=== PATIENT | male | born 1955 | race Caucasian/White ===

== ENCOUNTER 2016-04-17 08:34 | Emergency (ER) | payer MEDICARE, OTHER ==
[~2016-04-17] VITALS: Ht 175.3 cm; Wt 120.0 kg
[~2016-04-17 08:34] MED LIST: AMIT50TA3 PO; APR50 PO; ATOR40TA68 PO; CARV12.579 PO; CLON-379 PO; CLOP75TA28 PO; CYCL-319 PO; DEXL60CA2 PO; DULO60CA6 PO; FENO145T19 PO; GABA-528 PO; HYDR-2059 PO; ICOS1CAP PO; INSU200I4 SC; METO50TA16 PO; MIDO5TAB19 PO; ONDA4TAB8 PO; TAMS0.4C2 PO; ZOLP10TA PO
[2016-04-17 08:36] VITALS: Ht 175.3 cm; Wt 120.0 kg
[2016-04-17] MEDS ORDERED: ALBUTEROL 0.5% (NEB) 2.5 MG/0.5 ML AMP INH STA ×2 (08:39→11:17)
[2016-04-17] MEDS ORDERED: LIDOCAINE 1% (MDV) 20 ML INJ SC ONE (09:30)
--- NOTE | 2016-04-17 09:30 | RADRPT ---
PROCEDURE: Chest x-ray CLINICAL INDICATION: SOB. TECHNIQUE: One-view frontal. COMPARISON: 12/08/2015 FINDINGS: The patient has taken a limited inspiration. The cardiac silhouette is mildly enlarged. Dual lead AICD device is again noted overlie the right shoulder. No infiltrates are noted. No hilar abnormalities are noted. No pneumothorax is visualized. Mild aortic calcification/atherosclerosis is noted. IMPRESSION: 1. No active cardiopulmonary changes. RPTAT: HH .Karl Davis MD, Date Time Electronically viewed and signed by .Karl Davis MD, on 04/17/2016 09:29 .G/
[2016-04-17 09:35] LABS: BASOPHILS % 0.3 % (0.0-2.0); EOSINOPHILS # 0.4 10^3/ul (0.0-0.5); HEMATOCRIT 32.7 % (42.0-52.0); HEMOGLOBIN 10.9 g/dl (14.0-18.0); LYMPHOCYTES # 1.5 10^3/ul (0.8-2.9); LYMPHOCYTES % 12.1 % (15.0-51.0); MEAN CORPUSCULAR HEMOGLOBIN 32.2 pg (29.0-33.0); MEAN CORPUSCULAR HGB CONC 33.3 g/dl (32.0-37.0); MEAN CORPUSCULAR VOLUME 96.6 fl (82.0-101.0); MEAN PLATELET VOLUME 7.8 fl (7.4-10.4); MONOCYTE # 0.9 10^3/ul (0.3-0.9); NEUTROPHIL # 9.7 10^3/ul (1.6-7.5); NEUTROPHILS % 77.6 % (39.0-77.0); PLATELET COUNT 260 10^3/UL (140-440); RED BLOOD COUNT 3.38 10^6/ul (4.70-6.10); RED CELL DISTRIBUTION WIDTH 17.5 % (11.5-14.5); UNCORRECTED WBC 12.5 10^3/ul (4.8-10.8); WHITE BLOOD COUNT 12.5 10^3/ul (4.8-10.8)
[2016-04-17 09:37] LABS: CONDITION 1; LH ANALYZER COMMENTS 1
[2016-04-17 09:41] LABS: ALBUMIN 4.4 g/dl (3.3-4.9)
[2016-04-17 09:42] LABS: POTASSIUM 4.1 mmol/L (3.5-5.1)
[2016-04-17 09:44] LABS: BILIRUBIN,INDIRECT 0.2 mg/dl (0-1.1); BILIRUBIN,TOTAL 0.2 mg/dl (0.2-1.3); CREATININE 1.54 mg/dl (0.61-1.24)
[2016-04-17 09:45] LABS: ALBUMIN/GLOBULIN RATIO 1.22; CALCIUM 8.9 mg/dl (8.4-10.2)
[2016-04-17 09:46] LABS: INR 0.99; PROTIME 13.1 Sec (12.2-14.2)
[2016-04-17 09:47] LABS: PARTIAL THROMBOPLASTIN TIME 34.8 Sec (25.0-35.0)
[2016-04-17 09:57] LABS: TROPONIN-I 0.035 ng/ml (0.00-0.12)
--- NOTE | 2016-04-17 10:17 | RADRPT ---
PROCEDURE: US Abdominal Aorta. CLINICAL INDICATION: AAA screening. TECHNIQUE: Transabdominal ultrasound of the aorta was performed with sagittal and transverse imagi ng as well as color and Doppler interrogation. COMPARISON: None available FINDINGS: Proximal aorta: 1.8 cm in diameter. Mid aorta: 1.6 cm in diameter. IMPRESSION: Examination is limited due to overlying bowel gas. The distal segment of the abdominal aorta is not well visualized. No evidence of aortic aneurysm in the visualized segments of the abdominal aorta. RPTAT: EE .Faizan Cleary MD, MD Date Time Electronically viewed and signed by .Faizan Cleary MD, MD on 04/17/2016 10:20 .C/
--- NOTE | 2016-04-17 12:57 | ERD ---
ER Documentation Chief Complaint Date/Time DATE: 04/17/16 TIME: 08:35 Chief Complaint PT IN ED FOR EVAL OF SOB. HPI On arrival history is extremely limited due language barrier but was subsequently obtained through the patient's son and then later his . 60-year-old male with extensive medical history including hypertension, dyslipidemia, diabetes mellitus type 2, COPD, oxygen dependent, end-stage renal disease on dialysis, morbid obesity, recurrent syncopal episode status post AICD placement, coronary artery disease, severe peripheral vascular disease and congestive heart failure brought to the ED in a wheelchair after dialysis today complaining of increasing shortness of breath. For the last 2 days has had nonspecific URI with nasal congestion, nonproductive cough and mild increasing shortness of breath and wheezing. Did not feel better after dialysis today. Denies chest pain or palpitation. No abdominal pain, nausea vomiting. Denies leg pain or swelling. No headache, neck pain, focal weakness or numbness. No fevers or chills. ROS All systems reviewed and are negative except as per history of present illness. Medications Home Meds Active Scripts Ondansetron Hcl* (Zofran*) 4 Mg Tablet, 4 MG PO Q8H Y for NAUSEA AND/OR VOMITING , #10 TAB Prov:MELVIN MONTGOMERYJACQUE DO 12/02/15 Reported Medications Icosapent Ethyl (VASCEPA) 1 Gm Capsule, 1 GM PO BID, CAP 12/02/15 Amitriptyline Hcl* (Amitriptyline Hcl*) 50 Mg Tablet, 50 MG PO QHS, #30 TAB 12/02/15 Dexlansoprazole (Dexilant) 60 Mg Cap., 60 MG PO DAILY, #30 CAP 09/27/15 Cyclobenzaprine Hcl* (Cyclobenzaprine Hcl*) 10 Mg Tablet, 10 MG PO TID, #90 TAB 09/27/15 Carvedilol* (Carvedilol*) 12.5 Mg Tablet, 12.5 MG PO BID, #60 TAB 09/27/15 Hydrocodone Bit-Acetaminophen* (Hydrocodone-APAP*) 10-325 Tablet, 1 TAB PO BID Y for PAIN, TAB 09/27/15 Insulin Degludec (Tresiba Flextouch U-200) 200 Unit/1 Ml Insuln.pen, 40 UNITS SC QHS, #15 07/28/15 Fenofibrate Nanocrystallized* (Fenofibrate*) 145 Mg Tablet, 145 MG PO DAILY, #30 07/28/15 Gabapentin* (Gabapentin*) 800 Mg Tablet, 800 MG PO TID, #90 07/28/15 Clopidogrel Bisulfate (Clopidogrel) 75 Mg Tablet, 75 MG PO DAILY, #30 07/28/15 Duloxetine Hcl* (Cymbalta*) 60 Mg Capsule.dr, 60 MG PO DAILY, CAP 07/28/15 Midodrine* (Midodrine*) 5 Mg Tablet, 5 MG PO TID, #90 07/28/15 Hydralazine Hcl* (Hydralazine Hcl*) 50 Mg Tab, 50 MG PO Q8, #90 TAB 07/28/15 Clonidine Hcl* (Clonidine Hcl*) 0.1 Mg Tab, 0.1 MG PO BID Y for ELEVATED BLOOD PRESSURE, TAB 07/28/15 Atorvastatin* (Atorvastatin*) 40 Mg Tablet, 40 MG PO QHS, #30 TAB 07/28/15 Tamsulosin Hcl* (Tamsulosin Hcl*) 0.4 Mg Cap.er.24h, 0.4 MG PO HS, CAP 07/28/15 Metoprolol Succinate* (Toprol XL*) 50 Mg Tab.er.24h, 50 MG PO DAILY, #30 TAB 07/28/15 Zolpidem Tartrate* (Ambien*) 10 Mg Tablet, 10 MG PO QHS Y for INSOMNIA, TAB 07/28/15 Discontinued Reported Medications Icosapent Ethyl (VASCEPA) 1 Gm Capsule, 1 GM PO BID, CAP 09/27/15 Allergies Allergies: Coded Allergies: No Known Allergies (Verified Allergy, Mild, 12/03/15) PMhx/Soc Reviewed in chart. As per HPI. History of Surgery: Yes (HTN, [place], COPD, GERD, DM, CKD W/ DIALYSIS, DIABETIC FOOT, RT TOE AMP.) Anesthesia Reaction: No Hx Neurological Disorder: No Hx Respiratory Disorders: Yes (COPD) Hx Cardiac Disorders: Yes (HTN, heart attack, ) Hx Psychiatric Problems: Yes (depression) Hx Miscellaneous Medical Probl: Yes (HTN, [place], COPD, GERD, DM, CKD W/ DIALYSIS, DIABETIC FOOT, RT TOE AMP.) Hx Alcohol Use: No Hx Substance Use: No Hx Tobacco Use: Yes Smoking Status: Never smoker FmHx COPD, diabetes and hypertension Physical Exam Vitals Vital Signs Date Time Temp Pulse Resp B/P Pulse Ox O2 Delivery O2 Flow Rate FiO2 04/17/16 12:10 98.1 92 14 116/44 99 Room Air 2.0 04/17/16 11:27 91 19 99 Nasal Cannula 2.0 04/17/16 10:18 98.1 92 16 157/57 100 Room Air 3.0 04/17/16 08:53 93 20 99 Nasal Cannula 3.0 04/17/16 08:49 Nasal Cannula 2.0 04/17/16 08:49 Nasal Cannula 2 04/17/16 08:36 97.9 98 18 136/120 99 Physical Exam Const: Alert, mild to moderate respiratory distress. Head: Atraumatic Eyes: Normal Conjunctiva ENT: Normal External Ears, Nose and Mouth. Neck: Full range of motion. No JVD Resp: Breath sounds diminished bilaterally with moderate expiratory wheezing and prolonged expiratory phase. No rales or rhonchi Cardio: Regular rate and rhythm, no murmurs Abd: Soft, distended, non tender, non distended. Normal bowel sounds. Negative fluid wave. No rebound or guarding Skin: No petechiae or rashes Back: No midline or flank tenderness Ext: No cyanosis. 1+ edema Neur: Awake and alert. Cranial nerves II through XII are grossly intact. No focal deficit observed. Psych: Appears anxious but not depressed. Result Diagram: 04/17/1692404/17/16924 Results 24 hrs Laboratory Tests Test 04/17/16 09:25 Activated Partial Thromboplast Time 34.8Sec Alanine Aminotransferase (ALT/SGPT) 33IU/L Albumin 4.4g/dl Albumin/Globulin Ratio 1.22 Alkaline Phosphatase 84IU/L Anion Gap 14 Aspartate Amino Transf (AST/SGOT) 45IU/L Basophils # 0.010^3/ul Basophils % 0.3% Blood Morphology Comment Blood Urea Nitrogen 14mg/dl Calcium Level 8.9mg/dl Carbon Dioxide Level 38mmol/L Chloride Level 92mmol/L Creatinine 1.54mg/dl Direct Bilirubin 0.00mg/dl Eosinophils # 0.410^3/ul Eosinophils % 3.0% Globulin 3.60g/dl Glucose Level 182mg/dl Hematocrit 32.7% Hemoglobin 10.9g/dl INR International Normalized Ratio 0.99 Indirect Bilirubin 0.2mg/dl Lymphocytes # 1.510^3/ul Lymphocytes % 12.1% Mean Corpuscular Hemoglobin 32.2pg Mean Corpuscular Hemoglobin Concent 33.3g/dl Mean Corpuscular Volume 96.6fl Mean Platelet Volume 7.8fl Monocytes # 0.910^3/ul Monocytes % 7.0% Neutrophils # 9.710^3/ul Neutrophils % 77.6% Nucleated Red Blood Cells # 0.010^3/ul Nucleated Red Blood Cells % 0.0/100WBC Platelet Count 78154^3/UL Potassium Level 4.1mmol/L Prothrombin Time 13.1Sec Prothrombin Time Ratio 1.0 Red Blood Count 3.3810^6/ul Red Cell Distribution Width 17.5% Sodium Level 140mmol/L Total Bilirubin 0.2mg/dl Total Protein 8.0g/dl Troponin I 0.035ng/ml White Blood Count 12.510^3/ul Current Medications Medications (Trade) Dose Ordered Sig/Rehana Route PRN Reason Start Time Stop Time Status Last Admin Dose Admin Albuterol (Proventil 0.5% (Neb)) 15 mg ONCE STAT INH 04/17/16 08:39 04/17/16 08:41 DC 04/17/16 08:53 Lidocaine (Xylocaine 1% (Mdv) 20 ml) 20 ml ONCE ONCE SC 04/17/16 09:30 04/17/16 09:31 DC Albuterol (Proventil 0.5% (Neb)) 15 mg ONCE STAT INH 04/17/16 11:17 04/17/16 11:18 DC 04/17/16 11:24 RHYTHM STRIP INTERPRETATION: Time: 08:55. Sinus rhythm. Ventricular rate 95. No ectopy. Indication: Shortness of breath. EKG: TIME: 08: 34. Sinus rhythm. Ventricular rate 98. Normal MD QRS. Nonspecific ST-T wave changes. No acute ST segment elevation or depression. No ectopy. EP Interpretation: Abnormal EKG. IMAGING: PROCEDURE: Chest x-ray CLINICAL INDICATION: SOB. TECHNIQUE: One-view frontal. COMPARISON: 12/08/2015 FINDINGS: The patient has taken a limited inspiration. The cardiac silhouette is mildly enlarged. Dual lead AICD device is again noted overlie the right shoulder. No infiltrates are noted. No hilar abnormalities are noted. No pneumothorax is visualized. Mild aortic calcification/atherosclerosis is noted. IMPRESSION: 1. No active cardiopulmonary changes. RPTAT: HH .Karl Davis MD, MD Date Time Electronically viewed and signed by .Karl Davis MD, MD on 04/17/2016 09: 29 .G/ Procedures/MDM DOCUMENTS REVIEWED: ED nurse, prior ED, prior records ED COURSE: Nebulized albuterol 15 mg/Atrovent 1 mg X 2 REEXAMINATION/REEVALUATION: Time: 11: 00. Improved but still with mild expiratory wheezing. MEDICAL DECISION MAKIN-year-old male with extensive medical history including hypertension, dyslipidemia, diabetes mellitus type 2, COPD, oxygen dependent, end-stage renal disease on dialysis, morbid obesity, recurrent syncopal episode status post AICD placement, coronary artery disease, severe peripheral vascular disease and congestive heart failure brought to the ED in a wheelchair after dialysis today complaining of increasing shortness of breath. Presentation consistent with COPD exacerbation possibly exacerbated by bronchitis. Symptoms resolved completely with nebulized beta agonists. Because of the patient's fragile diabetes and risk of hyperglycemia steroids were not given. No radiographic evidence of pneumonia or volume overload. No chest pain, ischemic EKG changes or elevated troponin. Observed in the ED for over 4 hours, multiple examinations were performed. At 12: 57 is doing well. Lungs are clear. No shortness of breath. Feels well and wants to go home. Counseled patient and regarding diagnostic workup, diagnosis and need for followup. Understands to return to ED immediately if symptoms recur, worsen or any other concerns. Departure Diagnosis: Primary Impression: Acute exacerbation of chronic obstructive pulmonary disease (COPD) Additional Impressions: Acute dyspnea End stage renal disease on dialysis Hypertension Hypertension type: essential hypertension Qualified Code: I10 - Essential hypertension AICD (automatic cardioverter/defibrillator) present Condition: Stable (Improved) Patient Instructions: Copd Flare JESE RIVERO MD Apr 17, 2016 12:44
[2016-04-17] MEDS ORDERED: ALBU8.5H3 INH (12:58)
[2016-04-17 13:10] VITALS: BP 118/55; PULSE 90; RESP 14; TEMP 98.3
== END 2016-04-17 13:12 | disposition home or self-care (01) ==
LOC: E/R 08:34
DX: J44.1 Chronic obstructive pulmonary disease with (acute) exacerbation (principal); I12.0 Hypertensive chronic kidney disease with stage 5 chronic kidney disease or end stage renal disease; N18.6 End stage renal disease; R06.00 Dyspnea, unspecified; E11.9 Type 2 diabetes mellitus without complications; I25.10 Atherosclerotic heart disease of native coronary artery without angina pectoris; I50.9 Heart failure, unspecified; E66.01 Morbid (severe) obesity due to excess calories; Z99.2 Dependence on renal dialysis; Z95.810 Presence of automatic (implantable) cardiac defibrillator; Z79.4 Long term (current) use of insulin; Z68.39 Body mass index [BMI] 39.0-39.9, adult; Z87.891 Personal history of nicotine dependence
CPT/HCPCS: 36415; 71010; 76775; 80053; 84484; 85025; 85610; 85730; 87400; 93005; 94644; 94645

== ENCOUNTER 2016-07-05 20:39 | Inpatient (IN) | payer MEDICARE, OTHER ==
[~2016-07-05] VITALS: Ht 157.5 cm; Wt 90.9 kg
[~2016-07-05 20:39] MED LIST changes: +ALBU8.5H3 INH; -APR50 PO; +HYDR-3672 PO
[2016-07-05] MEDS ORDERED: ASPIRIN 325 MG TAB PO STA (20:44)
[2016-07-05] MEDS ORDERED: ALBUTEROL 0.083% (NEB) 2.5 MG/3 ML AMP HHN STA (20:57)
[2016-07-05] MEDS ORDERED: LORAZEPAM 2 MG INJ IV ONE (21:00)
[2016-07-05] MEDS ORDERED: IPRATROPIUM (NEB) 0.5 MG/2.5 ML AMP HHN ONE (21:00)
[2016-07-05 21:01] LABS: ADD SCAN DIFF NO
[2016-07-05 21:12] LABS: BASOPHIL # 0.1 10^3/ul (0.0-0.1); BASOPHILS % 0.8 % (0.0-2.0); EOSINOPHILS # 0.5 10^3/ul (0.0-0.5); EOSINOPHILS % 4.3 % (0.0-7.0); HEMOGLOBIN 13.8 g/dl (14.0-18.0); LYMPHOCYTES # 3.8 10^3/ul (0.8-2.9); LYMPHOCYTES % 29.9 % (15.0-51.0); MEAN CORPUSCULAR HEMOGLOBIN 29.1 pg (29.0-33.0); MEAN CORPUSCULAR VOLUME 96.8 fl (82.0-101.0); MEAN PLATELET VOLUME 11.2 fl (7.4-10.4); MONOCYTE # 0.5 10^3/ul (0.3-0.9); NEUTROPHIL # 7.6 10^3/ul (1.6-7.5); NEUTROPHILS % 60.5 % (39.0-77.0); PLATELET COUNT 225 10^3/UL (140-415); RED BLOOD COUNT 4.75 10^6/ul (4.70-6.10); RED CELL DISTRIBUTION WIDTH 13.5 % (11.5-14.5); WHITE BLOOD COUNT 12.6 10^3/ul (4.8-10.8)
[2016-07-05 21:15] LABS: POTASSIUM 4.9 mmol/L (3.5-5.1)
[2016-07-05 21:16] LABS: INR 0.97; PROTIME 12.9 Sec (12.2-14.2)
[2016-07-05 21:16] LABS: AADO2 Arterial 91.7 mmHg (7.0-24.0); Allen Test ACCEPTAB; Arterial Base Excess -1.9 mmol/L (-3.0-3); Arterial COHb 0.3 % (0.0-3.0); Arterial Fraction of Oxyhgb 98.8 % (93.0-99.0); Arterial HCO3 26.5 mmol/L (22.0-26.0); Arterial MetHb 0.5 % (0.0-1.5); Arterial Total Hemglobin 13.1 g/dl (12.0-18.0); Blood Gas IEPAP 18/6; MODE MASK - BIPAP
[2016-07-05 21:17] LABS: PARTIAL THROMBOPLASTIN TIME 37.3 Sec (25.0-35.0)
[2016-07-05 21:19] LABS: CALCIUM 9.6 mg/dl (8.4-10.2)
[2016-07-05 21:44] LABS: TROPONIN-I 0.141 ng/ml (0.00-0.12)
--- NOTE | 2016-07-05 21:57 | RADRPT ---
PROCEDURE: XR Chest. CLINICAL INDICATION: Shortness of breath. TECHNIQUE: Portable AP upright view of the chest was obtained. COMPARISON: 04/17/2016 FINDINGS: The cardiomediastinal silhouette is enlarged, unchanged with a dual chamber right subclavian approac h cardiac pacemaker again noted. Interval development of interstitial edema. Small bilateral pleur al effusions with fluid in the minor fissure now identified. No evidence of pneumothorax. The osse ous structures are intact with no evidence for acute abnormality. Calcification is visible within th e aorta RPTAT:HJJR IMPRESSION: Interval development of interstitial edema and small pleural effusions including fluid in the minor fissure for this patient with stable cardiac silhouette enlargement and cardiac pacemaker, findings compatible with congestive heart failure pattern and not present on 04/17/2016. Physician Gilberto Date Time Electronically viewed and signed by Physician Gilberto on 07/05/2016 21:57 /
[2016-07-05] MEDS ORDERED: ONDANSETRON 4 MG INJ IV PRN (22:30)
[2016-07-05] MEDS ORDERED: ACETAMINOPHEN 325 MG TAB PO PRN (22:30)
[2016-07-05] MEDS ORDERED: ESOM40CA PO ×2 (22:38→23:45)
[2016-07-05] MEDS ORDERED: FER325 PO ×2 (22:38→23:45)
[2016-07-05] MEDS ORDERED: DOCU-159 PO ×2 (22:38→23:45)
[2016-07-05] MEDS ORDERED: FURO40TA4 PO ×2 (22:39→23:45)
[2016-07-05] MEDS ORDERED: GABA300C16 PO ×2 (22:40→23:45)
[2016-07-05] MEDS ORDERED: HYDR-906 PO (22:40)
[2016-07-05] MEDS ORDERED: APIX2.5T PO ×2 (22:41→23:45)
[2016-07-05] MEDS ORDERED: ASPI81TA3 PO ×2 (22:42→23:45)
[2016-07-05] MEDS ORDERED: METO-429 PO ×2 (22:43→23:45)
[2016-07-05] MEDS ORDERED: SEVE800T7 PO ×2 (22:44→23:45)
[2016-07-05] MEDS ORDERED: SITA100T8 PO ×2 (22:44→23:45)
[2016-07-05] MEDS ORDERED: NOVO3I SC ×2 (22:46→23:45)
[2016-07-05] MEDS ORDERED: INSU100I31 SQ ×2 (22:47→23:45)
[2016-07-05] MEDS ORDERED: LANT3I SC ×3 (22:49→23:45)
[2016-07-05] MEDS ORDERED: INSULIN LISPRO 100 UNIT/ML VIAL SC STA (23:22)
--- NOTE | 2016-07-05 23:31 | ERA ---
ER Documentation Chief Complaint Date/Time DATE: 07/05/16 TIME: 23:19 Chief Complaint BIBA RA 62,c/o SOB, wheezing,88% on room air,c/o back neck pain HPI This 61-year-old male brought on by paramedics in respiratory extremist on CPAP for shortness of breath that began earlier this evening. Satting 88% on room air on the paramedics arrival. He did have back and neck pain. Patient is unable to speak currently. I reviewed his EMR and he has been diagnosed with both COPD and CHF. He denies chest pain. Reportedly he missed 2 dialysis appointments. ROS Unobtainable because of clinical condition Medications Home Meds Reported Medications Insulin Glargine* (Lantus*) 100 Unit/Ml Soln, 40 UNIT SC QHS, #1 VIAL 07/05/16 Insulin Glargine* (Lantus*) 100 Unit/Ml Soln, 20 UNIT SC QAM, #1 VIAL 07/05/16 Insulin Degludec (Tresiba Flextouch U-100) 100 Unit/1 Ml Insuln.pen, 40 UNIT SQ QHS 07/05/16 Insulin Aspart* (Novolog Insulin Pen*) 100 Unit/Ml Soln, 10 UNIT SC WITH MEALS, EA 07/05/16 Sitagliptin* (Januvia*) 100 Mg Tablet, 100 MG PO DAILY, #30 TAB 07/05/16 Sevelamer Carbonate* (Renvela*) 800 Mg Tablet, 0.8 GM PO WITH MEALS, TAB 07/05/16 Metoprolol Tartrate* (Lopressor*) 50 Mg Tab, 50 MG PO DAILY, #60 TAB 07/05/16 Aspirin* (Aspirin* Chew) 81 Mg Tab.chew, 81 MG PO DAILY, TAB.CHEW 07/05/16 Apixaban* (Eliquis*) 2.5 Mg Tablet, 2.5 MG PO QAM, TAB 07/05/16 Hydrocodone/Acetaminophen ([place] 5-325 Tablet) 1 Each Tablet, 1 EACH PO Q6H, TAB 07/05/16 Gabapentin* (Gabapentin*) 300 Mg Capsule, 300 MG PO TID, #90 CAP 07/05/16 Furosemide* (Furosemide*) 40 Mg Tablet, 40 MG PO DAILY, TAB 07/05/16 Ferrous Sulfate* (Ferrous Sulfate*) 325 Mg Tabec, 325 MG PO TID, TAB 07/05/16 Esomeprazole Mag Trihydrate (Nexium) 40 Mg Capsule.dr, 40 MG PO DAILY, #30 CAP 07/05/16 Docusate Sodium* (Docusate Sodium*) 100 Mg Capsule, 100 MG PO TWICE A WEEK, #60 CAP 07/05/16 Dexlansoprazole (Dexilant) 60 Mg Cap..mp, 60 MG PO DAILY, #30 CAP 09/27/15 Cyclobenzaprine Hcl* (Cyclobenzaprine Hcl*) 10 Mg Tablet, 10 MG PO Q6H, #90 TAB 09/27/15 Carvedilol* (Carvedilol*) 12.5 Mg Tablet, 12.5 MG PO QAM, #60 TAB 09/27/15 Fenofibrate Nanocrystallized* (Fenofibrate*) 145 Mg Tablet, 145 MG PO DAILY, #30 07/28/15 Gabapentin* (Gabapentin*) 800 Mg Tablet, 800 MG PO TID, #90 07/28/15 Clopidogrel Bisulfate (Clopidogrel) 75 Mg Tablet, 75 MG PO DAILY, #30 07/28/15 Duloxetine Hcl* (Cymbalta*) 60 Mg Capsule.dr, 60 MG PO DAILY, CAP 07/28/15 Atorvastatin* (Atorvastatin*) 40 Mg Tablet, 40 MG PO QHS, #30 TAB 07/28/15 Tamsulosin Hcl* (Tamsulosin Hcl*) 0.4 Mg Cap.er.24h, 0.4 MG PO HS, CAP 07/28/15 Zolpidem Tartrate* (Ambien*) 10 Mg Tablet, 10 MG PO QHS Y for INSOMNIA, TAB 07/28/15 Discontinued Reported Medications Icosapent Ethyl (VASCEPA) 1 Gm Capsule, 1 GM PO BID, CAP 12/02/15 Amitriptyline Hcl* (Amitriptyline Hcl*) 50 Mg Tablet, 50 MG PO QHS, #30 TAB 12/02/15 Hydrocodone Bit-Acetaminophen* (Hydrocodone-APAP*) 10-325 Tablet, 1 TAB PO BID Y for PAIN, TAB 09/27/15 Insulin Degludec (Tresiba Flextouch U-200) 200 Unit/1 Ml Insuln.pen, 40 UNITS SC QHS, #15 07/28/15 Midodrine* (Midodrine*) 5 Mg Tablet, 5 MG PO TID, #90 07/28/15 Hydralazine Hcl* (Hydralazine Hcl*) 50 Mg Tab, 50 MG PO Q8, #90 TAB 07/28/15 Clonidine Hcl* (Clonidine Hcl*) 0.1 Mg Tab, 0.1 MG PO BID Y for ELEVATED BLOOD PRESSURE, TAB 07/28/15 Metoprolol Succinate* (Toprol XL*) 50 Mg Tab.er.24h, 50 MG PO DAILY, #30 TAB 07/28/15 Discontinued Scripts Albuterol Sulfate* (Proair HFA*) 8.5 Gm Hfa.aer.ad, 2 PUFF INH Q4H Y for WHEEZING AND SOB, #1 INHALER Prov:JESE RIVERO MD 04/17/16 Ondansetron Hcl* (Zofran*) 4 Mg Tablet, 4 MG PO Q8H Y for NAUSEA AND/OR VOMITING , #10 TAB Prov:MARCEL MONTGOMERY DO 12/02/15 Allergies Allergies: Coded Allergies: No Known Allergies (Verified Allergy, Mild, 07/05/16) PMhx/Soc History of Surgery: Yes (HTN, [place], COPD, GERD, DM, CKD W/ DIALYSIS, DIABETIC FOOT, RT TOE AMP.) Anesthesia Reaction: No Hx Neurological Disorder: No Hx Respiratory Disorders: Yes (COPD) Hx Cardiac Disorders: Yes (HTN, heart attack, ) Hx Psychiatric Problems: Yes (depression) Hx Miscellaneous Medical Probl: Yes (HTN, [place], COPD, GERD, DM, CKD W/ DIALYSIS, DIABETIC FOOT, RT TOE AMP.) Hx Alcohol Use: No Hx Substance Use: No Hx Tobacco Use: Yes Smoking Status: Current every day smoker Physical Exam Vitals Vital Signs Date Time Temp Pulse Resp B/P Pulse Ox O2 Delivery O2 Flow Rate FiO2 07/05/16 22:55 86 100 40 07/05/16 22:35 94 18 129/53 100 BIPAP 07/05/16 21:25 93 100 40 07/05/16 20:50 110 100 100 07/05/16 20:42 97.6 108 22 207/110 100 Physical Exam Const: [] Severe respiratory distress on BiPAP. Head: Atraumatic Eyes: Normal Conjunctiva ENT: Normal External Ears, Nose and Mouth. Neck: Full range of motion..~ No meningismus. Resp: Decreased basilar breath sounds, bilateral Rales, tachypnea Cardio: Regular mild tachycardia no murmurs Abd: Soft, non tender, non distended. Normal bowel sounds Skin: No petechiae or rashes Back: No midline or flank tenderness Ext: No cyanosis, mild bilateral pedal edema Neur: Awake and alert and oriented 3, no focal deficits, further neuro exam not possible currently Psych: Very anxious Result Diagram: 07/05/16205407/05/162054 Results 24 hrs Laboratory Tests Test 07/05/16 20:44 07/05/16 20:55 Blood Gas Specimen Source Blood arterial Arterial Blood Date Drawn 07/05/2016 9:03:17 PM Arterial Blood pH (Temp corrected) 7.249 Arterial Blood pCO2 (Temp correct) 61.9mmhg Arterial Blood pO2 (Temp corrected) 559.4mmHG Arterial Blood HCO3 26.5mmol/L Arterial Blood Base Excess -1.9mmol/L Arterial Blood Oxygen Saturation 99.6mmHG Vin Test ACCEPTAB Arterial Blood Gas Puncture Site Left Radial Arterial Blood Carboxyhemoglobin 0.3% Arterial Blood Methemoglobin 0.5% Blood Gas A-a O2 Differential 91.7mmHg Oxyhemoglobin Percent 98.8% Total Hemoglobin 13.1g/dl Blood Gas Temperature 37.0C Blood Gas Respiration Rate 14.0 Blood Gas Actual Respiration Rate 32 Blood Gas Modality MASK - BIPAP FiO2 100.0% Blood Gas Inspiratory Time 0.6 Blood Gas IPAP/EPAP Ratio 18/6 Blood Gas Critical Value Read Back Dacia BARRY MD Blood Gas Notified Whom AA Blood Gas Notified Time 07/05/2016 9:16:16 PM White Blood Count 12.610^3/ul Red Blood Count 4.7510^6/ul Hemoglobin 13.8g/dl Hematocrit 46.0% Mean Corpuscular Volume 96.8fl Mean Corpuscular Hemoglobin 29.1pg Mean Corpuscular Hemoglobin Concent 30.0g/dl Red Cell Distribution Width 13.5% Platelet Count 48515^3/UL Mean Platelet Volume 11.2fl Neutrophils % 60.5% Lymphocytes % 29.9% Monocytes % 4.0% Eosinophils % 4.3% Basophils % 0.8% Nucleated Red Blood Cells % 0.0/100WBC Neutrophils # 7.610^3/ul Lymphocytes # 3.810^3/ul Monocytes # 0.510^3/ul Eosinophils # 0.510^3/ul Basophils # 0.110^3/ul Nucleated Red Blood Cells # 0.010^3/ul Prothrombin Time 12.9Sec Prothrombin Time Ratio 1.0 INR International Normalized Ratio 0.97 Activated Partial Thromboplast Time 37.3Sec Sodium Level 145mmol/L Potassium Level 4.9mmol/L Chloride Level 102mmol/L Carbon Dioxide Level 27mmol/L Anion Gap 21 Blood Urea Nitrogen 40mg/dl Creatinine 2.00mg/dl Glucose Level 288mg/dl Calcium Level 9.6mg/dl Troponin I 0.141ng/ml B-Type Natriuretic Peptide 3190PG/ML Current Medications Medications (Trade) Dose Ordered Sig/Rehana Route PRN Reason Start Time Stop Time Status Last Admin Dose Admin Aspirin (Aspirin) 325 mg ONCE STAT PO 07/05/16 20:44 07/05/16 20:46 DC 07/05/16 22:34 Lorazepam (Ativan) 1 mg ONCE ONCE IV 07/05/16 21:00 07/05/16 21:01 DC 07/05/16 20:50 Ipratropium [place] (Atrovent 0.02% (Neb)) 1 mg ONCE ONCE HHN 07/05/16 21:00 07/05/16 21:01 DC 07/05/16 21:30 Albuterol (Proventil 0.083% (Neb)) 10 mg ONCE STAT HHN 07/05/16 20:57 07/05/16 20:59 DC 07/05/16 21:30 Ondansetron HCl (Zofran Inj) 4 mg ER BRIDGE PRN IV NAUSEA AND/OR VOMITING 07/05/16 22:30 07/06/16 22:29 Acetaminophen (Tylenol Tab) 650 mg ER BRIDGE PRN PO MILD PAIN/FEVER 07/05/16 22:30 07/06/16 22:29 Procedures/MDM Respiratory failure due to combined fluid overload for missing dialysis as well as a PDA exacerbation. Patient was returning CO2. Blood gas obtained 20 minutes after BiPAP showed significant CO2 retention with partially compensated respiratory acidosis. Is medially placed on BiPAP. Is given a breathing treatment of albuterol and Atrovent. Mild troponin elevation likely secondary to renal failure and missing dialysis. Did have mild lateral ST depressions suspicious for ischemia. Patient was treated with 325 g aspirin. Is also treated with lispro insulin for hyperglycemia. Is given 1 mg of Ativan for extreme anxiety on arrival. He did well on BiPAP his breathing is much improved. Previous been stabilized is now appropriate for telemetry. I spoke with Dr. Cruz who will be admitting. EKG interpretation: Sinus tachycardia rate of 116, normal axis, normal intervals , mild ST depressions in lateral leads suspicious for ischemia. air sampling and monitoring interpretation: Sinus tachycardia followed by normal sinus rhythm. No other arrhythmias Chest x-ray interpretation: New bilateral pleural effusions, no pneumothorax, no widened mediastinum, no infiltrate, no fractures Cardio care time 44 minutes: This include treatment of hypoxic respiratory failure, use of noninvasive positive pressure ventilation, chart review with interpretation of arterial blood gases, ventilator setting management, discussion with patient, , admitting doctor, consideration of invasive intubation, this does not include any billable procedures but does include multiple visits patient's bedside to reassess his cardio pulmonary status. Departure Diagnosis: Primary Impression: Acute respiratory failure with hypoxia Additional Impressions: Fluid overload COPD exacerbation Hyperglycemia due to type 2 diabetes mellitus Acute electrocardiogram changes Condition: Serious ASHAMATYRICCO CRYSTAL Jul 05, 2016 23:30
[2016-07-05] MEDS ORDERED: ZOLP10TA PO (23:45)
[2016-07-05] MEDS ORDERED: FENO145T19 PO (23:45)
[2016-07-05] MEDS ORDERED: DULO60CA6 PO (23:45)
[2016-07-05] MEDS ORDERED: CYCL-319 PO (23:45)
[2016-07-05] MEDS ORDERED: ATOR40TA68 PO (23:45)
[2016-07-05] MEDS ORDERED: CLOP75TA28 PO (23:45)
[2016-07-06] VITALS (15 sets, daily range): BP systolic 112–172; BP diastolic 58–83; PULSE 70–86; RESP 19–20; Ht 157.5 cm; Wt 90.9 kg
[2016-07-06] MEDS ORDERED: ONDANSETRON 4 MG INJ IV PRN
--- NOTE | 2016-07-06 00:09 | HP ---
Date/Time of Note Date/Time of Note DATE: 07/06/16 TIME: 00:03 Assessment/Plan VTE Prophylaxis VTE Prophylaxis Intervention: ambulation, anti-embolic stocking, LMWH VTE Contraindication Reason: peripheral vascular disease Lines/Catheters (ICD-10 Req.) IV Catheter Type (from Nrs): [place] [employer] line still needed: No Ervin in Place (from Nrsg): No Cont'd ervin catheter reason: urinary retention Diagnosis/Etiology Acute Renal Failure due to: Other (specify) (CKD stage 5 with preserved mild function.) Assessment/Plan Assessment/Plan 1.CHF exacerbation,syst.and diastolic 2.DM type 2-out of control 3.COPD exacerbation with Hx of severe respiratory failue and wheezing ; s/ p multiple intubations and BIPAP use. 4.CKD stage 5 5.Anemia of chronic disease-s/p multiple units of prbc Tx. 6.Sepsis- hx of cellulitis of right foot with s/p of distal amputation. S/P multiple vascular and debridement surgeries off feet Swelling of the foot with d/c and pain. 7.Osteomyelitis of the metatarsal(Hx )on the right. 8.Pain syndrome 9.Severe diabetic ophthalmo-neuro and nephropathy 10. Severe PAD 11.S/P ICD implantation 12.S/P recurrent syncopal episodes, clinical deaths, resuscitations, intubation, mechanical ventilation and successful extubation 13. Hx of possible seizure d/o 14.MD and memory impairment, anxiety,noncomplience. 15.Inability to control eating impulses 16.S/P multiple vascular procedures. 17.Increased appetite 18.Severe CAD 19.Memory impairment 20.C02 retention with current Pc02 more than 50s. BIPAP for now. 21.Multiorgan failure. 22.More irrational thinking and abnormal behavior. 23.Recurrent syncopal vs vent.fib. vs cardiac arrest vs seizure episodes, possible al of them with multiple intubations and Mechanical ventilation prior to ICD implantation. 24.Multiple hospitalizations 25.Hx of MRSA infections of the food and positive culture from blood.Hx of Vancomycin use at home and in hospital settings. the patient has very supportive family. Time Spent 1 hour 20 minutes. HPI/ROS Admit Date/Time Admit Date/Time Hx of Present Illness Admitted in severe SOB.Wheezing with pulmonary edema and hypercapnia.Improved after bipap and lasix along with bronchodilatory therapy in er while being in pain and sleepless condition. Most of the information taken from the . Missed 2-3 HD.Try to compensate with increase of the dose of a lasix. Took excessive amount of pepsy and cola with water. Noncompliant to medication while being in a trip to [place] for about 5 days. regrets that they took him to trip. While having a high blood sugar he was unable to control eating and drinking sweats. ROS Subjective hx not possible: pt critical Constitutional: chills, diaphoresis, disoriented, fatigue, nausea, weight change, No febrile, No improved, No no complaints, No other, No poor po Eyes: discharge, visual change, No no complaints, No other, No pain, No redness ENT: No bleeding, No congestion, No discharge, No dysphagia, No no complaints, No other, No pain, No sore throat Respiratory: cough, pleuritic pain, shortness of breath, wheezing Cardiovascular: chest pain, edema, lightheadedness, orthopenea, paroxysmal nocturnal dyspnea, No no complaints, No other, No palpitations Gastrointestinal: constipation, flatus, nausea, pain, passing stool, No blood, No decreased appetite, No diarrhea, No no complaints, No other, No vomiting Genitourinary: dysuria, flank pain, No bleeding, No discharge, No hematuria, No no complaints, No other Musculoskeletal: back pain, bone/joint pain, neck pain Skin: pruritis, skin lesions, No bruising, No erythema, No laceration, No no complaints, No other, No rash Neurologic: confusion, dizziness, headache, No focal-weakness, No no complaints, No other, No seizure, No syncope Endocrine: polydypsia, temp intolerance, weight change Lymphatic: No adenopathy, No lymphadema, No no complaints, No other, No tender nodes Psychological: anxiety, confusion, depression, other (On and confused.Unable to folow th track of thought every time.Impaire more short then skilled nursing memory.) Immunologic: pruritis PMH/Family/Social Past Medical History Medical History: angina, colitis, congestive heart failure, coronary artery disease, diabetes, diverticulitis, GERD, GI bleed, high cholesterol, hypertension, pancreatitis, peptic ulcer disease, renal disease, urinary tract infection Past Surgical History Past Surgical Hx: angioplasty, coronary bypass surgery, endoscopy Family History Significant Family History: asthma, heart disease, COPD, diabetes, hypertension , lung disease, renal disease, vascular disease Social History Alcohol Use: none Smoking Status: Current every day smoker Drug Use: none Exam/Review of Systems Vital Signs Vitals Vital Signs Date Time Temp Pulse Resp B/P Pulse Ox O2 Delivery O2 Flow Rate FiO2 07/05/16 22:55 86 100 40 07/05/16 22:35 18 129/53 BIPAP 07/05/16 20:42 97.6 Exam Constitutional: alert, frail, oriented (disorinted in time and place.), other (obese.), well developed Psych: anxiety, confusion, depression, No nl mood/affect, No no complaints, No other, No suicidal Head: atraumatic Eyes: EOMI, PERRL (unequal pupils with pale conjunctivas with prominent periorbital edema.), nl lids, No fundi, disc, No icteric, No nl conjunctiva, No nl sclera, No other ENMT: nl lips & teeth (no teet.Dentures.), No intubated, No mucosa pink and moist, No nl external ears & nose, No nl nasal mucosa & septum, No other, No tympanic membranes Neck: bruits, jvd, supple, thyromegaly, No masses, No non-tender, No nuchal rigidity, No other Respiratory: congested cough, crackles/rales, diminished breath sounds, respirations, wheezing Cardiovascular: bruits, edema, jugular venous distention (JVD), other (right sibclavian icd palpable without fluid acumulation or erythema in that region.), rub, systolic murmur Gastrointestinal: ascites, bowel sounds, distended, hepatomegaly, soft, surgical scars, No firm, No mass, No nl liver, spleen, No non-tender, No other, No rebound or guarding, No splenomegaly, No tender Genitourinary - Male: CVA tenderness, nl penis, nl scrotum, No discharge, No other Musculoskeletal: joint tenderness, muscle tone, muscle weakness, other (tremor of hands with inability grasp items. Unable to sense. SEvere decrease of sensation periperially to pain, touch and vibration.), range of motion, swelling Extremities: calf tenderness, cyanosis, edema, other (s/p right distal food amputation. S/p multiple left more than righ aorto-popliteal endovascular procedures and surgeries with scars of the left medial femoral and righ leg. unable to palpate pulses of the legs. Positive for carotid bruit bilaterally.), pitting pedal edema Neurological: [employer]ATOR II-XII intact (decreased hearing.) Skin: diaphoresis, ecchymosis, puncture, rash or lesions Lymph: No enlarged, No nl lymph nodes, No nontender, No other Labs Result Diagram: 07/05/16205407/05/162054 LAURA AHN MD Jul 06, 2016 00:09
[2016-07-06] MEDS: ALBUTEROL 0.083% (NEB) 2.5 MG/3 ML AMP HHN SCH ×4 (02:50→20:00)
[2016-07-06 03:22] LABS: CK-MB 3.34 ng/ml (0.0-2.4)
[2016-07-06 03:24] LABS: TROPONIN-I 0.124 ng/ml (0.00-0.12)
[2016-07-06] MEDS: IPRATROPIUM (NEB) 0.5 MG/2.5 ML AMP HHN SCH ×3 (07:40→20:00)
[2016-07-06 07:53] LABS: IRON 30 ug/dl (35-150)
[2016-07-06 08:02] LABS: TOTAL IRON BINDING CAPACITY 280 ug/dl (241-421)
[2016-07-06 12:12] LABS: TROPONIN-I 0.116 ng/ml (0.00-0.12)
[2016-07-06 12:21] LABS: CK-MB 2.89 ng/ml (0.0-2.4)
--- NOTE | 2016-07-06 12:47 | CONS ---
Date/Time of Note Date/Time of Note DATE: 07/06/16 TIME: 12:41 Assessment/Plan Assessment/Plan Problems: (1) BPH (benign prostatic hypertrophy) with urinary retention Status: Chronic (2) Sleep apnea with hypersomnolence Status: Chronic (3) Diabetes mellitus type 2 in obese Status: Chronic (4) Hypertension Status: Chronic (5) Fluid overload Status: Acute (6) COPD exacerbation Status: Acute (7) Acute respiratory failure with hypoxia Status: Acute (8) Acute electrocardiogram changes Status: Acute (9) Hyperglycemia due to type 2 diabetes mellitus Status: Acute Additional Assessment/Plan Acute on chronic systolic HF PAD 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 Right severe disease. Dr Hightower insisted me to see him for his severe PAD as well as mild HF pt jose be on diuresis for today IV coreg plavix added. plan to switch to PO and f/u out pt with primary card. Consultation Date/Type/Reason Admit Date/Time Date of Consultation: Jul 06, 2016 Type of Consultation: Endovascular and Card Referring Provider: LAURA AHN MD Hx of Present Illness Patient is 61 year old male with pMH of severe PAD and wound ICMP, HTn, VT cardiac arrest came in with SOB and acute on chronic systolic HF with elevated trp and BNP Subjective hx not possible: pt non-verbal Constitutional: no complaints Past Medical History Medical History: angina Past Surgical History Past Surgical Hx: angioplasty, endoscopy Social History Smoking Status: Former smoker Exam/Review of Systems Vital Signs Vitals Vital Signs Date Time Temp Pulse Resp B/P Pulse Ox O2 Delivery O2 Flow Rate FiO2 07/06/16 11:57 97.7 87 20 172/77 100 07/06/16 09:49 Nasal Cannula 2.0 07/06/16 07:32 40 Intake and Output 07/05/16 07/05/16 07/06/16 15:00 23:00 07:00 Intake Total 250 ml Output Total 550 ml Balance -300 ml Exam Constitutional: alert, oriented Psych: no complaints Head: normocephalic Eyes: nl conjunctiva ENMT: nl external ears & nose Neck: supple Respiratory: clear to auscultation Results Result Diagram: 07/05/16205407/05/162054 Results 24 hrs Laboratory Tests Test 07/05/16 20:44 4/17/17 20:55 07/06/16 01:00 07/06/16 02:45 Blood Gas Specimen Source Blood arterial Arterial Blood Date Drawn 07/05/2016 9:03:17 PM Arterial Blood pH (Temp corrected) 7.249 *L Arterial Blood pCO2 (Temp correct) 61.9 H Arterial Blood pO2 (Temp corrected) 559.4 H Arterial Blood HCO3 26.5 H Arterial Blood Base Excess -1.9 Arterial Blood Oxygen Saturation 99.6 H Vin Test ACCEPTAB Arterial Blood Gas Puncture Site Left Radial Arterial Blood Carboxyhemoglobin 0.3 Arterial Blood Methemoglobin 0.5 Blood Gas A-a O2 Differential 91.7 H Oxyhemoglobin Percent 98.8 Total Hemoglobin 13.1 Blood Gas Temperature 37.0 Blood Gas Respiration Rate 14.0 Blood Gas Actual Respiration Rate 32 Blood Gas Modality MASK - BIPAP FiO2 100.0 Blood Gas Inspiratory Time 0.6 Blood Gas IPAP/EPAP Ratio 18 Blood Gas Critical Value Read Back Dacia BARRY MD Blood Gas Notified Whom AA Blood Gas Notified Time 07/05/2016 9:16:16 PM White Blood Count 12.6 H Red Blood Count 4.75 # Hemoglobin 13.8 #L Hematocrit 46.0 # Mean Corpuscular Volume 96.8 Mean Corpuscular Hemoglobin 29.1 Mean Corpuscular Hemoglobin Concent 30.0 L Red Cell Distribution Width 13.5 # Platelet Count 225 Mean Platelet Volume 11.2 #H Neutrophils % 60.5 Lymphocytes % 29.9 Monocytes % 4.0 Eosinophils % 4.3 Basophils % 0.8 Nucleated Red Blood Cells % 0.0 Neutrophils # 7.6 H Lymphocytes # 3.8 H Monocytes # 0.5 Eosinophils # 0.5 Basophils # 0.1 Nucleated Red Blood Cells # 0.0 Prothrombin Time 12.9 Prothrombin Time Ratio 1.0 INR International Normalized Ratio 0.97 Activated Partial Thromboplast Time 37.3 H Sodium Level 145 H Potassium Level 4.9 Chloride Level 102 Carbon Dioxide Level 27 Anion Gap 21 H Blood Urea Nitrogen 40 H Creatinine 2.00 H Glucose Level 288 H Calcium Level 9.6 Troponin I 0.141 *H 0.124 *H B-Type Natriuretic Peptide 3190 H Bedside Glucose 238 H Creatine Kinase 82 Creatine Kinase Index 4.1 Creatinine Kinase MB (Mass) 3.34 H Test 07/06/16 05:22 07/06/16 10:18 07/06/16 11:20 Iron Level 30 L Total Iron Binding Capacity 280 Percent Iron Saturation 11 L Troponin I 0.116 0.116 Thyroid Stimulating Hormone (TSH) 1.540 Bedside Glucose 198 Creatine Kinase 88 Creatine Kinase Index 3.3 Creatinine Kinase MB (Mass) 2.89 H Medications Medications Current Medications Ondansetron HCl (Zofran Inj) 4 mg Q6 PRN IV NAUSEA AND/OR VOMITING; Start 07/06 at 00:00 JENIFER ULRICH MD Jul 06, 2016 12:47
[2016-07-06] MEDS ORDERED: HYDROCODONE/APAP (7.5/325) TAB PO PRN (13:30)
[2016-07-06] MEDS: CLOPIDOGREL 75 MG TAB PO SCH (13:41)
[2016-07-06] MEDS: FUROSEMIDE 40 MG INJ IV SCH (13:42)
[2016-07-06] MEDS ORDERED: ZOLPIDEM 5 MG TAB PO PRN (14:00)
[2016-07-06] MEDS ORDERED: GLUCOSE GEL 15 GRAM TUBE BUCCAL PRN (14:00)
[2016-07-06] MEDS ORDERED: HYDROCODONE/APAP (5/325) TAB PO SCH (14:00)
[2016-07-06] MEDS ORDERED: GLUCOSE GEL 15 GRAM TUBE PO PRN ×2 (14:00)
[2016-07-06] MEDS ORDERED: GLUCAGON 1 MG INJ IM PRN (14:00)
[2016-07-06] MEDS ORDERED: DEXTROSE 50% 50 ML SYRINGE IV PRN ×2 (14:00)
[2016-07-06] MEDS: HYDROCODONE/APAP (7.5/325) TAB PO PRN ×2 (14:59→22:44)
--- NOTE | 2016-07-06 15:20 | CONS ---
DATE OF ADMISSION: 07/05/2016 DATE OF CONSULTATION: RENAL CONSULTATION HISTORY OF PRESENT ILLNESS: This 61-year-old man is here now after developing shortness of breath a t home and being brought by paramedics to the emergency room. He apparently has been on hemodialysi s. He says for 2 years, he dialyzes normally Tuesday, , and Tuesday. I last saw this wayne ent was here in this hospital in November 2015. He was not on dialysis at that time and has since started dialysis. The patient was dialyzed here the last time, being seen by Dr. Martin. The patie nt says that he is normally dialyzed Tuesday, , and Tuesday. Apparently he has missed marybel ral dialysis treatments. He is due for dialysis today. He at this time seems fairly comfortable, a lthough he has is he a little short of breath. He speaks mostly Palauan. He has dialysis ordered for today. PAST MEDICAL HISTORY: Chronic congestive heart failure, type 2 diabetes mellitus, chronic kidney di sease stage V, now on hemodialysis, COPD, anemia of chronic disease, history of cellulitis of right foot status post distal amputations, osteomyelitis of the metatarsals, chronic pain syndrome, severe diabetic ophtho, neuro, and nephropathy, peripheral artery disease, ICD implantation, recurrent syn copal episodes, possible seizure, memory impairment, severe CAD, history of MRSA infections of the r ight foot. CURRENT MEDICATIONS: Include the followin. Cyclobenzaprine 10 mg q.6 hours. 2. Tamsulosin 0.4 mg a day. 3. Apixaban 2.5 mg every morning. 4. Aspirin 81 mg a day. 5. Atorvastatin 40 mg a day. 6. Carvedilol 12.5 mg in the morning. 7. Plavix 75 mg a day. 8. Docusate sodium 100 mg twice a week. 9. Cymbalta 60 mg a day. 10. Fenofibrate 145 mg a day. 11. Ferrous sulfate. 12. Furosemide 40 mg a day. 13. Gabapentin 300 mg 3 times a day. 14. Hydrocodone 5/325 p.r.n. pain. 15. NovoLog insulin sliding scale. 16. Lantus insulin 40 units. 17. Metoprolol 50 mg twice a day. 18. Sevelamer with each meal. 19. Tamsulosin 0.4 mg a day. 20. Ambien 10 mg at bedtime. PHYSICAL EXAMINATION: VITAL SIGNS: At this time, temperature 97.7, pulse of 87, respirations 20, blood pressure 172/77, O 2 saturation 100% on room air. HEENT: Head normocephalic. Eyes: Extraocular muscles intact. NOSE AND MOUTH: Normal. NECK: Supple. No neck vein distention. LUNGS: Diminished breath sounds bilaterally. HEART: Regular rhythm. No murmurs, gallops, or rubs. ABDOMEN: Soft, nontender. EXTREMITIES: There was some pretibial edema of both legs. IMPRESSION: This patient has chronic kidney disease. He has been on dialysis for approximately 2 y ears. He usually dialyzes Tuesday, , Tuesday. He has missed several dialyses recently. Rangel montero is due for dialysis today, which is a Tuesday. He does have evidence of congestive heart failure on his chest x-ray. PLAN: 1. I will order routine hemodialysis for him today. 2. Resume some of his routine medications. 3. Check labs in the morning. 4. I will follow the patient along with you medically. Dictated By: TABITHA COVINGTON MD, ND/CHELO Conf#: [id number] DID#: [id number]
[2016-07-06] MEDS: CYCLOBENZAPRINE 10 MG TAB PO SCH ×2 (16:43→20:00)
[2016-07-06] MEDS: INSULIN ASPART [NOVOLOG] 3 ML PEN SC SCH ×2 (17:29→22:55)
[2016-07-06] MEDS: SEVELAMER CARBONATE 0.8 GM PKT PO SCH (17:30)
--- NOTE | 2016-07-06 18:17 | CONS ---
Date/Time of Note Date/Time of Note DATE: 07/06/16 TIME: 18:17 Consultation Date/Type/Reason Admit Date/Time Jul 05, 2016 at 22:12 Initial Consult Date 07/06/16 [facility] Referring Provider: LAURA AHN MD Exam/Review of Systems Vital Signs Vitals Vital Signs Date Time Temp Pulse Resp B/P Pulse Ox O2 Delivery O2 Flow Rate FiO2 07/06/16 16:00 77 07/06/16 15:58 98.9 20 122/62 96 07/06/16 14:11 2.0 07/06/16 14:11 Nasal Cannula 07/06/16 07:32 40 Intake and Output 07/05/16 07/05/16 07/06/16 15:00 23:00 07:00 Intake Total 250 ml Output Total 550 ml Balance -300 ml Results Result Diagram: 07/05/16205407/05/162054 Results 24 hrs Laboratory Tests Test 07/05/16 20:44 07/05/16 20:55 07/06/16 01:00 07/06/16 02:45 Blood Gas Specimen Source Blood arterial Arterial Blood Date Drawn 07/05/2016 9:03:17 PM Arterial Blood pH (Temp corrected) 7.249 *L Arterial Blood pCO2 (Temp correct) 61.9 H Arterial Blood pO2 (Temp corrected) 559.4 H Arterial Blood HCO3 26.5 H Arterial Blood Base Excess -1.9 Arterial Blood Oxygen Saturation 99.6 H Vin Test ACCEPTAB Arterial Blood Gas Puncture Site Left Radial Arterial Blood Carboxyhemoglobin 0.3 Arterial Blood Methemoglobin 0.5 Blood Gas A-a O2 Differential 91.7 H Oxyhemoglobin Percent 98.8 Total Hemoglobin 13.1 Blood Gas Temperature 37.0 Blood Gas Respiration Rate 14.0 Blood Gas Actual Respiration Rate 32 Blood Gas Modality MASK - BIPAP FiO2 100.0 Blood Gas Inspiratory Time 0.6 Blood Gas IPAP/EPAP Ratio 05/09 Blood Gas Critical Value Read Back Dacia BARRY MD Blood Gas Notified Whom AA Blood Gas Notified Time 07/05/2016 9:16:16 PM White Blood Count 12.6 H Red Blood Count 4.75 # Hemoglobin 13.8 #L Hematocrit 46.0 # Mean Corpuscular Volume 96.8 Mean Corpuscular Hemoglobin 29.1 Mean Corpuscular Hemoglobin Concent 30.0 L Red Cell Distribution Width 13.5 # Platelet Count 225 Mean Platelet Volume 11.2 #H Neutrophils % 60.5 Lymphocytes % 29.9 Monocytes % 4.0 Eosinophils % 4.3 Basophils % 0.8 Nucleated Red Blood Cells % 0.0 Neutrophils # 7.6 H Lymphocytes # 3.8 H Monocytes # 0.5 Eosinophils # 0.5 Basophils # 0.1 Nucleated Red Blood Cells # 0.0 Prothrombin Time 12.9 Prothrombin Time Ratio 1.0 INR International Normalized Ratio 0.97 Activated Partial Thromboplast Time 37.3 H Sodium Level 145 H Potassium Level 4.9 Chloride Level 102 Carbon Dioxide Level 27 Anion Gap 21 H Blood Urea Nitrogen 40 H Creatinine 2.00 H Glucose Level 288 H Calcium Level 9.6 Troponin I 0.141 *H 0.124 *H B-Type Natriuretic Peptide 3190 H Bedside Glucose 238 H Creatine Kinase 82 Creatine Kinase Index 4.1 Creatinine Kinase MB (Mass) 3.34 H Test 07/06/16 05:22 07/06/16 10:18 07/06/16 11:20 07/06/16 17:13 Iron Level 30 L Total Iron Binding Capacity 280 Percent Iron Saturation 11 L Troponin I 0.116 0.116 Thyroid Stimulating Hormone (TSH) 1.540 Bedside Glucose 198 215 Creatine Kinase 88 Creatine Kinase Index 3.3 Creatinine Kinase MB (Mass) 2.89 H Medications Medications Current Medications Ondansetron HCl (Zofran Inj) 4 mg Q6 PRN IV NAUSEA AND/OR VOMITING; Start 07/06 at 00:00 Clopidogrel Bisulfate (plaVIX) 75 mg DAILY PO Last administered on 07/06/16 13 :41; Admin Dose 75 MG; Start 07/06/16 at 13:00 Furosemide (Lasix) 40 mg DAILY IV Last administered on 07/06/16t 13:42; Admin Dose 40 MG; Start 07/06/16 at 13:00 Diagnostic Test (Pha) (Accu-Chek) 1 ea 02 XX ; Start 07/07/16 at 02:00 Diagnostic Test (Pha) (Accu-Chek) 1 ea 02 XX ; Start 07/07/16 at 02:00 Miscellaneous Information 1 ea NOTE XX ; Start 07/06/16 at 14:00 Glucose (Glutose) 15 gm Q15M PRN PO DECREASED GLUCOSE; Start 07/06/16 at 14:00 Glucose (Glutose) 22.5 gm Q15M PRN PO DECREASED GLUCOSE; Start 07/06/16 at 14: 00 Dextrose (D50w Syringe) 25 ml Q15M PRN IV DECREASED GLUCOSE; Start 07/06/16 at 14:00 Dextrose (D50w Syringe) 50 ml Q15M PRN IV DECREASED GLUCOSE; Start 07/06/16 at 14:00 Glucagon (Glucagen) 1 mg Q15M PRN IM DECREASED GLUCOSE; Start 07/06/16 at 14:00 Glucose (Glutose) 15 gm Q15M PRN BUCCAL DECREASED GLUCOSE; Start 07/06/16 at 14 :00 Aspirin (Aspirin) 81 mg DAILY PO ; Start 07/07/16 at 09:00 Atorvastatin Calcium (Lipitor) 40 mg QHS PO ; Start 07/06/16 at 21:00 Cyclobenzaprine HCl (Flexeril) 10 mg Q6H PO Last administered on 07/06/16 16: 43; Admin Dose 10 MG; Start 07/06/16 at 14:00 Docusate Sodium (Colace) 100 mg BID PO ; Start 07/06/16 at 21:00 Duloxetine HCl (Cymbalta) 60 mg DAILY PO ; Start 07/07/16 at 09:00 Fenofibrate (Tricor) 145 mg DAILY PO ; Start 07/07/16 at 09:00 Gabapentin (Neurontin) 300 mg TID PO ; Start 07/06/16 at 21:00 Tamsulosin HCl (Flomax) 0.4 mg HS PO ; Start 07/06/16 at 21:00 Acetaminophen/ Hydrocodone Bitart ([place] (7.5-325)) 1 tab Q6H PRN PO PAIN LEVEL 6-10 Last administered on 07/06/16 14:59; Admin Dose 1 TAB; Start at 15:00 Carvedilol (Coreg) 6.25 mg BID PO ; Start 07/06/16 at 21:00 EMILIANA ALMANZA MD Jul 06, 2016 18:17
--- NOTE | 2016-07-06 20:51 | RADRPT ---
Echocardiogram Report Patient Name: SYLVIA QUINONES Gender: Male Date: 1955 Study Date: 06-Jul-2016 Retail Custodial Associate: Tashi Perez [facility] Location: [id number] Ref. Physician: KYA LYNNE Quality: Technically Difficult Study Procedures: Transthoracic echocardiogram with complete 2D, M-Mode, and doppler examination. Indications: ICMP. 2D/M Mode Doppler Measurement Value Normal Ranges Measurement Value Normal Ranges LVIDd 2D 5.6 3.5 - 5.6 cm AV Peak [place] 1.2 m/sec LVIDs 2D 4.9 2.1 - 4.1 cm AV Peak PG 5.7 mmHg LVPWd 2D 1.2 0.6 - 1.1 cm LVOT Peak [place] 0.6 m/sec IVSd 2D 1.1 0.6 - 1.1 cm LVOT Peak PG 1.5 mmHg AoR Diam 2D 2.6 2.0 - 3.7 cm EDV 2D 151.9 cm3 ESV 2D 115.0 cm3 LA Dimen 2D 4.1 2.3 - 4.0 cm Findings Left Ventricle: Lower limits of normal systolic function. Mild concentric left ventricular hypertrophy. Ejection fraction is visually estimated at 5055 %. Right Ventricle: Normal right ventricular size. Normal right ventricular systolic function. Pacemaker right heart. Left Atrium: There is mild enlargement of left atrium. Right Atrium: The right atrium is normal in size. Mitral Valve: Mitral valve leaflets appear mildly thickened. Mild mitral annular calcification. Mild mitral valve regurgitation. Aortic Valve: Normal appearance of the aortic valve. No significant aortic stenosis or insufficiency. Tricuspid Valve: Normal appearance of the tricuspid valve. Unable to obtain RVSP due to minimal presence of tricuspid regurgitation. Pulmonic Valve: Pulmonic valve not well visualized. Pericardium: Trivial pericardial effusion. Aorta: Normal aortic root. IVC: Dilated IVC with respiratory collapse consistent with elevated right atrial pressure. Conclusions Lower limits of normal systolic function. Mild concentric left ventricular hypertrophy. Ejection fraction is visually estimated at 5055 %. Mitral valve leaflets appear mildly thickened. Mild mitral annular calcification. Mild mitral valve regurgitation. Normal appearance of the aortic valve. No significant aortic stenosis or insufficiency. Normal appearance of the tricuspid valve. Unable to obtain RVSP due to minimal presence of tricuspid regurgitation. Electronically Signed By: Kya Lynne 06-Jul-2016 20:51:11 -0700 Patient Name: SYLVIA QUINONES Study Date: 06-Jul-2016 [id number]
[2016-07-06] MEDS ORDERED: ATORVASTATIN 40 MG TAB PO SCH (21:00)
[2016-07-06] MEDS ORDERED: TAMSULOSIN (SR) 0.4 MG CAP PO SCH (21:00)
[2016-07-06] MEDS: GABAPENTIN 300 MG CAP PO SCH (22:38)
[2016-07-06] MEDS: DOCUSATE SODIUM 100 MG CAP PO SCH (22:39)
[2016-07-07] VITALS (11 sets, daily range): BP systolic 101–124; BP diastolic 44–60; PULSE 65–98; RESP 16–18
[2016-07-07] MEDS: ALBUTEROL 0.083% (NEB) 2.5 MG/3 ML AMP HHN SCH ×3 (01:12→13:53)
[2016-07-07] MEDS ORDERED: ACCU-CHEK XX SCH ×2 (02:00)
[2016-07-07] MEDS: CYCLOBENZAPRINE 10 MG TAB PO SCH ×3 (02:14→14:17)
[2016-07-07 08:03] LABS: ADD SCAN DIFF NO
[2016-07-07 08:04] LABS: BASOPHIL # 0.1 10^3/ul (0.0-0.1); BASOPHILS % 0.9 % (0.0-2.0); EOSINOPHILS # 0.4 10^3/ul (0.0-0.5); EOSINOPHILS % 5.2 % (0.0-7.0); HEMATOCRIT 36.6 % (42.0-52.0); HEMOGLOBIN 11.3 g/dl (14.0-18.0); LYMPHOCYTES # 1.7 10^3/ul (0.8-2.9); LYMPHOCYTES % 22.1 % (15.0-51.0); MEAN CORPUSCULAR HEMOGLOBIN 29.8 pg (29.0-33.0); MEAN CORPUSCULAR HGB CONC 30.9 g/dl (32.0-37.0); MEAN CORPUSCULAR VOLUME 96.6 fl (82.0-101.0); MEAN PLATELET VOLUME 11.4 fl (7.4-10.4); MONOCYTE # 0.5 10^3/ul (0.3-0.9); MONOCYTES % 6.4 % (0.0-11.0); NEUTROPHIL # 5.1 10^3/ul (1.6-7.5); PLATELET COUNT 176 10^3/UL (140-415); RED BLOOD COUNT 3.79 10^6/ul (4.70-6.10); RED CELL DISTRIBUTION WIDTH 13.9 % (11.5-14.5); WHITE BLOOD COUNT 7.9 10^3/ul (4.8-10.8)
[2016-07-07 08:21] LABS: IRON 55 ug/dl (35-150)
[2016-07-07 08:31] LABS: ALBUMIN 3.9 g/dl (3.3-4.9); ALBUMIN/GLOBULIN RATIO 1.39; BILIRUBIN,INDIRECT 0.3 mg/dl (0-1.1); BILIRUBIN,TOTAL 0.3 mg/dl (0.2-1.3); CALCIUM 8.7 mg/dl (8.4-10.2); CREATININE 2.14 mg/dl (0.61-1.24); MAGNESIUM 1.9 mg/dl (1.7-2.5); PHOSPHORUS 4.5 mg/dl (2.5-4.9); POTASSIUM 4.5 mmol/L (3.5-5.1); TOTAL IRON BINDING CAPACITY 274 ug/dl (241-421); TOTAL PROTEIN 6.7 g/dl (6.1-8.1)
[2016-07-07] MEDS: IPRATROPIUM (NEB) 0.5 MG/2.5 ML AMP HHN SCH ×2 (08:40→13:53)
[2016-07-07 08:44] LABS: RETICULOCYTE COUNT % 1.6 % (0.5-1.5)
[2016-07-07 08:54] LABS: THYROID STIMULATING HORMONE 1.94 MIU/L (0.465-4.680)
[2016-07-07] MEDS: SEVELAMER CARBONATE 0.8 GM PKT PO SCH ×3 (08:56→17:23)
[2016-07-07] MEDS: FUROSEMIDE 40 MG INJ IV SCH (08:57)
[2016-07-07] MEDS: DOCUSATE SODIUM 100 MG CAP PO SCH (08:58)
[2016-07-07] MEDS: GABAPENTIN 300 MG CAP PO SCH ×2 (08:59→12:12)
[2016-07-07] MEDS: CLOPIDOGREL 75 MG TAB PO SCH (08:59)
[2016-07-07] MEDS ORDERED: DULOXETINE 30 MG CAP DR PO SCH (09:00)
[2016-07-07] MEDS ORDERED: FENOFIBRATE 145 MG TAB PO SCH (09:00)
[2016-07-07] MEDS ORDERED: CLOPIDOGREL 75 MG TAB PO SCH (09:00)
[2016-07-07] MEDS ORDERED: ASPIRIN 81 MG TAB PO SCH (09:00)
[2016-07-07] MEDS: INSULIN ASPART [NOVOLOG] 3 ML PEN SC SCH ×3 (09:02→17:27)
[2016-07-07] MEDS: HYDROCODONE/APAP (7.5/325) TAB PO PRN (09:11)
[2016-07-07 09:28] LABS: FOLATE 8.1 ng/ml (2.8-20.0)
--- NOTE | 2016-07-07 12:39 | CONS ---
Date/Time of Note Date/Time of Note DATE: 07/07/16 TIME: 12:38 Consultation Date/Type/Reason Admit Date/Time Jul 05, 2016 at 22:12 Initial Consult Date 07/06/16 Type of Consultation: HEMEON Referring Provider: LAURA AHN MD 24 HR Interval Summary Free Text/Dictation ALL NOTED W-UP IN PROGRESS NO BLEEDING NO HEMOLYSIS Exam/Review of Systems Vital Signs Vitals Vital Signs Date Time Temp Pulse Resp B/P Pulse Ox O2 Delivery O2 Flow Rate FiO2 07/07/16 12:00 65 07/07/16 11:55 97.9 16 124/60 97 07/07/16 08:56 Nasal Cannula 2.0 07/07/16 01:15 21 Intake and Output 07/06/16 07/06/16 07/07/16 15:00 23:00 07:00 Intake Total 1100 ml Output Total 3200 ml Balance -2100 ml Exam HEENT: Head normocephalic. Eyes: Extraocular muscles intact. NOSE AND MOUTH: Normal. NECK: Supple. No neck vein distention. LUNGS: Diminished breath sounds bilaterally. HEART: Regular rhythm. No murmurs, gallops, or rubs. ABDOMEN: Soft, nontender. EXTREMITIES: There was some pretibial edema of both legs. Results Result Diagram: 07/07/16 0720 07/07/16 0720 Results 24 hrs Laboratory Tests Test 07/06/16 17:13 07/06/16 22:49 07/07/16 02:19 07/07/16 07:20 Bedside Glucose 215 257 H 224 H White Blood Count 7.9 # Red Blood Count 3.79 #L Hemoglobin 11.3 L Hematocrit 36.6 #L Mean Corpuscular Volume 96.6 Mean Corpuscular Hemoglobin 29.8 Mean Corpuscular Hemoglobin Concent 30.9 L Red Cell Distribution Width 13.9 Platelet Count 176 # Mean Platelet Volume 11.4 H Neutrophils % 65.0 Lymphocytes % 22.1 Monocytes % 6.4 Eosinophils % 5.2 Basophils % 0.9 Nucleated Red Blood Cells % 0.0 Neutrophils # 5.1 Lymphocytes # 1.7 Monocytes # 0.5 Eosinophils # 0.4 Basophils # 0.1 Nucleated Red Blood Cells # 0.0 Erythrocyte Sedimentation Rate 60 H Absolute Reticulocyte Count 0.060 Percent Reticulocyte Count 1.6 H Sodium Level 139 Potassium Level 4.5 Chloride Level 101 Carbon Dioxide Level 29 Anion Gap 14 # Blood Urea Nitrogen 34 H Creatinine 2.14 H Glucose Level 201 Calcium Level 8.7 Phosphorus Level 4.5 Magnesium Level 1.9 Iron Level 55 # Total Iron Binding Capacity 274 Percent Iron Saturation 20 L Ferritin 489.0 H Total Bilirubin 0.3 Direct Bilirubin 0.00 Indirect Bilirubin 0.3 Aspartate Amino Transf (AST/SGOT) 25 Alanine Aminotransferase (ALT/SGPT) 32 Alkaline Phosphatase 118 Lactate Dehydrogenase 466 Total Protein 6.7 Albumin 3.9 Globulin 2.80 Albumin/Globulin Ratio 1.39 Vitamin B12 Level 438 Folate 8.1 Thyroid Stimulating Hormone (TSH) 1.940 Test 07/07/16 08:31 07/07/16 11:21 Bedside Glucose 166 260 H Medications Medications Current Medications Ondansetron HCl (Zofran Inj) 4 mg Q6 PRN IV NAUSEA AND/OR VOMITING; Start 07/06 at 00:00 Clopidogrel Bisulfate (plaVIX) 75 mg DAILY PO Last administered on 07/07/16 08 :59; Admin Dose 75 MG; Start 07/06/16 at 13:00 Furosemide (Lasix) 40 mg DAILY IV Last administered on 07/07/16 08:57; Admin Dose 40 MG; Start 07/06/16 at 13:00 Diagnostic Test (Pha) (Accu-Chek) 1 ea 02 XX ; Start 07/07/16 at 02:00 Diagnostic Test (Pha) (Accu-Chek) 1 ea 02 XX ; Start 07/07/16 at 02:00 Miscellaneous Information 1 ea NOTE XX ; Start 07/06/16 at 14:00 Glucose (Glutose) 15 gm Q15M PRN PO DECREASED GLUCOSE; Start 07/06/16 at 14:00 Glucose (Glutose) 22.5 gm Q15M PRN PO DECREASED GLUCOSE; Start 07/06/16 at 14: 00 Dextrose (D50w Syringe) 25 ml Q15M PRN IV DECREASED GLUCOSE; Start 07/06/16 at 14:00 Dextrose (D50w Syringe) 50 ml Q15M PRN IV DECREASED GLUCOSE; Start 07/06/16 at 14:00 Glucagon (Glucagen) 1 mg Q15M PRN IM DECREASED GLUCOSE; Start 07/06/16 at 14:00 Glucose (Glutose) 15 gm Q15M PRN BUCCAL DECREASED GLUCOSE; Start 07/06/16 at 14 :00 Aspirin (Aspirin) 81 mg DAILY PO Last administered on 07/07/16 08:58; Admin Dose 81 MG; Start 07/07/16 at 09:00 Atorvastatin Calcium (Lipitor) 40 mg QHS PO Last administered on 07/06/16 22: 38; Admin Dose 40 MG; Start 07/06/16 at 21:00 Cyclobenzaprine HCl (Flexeril) 10 mg Q6H PO Last administered on 07/07/16 08: 56; Admin Dose 10 MG; Start 07/06/16 at 14:00 Docusate Sodium (Colace) 100 mg BID PO Last administered on 07/07/16 08:58; Admin Dose 100 MG; Start 07/06/16 at 21:00 Duloxetine HCl (Cymbalta) 60 mg DAILY PO Last administered on 07/07/16 08:59; Admin Dose 60 MG; Start 07/07/16 at 09:00 Fenofibrate (Tricor) 145 mg DAILY PO Last administered on 07/07/16 08:59; Admin Dose 145 MG; Start 07/07/16 at 09:00 Gabapentin (Neurontin) 300 mg TID PO Last administered on 07/07/16 12:12; Admin Dose 300 MG; Start 07/06/16 at 21:00 Tamsulosin HCl (Flomax) 0.4 mg HS PO Last administered on 07/06/16 22:39; Admin Dose 0.4 MG; Start 07/06/16 at 21:00 Acetaminophen/ Hydrocodone Bitart ([place] (7.5-325)) 1 tab Q6H PRN PO PAIN LEVEL 6-10 Last administered on 07/07/16 09:11; Admin Dose 1 TAB; Start at 15:00 Carvedilol (Coreg) 6.25 mg BID PO Last administered on 07/07/16 08:58; Admin Dose 6.25 MG; Start 07/06/16 at 21:00 EMILIANA ALMANZA MD Jul 07, 2016 12:39
--- NOTE | 2016-07-07 14:27 | CONS ---
Date/Time of Note Date/Time of Note DATE: 07/07/16 TIME: 14:22 Assessment/Plan Assessment/Plan Chief Complaint/Hosp Course 1. ESRD he was dialyzed yesterday and is due for dialysis tomorrow . He may go home today [place] told him to go to his out patient dialysis unit tomorrow . 2. CHF 3. DM 4. COPD 5. anemia of chronic disease 6. PAD 7. CAD Problems: Consultation Date/Type/Reason Admit Date/Time Jul 07, 2016 at 11:53 Initial Consult Date 07/06/16 [facility] Referring Provider: LAURA AHN MD 24 HR Interval Summary Free Text/Dictation Patient is feeling better . Constitutional: improved, no complaints Exam/Review of Systems Vital Signs Vitals Vital Signs Date Time Temp Pulse Resp B/P Pulse Ox O2 Delivery O2 Flow Rate FiO2 07/07/16 14:03 2.0 07/07/16 13:53 73 20 83 21 07/07/16 11:55 97.9 124/60 07/07/16 08:56 Nasal Cannula Intake and Output 07/06/16 07/06/16 07/07/16 15:00 23:00 07:00 Intake Total 1100 ml Output Total 3200 ml Balance -2100 ml Exam Constitutional: alert, obese, oriented Respiratory: clear to auscultation, normal air movement Cardiovascular: regular rate and rhythm Gastrointestinal: soft Musculoskeletal: nl extremities to inspection Results Result Diagram: 07/07/16 0720 07/07/16 0720 Results 24 hrs Laboratory Tests Test 07/06/16 17:13 07/06/16 22:49 07/07/16 02:19 07/07/16 07:20 Bedside Glucose 215 257 H 224 H White Blood Count 7.9 # Red Blood Count 3.79 #L Hemoglobin 11.3 L Hematocrit 36.6 #L Mean Corpuscular Volume 96.6 Mean Corpuscular Hemoglobin 29.8 Mean Corpuscular Hemoglobin Concent 30.9 L Red Cell Distribution Width 13.9 Platelet Count 176 # Mean Platelet Volume 11.4 H Neutrophils % 65.0 Lymphocytes % 22.1 Monocytes % 6.4 Eosinophils % 5.2 Basophils % 0.9 Nucleated Red Blood Cells % 0.0 Neutrophils # 5.1 Lymphocytes # 1.7 Monocytes # 0.5 Eosinophils # 0.4 Basophils # 0.1 Nucleated Red Blood Cells # 0.0 Erythrocyte Sedimentation Rate 60 H Absolute Reticulocyte Count 0.060 Percent Reticulocyte Count 1.6 H Sodium Level 139 Potassium Level 4.5 Chloride Level 101 Carbon Dioxide Level 29 Anion Gap 14 # Blood Urea Nitrogen 34 H Creatinine 2.14 H Glucose Level 201 Calcium Level 8.7 Phosphorus Level 4.5 Magnesium Level 1.9 Iron Level 55 # Total Iron Binding Capacity 274 Percent Iron Saturation 20 L Ferritin 489.0 H Total Bilirubin 0.3 Direct Bilirubin 0.00 Indirect Bilirubin 0.3 Aspartate Amino Transf (AST/SGOT) 25 Alanine Aminotransferase (ALT/SGPT) 32 Alkaline Phosphatase 118 Lactate Dehydrogenase 466 Total Protein 6.7 Albumin 3.9 Globulin 2.80 Albumin/Globulin Ratio 1.39 Vitamin B12 Level 438 Folate 8.1 Thyroid Stimulating Hormone (TSH) 1.940 Test 07/07/16 08:31 07/07/16 11:21 Bedside Glucose 166 260 H Medications Medications Current Medications Ondansetron HCl (Zofran Inj) 4 mg Q6 PRN IV NAUSEA AND/OR VOMITING; Start 07/06 at 00:00 Clopidogrel Bisulfate (plaVIX) 75 mg DAILY PO Last administered on 07/07/16 08 :59; Admin Dose 75 MG; Start 07/06/16 at 13:00 Furosemide (Lasix) 40 mg DAILY IV Last administered on 07/07/16 08:57; Admin Dose 40 MG; Start 07/06/16 at 13:00 Diagnostic Test (Pha) (Accu-Chek) 1 ea 02 XX ; Start 07/07/16 at 02:00 Diagnostic Test (Pha) (Accu-Chek) 1 ea 02 XX ; Start 07/07/16 at 02:00 Miscellaneous Information 1 ea NOTE XX ; Start 07/06/16 at 14:00 Glucose (Glutose) 15 gm Q15M PRN PO DECREASED GLUCOSE; Start 07/06/16 at 14:00 Glucose (Glutose) 22.5 gm Q15M PRN PO DECREASED GLUCOSE; Start 07/06/16 at 14: 00 Dextrose (D50w Syringe) 25 ml Q15M PRN IV DECREASED GLUCOSE; Start 07/06/16 at 14:00 Dextrose (D50w Syringe) 50 ml Q15M PRN IV DECREASED GLUCOSE; Start 07/06/16 at 14:00 Glucagon (Glucagen) 1 mg Q15M PRN IM DECREASED GLUCOSE; Start 07/06/16 at 14:00 Glucose (Glutose) 15 gm Q15M PRN BUCCAL DECREASED GLUCOSE; Start 07/06/16 at 14 :00 Aspirin (Aspirin) 81 mg DAILY PO Last administered on 07/07/16 08:58; Admin Dose 81 MG; Start 07/07/16 at 09:00 Atorvastatin Calcium (Lipitor) 40 mg QHS PO Last administered on 07/06/16 22: 38; Admin Dose 40 MG; Start 07/06/16 at 21:00 Cyclobenzaprine HCl (Flexeril) 10 mg Q6H PO Last administered on 07/07/16 08: 56; Admin Dose 10 MG; Start 07/06/16 at 14:00 Docusate Sodium (Colace) 100 mg BID PO Last administered on 07/07/16 08:58; Admin Dose 100 MG; Start 07/06/16 at 21:00 Duloxetine HCl (Cymbalta) 60 mg DAILY PO Last administered on 07/07/16 08:59; Admin Dose 60 MG; Start 07/07/16 at 09:00 Fenofibrate (Tricor) 145 mg DAILY PO Last administered on 07/07/16 08:59; Admin Dose 145 MG; Start 07/07/16 at 09:00 Gabapentin (Neurontin) 300 mg TID PO Last administered on 07/07/16 12:12; Admin Dose 300 MG; Start 07/06/16 at 21:00 Tamsulosin HCl (Flomax) 0.4 mg HS PO Last administered on 07/06/16 22:39; Admin Dose 0.4 MG; Start 07/06/16 at 21:00 Acetaminophen/ Hydrocodone Bitart ([place] (7.5-325)) 1 tab Q6H PRN PO PAIN LEVEL 6-10 Last administered on 07/07/16 09:11; Admin Dose 1 TAB; Start at 15:00 Carvedilol (Coreg) 6.25 mg BID PO Last administered on 07/07/16 08:58; Admin Dose 6.25 MG; Start 07/06/16 at 21:00 TABITHA COVINGTON MD Jul 07, 2016 14:27
--- NOTE | 2016-07-07 20:30 | CONS ---
Date/Time of Note Date/Time of Note DATE: 07/07/16 TIME: 20:29 Consult Date/Type/Reason Admit Date/Time Jul 07, 2016 at 11:53 Initial Consult Date 07/06/16 Type of Consultation: Card and Vasc Int Ordering Provider: LAURA AHN MD Objective Vital Signs Date Time Temp Pulse Resp B/P Pulse Ox O2 Delivery O2 Flow Rate FiO2 07/07/16 16:12 97.9 74 16 124/56 97 07/07/16 14:03 2.0 07/07/16 13:53 21 07/07/16 08:56 Nasal Cannula Intake and Output 07/06/16 07/06/16 07/07/16 15:00 23:00 07:00 Intake Total 1100 ml Output Total 3200 ml Balance -2100 ml Results/Medications Result Diagram: 07/07/16 0720 07/07/1620 Results 24 hrs Laboratory Tests Test 07/06/16 22:49 07/07/16 02:19 07/07/16 07:20 07/07/16 08:31 Bedside Glucose 257 H 224 H 166 White Blood Count 7.9 # Red Blood Count 3.79 #L Hemoglobin 11.3 L Hematocrit 36.6 #L Mean Corpuscular Volume 96.6 Mean Corpuscular Hemoglobin 29.8 Mean Corpuscular Hemoglobin Concent 30.9 L Red Cell Distribution Width 13.9 Platelet Count 176 # Mean Platelet Volume 11.4 H Neutrophils % 65.0 Lymphocytes % 22.1 Monocytes % 6.4 Eosinophils % 5.2 Basophils % 0.9 Nucleated Red Blood Cells % 0.0 Neutrophils # 5.1 Lymphocytes # 1.7 Monocytes # 0.5 Eosinophils # 0.4 Basophils # 0.1 Nucleated Red Blood Cells # 0.0 Erythrocyte Sedimentation Rate 60 H Absolute Reticulocyte Count 0.060 Percent Reticulocyte Count 1.6 H Sodium Level 139 Potassium Level 4.5 Chloride Level 101 Carbon Dioxide Level 29 Anion Gap 14 # Blood Urea Nitrogen 34 H Creatinine 2.14 H Glucose Level 201 Calcium Level 8.7 Phosphorus Level 4.5 Magnesium Level 1.9 Iron Level 55 # Total Iron Binding Capacity 274 Percent Iron Saturation 20 L Ferritin 489.0 H Total Bilirubin 0.3 Direct Bilirubin 0.00 Indirect Bilirubin 0.3 Aspartate Amino Transf (AST/SGOT) 25 Alanine Aminotransferase (ALT/SGPT) 32 Alkaline Phosphatase 118 Lactate Dehydrogenase 466 Total Protein 6.7 Albumin 3.9 Globulin 2.80 Albumin/Globulin Ratio 1.39 Vitamin B12 Level 438 Folate 8.1 Thyroid Stimulating Hormone (TSH) 1.940 Test 07/07/16 11:21 07/07/16 17:22 Bedside Glucose 260 H 191 Medications Current Medications Ondansetron HCl (Zofran Inj) 4 mg Q6 PRN IV NAUSEA AND/OR VOMITING; Start 07/06 at 00:00 Clopidogrel Bisulfate (plaVIX) 75 mg DAILY PO Last administered on 07/07/16 08 :59; Admin Dose 75 MG; Start 07/06/16 at 13:00 Furosemide (Lasix) 40 mg DAILY IV Last administered on 07/07/16 08:57; Admin Dose 40 MG; Start 07/06/16 at 13:00 Diagnostic Test (Pha) (Accu-Chek) 1 ea 02 XX ; Start 07/07/16 at 02:00 Diagnostic Test (Pha) (Accu-Chek) 1 ea 02 XX ; Start 07/07/16 at 02:00 Miscellaneous Information 1 ea NOTE XX ; Start 07/06/16 at 14:00 Glucose (Glutose) 15 gm Q15M PRN PO DECREASED GLUCOSE; Start 07/06/16 at 14:00 Glucose (Glutose) 22.5 gm Q15M PRN PO DECREASED GLUCOSE; Start 07/06/16 at 14: 00 Dextrose (D50w Syringe) 25 ml Q15M PRN IV DECREASED GLUCOSE; Start 07/06/16 at 14:00 Dextrose (D50w Syringe) 50 ml Q15M PRN IV DECREASED GLUCOSE; Start 07/06/16 at 14:00 Glucagon (Glucagen) 1 mg Q15M PRN IM DECREASED GLUCOSE; Start 07/06/16 at 14:00 Glucose (Glutose) 15 gm Q15M PRN BUCCAL DECREASED GLUCOSE; Start 07/06/16 at 14 :00 Aspirin (Aspirin) 81 mg DAILY PO Last administered on 07/07/16 08:58; Admin Dose 81 MG; Start 07/07/16 at 09:00 Atorvastatin Calcium (Lipitor) 40 mg QHS PO Last administered on 07/06/16 22: 38; Admin Dose 40 MG; Start 07/06/16 at 21:00 Cyclobenzaprine HCl (Flexeril) 10 mg Q6H PO Last administered on 07/07/16 14: 17; Admin Dose 10 MG; Start 07/06/16 at 14:00 Docusate Sodium (Colace) 100 mg BID PO Last administered on 07/07/16 08:58; Admin Dose 100 MG; Start 07/06/16 at 21:00 Duloxetine HCl (Cymbalta) 60 mg DAILY PO Last administered on 07/07/16 08:59; Admin Dose 60 MG; Start 07/07/16 at 09:00 Fenofibrate (Tricor) 145 mg DAILY PO Last administered on 07/07/16 08:59; Admin Dose 145 MG; Start 07/07/16 at 09:00 Gabapentin (Neurontin) 300 mg TID PO Last administered on 07/07/16 12:12; Admin Dose 300 MG; Start 07/06/16 at 21:00 Tamsulosin HCl (Flomax) 0.4 mg HS PO Last administered on 07/06/16 22:39; Admin Dose 0.4 MG; Start 07/06/16 at 21:00 Acetaminophen/ Hydrocodone Bitart ([place] (7.5-325)) 1 tab Q6H PRN PO PAIN LEVEL 6-10 Last administered on 07/07/16 09:11; Admin Dose 1 TAB; Start at 15:00 Carvedilol (Coreg) 6.25 mg BID PO Last administered on 07/07/16 08:58; Admin Dose 6.25 MG; Start 07/06/16 at 21:00 Assessment/Plan Chief Complaint/Hosp Course Patient is 61 year old male with pMH of severe PAD and wound ICMP, HTn, VT cardiac arrest came in with SOB and acute on chronic systolic HF with elevated trp and BNP Problems: Additional Assessment/Plan Called in by Dr Barney for severe PAD pt has severe PAD with HAND PACKAGER of Left SFA complete occlusion. may consider revascularization. JENIFER ULRICH MD Jul 07, 2016 20:30
--- NOTE | 2016-07-07 23:05 | DS ---
Date/Time of Note Date/Time of Note DATE: 07/07/16 TIME: 22:38 Discharge Summary Admission/Discharge Info Admit Date/Time Jul 07, 2016 at 11:53 Discharge Date/Time 07-07-2016 Final Diagnosis 1.CHF exacerbation,syst.and diastolic with pulmonary edema due to of fluid overload-improving after HD and lasix.Plan outpatient HD in HD center as per Dr. Busby. 2.DM type 2 3.COPD 4.CKD stage 5,missed 2 dialyses;may be 3;noncompliance with heavy pepsy and cola use particularly last 3 days,s/p travel to [facility] last 5 days in a car.Took more than usual lasix with increased urine output but unable to wait until the next HD.Admitted in respiratory distress with hypercarbia, improving on BIPAP with nebulizing treatment. 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 Swelling of the foot with d/c and pain. 7.Osteomyelitis of the metatarsal(Hx ) and possible new one 8.Pain syndrome 9.Severe diabetic ophthalmo-neuro and nephropathy 10. Severe PAD 11.S/P ICD implantation 12.S/P recurrent syncopal apisodes, clinical deaths, resuscitations, intubation, mechanical ventilation and successful extubation 13. Hx of possible seizure d/o 14.MD and memory impairment, anxiety 15.Inability to control eating impulses 16.S/P multiple vascular procedures. 17.Increased appetite 18.Severe CAD 19.Memory impairment 20.C02 retention with current Pc02 50s. No BIPAP for now. 21.Multiorgan failure. 22.More irrational thinking and abnormal behavior. 23.Recurrent syncopal vs vent.fib. vs cardiac arrest vs seizure episodes, possible al of them with multiple intubations and Mechanical ventilation prior to ICD implantation. 24.Multiple hospitalizations 25.Hx of MRSA infections of the food and positive culture from blood.Hx of Vancomycin use at home and in hospital settings. Patient Condition: Serious Consults Dr.De Iban Pittman Procedures HD. Hospital Course 1. ESRD he was dialyzed yesterday and is due for dialysis tomorrow . He may go home today [place] told him to go to his out patient dialysis unit tomorrow . 2. CHF 3. DM 4. COPD 5. anemia of chronic disease 6. PAD 7. CAD Home Meds Active Scripts Insulin Glargine* (Lantus*) 100 Unit/Ml Soln, 40 UNIT SC QHS, #1 VIAL Prov:LAURA AHN MD 07/05/16 Insulin Degludec (Tresiba Flextouch U-100) 100 Unit/1 Ml Insuln.pen, 40 UNIT SQ QHS for 10 Days, #10 BOTTLE Prov:LAURA AHN MD 07/05/16 Insulin Aspart* (Novolog Insulin Pen*) 100 Unit/Ml Soln, 10 UNIT SC WITH MEALS for 10 Days, EA Prov:LAURA AHN MD 07/05/16 Sitagliptin* (Januvia*) 100 Mg Tablet, 100 MG PO DAILY, #30 TAB Prov:LAURA AHN MD 07/05/16 Sevelamer Carbonate* (Renvela*) 800 Mg Tablet, 0.8 GM PO WITH MEALS for 10 Days , #10 TAB Prov:LAURA AHN MD 07/05/16 Metoprolol Tartrate* (Lopressor*) 50 Mg Tab, 50 MG PO DAILY, #60 TAB Prov:LAURA AHN MD 07/05/16 Aspirin* (Aspirin* Chew) 81 Mg Tab.chew, 81 MG PO DAILY for 10 Days, #10 TAB.CHEW Prov:LAURA AHN MD 07/05/16 Apixaban* (Eliquis*) 2.5 Mg Tablet, 2.5 MG PO QAM for 10 Days, #10 TAB Prov:LAURA AHN MD 07/05/16 Gabapentin* (Gabapentin*) 300 Mg Capsule, 300 MG PO TID, #90 CAP Prov:LAURA AHN MD 07/05/16 Furosemide* (Furosemide*) 40 Mg Tablet, 40 MG PO DAILY for 10 Days, #10 TAB Prov:LAURA AHN MD 07/05/16 Ferrous Sulfate* (Ferrous Sulfate*) 325 Mg Tabec, 325 MG PO TID for 10 Days, # 20 TAB Prov:LAURA AHN MD 07/05/16 Esomeprazole Mag Trihydrate (Nexium) 40 Mg Capsule.dr, 40 MG PO DAILY, #30 CAP Prov:LAURA AHN MD 07/05/16 Docusate Sodium* (Docusate Sodium*) 100 Mg Capsule, 100 MG PO TWICE A WEEK, #60 CAP Prov:LAURA AHN MD 07/05/16 Cyclobenzaprine Hcl* (Cyclobenzaprine Hcl*) 10 Mg Tablet, 10 MG PO Q6H, #90 TAB Prov:LAURA AHN MD 07/05/16 Fenofibrate Nanocrystallized* (Fenofibrate*) 145 Mg Tablet, 145 MG PO DAILY, #30 Prov:LAURA AHN MD 07/05/16 Clopidogrel Bisulfate (Clopidogrel) 75 Mg Tablet, 75 MG PO DAILY, #30 Prov:LAURA AHN MD 07/05/16 Duloxetine Hcl* (Cymbalta*) 60 Mg Capsule., 60 MG PO DAILY for 10 Days, #10 CAP Prov:LAURA AHN MD 07/05/16 Atorvastatin* (Atorvastatin*) 40 Mg Tablet, 40 MG PO QHS, #30 TAB Prov:LAURA AHN MD 07/05/16 Zolpidem Tartrate* (Ambien*) 10 Mg Tablet, 10 MG PO QHS Y for INSOMNIA for 10 Days, #10 TAB Prov:LAURA AHN MD 07/05/16 Reported Medications Hydrocodone/Acetaminophen ([place] 5-325 Tablet) 1 Each Tablet, 1 EACH PO Q6H, TAB 07/05/16 Dexlansoprazole (Dexilant) 60 Mg Cap., 60 MG PO DAILY, #30 CAP 09/27/15 Carvedilol* (Carvedilol*) 12.5 Mg Tablet, 12.5 MG PO QAM, #60 TAB 09/27/15 Tamsulosin Hcl* (Tamsulosin Hcl*) 0.4 Mg Cap.er.24h, 0.4 MG PO HS, CAP 07/28/15 Discontinued Reported Medications Insulin Glargine* (Lantus*) 100 Unit/Ml Soln, 20 UNIT SC QAM, #1 VIAL 07/05/16 Icosapent Ethyl (VASCEPA) 1 Gm Capsule, 1 GM PO BID, CAP 12/02/15 Amitriptyline Hcl* (Amitriptyline Hcl*) 50 Mg Tablet, 50 MG PO QHS, #30 TAB 12/02/15 Hydrocodone Bit-Acetaminophen* (Hydrocodone-APAP*) 10-325 Tablet, 1 TAB PO BID Y for PAIN, TAB 09/27/15 Insulin Degludec (Tresiba Flextouch U-200) 200 Unit/1 Ml Insuln.pen, 40 UNITS SC QHS, #15 07/28/15 Midodrine* (Midodrine*) 5 Mg Tablet, 5 MG PO TID, #90 07/28/15 Hydralazine Hcl* (Hydralazine Hcl*) 50 Mg Tab, 50 MG PO Q8, #90 TAB 07/28/15 Clonidine Hcl* (Clonidine Hcl*) 0.1 Mg Tab, 0.1 MG PO BID Y for ELEVATED BLOOD PRESSURE, TAB 07/28/15 Metoprolol Succinate* (Toprol XL*) 50 Mg Tab.er.24h, 50 MG PO DAILY, #30 TAB 07/28/15 Discontinued Scripts Albuterol Sulfate* (Proair HFA*) 8.5 Gm Hfa.aer.ad, 2 PUFF INH Q4H Y for WHEEZING AND SOB, #1 INHALER Prov:JESE RIVERO MD 04/17/16 Ondansetron Hcl* (Zofran*) 4 Mg Tablet, 4 MG PO Q8H Y for NAUSEA AND/OR VOMITING , #10 TAB Prov:MARCEL MONTGOMERY DO 12/02/15 Follow-up Plan in one day to HD clinic. To in 5 days. Pending Labs Laboratory Tests Test 07/06/16 22:49 07/07/16 02:19 07/07/16 07:20 07/07/16 08:31 Bedside Glucose 257mg/dL (70-220) 224mg/dL (70-220) 166mg/dL (70-220) White Blood Count 7.910^3/ul (4.8-10.8) Red Blood Count 3.7910^6/ul (4.70-6.10) Hemoglobin 11.3g/dl (14.0-18.0) Hematocrit 36.6% (42.0-52.0) Mean Corpuscular Volume 96.6fl (82.0-101.0) Mean Corpuscular Hemoglobin 29.8pg (29.0-33.0) Mean Corpuscular Hemoglobin Concent 30.9g/dl (32.0-37.0) Red Cell Distribution Width 13.9% (11.5-14.5) Platelet Count 51335^3/UL (140-415) Mean Platelet Volume 11.4fl (7.4-10.4) Neutrophils % 65.0% (39.0-77.0) Lymphocytes % 22.1% (15.0-51.0) Monocytes % 6.4% (0.0-11.0) Eosinophils % 5.2% (0.0-7.0) Basophils % 0.9% (0.0-2.0) Nucleated Red Blood Cells % 0.0/100WBC (0.0-0.0) Neutrophils # 5.110^3/ul (1.6-7.5) Lymphocytes # 1.710^3/ul (0.8-2.9) Monocytes # 0.510^3/ul (0.3-0.9) Eosinophils # 0.410^3/ul (0.0-0.5) Basophils # 0.110^3/ul (0.0-0.1) Nucleated Red Blood Cells # 0.010^3/ul (0.0-0.0) Erythrocyte Sedimentation Rate 60mm/Hr (0-20) Absolute Reticulocyte Count 0.060X10^6 (0.020-0.110) Percent Reticulocyte Count 1.6% (0.5-1.5) Sodium Level 139mmol/L (135-144) Potassium Level 4.5mmol/L (3.5-5.1) Chloride Level 101mmol/L (97-110) Carbon Dioxide Level 29mmol/L (21-31) Anion Gap 14 (8-16) Blood Urea Nitrogen 34mg/dl (7-20) Creatinine 2.14mg/dl (0.61-1.24) Glucose Level 201mg/dl (70-220) Calcium Level 8.7mg/dl (8.4-10.2) Phosphorus Level 4.5mg/dl (2.5-4.9) Magnesium Level 1.9mg/dl (1.7-2.5) Iron Level 55ug/dl (35-150) Total Iron Binding Capacity 274ug/dl (241-421) Percent Iron Saturation 20% SAT (22-52) Ferritin 489.0ng/ml (11.1-264.0) Total Bilirubin 0.3mg/dl (0.2-1.3) Direct Bilirubin 0.00mg/dl (0.00-0.20) Indirect Bilirubin 0.3mg/dl (0-1.1) Aspartate Amino Transf (AST/SGOT) 25IU/L (15-46) Alanine Aminotransferase (ALT/SGPT) 32IU/L (13-69) Alkaline Phosphatase 118IU/L (42-121) Lactate Dehydrogenase 466IU/L (313-618) Total Protein 6.7g/dl (6.1-8.1) Albumin 3.9g/dl (3.3-4.9) Globulin 2.80g/dl (1.3-3.2) Albumin/Globulin Ratio 1.39 Vitamin B12 Level 438pg/ml (239-931) Folate 8.1ng/ml (2.8-20.0) Thyroid Stimulating Hormone (TSH) 1.940MIU/L (0.465-4.680) Test 07/07/16 11:21 07/07/16 17:22 Bedside Glucose 260mg/dL (70-220) 191mg/dL (70-220) Copies To: CC: LAURA AHN MD, VAGHARSHAK MD Jul 07, 2016 23:04
== END 2016-07-07 19:50 | disposition home or self-care (01) | DRG 291 ==
LOC: E/R 20:39 → MS4 22:12 → INTOOBSV 22:12 → OBSVTOIN 07-07 11:53
PROVIDERS: ADMIT Family Medicine; ATTEND Family Medicine
PROC: 5A1D00Z (ICD-10-PCS; principal; 2016-07-06)
DX: I50.41 Acute combined systolic (congestive) and diastolic (congestive) heart failure (principal); A41.9 Sepsis, unspecified organism; R65.20 Severe sepsis without septic shock; E11.22 Type 2 diabetes mellitus with diabetic chronic kidney disease; N18.5 Chronic kidney disease, stage 5; M86.9 Osteomyelitis, unspecified; J44.1 Chronic obstructive pulmonary disease with (acute) exacerbation; R55 Syncope and collapse; I48.91 Unspecified atrial fibrillation; I13.2 Hypertensive heart and chronic kidney disease with heart failure and with stage 5 chronic kidney disease, or end stage renal disease; Z99.2 Dependence on renal dialysis; Z91.15 Patient's noncompliance with renal dialysis; D64.9 Anemia, unspecified; I73.9 Peripheral vascular disease, unspecified; N40.0 Benign prostatic hyperplasia without lower urinary tract symptoms; E66.9 Obesity, unspecified; Z68.36 Body mass index [BMI] 36.0-36.9, adult
CPT/HCPCS: 36415; 36600; 71010; 80048; 80053; 82306; 82550; 82553; 82607; 82728; 82746; 82803; 82962; 83540; 83615; 83735; 83880; 84100; 84443; 84484; 85025; 85045; 85610; 85651; 85730; 90935; 93005; 93306; 94640; 94644; 94660; 94664; 96372; 96374; G0378; J1815; J1940; J2060

== ENCOUNTER 2018-03-05 05:11 | Inpatient (IN) | END 2018-03-09 14:50 | disposition home or self-care (01) | DRG 190 ==

== ENCOUNTER 2018-05-28 00:42 | Inpatient (IN) | payer MEDICARE, OTHER ==
[~2018-05-28] VITALS: Ht 165.1 cm; Wt 107.2 kg
[2018-05-28] VITALS (58 sets, daily range): BP systolic 90–138; BP diastolic 39–57; PULSE 64–88; RESP 0–26; Ht 165.1 cm; Wt 107.2 kg
[~2018-05-28 00:42] MED LIST changes: -ALBU8.5H3 INH; -AMIT50TA3 PO; +APIX2.5T PO; +ASPI-817 PO; +ATOR-2 PO; -ATOR40TA68 PO; -CLON-379 PO; +CLOP75TA27 PO; -CLOP75TA28 PO; -CYCL-319 PO; +CYCL10TA7 PO; -DEXL60CA2 PO; +DOCU250C58 PO; +ESOM40CA PO; -FENO145T19 PO; +FENO145T37 PO; +FURO80TA3 PO; -GABA-528 PO; -HYDR-2059 PO; -HYDR-3672 PO; -ICOS1CAP PO; +INSU100I31 SQ; -INSU200I4 SC; +METO-319 PO; -METO50TA16 PO; -MIDO5TAB19 PO; +NOVO3I SC; +OMEP40CA6 PO; -ONDA4TAB8 PO; +PREG50CA PO; +SEVE800T7 PO
[2018-05-28] MEDS ORDERED: MIDAZOLAM (DRIP) 50 mg/50 mL 50 ML IV STA (01:03)
[2018-05-28] MEDS ORDERED: PROPOFOL 100 ML IV ONE (01:11)
[2018-05-28] MEDS ORDERED: IPRATROPIUM (NEB) 0.5 MG/2.5 ML AMP INH STA (01:16)
[2018-05-28] MEDS ORDERED: ALBUTEROL 0.5% (NEB) 2.5 MG/0.5 ML AMP INH STA (01:16)
[2018-05-28] MEDS ORDERED: METHYLPREDNISOLONE 125 MG INJ IV ONE (01:30)
[2018-05-28] MEDS ORDERED: FENTAnyl (DRIP) 1000 mcg/100mL 100 ML IV SCH ×2 (01:30→13:00)
[2018-05-28] MEDS ORDERED: FUROSEMIDE 40 MG INJ IV ONE (01:30)
[2018-05-28] MEDS ORDERED: FENTAnyl (DRIP) 1000 mcg/100mL 100 ML IV ONE (01:30)
[2018-05-28] MEDS ORDERED: ONDANSETRON 4 MG INJ IV PRN (01:30)
[2018-05-28] MEDS: MIDAZOLAM (DRIP) 50 mg/50 mL 50 ML IV SCH ×2 (01:40→10:26)
--- NOTE | 2018-05-28 04:14 | ERD ---
ER Documentation Chief Complaint Chief Complaint SOB, Labored, Distress. HPI 63-year-old man brought in by EMS from home for severe sudden onset shortness of breath. Patient has end-stage kidney disease and is hemodialysis dependent, he could not tell me when his last hemodialysis was, he also has poorly controlled decompensated heart failure and chronic obstructive pulmonary disease. Patient denies chest pain, no vomiting or diarrhea, no headache or blurry vision. HPI was limited as patient was dyspneic and could not speak in full sentences, he was transported here on high flow oxygen short of breath ROS All systems reviewed and are negative except as per history of present illness. Medications Home Meds Reported Medications Furosemide* (Furosemide*) 80 Mg Tablet, 80 MG PO BID, #60 TAB 04/19/18 Pregabalin* (Lyrica*) 50 Mg Capsule, 50 MG PO BID, CAP 03/05/18 Omeprazole* (Omeprazole*) 40 Mg Capsule.dr, 40 MG PO DAILY, #30 CAP 03/05/18 Zolpidem Tartrate* (Ambien*) 10 Mg Tablet, 10 MG PO QHS PRN for INSOMNIA, TAB 03/05/18 Tamsulosin Hcl* (Tamsulosin Hcl*) 0.4 Mg Cap.er.24h, 0.4 MG PO HS, CAP 03/05/18 Sevelamer Carbonate* (Renvela*) 800 Mg Tablet, 1.6 GM PO WITH MEALS, TAB 03/05/18 Metoprolol Succinate* (Toprol XL*) 50 Mg Tab.er.24h, 50 MG PO DAILY, #30 TAB 03/05/18 Insulin Degludec (Tresiba Flextouch U-100) 100 Unit/1 Ml Insuln.pen, 40 UNIT SQ QHS 03/05/18 Insulin Aspart* (Novolog Insulin Pen*) 100 Unit/Ml Soln, 12 UNIT SC WITH MEALS, EA 03/05/18 Fenofibrate Nanocrystallized* (Fenofibrate*) 145 Mg Tablet, 145 MG PO DAILY, TAB 03/05/18 Esomeprazole Mag Trihydrate (Nexium) 40 Mg Capsule.dr, 40 MG PO DAILY, #30 CAP 03/05/18 Duloxetine Hcl* (Cymbalta*) 60 Mg Capsule.dr, 60 MG PO DAILY, CAP 03/05/18 Docusate Sodium* (Colace*) 250 Mg Capsule, 250 MG PO BID, #60 CAP 03/05/18 Cyclobenzaprine Hcl* (Cyclobenzaprine Hcl*) 10 Mg Tablet, 10 MG PO Q6H, #60 TAB 03/05/18 Clopidogrel Bisulfate (Clopidogrel) 75 Mg Tablet, 75 MG PO DAILY, #30 TAB 03/05/18 Carvedilol* (Carvedilol*) 12.5 Mg Tablet, 12.5 MG PO DAILY, #60 TAB 03/05/18 Atorvastatin* (Atorvastatin*) 80 Mg Tablet, 80 MG PO QHS, #30 TAB 03/05/18 Aspirin* (Aspirin* EC) 81 Mg Tablet.dr, 81 MG PO DAILY, TAB 03/05/18 Apixaban* (Eliquis*) 2.5 Mg Tablet, 2.5 MG PO BID, TAB 03/05/18 Allergies Allergies: Coded Allergies: No Known Allergies (Unverified Allergy, Mild, 04/19/18) PMhx/Soc Systolic and diastolic CHF, end-stage kidney disease hemodialysis dependent, COPD, diabetes mellitus, anemia of chronic disease, osteomyelitis of the metatarsals status post 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 foot, ICD implantation, possible seizure disorder, anxiety, memory impairment, vascular procedures including possible vein harvest or grafting to the left lower extremity, history of CAD and OR, obesity History of Surgery: Yes (right foot partial amputation, CABG, cataract sx) Anesthesia Reaction: No Hx Neurological Disorder: No Hx Respiratory Disorders: Yes (copd) Hx Cardiac Disorders: Yes (chf, htn, high cholesterol, cad, chest pain, AICD) Hx Psychiatric Problems: Yes (anxiety, depression,) Hx Miscellaneous Medical Probl: Yes (neuropathy, PAD, CKD, anemia, ) Hx Alcohol Use: No Hx Substance Use: No Hx Tobacco Use: No FmHx Family History: diabetes Physical Exam Vitals Vital Signs Date Temp Pulse Resp B/P (MAP) Pulse Ox O2 O2 Flow FiO2 Time Delivery Rate 05/28/18 110 35 95/57 (70) 80 Room Air 01:10 05/28/18 110 35 95/57 (70) 80 01:05 Physical Exam GENERAL: Well-developed, well-nourished, dyspneic, tachypneic, afebrile, cannot speak in full sentences HEENT: Moist mucous membranes, pink conjunctiva, no cervical spine tenderness or step-off deformities NEURO: Alert and oriented 3, cranial nerves II through XII intact bilaterally, pupils equal round reactive to light, no focal deficits or facial asymmetry CARDIAC: Tachycardic and regular, no murmurs rubs or gallops LUNGS: Poor breath sounds bilaterally, crackles, wheezing ABDOMEN: Diffusely tense, protuberant abdomen, no masses palpated SKIN: Warm and dry to touch, no abrasions, contusions, or hematomas, no lacerations, no ecchymosis, no target lesions, and without ulcers EXTREMITIES: No clubbing cyanosis, 1+ pitting edema in the lower extremities bilaterally, surgical scars to the left lower extremity and groin, calves are bilaterally symmetrical, no Homans sign, no popliteal cord sign. Distal pulses equal and bilateral PSYCH: Agitated, anxious Result Diagram: 05/28/1842905/28/18429 Results 24 hrs Current Medications Medications Dose Sig/Rehana Start Time Status Last (Trade) Ordered Route PRN Stop Time Admin Dose Reason Admin Propofol 100 ml @ 3 ONCE ONCE 05/28/18 05/28/18 mls/hr IV 01:11 01:23 05/29/18 10:30 Midazolam 50 ml @ 3 ONCE STAT 05/28/18 DC HCl mls/hr IV 01:03 05/28/18 01:16 Albuterol 15 mg ONCE STAT 05/28/18 DC 05/28/18 (Proventil INH 01:16 01:30 0.5% (Neb)) 05/28/18 01:18 Ipratropium 1 mg ONCE STAT 05/28/18 DC 05/28/18 [place] INH 01:16 01:30 (Atrovent 05/28/18 01:18 0.02% (Neb)) Procedures/MDM IV line was established patient was placed on quality assurance monitor chassis rhythm strip revealed a narrow complex tachycardia at 140 bpm with upright P and T waves. Patient was afebrile. Raymundo catheter was placed Patient presented with EMS on high flow oxygen but could not breathe properly and was tachypneic, dyspneic, hypoxic. Endotracheal Intubation by me using video laryngoscopy: Pre assessment performed. Pre-oxygenation performed with 100% oxygen RSI: Performed w/o complication or hypoxic events. Medications included etomidate 20 mg IV and succinylcholine 100 mg IV Blade: 4.0 ET Tube: 7.5 cm Depth: 20 cm at the lip Intubation confirmed by colorimetric CO2, equal breath sounds, quiet over the s tomach. Chest X-ray 1V Interpreted by me: There is cardiomegaly and bilateral pulmonary vascular congestion, ET tube is in place about 2 cm above erika, AICD pacemaker in the right chest, there is an artifact in the left upper chest which teacher visually impaired's hand although this does not obscure the cardio pulmonary structures Central Line Placement by me: After the patient was consented and a time out was performed, appropriate hand hygiene was performed, the skin site was fully prepped and maximal sterile barrier technique was employed where the patient was sterilely draped, and the provider wore a mask and sterile gown and gloves. Anesthesia: 1% lidocaine locally Location: Left internal jugular Device: Multiple lumen Technique: Seldinger technique. Secured with suture. Results: Venous return from all ports with easy saline flush. No complications. The entire guide wire retrieved and disposed of. ED Ultrasound: Central line placed by me using concurrent ultrasound guidance done using sterile technique. Real time image archived in the medical record confirms vascular anatomy. The patient was initially kept sedated with propofol drip although I also ordered Versed and fentanyl drip postintubation. EKG abnormal with normal sinus rhythm at 98 bpm, normal axis, right ventricular conduction delay QRS duration 106 ms, diffuse T wave inversions with [address] depressions in precordial leads I also treated the patient with albuterol 15mg via nebulizer and methylpr ednisolone 125 mg IV, as well as Lasix 80 mg IV. Patient also received ceftriaxone 1 g IV CBC revealed a mild leukocytosis, electrolytes reveal kidney injury, lipase elevated, troponin positive at 0.5 Critical Care: Time: 58 minutes, this was time separate from other billable procedures. Treatments/Evaluations: Close monitoring and treatment of unstable vital signs, cardiorespiratory, and neurologic status, while maintaining tight balance of fluid, respiratory, and cardiac interventions. Patient's vital signs have stabilized after intubation and continued IV sedation. He will require hemodialysis and may require further imaging such as CT scan of the abdomen and pelvis although this will be deferred to admitting team. I spoke to Dr. Chong and he recommended admission to panel, patient admitted to Dr. Roth under ICU Departure Diagnosis: Primary Impression: Acute respiratory failure Respiratory failure complication: hypoxia and hypercapnia Qualified Codes: J96.01 - Acute respiratory failure with hypoxia; J96.02 - Acute respiratory failure with hypercapnia Additional Impressions: CHF (congestive heart failure) Heart failure type: combined systolic and diastolic Heart failure chronicity: acute Qualified Codes: I50.41 - Acute combined systolic (congestive) and diastolic (congestive) heart failure COPD (chronic obstructive pulmonary disease) COPD type: COPD with acute exacerbation Qualified Codes: J44.1 - Chronic obstructive pulmonary disease with (acute) exacerbation End stage kidney disease Abnormal EKG Non-STEMI (non-ST elevated myocardial infarction) Elevated lipase Condition: Critical SMILEY BELTRAN MD May 28, 2018 04:00
[2018-05-28] MEDS ORDERED: CEFTRIAXONE 1 GM/50 ML (PMX) 50 ML IVPB ONE (04:30)
[2018-05-28] MEDS: HEPARIN 5,000 UNIT/1 ML VIAL SC SCH ×3 (06:50→23:02)
[2018-05-28] MEDS ORDERED: SUCCINYLCHOLINE CHLORIDE 100 MG/5 ML SYG IV ONE (07:00)
[2018-05-28] MEDS ORDERED: ETOMIDATE 20 MG INJ ONE (07:00)
[2018-05-28] MEDS ORDERED: PROPOFOL 200 MG INJ ONE (07:00)
[2018-05-28] MEDS: FAMOTIDINE 20 MG INJ IV SCH (09:03)
[2018-05-28] MEDS ORDERED: LEVOFLOXACIN 500MG/D5W (PMX) 100 ML IVPB SCH (10:00)
--- NOTE | 2018-05-28 10:38 | CONS ---
DATE OF ADMISSION: 05/28/2018 DATE OF CONSULTATION: TYPE OF CONSULTATION: Pulmonary. REASON FOR CONSULTATION: Ventilator management. Thank you, Dr. Mcdermott, for this consultation. HISTORY OF PRESENT ILLNESS: This is a 63-year-old gentleman with history of COPD, end-stage renal fa ilure, hemodialysis, CHF, came in with increasing shortness of breath, orthopnea, PND, failed noninva sive positive pressure ventilation requiring emergent intubation and mechanical ventilation. Few fur ther details are available at present. PAST MEDICAL HISTORY: As above. MEDICATIONS: Per chart. ALLERGIES: NO KNOWN. SOCIAL HISTORY: Tobacco history unknown. PHYSICAL EXAMINATION GENERAL: Obese gentleman, orally intubated on mechanical ventilation, appears comfortable at rest. VITAL SIGNS: Temperature 98, pulse 73, blood pressure 111/53, O2 saturation 96%. NECK: Supple. JVD is not elevated. CARDIAC: S1, S2, no added sounds or murmurs. CHEST: Diminished air entry bilaterally. ABDOMEN: Soft, nontender. No guarding or rebound. EXTREMITIES: No cyanosis, clubbing. NEUROLOGICAL: Generalized weakness. LABORATORY DATA: White count 14.3, hemoglobin 11, platelets of 211. BUN 90, creatinine 3.81. INR 0 .93. Arterial blood gas initially 7.26, pCO2 78, pH 7.3, pCO2 of 58. DIAGNOSTIC DATA: Chest x-ray was reviewed, shows pulmonary edema. IMPRESSION AND PLAN: Acute hypoxemic respiratory failure likely secondary to volume overload, congest hilary cardiac failure with underlying history of COPD and heart failure with probable obstructive sleep apnea. The patient will require: 1. Mechanical ventilation. 2. Bronchodilators. 3. Diuretics. 4. Antibiotics. 5. DVT and GI prophylaxis. 6. Echocardiogram 7. Renal consult for hemodialysis. Dictated By: BHAVANA GONZALEZ MD SV/NTS Conf#: [id number] DID#: [id number] CC: DANISH MCDERMOTT MD;*EndCC*
[2018-05-28] MEDS: ALBUTEROL HFA 8 GM INHALER INH SCH ×3 (10:42→19:31)
[2018-05-28] MEDS: METHYLPREDNISOLONE 40 MG INJ IV SCH ×3 (10:44→23:07)
--- NOTE | 2018-05-28 11:08 | HP ---
Date/Time of Note Date/Time of Note DATE: 05/28/18 TIME: 11:04 Assessment/Plan VTE Prophylaxis Risk score (from Ns)>0 risk: 7 SCD applied (from Ns): Yes Pharmacological prophylaxis: heparin Lines/Catheters IV Catheter Type (from Nrs): Central Line Central line still needed: Yes Urinary Cath still in place: Yes Reason Cath still needed: skin wounds contaminated by urine Assessment/Plan Hospital Course 1) CHF - IV lasix 2) respiratory failure - on ventilator 3) renal failure - consult nephrology Result Diagram: 05/28/18 0430 05/28/18 0430 Results 24hrs Laboratory Tests Test 05/28/18 03:50 05/28/18 04:10 05/28/18 04:30 Blood Gas Specimen Blood arterial Blood arterial Source Arterial Blood Date 05/28/2018 4:00:17 AM 05/28/2018 4:10:34 AM Drawn Arterial Blood pH 7.267 *L 7.303 L (Temp corrected) Arterial Blood pCO2 68.2 H 58.0 H (Temp correct) Arterial Blood pO2 54.2 *L 285.1 H (Temp corrected) Arterial Blood HCO3 30.4 H 28.1 H Arterial Blood Base 1.8 0.7 Excess Arterial Blood 83.8 L 99.3 H Oxygen Saturation Vin Test ACCEPTAB ACCEPTAB Arterial Blood Gas Right Radial Right Radial Puncture Site Arterial 0.5 0.4 Blood Carboxyhemoglob in Arterial Blood 0.2 0.2 Methemoglobin Blood Gas A-a O2 590.6 H 369.9 H Differential Oxyhemoglobin Percent 83.2 L 98.7 Blood Gas Temperature 37.0 37.0 Blood Gas Respiration 18.0 18.0 Rate Blood Gas Actual 18 18 Respiration Rate Blood Gas Modality VENT - AC VENT - AC FiO2 100.0 100.0 Blood Gas Tidal 500.0 500.0 Volume Blood Gas Low PEEP 5.0 5.0 Setting Blood Gas Critical Fabricio BELTRAN MD Value Read Back Blood Gas Notified SAMUEL BAKER Whom Blood Gas Notified 05/28/2018 4:09:06 AM 05/28/2018 4:22:26 AM Time White Blood Count 14.3 #H Red Blood Count 3.56 #L Hemoglobin 11.0 L Hematocrit 35.8 #L Mean Corpuscular 100.6 Volume Mean Corpuscular 30.9 Hemoglobin Mean Corpuscular 30.7 L Hemoglobin Concent Red Cell Distribution 14.3 Width Platelet Count 211 Mean Platelet Volume 10.5 H Immature Granulocytes 0.800 H % Neutrophils % 83.7 H Lymphocytes % 8.8 L Monocytes % 4.3 Eosinophils % 1.9 Basophils % 0.5 Nucleated Red Blood 0.0 Cells % Immature Granulocytes 0.120 H # Neutrophils # 12.0 H Lymphocytes # 1.3 Monocytes # 0.6 Eosinophils # 0.3 Basophils # 0.1 Nucleated Red Blood 0.0 Cells # Prothrombin Time 12.6 Prothrombin Time 1.0 Ratio INR International 0.93 Normalized Ratio Activated 35.4 H Partial Thromboplast Time Sodium Level 141 Potassium Level 4.3 Chloride Level 97 Carbon Dioxide Level 30 Anion Gap 14 H Blood Urea Nitrogen 90 H Creatinine 3.81 H Est Glomerular 16 L Filtrat Rate mL/min Glucose Level 274 H Hemoglobin A1c 9.5 H Calcium Level 8.4 Total Bilirubin 0.1 L Direct Bilirubin 0.00 Indirect Bilirubin 0.1 Aspartate Amino 42 Transf (AST/SGOT) Alanine 25 Aminotransferase (ALT /SGPT) Alkaline Phosphatase 128 H Troponin I 0.463 *H Total Protein 7.4 Albumin 4.2 Globulin 3.20 Albumin/Globulin 1.31 Ratio Lipase 1385 H HPI/ROS Admit Date/Time Admit Date/Time May 28, 2018 at 01:22 Hx of Present Illness Patient with diabetes, congestive heart failure, renal failure comes in from [facility] for increased generalized swelling. Patient was evaluated in the emergency room and found to have respiratory distress and had to be intubated. PMH/Family/Social Past Medical History Medical History: congestive heart failure, hypertension, renal disease Medications Current Medications Propofol 100 ml @ 3 mls/hr ONCE ONCE IV Last administered on 05/28/18at 01:23; Admin Dose 3 MLS/HR; Start 05/28/18 at 01:11; Stop 05/29/18 at 10:30 Midazolam HCl 50 ml @ 3 mls/hr TITRATE IV Last administered on 05/28/18at 10:26; Admin Dose 10 MLS/HR; Start 05/28/18 at 01:30; Stop 05/28/18 at 17:42 Fentanyl 100 ml @ 2.5 mls/hr TITRATE IV Last administered on 05/28/18at 01:46; Admin Dose 2.5 MLS/HR; Start 05/28/18 at 01:30; Stop 05/29/18 at 17:29 Ondansetron HCl (Zofran Inj) 4 mg Q6H PRN IV NAUSEA AND/OR VOMITING; Start 05/28/18 at 01:30 Morphine Sulfate (morphine) 2 mg Q4H PRN IV PAIN LEVEL 7-10; Start 05/28/18 at 01:30 Famotidine (Pepcid Iv) 20 mg DAILY IV Last administered on 05/28/18at 09:03; Admin Dose 20 MG; Start 05/28/18 at 09:00 Heparin Sodium (Porcine) (Heparin (5000 Units/1ml)) 5,000 unit Q8 SC Last administered on 05/28/18at 06:50; Admin Dose 5,000 UNIT; Start 05/28/18 at 06:00 Methylprednisolone Sodium Succinate (Solu-Medrol) 40 mg Q8 IV Last administered on 05/28/18at 10:44; Admin Dose 40 MG; Start 05/28/18 at 10:00 Levofloxacin/ Dextrose 100 ml @ 100 mls/hr Q48H IVPB Last administered on 05/28/18at 10:44; Admin Dose 100 MLS/HR; Start 05/28/18 at 10:00 Albuterol (Ventolin Hfa) 2 puff Q6H RESP THERAPY INH Last administered on 05/28/18at 10:42; Admin Dose 2 PUFF; Start 05/28/18 at 10:00 Coded Allergies: No Known Allergies (Unverified Allergy, Mild, 04/19/18) Family History Significant Family History: no pertinent family hx Social History Smoking Status: Former smoker Exam/Review of Systems Vital Signs Vitals Vital Signs Date Temp Pulse Resp B/P (MAP) Pulse Ox O2 O2 Flow FiO2 Time Delivery Rate 05/28/18 73 08:00 05/28/18 15 111/53 100 07:00 (72) 05/28/18 98.9 Mechanical 05:34 Ventilator 05/28/18 50 05:15 Intake and Output 05/27/18 05/27/18 05/28/18 1414:59 22:59 06:59 OutputOutput Total 300 ml BalanceBalance -300 ml Exam Constitutional: well developed Head: normocephalic, atraumatic Neck: supple Respiratory: diminished breath sounds Cardiovascular: regular rate and rhythm Gastrointestinal: soft, non-tender Extremities: normal pulses DANISH MCDERMOTT May 28, 2018 11:08
--- NOTE | 2018-05-28 12:06 | CONS ---
Assessment/Plan Assessment/Plan Assessment/Plan Consult dictated 1-CKD likely sseac to DM with now evidence of chf, to have hd today 2-Respir failure sec to chf and ? respir infection 3-Pancreatitis (lipase elevated) 4-Known CAD Consultation Date/Type/Reason Admit Date/Time May 28, 2018 at 01:22 Type of Consult Nephrology Date/Time of Note DATE: 05/28/18 TIME: 12:04 Past Medical History Home Meds Reported Medications Furosemide* (Furosemide*) 80 Mg Tablet, 80 MG PO BID, #60 TAB 04/19/18 Pregabalin* (Lyrica*) 50 Mg Capsule, 50 MG PO BID, CAP 03/05/18 Omeprazole* (Omeprazole*) 40 Mg Capsule.dr, 40 MG PO DAILY, #30 CAP 03/05/18 Zolpidem Tartrate* (Ambien*) 10 Mg Tablet, 10 MG PO QHS PRN for INSOMNIA, TAB 03/05/18 Tamsulosin Hcl* (Tamsulosin Hcl*) 0.4 Mg Cap.er.24h, 0.4 MG PO HS, CAP 03/05/18 Sevelamer Carbonate* (Renvela*) 800 Mg Tablet, 1.6 GM PO WITH MEALS, TAB 03/05/18 Metoprolol Succinate* (Toprol XL*) 50 Mg Tab.er.24h, 50 MG PO DAILY, #30 TAB 03/05/18 Insulin Degludec (Tresiba Flextouch U-100) 100 Unit/1 Ml Insuln.pen, 40 UNIT SQ QHS 03/05/18 Insulin Aspart* (Novolog Insulin Pen*) 100 Unit/Ml Soln, 12 UNIT SC WITH MEALS, EA 03/05/18 Fenofibrate Nanocrystallized* (Fenofibrate*) 145 Mg Tablet, 145 MG PO DAILY, TAB 03/05/18 Esomeprazole Mag Trihydrate (Nexium) 40 Mg Capsule.dr, 40 MG PO DAILY, #30 CAP 03/05/18 Duloxetine Hcl* (Cymbalta*) 60 Mg Capsule.dr, 60 MG PO DAILY, CAP 03/05/18 Docusate Sodium* (Colace*) 250 Mg Capsule, 250 MG PO BID, #60 CAP 03/05/18 Cyclobenzaprine Hcl* (Cyclobenzaprine Hcl*) 10 Mg Tablet, 10 MG PO Q6H, #60 TAB 12/16/18 Clopidogrel Bisulfate (Clopidogrel) 75 Mg Tablet, 75 MG PO DAILY, #30 TAB 03/05/18 Carvedilol* (Carvedilol*) 12.5 Mg Tablet, 12.5 MG PO DAILY, #60 TAB 03/05/18 Atorvastatin* (Atorvastatin*) 80 Mg Tablet, 80 MG PO QHS, #30 TAB 03/05/18 Aspirin* (Aspirin* EC) 81 Mg Tablet.dr, 81 MG PO DAILY, TAB 03/05/18 Apixaban* (Eliquis*) 2.5 Mg Tablet, 2.5 MG PO BID, TAB 03/05/18 Medications Current Medications Propofol 100 ml @ 3 mls/hr ONCE ONCE IV Last administered on 05/28/18at 01:23; Admin Dose 3 MLS/HR; Start 05/28/18 at 01:11; Stop 05/29/18 at 10:30 Midazolam HCl 50 ml @ 3 mls/hr TITRATE IV Last administered on 05/28/18at 10:26; Admin Dose 10 MLS/HR; Start 05/28/18 at 01:30; Stop 05/28/18 at 17:42 Fentanyl 100 ml @ 2.5 mls/hr TITRATE IV Last administered on 05/28/18at 01:46; Admin Dose 2.5 MLS/HR; Start 05/28/18 at 01:30; Stop 05/29/18 at 17:29 Ondansetron HCl (Zofran Inj) 4 mg Q6H PRN IV NAUSEA AND/OR VOMITING; Start 05/28/18 at 01:30 Morphine Sulfate (morphine) 2 mg Q4H PRN IV PAIN LEVEL 7-10; Start 05/28/18 at 01:30 Famotidine (Pepcid Iv) 20 mg DAILY IV Last administered on 05/28/18at 09:03; Admin Dose 20 MG; Start 05/28/18 at 09:00 Heparin Sodium (Porcine) (Heparin (5000 Units/1ml)) 5,000 unit Q8 SC Last administered on 05/28/18at 06:50; Admin Dose 5,000 UNIT; Start 05/28/18 at 06:00 Methylprednisolone Sodium Succinate (Solu-Medrol) 40 mg Q8 IV Last administered on 05/28/18at 10:44; Admin Dose 40 MG; Start 05/28/18 at 10:00 Levofloxacin/ Dextrose 100 ml @ 100 mls/hr Q48H IVPB Last administered on 05/28/18at 10:44; Admin Dose 100 MLS/HR; Start 05/28/18 at 10:00 Albuterol (Ventolin Hfa) 2 puff Q6H RESP THERAPY INH Last administered on 05/28/18at 10:42; Admin Dose 2 PUFF; Start 05/28/18 at 10:00 Allergies: Coded Allergies: No Known Allergies (Unverified Allergy, Mild, 04/19/18) Social History Smoking Status: Former smoker Exam/Review of Systems Vital Signs Vitals Vital Signs Date Temp Pulse Resp B/P (MAP) Pulse Ox O2 O2 Flow FiO2 Time Delivery Rate 05/28/18 76 20 100 40 11:10 05/28/18 112/45 Mechanical 11:00 (67) Ventilator 05/28/18 98.6 08:00 Intake and Output 05/27/18 05/27/18 05/28/18 1515:00 23:00 07:00 OutputOutput Total 375 ml BalanceBalance -375 ml Labs Result Diagram: 05/28/18 0430 05/28/18 0430 Results 24hrs Laboratory Tests Test 05/28/18 03:50 05/28/18 04:10 05/28/18 04:30 Blood Gas Specimen Blood arterial Blood arterial Source Arterial Blood Date 05/28/2018 4:00:17 AM 05/28/2018 4:10:34 AM Drawn Arterial Blood pH 7.267 *L 7.303 L (Temp corrected) Arterial Blood pCO2 68.2 H 58.0 H (Temp correct) Arterial Blood pO2 54.2 *L 285.1 H (Temp corrected) Arterial Blood HCO3 30.4 H 28.1 H Arterial Blood Base 1.8 0.7 Excess Arterial Blood 83.8 L 99.3 H Oxygen Saturation Vin Test ACCEPTAB ACCEPTAB Arterial Blood Gas Right Radial Right Radial Puncture Site Arterial 0.5 0.4 Blood Carboxyhemoglob in Arterial Blood 0.2 0.2 Methemoglobin Blood Gas A-a O2 590.6 H 369.9 H Differential Oxyhemoglobin Percent 83.2 L 98.7 Blood Gas Temperature 37.0 37.0 Blood Gas Respiration 18.0 18.0 Rate Blood Gas Actual 18 18 Respiration Rate Blood Gas Modality VENT - AC VENT - AC FiO2 100.0 100.0 Blood Gas Tidal 500.0 500.0 Volume Blood Gas Low PEEP 5.0 5.0 Setting Blood Gas Critical Fabricio BELTRAN MD Value Read Back Blood Gas Notified SAMUEL BAKER Whom Blood Gas Notified 05/28/2018 4:09:06 AM 05/28/2018 4:22:26 AM Time White Blood Count 14.3 #H Red Blood Count 3.56 #L Hemoglobin 11.0 L Hematocrit 35.8 #L Mean Corpuscular 100.6 Volume Mean Corpuscular 30.9 Hemoglobin Mean Corpuscular 30.7 L Hemoglobin Concent Red Cell Distribution 14.3 Width Platelet Count 211 Mean Platelet Volume 10.5 H Immature Granulocytes 0.800 H % Neutrophils % 83.7 H Lymphocytes % 8.8 L Monocytes % 4.3 Eosinophils % 1.9 Basophils % 0.5 Nucleated Red Blood 0.0 Cells % Immature Granulocytes 0.120 H # Neutrophils # 12.0 H Lymphocytes # 1.3 Monocytes # 0.6 Eosinophils # 0.3 Basophils # 0.1 Nucleated Red Blood 0.0 Cells # Prothrombin Time 12.6 Prothrombin Time 1.0 Ratio INR International 0.93 Normalized Ratio Activated 35.4 H Partial Thromboplast Time Sodium Level 141 Potassium Level 4.3 Chloride Level 97 Carbon Dioxide Level 30 Anion Gap 14 H Blood Urea Nitrogen 90 H Creatinine 3.81 H Est Glomerular 16 L Filtrat Rate mL/min Glucose Level 274 H Hemoglobin A1c 9.5 H Calcium Level 8.4 Total Bilirubin 0.1 L Direct Bilirubin 0.00 Indirect Bilirubin 0.1 Aspartate Amino 42 Transf (AST/SGOT) Alanine 25 Aminotransferase (ALT /SGPT) Alkaline Phosphatase 128 H Troponin I 0.463 *H Total Protein 7.4 Albumin 4.2 Globulin 3.20 Albumin/Globulin 1.31 Ratio Lipase 1385 H Medications Medications Current Medications Propofol 100 ml @ 3 mls/hr ONCE ONCE IV Last administered on 05/28/18at 01:23; Admin Dose 3 MLS/HR; Start 05/28/18 at 01:11; Stop 05/29/18 at 10:30 Midazolam HCl 50 ml @ 3 mls/hr TITRATE IV Last administered on 05/28/18at 10:26; Admin Dose 10 MLS/HR; Start 05/28/18 at 01:30; Stop 05/28/18 at 17:42 Fentanyl 100 ml @ 2.5 mls/hr TITRATE IV Last administered on 05/28/18 01:46; Admin Dose 2.5 MLS/HR; Start 05/28/18 at 01:30; Stop 05/29/18 at 17:29 Ondansetron HCl (Zofran Inj) 4 mg Q6H PRN IV NAUSEA AND/OR VOMITING; Start 05/28/18 at 01:30 Morphine Sulfate (morphine) 2 mg Q4H PRN IV PAIN LEVEL 7-10; Start 05/28/18 at 01:30 Famotidine (Pepcid Iv) 20 mg DAILY IV Last administered on 05/28/18 09:03; Admin Dose 20 MG; Start 05/28/18 at 09:00 Heparin Sodium (Porcine) (Heparin (5000 Units/1ml)) 5,000 unit Q8 SC Last administered on 05/28/18 06:50; Admin Dose 5,000 UNIT; Start 05/28/18 at 06:00 Methylprednisolone Sodium Succinate (Solu-Medrol) 40 mg Q8 IV Last administered on 05/28/18 10:44; Admin Dose 40 MG; Start 05/28/18 at 10:00 Levofloxacin/ Dextrose 100 ml @ 100 mls/hr Q48H IVPB Last administered on 05/28/18 10:44; Admin Dose 100 MLS/HR; Start 05/28/18 at 10:00 Albuterol (Ventolin Hfa) 2 puff Q6H RESP THERAPY INH Last administered on 05/28/18 10:42; Admin Dose 2 PUFF; Start 05/28/18 at 10:00 SALBADOR SHIRLEY MD May 28, 2018 12:06
[2018-05-28] MEDS ORDERED: DEXTROSE 50% 50 ML SYRINGE IV PRN ×2 (13:00)
[2018-05-28] MEDS ORDERED: GLUCOSE GEL 15 GRAM TUBE BUCCAL PRN (13:00)
[2018-05-28] MEDS ORDERED: GLUCAGON 1 MG INJ IM PRN (13:00)
[2018-05-28] MEDS ORDERED: GLUCOSE GEL 15 GRAM TUBE PO PRN ×2 (13:00)
[2018-05-28] MEDS ORDERED: SOD CHLORIDE 0.9% IV SCH (13:30)
[2018-05-28] MEDS ORDERED: MIDAZOLAM IV SCH (13:30)
[2018-05-28] MEDS ORDERED: FENTAnyl 1,000 MCG in SOD CHLORIDE 0.9% 100 ML IV SCH (13:30)
[2018-05-28] MEDS ORDERED: FENTAnyl 1,000 MCG in SOD CHLORIDE 0.9% 80 ML IV SCH (15:30)
[2018-05-28] MEDS: SOD CHLORIDE 0.9% IV SCH (16:50)
[2018-05-28] MEDS: MIDAZOLAM IV SCH (16:50)
[2018-05-28] MEDS: INSULIN ASPART [NOVOLOG] 3 ML PEN SC SCH (17:42)
[2018-05-28] MEDS ORDERED: INSULIN ASPART [NOVOLOG] 3 ML PEN SC ONE (18:00)
[2018-05-28] MEDS ORDERED: INSULIN GLARGINE [LANTus] (100 UNITS/ML) SYG SC SCH (20:00)
[2018-05-28] MEDS: ALBUMIN HUMAN 25% 100 ML IV SCH ×2 (22:03→23:00)
[2018-05-29] VITALS (47 sets, daily range): BP systolic 75–159; BP diastolic 43–95; PULSE 66–109; RESP 13–31
[2018-05-29] MEDS: INSULIN ASPART [NOVOLOG] 3 ML PEN SC SCH ×5 (01:03→21:00)
[2018-05-29] MEDS: ALBUTEROL HFA 8 GM INHALER INH SCH (01:11)
[2018-05-29] MEDS: SOD CHLORIDE 0.9% IV SCH (03:46)
[2018-05-29] MEDS: MIDAZOLAM IV SCH (03:46)
[2018-05-29] MEDS ORDERED: PANTOPRAZOLE 40 MG INJ IV SCH (06:00)
[2018-05-29] MEDS: HEPARIN 5,000 UNIT/1 ML VIAL SC SCH ×3 (06:29→22:00)
[2018-05-29] MEDS ORDERED: ALBUTEROL/IPRATROPIUM (NEB) 3 ML AMP HHN PRN (06:30)
[2018-05-29] MEDS: METHYLPREDNISOLONE 40 MG INJ IV SCH ×3 (06:31→21:59)
[2018-05-29] MEDS: morphine 2 MG INJ IV PRN ×3 (07:20→16:10)
--- NOTE | 2018-05-29 07:53 | CONS ---
DATE OF ADMISSION: 05/28/2018 DATE OF CONSULTATION: 05/28/2018 He is in the ICU in room 117. Thank you very much for allowing me to evaluate this 63-year-old male admitted to the hospital with i ncreasing shortness of breath with known chronic renal failure on outpatient dialysis. HISTORICAL EVENTS: As you well know, the patient was here in early 03/2018 with signs and symptoms o f volume overload/CHF and required urgent dialysis. He has known chronic renal failure likely relate d to diabetes as well as coronary artery disease with ICD implantation, peripheral vascular disease, diabetic retinopathy, anemia and chronic obstructive pulmonary disease, was evaluated in the ER [facility] er today and was noted to be markedly dyspneic, transferred to the ICU after an initial course of BiP AP followed by the need for intubation. He is now sedated and cannot provide me with no additional h istorical events. PRESENT MEDICATIONS: Include: 1. Ceftriaxone. 2. Levofloxacin. 3. Albuterol. 4. Pepcid. 5. Heparin. 6. Methylprednisolone. PHYSICAL EXAMINATION VITAL SIGNS: BP 112/45, pulse was 80, respirations 20, he was afebrile. EYES: Not tested. NECK: I appreciated no JVD. LUNGS: Reduced breath sounds. HEART: Tones were diminished. No third sound. ABDOMEN: Obese, moderately distended. EXTREMITIES: No pitting edema. LABORATORY AND DIAGNOSTIC STUDIES: Hematocrit 35.8, white count 14,300. Electrolytes are unrevealin g. BUN 90, creatinine 3.81. A1c was 9.5. Troponin was elevated. Liver tests were normal. Lipase was 13,085. IMPRESSION: 1. Chronic renal failure with now evidence of volume overload. We will order dialysis today. 2. Known coronary artery disease. 3. Pancreatitis as revealed by elevated lipase. PLAN: Rapid dialysis. We will follow with you. Continue need for mechanical ventilation. Cultures are pending. Antibiotics are in place. Dictated By: SALBADOR COLLIER/NTS Conf#: [id number] DID#: [id number] CC: DANISH MCDERMOTT MD;*EndCC*
[2018-05-29] MEDS: ALBUTEROL/IPRATROPIUM (NEB) 3 ML AMP HHN SCH ×3 (08:28→19:36)
[2018-05-29] MEDS: FAMOTIDINE 20 MG INJ IV SCH (09:10)
--- NOTE | 2018-05-29 09:11 | CONS ---
Assessment/Plan Assessment/Plan Hospital Course (Demo Recall) Assessment recommendations; 1. Patient admitted with hypercapnic respiratory failure which is a combination of some element of fluid overload as well as underlying sleep apnea, status post self extubation early this morning with stable clinical status. 2. Chronic renal failure, on hemodialysis. 3. History of cardiac arrhythmia status post pacemaker placement in the past. 4. Chronic anemia. 5. History of diabetes. 6. Possible underlying COPD patient does have a history of smoking. Continue on supportive care. Hemodialysis per swimming teacher. Consider transfer to medical floor after dialysis. Consultation Date/Type/Reason Admit Date/Time May 28, 2018 at 01:22 Initial Consult Date Type of Consult Pulmonary/critical care Patient's condition is stable. Patient self extubated at 6 AM this morning. Exhibiting stable hemodynamics and pulmonary status. Denies any shortness breath, chest pain, wheezing, any sputum production. General exam; elderly male, awake alert, currently in no distress. Reason for Consultation H EENT exam; supple neck, positive JVD. No lymphadenopathy. Midline trachea. No thyromegaly. Patient is edentulous. No neck masses. Chest exam; diminished but clear breath sounds. S1-S2 audible, no murmurs. Regular rhythm. Pacemaker in right chest wall. Abdomen exam; soft, protuberant. Nontender. Bowel sounds audible. Extremity exam; no peripheral edema clubbing. 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 Date/Time of Note DATE: 05/29/18 TIME: 09:07 Exam/Review of Systems Exam Vitals Vital Signs Date Temp Pulse Resp B/P (MAP) Pulse Ox O2 O2 Flow FiO2 Time Delivery Rate 05/29/18 105 25 95 Nasal 4.0 36 08:31 Cannula 05/29/18 154/71 06:30 (98) 05/29/18 97.8 04:00 Intake and Output 05/28/18 05/28/18 05/29/18 1515:00 23:00 07:00 IntakeIntake Total 435 ml 290 ml 275 ml OutputOutput Total 1025 ml 700 ml 2750 ml BalanceBalance -590 ml -410 ml -2475 ml Results Result Diagram: 05/29/18 0400 05/29/18 0400 Results 24hrs Laboratory Tests Test 05/28/18 12:45 05/28/18 17:37 05/28/18 19:57 05/29/18 01:00 Troponin I 0.336 *H Bedside Glucose 493 *H 432 *H 200 Test 05/29/18 04:00 05/29/18 06:30 05/29/18 07:00 White Blood Count 11.3 #H Red Blood Count 3.46 L Hemoglobin 10.7 L Hematocrit 34.1 L Mean Corpuscular 98.6 Volume Mean Corpuscular 30.9 Hemoglobin Mean Corpuscular 31.4 L Hemoglobin Concen t Red Cell 14.6 H Distribution Width Platelet Count 216 Mean Platelet 11.3 H Volume Immature 0.600 H Granulocytes % Neutrophils % 89.2 H Lymphocytes % 5.7 L Monocytes % 4.1 Eosinophils % 0.1 Basophils % 0.3 Nucleated Red 0.0 Blood Cells % Immature 0.070 H Granulocytes # Neutrophils # 10.1 H Lymphocytes # 0.6 L Monocytes # 0.5 Eosinophils # 0.0 Basophils # 0.0 Nucleated Red 0.0 Blood Cells # Sodium Level 143 Potassium Level 4.9 Chloride Level 100 Carbon Dioxide 31 Level Anion Gap 12 Blood Urea 58 #H Nitrogen Creatinine 2.89 H Est Glomerular 22 L Filtrat Rate mL/min Glucose Level 257 H Calcium Level 9.2 Phosphorus Level 3.2 Total Bilirubin 0.3 Direct Bilirubin 0.00 Indirect 0.3 Bilirubin Aspartate Amino 25 Transf (AST/SGOT) Alanine 19 Aminotransferase (ALT/SGPT) Alkaline 67 Phosphatase Total Protein 7.3 Albumin 4.3 Globulin 3.00 Albumin/Globulin 1.43 Ratio Lipase 205 Bedside Glucose 329 H Blood Gas Blood arterial Specimen Source Arterial Blood 05/29/2018 7:50:4 Date Drawn 2 AM Arterial Blood pH 7.358 (Temp corrected) Arterial Blood 50.6 H pCO2 (Temp correct) Arterial Blood 64.8 L pO2 (Temp corrected) Arterial Blood 27.8 H HCO3 Arterial Blood 1.6 Base Excess Arterial Blood 89.6 L Oxygen Saturation Vin Test ACCEPTAB Arterial Blood LB Gas Puncture Site Arterial 1.0 Blood Carboxyhemo globin Arterial Blood 0 Methemoglobin Blood Gas A-a O2 111.4 H Differential Oxyhemoglobin 88.7 L Percent Blood Gas 37.0 Temperature Blood Gas NASAL CANNULA Modality FiO2 33.0 Blood Gas TM Notified Whom Blood Gas 05/29/2018 8:13:3 Notified Time 2 AM Medications Medication Current Medications Propofol 100 ml @ 3 mls/hr ONCE ONCE IV Last administered on 05/28/18at 01:23; Admin Dose 3 MLS/HR; Start 05/28/18 at 01:11; Stop 05/29/18 at 10:30 Ondansetron HCl (Zofran Inj) 4 mg Q6H PRN IV NAUSEA AND/OR VOMITING; Start 05/28/18 at 01:30 Morphine Sulfate (morphine) 2 mg Q4H PRN IV PAIN LEVEL 7-10 Last administered on 05/29/18at 07:20; Admin Dose 2 MG; Start 05/28/18 at 01:30 Famotidine (Pepcid Iv) 20 mg DAILY IV Last administered on 05/28/18at 09:03; Admin Dose 20 MG; Start 05/28/18 at 09:00 Heparin Sodium (Porcine) (Heparin (5000 Units/1ml)) 5,000 unit Q8 SC Last administered on 05/29/18at 06:29; Admin Dose 5,000 UNIT; Start 05/28/18 at 06:00 Methylprednisolone Sodium Succinate (Solu-Medrol) 40 mg Q8 IV Last administered on 05/29/18at 06:31; Admin Dose 40 MG; Start 05/28/18 at 10:00 Levofloxacin/ Dextrose 100 ml @ 100 mls/hr Q48H IVPB Last administered on 05/28/18at 10:44; Admin Dose 100 MLS/HR; Start 05/28/18 at 10:00 Insulin Aspart (Novolog Insulin Pen) NOVOLOG *MODERATE* ALGORI... Q6 SC Last administered on 05/29/18at 06:36; Admin Dose 10 UNIT; Start 05/28/18 at 18:00 Miscellaneous Information 1 ea NOTE XX ; Start 05/28/18 at 13:00 Glucose (Glutose) 15 gm Q15M PRN PO DECREASED GLUCOSE; Start 05/28/18 at 13:00 Glucose (Glutose) 22.5 gm Q15M PRN PO DECREASED GLUCOSE; Start 05/28/18 at 13:00 Dextrose (D50w Syringe) 25 ml Q15M PRN IV DECREASED GLUCOSE; Start 05/28/18 at 13:00 Dextrose (D50w Syringe) 50 ml Q15M PRN IV DECREASED GLUCOSE; Start 05/28/18 at 13:00 Glucagon (Glucagen) 1 mg Q15M PRN IM DECREASED GLUCOSE; Start 05/28/18 at 13:00 Glucose (Glutose) 15 gm Q15M PRN BUCCAL DECREASED GLUCOSE; Start 05/28/18 at 13:00 Fentanyl 1000 mcg/ Sodium Chloride 100 ml @ 2.5 mls/hr TITRATE IV Last a dministered on 05/28/18at 23:06; Admin Dose 5 MLS/HR; Start 05/28/18 at 15:30 Midazolam HCl 50 mg/Sodium Chloride 50 ml @ 3 mls/hr TITRATE IV Last administered on 05/29/18at 03:46; Admin Dose 5 MLS/HR; Start 05/28/18 at 15:30 Insulin Glargine (Lantus) 5 units DAILY@2000 SC Last administered on 05/28/18at 21:11; Admin Dose 5 UNITS; Start 05/28/18 at 20:00 Albuterol/ Ipratropium (Duoneb) 3 ml Q6H RESP THERAPY HHN Last administered on 05/29/18at 08:28; Admin Dose 3 ML; Start 05/29/18 at 08:00 Albuterol/ Ipratropium (Duoneb) 3 ml Q2H RESP THERAPY PRN HHN SHORTNESS OF BREATH; Start 05/29/18 at 06:30 KIMBERLY OTTO May 29, 2018 09:11
--- NOTE | 2018-05-29 09:47 | CONS ---
Assessment/Plan Assessment/Plan Assessment/Plan (Daily) 1. CKD with next HD tomm 2. CHF improving clinically and by cxr 3. DM Consultation Date/Type/Reason Admit Date/Time May 28, 2018 at 01:22 Initial Consult Date Date/Time of Note DATE: 05/29/18 TIME: 09:45 24 HR Interval Summary Subjective hx not possible: other (Pt self extubated himself earlier this am) Exam/Review of Systems Exam Vitals Vital Signs Date Temp Pulse Resp B/P (MAP) Pulse Ox O2 O2 Flow FiO2 Time Delivery Rate 05/29/18 105 25 95 Nasal 4.0 36 08:31 Cannula 05/29/18 154/71 06:30 (98) 05/29/18 97.8 04:00 Intake and Output 05/28/18 05/28/18 05/29/18 1414:59 22:59 06:59 IntakeIntake Total 430 ml 290 ml 295 ml OutputOutput Total 975 ml 775 ml 2800 ml BalanceBalance -545 ml -485 ml -2505 ml Neck: No jvd Respiratory: diminished breath sounds Cardiovascular: regular rate and rhythm Gastrointestinal: soft; No tender Extremities: edema Results Result Diagram: 05/29/18 0400 05/29/18 0400 Results 24hrs Laboratory Tests Test 05/28/18 12:45 05/28/18 17:37 05/28/18 19:57 05/29/18 01:00 Troponin I 0.336 *H Bedside Glucose 493 *H 432 *H 200 Test 05/29/18 04:00 05/29/18 06:30 05/29/18 07:00 White Blood Count 11.3 #H Red Blood Count 3.46 L Hemoglobin 10.7 L Hematocrit 34.1 L Mean Corpuscular 98.6 Volume Mean Corpuscular 30.9 Hemoglobin Mean Corpuscular 31.4 L Hemoglobin Concen t Red Cell 14.6 H Distribution Width Platelet Count 216 Mean Platelet 11.3 H Volume Immature 0.600 H Granulocytes % Neutrophils % 89.2 H Lymphocytes % 5.7 L Monocytes % 4.1 Eosinophils % 0.1 Basophils % 0.3 Nucleated Red 0.0 Blood Cells % Immature 0.070 H Granulocytes # Neutrophils # 10.1 H Lymphocytes # 0.6 L Monocytes # 0.5 Eosinophils # 0.0 Basophils # 0.0 Nucleated Red 0.0 Blood Cells # Sodium Level 143 Potassium Level 4.9 Chloride Level 100 Carbon Dioxide 31 Level Anion Gap 12 Blood Urea 58 #H Nitrogen Creatinine 2.89 H Est Glomerular 22 L Filtrat Rate mL/min Glucose Level 257 H Calcium Level 9.2 Phosphorus Level 3.2 Total Bilirubin 0.3 Direct Bilirubin 0.00 Indirect 0.3 Bilirubin Aspartate Amino 25 Transf (AST/SGOT) Alanine 19 Aminotransferase (ALT/SGPT) Alkaline 67 Phosphatase Total Protein 7.3 Albumin 4.3 Globulin 3.00 Albumin/Globulin 1.43 Ratio Lipase 205 Bedside Glucose 329 H Blood Gas Blood arterial Specimen Source Arterial Blood 05/29/2018 7:50:4 Date Drawn 2 AM Arterial Blood pH 7.358 (Temp corrected) Arterial Blood 50.6 H pCO2 (Temp correct) Arterial Blood 64.8 L pO2 (Temp corrected) Arterial Blood 27.8 H HCO3 Arterial Blood 1.6 Base Excess Arterial Blood 89.6 L Oxygen Saturation Vin Test ACCEPTAB Arterial Blood LB Gas Puncture Site Arterial 1.0 Blood Carboxyhemo globin Arterial Blood 0 Methemoglobin Blood Gas A-a O2 111.4 H Differential Oxyhemoglobin 88.7 L Percent Blood Gas 37.0 Temperature Blood Gas NASAL CANNULA Modality FiO2 33.0 Blood Gas TM Notified Whom Blood Gas 05/29/2018 8:13:3 Notified Time 2 AM Medications Medication Current Medications Propofol 100 ml @ 3 mls/hr ONCE ONCE IV Last administered on 05/28/18at 01:23; Admin Dose 3 MLS/HR; Start 05/28/18 at 01:11; Stop 05/29/18 at 10:30 Ondansetron HCl (Zofran Inj) 4 mg Q6H PRN IV NAUSEA AND/OR VOMITING; Start 05/28/18 at 01:30 Morphine Sulfate (morphine) 2 mg Q4H PRN IV PAIN LEVEL 7-10 Last administered on 05/29/18at 07:20; Admin Dose 2 MG; Start 05/28/18 at 01:30 Famotidine (Pepcid Iv) 20 mg DAILY IV Last administered on 05/29/18at 09:10; Admin Dose 20 MG; Start 05/28/18 at 09:00 Heparin Sodium (Porcine) (Heparin (5000 Units/1ml)) 5,000 unit Q8 SC Last administered on 05/29/18at 06:29; Admin Dose 5,000 UNIT; Start 05/28/18 at 06:00 Methylprednisolone Sodium Succinate (Solu-Medrol) 40 mg Q8 IV Last administered on 05/29/18at 06:31; Admin Dose 40 MG; Start 05/28/18 at 10:00 Levofloxacin/ Dextrose 100 ml @ 100 mls/hr Q48H IVPB Last administered on 05/28/18at 10:44; Admin Dose 100 MLS/HR; Start 05/28/18 at 10:00 Insulin Aspart (Novolog Insulin Pen) NOVOLOG *MODERATE* ALGORI... Q6 SC Last administered on 05/29/18at 06:36; Admin Dose 10 UNIT; Start 05/28/18 at 18:00 Miscellaneous Information 1 ea NOTE XX ; Start 05/28/18 at 13:00 Glucose (Glutose) 15 gm Q15M PRN PO DECREASED GLUCOSE; Start 05/28/18 at 13:00 Glucose (Glutose) 22.5 gm Q15M PRN PO DECREASED GLUCOSE; Start 05/28/18 at 13:00 Dextrose (D50w Syringe) 25 ml Q15M PRN IV DECREASED GLUCOSE; Start 05/28/18 at 13:00 Dextrose (D50w Syringe) 50 ml Q15M PRN IV DECREASED GLUCOSE; Start 05/28/18 at 13:00 Glucagon (Glucagen) 1 mg Q15M PRN IM DECREASED GLUCOSE; Start 05/28/18 at 13:00 Glucose (Glutose) 15 gm Q15M PRN BUCCAL DECREASED GLUCOSE; Start 05/28/18 at 13:00 Fentanyl 1000 mcg/ Sodium Chloride 100 ml @ 2.5 mls/hr TITRATE IV Last administered on 05/28/18at 23:06; Admin Dose 5 MLS/HR; Start 05/28/18 at 15:30 Midazolam HCl 50 mg/Sodium Chloride 50 ml @ 3 mls/hr TITRATE IV Last administered on 05/29/18at 03:46; Admin Dose 5 MLS/HR; Start 05/28/18 at 15:30 Insulin Glargine (Lantus) 5 units DAILY@2000 SC Last administered on 05/28/18at 21:11; Admin Dose 5 UNITS; Start 05/28/18 at 20:00 Albuterol/ Ipratropium (Duoneb) 3 ml Q6H RESP THERAPY HHN Last administered on 05/29/18at 08:28; Admin Dose 3 ML; Start 05/29/18 at 08:00 Albuterol/ Ipratropium (Duoneb) 3 ml Q2H RESP THERAPY PRN HHN SHORTNESS OF BREATH; Start 05/29/18 at 06:30 SALBADOR SHIRLEY MD May 29, 2018 09:46
[2018-05-29] MEDS ORDERED: INSULIN GLARGINE [LANTus] (100 UNITS/ML) SYG SC SCH ×3 (12:15→20:00)
[2018-05-29] MEDS ORDERED: INSULIN ASPART [NOVOLOG] 3 ML PEN SC SCH (13:00)
--- NOTE | 2018-05-29 13:29 | PN ---
Date/Time of Note Date/Time of Note DATE: 05/29/18 TIME: 13:19 Assessment/Plan VTE Prophylaxis Risk score (from Ns)>0 risk: 8 SCD applied (from Ns): Yes Pharmacological prophylaxis: LMWH Lines/Catheters IV C[facility]ter [facility]from [facility] Central Line Central line still needed: Yes Urinary Cath still in place: Yes Reason Cath still needed: urinary retention Assessment/Plan Hospital Course Patient is self extubated in a.m., continues on supplemental oxygen via nasal cannula, currently undergoing breathing treatment, awake alert. Patient is currently on Solu-Medrol blood sugar is elevated will increase Lantus and pre- meal NovoLog continue to monitor Accu-Chek q. before meals and at bedtime. Assessment/Plan -Acute respiratory failure requiring intubation most likely secondary to fluid overload and CHF exacerbation, patient is self extubated currently on supplemental oxygen via nasal cannula. -Systolic and diastolic congestive heart failure -Coronary artery disease -AICD -Hemodialysis dependent end-stage renal disease. Dr. Gilbert is following in nephrology consultation. -Diabetes mellitus type 2 with hemoglobin A1c of 9.1. Continue Lantus and pre- meal NovoLog. -COPD -Pancreatitis, resolved -Obesity with BMI of 39.3 Critical care time spent is 35 minutes. Further recommendations based on clinical course. Plan of care discussed with Dr. Scanlon. Result Diagram: 05/29/18 0400 05/29/18 0400 Results 24hrs Laboratory Tests Test 05/28/18 17:37 05/28/18 19:57 05/29/18 01:00 05/29/18 04:00 Bedside Glucose 493 *H 432 *H 200 White Blood Count 11.3 #H Red Blood Count 3.46 L Hemoglobin 10.7 L Hematocrit 34.1 L Mean Corpuscular 98.6 Volume Mean Corpuscular 30.9 Hemoglobin Mean Corpuscular 31.4 L Hemoglobin Concen t Red Cell 14.6 H Distribution Width Platelet Count 216 Mean Platelet 11.3 H Volume Immature 0.600 H Granulocytes % Neutrophils % 89.2 H Lymphocytes % 5.7 L Monocytes % 4.1 Eosinophils % 0.1 Basophils % 0.3 Nucleated Red 0.0 Blood Cells % Immature 0.070 H Granulocytes # Neutrophils # 10.1 H Lymphocytes # 0.6 L Monocytes # 0.5 Eosinophils # 0.0 Basophils # 0.0 Nucleated Red 0.0 Blood Cells # Sodium Level 143 Potassium Level 4.9 Chloride Level 100 Carbon Dioxide 31 Level Anion Gap 12 Blood Urea 58 #H Nitrogen Creatinine 2.89 H Est Glomerular 22 L Filtrat Rate mL/min Glucose Level 257 H Calcium Level 9.2 Phosphorus Level 3.2 Total Bilirubin 0.3 Direct Bilirubin 0.00 Indirect 0.3 Bilirubin Aspartate Amino 25 Transf (AST/SGOT) Alanine 19 Aminotransferase (ALT/SGPT) Alkaline 67 Phosphatase Total Protein 7.3 Albumin 4.3 Globulin 3.00 Albumin/Globulin 1.43 Ratio Lipase 205 Test 05/29/18 06:30 05/29/18 07:00 05/29/18 12:34 Bedside Glucose 329 H 391 H Blood Gas Blood arterial Specimen Source Arterial Blood 05/29/2018 7:50:4 Date Drawn 2 AM Arterial Blood pH 7.358 (Temp corrected) Arterial Blood 50.6 H pCO2 (Temp correct) Arterial Blood 64.8 L pO2 (Temp corrected) Arterial Blood 27.8 H HCO3 Arterial Blood 1.6 Base Excess Arterial Blood 89.6 L Oxygen Saturation Vin Test ACCEPTAB Arterial Blood LB Gas Puncture Site Arterial 1.0 Blood Carboxyhemo globin Arterial Blood 0 Methemoglobin Blood Gas A-a O2 111.4 H Differential Oxyhemoglobin 88.7 L Percent Blood Gas 37.0 Temperature Blood Gas NASAL CANNULA Modality FiO2 33.0 Blood Gas TM Notified Whom Blood Gas 05/29/2018 8:13:3 Notified Time 2 AM Exam/Review of Systems Exam Vitals Vital Signs Date Temp Pulse Resp B/P (MAP) Pulse Ox O2 O2 Flow FiO2 Time Delivery Rate 05/29/18 94 21 98 Nasal 3.0 32 13:08 Cannula 05/29/18 146/58 09:30 (87) 05/29/18 98.7 08:00 Intake and Output 05/28/18 05/28/18 05/29/18 1515:00 23:00 07:00 IntakeIntake Total 435 ml 290 ml 275 ml OutputOutput Total 1025 ml 700 ml 2775 ml BalanceBalance -590 ml -410 ml -2500 ml Constitutional: alert, oriented, obese Neck: supple Respiratory: diminished breath sounds Cardiovascular: regular rate and rhythm, other (Right chest AICD) Gastrointestinal: soft, non-tender Musculoskeletal: nl extremities to inspection Extremities: normal pulses, other (Status post partial left foot amputation, left upper extremity AV fistula) Neurological: nl mental status Results Results 24hrs Laboratory Tests Test 05/28/18 17:37 05/28/18 19:57 05/29/18 01:00 05/29/18 04:00 Bedside Glucose 493 *H 432 *H 200 White Blood Count 11.3 #H Red Blood Count 3.46 L Hemoglobin 10.7 L Hematocrit 34.1 L Mean Corpuscular 98.6 Volume Mean Corpuscular 30.9 Hemoglobin Mean Corpuscular 31.4 L Hemoglobin Concen t Red Cell 14.6 H Distribution Width Platelet Count 216 Mean Platelet 11.3 H Volume Immature 0.600 H Granulocytes % Neutrophils % 89.2 H Lymphocytes % 5.7 L Monocytes % 4.1 Eosinophils % 0.1 Basophils % 0.3 Nucleated Red 0.0 Blood Cells % Immature 0.070 H Granulocytes # Neutrophils # 10.1 H Lymphocytes # 0.6 L Monocytes # 0.5 Eosinophils # 0.0 Basophils # 0.0 Nucleated Red 0.0 Blood Cells # Sodium Level 143 Potassium Level 4.9 Chloride Level 100 Carbon Dioxide 31 Level Anion Gap 12 Blood Urea 58 #H Nitrogen Creatinine 2.89 H Est Glomerular 22 L Filtrat Rate mL/min Glucose Level 257 H Calcium Level 9.2 Phosphorus Level 3.2 Total Bilirubin 0.3 Direct Bilirubin 0.00 Indirect 0.3 Bilirubin Aspartate Amino 25 Transf (AST/SGOT) Alanine 19 Aminotransferase (ALT/SGPT) Alkaline 67 Phosphatase Total Protein 7.3 Albumin 4.3 Globulin 3.00 Albumin/Globulin 1.43 Ratio Lipase 205 Test 05/29/18 06:30 05/29/18 07:00 05/29/18 12:34 Bedside Glucose 329 H 391 H Blood Gas Blood arterial Specimen Source Arterial Blood 05/29/2018 7:50:4 Date Drawn 2 AM Arterial Blood pH 7.358 (Temp corrected) Arterial Blood 50.6 H pCO2 (Temp correct) Arterial Blood 64.8 L pO2 (Temp corrected) Arterial Blood 27.8 H HCO3 Arterial Blood 1.6 Base Excess Arterial Blood 89.6 L Oxygen Saturation Vin Test ACCEPTAB Arterial Blood LB Gas Puncture Site Arterial 1.0 Blood Carboxyhemo globin Arterial Blood 0 Methemoglobin Blood Gas A-a O2 111.4 H Differential Oxyhemoglobin 88.7 L Percent Blood Gas 37.0 Temperature Blood Gas NASAL CANNULA Modality FiO2 33.0 Blood Gas TM Notified Whom Blood Gas 05/29/2018 8:13:3 Notified Time 2 AM Medications Medication Current Medications Ondansetron HCl (Zofran Inj) 4 mg Q6H PRN IV NAUSEA AND/OR VOMITING; Start 05/28/18 at 01:30 Morphine Sulfate (morphine) 2 mg Q4H PRN IV PAIN LEVEL 7-10 Last administered on 05/29/18at 12:16; Admin Dose 2 MG; Start 05/28/18 at 01:30 Famotidine (Pepcid Iv) 20 mg DAILY IV Last administered on 05/29/18at 09:10; Admin Dose 20 MG; Start 05/28/18 at 09:00 Heparin Sodium (Porcine) (Heparin (5000 Units/1ml)) 5,000 unit Q8 SC Last administered on 05/29/18at 06:29; Admin Dose 5,000 UNIT; Start 05/28/18 at 06:00 Methylprednisolone Sodium Succinate (Solu-Medrol) 40 mg Q8 IV Last administered on 05/29/18at 06:31; Admin Dose 40 MG; Start 05/28/18 at 10:00 Levofloxacin/ Dextrose 100 ml @ 100 mls/hr Q48H IVPB Last administered on 05/28/18at 10:44; Admin Dose 100 MLS/HR; Start 05/28/18 at 10:00 Miscellaneous Information 1 ea NOTE XX ; Start 05/28/18 at 13:00 Glucose (Glutose) 15 gm Q15M PRN PO DECREASED GLUCOSE; Start 05/28/18 at 13:00 Glucose (Glutose) 22.5 gm Q15M PRN PO DECREASED GLUCOSE; Start 05/28/18 at 13:00 Dextrose (D50w Syringe) 25 ml Q15M PRN IV DECREASED GLUCOSE; Start 05/28/18 at 13:00 Dextrose (D50w Syringe) 50 ml Q15M PRN IV DECREASED GLUCOSE; Start 05/28/18 at 13:00 Glucagon (Glucagen) 1 mg Q15M PRN IM DECREASED GLUCOSE; Start 05/28/18 at 13:00 Glucose (Glutose) 15 gm Q15M PRN BUCCAL DECREASED GLUCOSE; Start 05/28/18 at 13:00 Albuterol/ Ipratropium (Duoneb) 3 ml Q6H RESP THERAPY HHN Last administered on 05/29/18at 13:07; Admin Dose 3 ML; Start 05/29/18 at 08:00 Albuterol/ Ipratropium (Duoneb) 3 ml Q2H RESP THERAPY PRN HHN SHORTNESS OF BREATH; Start 05/29/18 at 06:30 Insulin Aspart (Novolog Insulin Pen) NOVOLOG *MODERATE* ALGORI... Q4 SC Last administered on 05/29/18at 12:37; Admin Dose 12 UNIT; Start 05/29/18 at 13:00 Insulin Glargine (Lantus) 25 units DAILY@0800 SC Last administered on 05/29/18at 12:52; Admin Dose 25 UNITS; Start 05/29/18 at 12:15 AIDEN LYLE May 29, 2018 13:29
[2018-05-29] MEDS: morphine 4 MG/ML VIAL IV PRN (18:02)
[2018-05-29] MEDS: LORAZEPAM 1 MG TAB PO PRN (22:03)
[2018-05-30] VITALS (41 sets, daily range): BP systolic 88–161; BP diastolic 33–86; PULSE 69–97; RESP 13–26
[2018-05-30] MEDS: ALBUTEROL/IPRATROPIUM (NEB) 3 ML AMP HHN SCH ×4 (01:20→20:50)
[2018-05-30] MEDS: LORAZEPAM 1 MG TAB PO PRN ×2 (01:48→15:59)
[2018-05-30] MEDS: ACCU-CHEK XX SCH (02:00)
[2018-05-30] MEDS: METHYLPREDNISOLONE 40 MG INJ IV SCH ×3 (05:20→21:18)
[2018-05-30] MEDS ORDERED: HYDROCODONE/APAP (10/325) TAB PO PRN (05:30)
[2018-05-30] MEDS: HEPARIN 5,000 UNIT/1 ML VIAL SC SCH ×3 (05:35→21:24)
[2018-05-30] MEDS: morphine 4 MG/ML VIAL IV PRN ×2 (06:28→17:14)
[2018-05-30] MEDS: FAMOTIDINE 20 MG INJ IV SCH (08:21)
[2018-05-30] MEDS: INSULIN ASPART [NOVOLOG] 3 ML PEN SC SCH ×7 (08:26→21:00)
--- NOTE | 2018-05-30 08:32 | CONS ---
Assessment/Plan Assessment/Plan Assessment/Plan 1. CKD, to be dialyzed this am. 2. Congestive heart failure resolving 3. DM 4. ? Cont antibiotics Consultation Date/Type/Reason Admit Date/Time May 28, 2018 at 01:22 Type of Consult Nephrology Date/Time of Note DATE: 05/30/18 TIME: 08:29 Respiratory: No cough, No shortness of breath Cardiovascular: No chest pain Gastrointestinal: no complaints Exam/Review of Systems Vital Signs Vitals Vital Signs Date Temp Pulse Resp B/P (MAP) Pulse Ox O2 O2 Flow FiO2 Time Delivery Rate 05/30/18 90 20 142/68 98 Nasal 3.0 08:00 (92) Cannula 05/30/18 97.4 04:00 05/29/18 32 18:21 Intake and Output 05/29/18 05/29/18 05/30/18 1515:00 23:00 07:00 IntakeIntake Total 0 ml 530 ml 240 ml OutputOutput Total 400 ml 660 ml 180 ml BalanceBalance -400 ml -130 ml 60 ml Exam Neck: No jvd Respiratory: diminished breath sounds (and few rhonchi) Cardiovascular: regular rate and rhythm Gastrointestinal: soft Extremities: No edema Labs Result Diagram: 05/30/18 0530 05/30/18 0530 Results 24hrs Laboratory Tests Test 05/29/18 12:34 05/29/18 17:35 05/29/18 18:38 05/29/18 21:57 Bedside Glucose 391 H 306 H 291 H 162 Test 05/30/18 05:27 05/30/18 05:30 Bedside Glucose 179 White Blood Count 9.6 Red Blood Count 3.59 L Hemoglobin 11.1 L Hematocrit 36.0 L Mean Corpuscular 100.3 Volume Mean Corpuscular 30.9 Hemoglobin Mean Corpuscular 30.8 L Hemoglobin Concent Red Cell 14.6 H Distribution Width Platelet Count 245 Mean Platelet Volume 11.0 H Immature 0.400 Granulocytes % Neutrophils % 89.6 H Lymphocytes % 6.5 L Monocytes % 3.2 Eosinophils % 0.1 Basophils % 0.2 Nucleated Red Blood 0.0 Cells % Immature 0.040 H Granulocytes # Neutrophils # 8.6 H Lymphocytes # 0.6 L Monocytes # 0.3 Eosinophils # 0.0 Basophils # 0.0 Nucleated Red Blood 0.0 Cells # Sodium Level 143 Potassium Level 4.9 Chloride Level 100 Carbon Dioxide Level 30 Anion Gap 13 Blood Urea Nitrogen 83 H Creatinine 3.44 H Est Glomerular 18 L Filtrat Rate mL/min Glucose Level 196 Calcium Level 9.1 Medications Medications Current Medications Ondansetron HCl (Zofran Inj) 4 mg Q6H PRN IV NAUSEA AND/OR VOMITING; Start 05/28/18 at 01:30 Famotidine (Pepcid Iv) 20 mg DAILY IV Last administered on 05/30/18at 08:21; Admin Dose 20 MG; Start 05/28/18 at 09:00 Heparin Sodium (Porcine) (Heparin (5000 Units/1ml)) 5,000 unit Q8 SC Last administered on 05/30/18at 05:35; Admin Dose 5,000 UNIT; Start 05/28/18 at 06:00 Methylprednisolone Sodium Succinate (Solu-Medrol) 40 mg Q8 IV Last administered on 05/30/18at 05:20; Admin Dose 40 MG; Start 05/28/18 at 10:00 Levofloxacin/ Dextrose 100 ml @ 100 mls/hr Q48H IVPB Last administered on 05/28/18at 10:44; Admin Dose 100 MLS/HR; Start 05/28/18 at 10:00 Miscellaneous Information 1 ea NOTE XX ; Start 05/28/18 at 13:00 Glucose (Glutose) 15 gm Q15M PRN PO DECREASED GLUCOSE; Start 05/28/18 at 13:00 Glucose (Glutose) 22.5 gm Q15M PRN PO DECREASED GLUCOSE; Start 05/28/18 at 13:00 Dextrose (D50w Syringe) 25 ml Q15M PRN IV DECREASED GLUCOSE; Start 05/28/18 at 13:00 Dextrose (D50w Syringe) 50 ml Q15M PRN IV DECREASED GLUCOSE; Start 05/28/18 at 13:00 Glucagon (Glucagen) 1 mg Q15M PRN IM DECREASED GLUCOSE; Start 05/28/18 at 13:00 Glucose (Glutose) 15 gm Q15M PRN BUCCAL DECREASED GLUCOSE; Start 05/28/18 at 13:00 Albuterol/ Ipratropium (Duoneb) 3 ml Q6H RESP THERAPY HHN Last administered on 05/30/18at 08:00; Admin Dose 3 ML; Start 05/29/18 at 08:00 Albuterol/ Ipratropium (Duoneb) 3 ml Q2H RESP THERAPY PRN HHN SHORTNESS OF BREATH Last administered on 05/29/18 18:47; Admin Dose 3 ML; Start 05/29/18 at 06:30 Diagnostic Test (Pha) (Accu-Chek) 1 ea 02 XX Last administered on 05/30/18 02:00; Admin Dose 1 EA; Start 05/30/18 at 02:00 Insulin Aspart (Novolog Insulin Pen) 11 unit WITH MEALS SC Last administered on 05/30/18 08:26; Admin Dose 11 UNIT; Start 05/29/18 at 17:35 Insulin Aspart (Novolog Insulin Pen) NOVOLOG *MILD* ALGORITHM WITH MEALS BEDTIME SC Last administered on 05/30/18 08:27; Admin Dose 1 UNIT; Start 05/29/18 at 17:35 Insulin Glargine (Lantus) 32 units DAILY@2000 SC ; Start 05/30/18 at 20:00 Morphine Sulfate (morphine) 3 mg Q4H PRN IV PAIN LEVEL 7-10 Last administered on 05/30/18 06:28; Admin Dose 3 MG; Start 05/29/18 at 18:00 Lorazepam (Ativan) 1 mg TID PRN PO PANIC ATTACK Last administered on 05/30/18 01:48; Admin Dose 1 MG; Start 05/29/18 at 19:00 Acetaminophen/ Hydrocodone Bitart ([place] (10/325)) 1 tab Q6H PRN PO MODERATE PAIN LEVEL 4-6 Last administered on 05/30/18 05:19; Admin Dose 1 TAB; Start 05/30/18 at 05:30 SALBADOR SHIRLEY MD May 30, 2018 08:32
--- NOTE | 2018-05-30 09:09 | CONS ---
Consult Date/Type/Reason Admit Date/Time May 28, 2018 at 01:22 Initial Consult Date Type of Consult Pulmonary Date/Time of Note DATE: 05/30/18 TIME: 09:07 Subjective Patient remained stable post extubation awake alert comfortable no respiratory distress having hemodialysis this morning. Objective Vital Signs Date Temp Pulse Resp B/P (MAP) Pulse Ox O2 O2 Flow FiO2 Time Delivery Rate 05/30/18 90 18 139/71 98 Nasal 3.0 08:58 (93) Cannula 05/30/18 97.4 04:00 05/29/18 32 18:21 Intake and Output 05/29/18 05/29/18 05/30/18 1515:00 23:00 07:00 IntakeIntake Total 0 ml 530 ml 240 ml OutputOutput Total 400 ml 660 ml 280 ml BalanceBalance -400 ml -130 ml -40 ml Exam GENERAL: Obese [place] gentleman comfortable at rest no acute distress VITAL SIGNS: per chart NECK: Supple. No JVD or lymphadenopathy. CARDIAC EXAM: S1, S2. No added sounds or murmurs. CHEST: Diminished air entry bilaterally ABDOMEN: Soft, nontender. No guarding or rebound. EXTREMITIES: No cyanosis, clubbing or edema. NEUROLOGIC: Generalized weakness. No focal deficits. Vent Setting Ventilator Support Mode: AC Fraction of Inspired Oxygen pe: 32 Positive End Expiratory Pressu: 5.0 Results/Medications Result Diagram: 05/30/1830 05/30/18 0530 Results 24 hrs Laboratory Tests Test 05/29/18 12:34 05/29/18 17:35 05/29/18 18:38 05/29/18 21:57 Bedside Glucose 391 H 306 H 291 H 162 Test 05/30/18 05:27 05/30/18 05:30 05/30/18 08:23 Bedside Glucose 179 176 White Blood Count 9.6 Red Blood Count 3.59 L Hemoglobin 11.1 L Hematocrit 36.0 L Mean Corpuscular 100.3 Volume Mean Corpuscular 30.9 Hemoglobin Mean Corpuscular 30.8 L Hemoglobin Concent Red Cell 14.6 H Distribution Width Platelet Count 245 Mean Platelet Volume 11.0 H Immature 0.400 Granulocytes % Neutrophils % 89.6 H Lymphocytes % 6.5 L Monocytes % 3.2 Eosinophils % 0.1 Basophils % 0.2 Nucleated Red Blood 0.0 Cells % Immature 0.040 H Granulocytes # Neutrophils # 8.6 H Lymphocytes # 0.6 L Monocytes # 0.3 Eosinophils # 0.0 Basophils # 0.0 Nucleated Red Blood 0.0 Cells # Sodium Level 143 Potassium Level 4.9 Chloride Level 100 Carbon Dioxide Level 30 Anion Gap 13 Blood Urea Nitrogen 83 H Creatinine 3.44 H Est Glomerular 18 L Filtrat Rate mL/min Glucose Level 196 Calcium Level 9.1 Medications Current Medications Ondansetron HCl (Zofran Inj) 4 mg Q6H PRN IV NAUSEA AND/OR VOMITING; Start 05/28/18 at 01:30 Famotidine (Pepcid Iv) 20 mg DAILY IV Last administered on 05/30/18at 08:21; Admin Dose 20 MG; Start 05/28/18 at 09:00 Heparin Sodium (Porcine) (Heparin (5000 Units/1ml)) 5,000 unit Q8 SC Last administered on 05/30/18at 05:35; Admin Dose 5,000 UNIT; Start 05/28/18 at 06:00 Methylprednisolone Sodium Succinate (Solu-Medrol) 40 mg Q8 IV Last administered on 05/30/18at 05:20; Admin Dose 40 MG; Start 05/28/18 at 10:00 Levofloxacin/ Dextrose 100 ml @ 100 mls/hr Q48H IVPB Last administered on 05/28/18at 10:44; Admin Dose 100 MLS/HR; Start 05/28/18 at 10:00 Miscellaneous Information 1 ea NOTE XX ; Start 05/28/18 at 13:00 Glucose (Glutose) 15 gm Q15M PRN PO DECREASED GLUCOSE; Start 05/28/18 at 13:00 Glucose (Glutose) 22.5 gm Q15M PRN PO DECREASED GLUCOSE; Start 05/28/18 at 13:00 Dextrose (D50w Syringe) 25 ml Q15M PRN IV DECREASED GLUCOSE; Start 05/28/18 at 13:00 Dextrose (D50w Syringe) 50 ml Q15M PRN IV DECREASED GLUCOSE; Start 05/28/18 at 13:00 Glucagon (Glucagen) 1 mg Q15M PRN IM DECREASED GLUCOSE; Start 05/28/18 at 13:00 Glucose (Glutose) 15 gm Q15M PRN BUCCAL DECREASED GLUCOSE; Start 05/28/18 at 13:00 Albuterol/ Ipratropium (Duoneb) 3 ml Q6H RESP THERAPY HHN Last administered on 05/30/18 08:00; Admin Dose 3 ML; Start 05/29/18 at 08:00 Albuterol/ Ipratropium (Duoneb) 3 ml Q2H RESP THERAPY PRN HHN SHORTNESS OF BREATH Last administered on 05/29/18 18:47; Admin Dose 3 ML; Start 05/29/18 at 06:30 Diagnostic Test (Pha) (Accu-Chek) 1 ea 02 XX Last administered on 05/30/18 02:00; Admin Dose 1 EA; Start 05/30/18 at 02:00 Insulin Aspart (Novolog Insulin Pen) 11 unit WITH MEALS SC Last administered on 05/30/18 08:26; Admin Dose 11 UNIT; Start 05/29/18 at 17:35 Insulin Aspart (Novolog Insulin Pen) NOVOLOG *MILD* ALGORITHM WITH MEALS BEDTIME SC Last administered on 05/30/18 08:27; Admin Dose 1 UNIT; Start 05/29/18 at 17:35 Insulin Glargine (Lantus) 32 units DAILY@2000 SC ; Start 05/30/18 at 20:00 Morphine Sulfate (morphine) 3 mg Q4H PRN IV PAIN LEVEL 7-10 Last administered on 05/30/18 06:28; Admin Dose 3 MG; Start 05/29/18 at 18:00 Lorazepam (Ativan) 1 mg TID PRN PO PANIC ATTACK Last administered on 05/30/18 01:48; Admin Dose 1 MG; Start 05/29/18 at 19:00 Acetaminophen/ Hydrocodone Bitart ([place] (10/325)) 1 tab Q6H PRN PO MODERATE PAIN LEVEL 4-6 Last administered on 05/30/18 05:19; Admin Dose 1 TAB; Start 05/30/18 at 05:30 Assessment/Plan Hospital Course (Demo Recall) Assessment 1. Status post acute hypoxemic and hypercapnic respiratory failure likely secondary to volume overload. Chest x-ray currently shows no significant infiltrates or effusions 2. Likely underlying obstructive sleep apnea 3. Probable diastolic dysfunction 4. Obstructive sleep apnea Plan 1. Encourage nocturnal noninvasive positive pressure ventilation 2. Encourage out of bed 3. Continue hemodialysis with volume removal 4. Outpatient sleep study and pulmonary function testing Stable for transfer to [facility] from pulmonary standpoint Critical care time 40 minutes. VADGAMA,BHAVANA V. MD, [facility] May 30, 2018 09:09
--- NOTE | 2018-05-30 12:01 | PN ---
Date/Time of Note Date/Time of Note DATE: 05/30/18 TIME: 11:57 Assessment/Plan VTE Prophylaxis Risk score (from Ns)>0 risk: 7 SCD applied (from Ns): Yes Pharmacological prophylaxis: heparin Lines/Catheters IV Catheter Type (from Nrs): Central Line Central line still needed: Yes Urinary Cath still in place: Yes Reason Cath still needed: urinary retention Assessment/Plan Hospital Course Patient continues on nasal cannula without distress, awake alert, undergoing hemodialysis, blood sugar is adequately controlled, stable to transfer to telemetry floor. Assessment/Plan -Acute respiratory failure requiring intubation most likely secondary to fluid overload and CHF exacerbation, patient is self extubated currently on supplemental oxygen via nasal cannula. -Systolic and diastolic congestive heart failure, continue to remove fluids with hemodialysis, cardiology consult. -Coronary artery disease -AICD -Hemodialysis dependent end-stage renal disease. Dr. Martin is following in nephrology consultation. -Diabetes mellitus type 2 with hemoglobin A1c of 9.1. Continue Lantus and pre- meal NovoLog. -COPD -Pancreatitis, resolved -Obesity with BMI of 39.3 Critical care time spent is 30 minutes. Further recommendations based on clinical course. Plan of care discussed with Dr. Scanlon. Result Diagram: 05/30/18 0530 05/30/18 0530 Results 24hrs Laboratory Tests Test 05/29/18 12:34 05/29/18 17:35 05/29/18 18:38 05/29/18 21:57 Bedside Glucose 391 H 306 H 291 H 162 Test 05/30/18 05:27 05/30/18 05:30 05/30/18 08:23 05/30/18 11:11 Bedside Glucose 179 176 116 White Blood Count 9.6 Red Blood Count 3.59 L Hemoglobin 11.1 L Hematocrit 36.0 L Mean Corpuscular 100.3 Volume Mean Corpuscular 30.9 Hemoglobin Mean Corpuscular 30.8 L Hemoglobin Concent Red Cell 14.6 H Distribution Width Platelet Count 245 Mean Platelet Volume 11.0 H Immature 0.400 Granulocytes % Neutrophils % 89.6 H Lymphocytes % 6.5 L Monocytes % 3.2 Eosinophils % 0.1 Basophils % 0.2 Nucleated Red Blood 0.0 Cells % Immature 0.040 H Granulocytes # Neutrophils # 8.6 H Lymphocytes # 0.6 L Monocytes # 0.3 Eosinophils # 0.0 Basophils # 0.0 Nucleated Red Blood 0.0 Cells # Sodium Level 143 Potassium Level 4.9 Chloride Level 100 Carbon Dioxide Level 30 Anion Gap 13 Blood Urea Nitrogen 83 H Creatinine 3.44 H Est Glomerular 18 L Filtrat Rate mL/min Glucose Level 196 Calcium Level 9.1 Exam/Review of Systems Exam Vitals Vital Signs Date Temp Pulse Resp B/P (MAP) Pulse Ox O2 O2 Flow FiO2 Time Delivery Rate 05/30/18 82 11:10 05/30/18 139/68 97 Nasal 2.0 10:00 (91) Cannula 05/30/18 98.6 09:00 05/29/18 32 18:21 Intake and Output 05/29/18 05/29/18 05/30/18 1414:59 22:59 06:59 IntakeIntake Total 0 ml 530 ml 240 ml OutputOutput Total 375 ml 670 ml 220 ml BalanceBalance -375 ml -140 ml 20 ml Exam Constitutional: alert, oriented, obese Respiratory: diminished breath sounds Cardiovascular: regular rate and rhythm, other (Right chest AICD) Gastrointestinal: soft, non-tender Musculoskeletal: nl extremities to inspection Extremities: normal pulses, other (Status post partial left foot amputation, le ft upper extremity AV fistula) Neurological: nl mental status Results Results 24hrs Laboratory Tests Test 05/29/18 12:34 05/29/18 17:35 05/29/18 18:38 05/29/18 21:57 Bedside Glucose 391 H 306 H 291 H 162 Test 05/30/18 05:27 05/30/18 05:30 05/30/18 08:23 05/30/18 11:11 Bedside Glucose 179 176 116 White Blood Count 9.6 Red Blood Count 3.59 L Hemoglobin 11.1 L Hematocrit 36.0 L Mean Corpuscular 100.3 Volume Mean Corpuscular 30.9 Hemoglobin Mean Corpuscular 30.8 L Hemoglobin Concent Red Cell 14.6 H Distribution Width Platelet Count 245 Mean Platelet Volume 11.0 H Immature 0.400 Granulocytes % Neutrophils % 89.6 H Lymphocytes % 6.5 L Monocytes % 3.2 Eosinophils % 0.1 Basophils % 0.2 Nucleated Red Blood 0.0 Cells % Immature 0.040 H Granulocytes # Neutrophils # 8.6 H Lymphocytes # 0.6 L Monocytes # 0.3 Eosinophils # 0.0 Basophils # 0.0 Nucleated Red Blood 0.0 Cells # Sodium Level 143 Potassium Level 4.9 Chloride Level 100 Carbon Dioxide Level 30 Anion Gap 13 Blood Urea Nitrogen 83 H Creatinine 3.44 H Est Glomerular 18 L Filtrat Rate mL/min Glucose Level 196 Calcium Level 9.1 Medications Medication Current Medications Ondansetron HCl (Zofran Inj) 4 mg Q6H PRN IV NAUSEA AND/OR VOMITING; Start 05/28/18 at 01:30 Famotidine (Pepcid Iv) 20 mg DAILY IV Last administered on 05/30/18at 08:21; Admin Dose 20 MG; Start 05/28/18 at 09:00 Heparin Sodium (Porcine) (Heparin (5000 Units/1ml)) 5,000 unit Q8 SC Last adm inistered on 05/30/18at 05:35; Admin Dose 5,000 UNIT; Start 05/28/18 at 06:00 Methylprednisolone Sodium Succinate (Solu-Medrol) 40 mg Q8 IV Last administered on 05/30/18at 05:20; Admin Dose 40 MG; Start 05/28/18 at 10:00 Miscellaneous Information 1 ea NOTE XX ; Start 05/28/18 at 13:00 Glucose (Glutose) 15 gm Q15M PRN PO DECREASED GLUCOSE; Start 05/28/18 at 13:00 Glucose (Glutose) 22.5 gm Q15M PRN PO DECREASED GLUCOSE; Start 05/28/18 at 13:00 Dextrose (D50w Syringe) 25 ml Q15M PRN IV DECREASED GLUCOSE; Start 05/28/18 at 13:00 Dextrose (D50w Syringe) 50 ml Q15M PRN IV DECREASED GLUCOSE; Start 05/28/18 at 13:00 Glucagon (Glucagen) 1 mg Q15M PRN IM DECREASED GLUCOSE; Start 05/28/18 at 13:00 Glucose (Glutose) 15 gm Q15M PRN BUCCAL DECREASED GLUCOSE; Start 05/28/18 at 13:00 Albuterol/ Ipratropium (Duoneb) 3 ml Q6H RESP THERAPY HHN Last administered on 05/30/18at 08:00; Admin Dose 3 ML; Start 05/29/18 at 08:00 Albuterol/ Ipratropium (Duoneb) 3 ml Q2H RESP THERAPY PRN HHN SHORTNESS OF B REATH Last administered on 05/29/18at 18:47; Admin Dose 3 ML; Start 05/29/18 at 06:30 Diagnostic Test (Pha) (Accu-Chek) 1 ea 02 XX Last administered on 05/30/18 02:00; Admin Dose 1 EA; Start 05/30/18 at 02:00 Insulin Aspart (Novolog Insulin Pen) 11 unit WITH MEALS SC Last administered on 05/30/18 11:16; Admin Dose 11 UNIT; Start 05/29/18 at 17:35 Insulin Aspart (Novolog Insulin Pen) NOVOLOG *MILD* ALGORITHM WITH MEALS BEDTIME SC Last administered on 05/30/18 08:27; Admin Dose 1 UNIT; Start 05/29/18 at 17:35 Insulin Glargine (Lantus) 32 units DAILY@2000 SC ; Start 05/30/18 at 20:00 Morphine Sulfate (morphine) 3 mg Q4H PRN IV PAIN LEVEL 7-10 Last administered on 05/30/18 06:28; Admin Dose 3 MG; Start 05/29/18 at 18:00 Lorazepam (Ativan) 1 mg TID PRN PO PANIC ATTACK Last administered on 05/30/18 01:48; Admin Dose 1 MG; Start 05/29/18 at 19:00 Acetaminophen/ Hydrocodone Bitart ([place] (10/325)) 1 tab Q6H PRN PO MODERATE PAIN LEVEL 4-6 Last administered on 05/30/18 05:19; Admin Dose 1 TAB; Start 05/30/18 at 05:30 AIDEN LYLE May 30, 2018 12:01
[2018-05-30] MEDS ORDERED: ZOLPIDEM 5 MG TAB PO PRN (12:30)
--- NOTE | 2018-05-30 16:14 | CONS ---
DATE OF ADMISSION: 05/28/2018 DATE OF CONSULTATION: 05/30/2018 REASON FOR CONSULTATION: Congestive heart failure. REQUESTING PHYSICIAN: Kennedy Mccullough MD HISTORY OF PRESENT ILLNESS: Mr. Quiroz is a 63-year-old male with history of COPD and endstage ed al disease on hemodialysis, CHF, dyslipidemia, diabetes mellitus, cardiomyopathy with a 3+ left ventr icular ejection fraction approximately 20% to 25% prior ICD, COPD, PAD, who presented with shortness of breath. The patient initially required intubation and yesterday self-extubated himself. The wayne ent remains in the ICU with mild shortness of breath. Denies chest pain. PAST MEDICAL HISTORY: As above in HPI. MEDICATIONS CURRENTLY IN HOSPITAL: 1. Aspirin 81 mg daily. 2. Plavix 75 mg daily. 3. Cymbalta 60 mg daily. 4. TriCor 140 mg daily. 5. Protonix 40 mg daily. 6. Lipitor . 7. Colace 100 mg b.i.d. 8. Lyrica. 9. Lantus. 10. Carvedilol 12.5 mg p.o. daily. 11. [place]. 12. Ativan. 13. Insulin. 14. DuoNeb. 15. Pepcid. 16. Heparin 5000 subcu q.8. ALLERGIES: No known drug allergies. SOCIAL HISTORY: No current tobacco, ETOH or illicit drug use. FAMILY HISTORY: No sudden cardiac or early CAD. REVIEW OF SYSTEMS: As above in HPI. CONSTITUTIONAL: No fevers, chills. PULMONARY: Shortness of breath. CARDIOVASCULAR: Congestive heart failure, cardiomyopathy. GASTROINTESTINAL: No vomiting. GENITOURINARY: No hematuria. MUSCULOSKELETAL: Degenerative joint disease. PSYCHIATRIC: The patient has depression. NEUROLOGIC: No documented history of CVA. ENDOCRINE: Diabetes mellitus. PHYSICAL EXAMINATION: VITAL SIGNS: Temperature of 97.6, blood pressure 134/55, pulse 90, respiration 16,, saturating 98% o n room air. GENERAL: The patient is alert, awake, claims mild shortness breath. NECK: JVP approximately 9 cm of water. CHEST: Fair movement throughout, mild decreased breath sounds at bases bilaterally. HEART: Regular rate and rhythm. Normal S1, increased S2, I/ systolic murmur, nondisplaced PMI. ABDOMEN: Positive bowel sounds, soft. EXTREMITIES: No significant pitting edema, 1+ pulses bilateral posterior tibial. LABORATORY DATA: Most recently from today, sodium 143, potassium 4.9, creatinine of 3.44, BUN 83. W jay jay blood count 9.6 and hemoglobin 1.1, platelet count 245. ABG with a pH of 7.35, PaO2 of 64, pCO2 of 50. IMAGING STUDIES: Chest x-ray, most recently from the revealing interstitial edema suggesting ca rdiopulmonary congestion and bibasilar atelectasis. ELECTROCARDIOGRAM: Initially revealed sinus rhythm, no axis, reveals lateral T-wave inversions. IMPRESSION: 1. Congestive heart failure exacerbation, systolic, acute on chronic. 2. Cardiomyopathy with severely depressed left ventricular ejection fraction less than 25 to 30% by echo 03/2018. 3. Hypertension. 4. Respiratory failure, improved, status post self-extubation. 5. Chronic obstructive pulmonary disease. 6. Dyslipidemia. 7. Diabetes mellitus. 8. End-stage renal disease on hemodialysis. RECOMMENDATIONS: 1. At this time, would maintain patient on close monitoring. Telemetry is okay at this time. 2. Would continue to trend the patient's cardiac enzymes, assess for any significant ongoing cardiac damage. 3. Continue the patient's aspirin and Plavix at this time. 4. Continue the patient's baseline beta jessi. Will change to b.i.d. dosing given 1/2 life medica tion efficacy. 5. Will start patient on VLADIMIR inhibitor afterload reduction in the setting of systolic heart failure. 6. Hemodialysis aggressively for volume removal. 7. Continue the patient's TriCor status at this time, adjust it according to a fasting lipid panel. 8. Follow the patient's blood sugars closely. 9. Continue the patient's steroids and bronchodilators. 10. Follow the patient's respiratory status closely. Thank you for allowing me to take part in the care of this patient. I will continue to follow very c losely with you with further recommendations made as the patient progresses through his inpatient hos pital clinical course. Dictated By: ANDREI ANTONY/CHELO Conf#: [id number] DID#: [id number] CC: DANISH MCDERMOTT MD; KENNEDY MCCULLOUGH MD;*EndCC*
[2018-05-30] MEDS: SEVELAMER CARBONATE 0.8 GM PKT PO SCH (17:19)
[2018-05-30] MEDS ORDERED: INSULIN GLARGINE [LANTus] (100 UNITS/ML) SYG SC SCH (20:00)
[2018-05-30] MEDS ORDERED: ATORVASTATIN 80 MG TAB PO SCH (21:00)
[2018-05-30] MEDS ORDERED: PREGABALIN 25 MG CAP PO SCH (21:00)
[2018-05-30] MEDS: DOCUSATE SODIUM 250 MG CAP PO SCH (21:18)
[2018-05-30] MEDS: PREGABALIN 50 MG CAP PO SCH (21:18)
[2018-05-31] VITALS: PULSE 71
[2018-05-31] MEDS: ACCU-CHEK XX SCH (01:12)
[2018-05-31] MEDS: ALBUTEROL/IPRATROPIUM (NEB) 3 ML AMP HHN SCH (02:00)
[2018-05-31 03:35] VITALS: BP 150/69; PULSE 72; RESP 18
[2018-05-31 04:00] VITALS: PULSE 74
[2018-05-31] MEDS ORDERED: PANTOPRAZOLE (EC) 40 MG TAB PO SCH (06:00)
[2018-05-31] MEDS: METHYLPREDNISOLONE 40 MG INJ IV SCH (06:02)
[2018-05-31] MEDS: HEPARIN 5,000 UNIT/1 ML VIAL SC SCH (06:14)
[2018-05-31 07:09] VITALS: BP 156/72; PULSE 78; RESP 16
[2018-05-31] MEDS: INSULIN ASPART [NOVOLOG] 3 ML PEN SC SCH ×2 (07:55)
[2018-05-31 08:33] VITALS: PULSE 79
[2018-05-31] MEDS: DOCUSATE SODIUM 250 MG CAP PO SCH (08:44)
[2018-05-31] MEDS: PREGABALIN 50 MG CAP PO SCH (08:44)
[2018-05-31] MEDS: LORAZEPAM 1 MG TAB PO PRN (08:44)
[2018-05-31] MEDS: FAMOTIDINE 20 MG INJ IV SCH (08:45)
[2018-05-31] MEDS: SEVELAMER CARBONATE 0.8 GM PKT PO SCH (08:46)
[2018-05-31] MEDS ORDERED: CLOPIDOGREL 75 MG TAB PO SCH (09:00)
[2018-05-31] MEDS ORDERED: BENAZEPRIL 10 MG TAB PO SCH (09:00)
[2018-05-31] MEDS ORDERED: FENOFIBRATE 145 MG TAB PO SCH (09:00)
[2018-05-31] MEDS ORDERED: ASPIRIN (EC) 81 MG TAB PO SCH (09:00)
[2018-05-31] MEDS ORDERED: DULOXETINE 30 MG CAP DR PO SCH (09:00)
--- NOTE | 2018-05-31 09:54 | CONS ---
Assessment/Plan Assessment/Plan Assessment/Plan (Daily) 1. CKD, next HD tomm 2. CHF resolved 3. BP control has improved Consultation Date/Type/Reason Admit Date/Time May 28, 2018 at 01:22 Initial Consult Date Date/Time of Note DATE: 05/31/18 TIME: 09:53 Detailed Summary Respiratory: No cough, No shortness of breath Cardiovascular: No chest pain, No orthopenea Gastrointestinal: no complaints Exam/Review of Systems Exam Vitals Vital Signs Date Temp Pulse Resp B/P (MAP) Pulse Ox O2 O2 Flow FiO2 Time Delivery Rate 05/31/18 79 08:33 05/31/18 97.6 16 156/72 95 07:09 (100) 05/31/18 Nasal 03:35 Cannula 05/30/18 2.0 23:30 05/30/18 27 21:28 Intake and Output 05/30/18 05/30/18 05/31/18 1515:00 23:00 07:00 IntakeIntake Total 240 ml 360 ml 850 ml OutputOutput Total 3950 ml 55 ml 300 ml BalanceBalance -3710 ml 305 ml 550 ml Neck: No jvd Respiratory: clear to auscultation Cardiovascular: regular rate and rhythm Gastrointestinal: No soft Extremities: No edema Results Result Diagram: 05/31/18 0559 05/31/18 0559 Results 24hrs Laboratory Tests Test 05/30/18 11:11 05/30/18 17:18 05/30/18 18:44 05/30/18 21:21 Bedside Glucose 116 125 108 Creatine Kinase 162 Creatine Kinase 1.5 Index Creatinine Kinase MB 2.50 H (Mass) Troponin I 1.240 *H Test 05/31/18 00:34 05/31/18 05:59 05/31/18 08:03 Creatine Kinase 140 142 Creatine Kinase 1.7 1.5 Index Creatinine Kinase MB 2.31 2.19 (Mass) Troponin I 1.030 *H 0.896 *H White Blood Count 10.2 Red Blood Count 4.17 L Hemoglobin 12.8 L Hematocrit 41.1 L Mean Corpuscular 98.6 Volume Mean Corpuscular 30.7 Hemoglobin Mean Corpuscular 31.1 L Hemoglobin Concent Red Cell 14.4 Distribution Width Platelet Count 275 Mean Platelet Volume 10.8 H Immature 0.400 Granulocytes % Neutrophils % 85.9 H Lymphocytes % 8.8 L Monocytes % 4.7 Eosinophils % 0.0 Basophils % 0.2 Nucleated Red Blood 0.0 Cells % Immature 0.040 H Granulocytes # Neutrophils # 8.7 H Lymphocytes # 0.9 Monocytes # 0.5 Eosinophils # 0.0 Basophils # 0.0 Nucleated Red Blood 0.0 Cells # Sodium Level 141 Potassium Level 4.9 Chloride Level 97 Carbon Dioxide Level 27 Anion Gap 17 H Blood Urea Nitrogen 69 H Creatinine 3.26 H Est Glomerular 19 L Filtrat Rate mL/min Glucose Level 139 # Calcium Level 9.2 Magnesium Level 2.2 Triglycerides Level 297 H Cholesterol Level 228 H LDL Cholesterol, 114 Calculated HDL Cholesterol 55 Cholesterol/HDL 4.1 Ratio Bedside Glucose 156 Medications Medication Current Medications Ondansetron HCl (Zofran Inj) 4 mg Q6H PRN IV NAUSEA AND/OR VOMITING; Start 05/28/18 at 01:30 Famotidine (Pepcid Iv) 20 mg DAILY IV Last administered on 05/31/18at 08:45; Admin Dose 20 MG; Start 05/28/18 at 09:00 Heparin Sodium (Porcine) (Heparin (5000 Units/1ml)) 5,000 unit Q8 SC Last administered on 05/31/18at 06:14; Admin Dose 5,000 UNIT; Start 05/28/18 at 06:00 Methylprednisolone Sodium Succinate (Solu-Medrol) 40 mg Q8 IV Last administered on 05/31/18at 06:02; Admin Dose 40 MG; Start 05/28/18 at 10:00 Miscellaneous Information 1 ea NOTE XX ; Start 05/28/18 at 13:00 Glucose (Glutose) 15 gm Q15M PRN PO DECREASED GLUCOSE; Start 05/28/18 at 13:00 Glucose (Glutose) 22.5 gm Q15M PRN PO DECREASED GLUCOSE; Start 05/28/18 at 13:00 Dextrose (D50w Syringe) 25 ml Q15M PRN IV DECREASED GLUCOSE; Start 05/28/18 at 13:00 Dextrose (D50w Syringe) 50 ml Q15M PRN IV DECREASED GLUCOSE; Start 05/28/18 at 13:00 Glucagon (Glucagen) 1 mg Q15M PRN IM DECREASED GLUCOSE; Start 05/28/18 at 13:00 Glucose (Glutose) 15 gm Q15M PRN BUCCAL DECREASED GLUCOSE; Start 05/28/18 at 13:00 Albuterol/ Ipratropium (Duoneb) 3 ml Q6H RESP THERAPY HHN Last administered on 05/30/18 20:50; Admin Dose 3 ML; Start 05/29/18 at 08:00 Albuterol/ Ipratropium (Duoneb) 3 ml Q2H RESP THERAPY PRN HHN SHORTNESS OF KIMI TH Last administered on 05/29/18 18:47; Admin Dose 3 ML; Start 05/29/18 at 06:30 Diagnostic Test (Pha) (Accu-Chek) 1 ea 02 XX Last administered on 05/30/18 02:00; Admin Dose 1 EA; Start 05/30/18 at 02:00 Insulin Aspart (Novolog Insulin Pen) 11 unit WITH MEALS SC Last administered on 05/30/18 17:20; Admin Dose 11 UNIT; Start 05/29/18 at 17:35 Insulin Aspart (Novolog Insulin Pen) NOVOLOG *MILD* ALGORITHM WITH MEALS BEDTIME SC Last administered on 05/30/18 08:27; Admin Dose 1 UNIT; Start 05/29/18 at 17:35 Insulin Glargine (Lantus) 32 units DAILY@2000 SC Last administered on 05/30/18 21:23; Admin Dose 32 UNITS; Start 05/30/18 at 20:00 Morphine Sulfate (morphine) 3 mg Q4H PRN IV PAIN LEVEL 7-10 Last administered on 05/30/18 17:14; Admin Dose 3 MG; Start 05/29/18 at 18:00 Lorazepam (Ativan) 1 mg TID PRN PO PANIC ATTACK Last administered on 05/31/18 08:44; Admin Dose 1 MG; Start 05/29/18 at 19:00 Acetaminophen/ Hydrocodone Bitart ([place] (10/325)) 1 tab Q6H PRN PO MODERATE PAIN LEVEL 4-6 Last administered on 05/30/18 05:19; Admin Dose 1 TAB; Start 05/30/18 at 05:30 Aspirin (Halfprin) 81 mg DAILY PO Last administered on 05/31/18 08:44; Admin Dose 81 MG; Start 05/31/18 at 09:00 Atorvastatin Calcium (Lipitor) 80 mg QHS PO Last administered on 05/30/18 21:18; Admin Dose 80 MG; Start 05/30/18 at 21:00 Clopidogrel Bisulfate (plaVIX) 75 mg DAILY PO Last administered on 05/31/18 08:44; Admin Dose 75 MG; Start 05/31/18 at 09:00 Docusate Sodium (Colace) 250 mg BID PO Last administered on 05/31/18 08:44; Admin Dose 250 MG; Start 05/30/18 at 21:00 Duloxetine HCl (Cymbalta) 60 mg DAILY PO Last administered on 05/31/18 08:44; Admin Dose 60 MG; Start 05/31/18 at 09:00 Fenofibrate (Tricor) 145 mg DAILY PO Last administered on 05/31/18 08:43; Admin Dose 145 MG; Start 05/31/18 at 09:00 Sevelamer Carbonate (Renvela) 1.6 gm WITH MEALS PO Last administered on 9at 08:46; Admin Dose 1.6 GM; Start 05/30/18 at 17:35 Zolpidem Tartrate (Ambien) 10 mg QHS PRN PO INSOMNIA Last administered on 05/31/18 02:44; Admin Dose 10 MG; Start 05/30/18 at 12:30 Pantoprazole (Protonix Tab) 40 mg DAILY@06 PO Last administered on 05/31/18 06:02; Admin Dose 40 MG; Start 05/31/18 at 06:00 Pregabalin (Lyrica) 50 mg BID PO Last administered on 05/31/18 08:44; Admin Dose 50 MG; Start 05/30/18 at 21:00 Carvedilol (Coreg) 12.5 mg BID PO Last administered on 05/31/18 08:45; Admin Dose 12.5 MG; Start 05/30/18 at 21:00 Benazepril HCl (Lotensin) 10 mg DAILY PO Last administered on 05/31/18 08:45; Admin Dose 10 MG; Start 05/31/18 at 09:00 SALBADOR SHIRLEY MD May 31, 2018 09:54
--- NOTE | 2018-05-31 16:04 | RADRPT ---
Vent Rate: 77 bpm RR Interval: 0 msec AL Interval: 134 msec QRS Duration: 112 msec QT Interval: 400 msec QTC Interval: 452 msec P-R-T [place]: 62 - 66 - 0 degrees Normal sinus rhythm Left ventricular hypertrophy with repolarization abnormality Abnormal ECG Electronically Signed By: Chencho Hendrix
--- NOTE | 2018-05-31 23:49 | DS ---
Date/Time of Note Date/Time of Note DATE: 05/31/18 TIME: 23:48 Discharge Summary Admission/Discharge Info Admit Date/Time May 28, 2018 at 01:22 Discharge Date/Time May 31, 2018 at 10:55 Hx of Present Illness Patient with diabetes, congestive heart failure, renal failure comes in from SNF for increased generalized swelling. Patient was evaluated in the emergency room and found to have respiratory distress and had to be intubated. Hospital Course Pt left AMA -Acute respiratory failure requiring intubation most likely secondary to fluid overload and CHF exacerbation, patient is self extubated currently on supplemen ricardo oxygen via nasal cannula. -Systolic and diastolic congestive heart failure, continue to remove fluids with hemodialysis, cardiology consult. -Coronary artery disease -AICD -Hemodialysis dependent end-stage renal disease. Dr. Martin is following in n ephrology consultation. -Diabetes mellitus type 2 with hemoglobin A1c of 9.1. Continue Lantus and pre- meal NovoLog. -COPD -Pancreatitis, resolved -Obesity with BMI of 39.3 Plan of care discussed with Dr. Scanlon. Home Meds Reported Medications Furosemide* (Furosemide*) 80 Mg Tablet, 80 MG PO BID, #60 TAB 04/19/18 Pregabalin* (Lyrica*) 50 Mg Capsule, 50 MG PO BID, CAP 03/05/18 Omeprazole* (Omeprazole*) 40 Mg Capsule.dr, 40 MG PO DAILY, #30 CAP 03/05/18 Zolpidem Tartrate* (Ambien*) 10 Mg Tablet, 10 MG PO QHS PRN for INSOMNIA, TAB 03/05/18 Tamsulosin Hcl* (Tamsulosin Hcl*) 0.4 Mg Cap.er.24h, 0.4 MG PO HS, CAP 03/05/18 Sevelamer Carbonate* (Renvela*) 800 Mg Tablet, 1.6 GM PO WITH MEALS, TAB 03/05/18 Metoprolol Succinate* (Toprol XL*) 50 Mg Tab.er.24h, 50 MG PO DAILY, #30 TAB 03/05/18 Insulin Degludec (Tresiba Flextouch U-100) 100 Unit/1 Ml Insuln.pen, 40 UNIT SQ QHS 03/05/18 Insulin Aspart* (Novolog Insulin Pen*) 100 Unit/Ml Soln, 12 UNIT SC WITH MEALS, EA 12/16/18 Fenofibrate Nanocrystallized* (Fenofibrate*) 145 Mg Tablet, 145 MG PO DAILY, TAB 03/05/18 Esomeprazole Mag Trihydrate (Nexium) 40 Mg Capsule.dr, 40 MG PO DAILY, #30 CAP 03/05/18 Duloxetine Hcl* (Cymbalta*) 60 Mg Capsule.dr, 60 MG PO DAILY, CAP 03/05/18 Docusate Sodium* (Colace*) 250 Mg Capsule, 250 MG PO BID, #60 CAP 18 Cyclobenzaprine Hcl* (Cyclobenzaprine Hcl*) 10 Mg Tablet, 10 MG PO Q6H, #60 TAB 03/05/18 Clopidogrel Bisulfate (Clopidogrel) 75 Mg Tablet, 75 MG PO DAILY, #30 TAB 18 Carvedilol* (Carvedilol*) 12.5 Mg Tablet, 12.5 MG PO DAILY, #60 TAB 03/05/18 Atorvastatin* (Atorvastatin*) 80 Mg Tablet, 80 MG PO QHS, #30 TAB 18 Aspirin* (Aspirin* EC) 81 Mg Tablet.dr, 81 MG PO DAILY, TAB 03/05/18 Apixaban* (Eliquis*) 2.5 Mg Tablet, 2.5 MG PO BID, TAB 03/05/18 Primary Care Provider Marciano Chong MD Pending Labs Laboratory Tests Test 05/31/18 00:34 05/31/18 05:59 05/31/18 08:03 Creatine Kinase 140 IU/L (23-200) 142 IU/L (23-200) Creatine Kinase 1.7 1.5 Index Creatinine Kinase 2.31 2.19 MB (Mass) ng/ml (0.0-2.4) ng/ml (0.0-2.4) Troponin I 1.030 0.896 ng/ml (0.000-0.120) ng/ml (0.000-0.120 ) White Blood Count 10.2 10^3/ul (4.8-10.8) Red Blood Count 4.17 10^6/ul (4.70-6.10 ) Hemoglobin 12.8 g/dl (14.0-18.0) Hematocrit 41.1 % (42.0-52.0) Mean Corpuscular 98.6 Volume fl (82.0-101.0) Mean Corpuscular 30.7 Hemoglobin pg (29.0-33.0) Mean Corpuscular 31.1 Hemoglobin Concent g/dl (32.0-37.0) Red Cell 14.4 % (11.5-14.5) Distribution Width Platelet Count 275 10^3/UL (140-415) Mean Platelet 10.8 fl (7.4-10.4) Volume Immature 0.400 Granulocytes % % (0.001-0.429) Neutrophils % 85.9 % (39.0-77.0) Lymphocytes % 8.8 % (15.0-51.0) Monocytes % 4.7 % (0.0-11.0) Eosinophils % 0.0 % (0.0-7.0) Basophils % 0.2 % (0.0-2.0) Nucleated Red Blood 0.0 Cells % /100WBC (0.0-0.0) Immature 0.040 Granulocytes # 10^3/ul (0.0-0.031 ) Neutrophils # 8.7 10^3/ul (1.6-7.5) Lymphocytes # 0.9 10^3/ul (0.8-2.9) Monocytes # 0.5 10^3/ul (0.3-0.9) Eosinophils # 0.0 10^3/ul (0.0-0.5) Basophils # 0.0 10^3/ul (0.0-0.1) Nucleated Red Blood 0.0 Cells # 10^3/ul (0.0-0.0) Sodium Level 141 mmol/L (135-144) Potassium Level 4.9 mmol/L (3.5-5.1) Chloride Level 97 mmol/L (97-110) Carbon Dioxide 27 mmol/L (21-31) Level Anion Gap 17 (5-13) Blood Urea 69 mg/dl (7-20) Nitrogen Creatinine 3.26 mg/dl (0.61-1.24) Est Glomerular 19 mL/min (>60) Filtrat Rate mL/min Glucose Level 139 mg/dl (70-220) Calcium Level 9.2 mg/dl (8.4-10.2) Magnesium Level 2.2 mg/dl (1.7-2.5) Triglycerides 297 mg/dl (0-149) Level Cholesterol Level 228 mg/dl (100-200) LDL Cholesterol, 114 mg/dl Calculated HDL Cholesterol 55 mg/dl (30-78) Cholesterol/HDL 4.1 RATIO Ratio Bedside Glucose 156 mg/dL (70-220) AIDEN LYLE May 31, 2018 23:49
== END 2018-05-31 10:55 | disposition left against medical advice (07) | DRG 208 ==
LOC: E/R 00:42 → ICU 01:22 → TEL 05-30 23:07
PROVIDERS: ADMIT Internal Medicine; ATTEND Internal Medicine
PROC: 0BH18EZ Insertion of Endotracheal Airway into Trachea, Via Natural or Artificial Opening Endoscopic (ICD-10-PCS; principal; 2018-05-28)
PROC: 5A1945Z Respiratory Ventilation, 24-96 Consecutive Hours (ICD-10-PCS; 2018-05-28)
PROC: 02HV33Z Insertion of Infusion Device into Superior Vena Cava, Percutaneous Approach (ICD-10-PCS; 2018-05-28)
PROC: 5A1D70Z Performance of Urinary Filtration, Intermittent, Less than 6 Hours Per Day (ICD-10-PCS; 2018-05-28)
DX: J96.01 Acute respiratory failure with hypoxia (principal); N18.6 End stage renal disease; I50.43 Acute on chronic combined systolic (congestive) and diastolic (congestive) heart failure; K85.90 Acute pancreatitis without necrosis or infection, unspecified; I13.2 Hypertensive heart and chronic kidney disease with heart failure and with stage 5 chronic kidney disease, or end stage renal disease; I42.9 Cardiomyopathy, unspecified; J96.02 Acute respiratory failure with hypercapnia; E11.22 Type 2 diabetes mellitus with diabetic chronic kidney disease; J44.9 Chronic obstructive pulmonary disease, unspecified; D63.1 Anemia in chronic kidney disease; I25.10 Atherosclerotic heart disease of native coronary artery without angina pectoris; E66.9 Obesity, unspecified; G47.33 Obstructive sleep apnea (adult) (pediatric); E78.5 Hyperlipidemia, unspecified; Z99.2 Dependence on renal dialysis; Z68.39 Body mass index [BMI] 39.0-39.9, adult; Z95.810 Presence of automatic (implantable) cardiac defibrillator
CPT/HCPCS: 31500; 36415; 36600; 71045; 80048; 80053; 80061; 82550; 82553; 82803; 82962; 83036; 83690; 83735; 84100; 84484; 85025; 85610; 85730; 87081; 87340; 90935; 92526; 92610; 93005; 94002; 94003; 94640; 94644; 94664; 94770; J0696; J1644; J1815; J1940; J1956; J2250; J2270; J2920; J2930; J3010; P9047

== ENCOUNTER 2018-06-11 18:52 | Inpatient (IN) | payer MEDICARE, OTHER ==
[~2018-06-11] VITALS: Ht 160 cm; Wt 99.1 kg
[2018-06-11] MEDS ORDERED: PIPER-TAZO 3.375 GM IV (PMX) 100 ML IVPB STA (19:59)
[2018-06-11] MEDS ORDERED: VANCOMYCIN 1 GM (PMX) 250 ML IVPB STA (19:59)
[2018-06-11] MEDS ORDERED: ONDANSETRON 4 MG INJ IV PRN (23:00)
[2018-06-11] MEDS ORDERED: ACETAMINOPHEN 325 MG TAB PO PRN (23:00)
[2018-06-11] MEDS ORDERED: morphine 4 MG/ML VIAL IV STA (23:14)
[2018-06-12] VITALS (19 sets, daily range): BP systolic 99–174; BP diastolic 34–74; PULSE 78–92; RESP 18–20; Ht 160 cm; Wt 99.1 kg
--- NOTE | 2018-06-12 00:20 | ERD ---
ER Documentation Chief Complaint Chief Complaint LEFT FOOT POSSIBLE BURN, BLEEDING SCAB NOTED, ABDOMEN DISTENDED HPI 63-year-old male with a history of peripheral arterial disease, coronary artery disease, diabetes and peripheral neuropathy presenting with complaints of left foot wound with redness spreading up his left leg. Per the patient he was frying potatoes a few days ago. He did notice that some of the oil had splattered outside of the [place], however he did not know that he got that while on his feet as he is unable to feel anything in his feet. His family member noticed that he had this ulcer on his foot. Starting today, he started having redness above the area of the ulcer spreading up the anterior portion of his left leg. He denies any fevers or chills. He denies any associated pain. ROS All systems reviewed and are negative except as per history of present illness. Medications Home Meds Reported Medications Furosemide* (Furosemide*) 80 Mg Tablet, 80 MG PO BID, #60 TAB 04/19/18 Pregabalin* (Lyrica*) 50 Mg Capsule, 50 MG PO BID, CAP 03/05/18 Omeprazole* (Omeprazole*) 40 Mg Capsule.dr, 40 MG PO DAILY, #30 CAP 03/05/18 Zolpidem Tartrate* (Ambien*) 10 Mg Tablet, 10 MG PO QHS PRN for INSOMNIA, TAB 03/05/18 Tamsulosin Hcl* (Tamsulosin Hcl*) 0.4 Mg Cap.er.24h, 0.4 MG PO HS, CAP 03/05/18 Sevelamer Carbonate* (Renvela*) 800 Mg Tablet, 1.6 GM PO WITH MEALS, TAB 03/05/18 Metoprolol Succinate* (Toprol XL*) 50 Mg Tab.er.24h, 50 MG PO DAILY, #30 TAB 03/05/18 Insulin Degludec (Tresiba Flextouch U-100) 100 Unit/1 Ml Insuln.pen, 40 UNIT SQ QHS 03/05/18 Insulin Aspart* (Novolog Insulin Pen*) 100 Unit/Ml Soln, 12 UNIT SC WITH MEALS, EA 03/05/18 Fenofibrate Nanocrystallized* (Fenofibrate*) 145 Mg Tablet, 145 MG PO DAILY, TAB 03/05/18 Esomeprazole Mag Trihydrate (Nexium) 40 Mg Capsule.dr, 40 MG PO DAILY, #30 CAP 03/05/18 Duloxetine Hcl* (Cymbalta*) 60 Mg Capsule.dr, 60 MG PO DAILY, CAP 03/05/18 Docusate Sodium* (Colace*) 250 Mg Capsule, 250 MG PO BID, #60 CAP 18 Cyclobenzaprine Hcl* (Cyclobenzaprine Hcl*) 10 Mg Tablet, 10 MG PO Q6H, #60 TAB 03/05/18 Clopidogrel Bisulfate (Clopidogrel) 75 Mg Tablet, 75 MG PO DAILY, #30 TAB 03/05/18 Carvedilol* (Carvedilol*) 12.5 Mg Tablet, 12.5 MG PO DAILY, #60 TAB 03/05/18 Atorvastatin* (Atorvastatin*) 80 Mg Tablet, 80 MG PO QHS, #30 TAB 03/05/18 Aspirin* (Aspirin* EC) 81 Mg Tablet.dr, 81 MG PO DAILY, TAB 03/05/18 Apixaban* (Eliquis*) 2.5 Mg Tablet, 2.5 MG PO BID, TAB 03/05/18 Allergies Allergies: Coded Allergies: No Known Allergies (Unverified Allergy, Mild, 04/19/18) PMhx/Soc History of Surgery: Yes (Lower extremity bypass surgeries bilaterally, right foot partial amputation) Anesthesia Reaction: No Hx Neurological Disorder: No Hx Respiratory Disorders: Yes (asthma) Hx Cardiac Disorders: Yes (CAD, NC, pacemaker, peripheral arterial disease) Hx Psychiatric Problems: No Hx Miscellaneous Medical Probl: Yes (Diabetes with diabetic neuropathy, CKD on hemodialysis) Hx Alcohol Use: No Hx Substance Use: No Hx Tobacco Use: No Smoking Status: Never smoker FmHx Family History: diabetes Physical Exam Vitals Vital Signs Date Temp Pulse Resp B/P (MAP) Pulse Ox O2 O2 Flow FiO2 Time Delivery Rate 06/11/18 82 18 159/74 95 Room Air 22:00 (102) 06/11/18 98.5 77 19 148/50 97 Nasal 2.0 20:07 (82) Cannula 06/11/18 97.0 100 20 145/68 97 19:14 (93) Physical Exam Const: No acute distress, obese Head: Atraumatic Eyes: Normal Conjunctiva ENT: Normal External Ears, Nose and Mouth. Neck: Full range of motion. No meningismus. Resp: Clear to auscultation bilaterally Cardio: Regular rate and rhythm, no murmurs Abd: Soft, non tender, non distended. Normal bowel sounds Skin: Left dorsum of foot with large ulcer with granulation tissue. There is surrounding erythema that extends up to the anterior portion of his leg to his lee. No crepitus or dusky discoloration. 1+ DP and PT pulses. Foot warm to touch. Back: No midline or flank tenderness Ext: No cyanosis, or edema Neur: Awake and alert, no facial asymmetry, normal speech, moving all extremities spontaneously. Diminished sensation in bilateral feet Psych: Normal Mood and Affect Result Diagram: 06/11/18199906/11/181999 Results 24 hrs Laboratory Tests Test 06/11/18 20:00 White Blood Count 11.3 10^3/ul Red Blood Count 3.67 10^6/ul Hemoglobin 11.1 g/dl Hematocrit 36.3 % Mean Corpuscular Volume 98.9 fl Mean Corpuscular Hemoglobin 30.2 pg Mean Corpuscular Hemoglobin Concent 30.6 g/dl Red Cell Distribution Width 14.0 % Platelet Count 300 10^3/UL Mean Platelet Volume 10.7 fl Immature Granulocytes % 1.100 % Neutrophils % 82.5 % Lymphocytes % 9.2 % Monocytes % 4.9 % Eosinophils % 1.8 % Basophils % 0.5 % Nucleated Red Blood Cells % 0.0 /100WBC Immature Granulocytes # 0.130 10^3/ul Neutrophils # 9.3 10^3/ul Lymphocytes # 1.0 10^3/ul Monocytes # 0.6 10^3/ul Eosinophils # 0.2 10^3/ul Basophils # 0.1 10^3/ul Nucleated Red Blood Cells # 0.0 10^3/ul Prothrombin Time 12.0 Sec Prothrombin Time Ratio 0.9 INR International Normalized Ratio 0.88 Activated Partial Thromboplast Time 36.6 Sec Sodium Level 135 mmol/L Potassium Level 4.2 mmol/L Chloride Level 88 mmol/L Carbon Dioxide Level 33 mmol/L Anion Gap 14 Blood Urea Nitrogen 87 mg/dl Creatinine 3.91 mg/dl Est Glomerular Filtrat Rate mL/min 16 mL/min Glucose Level 504 mg/dl Lactic Acid Level 1.7 mmol/L Calcium Level 9.2 mg/dl Total Bilirubin 0.0 mg/dl Direct Bilirubin 0.00 mg/dl Indirect Bilirubin 0.0 mg/dl Aspartate Amino Transf (AST/SGOT) 21 IU/L Alanine Aminotransferase (ALT/SGPT) 21 IU/L Alkaline Phosphatase 117 IU/L Total Protein 7.7 g/dl Albumin 4.3 g/dl Globulin 3.40 g/dl Albumin/Globulin Ratio 1.26 Current Medications Medications Dose Sig/Rehana Start Time Status Last (Trade) Ordered Route PRN Stop Time Admin Dose Reason Admin Vancomycin 250 ml @ ONCE STAT 06/11/18 DC 06/11/18 HCl 125 mls/hr IVPB 19:59 19:59 06/11/18 21:58 Piperacillin 100 ml @ ONCE STAT 06/11/18 DC 06/11/18 Sod/ 200 mls/hr IVPB 19:59 20:23 Tazobactam 06/11/18 20:28 Sod Ondansetron 4 mg BRIDGE ORDER 06/11/18 HCl (Zofran PRN IV 23:00 Inj) NAUSEA/VOMITI 06/12/18 22:59 NG 650 mg ER BRIDGE 06/11/18 Acetaminophen PRN PO 23:00 (Tylenol .MILD PAIN 06/12/18 22:59 Tab) 1-3 OR TEMP Morphine 4 mg ONCE STAT 06/11/18 DC 06/11/18 Sulfate IV 23:14 23:28 (morphine) 06/11/18 23:15 Procedures/MDM EMERGENT LABS AND DIAGNOSTIC STUDIES: Lab Results above were reviewed and interpreted by me. CBC: Mild leukocytosis, mild anemia CMP: Elevated BUN and creatinine, consistent with chronic kidney disease. No evidence of acidosis or severe electrolyte abnormality. Hyperglycemic. Lactate within normal limits without evidence of sepsis or tissue hypoperfusion Initial Nursing notes reviewed. Previous Medical Records requested via the Electronic Health Record. EMERGENCY DEPARTMENT COURSE / MEDICAL DECISION MAKING: Patient is presenting with possible burn to the left dorsum of his foot now complicated by what seems to be cellulitis. He is afebrile with vitals only notable for tachycardia. Sepsis workup was initiated. There is no evidence of severe sepsis or septic shock. Broad-spectrum antibiotics given and cultures are pending. Patient was noted to be hyperglycemic without evidence of acidosis. His primary care doctor, Dr. Cruz, was contacted for admission. However he deferred admission to Dr. Scanlon or Panel. For this reason Dr. Scanlon was called and his colleague, Dr. Roth who was on-call for him, accepted this patient for admission to [facility]. Departure Diagnosis: Primary Impression: Foot ulcer, left Non-pressure ulcer stage: limited to breakdown of skin Qualified Codes: L9 7.521 - Non-pressure chronic ulcer of other part of left foot limited to breakdown of skin Additional Impressions: Left foot burn Encounter type: initial encounter Burn degree: partial thickness (2nd degree) Qualified Codes: T25.222A - Burn of second degree of left foot, initial encounter Cellulitis of left lower extremity Diabetes mellitus due to underlying condition, uncontrolled, with hyperglycemia Chronic kidney disease Chronic kidney disease stage: on chronic dialysis Qualified Codes: N18.6 - End stage renal disease; Z99.2 - Dependence on renal dialysis Condition: IKE Nava MD Jun 12, 2018 00:20
[2018-06-12] MEDS ORDERED: VANCOMYCIN IV PER PHARMACY XX SCH (01:00)
[2018-06-12] MEDS ORDERED: ONDANSETRON 4 MG INJ IV PRN (01:00)
[2018-06-12] MEDS ORDERED: DEXTROSE 50% 50 ML SYRINGE IV PRN ×2 (01:30)
[2018-06-12] MEDS ORDERED: GLUCOSE GEL 15 GRAM TUBE BUCCAL PRN (01:30)
[2018-06-12] MEDS ORDERED: GLUCOSE GEL 15 GRAM TUBE PO PRN ×2 (01:30)
[2018-06-12] MEDS ORDERED: GLUCAGON 1 MG INJ IM PRN (01:30)
[2018-06-12] MEDS: morphine 4 MG/ML VIAL IV PRN ×5 (01:55→19:00)
[2018-06-12] MEDS ORDERED: ACCU-CHEK XX SCH (02:00)
[2018-06-12] MEDS ORDERED: INSULIN ASPART [NOVOLOG] 3 ML PEN SC ONE (02:00)
[2018-06-12] MEDS ORDERED: VANCOMYCIN 1 GM 250 ML IVPB SCH (03:30)
[2018-06-12] MEDS ORDERED: INSULIN ASPART [NOVOLOG] 3 ML PEN SC SCH (08:00)
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
[2018-06-12] MEDS: SILVER SULFADIAZINE 1% 25 GM CR TOP SCH (14:36)
[2018-06-12] MEDS ORDERED: EZET10TA31 PO (16:15)
[2018-06-12] MEDS ORDERED: METO10TA6 PO (16:15)
[2018-06-12] MEDS ORDERED: ECON15CR TP (16:15)
[2018-06-12] MEDS ORDERED: ICOS1CAP PO (16:15)
[2018-06-12] MEDS ORDERED: ATRO INHALATION (16:15)
[2018-06-12] MEDS ORDERED: PROM118S PO (16:15)
[2018-06-12] MEDS ORDERED: BUDE6.9H INHALATION (16:15)
[2018-06-12] MEDS ORDERED: LACT10SO5 PO (16:15)
[2018-06-12] MEDS ORDERED: FLUO120C4 TOP (16:15)
[2018-06-12] MEDS ORDERED: ONDA8TAB83 PO (16:15)
[2018-06-12] MEDS ORDERED: DULO60CA59 PO (16:15)
[2018-06-12] MEDS ORDERED: AMIT50TA3 PO (16:15)
[2018-06-12] MEDS ORDERED: BENA10TA4 PO (16:15)
[2018-06-12] MEDS: SEVELAMER CARBONATE 0.8 GM PKT PO SCH (17:52)
[2018-06-12] MEDS: INSULIN ASPART [NOVOLOG] 3 ML PEN SC SCH ×3 (17:54→21:00)
[2018-06-12] MEDS: DOCUSATE SODIUM 250 MG CAP PO SCH (20:05)
[2018-06-12] MEDS: INSULIN GLARGINE [LANTus] (100 UNITS/ML) SYG SC SCH (20:19)
[2018-06-12] MEDS: LORAZEPAM 2 MG INJ IV PRN (20:51)
[2018-06-13 02:00] VITALS: BP 151/70; PULSE 91; RESP 18
[2018-06-13] MEDS: ACCU-CHEK XX SCH (02:00)
[2018-06-13] MEDS: PANTOPRAZOLE (EC) 40 MG TAB PO SCH (06:07)
[2018-06-13 07:45] VITALS: BP 135/62; PULSE 82; RESP 18
[2018-06-13] MEDS: INSULIN ASPART [NOVOLOG] 3 ML PEN SC SCH ×7 (08:17→20:08)
[2018-06-13] MEDS: DOCUSATE SODIUM 250 MG CAP PO SCH ×2 (08:49→20:08)
[2018-06-13] MEDS: ASPIRIN (EC) 81 MG TAB PO SCH (08:49)
[2018-06-13] MEDS: FENOFIBRATE 145 MG TAB PO SCH (08:51)
[2018-06-13] MEDS: CLOPIDOGREL 75 MG TAB PO SCH (08:52)
--- NOTE | 2018-06-13 08:52 | CONS ---
Assessment/Plan Assessment/Plan Assessment/Plan 1. CKD, with next HD scheduled tomm. 2. Left foot cellultis is improving, burn being addressed 3. DM, sugar control is satisfactory 4. BP is controlled 5. ASHD, asx Consultation Date/Type/Reason Admit Date/Time Jun 11, 2018 at 23:38 Type of Consult Nephrology Date/Time of Note DATE: 06/13/18 TIME: 08:50 Respiratory: No shortness of breath Cardiovascular: no complaints; No chest pain Gastrointestinal: no complaints Genitourinary: no complaints Exam/Review of Systems Vital Signs Vitals Vital Signs Date Temp Pulse Resp B/P (MAP) Pulse Ox O2 O2 Flow FiO2 Time Delivery Rate 06/13/18 98.6 82 18 135/62 96 Nasal 07:45 (86) Cannula 06/12/18 2.0 20:05 Intake and Output 06/12/18 06/12/18 06/13/18 1515:00 23:00 07:00 IntakeIntake Total 760 ml 360 ml OutputOutput Total 1900 ml BalanceBalance 760 ml -1540 ml Exam Neck: No jvd Respiratory: clear to auscultation Cardiovascular: regular rate and rhythm Gastrointestinal: soft Extremities: other (left foot is bandaged, eyrthema tibia area is better); No edema Labs Result Diagram: 06/13/18 0459 06/13/18 0459 Results 24hrs Laboratory Tests Test 06/12/18 12:57 06/12/18 17:51 06/12/18 20:06 06/13/18 04:59 Bedside Glucose 147 158 90 White Blood Count 8.2 Red Blood Count 3.51 L Hemoglobin 10.8 L Hematocrit 35.9 L Mean Corpuscular 102.3 H Volume Mean Corpuscular 30.8 Hemoglobin Mean Corpuscular 30.1 L Hemoglobin Concent Red Cell 14.2 Distribution Width Platelet Count 249 Mean Platelet Volume 10.6 H Immature 0.700 H Granulocytes % Neutrophils % 76.7 Lymphocytes % 12.0 L Monocytes % 6.4 Eosinophils % 3.6 Basophils % 0.6 Nucleated Red Blood 0.0 Cells % Immature 0.060 H Granulocytes # Neutrophils # 6.3 Lymphocytes # 1.0 Monocytes # 0.5 Eosinophils # 0.3 Basophils # 0.1 Nucleated Red Blood 0.0 Cells # Sodium Level 140 Potassium Level 4.6 Chloride Level 95 L Carbon Dioxide Level 33 H Anion Gap 12 Blood Urea Nitrogen 53 #H Creatinine 3.02 H Est Glomerular 21 L Filtrat Rate mL/min Glucose Level 258 H Calcium Level 8.7 Test 06/13/18 08:14 Bedside Glucose 199 Medications Medications Current Medications Vancomycin HCl (Vanco Iv Per Pharmacy) VANCOMYCIN PER PHARMACY PER PROTOCOL XX ; Start 06/12/18 at 01:00 Morphine Sulfate (morphine) 2 mg Q4H PRN IV moderte PAIN LEVEL 5-7; Start at 01:00 Morphine Sulfate (morphine) 4 mg Q4H PRN IV SEVERE PAIN LEVEL 7-10 Last administered on 06/12/18at 19:00; Admin Dose 4 MG; Start 06/12/18 at 01:00 Ondansetron HCl (Zofran Inj) 4 mg Q6H PRN IV NAUSEA AND/OR VOMITING; Start 06/12/18 at 01:00 Miscellaneous Information 1 ea NOTE XX ; Start 06/12/18 at 01:30 Glucose (Glutose) 15 gm Q15M PRN PO DECREASED GLUCOSE; Start 06/12/18 at 01:30 Glucose (Glutose) 22.5 gm Q15M PRN PO DECREASED GLUCOSE; Start 06/12/18 at 01:30 Dextrose (D50w Syringe) 25 ml Q15M PRN IV DECREASED GLUCOSE; Start 06/12/18 at 01:30 Dextrose (D50w Syringe) 50 ml Q15M PRN IV DECREASED GLUCOSE; Start 06/12/18 at 01:30 Glucagon (Glucagen) 1 mg Q15M PRN IM DECREASED GLUCOSE; Start 06/12/18 at 01:30 Glucose (Glutose) 15 gm Q15M PRN BUCCAL DECREASED GLUCOSE; Start 06/12/18 at 01:30 Aspirin (Halfprin) 81 mg DAILY PO ; Start 06/13/18 at 09:00 Carvedilol (Coreg) 12.5 mg DAILY PO ; Start 06/13/18 at 09:00 Clopidogrel Bisulfate (plaVIX) 75 mg DAILY PO ; Start 06/13/18 at 09:00 Docusate Sodium (Colace) 250 mg BID PO Last administered on 06/12/18at 20:05; Admin Dose 250 MG; Start 06/12/18 at 21:00 Fenofibrate (Tricor) 145 mg DAILY PO ; Start 06/13/18 at 09:00 Sevelamer Carbonate (Renvela) 1.6 gm WITH MEALS PO Last administered on 06/12/18 17:52; Admin Dose 1.6 GM; Start 06/12/18 at 18:00 Pantoprazole (Protonix Tab) 40 mg DAILY@0600 PO Last administered on 06/13/18 06:07; Admin Dose 40 MG; Start 06/13/18 at 06:00 Diagnostic Test (Pha) (Accu-Chek) 1 ea 02 XX ; Start 06/13/18 at 02:00 Insulin Glargine (Lantus) 30 units DAILY@2000 SC Last administered on 06/12/18 20:19; Admin Dose 30 UNITS; Start 06/12/18 at 20:00 Insulin Aspart (Novolog Insulin Pen) 10 unit WITH MEALS SC Last administered on 06/13/18 08:20; Admin Dose 10 UNIT; Start 06/12/18 at 18:00 Insulin Aspart (Novolog Insulin Pen) NOVOLOG *MILD* ALGORITHM WITH MEALS BEDTIME SC Last administered on 06/13/18 08:17; Admin Dose 2 UNIT; Start 06/12/18 at 18:00 Silver Sulfadiazine (Thermazene 1% 25 Gm) 1 applic DAILY TOP Last administered on 06/12/18 14:36; Admin Dose 1 APPLIC; Start 06/12/18 at 14:00 Lorazepam (Ativan) 1 mg Q6H PRN IV ANXIETY Last administered on 06/12/18 20:5 1; Admin Dose 1 MG; Start 06/12/18 at 21:00 SALBADOR SHIRLEY MD Jun 13, 2018 08:52
[2018-06-13] MEDS: SEVELAMER CARBONATE 0.8 GM PKT PO SCH ×3 (08:59→17:45)
[2018-06-13] MEDS: morphine 4 MG/ML VIAL IV PRN ×2 (09:47→13:52)
[2018-06-13] MEDS: SILVER SULFADIAZINE 1% 25 GM CR TOP SCH (09:52)
[2018-06-13 13:44] VITALS: BP 148/69; PULSE 75; RESP 17
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
--- NOTE | 2018-06-13 16:11 | CONS ---
Assessment/Plan Assessment/Plan Hospital Course (Demo Recall) No acute changes. Patient is sleeping, looks comfortable, no fevers overnight WBC 8.2 neutrophils 76.7 Blood cultures negative Antimicrobials: Vancomycin Physical examination: Well-developed obese elderly man who is in no distress. Head atraumatic normocephalic. Neck is supple chest rise symmetrical breath sounds diminished bases. Heart: S1-S2. Abdomen distended soft bowel sounds pre sent. Extremities with left lower extremity edema and erythema Assessment: 1. Left lower extremity cellulitis 2. End-stage renal disease, hemodialysis dependent 3. Diabetes 4. Morbid obesity 5. Coronary artery disease, history of AICD 6. Peripheral arterial disease status post bypass surgeries status post right foot partial amputation Plan: Patient remains stable continue present care antibiotics, keep left lower extremity elevated Consultation Date/Type/Reason Admit Date/Time Jun 12, 2018 at 12:13 Initial Consult Date Type of Consult id Date/Time of Note DATE: 06/13/18 TIME: 16:11 Exam/Review of Systems Exam Vitals Vital Signs Date Temp Pulse Resp B/P (MAP) Pulse Ox O2 O2 Flow FiO2 Time Delivery Rate 06/13/18 98.4 75 17 148/69 98 Nasal 13:44 (95) Cannula 06/13/18 2.0 08:00 Intake and Output 06/12/18 06/12/18 06/13/18 1515:00 23:00 07:00 IntakeIntake Total 760 ml 360 ml OutputOutput Total 1900 ml BalanceBalance 760 ml -1540 ml Results Result Diagram: 06/13/18 0459 06/13/18 0459 Results 24hrs Laboratory Tests Test 06/12/18 17:51 06/12/18 20:06 06/13/18 04:59 06/13/18 08:14 Bedside Glucose 158 90 199 White Blood Count 8.2 Red Blood Count 3.51 L Hemoglobin 10.8 L Hematocrit 35.9 L Mean Corpuscular 102.3 H Volume Mean Corpuscular 30.8 Hemoglobin Mean Corpuscular 30.1 L Hemoglobin Concent Red Cell 14.2 Distribution Width Platelet Count 249 Mean Platelet Volume 10.6 H Immature 0.700 H Granulocytes % Neutrophils % 76.7 Lymphocytes % 12.0 L Monocytes % 6.4 Eosinophils % 3.6 Basophils % 0.6 Nucleated Red Blood 0.0 Cells % Immature 0.060 H Granulocytes # Neutrophils # 6.3 Lymphocytes # 1.0 Monocytes # 0.5 Eosinophils # 0.3 Basophils # 0.1 Nucleated Red Blood 0.0 Cells # Sodium Level 140 Potassium Level 4.6 Chloride Level 95 L Carbon Dioxide Level 33 H Anion Gap 12 Blood Urea Nitrogen 53 #H Creatinine 3.02 H Est Glomerular 21 L Filtrat Rate mL/min Glucose Level 258 H Calcium Level 8.7 Test 06/13/18 12:32 Bedside Glucose 236 H Medications Medication Current Medications Vancomycin HCl (Vanco Iv Per Pharmacy) VANCOMYCIN PER PHARMACY PER PROTOCOL XX ; Start 06/12/18 at 01:00 Morphine Sulfate (morphine) 2 mg Q4H PRN IV moderte PAIN LEVEL 5-7; Start 06/12/18 at 01:00 Morphine Sulfate (morphine) 4 mg Q4H PRN IV SEVERE PAIN LEVEL 7-10 Last administered on 06/13/18at 13:52; Admin Dose 4 MG; Start 06/12/18 at 01:00 Ondansetron HCl (Zofran Inj) 4 mg Q6H PRN IV NAUSEA AND/OR VOMITING; Start 06/12/18 at 01:00 Miscellaneous Information 1 ea NOTE XX ; Start 06/12/18 at 01:30 Glucose (Glutose) 15 gm Q15M PRN PO DECREASED GLUCOSE; Start 06/12/18 at 01:30 Glucose (Glutose) 22.5 gm Q15M PRN PO DECREASED GLUCOSE; Start 06/12/18 at 01:30 Dextrose (D50w Syringe) 25 ml Q15M PRN IV DECREASED GLUCOSE; Start 06/12/18 at 01:30 Dextrose (D50w Syringe) 50 ml Q15M PRN IV DECREASED GLUCOSE; Start 06/12/18 at 01:30 Glucagon (Glucagen) 1 mg Q15M PRN IM DECREASED GLUCOSE; Start 06/12/18 at 01:30 Glucose (Glutose) 15 gm Q15M PRN BUCCAL DECREASED GLUCOSE; Start 06/12/18 at 01:30 Aspirin (Halfprin) 81 mg DAILY PO Last administered on 06/13/18at 08:49; Admin Dose 81 MG; Start 06/13/18 at 09:00 Carvedilol (Coreg) 12.5 mg DAILY PO Last administered on 06/13/18at 08:51; Admin Dose 12.5 MG; Start 06/13/18 at 09:00 Clopidogrel Bisulfate (plaVIX) 75 mg DAILY PO Last administered on 06/13/18 08:52; Admin Dose 75 MG; Start 06/13/18 at 09:00 Docusate Sodium (Colace) 250 mg BID PO Last administered on 06/13/18 08:49; Admin Dose 250 MG; Start 06/12/18 at 21:00 Fenofibrate (Tricor) 145 mg DAILY PO Last administered on 06/13/18 08:51; Admin Dose 145 MG; Start 06/13/18 at 09:00 Sevelamer Carbonate (Renvela) 1.6 gm WITH MEALS PO Last administered on 06/13/18 12:54; Admin Dose 1.6 GM; Start 06/12/18 at 18:00 Pantoprazole (Protonix Tab) 40 mg DAILY@0600 PO Last administered on 06/13/18 06:07; Admin Dose 40 MG; Start 06/13/18 at 06:00 Diagnostic Test (Pha) (Accu-Chek) 1 ea 02 XX ; Start 06/13/18 at 02:00 Insulin Glargine (Lantus) 30 units DAILY@2000 SC Last administered on 06/12/18 20:19; Admin Dose 30 UNITS; Start 06/12/18 at 20:00 Insulin Aspart (Novolog Insulin Pen) 10 unit WITH MEALS SC Last administered on 06/13/18 12:39; Admin Dose 10 UNIT; Start 06/12/18 at 18:00 Insulin Aspart (Novolog Insulin Pen) NOVOLOG *MILD* ALGORITHM WITH MEALS BEDTIME SC Last administered on 06/13/18 12:39; Admin Dose 3 UNIT; Start 06/12/18 at 18:00 Silver Sulfadiazine (Thermazene 1% 25 Gm) 1 applic DAILY TOP Last administered on 06/13/18 09:52; Admin Dose 1 APPLIC; Start 06/12/18 at 14:00 Lorazepam (Ativan) 1 mg Q6H PRN IV ANXIETY Last administered on 06/12/18 20:51; Admin Dose 1 MG; Start 06/12/18 at 21:00 Miscellaneous Information (*Rx Drug Level Order Reminder*) 1 ONCE ONCE XX ; Start 06/14/18 at 05:00; Stop 06/14/18 at 05:01 AMMON LOZOYA NP Jun 13, 2018 16:11
[2018-06-13] MEDS: morphine 2 MG INJ IV PRN ×2 (16:56→20:09)
--- NOTE | 2018-06-13 17:01 | CONS ---
Assessment/Plan Assessment/Plan Assessment/Plan (Daily) Left foot diabetic ulcer Cellulitis PAD Hx of right foot TMA DM2 with peripheral neuropathy ESRD on HD CHF Plan Consent was obtained and performed bedside excisional debridement of skin/subQ of left foot diabetic ulceration site using pickup/scissors. Fibrotic tissue, skin slough, and biofilm was removed from the ulcer site. 16cm2 of area was debrided. X-rays and non invasive arterial studies ordered. Recommend daily dressing changes and offloading of heels. Wound Cultures to be obtained. Continue with IV abx per recommendations. Tight glycemic control. Consultation Date/Type/Reason Admit Date/Time Jun 12, 2018 at 12:13 Date/Time of Note DATE: 06/13/18 TIME: 17:01 Hx of Present Illness 63-year-old [place] gentleman with history of hemodialysis dependent renal failure, coronary artery disease, diabetes with peripheral neuropathy and, peripheral arterial disease status post multiple surgeries on lower extremities, congestive heart failure. Patient presented to the emergency room with complaints of left foot ulcer and redness spreading up the anterior portion of left lower extremities noticed by family member. Patient stated that she was frying meat and did notice some oil splattered outside of the l[place] however did not felt any burning sensation. Patient was diagnosed with left lower extremity cellulitis, was started on broad-spectrum antibiotics and admitted for further evaluation and management to medical surgical floor. Patient denies any chest pain, denies shortness of breath denies nausea vomiting diarrhea. ROS negative except for HPI Past Medical History Medical History: congestive heart failure, coronary artery disease, diabetes, renal disease Home Meds Reported Medications Econazole Nitrate (Econazole Nitrate) 15 Gm Cream..g., 15 GM TP 06/12/18 Ezetimibe* (Zetia*) 10 Mg Tablet, 10 MG PO, TAB 06/12/18 Ondansetron Hcl* (Ondansetron Hcl*) 8 Mg Tablet, 8 MG PO, TAB 06/12/18 Fluocinonide* (Fluocinonide* Cream) 0.1% - 120 Gm Cream..g., 1 APPLIC TOP, TUB 06/12/18 Fluocinonide* (Fluocinonide* Cream) 0.1% - 120 Gm Cream..g., 1 APPLIC TOP, TUB 06/12/18 Ipratropium [place]* (Atrovent HFA*) 12.9 Gm Aer.w.adap, 2 PUFF INHALATION for SHORTNESS OF BREATH, #1 INHALER 06/12/18 Metolazone* (Metolazone*) 10 Mg Tablet, 10 MG PO, TAB 06/12/18 Promethazine/Phenyleph/Codeine (Pfzratvnbzdl-MH-Pgsuwbx Syrup) 118 Ml Syrup, 118 ML PO 06/12/18 Amitriptyline Hcl* (Amitriptyline Hcl*) 50 Mg Tablet, 50 MG PO, #30 TAB 06/12/18 Duloxetine Hcl* (Duloxetine Hcl*) 60 Mg Capsule.dr, 60 MG PO, #30 CAP 06/12/18 Icosapent Ethyl (VASCEPA) 1 Gm Capsule, 1 GM PO, CAP 06/12/18 Benazepril Hcl* (Benazepril Hcl*) 10 Mg Tablet, 10 MG PO, #60 TAB 06/12/18 Budesonide-Formoterol Fumarate* (Symbicort*) 80-4.5 Mcg Hfa.aer.ad, 2 PUFF INHALATION, BOTTLE 06/12/18 Lactulose* (Lactulose*) 10 Gm/15 Ml Solution, 10 GM PO, ML 06/12/18 Furosemide* (Furosemide*) 80 Mg Tablet, 80 MG PO BID, #60 TAB 04/19/18 Pregabalin* (Lyrica*) 50 Mg Capsule, 50 MG PO BID, CAP 03/05/18 Omeprazole* (Omeprazole*) 40 Mg Capsule.dr, 40 MG PO DAILY, #30 CAP 03/05/18 Zolpidem Tartrate* (Ambien*) 10 Mg Tablet, 10 MG PO QHS PRN for INSOMNIA, TAB 03/05/18 Tamsulosin Hcl* (Tamsulosin Hcl*) 0.4 Mg Cap.er.24h, 0.4 MG PO HS, CAP 03/05/18 Sevelamer Carbonate* (Renvela*) 800 Mg Tablet, 1.6 GM PO WITH MEALS, TAB 03/05/18 Metoprolol Succinate* (Toprol XL*) 50 Mg Tab.er.24h, 50 MG PO DAILY, #30 TAB 03/05/18 Insulin Degludec (Tresiba Flextouch U-100) 100 Unit/1 Ml Insuln.pen, 40 UNIT SQ QHS 03/05/18 Insulin Aspart* (Novolog Insulin Pen*) 100 Unit/Ml Soln, 12 UNIT SC WITH MEALS, EA 03/05/18 Fenofibrate Nanocrystallized* (Fenofibrate*) 145 Mg Tablet, 145 MG PO DAILY, TAB 03/05/18 Esomeprazole Mag Trihydrate (Nexium) 40 Mg Capsule.dr, 40 MG PO DAILY, #30 CAP 03/05/18 Duloxetine Hcl* (Cymbalta*) 60 Mg Capsule.dr, 60 MG PO DAILY, CAP 03/05/18 Docusate Sodium* (Colace*) 250 Mg Capsule, 250 MG PO BID, #60 CAP 03/05/18 Cyclobenzaprine Hcl* (Cyclobenzaprine Hcl*) 10 Mg Tablet, 10 MG PO Q6H, #60 TAB 03/05/18 Clopidogrel Bisulfate (Clopidogrel) 75 Mg Tablet, 75 MG PO DAILY, #30 TAB 03/05/18 Carvedilol* (Carvedilol*) 12.5 Mg Tablet, 12.5 MG PO DAILY, #60 TAB 03/05/18 Atorvastatin* (Atorvastatin*) 80 Mg Tablet, 80 MG PO QHS, #30 TAB 03/05/18 Aspirin* (Aspirin* EC) 81 Mg Tablet.dr, 81 MG PO DAILY, TAB 03/05/18 Apixaban* (Eliquis*) 2.5 Mg Tablet, 2.5 MG PO BID, TAB 03/05/18 Medications Current Medications Vancomycin HCl (Vanco Iv Per Pharmacy) VANCOMYCIN PER PHARMACY PER PROTOCOL XX ; Start 06/12/18 at 01:00 Morphine Sulfate (morphine) 2 mg Q4H PRN IV moderte PAIN LEVEL 5-7; Start 06/12/18 at 01:00 Morphine Sulfate (morphine) 4 mg Q4H PRN IV SEVERE PAIN LEVEL 7-10 Last administered on 06/13/18at 13:52; Admin Dose 4 MG; Start 06/12/18 at 01:00 Ondansetron HCl (Zofran Inj) 4 mg Q6H PRN IV NAUSEA AND/OR VOMITING; Start 06/12/18 at 01:00 Miscellaneous Information 1 ea NOTE XX ; Start 06/12/18 at 01:30 Glucose (Glutose) 15 gm Q15M PRN PO DECREASED GLUCOSE; Start 06/12/18 at 01:30 Glucose (Glutose) 22.5 gm Q15M PRN PO DECREASED GLUCOSE; Start 06/12/18 at 01:30 Dextrose (D50w Syringe) 25 ml Q15M PRN IV DECREASED GLUCOSE; Start 06/12/18 at 01:30 Dextrose (D50w Syringe) 50 ml Q15M PRN IV DECREASED GLUCOSE; Start 06/12/18 at 01:30 Glucagon (Glucagen) 1 mg Q15M PRN IM DECREASED GLUCOSE; Start 06/12/18 at 01:30 Glucose (Glutose) 15 gm Q15M PRN BUCCAL DECREASED GLUCOSE; Start 06/12/18 at 01:30 Aspirin (Halfprin) 81 mg DAILY PO Last administered on 06/13/18at 08:49; Admin Dose 81 MG; Start 06/13/18 at 09:00 Carvedilol (Coreg) 12.5 mg DAILY PO Last administered on 06/13/18at 08:51; Admin Dose 12.5 MG; Start 06/13/18 at 09:00 Clopidogrel Bisulfate (plaVIX) 75 mg DAILY PO Last administered on 06/13/18at 08:52; Admin Dose 75 MG; Start 06/13/18 at 09:00 Docusate Sodium (Colace) 250 mg BID PO Last administered on 06/13/18at 08:49; Admin Dose 250 MG; Start 06/12/18 at 21:00 Fenofibrate (Tricor) 145 mg DAILY PO Last administered on 06/13/18at 08:51; Admin Dose 145 MG; Start 06/13/18 at 09:00 Sevelamer Carbonate (Renvela) 1.6 gm WITH MEALS PO Last administered on 06/13/18at 12:54; Admin Dose 1.6 GM; Start 06/12/18 at 18:00 Pantoprazole (Protonix Tab) 40 mg DAILY@0600 PO Last administered on 06/13/18at 06:07; Admin Dose 40 MG; Start 06/13/18 at 06:00 Diagnostic Test (Pha) (Accu-Chek) 1 ea 02 XX ; Start 06/13/18 at 02:00 Insulin Glargine (Lantus) 30 units DAILY@2000 SC Last administered on 06/12/18at 20:19; Admin Dose 30 UNITS; Start 06/12/18 at 20:00 Insulin Aspart (Novolog Insulin Pen) 10 unit WITH MEALS SC Last administered on 06/13/18at 12:39; Admin Dose 10 UNIT; Start 06/12/18 at 18:00 Insulin Aspart (Novolog Insulin Pen) NOVOLOG *MILD* ALGORITHM WITH MEALS BEDTIME SC Last administered on 06/13/18at 12:39; Admin Dose 3 UNIT; Start 06/12/18 at 18:00 Silver Sulfadiazine (Thermazene 1% 25 Gm) 1 applic DAILY TOP Last administered on 06/13/18at 09:52; Admin Dose 1 APPLIC; Start 06/12/18 at 14:00 Lorazepam (Ativan) 1 mg Q6H PRN IV ANXIETY Last administered on 06/12/18at 20:51; Admin Dose 1 MG; Start 06/12/18 at 21:00 Miscellaneous Information (*Rx Drug Level Order Reminder*) 1 ONCE ONCE XX ; Start 06/14/18 at 05:00; Stop 06/14/18 at 05:01 Allergies: Coded Allergies: No Known Allergies (Unverified Allergy, Mild, 04/19/18) Past Surgical History Past Surgical Hx: other (Status post must multiple vascular surgeries on bilateral lower extremities, status post right partial amputation status post AICD placement, status post AV fistula creation left upper extremity) Social History Alcohol Use: occasionally Smoking Status: Former smoker Drug Use: none Exam/Review of Systems Exam Vitals Vital Signs Date Temp Pulse Resp B/P (MAP) Pulse Ox O2 O2 Flow FiO2 Time Delivery Rate 06/13/18 98.4 75 17 148/69 98 Nasal 13:44 (95) Cannula 06/13/18 2.0 08:00 Intake and Output 06/12/18 06/12/18 06/13/18 1515:00 23:00 07:00 IntakeIntake Total 760 ml 360 ml OutputOutput Total 1900 ml BalanceBalance 760 ml -1540 ml Exam DP/PT pulses weakly palpable Skin temperature gradient warm to warm from proximal leg to distal feet absent protective sensations Right foot TMA site appreciated Right medial calf with fibrotic eschar formation Left dorsal foot with fibrogranular wound measuring 4 x 4 x 0.2cm, no probing to bone, no purulent drainage. There is erythema to the anterior aspect of the left leg Muscle strength 5/5 in all compartments of the foot. Results Result Diagram: 06/13/18 0459 06/13/18 0459 Results 24hrs Laboratory Tests Test 06/12/18 17:51 06/12/18 20:06 06/13/18 04:59 06/13/18 08:14 Bedside Glucose 158 90 199 White Blood Count 8.2 Red Blood Count 3.51 L Hemoglobin 10.8 L Hematocrit 35.9 L Mean Corpuscular 102.3 H Volume Mean Corpuscular 30.8 Hemoglobin Mean Corpuscular 30.1 L Hemoglobin Concent Red Cell 14.2 Distribution Width Platelet Count 249 Mean Platelet Volume 10.6 H Immature 0.700 H Granulocytes % Neutrophils % 76.7 Lymphocytes % 12.0 L Monocytes % 6.4 Eosinophils % 3.6 Basophils % 0.6 Nucleated Red Blood 0.0 Cells % Immature 0.060 H Granulocytes # Neutrophils # 6.3 Lymphocytes # 1.0 Monocytes # 0.5 Eosinophils # 0.3 Basophils # 0.1 Nucleated Red Blood 0.0 Cells # Sodium Level 140 Potassium Level 4.6 Chloride Level 95 L Carbon Dioxide Level 33 H Anion Gap 12 Blood Urea Nitrogen 53 #H Creatinine 3.02 H Est Glomerular 21 L Filtrat Rate mL/min Glucose Level 258 H Calcium Level 8.7 Test 06/13/18 12:32 Bedside Glucose 236 H Medications Medication Current Medications Vancomycin HCl (Vanco Iv Per Pharmacy) VANCOMYCIN PER PHARMACY PER PROTOCOL XX ; Start 06/12/18 at 01:00 Morphine Sulfate (morphine) 2 mg Q4H PRN IV moderte PAIN LEVEL 5-7; Start 06/12/18 at 01:00 Morphine Sulfate (morphine) 4 mg Q4H PRN IV SEVERE PAIN LEVEL 7-10 Last administered on 06/13/18at 13:52; Admin Dose 4 MG; Start 06/12/18 at 01:00 Ondansetron HCl (Zofran Inj) 4 mg Q6H PRN IV NAUSEA AND/OR VOMITING; Start 06/12/18 at 01:00 Miscellaneous Information 1 ea NOTE XX ; Start 06/12/18 at 01:30 Glucose (Glutose) 15 gm Q15M PRN PO DECREASED GLUCOSE; Start 06/12/18 at 01:30 Glucose (Glutose) 22.5 gm Q15M PRN PO DECREASED GLUCOSE; Start 06/12/18 at 01:30 Dextrose (D50w Syringe) 25 ml Q15M PRN IV DECREASED GLUCOSE; Start 06/12/18 at 01:30 Dextrose (D50w Syringe) 50 ml Q15M PRN IV DECREASED GLUCOSE; Start 06/12/18 at 01:30 Glucagon (Glucagen) 1 mg Q15M PRN IM DECREASED GLUCOSE; Start 06/12/18 at 01:30 Glucose (Glutose) 15 gm Q15M PRN BUCCAL DECREASED GLUCOSE; Start 06/12/18 at 01:30 Aspirin (Halfprin) 81 mg DAILY PO Last administered on 06/13/18at 08:49; Admin Dose 81 MG; Start 06/13/18 at 09:00 Carvedilol (Coreg) 12.5 mg DAILY PO Last administered on 06/13/18at 08:51; Admin Dose 12.5 MG; Start 06/13/18 at 09:00 Clopidogrel Bisulfate (plaVIX) 75 mg DAILY PO Last administered on 06/13/18at 0 8:52; Admin Dose 75 MG; Start 06/13/18 at 09:00 Docusate Sodium (Colace) 250 mg BID PO Last administered on 06/13/18 08:49; Admin Dose 250 MG; Start 06/12/18 at 21:00 Fenofibrate (Tricor) 145 mg DAILY PO Last administered on 06/13/18at 08:51; Admin Dose 145 MG; Start 06/13/18 at 09:00 Sevelamer Carbonate (Renvela) 1.6 gm WITH MEALS PO Last administered on 06/13/18at 12:54; Admin Dose 1.6 GM; Start 06/12/18 at 18:00 Pantoprazole (Protonix Tab) 40 mg DAILY@0600 PO Last administered on 06/13/18at 06:07; Admin Dose 40 MG; Start 06/13/18 at 06:00 Diagnostic Test (Pha) (Accu-Chek) 1 ea 02 XX ; Start 06/13/18 at 02:00 Insulin Glargine (Lantus) 30 units DAILY@2000 SC Last administered on 06/12/18at 20:19; Admin Dose 30 UNITS; Start 06/12/18 at 20:00 Insulin Aspart (Novolog Insulin Pen) 10 unit WITH MEALS SC Last administered on 06/13/18at 12:39; Admin Dose 10 UNIT; Start 06/12/18 at 18:00 Insulin Aspart (Novolog Insulin Pen) NOVOLOG *MILD* ALGORITHM WITH MEALS BEDTIME SC Last administered on 06/13/18at 12:39; Admin Dose 3 UNIT; Start 06/12/18 at 18:00 Silver Sulfadiazine (Thermazene 1% 25 Gm) 1 applic DAILY TOP Last administered on 06/13/18at 09:52; Admin Dose 1 APPLIC; Start 06/12/18 at 14:00 Lorazepam (Ativan) 1 mg Q6H PRN IV ANXIETY Last administered on 06/12/18at 20:51; Admin Dose 1 MG; Start 06/12/18 at 21:00 Miscellaneous Information (*Rx Drug Level Order Reminder*) 1 ONCE ONCE XX ; Start 06/14/18 at 05:00; Stop 06/14/18 at 05:01 NELL ROSENBAUM DPM Jun 13, 2018 17:01
[2018-06-13 19:54] VITALS: BP 121/63; PULSE 76; RESP 18
[2018-06-13] MEDS: INSULIN GLARGINE [LANTus] (100 UNITS/ML) SYG SC SCH (20:12)
[2018-06-13] MEDS ORDERED: DIPHENHYDRAMINE 25 MG CAP PO PRN (21:30)
[2018-06-13] MEDS: LORAZEPAM 2 MG INJ IV PRN (22:29)
[2018-06-14] VITALS (18 sets, daily range): BP systolic 119–164; BP diastolic 50–86; PULSE 76–89; RESP 18–20
[2018-06-14] MEDS: ACCU-CHEK XX SCH (02:00)
[2018-06-14] MEDS: morphine 4 MG/ML VIAL IV PRN ×2 (02:39→10:55)
[2018-06-14] MEDS: HYDROmorphONE 1 MG/ML SYG IV PRN ×3 (04:20→18:28)
[2018-06-14] MEDS: LORAZEPAM 2 MG INJ IV PRN ×2 (04:21→23:29)
[2018-06-14] MEDS: PANTOPRAZOLE (EC) 40 MG TAB PO SCH (06:00)
[2018-06-14] MEDS: INSULIN ASPART [NOVOLOG] 3 ML PEN SC SCH ×7 (08:30→21:31)
[2018-06-14] MEDS: SILVER SULFADIAZINE 1% 25 GM CR TOP SCH (09:00)
[2018-06-14] MEDS: DOCUSATE SODIUM 250 MG CAP PO SCH ×2 (09:15→21:29)
[2018-06-14] MEDS: ASPIRIN (EC) 81 MG TAB PO SCH (09:15)
[2018-06-14] MEDS: SEVELAMER CARBONATE 0.8 GM PKT PO SCH ×3 (09:16→17:31)
[2018-06-14] MEDS: FENOFIBRATE 145 MG TAB PO SCH (09:16)
[2018-06-14] MEDS: CLOPIDOGREL 75 MG TAB PO SCH (09:16)
--- NOTE | 2018-06-14 09:36 | CONS ---
Assessment/Plan Assessment/Plan Assessment/Plan 1. CKD, now having HD, with next RX Tue 2. Cellultis is improving 3. DM, sugars noted 4. CAD, asx Consultation Date/Type/Reason Admit Date/Time Jun 12, 2018 at 12:13 Type of Consult Nephrology Date/Time of Note DATE: 06/14/18 TIME: 09:34 Respiratory: No cough, No shortness of breath Cardiovascular: No chest pain Gastrointestinal: no complaints Exam/Review of Systems Vital Signs Vitals Vital Signs Date Temp Pulse Resp B/P (MAP) Pulse Ox O2 O2 Flow FiO2 Time Delivery Rate 06/14/18 97.8 89 18 146/69 92 Room Air 07:33 (94) 06/13/18 2.0 19:51 Intake and Output 06/13/18 06/13/18 06/14/18 1515:00 23:00 07:00 IntakeIntake Total 480 ml 240 ml BalanceBalance 480 ml 240 ml Exam Neck: No jvd Respiratory: diminished breath sounds Cardiovascular: regular rate and rhythm Gastrointestinal: soft Extremities: other (left foot is bandaged and pretibial area is less erythematous ); No edema Labs Result Diagram: 06/14/18 0523 06/14/18 0523 Results 24hrs Laboratory Tests Test 06/13/18 12:32 06/13/18 17:01 06/13/18 17:43 06/13/18 20:06 Bedside Glucose 236 H 76 109 Erythrocyte 79 H Sedimentation Rate C-Reactive Protein 4.5 H Test 06/14/18 05:23 06/14/18 08:26 White Blood Count 8.3 Red Blood Count 3.67 L Hemoglobin 11.1 L Hematocrit 37.6 L Mean Corpuscular 102.5 H Volume Mean Corpuscular 30.2 Hemoglobin Mean Corpuscular 29.5 L Hemoglobin Concent Red Cell 14.1 Distribution Width Platelet Count 231 Mean Platelet Volume 10.5 H Immature 0.600 H Granulocytes % Neutrophils % 69.3 Lymphocytes % 18.5 Monocytes % 7.3 Eosinophils % 3.7 Basophils % 0.6 Nucleated Red Blood 0.0 Cells % Immature 0.050 H Granulocytes # Neutrophils # 5.8 Lymphocytes # 1.5 Monocytes # 0.6 Eosinophils # 0.3 Basophils # 0.1 Nucleated Red Blood 0.0 Cells # Sodium Level 139 Potassium Level 4.5 Chloride Level 94 L Carbon Dioxide Level 32 H Anion Gap 13 Blood Urea Nitrogen 74 H Creatinine 4.47 #H Est Glomerular 13 L Filtrat Rate mL/min Glucose Level 292 H Calcium Level 8.5 Phosphorus Level 5.7 H Iron Level 46 Total Iron Binding 339 Capacity Percent Iron 14 L Saturation Ferritin 415.0 H Random Vancomycin 8.2 Level Bedside Glucose 268 H Medications Medications Current Medications Vancomycin HCl (Vanco Iv Per Pharmacy) VANCOMYCIN PER PHARMACY PER PROTOCOL XX ; Start 06/12/18 at 01:00 Morphine Sulfate (morphine) 2 mg Q4H PRN IV moderte PAIN LEVEL 5-7 Last administered on 06/13/18at 20:09; Admin Dose 2 MG; Start 06/12/18 at 01:00 Morphine Sulfate (morphine) 4 mg Q4H PRN IV SEVERE PAIN LEVEL 7-10 Last administered on 06/14/18at 02:39; Admin Dose 4 MG; Start 06/12/18 at 01:00 Ondansetron HCl (Zofran Inj) 4 mg Q6H PRN IV NAUSEA AND/OR VOMITING; Start 06/12/18 at 01:00 Miscellaneous Information 1 ea NOTE XX ; Start 06/12/18 at 01:30 Glucose (Glutose) 15 gm Q15M PRN PO DECREASED GLUCOSE; Start 06/12/18 at 01:30 Glucose (Glutose) 22.5 gm Q15M PRN PO DECREASED GLUCOSE; Start 06/12/18 at 01:30 Dextrose (D50w Syringe) 25 ml Q15M PRN IV DECREASED GLUCOSE; Start 06/12/18 at 01:30 Dextrose (D50w Syringe) 50 ml Q15M PRN IV DECREASED GLUCOSE; Start 06/12/18 at 01:30 Glucagon (Glucagen) 1 mg Q15M PRN IM DECREASED GLUCOSE; Start 06/12/18 at 01:30 Glucose (Glutose) 15 gm Q15M PRN BUCCAL DECREASED GLUCOSE; Start 06/12/18 at 01:30 Aspirin (Halfprin) 81 mg DAILY PO Last administered on 06/14/18at 09:15; Admin Dose 81 MG; Start 06/13/18 at 09:00 Carvedilol (Coreg) 12.5 mg DAILY PO Last administered on 06/13/18at 08:51; Admin Dose 12.5 MG; Start 06/13/18 at 09:00 Clopidogrel Bisulfate (plaVIX) 75 mg DAILY PO Last administered on 06/14/18 09:16; Admin Dose 75 MG; Start 06/13/18 at 09:00 Docusate Sodium (Colace) 250 mg BID PO Last administered on 06/14/18 09:15; Admin Dose 250 MG; Start 06/12/18 at 21:00 Fenofibrate (Tricor) 145 mg DAILY PO Last administered on 06/14/18 09:16; Admin Dose 145 MG; Start 06/13/18 at 09:00 Sevelamer Carbonate (Renvela) 1.6 gm WITH MEALS PO Last administered on 06/14/18 09:16; Admin Dose 1.6 GM; Start 06/12/18 at 18:00 Pantoprazole (Protonix Tab) 40 mg DAILY@0600 PO Last administered on 06/13/18 06:07; Admin Dose 40 MG; Start 06/13/18 at 06:00 Diagnostic Test (Pha) (Accu-Chek) 1 ea 02 XX ; Start 06/13/18 at 02:00 Insulin Glargine (Lantus) 30 units DAILY@2000 SC Last administered on 06/13/18 20:12; Admin Dose 30 UNITS; Start 06/12/18 at 20:00 Insulin Aspart (Novolog Insulin Pen) 10 unit WITH MEALS SC Last administered on 06/14/18 08:31; Admin Dose 10 UNIT; Start 06/12/18 at 18:00 Insulin Aspart (Novolog Insulin Pen) NOVOLOG *MILD* ALGORITHM WITH MEALS BEDTIME SC Last administered on 06/14/18 08:30; Admin Dose 4 UNIT; Start 06/12/18 at 18:00 Silver Sulfadiazine (Thermazene 1% 25 Gm) 1 applic DAILY TOP Last administered on 06/13/18 09:52; Admin Dose 1 APPLIC; Start 06/12/18 at 14:00 Sodium Hypochlorite (Dakin'S (Dilute 1/40)) 1 applic DAILY IRR ; Start 06/14/18 at 09:00 Collagenase (Santyl) 1 applic DAILY TOP ; Start 06/14/18 at 09:00 Diphenhydramine HCl (Benadryl) 25 mg Q8H PRN PO ITCHING Last administered on 06/13/18 22:06; Admin Dose 25 MG; Start 06/13/18 at 21:30 Hydromorphone HCl (Dilaudid) 1 mg Q4H PRN IV SEVERE PAIN LEVEL 7-10 Last administered on 06/14/18at 04:20; Admin Dose 1 MG; Start 06/14/18 at 04:30 Lorazepam (Ativan) 1 mg Q4H PRN IV ANXIETY Last administered on 06/14/18at 04:21; Admin Dose 1 MG; Start 06/14/18 at 04:30 SALBADOR SHIRLEY MD Jun 14, 2018 09:36
--- NOTE | 2018-06-14 13:23 | CONS ---
Assessment/Plan Assessment/Plan Hospital Course (Demo Recall) No acute changes. Looks comfortable, no fevers overnight Blood cultures negative, wound cx pending Antimicrobials: Vancomycin Physical examination: Well-developed obese elderly man who is in no distress. Head atraumatic normocephalic. Neck is supple chest rise symmetrical breath sounds diminished bases. Heart: S1-S2. Abdomen distended soft bowel sounds present. Extremities with left lower extremity edema and erythema Assessment: 1. Left lower extremity cellulitis/ulceration s/p debridement at bedside 2. End-stage renal disease, hemodialysis dependent 3. Diabetes 4. Morbid obesity 5. Coronary artery disease, history of AICD 6. Peripheral arterial disease status post bypass surgeries status post right foot partial amputation Plan: Patient remains stable, continue present care, antibiotics, f/u wound cx, podiatry rec-s Consultation Date/Type/Reason Admit Date/Time Jun 12, 2018 at 12:13 Initial Consult Date Type of Consult id Date/Time of Note DATE: 06/14/18 TIME: 13:22 Exam/Review of Systems Exam Vitals Vital Signs Date Temp Pulse Resp B/P (MAP) Pulse Ox O2 O2 Flow FiO2 Time Delivery Rate 06/14/18 76 12:35 06/14/18 20 164/86 95 Room Air 09:30 (112) 06/14/18 2.0 08:00 06/14/18 97.8 07:33 Intake and Output 06/13/18 06/13/18 06/14/18 1515:00 23:00 07:00 IntakeIntake Total 480 ml 240 ml BalanceBalance 480 ml 240 ml Results Result Diagram: 06/14/18 0523 06/14/18 0523 Results 24hrs Laboratory Tests Test 06/13/18 17:01 06/13/18 17:43 06/13/18 20:06 06/14/18 05:23 Erythrocyte 79 H Sedimentation Rate C-Reactive Protein 4.5 H Bedside Glucose 76 109 White Blood Count 8.3 Red Blood Count 3.67 L Hemoglobin 11.1 L Hematocrit 37.6 L Mean Corpuscular 102.5 H Volume Mean Corpuscular 30.2 Hemoglobin Mean Corpuscular 29.5 L Hemoglobin Concent Red Cell 14.1 Distribution Width Platelet Count 231 Mean Platelet Volume 10.5 H Immature 0.600 H Granulocytes % Neutrophils % 69.3 Lymphocytes % 18.5 Monocytes % 7.3 Eosinophils % 3.7 Basophils % 0.6 Nucleated Red Blood 0.0 Cells % Immature 0.050 H Granulocytes # Neutrophils # 5.8 Lymphocytes # 1.5 Monocytes # 0.6 Eosinophils # 0.3 Basophils # 0.1 Nucleated Red Blood 0.0 Cells # Sodium Level 139 Potassium Level 4.5 Chloride Level 94 L Carbon Dioxide Level 32 H Anion Gap 13 Blood Urea Nitrogen 74 H Creatinine 4.47 #H Est Glomerular 13 L Filtrat Rate mL/min Glucose Level 292 H Calcium Level 8.5 Phosphorus Level 5.7 H Iron Level 46 Total Iron Binding 339 Capacity Percent Iron 14 L Saturation Ferritin 415.0 H Random Vancomycin 8.2 Level Test 06/14/18 08:26 06/14/18 12:14 Bedside Glucose 268 H 128 Medications Medication Current Medications Vancomycin HCl (Vanco Iv Per Pharmacy) VANCOMYCIN PER PHARMACY PER PROTOCOL XX ; Start 06/12/18 at 01:00 Morphine Sulfate (morphine) 2 mg Q4H PRN IV moderte PAIN LEVEL 5-7 Last administered on 06/13/18at 20:09; Admin Dose 2 MG; Start 06/12/18 at 01:00 Morphine Sulfate (morphine) 4 mg Q4H PRN IV SEVERE PAIN LEVEL 7-10 Last admin istered on 06/14/18at 10:55; Admin Dose 4 MG; Start 06/12/18 at 01:00 Ondansetron HCl (Zofran Inj) 4 mg Q6H PRN IV NAUSEA AND/OR VOMITING; Start 06/12/18 at 01:00 Miscellaneous Information 1 ea NOTE XX ; Start 06/12/18 at 01:30 Glucose (Glutose) 15 gm Q15M PRN PO DECREASED GLUCOSE; Start 06/12/18 at 01:30 Glucose (Glutose) 22.5 gm Q15M PRN PO DECREASED GLUCOSE; Start 06/12/18 at 01:30 Dextrose (D50w Syringe) 25 ml Q15M PRN IV DECREASED GLUCOSE; Start 06/12/18 at 01:30 Dextrose (D50w Syringe) 50 ml Q15M PRN IV DECREASED GLUCOSE; Start 06/12/18 at 01:30 Glucagon (Glucagen) 1 mg Q15M PRN IM DECREASED GLUCOSE; Start 06/12/18 at 01:30 Glucose (Glutose) 15 gm Q15M PRN BUCCAL DECREASED GLUCOSE; Start 06/12/18 at 01:30 Aspirin (Halfprin) 81 mg DAILY PO Last administered on 06/14/18 09:15; Admin Dose 81 MG; Start 06/13/18 at 09:00 Carvedilol (Coreg) 12.5 mg DAILY PO Last administered on 06/13/18 08:51; Admin Dose 12.5 MG; Start 06/13/18 at 09:00 Clopidogrel Bisulfate (plaVIX) 75 mg DAILY PO Last administered on 06/14/18 09:16; Admin Dose 75 MG; Start 06/13/18 at 09:00 Docusate Sodium (Colace) 250 mg BID PO Last administered on 06/14/18 09:15; Admin Dose 250 MG; Start 06/12/18 at 21:00 Fenofibrate (Tricor) 145 mg DAILY PO Last administered on 06/14/18 09:16; Admin Dose 145 MG; Start 06/13/18 at 09:00 Sevelamer Carbonate (Renvela) 1.6 gm WITH MEALS PO Last administered on 06/14/18 09:16; Admin Dose 1.6 GM; Start 06/12/18 at 18:00 Pantoprazole (Protonix Tab) 40 mg DAILY@0600 PO Last administered on 06/13/18 06:07; Admin Dose 40 MG; Start 06/13/18 at 06:00 Diagnostic Test (Pha) (Accu-Chek) 1 ea 02 XX ; Start 06/13/18 at 02:00 Insulin Glargine (Lantus) 30 units DAILY@2000 SC Last administered on 06/13/18 20:12; Admin Dose 30 UNITS; Start 06/12/18 at 20:00 Insulin Aspart (Novolog Insulin Pen) 10 unit WITH MEALS SC Last administered on 06/14/18 12:29; Admin Dose 10 UNIT; Start 06/12/18 at 18:00 Insulin Aspart (Novolog Insulin Pen) NOVOLOG *MILD* ALGORITHM WITH MEALS BEDTIME SC Last administered on 06/14/18 08:30; Admin Dose 4 UNIT; Start 06/12/18 at 18:00 Silver Sulfadiazine (Thermazene 1% 25 Gm) 1 applic DAILY TOP Last administered on 06/13/18 09:52; Admin Dose 1 APPLIC; Start 06/12/18 at 14:00 Sodium Hypochlorite (Dakin'S (Dilute 140)) 1 applic DAILY IRR ; Start 06/14/18 at 09:00 Collagenase (Santyl) 1 applic DAILY TOP ; Start 06/14/18 at 09:00 Diphenhydramine HCl (Benadryl) 25 mg Q8H PRN PO ITCHING Last administered on 06/13/18at 22:06; Admin Dose 25 MG; Start 06/13/18 at 21:30 Hydromorphone HCl (Dilaudid) 1 mg Q4H PRN IV SEVERE PAIN LEVEL 7-10 Last administered on 06/14/18at 04:20; Admin Dose 1 MG; Start 06/14/18 at 04:30 Lorazepam (Ativan) 1 mg Q4H PRN IV ANXIETY Last administered on 06/14/18at 04:21; Admin Dose 1 MG; Start 06/14/18 at 04:30 Ferric Sodium Gluconate Complex 125 mg/Sodium Chloride 110 ml @ 110 mls/hr DAILY@1300 IVPB ; Start 06/14/18 at 13:00; Stop 06/18/18 at 13:59 AMMON LOZOYA NP Jun 14, 2018 13:23
[2018-06-14] MEDS: SOD FERRIC GLUC COMPLX 125 MG in SOD CHLORIDE 0.9% 100 ML IVPB SCH (13:38)
[2018-06-14] MEDS: SODIUM HYPOCHLORITE (1/40) 1 LITER BTL IRR SCH (13:38)
[2018-06-14] MEDS: COLLAGENASE 5 GM (UD JAR) TOP SCH (13:38)
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
[2018-06-14] MEDS ORDERED: VANCOMYCIN HCL 1.25 GM in SOD CHLORIDE 0.9% 250 ML IVPB SCH (17:00)
[2018-06-14] MEDS: INSULIN GLARGINE [LANTus] (100 UNITS/ML) SYG SC SCH (21:30)
[2018-06-15] MEDS: ACCU-CHEK XX SCH (02:00)
[2018-06-15] MEDS: PANTOPRAZOLE (EC) 40 MG TAB PO SCH (05:30)
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
[2018-06-15 08:05] VITALS: BP 171/71; PULSE 82; RESP 18
[2018-06-15] MEDS: SEVELAMER CARBONATE 0.8 GM PKT PO SCH ×3 (08:07→17:11)
[2018-06-15] MEDS: CLOPIDOGREL 75 MG TAB PO SCH (08:08)
[2018-06-15] MEDS: DOCUSATE SODIUM 250 MG CAP PO SCH ×2 (08:08→21:13)
[2018-06-15] MEDS: COLLAGENASE 5 GM (UD JAR) TOP SCH (08:08)
[2018-06-15] MEDS: FENOFIBRATE 145 MG TAB PO SCH (08:08)
[2018-06-15] MEDS: ASPIRIN (EC) 81 MG TAB PO SCH (08:08)
[2018-06-15] MEDS: SODIUM HYPOCHLORITE (1/40) 1 LITER BTL IRR SCH (08:09)
[2018-06-15] MEDS: INSULIN ASPART [NOVOLOG] 3 ML PEN SC SCH ×7 (08:10→21:49)
[2018-06-15] MEDS: SILVER SULFADIAZINE 1% 25 GM CR TOP SCH (08:12)
--- NOTE | 2018-06-15 11:43 | CONS ---
Assessment/Plan Assessment/Plan Hospital Course (Demo Recall) No acute changes. Looks comfortable, no fevers Blood cultures negative, wound cx + Staph Antimicrobials: Vancomycin Physical examination: Well-developed obese elderly man who is in no distress. Head atraumatic normocephalic. Neck is supple chest rise symmetrical breath sounds diminished bases. Heart: S1-S2. Abdomen distended soft bowel sounds present. Extremities with left lower extremity edema and erythema Assessment: 1. Left lower extremity cellulitis/ulceration s/p debridement at bedside 2. End-stage renal disease, hemodialysis dependent/L AVF 3. Diabetes 4. Morbid obesity 5. Coronary artery disease, history of AICD 6. Peripheral arterial disease status post bypass surgeries status post right foot partial amputation Plan: Patient remains stable, continue present care, antibiotics, wound care per podiatry rec-s Consultation Date/Type/Reason Admit Date/Time Jun 12, 2018 at 12:13 Initial Consult Date Type of Consult id Date/Time of Note DATE: 06/15/18 TIME: 11:42 Exam/Review of Systems Exam Vitals Vital Signs Date Temp Pulse Resp B/P (MAP) Pulse Ox O2 O2 Flow FiO2 Time Delivery Rate 06/15/18 98.7 82 18 171/71 95 08:05 (104) 06/15/18 Nasal 2.0 08:00 Cannula Intake and Output 06/14/18 06/14/18 06/15/18 1515:00 23:00 07:00 IntakeIntake Total 950 ml 610 ml 240 ml OutputOutput Total 2100 ml BalanceBalance -1150 ml 610 ml 240 ml Results Result Diagram: 06/15/18 0536 06/15/18 0536 Results 24hrs Laboratory Tests Test 06/14/18 12:14 06/14/18 17:20 06/14/18 21:27 06/15/18 02:46 Bedside Glucose 128 187 206 295 H Test 06/15/18 05:36 06/15/18 08:06 White Blood Count 8.6 Red Blood Count 3.86 L Hemoglobin 11.6 L Hematocrit 38.5 L Mean Corpuscular 99.7 Volume Mean Corpuscular 30.1 Hemoglobin Mean Corpuscular 30.1 L Hemoglobin Concent Red Cell 14.1 Distribution Width Platelet Count 248 Mean Platelet Volume 10.9 H Immature 0.600 H Granulocytes % Neutrophils % 76.0 Lymphocytes % 13.4 L Monocytes % 6.0 Eosinophils % 3.2 Basophils % 0.8 Nucleated Red Blood 0.0 Cells % Immature 0.050 H Granulocytes # Neutrophils # 6.5 Lymphocytes # 1.2 Monocytes # 0.5 Eosinophils # 0.3 Basophils # 0.1 Nucleated Red Blood 0.0 Cells # Sodium Level 143 Potassium Level 4.8 Chloride Level 101 Carbon Dioxide Level 30 Anion Gap 12 Blood Urea Nitrogen 54 H Creatinine 3.35 #H Est Glomerular 19 L Filtrat Rate mL/min Glucose Level 312 H Calcium Level 9.0 Bedside Glucose 228 H Medications Medication Current Medications Vancomycin HCl (Vanco Iv Per Pharmacy) VANCOMYCIN PER PHARMACY PER PROTOCOL XX ; Start 06/12/18 at 01:00 Morphine Sulfate (morphine) 2 mg Q4H PRN IV moderte PAIN LEVEL 5-7 Last administered on 06/13/18at 20:09; Admin Dose 2 MG; Start 06/12/18 at 01:00 Morphine Sulfate (morphine) 4 mg Q4H PRN IV SEVERE PAIN LEVEL 7-10 Last administered on 06/14/18at 10:55; Admin Dose 4 MG; Start 06/12/18 at 01:00 Ondansetron HCl (Zofran Inj) 4 mg Q6H PRN IV NAUSEA AND/OR VOMITING; Start 06/12/18 at 01:00 Miscellaneous Information 1 ea NOTE XX ; Start 06/12/18 at 01:30 Glucose (Glutose) 15 gm Q15M PRN PO DECREASED GLUCOSE; Start 06/12/18 at 01:30 Glucose (Glutose) 22.5 gm Q15M PRN PO DECREASED GLUCOSE; Start 06/12/18 at 01:30 Dextrose (D50w Syringe) 25 ml Q15M PRN IV DECREASED GLUCOSE; Start 06/12/18 at 01:30 Dextrose (D50w Syringe) 50 ml Q15M PRN IV DECREASED GLUCOSE; Start 06/12/18 at 01:30 Glucagon (Glucagen) 1 mg Q15M PRN IM DECREASED GLUCOSE; Start 06/12/18 at 01:30 Glucose (Glutose) 15 gm Q15M PRN BUCCAL DECREASED GLUCOSE; Start 06/12/18 at 01:30 Aspirin (Halfprin) 81 mg DAILY PO Last administered on 06/15/18at 08:08; Admin Dose 81 MG; Start 06/13/18 at 09:00 Carvedilol (Coreg) 12.5 mg DAILY PO Last administered on 06/15/18 08:08; Admin Dose 12.5 MG; Start 06/13/18 at 09:00 Clopidogrel Bisulfate (plaVIX) 75 mg DAILY PO Last administered on 06/15/18 08:08; Admin Dose 75 MG; Start 06/13/18 at 09:00 Docusate Sodium (Colace) 250 mg BID PO Last administered on 06/15/18 08:08; Admin Dose 250 MG; Start 06/12/18 at 21:00 Fenofibrate (Tricor) 145 mg DAILY PO Last administered on 06/15/18 08:08; Admin Dose 145 MG; Start 06/13/18 at 09:00 Sevelamer Carbonate (Renvela) 1.6 gm WITH MEALS PO Last administered on 06/15/18 08:07; Admin Dose 1.6 GM; Start 06/12/18 at 18:00 Pantoprazole (Protonix Tab) 40 mg DAILY@0600 PO Last administered on 06/15/18 05:30; Admin Dose 40 MG; Start 06/13/18 at 06:00 Diagnostic Test (Pha) (Accu-Chek) 1 ea 02 XX ; Start 06/13/18 at 02:00 Insulin Glargine (Lantus) 30 units DAILY@2000 SC Last administered on 06/14/18 21:30; Admin Dose 30 UNITS; Start 06/12/18 at 20:00 Insulin Aspart (Novolog Insulin Pen) 10 unit WITH MEALS SC Last administered on 06/15/18 08:10; Admin Dose 10 UNIT; Start 06/12/18 at 18:00 Insulin Aspart (Novolog Insulin Pen) NOVOLOG *MILD* ALGORITHM WITH MEALS BEDTIME SC Last administered on 06/15/18 08:11; Admin Dose 3 UNIT; Start 06/12/18 at 18:00 Silver Sulfadiazine (Thermazene 1% 25 Gm) 1 applic DAILY TOP Last administered on 06/15/18 08:12; Admin Dose 1 APPLIC; Start 06/12/18 at 14:00 Sodium Hypochlorite (Dakin'S (Dilute 1/40)) 1 applic DAILY IRR Last administered on 06/15/18 08:09; Admin Dose 1 APPLIC; Start 06/14/18 at 09:00 Collagenase (Santyl) 1 applic DAILY TOP Last administered on 06/15/18 08:08; Admin Dose 1 APPLIC; Start 06/14/18 at 09:00 Diphenhydramine HCl (Benadryl) 25 mg Q8H PRN PO ITCHING Last administered on 06/13/18 22:06; Admin Dose 25 MG; Start 06/13/18 at 21:30 Hydromorphone HCl (Dilaudid) 1 mg Q4H PRN IV SEVERE PAIN LEVEL 7-10 Last administered on 06/14/18 18:28; Admin Dose 1 MG; Start 06/14/18 at 04:30 Lorazepam (Ativan) 1 mg Q4H PRN IV ANXIETY Last administered on 06/14/18 23:29; Admin Dose 1 MG; Start 06/14/18 at 04:30 Ferric Sodium Gluconate Complex 125 mg/Sodium Chloride 110 ml @ 110 mls/hr DAILY@1300 IVPB Last administered on 06/14/18 13:38; Admin Dose 110 MLS/HR; Start 06/14/18 at 13:00; Stop 06/18/18 at 13:59 AMMON LOZOYA NP Jun 15, 2018 11:43
[2018-06-15] MEDS: HYDROmorphONE 1 MG/ML SYG IV PRN ×3 (11:45→21:14)
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
[2018-06-15] MEDS: ALBUTEROL/IPRATROPIUM (NEB) 3 ML AMP HHN SCH ×3 (12:57→23:15)
[2018-06-15] MEDS: GABAPENTIN 100 MG CAP PO SCH ×2 (13:58→21:13)
[2018-06-15] MEDS: ARIPIPRAZOLE 2 MG TAB PO SCH (13:58)
[2018-06-15] MEDS: SOD FERRIC GLUC COMPLX 125 MG in SOD CHLORIDE 0.9% 100 ML IVPB SCH (14:00)
--- NOTE | 2018-06-15 14:34 | CONS ---
DATE OF ADMISSION: 06/12/2018 DATE OF CONSULTATION: 06/15/2018 REFERRING PHYSICIAN: Laura Chong MD REASON FOR CONSULTATION: Left dorsal foot ulcer. HISTORY OF PRESENT ILLNESS: This is a 63-year-old [place] Citizen speaking gentleman. He is diabetic. He has end-stage renal disease. He is on dialysis via left arm AV fistula. He has had long history of peripheral arterial disease. He has an AICD on the right side. He has had a failed it looks like bi lateral fem-pop bypasses. He has had recurrent episodes of syncope and he got cardiac arrest. He crenshaw s seizure disorder. He has some dementia or mental impairment. He is bipolar. He has extensive cor onary artery disease. He has had recurrent foot wounds. He burned his left foot. He spilled boilin g oil on it on the dorsum of the foot. This was about a week ago. Dr. Ratliff is going to see him a nd debrided it recently. Dr. Chong asked me to evaluate him from vascular standpoint. He had so me arterial studies done 2 days ago which are really bad. On the left side, his SFA is completely oc cluded. There is no note of a bypass graft, but he got scars consistent with the bypass graft. He h as very minimal flow in the profunda femoral arteries bilaterally and monophasic tibial flow on the l eft. On the right, the SFA and popliteal are patent with monophasic tibial flow. He has bilateral t ibial disease and severe profunda disease bilaterally. PAST MEDICAL HISTORY: Again significant for diabetes, hypertension, end-stage renal disease on hemod ialysis, coronary artery disease, AICD, CHF and morbid obesity. MEDICATIONS: Currently consist of: 1. Vancomycin. 2. Iron. 3. Dakin's is being applied to the left foot and Santyl as well. 4. Dilaudid. 5. Ativan. 6. Benadryl. 7. Aspirin. 8. Coreg. 9. Plavix. 10. TriCor. 11. Protonix. 12. Colace. 13. Lantus. 14. Renvela. 15. Vancomycin. 16. Zofran. ALLERGIES: HE HAS NO KNOWN DRUG ALLERGIES. PAST SURGICAL HISTORY: Significant for right TMA in the past, AICD placement, multiple vascular surg eries in both legs and a left arm AV fistula. SOCIAL HISTORY: He is a former smoker. He does not drink or use any illicit drugs. REVIEW OF SYSTEMS: Currently, he is complaining of pain and he wants some pain medication. Otherwis e, no chest pain, no shortness of breath, no nausea, vomiting, diarrhea. No fever, no chills, no rec ent weight gain or weight loss. No abdominal or back pain. PHYSICAL EXAMINATION GENERAL: He is an elderly [place] Citizen gentleman. He speaks a little bit of Icelandic. He is in no acute distress. VITAL SIGNS: He has been afebrile. His blood pressure is 171/71, heart rate 82, respiratory rate is 18. He is 95% sat on room air. PERIPHERAL VASCULAR: He has 2+ carotid, radial and brachial pulses bilaterally. He has a left upper arm AV fistula, has a good thrill. CHEST: He has a right chest wall AICD. The site looks fine. LUNGS: Clear. HEART: Regular rate and rhythm. ABDOMEN: Obese, soft, nontender, nondistended. I really cannot feel femoral, popliteal, DP or PT pu lses in either lower extremity. On the right, he has a TMA that is well healed. On the left, he has dorsal foot ulcers, where he was burned. There is some granulation tissue that actually does not lo ok ischemic. It is not very deep, but it has full thickness necrosis of the skin. It looks like it has been debrided and had some Dakin solution on it right now. The foot however has reasonably good perfusion. It is pink and severely ischemic. DIAGNOSTIC DATA: Again, his arterial study was horrible. His SFA is occluded. He has got minimal p rofunda flow, but it does reconstitute the popliteal with biphasic flow and monophasic tibial flow. IMPRESSION: Left dorsal foot ulcer that is traumatic in nature. The first one is fairly superficial . He has chronic severe arterial disease and multiple failed lower extremity revascularizations. It looks like failed fem-pop bypass on the left. His revascularization options are pretty poor, but I think with wound care that this may heal. I will discuss the case with Dr. Cabrera and Dr. Rosenbaum and I would not recommend any intervention. At this time, I am going to order CT angiogram to get a better idea of what we have to work with if it does need revascularization. Dictated By: ANDREI BURKS/CHELO Conf#: [id number] DID#: [id number] CC: LAURA CHONG MD; EDDY MATHIASM; NELL ROSENBAUM DPM; EMILY MCDUFFIE MD; CHUN MCCULLOUGH MD; SALBADOR SHIRLEY MD; DANISH MCDERMOTT MD;*EndCC*
[2018-06-15 16:46] VITALS: BP 105/55; PULSE 76; RESP 18
[2018-06-15] MEDS ORDERED: SOD CHLORIDE 0.9% 100 ML ONE (19:21)
[2018-06-15] MEDS ORDERED: IOHEXOL 300MG/ML 150 ML BTL ONE (19:21)
[2018-06-15] MEDS ORDERED: IODIXANOL LOCM 50 ML BTL ONE (19:26)
[2018-06-15] MEDS ORDERED: IODIXANOL LOCM 100 ML BTL ONE (19:26)
[2018-06-15 20:38] VITALS: BP 152/67; PULSE 91; RESP 18
[2018-06-15] MEDS: INSULIN GLARGINE [LANTus] (100 UNITS/ML) SYG SC SCH (23:23)
[2018-06-16] VITALS (18 sets, daily range): BP systolic 101–152; BP diastolic 50–72; PULSE 56–98; RESP 16–22
[2018-06-16] MEDS: HYDROmorphONE 1 MG/ML SYG IV PRN ×6 (01:18→21:42)
[2018-06-16] MEDS: ACCU-CHEK XX SCH (02:00)
[2018-06-16] MEDS: PANTOPRAZOLE (EC) 40 MG TAB PO SCH (05:50)
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
[2018-06-16] MEDS: INSULIN ASPART [NOVOLOG] 3 ML PEN SC SCH ×7 (07:50→21:00)
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
[2018-06-16] MEDS: CLOPIDOGREL 75 MG TAB PO SCH (08:44)
[2018-06-16] MEDS: SEVELAMER CARBONATE 0.8 GM PKT PO SCH ×3 (08:44→18:01)
[2018-06-16] MEDS: ARIPIPRAZOLE 2 MG TAB PO SCH (08:44)
[2018-06-16] MEDS: DOCUSATE SODIUM 250 MG CAP PO SCH ×2 (08:44→21:00)
[2018-06-16] MEDS: GABAPENTIN 100 MG CAP PO SCH ×3 (08:44→21:00)
[2018-06-16] MEDS: FENOFIBRATE 145 MG TAB PO SCH (08:44)
[2018-06-16] MEDS: ASPIRIN (EC) 81 MG TAB PO SCH (08:44)
[2018-06-16] MEDS: SILVER SULFADIAZINE 1% 25 GM CR TOP SCH (08:45)
[2018-06-16] MEDS: SODIUM HYPOCHLORITE (1/40) 1 LITER BTL IRR SCH (08:46)
[2018-06-16] MEDS: COLLAGENASE 5 GM (UD JAR) TOP SCH (08:47)
[2018-06-16] MEDS: ALBUTEROL/IPRATROPIUM (NEB) 3 ML AMP HHN SCH ×3 (09:03→23:09)
--- NOTE | 2018-06-16 11:58 | CONS ---
Assessment/Plan Assessment/Plan Hospital Course (Demo Recall) No changes, no fevers Blood cultures negative, wound cx + Staph Antimicrobials: Vancomycin Physical examination: Well-developed obese elderly man who is in no distress. Head atraumatic normocephalic. Neck is supple chest rise symmetrical breath sounds diminished bases. Heart: S1-S2. Abdomen distended soft bowel sounds present. Extremities with left lower extremity edema and erythema Assessment: 1. Left lower extremity cellulitis/ulceration s/p debridement at bedside 2. End-stage renal disease, hemodialysis dependent/L AVF 3. Diabetes 4. Morbid obesity 5. Coronary artery disease, history of AICD 6. Peripheral arterial disease status post bypass surgeries status post right foot partial amputation Plan: Patient remains stable, continue present care, IV Vanco to complete 2 weeks, wound care per podiatry rec-s Consultation Date/Type/Reason Admit Date/Time Jun 12, 2018 at 12:13 Initial Consult Date Type of Consult id Date/Time of Note DATE: 06/16/18 TIME: 11:57 Exam/Review of Systems Exam Vitals Vital Signs Date Temp Pulse Resp B/P (MAP) Pulse Ox O2 O2 Flow FiO2 Time Delivery Rate 06/16/18 98 22 115/55 96 Nasal 2.0 11:11 (75) Cannula 06/16/18 21 09:05 06/16/18 98.1 07:54 Intake and Output 06/15/18 06/15/18 06/16/18 1515:00 23:00 07:00 IntakeIntake Total 1200 ml 1310 ml 500 ml BalanceBalance 1200 ml 1310 ml 500 ml Results Result Diagram: 06/15/18 0536 06/16/18 0455 Results 24hrs Laboratory Tests Test 06/15/18 12:12 06/15/18 13:39 06/15/18 17:35 06/15/18 17:58 Bedside Glucose 97 66 L 100 Lactic Acid Level 0.8 Test 06/15/18 18:18 06/15/18 21:12 06/15/18 23:24 06/16/18 01:57 Bedside Glucose 208 367 H 346 H 295 H Test 06/16/18 04:55 06/16/18 07:45 Sodium Level 141 Potassium Level 4.6 Chloride Level 100 Carbon Dioxide Level 29 Anion Gap 12 Blood Urea Nitrogen 59 H Creatinine 3.30 H Est Glomerular 19 L Filtrat Rate mL/min Glucose Level 253 H Hemoglobin A1c 9.9 H Calcium Level 8.8 Magnesium Level 1.9 Triglycerides Level 230 H Cholesterol Level 181 LDL Cholesterol, 103 Calculated HDL Cholesterol 32 Cholesterol/HDL 5.6 Ratio Random Vancomycin 12.5 Level Bedside Glucose 210 Medications Medication Current Medications Vancomycin HCl (Vanco Iv Per Pharmacy) VANCOMYCIN PER PHARMACY PER PROTOCOL XX ; Start 06/12/18 at 01:00 Morphine Sulfate (morphine) 2 mg Q4H PRN IV moderte PAIN LEVEL 5-7 Last administered on 06/13/18at 20:09; Admin Dose 2 MG; Start 06/12/18 at 01:00 Morphine Sulfate (morphine) 4 mg Q4H PRN IV SEVERE PAIN LEVEL 7-10 Last administered on 06/14/18at 10:55; Admin Dose 4 MG; Start 06/12/18 at 01:00 Ondansetron HCl (Zofran Inj) 4 mg Q6H PRN IV NAUSEA AND/OR VOMITING; Start 06/12/18 at 01:00 Miscellaneous Information 1 ea NOTE XX ; Start 06/12/18 at 01:30 Glucose (Glutose) 15 gm Q15M PRN PO DECREASED GLUCOSE; Start 06/12/18 at 01:30 Glucose (Glutose) 22.5 gm Q15M PRN PO DECREASED GLUCOSE; Start 06/12/18 at 01:30 Dextrose (D50w Syringe) 25 ml Q15M PRN IV DECREASED GLUCOSE; Start 06/12/18 at 01:30 Dextrose (D50w Syringe) 50 ml Q15M PRN IV DECREASED GLUCOSE; Start 06/12/18 at 01:30 Glucagon (Glucagen) 1 mg Q15M PRN IM DECREASED GLUCOSE; Start 06/12/18 at 01:30 Glucose (Glutose) 15 gm Q15M PRN BUCCAL DECREASED GLUCOSE; Start 06/12/18 at 01:30 Aspirin (Halfprin) 81 mg DAILY PO Last administered on 06/16/18at 08:44; Admin Dose 81 MG; Start 06/13/18 at 09:00 Carvedilol (Coreg) 12.5 mg DAILY PO Last administered on 06/15/18 08:08; Admin Dose 12.5 MG; Start 06/13/18 at 09:00 Clopidogrel Bisulfate (plaVIX) 75 mg DAILY PO Last administered on 06/16/18at 08:44; Admin Dose 75 MG; Start 06/13/18 at 09:00 Docusate Sodium (Colace) 250 mg BID PO Last administered on 06/16/18 08:44; Admin Dose 250 MG; Start 06/12/18 at 21:00 Fenofibrate (Tricor) 145 mg DAILY PO Last administered on 06/16/18 08:44; Admin Dose 145 MG; Start 06/13/18 at 09:00 Sevelamer Carbonate (Renvela) 1.6 gm WITH MEALS PO Last administered on 06/16/18 08:44; Admin Dose 1.6 GM; Start 06/12/18 at 18:00 Pantoprazole (Protonix Tab) 40 mg DAILY@0600 PO Last administered on 06/16/18 05:50; Admin Dose 40 MG; Start 06/13/18 at 06:00 Diagnostic Test (Pha) (Accu-Chek) 1 ea 02 XX ; Start 06/13/18 at 02:00 Insulin Aspart (Novolog Insulin Pen) NOVOLOG *MILD* ALGORITHM WITH MEALS BEDTIME SC Last administered on 06/16/18 07:50; Admin Dose 2 UNIT; Start 06/12/18 at 18:00 Silver Sulfadiazine (Thermazene 1% 25 Gm) 1 applic DAILY TOP Last administered on 06/16/18 08:45; Admin Dose 1 APPLIC; Start 06/12/18 at 14:00 Sodium Hypochlorite (Dakin'S (Dilute 40)) 1 applic DAILY IRR Last administered on 06/16/18 08:46; Admin Dose 1 APPLIC; Start 06/14/18 at 09:00 Collagenase (Santyl) 1 applic DAILY TOP Last administered on 06/16/18 08:47; Admin Dose 1 APPLIC; Start 06/14/18 at 09:00 Diphenhydramine HCl (Benadryl) 25 mg Q8H PRN PO ITCHING Last administered on 06/13/18 22:06; Admin Dose 25 MG; Start 06/13/18 at 21:30 Hydromorphone HCl (Dilaudid) 1 mg Q4H PRN IV SEVERE PAIN LEVEL 7-10 Last administered on 06/16/18 09:37; Admin Dose 1 MG; Start 06/14/18 at 04:30 Lorazepam (Ativan) 1 mg Q4H PRN IV ANXIETY Last administered on 06/14/18 23:29; Admin Dose 1 MG; Start 06/14/18 at 04:30 Ferric Sodium Gluconate Complex 125 mg/Sodium Chloride 110 ml @ 110 mls/hr DAILY@1300 IVPB Last administered on 06/15/18 14:00; Admin Dose 110 MLS/HR; Start 06/14/18 at 13:00; Stop 06/18/18 at 13:59 Albuterol/ Ipratropium (Duoneb) 3 ml Q8H RESP THERAPY HHN Last administered on 06/16/18 09:03; Admin Dose 3 ML; Start 06/15/18 at 14:00 Gabapentin (Neurontin) 200 mg TID PO Last administered on 06/16/18 08:44; Admin Dose 200 MG; Start 06/15/18 at 13:00 Aripiprazole (Abilify) 2 mg DAILY PO Last administered on 06/16/18 08:44; Admin Dose 2 MG; Start 06/15/18 at 14:00 Insulin Aspart (Novolog Insulin Pen) 8 unit WITH MEALS SC Last administered on 06/16/18 07:51; Admin Dose 8 UNIT; Start 06/16/18 at 08:00 Insulin Glargine (Lantus) 25 units DAILY@2000 SC Last administered on 06/15/18 23:23; Admin Dose 25 UNITS; Start 06/15/18 at 20:00 AMMON LOZOYA NP Jun 16, 2018 11:58
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
[2018-06-16] MEDS: SOD FERRIC GLUC COMPLX 125 MG in SOD CHLORIDE 0.9% 100 ML IVPB SCH (13:04)
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
[2018-06-16] MEDS ORDERED: VANCOMYCIN HCL 1.25 GM in SOD CHLORIDE 0.9% 250 ML IVPB ONE (15:00)
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
[2018-06-16] MEDS: FUROSEMIDE 40 MG TAB PO SCH (18:04)
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
[2018-06-16] MEDS: ATORVASTATIN 80 MG TAB PO SCH (21:00)
[2018-06-16] MEDS: INSULIN GLARGINE [LANTus] (100 UNITS/ML) SYG SC SCH (21:04)
[2018-06-17] MEDS: HYDROmorphONE 1 MG/ML SYG IV PRN ×5 (01:33→23:25)
[2018-06-17 02:00] VITALS: BP 114/53; PULSE 81; RESP 18
[2018-06-17] MEDS: ACCU-CHEK XX SCH (02:00)
[2018-06-17] MEDS: PANTOPRAZOLE (EC) 40 MG TAB PO SCH (05:47)
--- NOTE | 2018-06-17 06:06 | HKNOTE ---
DATE OF SERVICE: HISTORY OF PRESENT ILLNESS: The patient is 63 years old status post history of syncopal attack, seiz ure, diabetes, peripheral neuropathy, infection, status post fall. CURRENT MEDICATIONS: Include: 1. Insulin 8 units subcutaneous once a day. 2. Albuterol inhaler. 3. Abilify 2 mg once a day. 4. Neurontin 200 mg 3 times a day. 5. Dilaudid 1 mg every 4 hours as needed. 6. Ativan 1 mg every 4 hours as needed. 7. Benadryl 25 mg once a day. 8. Aspirin 81 mg once a day. 9. Coreg 12.5 mg once a day. 10. Plavix 75 mg once a day. 11. TriCor 145 mg once a day. 12. Protonix 40 mg once a day. 13. Colace 250 mg twice a day. 14. Vancomycin 1 gram once a day, held by ID. 15. Morphine 2 mg every 4 hours as needed. 16. Zofran 4 mg every 4 hours. PAST MEDICAL HISTORY: Include chronic obstructive pulmonary disease, obesity, MRSA, recurrent syncop al attack, memory involvement, coronary artery disease, diabetes type 2, diabetic neuropathy, periphe ral artery disease, congestive heart failure, osteomyelitis, anemia and cellulitis. SOCIAL HISTORY: The patient is a former smoker, occasionally drinks, does not use any street drugs. PHYSICAL EXAMINATION: GENERAL: Today, the patient is alert, awake, oriented, following simple commands. CRANIAL NERVES: Cranial nerve II: Pupils equal both sides, reactive to light. Cranial nerves III, IV and : Extraocular muscles are intact without nystagmus. Cranial nerve V: Equal sensation to f ashish. Cranial nerve VII: Symmetrical face. Cranial nerve VIII: Decreased hearing bilaterally. Inspector Receiving nial nerve X: Elevates palate. Cranial nerve XI: Elevates shoulder 5/5. Cranial nerve XII: With straight tongue. MOTOR: Moving both upper and lower extremities against gravity without difficulty. Sensation decrea sed for glove and sock area for light touch and temperature. COORDINATION: [id number] test intact. CARDIOVASCULAR: Regular rate and rhythm. LUNGS: Equal breath sounds. ABDOMEN: Soft, relaxed. ASSESSMENT AND PLAN: 1. The patient is 63 years old status post multiple syncopal attacks. 2. Possibility of underlying seizure activity. Follow up the patient with electroencephalogram as w ell as MRI of his brain for more evaluation and treatment. 3. Keep the patient under fall precaution for now. 4. Peripheral neuropathy, probably secondary to diabetes. Follow up the patient with nerve conducti on study and electromyogram. 5. Status post foot ulcer and infection with the patient on wound care and antibiotic. 6. Underlying dyslipidemia in which the patient is on TriCor 145 mg once a day. 7. Stroke prophylaxis in the form of aspirin as well as Plavix once a day. Again, thank you for asking me to see the patient with you. Dictated By: CELESTINA BORGES MD NA/NTS Conf#: [id number] DID#: [id number] CC: DANISH MCDERMOTT MD;*EndCC*
[2018-06-17] MEDS: FUROSEMIDE 40 MG TAB PO SCH ×2 (06:44→18:00)
[2018-06-17 08:00] VITALS: BP 109/57; PULSE 81; RESP 20
[2018-06-17] MEDS: ALBUTEROL/IPRATROPIUM (NEB) 3 ML AMP HHN SCH ×2 (08:00→15:59)
[2018-06-17] MEDS: CLOPIDOGREL 75 MG TAB PO SCH (08:22)
[2018-06-17] MEDS: ARIPIPRAZOLE 2 MG TAB PO SCH (08:22)
[2018-06-17] MEDS: FENOFIBRATE 145 MG TAB PO SCH (08:23)
[2018-06-17] MEDS: ASPIRIN (EC) 81 MG TAB PO SCH (08:23)
[2018-06-17] MEDS: DOCUSATE SODIUM 250 MG CAP PO SCH ×2 (08:23→21:01)
[2018-06-17] MEDS: GABAPENTIN 100 MG CAP PO SCH ×3 (08:23→21:01)
[2018-06-17] MEDS: SILVER SULFADIAZINE 1% 25 GM CR TOP SCH (08:24)
[2018-06-17] MEDS: SEVELAMER CARBONATE 0.8 GM PKT PO SCH ×3 (08:24→18:00)
[2018-06-17] MEDS: SODIUM HYPOCHLORITE (1/40) 1 LITER BTL IRR SCH (08:24)
[2018-06-17] MEDS: COLLAGENASE 5 GM (UD JAR) TOP SCH (08:24)
[2018-06-17] MEDS: INSULIN ASPART [NOVOLOG] 3 ML PEN SC SCH ×7 (08:26→21:04)
--- NOTE | 2018-06-17 08:45 | PDOCDIS ---
Discharge Instructions DIAGNOSIS Discharge Diagnosis 1.Left foot ulcer after second-degree burn for approximately 7-8 days duration at home by accidentally spilling that boiling oil to the left foot according to ., Dr. Cabrera is following the patient and the debridement already was done Swelling of the left foot with debridement of the post bone wound of the left foot currently dressed,with d/c and pain. Slow but there is improvement of the wound healing. Latest vancomycin trough 12 point. 2.DM type 2-out of control-unable to provide information how much insulin he got yesterday. Better controlled after his more tight measurement and insulin use 3.-Cellulitis of left lower extremity. Continue broad-spectrum antibiotics. Dr. Schilling,infection disease consultation is following . 4.CKD stage 5-discussed with Dr. Martin,about hemodialysis. 5.Anemia of chronic disease-s/p multiple units of prbc Tx. 6.CHF exacerbation,syst.and diastolic. 7.Osteomyelitis of the metatarsal(Hx )on the right food.Sepsis- hx of cellulitis of right foot with s/p of distal amputation. S/P multiple vascular and debridement surgeries of feet. 8.Pain syndrome 9.Severe diabetic ophthalmo-neuro and nephropathy 10. Severe PAD-status post multiple vascular procedures including shunting. 11.S/P ICD implantation-will be rechecked cardiology consult requested. 12.S/P recurrent syncopal episodes, clinical deaths, resuscitations, intubation, mechanical ventilation and successful extubation 13. Hx of possible seizure d/o 14.MD and memory impairment, anxiety,noncompliance. 15.Inability to control eating impulses. Increased appetite-with no intention and capacity to control. 16.Severe peripheral vascular disease.S/P multiple vascular procedures. 17. Possible bipolar disorder. Very poor emotional control. 18.Severe CAD; status post multiple PTCAs.s/p AICD 19.Memory impairment 20.C02 retention in the past. Will recheck ABG. BIPAP refused in the emergency room. 21.Multiorgan failure episodes in the past recovered well. 22.More irrational thinking and abnormal behavior-in the past now recovered well. Was in [place] for months recently relocated to [place] back 23.Recurrent syncopal vs vent.fib. vs cardiac arrest vs seizure episodes,possible all of them with multiple intubations and Mechanical ventilation prior to ICD implantation. 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 Was stopped. 26.COPD exacerbation with Hx of severe respiratory failure and wheezing ; s/p multiple intubations and BIPAP use. Add bronchodilator therapy. Currently on home oxygen and using her nebulizers at home. 27. Morbid obesity with snoring with apnea on BiPAP at home. 28. Deconditioning 29. Severe constipation Incomplete information. CONDITION [id number] Patient Condition: [id number] Guarded HOME CARE INSTRUCTIONS: [id number] Diet Instructions: [id number] ADA with low-fat low-cholesterol reduced sodium. ACTIVITY: [id number] Activity Restrictions: [id number] Slowly Increase Activity [id number] Bathing Restrictions: [id number] Sponge Bath FOLLOW UP/APPOINTMENTS Follow-up Plan Podiatry follow-up daily please arrange prior to discharge. Nephrology for hemodialysis please arrange prior to discharge. Last hemodialysis was yesterday most probably Tuesday is expected. PT OT at home. The patient revealed that he has a home health care service and he is planning to call them to come to follow. manager valuation to clarify with the family and arrange home health care service for diabetic hypertensive pain and wound care as a primary issues for the patient. SCHOOL/WORK RELEASE May return to School/Work with: NoLAURA HUBER MD Jun 17, 2018 08:45
--- NOTE | 2018-06-17 08:50 | DS ---
Date/Time of Note Date/Time of Note DATE: 06/17/18 TIME: 08:47 Discharge Summary Admission/Discharge Info Admit Date/Time Jun 12, 2018 at 12:13 Discharge Date/Time June 17, 2018 11 AM. Discharge Diagnosis 1.Left foot ulcer after second-degree burn for approximately 7-8 days duration at home by accidentally spilling that boiling oil to the left foot according to ., Dr. Cabrera is following the patient and the debridement already was done Swelling of the left foot with debridement of the post bone wound of the left foot currently dressed,with d/c and pain. Slow but there is improvement of the wound healing. Latest vancomycin trough 12 point. 2.DM type 2-out of control-unable to provide information how much insulin he got yesterday. Better controlled after his more tight measurement and insulin use 3.-Cellulitis of left lower extremity. Continue broad-spectrum antibiotics. Dr. Schilling,infection disease consultation is following . 4.CKD stage 5-discussed with Dr. Martin,about hemodialysis. 5.Anemia of chronic disease-s/p multiple units of prbc Tx. 6.CHF exacerbation,syst.and diastolic. 7.Osteomyelitis of the metatarsal(Hx )on the right food.Sepsis- hx of cellulitis of right foot with s/p of distal amputation. S/P multiple vascular and debridement surgeries of feet. 8.Pain syndrome 9.Severe diabetic ophthalmo-neuro and nephropathy 10. Severe PAD-status post multiple vascular procedures including shunting. 11.S/P ICD implantation-will be rechecked cardiology consult requested. 12.S/P recurrent syncopal episodes, clinical deaths, resuscitations, intubation, mechanical ventilation and successful extubation 13. Hx of possible seizure d/o 14.MD and memory impairment, anxiety,noncompliance. 15.Inability to control eating impulses. Increased appetite-with no intention and capacity to control. 16.Severe peripheral vascular disease.S/P multiple vascular procedures. 17. Possible bipolar disorder. Very poor emotional control. 18.Severe CAD; status post multiple PTCAs.s/p AICD 19.Memory impairment 20.C02 retention in the past. Will recheck ABG. BIPAP refused in the emergency room. 21.Multiorgan failure episodes in the past recovered well. 22.More irrational thinking and abnormal behavior-in the past now recovered well. Was in [place] for months recently relocated to [place] back 23.Recurrent syncopal vs vent.fib. vs cardiac arrest vs seizure ep isodes,possible all of them with multiple intubations and Mechanical ventilation prior to ICD implantation. 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 Was stopped. 26.COPD exacerbation with Hx of severe respiratory failure and wheezing ; s/p multiple intubations and BIPAP use. Add bronchodilator therapy. Currently on home oxygen and using her nebulizers at home. 27. Morbid obesity with snoring with apnea on BiPAP at home. 28. Deconditioning 29. Severe constipation Incomplete information. Patient Condition: Guarded Hx of Present Illness As per the patient to see him. Thank you for previous team to following and will continue to work together. Had a conversation with for patient Velma. According to her about 5-6 days ago may be 7 days ago accidentally his spelled boiling oil to his left leg. According to he did not feel it and how many days past exact she does not recall actually she did not know that but accident ally she discovered born with redness of the left leg and the patient was unaware what is happening with his left lower extremity. Patient was brought to the emergency room of [facility] subsequently admitted started treat for cellulitis and a debridement was done for necrotic tissue postburn. I had a conversation with the patient. She was brought happy to see me and also confused complaining of a poor memory and directly stating that he is fighting with everybody and he does not he does not know why. During communication and become evident that patient want to see me to follow him in the hospital however later stated he started to make jokes talking about his health condition without having a focus. Asking that pain medications he thinks is given less than he needs them. With a lengthy discussion with the inspector canned food reconditioning in the room. Hospital Course After debridement the wound of the left leg is healing slowly but there is a progress. Patient is to be followed by podiatry DrSherry and wound care nurse at home. He needs hospital bed and nebulizer at home. Patient with a condition that the previous time in the hospital bed was delivered it was very uncomfortable and returned it. It is advisable for the case management to show the pictures and discussed with the patient before delivering what kind of bed is going to go home. 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 Parks as a pocket closer. Continue hemodialysis as it was before. Vancomycin weekly during dialysis I plan to continue for another 4 weeks. Weekly. Home Meds Reported Medications Econazole Nitrate (Econazole Nitrate) 15 Gm Cream..g., 15 GM TP 06/12/18 Ezetimibe* (Zetia*) 10 Mg Tablet, 10 MG PO, TAB 06/12/18 Ondansetron Hcl* (Ondansetron Hcl*) 8 Mg Tablet, 8 MG PO, TAB 06/12/18 Fluocinonide* (Fluocinonide* Cream) 0.1% - 120 Gm Cream..g., 1 APPLIC TOP, TUB 06/12/18 Fluocinonide* (Fluocinonide* Cream) 0.1% - 120 Gm Cream..g., 1 APPLIC TOP, TUB 06/12/18 Ipratropium Eunice* (Atrovent HFA*) 12.9 Gm Aer.w.adap, 2 PUFF INHALATION for SHORTNESS OF BREATH, #1 INHALER 06/12/18 Metolazone* (Metolazone*) 10 Mg Tablet, 10 MG PO, TAB 06/12/18 Promethazine/Phenyleph/Codeine (Vbxmworgshqv-UW-Ykxivvt Syrup) 118 Ml Syrup, 118 ML PO 06/12/18 Amitriptyline Hcl* (Amitriptyline Hcl*) 50 Mg Tablet, 50 MG PO, #30 TAB 06/12/18 Duloxetine Hcl* (Duloxetine Hcl*) 60 Mg Capsule.dr, 60 MG PO, #30 CAP 06/12/18 Icosapent Ethyl (VASCEPA) 1 Gm Capsule, 1 GM PO, CAP 06/12/18 Benazepril Hcl* (Benazepril Hcl*) 10 Mg Tablet, 10 MG PO, #60 TAB 06/12/18 Budesonide-Formoterol Fumarate* (Symbicort*) 80-4.5 Mcg Hfa.aer.ad, 2 PUFF INHALATION, BOTTLE 06/12/18 Lactulose* (Lactulose*) 10 Gm/15 Ml Solution, 10 GM PO, ML 06/12/18 Furosemide* (Furosemide*) 80 Mg Tablet, 80 MG PO BID, #60 TAB 1/30/19 Pregabalin* (Lyrica*) 50 Mg Capsule, 50 MG PO BID, CAP 03/05/18 Omeprazole* (Omeprazole*) 40 Mg Capsule.dr, 40 MG PO DAILY, #30 CAP 03/05/18 Zolpidem Tartrate* (Ambien*) 10 Mg Tablet, 10 MG PO QHS PRN for INSOMNIA, TAB 03/05/18 Tamsulosin Hcl* (Tamsulosin Hcl*) 0.4 Mg Cap.er.24h, 0.4 MG PO HS, CAP 03/05/18 Sevelamer Carbonate* (Renvela*) 800 Mg Tablet, 1.6 GM PO WITH MEALS, TAB 03/05/18 Metoprolol Succinate* (Toprol XL*) 50 Mg Tab.er.24h, 50 MG PO DAILY, #30 TAB 03/05/18 Insulin Degludec (Tresiba Flextouch U-100) 100 Unit/1 Ml Insuln.pen, 40 UNIT SQ QHS 03/05/18 Insulin Aspart* (Novolog Insulin Pen*) 100 Unit/Ml Soln, 12 UNIT SC WITH MEALS, EA 03/05/18 Fenofibrate Nanocrystallized* (Fenofibrate*) 145 Mg Tablet, 145 MG PO DAILY, TAB 03/05/18 Esomeprazole Mag Trihydrate (Nexium) 40 Mg Capsule.dr, 40 MG PO DAILY, #30 CAP 03/05/18 Duloxetine Hcl* (Cymbalta*) 60 Mg Capsule.dr, 60 MG PO DAILY, CAP 03/05/18 Docusate Sodium* (Colace*) 250 Mg Capsule, 250 MG PO BID, #60 CAP 03/05/18 Cyclobenzaprine Hcl* (Cyclobenzaprine Hcl*) 10 Mg Tablet, 10 MG PO Q6H, #60 TAB 03/05/18 Clopidogrel Bisulfate (Clopidogrel) 75 Mg Tablet, 75 MG PO DAILY, #30 TAB 03/05/18 Carvedilol* (Carvedilol*) 12.5 Mg Tablet, 12.5 MG PO DAILY, #60 TAB 03/05/18 Atorvastatin* (Atorvastatin*) 80 Mg Tablet, 80 MG PO QHS, #30 TAB 03/05/18 Aspirin* (Aspirin* EC) 81 Mg Tablet.dr, 81 MG PO DAILY, TAB 03/05/18 Apixaban* (Eliquis*) 2.5 Mg Tablet, 2.5 MG PO BID, TAB 03/05/18 Follow-up Plan Podiatry follow-up daily please arrange prior to discharge. Nephrology for hemodialysis please arrange prior to discharge. Last hemodialysis was yesterday most probably Tuesday is expected. PT OT at home. The patient revealed that he has a home health care service and he is planning to call them to come to follow. parks and recreation manager to clarify with the family and arrange home health care service for diabetic hypertensive pain and wound care as a primary issues for the patient. Primary Care Provider Marciano Chong MD Time spent on discharge: > 30 minutes Pending Labs Laboratory Tests Test 06/16/18 12:31 06/16/18 17:35 06/16/18 20:58 06/17/18 05:30 Bedside 76 119 131 Glucose mg/dL (70-220) mg/dL (70-220) mg/dL (70-220) White Blood 8.5 Count 10^3/ul (4.8-1 0.8) Red Blood 3.46 Count 10^6/ul (4.70- 6.10) Hemoglobin 10.5 g/dl (14.0-18. 0) Hematocrit 34.6 % (42.0-52.0) Mean 100.0 Corpuscular fl (82.0-101.0 Volume ) Mean 30.3 Corpuscular pg (29.0-33.0) Hemoglobin Mean 30.3 Corpuscular g/dl (32.0-37. Hemoglobin Conc 0) ent Red Cell 14.0 Distribution % (11.5-14.5) Width Platelet Count 247 10^3/UL (140-4 15) Mean Platelet 10.7 Volume fl (7.4-10.4) Immature 0.500 Granulocytes % % (0.001-0.429 ) Neutrophils % 71.3 % (39.0-77.0) Lymphocytes % 16.6 % (15.0-51.0) Monocytes % 7.3 % (0.0-11.0) Eosinophils % 3.5 % (0.0-7.0) Basophils % 0.8 % (0.0-2.0) Nucleated Red 0.0 Blood Cells % /100WBC (0.0-0 .0) Immature 0.040 Granulocytes # 10^3/ul (0.0-0 .031) Neutrophils # 6.1 10^3/ul (1.6-7 .5) Lymphocytes # 1.4 10^3/ul (0.8-2 .9) Monocytes # 0.6 10^3/ul (0.3-0 .9) Eosinophils # 0.3 10^3/ul (0.0-0 .5) Basophils # 0.1 10^3/ul (0.0-0 .1) Nucleated Red 0.0 Blood Cells # 10^3/ul (0.0-0 .0) Sodium Level 138 mmol/L (135-14 4) Potassium 5.0 Level mmol/L (3.5-5. 1) Chloride Level 100 mmol/L (97-110 ) Carbon Dioxide 29 Level mmol/L (21-31) Anion Gap 9 (5-13) Blood Urea 50 Nitrogen mg/dl (7-20) Creatinine 3.54 mg/dl (0.61-1. 24) Est Glomerular 18 Filtrat mL/min (>60) Rate mL/min Glucose Level 291 mg/dl (70-220) Calcium Level 8.6 mg/dl (8.4-10. 2) Test 06/17/18 07:48 Bedside 298 Glucose mg/dL (70-220) MARCIANO CHONG MD Jun 17, 2018 08:50
[2018-06-17] MEDS ORDERED: BENAZEPRIL 10 MG TAB PO SCH (09:00)
[2018-06-17] MEDS: SOD FERRIC GLUC COMPLX 125 MG in SOD CHLORIDE 0.9% 100 ML IVPB SCH (12:40)
--- NOTE | 2018-06-17 13:16 | CONS ---
Assessment/Plan Assessment/Plan Hospital Course (Demo Recall) ID PROGRESS NOTE == DUPLICATE NOTE == OPENED IN ERROR NOT ABLE TO DELETE Please see alternative ID Progress Note of same date Consultation Date/Type/Reason Admit Date/Time Jun 12, 2018 at 12:13 Initial Consult Date 06/16/18 Requesting Provider: LAURA AHN MD Date/Time of Note DATE: 06/17/18 TIME: 13:16 Exam/Review of Systems Exam Vitals Vital Signs Date Temp Pulse Resp B/P (MAP) Pulse Ox O2 O2 Flow FiO2 Time Delivery Rate 06/17/18 Nasal 2.0 08:01 Cannula 06/17/18 98.1 81 20 109/57 97 08:00 (74) 06/16/18 21 09:05 Intake and Output 06/16/18 06/16/18 06/17/18 1515:00 23:00 07:00 IntakeIntake Total 480 ml 330 ml OutputOutput Total 2600 ml BalanceBalance -2600 ml 480 ml 330 ml Results Result Diagram: 06/17/18 0530 06/17/18 0530 Results 24hrs Laboratory Tests Test 06/16/18 17:35 06/16/18 20:58 06/17/18 05:30 06/17/18 07:48 Bedside Glucose 119 131 298 H White Blood Count 8.5 Red Blood Count 3.46 L Hemoglobin 10.5 L Hematocrit 34.6 L Mean Corpuscular 100.0 Volume Mean Corpuscular 30.3 Hemoglobin Mean Corpuscular 30.3 L Hemoglobin Concent Red Cell 14.0 Distribution Width Platelet Count 247 Mean Platelet Volume 10.7 H Immature 0.500 H Granulocytes % Neutrophils % 71.3 Lymphocytes % 16.6 Monocytes % 7.3 Eosinophils % 3.5 Basophils % 0.8 Nucleated Red Blood 0.0 Cells % Immature 0.040 H Granulocytes # Neutrophils # 6.1 Lymphocytes # 1.4 Monocytes # 0.6 Eosinophils # 0.3 Basophils # 0.1 Nucleated Red Blood 0.0 Cells # Sodium Level 138 Potassium Level 5.0 Chloride Level 100 Carbon Dioxide Level 29 Anion Gap 9 Blood Urea Nitrogen 50 H Creatinine 3.54 H Est Glomerular 18 L Filtrat Rate mL/min Glucose Level 291 H Calcium Level 8.6 Test 06/17/18 12:36 Bedside Glucose 281 H Medications Medication Current Medications Vancomycin HCl (Vanco Iv Per Pharmacy) VANCOMYCIN PER PHARMACY PER PROTOCOL XX ; Start 06/12/18 at 01:00 Morphine Sulfate (morphine) 2 mg Q4H PRN IV moderte PAIN LEVEL 5-7 Last administered on 06/13/18at 20:09; Admin Dose 2 MG; Start 06/12/18 at 01:00 Morphine Sulfate (morphine) 4 mg Q4H PRN IV SEVERE PAIN LEVEL 7-10 Last administered on 06/14/18at 10:55; Admin Dose 4 MG; Start 06/12/18 at 01:00 Ondansetron HCl (Zofran Inj) 4 mg Q6H PRN IV NAUSEA AND/OR VOMITING Last administered on 06/16/18at 21:42; Admin Dose 4 MG; Start 06/12/18 at 01:00 Miscellaneous Information 1 ea NOTE XX ; Start 06/12/18 at 01:30 Glucose (Glutose) 15 gm Q15M PRN PO DECREASED GLUCOSE; Start 06/12/18 at 01:30 Glucose (Glutose) 22.5 gm Q15M PRN PO DECREASED GLUCOSE; Start 06/12/18 at 01:30 Dextrose (D50w Syringe) 25 ml Q15M PRN IV DECREASED GLUCOSE; Start 06/12/18 at 01:30 Dextrose (D50w Syringe) 50 ml Q15M PRN IV DECREASED GLUCOSE; Start 06/12/18 at 01:30 Glucagon (Glucagen) 1 mg Q15M PRN IM DECREASED GLUCOSE; Start 06/12/18 at 01:30 Glucose (Glutose) 15 gm Q15M PRN BUCCAL DECREASED GLUCOSE; Start 06/12/18 at 01:30 Aspirin (Halfprin) 81 mg DAILY PO Last administered on 06/17/18 08:23; Admin Dose 81 MG; Start 06/13/18 at 09:00 Carvedilol (Coreg) 12.5 mg DAILY PO Last administered on 06/17/18 08:23; Admin Dose 12.5 MG; Start 06/13/18 at 09:00 Clopidogrel Bisulfate (plaVIX) 75 mg DAILY PO Last administered on 06/17/18 08:22; Admin Dose 75 MG; Start 06/13/18 at 09:00 Docusate Sodium (Colace) 250 mg BID PO Last administered on 06/17/18 08:23; Admin Dose 250 MG; Start 06/12/18 at 21:00 Fenofibrate (Tricor) 145 mg DAILY PO Last administered on 06/17/18 08:23; Admin Dose 145 MG; Start 06/13/18 at 09:00 Sevelamer Carbonate (Renvela) 1.6 gm WITH MEALS PO Last administered on 06/17/18 08:24; Admin Dose 1.6 GM; Start 06/12/18 at 18:00 Pantoprazole (Protonix Tab) 40 mg DAILY@0600 PO Last administered on 06/17/18 05:47; Admin Dose 40 MG; Start 06/13/18 at 06:00 Diagnostic Test (Pha) (Accu-Chek) 1 ea 02 XX ; Start 06/13/18 at 02:00 Insulin Aspart (Novolog Insulin Pen) NOVOLOG *MILD* ALGORITHM WITH MEALS BEDTIME SC Last administered on 06/17/18 12:45; Admin Dose 4 UNIT; Start 06/12/18 at 18:00 Silver Sulfadiazine (Thermazene 1% 25 Gm) 1 applic DAILY TOP Last administered on 06/17/18 08:24; Admin Dose 1 APPLIC; Start 06/12/18 at 14:00 Sodium Hypochlorite (Dakin'S (Dilute 40)) 1 applic DAILY IRR Last administered on 06/17/18 08:24; Admin Dose 1 APPLIC; Start 06/14/18 at 09:00 Collagenase (Santyl) 1 applic DAILY TOP Last administered on 06/17/18 08:24; Admin Dose 1 APPLIC; Start 06/14/18 at 09:00 Diphenhydramine HCl (Benadryl) 25 mg Q8H PRN PO ITCHING Last administered on 06/13/18 22:06; Admin Dose 25 MG; Start 06/13/18 at 21:30 Hydromorphone HCl (Dilaudid) 1 mg Q4H PRN IV SEVERE PAIN LEVEL 7-10 Last administered on 06/17/18 09:32; Admin Dose 1 MG; Start 06/14/18 at 04:30 Lorazepam (Ativan) 1 mg Q4H PRN IV ANXIETY Last administered on 06/14/18 23:29; Admin Dose 1 MG; Start 06/14/18 at 04:30 Ferric Sodium Gluconate Complex 125 mg/Sodium Chloride 110 ml @ 110 mls/hr DAILY@1300 IVPB Last administered on 06/17/18 12:40; Admin Dose 110 MLS/HR; Start 06/14/18 at 13:00; Stop 06/18/18 at 13:59 Albuterol/ Ipratropium (Duoneb) 3 ml Q8H RESP THERAPY HHN Last administered on 06/16/18 23:09; Admin Dose 3 ML; Start 06/15/18 at 14:00 Gabapentin (Neurontin) 200 mg TID PO Last administered on 06/17/18 13:03; A dmin Dose 200 MG; Start 06/15/18 at 13:00 Aripiprazole (Abilify) 2 mg DAILY PO Last administered on 06/17/18 08:22; Admin Dose 2 MG; Start 06/15/18 at 14:00 Insulin Aspart (Novolog Insulin Pen) 8 unit WITH MEALS SC Last administered on 06/17/18 12:46; Admin Dose 8 UNIT; Start 06/16/18 at 08:00 Insulin Glargine (Lantus) 25 units DAILY@2000 SC Last administered on 06/16/18 21:04; Admin Dose 25 UNITS; Start 06/15/18 at 20:00 Benazepril HCl (Lotensin) 10 mg DAILY PO Last administered on 06/17/18 08:24; Admin Dose 10 MG; Start 06/17/18 at 09:00 Furosemide (Lasix) 80 mg BID DIURETICS PO Last administered on 06/17/18 06:44; Admin Dose 80 MG; Start 06/16/18 at 18:00 Atorvastatin Calcium (Lipitor) 80 mg HS PO Last administered on 06/16/18 21:00; Admin Dose 80 MG; Start 06/16/18 at 21:00 ALYSA HEIN NP Jun 17, 2018 13:16
[2018-06-17 13:48] VITALS: BP 94/51; PULSE 76; RESP 20
[2018-06-17] MEDS: morphine 2 MG INJ IV PRN (14:39)
--- NOTE | 2018-06-17 15:43 | CONS ---
Assessment/Plan Assessment/Plan Hospital Course (Demo Recall) ID PROGRESS NOTE CURRENT ABX: DAY # => Vanco IV 24H INTERVAL SUMMARY * Much improved, feeling better, no fevers, VSS, NAD * DC planning in process DIAGNOSTIC IMAGING * 06/17/18 CXR: MICRO/OTHER * Blood cultures negative, wound cx + Staph PHYSICAL EXAMINATION: GENERAL: VSS, NAD, obese HEENT: AT, NC, anicteric, NECK: Supple, CHEST: Equal chest rise bilaterally, without dyspnea on observation HEART: Pulse RRR ABDOMEN: Soft / NT : Deferred EXTREMITIES: Warm, edema/erythema == see photos = left DSG c/d/i SKIN: No rash, no diaphoresis ID ASSESSMENT 63 yo M admit with: 1. Left lower extremity cellulitis/ulceration s/p debridement at bedside 2. End-stage renal disease, hemodialysis dependent/L AVF 3. Diabetes 4. Morbid obesity 5. Coronary artery disease, history of AICD * Hx of Mixed systolic/diastolic HF -> EF ~45% 5. Poorly controlled diabetes. 6. Hypertension. 7. End-stage renal disease, hemodialysis dependent. 8. Peripheral arterial disease status post bypass surgeries status post right foot partial amputation 9. Hx of IAN / obesity hypoventilation (-)MRSA Nares ABX ALLERGIES: None to ABX INVASIVES: PIV CURRENT ABX: DAY # => Vanco IV ID RECOMMENDATIONS/PLAN: 1. Continue Vanco to complete 14 days 2. DC planning -- may DC when cleared by primary on ABX Consultation Date/Type/Reason Admit Date/Time Jun 12, 2018 at 12:13 Initial Consult Date 06/16/18 Requesting Provider: LAURA AHN MD Date/Time of Note DATE: 06/17/18 TIME: 15:37 Exam/Review of Systems Exam Vitals Vital Signs Date Temp Pulse Resp B/P (MAP) Pulse Ox O2 O2 Flow FiO2 Time Delivery Rate 06/17/18 97.7 76 20 94/51 (65) 99 13:48 06/17/18 Nasal 2.0 08:01 Cannula 06/16/18 21 09:05 Intake and Output 06/16/18 06/16/18 06/17/18 1515:00 23:00 07:00 IntakeIntake Total 480 ml 330 ml OutputOutput Total 2600 ml BalanceBalance -2600 ml 480 ml 330 ml Results Result Diagram: 06/17/18 0530 06/17/18 0530 Results 24hrs Laboratory Tests Test 06/16/18 17:35 06/16/18 20:58 06/17/18 05:30 06/17/18 07:48 Bedside Glucose 119 131 298 H White Blood Count 8.5 Red Blood Count 3.46 L Hemoglobin 10.5 L Hematocrit 34.6 L Mean Corpuscular 100.0 Volume Mean Corpuscular 30.3 Hemoglobin Mean Corpuscular 30.3 L Hemoglobin Concent Red Cell 14.0 Distribution Width Platelet Count 247 Mean Platelet Volume 10.7 H Immature 0.500 H Granulocytes % Neutrophils % 71.3 Lymphocytes % 16.6 Monocytes % 7.3 Eosinophils % 3.5 Basophils % 0.8 Nucleated Red Blood 0.0 Cells % Immature 0.040 H Granulocytes # Neutrophils # 6.1 Lymphocytes # 1.4 Monocytes # 0.6 Eosinophils # 0.3 Basophils # 0.1 Nucleated Red Blood 0.0 Cells # Sodium Level 138 Potassium Level 5.0 Chloride Level 100 Carbon Dioxide Level 29 Anion Gap 9 Blood Urea Nitrogen 50 H Creatinine 3.54 H Est Glomerular 18 L Filtrat Rate mL/min Glucose Level 291 H Calcium Level 8.6 Test 06/17/18 12:36 Bedside Glucose 281 H Medications Medication Current Medications Vancomycin HCl (Vanco Iv Per Pharmacy) VANCOMYCIN PER PHARMACY PER PROTOCOL XX ; Start 06/12/18 at 01:00 Morphine Sulfate (morphine) 2 mg Q4H PRN IV moderte PAIN LEVEL 5-7 Last administered on 06/17/18at 14:39; Admin Dose 2 MG; Start 06/12/18 at 01:00 Morphine Sulfate (morphine) 4 mg Q4H PRN IV SEVERE PAIN LEVEL 7-10 Last administered on 06/14/18at 10:55; Admin Dose 4 MG; Start 06/12/18 at 01:00 Ondansetron HCl (Zofran Inj) 4 mg Q6H PRN IV NAUSEA AND/OR VOMITING Last administered on 06/16/18at 21:42; Admin Dose 4 MG; Start 06/12/18 at 01:00 Miscellaneous Information 1 ea NOTE XX ; Start 06/12/18 at 01:30 Glucose (Glutose) 15 gm Q15M PRN PO DECREASED GLUCOSE; Start 06/12/18 at 01:30 Glucose (Glutose) 22.5 gm Q15M PRN PO DECREASED GLUCOSE; Start 06/12/18 at 01:30 Dextrose (D50w Syringe) 25 ml Q15M PRN IV DECREASED GLUCOSE; Start 06/12/18 at 01:30 Dextrose (D50w Syringe) 50 ml Q15M PRN IV DECREASED GLUCOSE; Start 06/12/18 at 01:30 Glucagon (Glucagen) 1 mg Q15M PRN IM DECREASED GLUCOSE; Start 06/12/18 at 01:30 Glucose (Glutose) 15 gm Q15M PRN BUCCAL DECREASED GLUCOSE; Start 06/12/18 at 01:30 Aspirin (Halfprin) 81 mg DAILY PO Last administered on 06/17/18 08:23; Admin Dose 81 MG; Start 06/13/18 at 09:00 Carvedilol (Coreg) 12.5 mg DAILY PO Last administered on 06/17/18 08:23; Admin Dose 12.5 MG; Start 06/13/18 at 09:00 Clopidogrel Bisulfate (plaVIX) 75 mg DAILY PO Last administered on 06/17/18 08:22; Admin Dose 75 MG; Start 06/13/18 at 09:00 Docusate Sodium (Colace) 250 mg BID PO Last administered on 06/17/18 08:23; Admin Dose 250 MG; Start 06/12/18 at 21:00 Fenofibrate (Tricor) 145 mg DAILY PO Last administered on 06/17/18 08:23; Admin Dose 145 MG; Start 06/13/18 at 09:00 Sevelamer Carbonate (Renvela) 1.6 gm WITH MEALS PO Last administered on 06/17/18 08:24; Admin Dose 1.6 GM; Start 06/12/18 at 18:00 Pantoprazole (Protonix Tab) 40 mg DAILY@0600 PO Last administered on 06/17/18 05:47; Admin Dose 40 MG; Start 06/13/18 at 06:00 Diagnostic Test (Pha) (Accu-Chek) 1 ea 02 XX ; Start 06/13/18 at 02:00 Insulin Aspart (Novolog Insulin Pen) NOVOLOG *MILD* ALGORITHM WITH MEALS BED TIME SC Last administered on 06/17/18 12:45; Admin Dose 4 UNIT; Start 06/12/18 at 18:00 Silver Sulfadiazine (Thermazene 1% 25 Gm) 1 applic DAILY TOP Last administered on 06/17/18 08:24; Admin Dose 1 APPLIC; Start 06/12/18 at 14:00 Sodium Hypochlorite (Dakin'S (Dilute )) 1 applic DAILY IRR Last administered on 06/17/18 08:24; Admin Dose 1 APPLIC; Start 06/14/18 at 09:00 Collagenase (Santyl) 1 applic DAILY TOP Last administered on 06/17/18 08:24; Admin Dose 1 APPLIC; Start 06/14/18 at 09:00 Diphenhydramine HCl (Benadryl) 25 mg Q8H PRN PO ITCHING Last administered on 06/13/18 22:06; Admin Dose 25 MG; Start 06/13/18 at 21:30 Hydromorphone HCl (Dilaudid) 1 mg Q4H PRN IV SEVERE PAIN LEVEL 7-10 Last administered on 06/17/18 09:32; Admin Dose 1 MG; Start 06/14/18 at 04:30 Lorazepam (Ativan) 1 mg Q4H PRN IV ANXIETY Last administered on 06/14/18 23:29; Admin Dose 1 MG; Start 06/14/18 at 04:30 Ferric Sodium Gluconate Complex 125 mg/Sodium Chloride 110 ml @ 110 mls/hr DAILY@1300 IVPB Last administered on 06/17/18 12:40; Admin Dose 110 MLS/HR; Start 06/14/18 at 13:00; Stop 06/18/18 at 13:59 Albuterol/ Ipratropium (Duoneb) 3 ml Q8H RESP THERAPY HHN Last administered on 06/16/18 23:09; Admin Dose 3 ML; Start 06/15/18 at 14:00 Gabapentin (Neurontin) 200 mg TID PO Last administered on 06/17/18 13:03; Admin Dose 200 MG; Start 06/15/18 at 13:00 Aripiprazole (Abilify) 2 mg DAILY PO Last administered on 06/17/18 08:22; Admin Dose 2 MG; Start 06/15/18 at 14:00 Insulin Aspart (Novolog Insulin Pen) 8 unit WITH MEALS SC Last administered on 06/17/18 12:46; Admin Dose 8 UNIT; Start 06/16/18 at 08:00 Insulin Glargine (Lantus) 25 units DAILY@2000 SC Last administered on 06/16/18at 21:04; Admin Dose 25 UNITS; Start 06/15/18 at 20:00 Benazepril HCl (Lotensin) 10 mg DAILY PO Last administered on 06/17/18at 08:24; Admin Dose 10 MG; Start 06/17/18 at 09:00 Furosemide (Lasix) 80 mg BID DIURETICS PO Last administered on 06/17/18at 06:44; Admin Dose 80 MG; Start 06/16/18 at 18:00 Atorvastatin Calcium (Lipitor) 80 mg HS PO Last administered on 06/16/18at 21:00; Admin Dose 80 MG; Start 06/16/18 at 21:00 ALYSA HEIN NP Jun 17, 2018 15:43
[2018-06-17 20:17] VITALS: BP 92/51; PULSE 75; RESP 20
[2018-06-17] MEDS: ATORVASTATIN 80 MG TAB PO SCH (21:00)
[2018-06-17] MEDS: INSULIN GLARGINE [LANTus] (100 UNITS/ML) SYG SC SCH (21:01)
[2018-06-18] MEDS: ALBUTEROL/IPRATROPIUM (NEB) 3 ML AMP HHN SCH ×3 (01:06→15:08)
[2018-06-18 01:46] VITALS: BP 77/51; PULSE 80; RESP 20
[2018-06-18] MEDS: ACCU-CHEK XX SCH (02:00)
[2018-06-18] MEDS ORDERED: SOD CHLORIDE 0.9% 500 ML IV ONE (02:00)
[2018-06-18 03:04] VITALS: BP 97/52; PULSE 80; RESP 20
[2018-06-18] MEDS: HYDROmorphONE 1 MG/ML SYG IV PRN ×5 (03:30→20:34)
[2018-06-18] MEDS: FUROSEMIDE 40 MG TAB PO SCH ×2 (06:43→17:46)
[2018-06-18] MEDS: PANTOPRAZOLE (EC) 40 MG TAB PO SCH (06:43)
[2018-06-18 06:52] VITALS: BP 103/57; PULSE 78; RESP 18
--- NOTE | 2018-06-18 07:30 | HKNOTE ---
DATE OF SERVICE: HISTORY OF PRESENT ILLNESS: The patient is 63 years old who has a past medical history of diabetes, peripheral neuropathy, seizure-like activity. [facility] MEDICATIONS: 1. Include Lotensin 10 mg once a day. 2. Lipitor 80 mg once a day. 3. Lasix 80 mg twice a day. 4. Insulin NovoLog 8 units with meals subcutaneously. 5. Lantus 25 mg subcutaneously once a day. 6. Albuterol inhaler. 7. Abilify 2 mg. 8. Dilaudid 1 mg every 4 hours as needed. 9. Ativan 1 mg every 4 hours as needed. 10. Aspirin 81 mg once a day. 11. Plavix 75 mg once a day. 12. Coreg 12.5 mg once a day. 13. TriCor 145 mg once a day. 14. Protonix 40 mg once a day. 15. Morphine sulfate 2 mg every 4 hours as needed. PAST MEDICAL HISTORY: Includes chronic obstructive pulmonary disease, obesity, recurrent syncopal at tack, memory disorder, coronary artery disease, diabetes type 2, diabetic neuropathy, peripheral vasc ular disease, congestive heart failure, osteomyelitis, anemia, cellulitis. PHYSICAL EXAMINATION: GENERAL: Today, the patient is alert, awake, oriented. CRANIAL NERVES: Cranial nerve II: Pupils equal on both sides, reactive to light. Cranial nerves II I, IV and : Extraocular muscles are intact without nystagmus. Cranial nerve V: Equal sensation t o face. Cranial nerve VII: Symmetrical face. Cranial nerve VIII: Decreased hearing bilaterally. Cranial nerve IX and X: Elevates palate. Cranial nerve XI: Elevates shoulder 5/5. Cranial nerve X II: With straight tongue. MOTOR: Moving both upper and lower extremities against gravity without difficulty. SENSATION: Decreased for glove and sock for light touch and temperature. COORDINATION: Ebhuoy-[id number] test intact. HEART: Regular rate and rhythm. LUNGS: Equal breath sounds. ABDOMEN: Soft, relaxed. ASSESSMENT AND PLAN: 1. The patient is 63 years old status post multiple syncopal attack. 2. The patient could not have MRI. Will discharge the patient and follow up on the clinic as an out patient. 3. Peripheral neuropathy, probably secondary to diabetes. We will follow up the patient with nerve conduction study and electromyogram. 4. Status post diabetic ulcers with infection, status post antibiotic. 5. Stroke prophylaxis in the form of aspirin as well as Plavix. 6. Underlying dyslipidemia in which the patient is on TriCor 145 mg once a day. Again, thank you, Dr. Ahn, for asking me to see the patient with you. Dictated By: CELESTINA BORGES MD NA/NTS Conf#: [id number] DID#: [id number] CC: DANISH MCDERMOTT MD; LAURA AHN MD;*EndCC*
[2018-06-18 07:46] VITALS: BP 95/53; PULSE 77; RESP 20
[2018-06-18] MEDS: DOCUSATE SODIUM 250 MG CAP PO SCH ×2 (08:08→20:37)
[2018-06-18] MEDS: ASPIRIN (EC) 81 MG TAB PO SCH (08:08)
[2018-06-18] MEDS: CLOPIDOGREL 75 MG TAB PO SCH (08:08)
[2018-06-18] MEDS: GABAPENTIN 100 MG CAP PO SCH ×3 (08:09→20:37)
[2018-06-18] MEDS: SEVELAMER CARBONATE 0.8 GM PKT PO SCH ×3 (08:09→17:45)
[2018-06-18] MEDS: SILVER SULFADIAZINE 1% 25 GM CR TOP SCH (08:11)
[2018-06-18] MEDS: SODIUM HYPOCHLORITE (1/40) 1 LITER BTL IRR SCH (08:12)
[2018-06-18] MEDS: COLLAGENASE 5 GM (UD JAR) TOP SCH (08:12)
[2018-06-18] MEDS: INSULIN ASPART [NOVOLOG] 3 ML PEN SC SCH ×7 (08:14→20:46)
[2018-06-18] MEDS: ARIPIPRAZOLE 2 MG TAB PO SCH (08:22)
[2018-06-18] MEDS: FENOFIBRATE 145 MG TAB PO SCH (08:22)
--- NOTE | 2018-06-18 11:44 | PN ---
Date/Time of Note Date/Time of Note DATE: 06/18/18 TIME: 11:35 Assessment/Plan VTE Prophylaxis Risk score (from Nsg)>0 risk: 7 SCD applied (from Ns): No SCD contraindicated: patient refusal Pharmacological prophylaxis: LMWH Lines/Catheters IV Catheter Type (from Nrs): Mid Line Central line still needed: No Urinary Cath still in place: No Reason Cath still needed: urinary retention Assessment/Plan Hospital Course After debridement the wound of the left leg is healing slowly but there is a progress. Patient is to be followed by podiatry DrSherry and wound care nurse at home. He needs hospital bed and nebulizer at home. Patient with a condition that the previous time in the hospital bed was delivered it was very uncomfortable and returned it. It is advisable for the case management to show the pictures and discussed with the patient before delivering what kind of bed is going to go home. 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 Continue hemodialysis as it was before. Vancomycin weekly during dialysis I plan to continue for another 4 weeks. Weekly. Assessment/Plan 1.Left foot ulcer after second-degree burn for approximately 7-8 days duration at home by accidentally spilling that boiling oil to the left foot according to ., Dr. Cabrera is following the patient and the debridement already was done Swelling of the left foot with debridement of the post bone wound of the left foot currently dressed,with d/c and pain. 2.DM type 2-out of control-unable to provide information how much insulin he got yesterday. Better controlled after his more tight measurement and insulin use 3.-Cellulitis of left lower extremity. Continue broad-spectrum antibiotics. Dr. Schilling,infection disease consultation is following . 4.CKD stage 5-discussed with Dr. Martin,about hemodialysis. 5.Anemia of chronic disease-s/p multiple units of prbc Tx. 6.CHF exacerbation,syst.and diastolic. 7.Osteomyelitis of the metatarsal(Hx )on the right food.Sepsis- hx of cellu litis of right foot with s/p of distal amputation. S/P multiple vascular and debridement surgeries of feet. 8.Pain syndrome 9.Severe diabetic ophthalmo-neuro and nephropathy 10. Severe PAD-status post multiple vascular procedures including shunting. 11.S/P ICD implantation-will be rechecked cardiology consult requested. 12.S/P recurrent syncopal episodes, clinical deaths, resuscitations, intubation, mechanical ventilation and successful extubation 13. Hx of possible seizure d/o 14.MD and memory impairment, anxiety,noncompliance. 15.Inability to control eating impulses. Increased appetite-with no intention and capacity to control. 16.Severe peripheral vascular disease.S/P multiple vascular procedures. 17. Possible bipolar disorder. Very poor emotional control. 18.Severe CAD; status post multiple PTCAs.s/p AICD 19.Memory impairment 20.C02 retention in the past. Will recheck ABG. BIPAP refused in the emergency room. 21.Multiorgan failure episodes in the past recovered well. 22.More irrational thinking and abnormal behavior-in the past now recovered well. Was in [place] for months recently relocated to [place] back 23.Recurrent syncopal vs vent.fib. vs cardiac arrest vs seizure episodes,possible all of them with multiple intubations and Mechanical ventilation prior to ICD implantation. 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 Was stopped. 26.COPD exacerbation with Hx of severe respiratory failure and wheezing ; s/p multiple intubations and BIPAP use. Add bronchodilator therapy. Currently on home oxygen and using her nebulizers at home. 27. Morbid obesity with snoring with apnea on BiPAP at home. 28. Deconditioning 29. Severe constipation Incomplete information. The patient discharge was postponed due to of inability to arrange outpatient hemodialysis and transferred to bed to patient's home. I hope will complete that tomorrow. Result Diagram: 06/18/18 0546 06/18/18 0546 Results 24hrs Laboratory Tests Test 06/17/18 12:36 06/17/18 17:31 06/17/18 21:00 06/18/18 05:46 Bedside Glucose 281 H 185 268 H White Blood Count 8.6 Red Blood Count 3.51 L Hemoglobin 10.6 L Hematocrit 35.0 L Mean Corpuscular 99.7 Volume Mean Corpuscular 30.2 Hemoglobin Mean Corpuscular 30.3 L Hemoglobin Concent Red Cell 14.0 Distribution Width Platelet Count 256 Mean Platelet Volume 10.8 H Immature 0.300 Granulocytes % Neutrophils % 70.0 Lymphocytes % 17.0 Monocytes % 7.1 Eosinophils % 4.4 Basophils % 1.2 Nucleated Red Blood 0.0 Cells % Immature 0.030 Granulocytes # Neutrophils # 6.0 Lymphocytes # 1.5 Monocytes # 0.6 Eosinophils # 0.4 Basophils # 0.1 Nucleated Red Blood 0.0 Cells # Sodium Level 136 Potassium Level 5.2 H Chloride Level 96 L Carbon Dioxide Level 26 Anion Gap 14 H Blood Urea Nitrogen 75 H Creatinine 5.73 #H Est Glomerular 10 L Filtrat Rate mL/min Glucose Level 220 Lactic Acid Level 1.0 Calcium Level 8.4 Test 06/18/18 08:08 Bedside Glucose 208 Subjective 24 Hr Interval Summary Free Text/Dictation The patient had a low blood pressure at night. Fluid bolus was given. Systolic blood pressure now is appropriate. The patient is angry that hospital visit was not delivered home. Discussed. (The latter to the caser up if possible to make that hospital like bed will be transferred to home otherwise he is unable to sleep comfortably in so-called Medicare covered hospital bed. Constitutional: requiring IVF, requiring O2; No no complaints, No improved, No chills, No diaphoresis, No disoriented, No febrile, No poor po, No other Eyes: visual change; No no complaints, No pain, No discharge, No redness, No other ENT: congestion; No no complaints, No bleeding, No pain, No discharge, No dysphagia, No sore throat, No other Respiratory: cough, pleuritic pain, shortness of breath; No no complaints, No pain, No sputum, No wheezing, No other Cardiovascular: chest pain, orthopenea, palpitations, paroxysmal nocturnal dyspnea; No no complaints, No edema, No lightheadedness, No other Gastrointestinal: constipation, flatus, nausea, passing stool; No no complaints, No pain, No blood, No decreased appetite, No diarrhea, No vomiting, No other Genitourinary: dysuria, flank pain; No no complaints, No bleeding, No discharge, No hematuria, No other Musculoskeletal: back pain, bone/joint pain, neck pain; No no complaints, No restricted range of motion, No swelling, No other Skin: rash; No no complaints, No bruising, No erythema, No laceration, No pruritis, No skin lesions, No other Neurologic: confusion, dizziness, headache; No no complaints, No focal-weakness, No syncope, No seizure, No other Endocrine: dry skin; No no complaints, No polyuria, No polydypsia, No temp intolerance, No other Lymphatic: No no complaints, No adenopathy, No tender nodes, No lymphadema, No other Psychological: anxiety; No no complaints, No nl mood/affect, No confusion, No depression, No suicidal, No other Exam/Review of Systems Exam Vitals Vital Signs Date Temp Pulse Resp B/P (MAP) Pulse Ox O2 O2 Flow FiO2 Time Delivery Rate 06/18/18 2.0 09:03 06/18/18 60 18 92 Nasal 09:03 Cannula 06/18/18 98.0 95/53 (67) 07:46 06/16/18 21 09:05 Intake and Output 06/17/18 06/17/18 06/18/18 1515:00 23:00 07:00 IntakeIntake Total 1440 ml 710 ml 300 ml BalanceBalance 1440 ml 710 ml 300 ml Constitutional: alert, oriented (Not following days.), well developed, distress, frail, obese; No non-verbal, No other Psych: anxiety, depression; No no complaints, No nl mood/affect, No confusion, No suicidal, No other Head: normocephalic, atraumatic; No lacerations, No hematomas, No other Eyes: EOMI, nl lids, PERRL, other (Pale conjunctiva.); No nl conjunctiva, No nl sclera, No icteric, No fundi, disc ENMT: No nl external ears & nose, No nl lips & teeth, No nl nasal mucosa & septum, No mucosa pink and moist, No intubated, No tympanic membranes, No other Neck: jvd, bruits, masses, nuchal rigidity; No supple, No non-tender, No thyromegaly, No other Respiratory: congested cough, crackles/rales, diminished breath sounds, wheezing; No clear to auscultation, No normal air movement, No intercostal retraction, No labored breathing, No respirations, No tactile fremitus, No other Cardiovascular: edema, jugular venous distention (JVD), murmurs/extra sounds, systolic murmur, other (ICD no changes.); No regular rate and rhythm, No nl pulses, No bruits, No diastolic murmur, No gallop, No irregular rhythm, No rub, No S3, No S4 Gastrointestinal: soft, bowel sounds, rebound or guarding; No nl liver, spleen, No non-tender, No ascites, No distended, No firm, No hepatomegaly, No mass, No splenomegaly, No surgical scars, No tender, No other Genitourinary - Male: nl penis, nl scrotum; No CVA tenderness, No discharge, No other Musculoskeletal: joint tenderness, muscle tone, muscle weakness; No nl extremities to inspection, No nl gait and stance, No range of motion, No spine non-tender, No swelling, No other Extremities: edema Neurological: CRISIS THERAPIST II-XII intact, DTR's symmetric, lethargic, numbness; No nl mental status, No nl speech, No nl strength, No confused, No focal weakness, No reflexes, No unresponsive, No other Results Results 24hrs Laboratory Tests Test 06/17/18 12:36 06/17/18 17:31 06/17/18 21:00 06/18/18 05:46 Bedside Glucose 281 H 185 268 H White Blood Count 8.6 Red Blood Count 3.51 L Hemoglobin 10.6 L Hematocrit 35.0 L Mean Corpuscular 99.7 Volume Mean Corpuscular 30.2 Hemoglobin Mean Corpuscular 30.3 L Hemoglobin Concent Red Cell 14.0 Distribution Width Platelet Count 256 Mean Platelet Volume 10.8 H Immature 0.300 Granulocytes % Neutrophils % 70.0 Lymphocytes % 17.0 Monocytes % 7.1 Eosinophils % 4.4 Basophils % 1.2 Nucleated Red Blood 0.0 Cells % Immature 0.030 Granulocytes # Neutrophils # 6.0 Lymphocytes # 1.5 Monocytes # 0.6 Eosinophils # 0.4 Basophils # 0.1 Nucleated Red Blood 0.0 Cells # Sodium Level 136 Potassium Level 5.2 H Chloride Level 96 L Carbon Dioxide Level 26 Anion Gap 14 H Blood Urea Nitrogen 75 H Creatinine 5.73 #H Est Glomerular 10 L Filtrat Rate mL/min Glucose Level 220 Lactic Acid Level 1.0 Calcium Level 8.4 Test 06/18/18 08:08 Bedside Glucose 208 Medications Medication Current Medications Vancomycin HCl (Vanco Iv Per Pharmacy) VANCOMYCIN PER PHARMACY PER PROTOCOL XX ; Start 06/12/18 at 01:00 Morphine Sulfate (morphine) 2 mg Q4H PRN IV moderte PAIN LEVEL 5-7 Last administered on 06/17/18 14:39; Admin Dose 2 MG; Start 06/12/18 at 01:00 Morphine Sulfate (morphine) 4 mg Q4H PRN IV SEVERE PAIN LEVEL 7-10 Last administered on 06/14/18 10:55; Admin Dose 4 MG; Start 06/12/18 at 01:00 Ondansetron HCl (Zofran Inj) 4 mg Q6H PRN IV NAUSEA AND/OR VOMITING Last administered on 06/16/18 21:42; Admin Dose 4 MG; Start 06/12/18 at 01:00 Miscellaneous Information 1 ea NOTE XX ; Start 06/12/18 at 01:30 Glucose (Glutose) 15 gm Q15M PRN PO DECREASED GLUCOSE; Start 06/12/18 at 01:30 Glucose (Glutose) 22.5 gm Q15M PRN PO DECREASED GLUCOSE; Start 06/12/18 at 01:30 Dextrose (D50w Syringe) 25 ml Q15M PRN IV DECREASED GLUCOSE; Start 06/12/18 at 01:30 Dextrose (D50w Syringe) 50 ml Q15M PRN IV DECREASED GLUCOSE; Start 06/12/18 at 01:30 Glucagon (Glucagen) 1 mg Q15M PRN IM DECREASED GLUCOSE; Start 06/12/18 at 01:30 Glucose (Glutose) 15 gm Q15M PRN BUCCAL DECREASED GLUCOSE; Start 06/12/18 at 01:30 Aspirin (Halfprin) 81 mg DAILY PO Last administered on 06/18/18 08:08; Admin Dose 81 MG; Start 06/13/18 at 09:00 Carvedilol (Coreg) 12.5 mg DAILY PO Last administered on 06/17/18 08:23; Admin Dose 12.5 MG; Start 06/13/18 at 09:00; Status Hold Clopidogrel Bisulfate (plaVIX) 75 mg DAILY PO Last administered on 06/18/18 08:08; Admin Dose 75 MG; Start 06/13/18 at 09:00 Docusate Sodium (Colace) 250 mg BID PO Last administered on 06/18/18 08:08; Admin Dose 250 MG; Start 06/12/18 at 21:00 Fenofibrate (Tricor) 145 mg DAILY PO Last administered on 06/18/18 08:22; Admin Dose 145 MG; Start 06/13/18 at 09:00 Sevelamer Carbonate (Renvela) 1.6 gm WITH MEALS PO Last administered on 06/18/18 08:09; Admin Dose 1.6 GM; Start 06/12/18 at 18:00 Pantoprazole (Protonix Tab) 40 mg DAILY@0600 PO Last administered on 06/18/18 06:43; Admin Dose 40 MG; Start 06/13/18 at 06:00 Diagnostic Test (Pha) (Accu-Chek) 1 ea 02 XX ; Start 06/13/18 at 02:00 Insulin Aspart (Novolog Insulin Pen) NOVOLOG *MILD* ALGORITHM WITH MEALS BEDTIME SC Last administered on 06/18/18 08:14; Admin Dose 2 UNIT; Start 06/12/18 at 18:00 Silver Sulfadiazine (Thermazene 1% 25 Gm) 1 applic DAILY TOP Last administered on 06/18/18 08:11; Admin Dose 1 APPLIC; Start 06/12/18 at 14:00 Sodium Hypochlorite (Dakin'S (Dilute )) 1 applic DAILY IRR Last administered on 06/18/18 08:12; Admin Dose 1 APPLIC; Start 06/14/18 at 09:00 Collagenase (Santyl) 1 applic DAILY TOP Last administered on 06/18/18 08:12; Admin Dose 1 APPLIC; Start 06/14/18 at 09:00 Diphenhydramine HCl (Benadryl) 25 mg Q8H PRN PO ITCHING Last administered on 06/13/18 22:06; Admin Dose 25 MG; Start 06/13/18 at 21:30 Hydromorphone HCl (Dilaudid) 1 mg Q4H PRN IV SEVERE PAIN LEVEL 7-10 Last administered on 06/18/18 08:00; Admin Dose 1 MG; Start 06/14/18 at 04:30 Lorazepam (Ativan) 1 mg Q4H PRN IV ANXIETY Last administered on 06/14/18 23:29; Admin Dose 1 MG; Start 06/14/18 at 04:30 Ferric Sodium Gluconate Complex 125 mg/Sodium Chloride 110 ml @ 110 mls/hr DAILY@1300 IVPB Last administered on 06/17/18 12:40; Admin Dose 110 MLS/HR; Start 06/14/18 at 13:00; Stop 06/18/18 at 13:59 Albuterol/ Ipratropium (Duoneb) 3 ml Q8H RESP THERAPY HHN Last administered on 06/18/18 09:01; Admin Dose 3 ML; Start 06/15/18 at 14:00 Gabapentin (Neurontin) 200 mg TID PO Last administered on 06/18/18 08:09; Admin Dose 200 MG; Start 06/15/18 at 13:00 Aripiprazole (Abilify) 2 mg DAILY PO Last administered on 06/18/18 08:22; Admin Dose 2 MG; Start 06/15/18 at 14:00 Insulin Aspart (Novolog Insulin Pen) 8 unit WITH MEALS SC Last administered on 06/18/18 08:15; Admin Dose 8 UNIT; Start 06/16/18 at 08:00 Insulin Glargine (Lantus) 25 units DAILY@2000 SC Last administered on 06/17/18 21:01; Admin Dose 25 UNITS; Start 06/15/18 at 20:00 Benazepril HCl (Lotensin) 10 mg DAILY PO Last administered on 06/17/18 08:24; Admin Dose 10 MG; Start 06/17/18 at 09:00; Status Hold Furosemide (Lasix) 80 mg BID DIURETICS PO Last administered on 06/18/18 06:43; Admin Dose 80 MG; Start 06/16/18 at 18:00 Atorvastatin Calcium (Lipitor) 80 mg HS PO Last administered on 06/17/18 21:00; Admin Dose 80 MG; Start 06/16/18 at 21:00 Miscellaneous Information (*Rx Drug Level Order Reminder*) MARAHO NIRAJ W/ AM LABS... 0500 ONCE XX ; Start 06/19/18 at 05:00; Stop 06/19/18 at 05:01 LAURA AHN MD Jun 18, 2018 11:44
--- NOTE | 2018-06-18 13:00 | PN ---
Date/Time of Note Date/Time of Note DATE: 06/18/18 TIME: 12:59 Assessment/Plan VTE Prophylaxis Risk score (from Ns)>0 risk: 3 SCD applied (from Nsg): No Lines/Catheters IV Catheter Type (from Nrs): Mid Line Central line still needed: Yes Urinary Cath still in place: No Assessment/Plan Assessment/Plan -Left diabetic foot ulcer, status post excisional debridement by Dr. Marshall, podiatry consultation. -Left foot 2nd degree burn -Cellulitis of left lower extremity. Continue broad-spectrum antibiotics. Dr. Schilling is following in infection disease consultation. -Peripheral vascular disease -Systolic and diastolic congestive heart failure -Coronary artery disease -AICD -Hemodialysis dependent end-stage renal disease. Dr. Martin is following in nephrology consultation. -Diabetes mellitus type 2 with neuropathy. Continue Lantus and pre-meal NovoLog. -Obesity Further recommendations based on clinical course. Plan of care discussed with Dr. Scanlon. Result Diagram: 06/18/18 0546 06/18/18 0546 Results 24hrs Laboratory Tests Test 06/17/18 17:31 06/17/18 21:00 06/18/18 05:46 06/18/18 08:08 Bedside Glucose 185 268 H 208 White Blood Count 8.6 Red Blood Count 3.51 L Hemoglobin 10.6 L Hematocrit 35.0 L Mean Corpuscular 99.7 Volume Mean Corpuscular 30.2 Hemoglobin Mean Corpuscular 30.3 L Hemoglobin Concent Red Cell 14.0 Distribution Width Platelet Count 256 Mean Platelet Volume 10.8 H Immature 0.300 Granulocytes % Neutrophils % 70.0 Lymphocytes % 17.0 Monocytes % 7.1 Eosinophils % 4.4 Basophils % 1.2 Nucleated Red Blood 0.0 Cells % Immature 0.030 Granulocytes # Neutrophils # 6.0 Lymphocytes # 1.5 Monocytes # 0.6 Eosinophils # 0.4 Basophils # 0.1 Nucleated Red Blood 0.0 Cells # Sodium Level 136 Potassium Level 5.2 H Chloride Level 96 L Carbon Dioxide Level 26 Anion Gap 14 H Blood Urea Nitrogen 75 H Creatinine 5.73 #H Est Glomerular 10 L Filtrat Rate mL/min Glucose Level 220 Lactic Acid Level 1.0 Calcium Level 8.4 Test 06/18/18 12:46 Bedside Glucose 252 H Subjective 24 Hr Interval Summary Free Text/Dictation 06/07/2018 entry Exam/Review of Systems Exam Vitals Vital Signs Date Temp Pulse Resp B/P (MAP) Pulse Ox O2 O2 Flow FiO2 Time Delivery Rate 06/18/18 2.0 09:03 06/18/18 60 18 92 Nasal 09:03 Cannula 06/18/18 98.0 95/53 (67) 07:46 06/16/18 21 09:05 Intake and Output 06/17/18 06/17/18 06/18/18 1515:00 23:00 07:00 IntakeIntake Total 1440 ml 710 ml 300 ml BalanceBalance 1440 ml 710 ml 300 ml Results Results 24hrs Laboratory Tests Test 06/17/18 17:31 06/17/18 21:00 06/18/18 05:46 06/18/18 08:08 Bedside Glucose 185 268 H 208 White Blood Count 8.6 Red Blood Count 3.51 L Hemoglobin 10.6 L Hematocrit 35.0 L Mean Corpuscular 99.7 Volume Mean Corpuscular 30.2 Hemoglobin Mean Corpuscular 30.3 L Hemoglobin Concent Red Cell 14.0 Distribution Width Platelet Count 256 Mean Platelet Volume 10.8 H Immature 0.300 Granulocytes % Neutrophils % 70.0 Lymphocytes % 17.0 Monocytes % 7.1 Eosinophils % 4.4 Basophils % 1.2 Nucleated Red Blood 0.0 Cells % Immature 0.030 Granulocytes # Neutrophils # 6.0 Lymphocytes # 1.5 Monocytes # 0.6 Eosinophils # 0.4 Basophils # 0.1 Nucleated Red Blood 0.0 Cells # Sodium Level 136 Potassium Level 5.2 H Chloride Level 96 L Carbon Dioxide Level 26 Anion Gap 14 H Blood Urea Nitrogen 75 H Creatinine 5.73 #H Est Glomerular 10 L Filtrat Rate mL/min Glucose Level 220 Lactic Acid Level 1.0 Calcium Level 8.4 Test 06/18/18 12:46 Bedside Glucose 252 H Medications Medication Current Medications Vancomycin HCl (Vanco Iv Per Pharmacy) VANCOMYCIN PER PHARMACY PER PROTOCOL XX ; Start 06/12/18 at 01:00 Morphine Sulfate (morphine) 2 mg Q4H PRN IV moderte PAIN LEVEL 5-7 Last adm inistered on 06/17/18at 14:39; Admin Dose 2 MG; Start 06/12/18 at 01:00 Morphine Sulfate (morphine) 4 mg Q4H PRN IV SEVERE PAIN LEVEL 7-10 Last administered on 06/14/18 10:55; Admin Dose 4 MG; Start 06/12/18 at 01:00 Ondansetron HCl (Zofran Inj) 4 mg Q6H PRN IV NAUSEA AND/OR VOMITING Last administered on 06/16/18 21:42; Admin Dose 4 MG; Start 06/12/18 at 01:00 Miscellaneous Information 1 ea NOTE XX ; Start 06/12/18 at 01:30 Glucose (Glutose) 15 gm Q15M PRN PO DECREASED GLUCOSE; Start 06/12/18 at 01:30 Glucose (Glutose) 22.5 gm Q15M PRN PO DECREASED GLUCOSE; Start 06/12/18 at 01:30 Dextrose (D50w Syringe) 25 ml Q15M PRN IV DECREASED GLUCOSE; Start 06/12/18 at 01:30 Dextrose (D50w Syringe) 50 ml Q15M PRN IV DECREASED GLUCOSE; Start 06/12/18 at 01:30 Glucagon (Glucagen) 1 mg Q15M PRN IM DECREASED GLUCOSE; Start 06/12/18 at 01:30 Glucose (Glutose) 15 gm Q15M PRN BUCCAL DECREASED GLUCOSE; Start 06/12/18 at 01:30 Aspirin (Halfprin) 81 mg DAILY PO Last administered on 06/18/18 08:08; Admin Dose 81 MG; Start 06/13/18 at 09:00 Carvedilol (Coreg) 12.5 mg DAILY PO Last administered on 06/17/18 08:23; Admin Dose 12.5 MG; Start 06/13/18 at 09:00; Status Hold Clopidogrel Bisulfate (plaVIX) 75 mg DAILY PO Last administered on 06/18/18 08:08; Admin Dose 75 MG; Start 06/13/18 at 09:00 Docusate Sodium (Colace) 250 mg BID PO Last administered on 06/18/18 08:08; Admin Dose 250 MG; Start 06/12/18 at 21:00 Fenofibrate (Tricor) 145 mg DAILY PO Last administered on 06/18/18 08:22; Admin Dose 145 MG; Start 06/13/18 at 09:00 Sevelamer Carbonate (Renvela) 1.6 gm WITH MEALS PO Last administered on 06/18/18 12:40; Admin Dose 1.6 GM; Start 06/12/18 at 18:00 Pantoprazole (Protonix Tab) 40 mg DAILY@0600 PO Last administered on 06/18/18 06:43; Admin Dose 40 MG; Start 06/13/18 at 06:00 Diagnostic Test (Pha) (Accu-Chek) 1 ea 02 XX ; Start 06/13/18 at 02:00 Insulin Aspart (Novolog Insulin Pen) NOVOLOG *MILD* ALGORITHM WITH MEALS BEDTIME SC Last administered on 06/18/18 12:48; Admin Dose 3 UNIT; Start 06/12/18 at 18:00 Silver Sulfadiazine (Thermazene 1% 25 Gm) 1 applic DAILY TOP Last administered on 06/18/18 08:11; Admin Dose 1 APPLIC; Start 06/12/18 at 14:00 Sodium Hypochlorite (Dakin'S (Dilute )) 1 applic DAILY IRR Last administered on 06/18/18 08:12; Admin Dose 1 APPLIC; Start 06/14/18 at 09:00 Collagenase (Santyl) 1 applic DAILY TOP Last administered on 06/18/18 08:12; Admin Dose 1 APPLIC; Start 06/14/18 at 09:00 Diphenhydramine HCl (Benadryl) 25 mg Q8H PRN PO ITCHING Last administered on 06/13/18 22:06; Admin Dose 25 MG; Start 06/13/18 at 21:30 Hydromorphone HCl (Dilaudid) 1 mg Q4H PRN IV SEVERE PAIN LEVEL 7-10 Last administered on 06/18/18 12:40; Admin Dose 1 MG; Start 06/14/18 at 04:30 Lorazepam (Ativan) 1 mg Q4H PRN IV ANXIETY Last administered on 06/14/18 23:29; Admin Dose 1 MG; Start 06/14/18 at 04:30 Ferric Sodium Gluconate Complex 125 mg/Sodium Chloride 110 ml @ 110 mls/hr DAILY@1300 IVPB Last administered on 06/17/18 12:40; Admin Dose 110 MLS/HR; Start 06/14/18 at 13:00; Stop 06/18/18 at 13:59 Albuterol/ Ipratropium (Duoneb) 3 ml Q8H RESP THERAPY HHN Last administered on 06/18/18 09:01; Admin Dose 3 ML; Start 06/15/18 at 14:00 Gabapentin (Neurontin) 200 mg TID PO Last administered on 06/18/18 08:09; Admin Dose 200 MG; Start 06/15/18 at 13:00 Aripiprazole (Abilify) 2 mg DAILY PO Last administered on 06/18/18 08:22; Admin Dose 2 MG; Start 06/15/18 at 14:00 Insulin Aspart (Novolog Insulin Pen) 8 unit WITH MEALS SC Last administered on 06/18/18 12:48; Admin Dose 8 UNIT; Start 06/16/18 at 08:00 Insulin Glargine (Lantus) 25 units DAILY@2000 SC Last administered on 06/17/18 21:01; Admin Dose 25 UNITS; Start 06/15/18 at 20:00 Benazepril HCl (Lotensin) 10 mg DAILY PO Last administered on 06/17/18 08:24; Admin Dose 10 MG; Start 06/17/18 at 09:00; Status Hold Furosemide (Lasix) 80 mg BID DIURETICS PO Last administered on 06/18/18 06:43; Admin Dose 80 MG; Start 06/16/18 at 18:00 Atorvastatin Calcium (Lipitor) 80 mg HS PO Last administered on 06/17/18 21:00; Admin Dose 80 MG; Start 06/16/18 at 21:00 Miscellaneous Information (*Rx Drug Level Order Reminder*) MARAHO NIRAJ W/ AM LABS... 0500 ONCE XX ; Start 06/19/18 at 05:00; Stop 06/19/18 at 05:01 BESSIE GALLARDO Jun 18, 2018 13:00
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
[2018-06-18] MEDS: SOD FERRIC GLUC COMPLX 125 MG in SOD CHLORIDE 0.9% 100 ML IVPB SCH (13:15)
[2018-06-18 14:30] VITALS: BP 93/56; PULSE 84; RESP 20
--- NOTE | 2018-06-18 16:17 | CONS ---
Assessment/Plan Assessment/Plan Hospital Course (Demo Recall) ID PROGRESS NOTE CURRENT ABX: DAY # => Vanco IV 06/18/18 0546 06/18/18 0546 24H INTERVAL SUMMARY * Awake, resting, pain issues ongoing -- with PRN pain meds onboard * Obese 63 yo M -- Overall improved, feeling better, no fevers, VSS, NAD * DC planning in process DIAGNOSTIC IMAGING * 06/17/18 CXR: MICRO/OTHER * Blood cultures negative, wound cx + Staph PHYSICAL EXAMINATION: GENERAL: VSS, NAD, obese HEENT: AT, NC, anicteric, NECK: Supple, CHEST: Equal chest rise bilaterally, without dyspnea on observation HEART: Pulse RRR ABDOMEN: Soft / NT : Deferred EXTREMITIES: Warm, edema/erythema == see photos = left DSG c/d/i SKIN: No rash, no diaphoresis ID ASSESSMENT 63 yo M admit with: 1. Left lower extremity cellulitis/ulceration s/p debridement at bedside 2. End-stage renal disease, hemodialysis dependent/L AVF 3. Diabetes 4. Morbid obesity 5. Coronary artery disease, history of AICD * Hx of Mixed systolic/diastolic HF -> EF ~45% 5. Poorly controlled diabetes. 6. Hypertension. 7. End-stage renal disease, hemodialysis dependent. 8. Peripheral arterial disease status post bypass surgeries status post right foot partial amputation 9. Hx of IAN / obesity hypoventilation (-)MRSA Nares ABX ALLERGIES: None to ABX INVASIVES: PIV CURRENT ABX: DAY # => Vanco IV ID RECOMMENDATIONS/PLAN: 1. Continue Vanco to complete 14 days 2. DC planning -- may DC when cleared by primary on ABX Consultation Date/Type/Reason Admit Date/Time Jun 12, 2018 at 12:13 Initial Consult Date 06/16/18 Requesting Provider: LAURA AHN MD Date/Time of Note DATE: 06/18/18 TIME: 16:15 Exam/Review of Systems Exam Vitals Vital Signs Date Temp Pulse Resp B/P (MAP) Pulse Ox O2 O2 Flow FiO2 Time Delivery Rate 06/18/18 61 17 93 Nasal 2.0 15:09 Cannula 06/18/18 97.5 93/56 (68) 14:30 06/16/18 21 09:05 Intake and Output 06/17/18 06/17/1819 1515:00 23:00 07:00 IntakeIntake Total 1440 ml 710 ml 300 ml BalanceBalance 1440 ml 710 ml 300 ml Results Result Diagram: 06/18/18 0546 06/18/18 0546 Results 24hrs Laboratory Tests Test 06/17/18 17:31 06/17/18 21:00 06/18/18 05:46 06/18/18 08:08 Bedside Glucose 185 268 H 208 White Blood Count 8.6 Red Blood Count 3.51 L Hemoglobin 10.6 L Hematocrit 35.0 L Mean Corpuscular 99.7 Volume Mean Corpuscular 30.2 Hemoglobin Mean Corpuscular 30.3 L Hemoglobin Concent Red Cell 14.0 Distribution Width Platelet Count 256 Mean Platelet Volume 10.8 H Immature 0.300 Granulocytes % Neutrophils % 70.0 Lymphocytes % 17.0 Monocytes % 7.1 Eosinophils % 4.4 Basophils % 1.2 Nucleated Red Blood 0.0 Cells % Immature 0.030 Granulocytes # Neutrophils # 6.0 Lymphocytes # 1.5 Monocytes # 0.6 Eosinophils # 0.4 Basophils # 0.1 Nucleated Red Blood 0.0 Cells # Sodium Level 136 Potassium Level 5.2 H Chloride Level 96 L Carbon Dioxide Level 26 Anion Gap 14 H Blood Urea Nitrogen 75 H Creatinine 5.73 #H Est Glomerular 10 L Filtrat Rate mL/min Glucose Level 220 Lactic Acid Level 1.0 Calcium Level 8.4 Test 06/18/18 12:46 Bedside Glucose 252 H Medications Medication Current Medications Vancomycin HCl (Vanco Iv Per Pharmacy) VANCOMYCIN PER PHARMACY PER PROTOCOL XX ; Start 06/12/18 at 01:00 Morphine Sulfate (morphine) 2 mg Q4H PRN IV moderte PAIN LEVEL 5-7 Last administered on 06/17/18at 14:39; Admin Dose 2 MG; Start 06/12/18 at 01:00 Ondansetron HCl (Zofran Inj) 4 mg Q6H PRN IV NAUSEA AND/OR VOMITING Last administered on 06/16/18at 21:42; Admin Dose 4 MG; Start 06/12/18 at 01:00 Miscellaneous Information 1 ea NOTE XX ; Start 06/12/18 at 01:30 Glucose (Glutose) 15 gm Q15M PRN PO DECREASED GLUCOSE; Start 06/12/18 at 01:30 Glucose (Glutose) 22.5 gm Q15M PRN PO DECREASED GLUCOSE; Start 06/12/18 at 01:30 Dextrose (D50w Syringe) 25 ml Q15M PRN IV DECREASED GLUCOSE; Start 06/12/18 at 01:30 Dextrose (D50w Syringe) 50 ml Q15M PRN IV DECREASED GLUCOSE; Start 06/12/18 at 01:30 Glucagon (Glucagen) 1 mg Q15M PRN IM DECREASED GLUCOSE; Start 06/12/18 at 01:30 Glucose (Glutose) 15 gm Q15M PRN BUCCAL DECREASED GLUCOSE; Start 06/12/18 at 01:30 Aspirin (Halfprin) 81 mg DAILY PO Last administered on 06/18/18 08:08; Admin Dose 81 MG; Start 06/13/18 at 09:00 Carvedilol (Coreg) 12.5 mg DAILY PO Last administered on 06/17/18 08:23; Admin Dose 12.5 MG; Start 06/13/18 at 09:00; Status Hold Clopidogrel Bisulfate (plaVIX) 75 mg DAILY PO Last administered on 06/18/18 08:08; Admin Dose 75 MG; Start 06/13/18 at 09:00 Docusate Sodium (Colace) 250 mg BID PO Last administered on 06/18/18 08:08; Admin Dose 250 MG; Start 06/12/18 at 21:00 Fenofibrate (Tricor) 145 mg DAILY PO Last administered on 06/18/18 08:22; Admin Dose 145 MG; Start 06/13/18 at 09:00 Sevelamer Carbonate (Renvela) 1.6 gm WITH MEALS PO Last administered on 06/18/18 12:40; Admin Dose 1.6 GM; Start 06/12/18 at 18:00 Pantoprazole (Protonix Tab) 40 mg DAILY@0600 PO Last administered on 06/18/18 06:43; Admin Dose 40 MG; Start 06/13/18 at 06:00 Diagnostic Test (Pha) (Accu-Chek) 1 ea 02 XX ; Start 06/13/18 at 02:00 Insulin Aspart (Novolog Insulin Pen) NOVOLOG *MILD* ALGORITHM WITH MEALS BEDTIME SC Last administered on 06/18/18at 12:48; Admin Dose 3 UNIT; Start 06/12/18 at 18:00 Silver Sulfadiazine (Thermazene 1% 25 Gm) 1 applic DAILY TOP Last administered on 06/18/18 08:11; Admin Dose 1 APPLIC; Start 06/12/18 at 14:00 Sodium Hypochlorite (Dakin'S (Dilute )) 1 applic DAILY IRR Last administered on 06/18/18 08:12; Admin Dose 1 APPLIC; Start 06/14/18 at 09:00 Collagenase (Santyl) 1 applic DAILY TOP Last administered on 06/18/18 08:12; Admin Dose 1 APPLIC; Start 06/14/18 at 09:00 Diphenhydramine HCl (Benadryl) 25 mg Q8H PRN PO ITCHING Last administered on 06/13/18 22:06; Admin Dose 25 MG; Start 06/13/18 at 21:30 Hydromorphone HCl (Dilaudid) 1 mg Q4H PRN IV SEVERE PAIN LEVEL 7-10 Last administered on 06/18/18 12:40; Admin Dose 1 MG; Start 06/14/18 at 04:30 Lorazepam (Ativan) 1 mg Q4H PRN IV ANXIETY Last administered on 06/14/18 23:29; Admin Dose 1 MG; Start 06/14/18 at 04:30 Albuterol/ Ipratropium (Duoneb) 3 ml Q8H RESP THERAPY HHN Last administered on 06/18/18 15:08; Admin Dose 3 ML; Start 06/15/18 at 14:00 Gabapentin (Neurontin) 200 mg TID PO Last administered on 06/18/18 13:15; Ad min Dose 200 MG; Start 06/15/18 at 13:00 Aripiprazole (Abilify) 2 mg DAILY PO Last administered on 06/18/18 08:22; Admin Dose 2 MG; Start 06/15/18 at 14:00 Insulin Aspart (Novolog Insulin Pen) 8 unit WITH MEALS SC Last administered on 06/18/18 12:48; Admin Dose 8 UNIT; Start 06/16/18 at 08:00 Insulin Glargine (Lantus) 25 units DAILY@2000 SC Last administered on 06/17/18 21:01; Admin Dose 25 UNITS; Start 06/15/18 at 20:00 Benazepril HCl (Lotensin) 10 mg DAILY PO Last administered on 06/17/18at 08:24; Admin Dose 10 MG; Start 06/17/18 at 09:00; Status Hold Furosemide (Lasix) 80 mg BID DIURETICS PO Last administered on 06/18/18at 06:43; Admin Dose 80 MG; Start 06/16/18 at 18:00 Atorvastatin Calcium (Lipitor) 80 mg HS PO Last administered on 06/17/18at 21:00; Admin Dose 80 MG; Start 06/16/18 at 21:00 Miscellaneous Information (*Rx Drug Level Order Reminder*) POLI HEALY W/ AM LABS... 0500 ONCE XX ; Start 06/19/18 at 05:00; Stop 06/19/18 at 05:01 ALYSA HEIN NP Jun 18, 2018 16:17
--- NOTE | 2018-06-18 19:04 | CONS ---
Assessment/Plan Assessment/Plan Hospital Course (Demo Recall) 1. End-stage renal disease on maintenance hemodialysis Tuesday and Tuesday. He is due for a dialysis treatment tomorrow which I will order. 2. Left foot cellulitis/ulceration 3. Type 2 diabetes mellitus 4. Hypertension 5. History of congestive heart failure. 6. Coronary artery disease 7. Peripheral artery disease Consultation Date/Type/Reason Admit Date/Time Jun 12, 2018 at 12:13 Initial Consult Date 06/16/18 Type of Consult Nephrology Requesting Provider: LAURA AHN MD Date/Time of Note DATE: 06/18/18 TIME: 18:55 24 HR Interval Summary Free Text/Dictation This patient is being seen in nephrologic follow-up. He is awake and alert. He has no new complaints. Constitutional: no complaints, improved Exam/Review of Systems Exam Vitals Vital Signs Date Temp Pulse Resp B/P (MAP) Pulse Ox O2 O2 Flow FiO2 Time Delivery Rate 06/18/18 61 17 93 Nasal 2.0 15:09 Cannula 06/18/18 97.5 93/56 (68) 14:30 06/16/18 21 09:05 Intake and Output 06/17/18 06/17/18 06/18/18 1515:00 23:00 07:00 IntakeIntake Total 1440 ml 710 ml 300 ml BalanceBalance 1440 ml 710 ml 300 ml Constitutional: alert, oriented, frail, obese Respiratory: clear to auscultation, normal air movement Cardiovascular: regular rate and rhythm, edema Gastrointestinal: soft, non-tender, distended Extremities: edema Results Result Diagram: 06/18/18 0546 06/18/18 0546 Results 24hrs Laboratory Tests Test 06/17/18 21:00 06/18/18 05:46 06/18/18 08:08 06/18/18 12:46 Bedside Glucose 268 H 208 252 H White Blood Count 8.6 Red Blood Count 3.51 L Hemoglobin 10.6 L Hematocrit 35.0 L Mean Corpuscular 99.7 Volume Mean Corpuscular 30.2 Hemoglobin Mean Corpuscular 30.3 L Hemoglobin Concent Red Cell 14.0 Distribution Width Platelet Count 256 Mean Platelet Volume 10.8 H Immature 0.300 Granulocytes % Neutrophils % 70.0 Lymphocytes % 17.0 Monocytes % 7.1 Eosinophils % 4.4 Basophils % 1.2 Nucleated Red Blood 0.0 Cells % Immature 0.030 Granulocytes # Neutrophils # 6.0 Lymphocytes # 1.5 Monocytes # 0.6 Eosinophils # 0.4 Basophils # 0.1 Nucleated Red Blood 0.0 Cells # Sodium Level 136 Potassium Level 5.2 H Chloride Level 96 L Carbon Dioxide Level 26 Anion Gap 14 H Blood Urea Nitrogen 75 H Creatinine 5.73 #H Est Glomerular 10 L Filtrat Rate mL/min Glucose Level 220 Lactic Acid Level 1.0 Calcium Level 8.4 Test 06/18/18 17:43 Bedside Glucose 297 H Medications Medication Current Medications Vancomycin HCl (Vanco Iv Per Pharmacy) VANCOMYCIN PER PHARMACY PER PROTOCOL XX ; Start 06/12/18 at 01:00 Morphine Sulfate (morphine) 2 mg Q4H PRN IV moderte PAIN LEVEL 5-7 Last administered on 06/17/18at 14:39; Admin Dose 2 MG; Start 06/12/18 at 01:00 Ondansetron HCl (Zofran Inj) 4 mg Q6H PRN IV NAUSEA AND/OR VOMITING Last administered on 06/16/18at 21:42; Admin Dose 4 MG; Start 06/12/18 at 01:00 Miscellaneous Information 1 ea NOTE XX ; Start 06/12/18 at 01:30 Glucose (Glutose) 15 gm Q15M PRN PO DECREASED GLUCOSE; Start 06/12/18 at 01:30 Glucose (Glutose) 22.5 gm Q15M PRN PO DECREASED GLUCOSE; Start 06/12/18 at 01:30 Dextrose (D50w Syringe) 25 ml Q15M PRN IV DECREASED GLUCOSE; Start 06/12/18 at 01:30 Dextrose (D50w Syringe) 50 ml Q15M PRN IV DECREASED GLUCOSE; Start 06/12/18 at 01:30 Glucagon (Glucagen) 1 mg Q15M PRN IM DECREASED GLUCOSE; Start 06/12/18 at 01:30 Glucose (Glutose) 15 gm Q15M PRN BUCCAL DECREASED GLUCOSE; Start 06/12/18 at 01:30 Aspirin (Halfprin) 81 mg DAILY PO Last administered on 06/18/18at 08:08; Admin Dose 81 MG; Start 06/13/18 at 09:00 Carvedilol (Coreg) 12.5 mg DAILY PO Last administered on 06/17/18at 08:23; Admin Dose 12.5 MG; Start 06/13/18 at 09:00; Status Hold Clopidogrel Bisulfate (plaVIX) 75 mg DAILY PO Last administered on 06/18/18 08:08; Admin Dose 75 MG; Start 06/13/18 at 09:00 Docusate Sodium (Colace) 250 mg BID PO Last administered on 06/18/18 08:08; Admin Dose 250 MG; Start 06/12/18 at 21:00 Fenofibrate (Tricor) 145 mg DAILY PO Last administered on 06/18/18 08:22; Admin Dose 145 MG; Start 06/13/18 at 09:00 Sevelamer Carbonate (Renvela) 1.6 gm WITH MEALS PO Last administered on 06/18/18 17:45; Admin Dose 1.6 GM; Start 06/12/18 at 18:00 Pantoprazole (Protonix Tab) 40 mg DAILY@0600 PO Last administered on 06/18/18 06:43; Admin Dose 40 MG; Start 06/13/18 at 06:00 Diagnostic Test (Pha) (Accu-Chek) 1 ea 02 XX ; Start 06/13/18 at 02:00 Insulin Aspart (Novolog Insulin Pen) NOVOLOG *MILD* ALGORITHM WITH MEALS BEDTIME SC Last administered on 06/18/18 17:50; Admin Dose 4 UNIT; Start 06/12/18 at 18:00 Silver Sulfadiazine (Thermazene 1% 25 Gm) 1 applic DAILY TOP Last administered on 06/18/18 08:11; Admin Dose 1 APPLIC; Start 06/12/18 at 14:00 Sodium Hypochlorite (Dakin'S (Dilute 1/40)) 1 applic DAILY IRR Last administered on 06/18/18 08:12; Admin Dose 1 APPLIC; Start 06/14/18 at 09:00 Collagenase (Santyl) 1 applic DAILY TOP Last administered on 06/18/18 08:12; Admin Dose 1 APPLIC; Start 06/14/18 at 09:00 Diphenhydramine HCl (Benadryl) 25 mg Q8H PRN PO ITCHING Last administered on 06/13/18 22:06; Admin Dose 25 MG; Start 06/13/18 at 21:30 Hydromorphone HCl (Dilaudid) 1 mg Q4H PRN IV SEVERE PAIN LEVEL 7-10 Last administered on 06/18/18 16:42; Admin Dose 1 MG; Start 06/14/18 at 04:30 Lorazepam (Ativan) 1 mg Q4H PRN IV ANXIETY Last administered on 06/14/18 23:29; Admin Dose 1 MG; Start 06/14/18 at 04:30 Albuterol/ Ipratropium (Duoneb) 3 ml Q8H RESP THERAPY HHN Last administered on 06/18/18 15:08; Admin Dose 3 ML; Start 06/15/18 at 14:00 Gabapentin (Neurontin) 200 mg TID PO Last administered on 06/18/18 13:15; Admin Dose 200 MG; Start 06/15/18 at 13:00 Aripiprazole (Abilify) 2 mg DAILY PO Last administered on 06/18/18 08:22; Admi n Dose 2 MG; Start 06/15/18 at 14:00 Insulin Aspart (Novolog Insulin Pen) 8 unit WITH MEALS SC Last administered on 06/18/18 17:49; Admin Dose 8 UNIT; Start 06/16/18 at 08:00 Insulin Glargine (Lantus) 25 units DAILY@2000 SC Last administered on 06/17/18 21:01; Admin Dose 25 UNITS; Start 06/15/18 at 20:00 Benazepril HCl (Lotensin) 10 mg DAILY PO Last administered on 06/17/18 08:24; Admin Dose 10 MG; Start 06/17/18 at 09:00; Status Hold Furosemide (Lasix) 80 mg BID DIURETICS PO Last administered on 06/18/18 17:46; Admin Dose 80 MG; Start 06/16/18 at 18:00 Atorvastatin Calcium (Lipitor) 80 mg HS PO Last administered on 06/17/18 21:00; Admin Dose 80 MG; Start 06/16/18 at 21:00 Miscellaneous Information (*Rx Drug Level Order Reminder*) VANCO RANDOM W/ AM LABS... 0500 ONCE XX ; Start 06/19/18 at 05:00; Stop 06/19/18 at 05:01 TABITHA COVINGTON MD Jun 18, 2018 19:04
--- NOTE | 2018-06-18 19:07 | CONS ---
Assessment/Plan Assessment/Plan Hospital Course (Demo Recall) 1. End-stage renal disease on maintenance hemodialysis. He is usually dialyzed Tuesday and is due for dialysis in 2 days. Discharge planning is in progress. If patient is discharged he can resume outpatient dialysis starting in 2 days. He is normally dialyzed at the [facility] dialysis unit in the [place]. 2. Cellulitis/ulceration of left foot. 3. Type 2 diabetes mellitus 4 history of congestive heart failure 5 peripheral artery disease Consultation Date/Type/Reason Admit Date/Time Jun 12, 2018 at 12:13 Initial Consult Date 06/16/18 Requesting Provider: LAURA AHN MD Date/Time of Note DATE: 06/17/18 TIME: 16:25 24 HR Interval Summary Free Text/Dictation This patient is being seen in nephrologic follow-up. He is awake and alert. He has no new complaints. Constitutional: no complaints, improved Exam/Review of Systems Exam Vitals Vital Signs Date Temp Pulse Resp B/P (MAP) Pulse Ox O2 O2 Flow FiO2 Time Delivery Rate 06/17/18 2.0 16:00 06/17/18 75 20 99 Nasal 16:00 Cannula 06/17/18 97.7 94/51 (65) 13:48 06/16/18 21 09:05 Intake and Output 06/16/18 06/16/18 06/17/18 1515:00 23:00 07:00 IntakeIntake Total 480 ml 330 ml OutputOutput Total 2600 ml BalanceBalance -2600 ml 480 ml 330 ml Exam The left foot has a bandage over an area that has a cellulitis and ulceration. The right foot has multiple toes amputated. Constitutional: alert, oriented, frail, obese Respiratory: clear to auscultation, normal air movement Cardiovascular: regular rate and rhythm Gastrointestinal: soft, non-tender, distended Results Result Diagram: 06/17/18 0530 06/17/18 0530 Results 24hrs Laboratory Tests Test 06/16/18 17:35 06/16/18 20:58 06/17/18 05:30 06/17/18 07:48 Bedside Glucose 119 131 298 H White Blood Count 8.5 Red Blood Count 3.46 L Hemoglobin 10.5 L Hematocrit 34.6 L Mean Corpuscular 100.0 Volume Mean Corpuscular 30.3 Hemoglobin Mean Corpuscular 30.3 L Hemoglobin Concent Red Cell 14.0 Distribution Width Platelet Count 247 Mean Platelet Volume 10.7 H Immature 0.500 H Granulocytes % Neutrophils % 71.3 Lymphocytes % 16.6 Monocytes % 7.3 Eosinophils % 3.5 Basophils % 0.8 Nucleated Red Blood 0.0 Cells % Immature 0.040 H Granulocytes # Neutrophils # 6.1 Lymphocytes # 1.4 Monocytes # 0.6 Eosinophils # 0.3 Basophils # 0.1 Nucleated Red Blood 0.0 Cells # Sodium Level 138 Potassium Level 5.0 Chloride Level 100 Carbon Dioxide Level 29 Anion Gap 9 Blood Urea Nitrogen 50 H Creatinine 3.54 H Est Glomerular 18 L Filtrat Rate mL/min Glucose Level 291 H Calcium Level 8.6 Test 06/17/18 12:36 Bedside Glucose 281 H Medications Medication Current Medications Vancomycin HCl (Vanco Iv Per Pharmacy) VANCOMYCIN PER PHARMACY PER PROTOCOL XX ; Start 06/12/18 at 01:00 Morphine Sulfate (morphine) 2 mg Q4H PRN IV moderte PAIN LEVEL 5-7 Last administered on 06/17/18at 14:39; Admin Dose 2 MG; Start 06/12/18 at 01:00 Morphine Sulfate (morphine) 4 mg Q4H PRN IV SEVERE PAIN LEVEL 7-10 Last adminis tered on 06/14/18at 10:55; Admin Dose 4 MG; Start 06/12/18 at 01:00 Ondansetron HCl (Zofran Inj) 4 mg Q6H PRN IV NAUSEA AND/OR VOMITING Last administered on 06/16/18at 21:42; Admin Dose 4 MG; Start 06/12/18 at 01:00 Miscellaneous Information 1 ea NOTE XX ; Start 06/12/18 at 01:30 Glucose (Glutose) 15 gm Q15M PRN PO DECREASED GLUCOSE; Start 06/12/18 at 01:30 Glucose (Glutose) 22.5 gm Q15M PRN PO DECREASED GLUCOSE; Start 06/12/18 at 01:30 Dextrose (D50w Syringe) 25 ml Q15M PRN IV DECREASED GLUCOSE; Start 06/12/18 at 01:30 Dextrose (D50w Syringe) 50 ml Q15M PRN IV DECREASED GLUCOSE; Start 06/12/18 at 01:30 Glucagon (Glucagen) 1 mg Q15M PRN IM DECREASED GLUCOSE; Start 06/12/18 at 01:30 Glucose (Glutose) 15 gm Q15M PRN BUCCAL DECREASED GLUCOSE; Start 06/12/18 at 01:30 Aspirin (Halfprin) 81 mg DAILY PO Last administered on 06/17/18 08:23; Admin Dose 81 MG; Start 06/13/18 at 09:00 Carvedilol (Coreg) 12.5 mg DAILY PO Last administered on 06/17/18 08:23; Admin Dose 12.5 MG; Start 06/13/18 at 09:00 Clopidogrel Bisulfate (plaVIX) 75 mg DAILY PO Last administered on 06/17/18 08:22; Admin Dose 75 MG; Start 06/13/18 at 09:00 Docusate Sodium (Colace) 250 mg BID PO Last administered on 06/17/18 08:23; Admin Dose 250 MG; Start 06/12/18 at 21:00 Fenofibrate (Tricor) 145 mg DAILY PO Last administered on 06/17/18 08:23; Admin Dose 145 MG; Start 06/13/18 at 09:00 Sevelamer Carbonate (Renvela) 1.6 gm WITH MEALS PO Last administered on 06/17/18 08:24; Admin Dose 1.6 GM; Start 06/12/18 at 18:00 Pantoprazole (Protonix Tab) 40 mg DAILY@0600 PO Last administered on 06/17/18 05:47; Admin Dose 40 MG; Start 06/13/18 at 06:00 Diagnostic Test (Pha) (Accu-Chek) 1 ea 02 XX ; Start 06/13/18 at 02:00 Insulin Aspart (Novolog Insulin Pen) NOVOLOG *MILD* ALGORITHM WITH MEALS BEDTIME SC Last administered on 06/17/18 12:45; Admin Dose 4 UNIT; Start 06/12/18 at 18:00 Silver Sulfadiazine (Thermazene 1% 25 Gm) 1 applic DAILY TOP Last administered on 06/17/18 08:24; Admin Dose 1 APPLIC; Start 06/12/18 at 14:00 Sodium Hypochlorite (Dakin'S (Dilute 1/40)) 1 applic DAILY IRR Last admin istered on 06/17/18 08:24; Admin Dose 1 APPLIC; Start 06/14/18 at 09:00 Collagenase (Santyl) 1 applic DAILY TOP Last administered on 06/17/18 08:24; Admin Dose 1 APPLIC; Start 06/14/18 at 09:00 Diphenhydramine HCl (Benadryl) 25 mg Q8H PRN PO ITCHING Last administered on 06/13/18 22:06; Admin Dose 25 MG; Start 06/13/18 at 21:30 Hydromorphone HCl (Dilaudid) 1 mg Q4H PRN IV SEVERE PAIN LEVEL 7-10 Last administered on 06/17/18 09:32; Admin Dose 1 MG; Start 06/14/18 at 04:30 Lorazepam (Ativan) 1 mg Q4H PRN IV ANXIETY Last administered on 06/14/18 23:29; Admin Dose 1 MG; Start 06/14/18 at 04:30 Ferric Sodium Gluconate Complex 125 mg/Sodium Chloride 110 ml @ 110 mls/hr DAILY@1300 IVPB Last administered on 06/17/18 12:40; Admin Dose 110 MLS/HR; Start 06/14/18 at 13:00; Stop 06/18/18 at 13:59 Albuterol/ Ipratropium (Duoneb) 3 ml Q8H RESP THERAPY HHN Last administered on 06/17/18 15:59; Admin Dose 3 ML; Start 06/15/18 at 14:00 Gabapentin (Neurontin) 200 mg TID PO Last administered on 06/17/18 13:03; Admin Dose 200 MG; Start 06/15/18 at 13:00 Aripiprazole (Abilify) 2 mg DAILY PO Last administered on 06/17/18 08:22; Admin Dose 2 MG; Start 06/15/18 at 14:00 Insulin Aspart (Novolog Insulin Pen) 8 unit WITH MEALS SC Last administered on 06/17/18 12:46; Admin Dose 8 UNIT; Start 06/16/18 at 08:00 Insulin Glargine (Lantus) 25 units DAILY@2000 SC Last administered on 06/16/18 21:04; Admin Dose 25 UNITS; Start 06/15/18 at 20:00 Benazepril HCl (Lotensin) 10 mg DAILY PO Last administered on 06/17/18 08:24; Admin Dose 10 MG; Start 06/17/18 at 09:00 Furosemide (Lasix) 80 mg BID DIURETICS PO Last administered on 06/17/18at 06:44; Admin Dose 80 MG; Start 06/16/18 at 18:00 Atorvastatin Calcium (Lipitor) 80 mg HS PO Last administered on 06/16/18at 21:00; Admin Dose 80 MG; Start 06/16/18 at 21:00 TABITHA COVINGTON MD Jun 17, 2018 20:31
[2018-06-18 19:17] VITALS: BP 104/54; PULSE 89; RESP 18
[2018-06-18] MEDS: ATORVASTATIN 80 MG TAB PO SCH (20:37)
[2018-06-18] MEDS: INSULIN GLARGINE [LANTus] (100 UNITS/ML) SYG SC SCH (20:45)
[2018-06-19] VITALS (20 sets, daily range): BP systolic 91–122; BP diastolic 42–74; PULSE 73–86; RESP 18–22
[2018-06-19] MEDS: ALBUTEROL/IPRATROPIUM (NEB) 3 ML AMP HHN SCH ×3 (00:27→15:49)
[2018-06-19] MEDS: HYDROmorphONE 1 MG/ML SYG IV PRN ×5 (00:41→18:22)
[2018-06-19] MEDS: ACCU-CHEK XX SCH (02:00)
[2018-06-19] MEDS: PANTOPRAZOLE (EC) 40 MG TAB PO SCH (05:19)
[2018-06-19] MEDS: FUROSEMIDE 40 MG TAB PO SCH ×2 (06:41→18:10)
[2018-06-19] MEDS: FENOFIBRATE 145 MG TAB PO SCH (08:23)
[2018-06-19] MEDS: GABAPENTIN 100 MG CAP PO SCH ×3 (08:23→20:16)
[2018-06-19] MEDS: CLOPIDOGREL 75 MG TAB PO SCH (08:23)
[2018-06-19] MEDS: ASPIRIN (EC) 81 MG TAB PO SCH (08:23)
[2018-06-19] MEDS: ARIPIPRAZOLE 2 MG TAB PO SCH (08:23)
[2018-06-19] MEDS: DOCUSATE SODIUM 250 MG CAP PO SCH ×2 (08:23→20:16)
[2018-06-19] MEDS: SEVELAMER CARBONATE 0.8 GM PKT PO SCH ×3 (08:24→18:10)
[2018-06-19] MEDS: SODIUM HYPOCHLORITE (1/40) 1 LITER BTL IRR SCH (08:24)
[2018-06-19] MEDS: COLLAGENASE 5 GM (UD JAR) TOP SCH (08:25)
[2018-06-19] MEDS: SILVER SULFADIAZINE 1% 25 GM CR TOP SCH ×2 (08:25→08:47)
[2018-06-19] MEDS: INSULIN ASPART [NOVOLOG] 3 ML PEN SC SCH ×7 (08:30→20:16)
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
--- NOTE | 2018-06-19 13:51 | CONS ---
Assessment/Plan Assessment/Plan Assessment/Plan (Daily) Left foot diabetic ulcer Right medial calf diabetic ulcer Cellulitis PAD Hx of right foot TMA DM2 with peripheral neuropathy ESRD on HD CHF Plan Continue with local wound care and daily dressing changes with esthelayl. Reviewed X-rays and non invasive arterial studies. Appreciate vascular surgery input. No plan for OR surgical procedures. Recommend offloading of heels. Wound Cultures showing staph coag (-) and corynebacterium. Continue with IV abx per recommendations. Tight glycemic control. Patient will need home health nurse for daily dressing changes. Recommend to follow up in outpatient wound clinic [facility]. Consultation Date/Type/Reason Admit Date/Time Jun 12, 2018 at 12:13 Initial Consult Date 06/16/18 Requesting Provider: LAURA AHN MD Date/Time of Note DATE: 06/19/18 TIME: 13:51 24 HR Interval Summary Free Text/Dictation No acute events overnight, patient in dialysis session and tolerating. Exam/Review of Systems Exam Vitals Vital Signs Date Temp Pulse Resp B/P (MAP) Pulse Ox O2 O2 Flow FiO2 Time Delivery Rate 06/19/18 75 13:05 06/19/18 18 102/50 97 Nasal 2.0 10:50 (67) Cannula 06/19/18 98.7 07:57 06/16/18 21 09:05 Intake and Output 06/18/18 06/18/18 06/19/18 1515:00 23:00 07:00 IntakeIntake Total 710 ml 480 ml BalanceBalance 710 ml 480 ml Exam DP/PT pulses weakly palpable Skin temperature gradient warm to warm from proximal leg to distal feet absent protective sensations Right foot TMA site appreciated Right medial calf with fibrogranular wound base measuring 0.6 x 2.0 x 0.2cm, no probing to bone, no purulence, no proximal streaking. Left dorsal foot with fibrogranular wound measuring 4 x 4 x 0.2cm, no probing to bone, no purulent drainage. Erythema to the anterior leg resolving Muscle strength 5/5 in all compartments of the foot. Non invasive arterial studies Right lower extremity: 1. Occluded right common femoral artery. 2. Minimal flow in the right deep femoral artery. 3. Monophasic waveforms in the right proximal and mid superficial femoral artery, and in the right posterior tibial and dorsalis pedis arteries. This is suggestive of inflow disease due to upstream stenoses. Left lower extremity: 1. Minimal flow in the left deep femoral artery. 2. Occluded left superficial femoral artery. 3. Monophasic waveforms in the left posterior tibial artery, suggestive of inflow disease due to upstream stenosis. 4. The left dorsalis pedis artery was obscured by a surgical bandage. Foot x-ray IMPRESSION: No evidence of osteomyelitis or soft tissue gas. Mild soft tissue swelling along the forefoot. Results Result Diagram: 06/18/1846 06/18/1846 Results 24hrs Laboratory Tests Test 06/18/18 17:43 06/18/18 20:39 06/19/18 05:13 06/19/18 08:20 Bedside Glucose 297 H 276 H 344 H Random Vancomycin 14.1 Level Test 06/19/18 12:58 Bedside Glucose 136 Medications Medication Current Medications Vancomycin HCl (Vanco Iv Per Pharmacy) VANCOMYCIN PER PHARMACY PER PROTOCOL XX ; Start 06/12/18 at 01:00 Morphine Sulfate (morphine) 2 mg Q4H PRN IV moderte PAIN LEVEL 5-7 Last administered on 06/17/18at 14:39; Admin Dose 2 MG; Start 06/12/18 at 01:00 Ondansetron HCl (Zofran Inj) 4 mg Q6H PRN IV NAUSEA AND/OR VOMITING Last administered on 06/16/18at 21:42; Admin Dose 4 MG; Start 06/12/18 at 01:00 Miscellaneous Information 1 ea NOTE XX ; Start 06/12/18 at 01:30 Glucose (Glutose) 15 gm Q15M PRN PO DECREASED GLUCOSE; Start 06/12/18 at 01:30 Glucose (Glutose) 22.5 gm Q15M PRN PO DECREASED GLUCOSE; Start 06/12/18 at 01:30 Dextrose (D50w Syringe) 25 ml Q15M PRN IV DECREASED GLUCOSE; Start 06/12/18 at 01:30 Dextrose (D50w Syringe) 50 ml Q15M PRN IV DECREASED GLUCOSE; Start 06/12/18 at 01:30 Glucagon (Glucagen) 1 mg Q15M PRN IM DECREASED GLUCOSE; Start 06/12/18 at 01:30 Glucose (Glutose) 15 gm Q15M PRN BUCCAL DECREASED GLUCOSE; Start 06/12/18 at 01:30 Aspirin (Halfprin) 81 mg DAILY PO Last administered on 06/19/18 08:23; Admin Dose 81 MG; Start 06/13/18 at 09:00 Carvedilol (Coreg) 12.5 mg DAILY PO Last administered on 06/17/18 08:23; Admin Dose 12.5 MG; Start 06/13/18 at 09:00; Status Hold Clopidogrel Bisulfate (plaVIX) 75 mg DAILY PO Last administered on 06/19/18 08:23; Admin Dose 75 MG; Start 06/13/18 at 09:00 Docusate Sodium (Colace) 250 mg BID PO Last administered on 06/19/18 08:23; Admin Dose 250 MG; Start 06/12/18 at 21:00 Fenofibrate (Tricor) 145 mg DAILY PO Last administered on 06/19/18 08:23; Admin Dose 145 MG; Start 06/13/18 at 09:00 Sevelamer Carbonate (Renvela) 1.6 gm WITH MEALS PO Last administered on 06/19/18 13:28; Admin Dose 1.6 GM; Start 06/12/18 at 18:00 Pantoprazole (Protonix Tab) 40 mg DAILY@0600 PO Last administered on 06/19/18 05:19; Admin Dose 40 MG; Start 06/13/18 at 06:00 Diagnostic Test (Pha) (Accu-Chek) 1 ea 02 XX ; Start 06/13/18 at 02:00 Insulin Aspart (Novolog Insulin Pen) NOVOLOG *MILD* ALGORITHM WITH MEALS BEDTIME SC Last administered on 06/19/18 08:30; Admin Dose 5 UNIT; Start 06/12/18 at 18:00 Silver Sulfadiazine (Thermazene 1% 25 Gm) 1 applic DAILY TOP Last administered on 06/18/18 08:11; Admin Dose 1 APPLIC; Start 06/12/18 at 14:00 Sodium Hypochlorite (Dakin'S (Dilute 40)) 1 applic DAILY IRR Last administered on 06/19/18 08:24; Admin Dose 1 APPLIC; Start 06/14/18 at 09:00 Collagenase (Santyl) 1 applic DAILY TOP Last administered on 06/19/18 08:25; Admin Dose 1 APPLIC; Start 06/14/18 at 09:00 Diphenhydramine HCl (Benadryl) 25 mg Q8H PRN PO ITCHING Last administered on 06/13/18 22:06; Admin Dose 25 MG; Start 06/13/18 at 21:30 Hydromorphone HCl (Dilaudid) 1 mg Q4H PRN IV SEVERE PAIN LEVEL 7-10 Last administered on 06/19/18 09:22; Admin Dose 1 MG; Start 06/14/18 at 04:30 Lorazepam (Ativan) 1 mg Q4H PRN IV ANXIETY Last administered on 06/14/18 23:29; Admin Dose 1 MG; Start 06/14/18 at 04:30 Albuterol/ Ipratropium (Duoneb) 3 ml Q8H RESP THERAPY HHN Last administered on 06/19/18 08:05; Admin Dose 3 ML; Start 06/15/18 at 14:00 Gabapentin (Neurontin) 200 mg TID PO Last administered on 06/19/18 13:33; Admin Dose 200 MG; Start 06/15/18 at 13:00 Aripiprazole (Abilify) 2 mg DAILY PO Last administered on 06/19/18 08:23; Admin Dose 2 MG; Start 06/15/18 at 14:00 Insulin Aspart (Novolog Insulin Pen) 8 unit WITH MEALS SC Last administered on 06/19/18 13:30; Admin Dose 8 UNIT; Start 06/16/18 at 08:00 Insulin Glargine (Lantus) 25 units DAILY@2000 SC Last administered on 06/18/18 20:45; Admin Dose 25 UNITS; Start 06/15/18 at 20:00 Benazepril HCl (Lotensin) 10 mg DAILY PO Last administered on 06/17/18 08:24; Admin Dose 10 MG; Start 06/17/18 at 09:00; Status Hold Furosemide (Lasix) 80 mg BID DIURETICS PO Last administered on 06/19/18 06:41; Admin Dose 80 MG; Start 06/16/18 at 18:00 Atorvastatin Calcium (Lipitor) 80 mg HS PO Last administered on 06/18/18 20:37; Admin Dose 80 MG; Start 06/16/18 at 21:00 Vancomycin HCl 250 ml @ 125 mls/hr Q96H IVPB ; Start 06/19/18 at 18:00 NELL ROSENBAUM DPDestiny Jun 19, 2018 13:51
--- NOTE | 2018-06-19 13:52 | CONS ---
Assessment/Plan Assessment/Plan Hospital Course (Demo Recall) In hemodialysis, looks comfortable, no fevers Blood cultures negative, wound cx + Staph Antimicrobials: Vancomycin Physical examination: Well-developed obese elderly man who is in no distress. Head atraumatic normocephalic. Neck is supple chest rise symmetrical breath sounds diminished bases. Heart: S1-S2. Abdomen soft bowel sounds present. Extremities without cyanosis Assessment: 1. Left lower extremity cellulitis/ulceration s/p debridement at bedside 2. End-stage renal disease, hemodialysis dependent/L AVF 3. Diabetes 4. Morbid obesity 5. Coronary artery disease, history of AICD 6. Peripheral arterial disease status post bypass surgeries status post right foot partial amputation Plan: Patient remains stable, pending discharge on IV Vanco to complete 2 weeks, wound care per podiatry rec-s Consultation Date/Type/Reason Admit Date/Time Jun 12, 2018 at 12:13 Initial Consult Date Type of Consult id Requesting Provider: LAURA AHN MD Date/Time of Note DATE: 06/19/18 TIME: 13:51 Exam/Review of Systems Exam Vitals Vital Signs Date Temp Pulse Resp B/P (MAP) Pulse Ox O2 O2 Flow FiO2 Time Delivery Rate 06/19/18 75 13:05 06/19/18 18 102/50 97 Nasal 2.0 10:50 (67) Cannula 06/19/18 98.7 07:57 06/16/18 21 09:05 Intake and Output 06/18/18 06/18/18 06/19/18 1414:59 22:59 06:59 IntakeIntake Total 710 ml 480 ml BalanceBalance 710 ml 480 ml Results Result Diagram: 06/18/18 0546 06/18/18 0546 Results 24hrs Laboratory Tests Test 06/18/18 17:43 06/18/18 20:39 06/19/18 05:13 06/19/18 08:20 Bedside Glucose 297 H 276 H 344 H Random Vancomycin 14.1 Level Test 06/19/18 12:58 Bedside Glucose 136 Medications Medication Current Medications Vancomycin HCl (Vanco Iv Per Pharmacy) VANCOMYCIN PER PHARMACY PER PROTOCOL XX ; Start 06/12/18 at 01:00 Morphine Sulfate (morphine) 2 mg Q4H PRN IV moderte PAIN LEVEL 5-7 Last administered on 06/17/18at 14:39; Admin Dose 2 MG; Start 06/12/18 at 01:00 Ondansetron HCl (Zofran Inj) 4 mg Q6H PRN IV NAUSEA AND/OR VOMITING Last administered on 06/16/18at 21:42; Admin Dose 4 MG; Start 06/12/18 at 01:00 Miscellaneous Information 1 ea NOTE XX ; Start 06/12/18 at 01:30 Glucose (Glutose) 15 gm Q15M PRN PO DECREASED GLUCOSE; Start 06/12/18 at 01:30 Glucose (Glutose) 22.5 gm Q15M PRN PO DECREASED GLUCOSE; Start 06/12/18 at 01:30 Dextrose (D50w Syringe) 25 ml Q15M PRN IV DECREASED GLUCOSE; Start 06/12/18 at 01:30 Dextrose (D50w Syringe) 50 ml Q15M PRN IV DECREASED GLUCOSE; Start 06/12/18 at 01:30 Glucagon (Glucagen) 1 mg Q15M PRN IM DECREASED GLUCOSE; Start 06/12/18 at 01:30 Glucose (Glutose) 15 gm Q15M PRN BUCCAL DECREASED GLUCOSE; Start 06/12/18 at 01:30 Aspirin (Halfprin) 81 mg DAILY PO Last administered on 06/19/18 08:23; Admin Dose 81 MG; Start 06/13/18 at 09:00 Carvedilol (Coreg) 12.5 mg DAILY PO Last administered on 06/17/18 08:23; Admin Dose 12.5 MG; Start 06/13/18 at 09:00; Status Hold Clopidogrel Bisulfate (plaVIX) 75 mg DAILY PO Last administered on 06/19/18 08:23; Admin Dose 75 MG; Start 06/13/18 at 09:00 Docusate Sodium (Colace) 250 mg BID PO Last administered on 06/19/18 08:23; Admin Dose 250 MG; Start 06/12/18 at 21:00 Fenofibrate (Tricor) 145 mg DAILY PO Last administered on 06/19/18 08:23; Admin Dose 145 MG; Start 06/13/18 at 09:00 Sevelamer Carbonate (Renvela) 1.6 gm WITH MEALS PO Last administered on 06/19/18 13:28; Admin Dose 1.6 GM; Start 06/12/18 at 18:00 Pantoprazole (Protonix Tab) 40 mg DAILY@0600 PO Last administered on 06/19/18 05:19; Admin Dose 40 MG; Start 06/13/18 at 06:00 Diagnostic Test (Pha) (Accu-Chek) 1 ea 02 XX ; Start 06/13/18 at 02:00 Insulin Aspart (Novolog Insulin Pen) NOVOLOG *MILD* ALGORITHM WITH MEALS BEDTIME SC Last administered on 06/19/18 08:30; Admin Dose 5 UNIT; Start 06/12/18 at 18:00 Silver Sulfadiazine (Thermazene 1% 25 Gm) 1 applic DAILY TOP Last administered on 06/18/18 08:11; Admin Dose 1 APPLIC; Start 06/12/18 at 14:00 Sodium Hypochlorite (Dakin'S (Dilute )) 1 applic DAILY IRR Last administered on 06/19/18 08:24; Admin Dose 1 APPLIC; Start 06/14/18 at 09:00 Collagenase (Santyl) 1 applic DAILY TOP Last administered on 06/19/18 08:25; Admin Dose 1 APPLIC; Start 06/14/18 at 09:00 Diphenhydramine HCl (Benadryl) 25 mg Q8H PRN PO ITCHING Last administered on 06/13/18 22:06; Admin Dose 25 MG; Start 06/13/18 at 21:30 Hydromorphone HCl (Dilaudid) 1 mg Q4H PRN IV SEVERE PAIN LEVEL 7-10 Last administered on 06/19/18 09:22; Admin Dose 1 MG; Start 06/14/18 at 04:30 Lorazepam (Ativan) 1 mg Q4H PRN IV ANXIETY Last administered on 06/14/18 23:29; Admin Dose 1 MG; Start 06/14/18 at 04:30 Albuterol/ Ipratropium (Duoneb) 3 ml Q8H RESP THERAPY HHN Last administered on 06/19/18 08:05; Admin Dose 3 ML; Start 06/15/18 at 14:00 Gabapentin (Neurontin) 200 mg TID PO Last administered on 06/19/18 13:33; Admin Dose 200 MG; Start 06/15/18 at 13:00 Aripiprazole (Abilify) 2 mg DAILY PO Last administered on 06/19/18 08:23; Admin Dose 2 MG; Start 06/15/18 at 14:00 Insulin Aspart (Novolog Insulin Pen) 8 unit WITH MEALS SC Last administered on 06/19/18at 13:30; Admin Dose 8 UNIT; Start 06/16/18 at 08:00 Insulin Glargine (Lantus) 25 units DAILY@2000 SC Last administered on 06/18/18at 20:45; Admin Dose 25 UNITS; Start 06/15/18 at 20:00 Benazepril HCl (Lotensin) 10 mg DAILY PO Last administered on 06/17/18at 08:24; Admin Dose 10 MG; Start 06/17/18 at 09:00; Status Hold Furosemide (Lasix) 80 mg BID DIURETICS PO Last administered on 06/19/18at 06:41; Admin Dose 80 MG; Start 06/16/18 at 18:00 Atorvastatin Calcium (Lipitor) 80 mg HS PO Last administered on 06/18/18at 20:37; Admin Dose 80 MG; Start 06/16/18 at 21:00 Vancomycin HCl 250 ml @ 125 mls/hr Q96H IVPB ; Start 06/19/18 at 18:00 AMMON LOZOYA NP Jun 19, 2018 13:52
[2018-06-19] MEDS ORDERED: VANCOMYCIN 1 GM 250 ML IVPB SCH (18:00)
[2018-06-19] MEDS: INSULIN GLARGINE [LANTus] (100 UNITS/ML) SYG SC SCH (20:15)
[2018-06-19] MEDS: ATORVASTATIN 80 MG TAB PO SCH (20:16)
--- NOTE | 2018-06-20 01:58 | PN ---
DATE: 06/16/2018 SUBJECTIVE COMPLAINT: The patient being monitored for left foot diabetic foot ulceration, cellulitis , has history of transmetatarsal amputation on the right foot. The patient denies any fever, nausea, vomiting. He has had wound cultures with coag negative Staphylococcus and Corynebacterium species. PHYSICAL EXAMINATION: VITAL SIGNS: Temperature is 97.7, pulse is 90, respiratory rate is 18, blood pressure is 127/60, pul se ox is 98. GENERAL: The patient is alert, oriented, in no acute distress. RESPIRATORY: Regular respiration. EXTREMITIES: Right foot transmetatarsal amputation. Left foot ulceration, dorsal aspect without cyril lulitis. No malodor. A 1+ pitting edema, bilateral lower extremity. Absent protective sensation. The patient has left arm AV fistula. LYMPHATICS: No tender popliteal lymph nodes. No lymphangitis. LABORATORY DATA: WBC 8.6, hemoglobin 11.6, hematocrit 38.5, platelets 248. DIAGNOSTIC DATA: Abdominal angiogram reveals 2 left lower extremity femoral popliteal grafts which a re occluded, severe focal stenosis of right common femoral artery, right lower extremity femoral popl iteal graft patent, single runoff in the right calf, extensive atherosclerotic calcification plaque. ASSESSMENT: 1. Left foot diabetic foot ulceration. 2. Cellulitis, resolving. 3. Peripheral arterial disease. 4. History of right foot transmetatarsal amputation. 5. Diabetes with peripheral neuropathy. 6. End-stage renal disease on hemodialysis via left arm arteriovenous fistula. 7. Congestive heart failure. PLAN: I reviewed culture results. Nursing recommendations were given. Continue daily cleansing and topical antiseptic precautions. He would benefit from outpatient followup. Currently, the patient is not planning to have any vascular surgery. Skin care and wound care were performed. The patient' s education was provided. I recommend tight glycemic control. Dictated By: EDDY SARMIENTO DPM RB/NTS Conf#: [id number] DID#: [id number] CC: CELESTINA BORGES MD; DANISH MCDERMOTT MD;*EndCC*
== END 2018-06-19 20:50 | disposition home health service (06) | DRG 622 ==
LOC: E/R 18:52 → 2NE 23:38 → OBSVTOIN 06-12 12:13 → 2NE 06-13 15:50
PROVIDERS: ADMIT Internal Medicine; ATTEND Internal Medicine
PROC: 5A1D70Z Performance of Urinary Filtration, Intermittent, Less than 6 Hours Per Day (ICD-10-PCS; 2018-06-12)
PROC: 0JBR0ZZ Excision of Left Foot Subcutaneous Tissue and Fascia, Open Approach (ICD-10-PCS; principal; 2018-06-13)
DX: E11.621 Type 2 diabetes mellitus with foot ulcer (principal); I50.43 Acute on chronic combined systolic (congestive) and diastolic (congestive) heart failure; L03.116 Cellulitis of left lower limb; I13.2 Hypertensive heart and chronic kidney disease with heart failure and with stage 5 chronic kidney disease, or end stage renal disease; N18.6 End stage renal disease; E11.65 Type 2 diabetes mellitus with hyperglycemia; T25.222A Burn of second degree of left foot, initial encounter; Z99.2 Dependence on renal dialysis; E11.22 Type 2 diabetes mellitus with diabetic chronic kidney disease; E11.42 Type 2 diabetes mellitus with diabetic polyneuropathy; Z95.810 Presence of automatic (implantable) cardiac defibrillator; Z68.38 Body mass index [BMI] 38.0-38.9, adult; E11.51 Type 2 diabetes mellitus with diabetic peripheral angiopathy without gangrene; X12.XXXA Contact with other hot fluids, initial encounter; Y92.009 Unspecified place in unspecified non-institutional (private) residence as the place of occurrence of the external cause; E11.21 Type 2 diabetes mellitus with diabetic nephropathy; I25.10 Atherosclerotic heart disease of native coronary artery without angina pectoris; Z98.61 Coronary angioplasty status; R41.3 Other amnesia; E66.01 Morbid (severe) obesity due to excess calories; D63.8 Anemia in other chronic diseases classified elsewhere; K59.00 Constipation, unspecified; Z87.891 Personal history of nicotine dependence; I25.5 Ischemic cardiomyopathy; Z89.431 Acquired absence of right foot; E11.39 Type 2 diabetes mellitus with other diabetic ophthalmic complication; G40.909 Epilepsy, unspecified, not intractable, without status epilepticus; F41.9 Anxiety disorder, unspecified; Z91.19 Patient's noncompliance with other medical treatment and regimen; F31.9 Bipolar disorder, unspecified
CPT/HCPCS: 36415; 70551; 71045; 75635; 80048; 80053; 80061; 80202; 82728; 82962; 83036; 83540; 83605; 83735; 84100; 85025; 85610; 85651; 85730; 86140; 87040; 87070; 90935; 93922; 94640; 94664; 96374; 96375; 97110; 97163; 97530; G0378; J1170; J1815; J2060; J2270; J2405; J2543; J2916; J3370; J7040; J7050; Q9967

== ENCOUNTER 2018-07-04 18:13 | Inpatient (IN) | payer MEDICARE, OTHER ==
[~2018-07-04] VITALS: Ht 152.4 cm; Wt 97.3 kg
[~2018-07-04 18:13] MED LIST changes: +AMIT50TA3 PO; +ATRO INHALATION; +BENA10TA4 PO; +BUDE6.9H INHALATION; +DULO60CA59 PO; +ECON15CR TP; +EZET10TA31 PO; +FLUO120C4 TOP; +ICOS1CAP PO; +LACT10SO5 PO; +METO10TA6 PO; +ONDA8TAB83 PO; +PROM118S PO
[2018-07-04] MEDS ORDERED: morphine 4 MG/ML VIAL IV STA ×2 (18:41→20:37)
--- NOTE | 2018-07-04 18:59 | ERD ---
ER Documentation Chief Complaint Chief Complaint chest pain since this afternoon with no signs of diaphoresis, no sob HPI 63-year-old male CAD, ESRD presenting with complaints of chest pain that started this afternoon while at rest. He had some nausea with vomiting but no diaphoresis. He only complains of mild shortness of breath. The pain is pressure-like, constant, not relieved with nitroglycerin in route. He was given aspirin prior to arrival by EMS. Currently his pain is pressure-like, 8 out of 10, in the center of his chest, radiating to the left shoulder. He denies any numbness or tingling in the extremities. No associated headache, fever, chills, cough, hemoptysis. ROS All systems reviewed and are negative except as per history of present illness. Medications Home Meds Reported Medications Econazole Nitrate (Econazole Nitrate) 15 Gm Cream..g., 15 GM TP 06/12/18 Ezetimibe* (Zetia*) 10 Mg Tablet, 10 MG PO, TAB 06/12/18 Ondansetron Hcl* (Ondansetron Hcl*) 8 Mg Tablet, 8 MG PO, TAB 06/12/18 Fluocinonide* (Fluocinonide* Cream) 0.1% - 120 Gm Cream..g., 1 APPLIC TOP, TUB 06/12/18 Fluocinonide* (Fluocinonide* Cream) 0.1% - 120 Gm Cream..g., 1 APPLIC TOP, TUB 06/12/18 Ipratropium [place]* (Atrovent HFA*) 12.9 Gm Aer.w.adap, 2 PUFF INHALATION for SHORTNESS OF BREATH, #1 INHALER 06/12/18 Metolazone* (Metolazone*) 10 Mg Tablet, 10 MG PO, TAB 06/12/18 Promethazine/Phenyleph/Codeine (Dvksunyqdder-IX-Yjhiqpg Syrup) 118 Ml Syrup, 118 ML PO 06/12/18 Amitriptyline Hcl* (Amitriptyline Hcl*) 50 Mg Tablet, 50 MG PO, #30 TAB 06/12/18 Duloxetine Hcl* (Duloxetine Hcl*) 60 Mg Capsule.dr, 60 MG PO, #30 CAP 06/12/18 Icosapent Ethyl (VASCEPA) 1 Gm Capsule, 1 GM PO, CAP 06/12/18 Benazepril Hcl* (Benazepril Hcl*) 10 Mg Tablet, 10 MG PO, #60 TAB 06/12/18 Budesonide-Formoterol Fumarate* (Symbicort*) 80-4.5 Mcg Hfa.aer.ad, 2 PUFF INHALATION, BOTTLE 06/12/18 Lactulose* (Lactulose*) 10 Gm/15 Ml Solution, 10 GM PO, ML 06/12/18 Furosemide* (Furosemide*) 80 Mg Tablet, 80 MG PO BID, #60 TAB 04/19/18 Pregabalin* (Lyrica*) 50 Mg Capsule, 50 MG PO BID, CAP 03/05/18 Omeprazole* (Omeprazole*) 40 Mg Capsule.dr, 40 MG PO DAILY, #30 CAP 03/05/18 Zolpidem Tartrate* (Ambien*) 10 Mg Tablet, 10 MG PO QHS PRN for INSOMNIA, TAB 03/05/18 Tamsulosin Hcl* (Tamsulosin Hcl*) 0.4 Mg Cap.er.24h, 0.4 MG PO HS, CAP 03/05/18 Sevelamer Carbonate* (Renvela*) 800 Mg Tablet, 1.6 GM PO WITH MEALS, TAB 03/05/18 Metoprolol Succinate* (Toprol XL*) 50 Mg Tab.er.24h, 50 MG PO DAILY, #30 TAB 03/05/18 Insulin Degludec (Tresiba Flextouch U-100) 100 Unit/1 Ml Insuln.pen, 40 UNIT SQ QHS 03/05/18 Insulin Aspart* (Novolog Insulin Pen*) 100 Unit/Ml Soln, 12 UNIT SC WITH MEALS, EA 03/05/18 Fenofibrate Nanocrystallized* (Fenofibrate*) 145 Mg Tablet, 145 MG PO DAILY, TAB 03/05/18 Esomeprazole Mag Trihydrate (Nexium) 40 Mg Capsule.dr, 40 MG PO DAILY, #30 CAP 03/05/18 Duloxetine Hcl* (Cymbalta*) 60 Mg Capsule.dr, 60 MG PO DAILY, CAP 03/05/18 Docusate Sodium* (Colace*) 250 Mg Capsule, 250 MG PO BID, #60 CAP 03/05/18 Cyclobenzaprine Hcl* (Cyclobenzaprine Hcl*) 10 Mg Tablet, 10 MG PO Q6H, #60 TAB 03/05/18 Clopidogrel Bisulfate (Clopidogrel) 75 Mg Tablet, 75 MG PO DAILY, #30 TAB 03/05/18 Carvedilol* (Carvedilol*) 12.5 Mg Tablet, 12.5 MG PO DAILY, #60 TAB 03/05/18 Atorvastatin* (Atorvastatin*) 80 Mg Tablet, 80 MG PO QHS, #30 TAB 03/05/18 Aspirin* (Aspirin* EC) 81 Mg Tablet.dr, 81 MG PO DAILY, TAB 03/05/18 Apixaban* (Eliquis*) 2.5 Mg Tablet, 2.5 MG PO BID, TAB 03/05/18 Allergies Allergies: Coded Allergies: No Known Allergies (Unverified Allergy, Mild, 04/19/18) PMhx/Soc History of Surgery: Yes (Lower extremity bypass surgeries bilaterally, right foot partial amputation) Anesthesia Reaction: No Hx Neurological Disorder: No Hx Respiratory Disorders: Yes (asthma) Hx Cardiac Disorders: Yes (CAD, NH, pacemaker, peripheral arterial disease) Hx Psychiatric Problems: No Hx Miscellaneous Medical Probl: Yes (R foot osteomyelitis s/p R foot partial amputation, LLE cellulitis, ESRD on) Hx Alcohol Use: No Hx Substance Use: No Hx Tobacco Use: No FmHx Family History: No diabetes Physical Exam Vitals Vital Signs Date Temp Pulse Resp B/P (MAP) Pulse Ox O2 O2 Flow FiO2 Time Delivery Rate 07/04/18 98.2 94 22 145/65 100 Nasal 2.0 20:37 (91) Cannula 07/04/18 95 16 140/56 100 Nasal 2.0 19:24 (84) Cannula 07/04/18 99.0 100 22 128/69 98 18:23 (88) Physical Exam Const: In mild distress due to pain, speaking in full sentences Head: Atraumatic Eyes: Normal Conjunctiva ENT: Dry mucous membranes. Normal External Ears, Nose and Mouth. Neck: Full range of motion. No meningismus. No JVD Resp: Clear to auscultation bilaterally Cardio: Regular rate and rhythm, no murmurs. 2+ distal pulses in all 4 extremities Abd: Soft, distended, nontender. Normal bowel sounds Skin: No petechiae or rashes Back: No midline or flank tenderness Ext: No cyanosis, or edema. Left upper extremity AV fistula with palpable thrill Neur: Awake and alert, normal speech, no facial asymmetry, moving all extremities spontaneously and equally. Psych: Normal Mood and Affect Result Diagram: 07/04/18183407/04/185 Results 24 hrs Laboratory Tests Test 07/04/18 18:35 White Blood Count 17.6 10^3/ul Red Blood Count 4.32 10^6/ul Hemoglobin 13.1 g/dl Hematocrit 41.9 % Mean Corpuscular Volume 97.0 fl Mean Corpuscular Hemoglobin 30.3 pg Mean Corpuscular Hemoglobin Concent 31.3 g/dl Red Cell Distribution Width 14.6 % Platelet Count 193 10^3/UL Mean Platelet Volume 11.8 fl Immature Granulocytes % 0.800 % Neutrophils % 87.0 % Lymphocytes % 5.6 % Monocytes % 5.9 % Eosinophils % 0.4 % Basophils % 0.3 % Nucleated Red Blood Cells % 0.0 /100WBC Immature Granulocytes # 0.140 10^3/ul Neutrophils # 15.3 10^3/ul Lymphocytes # 1.0 10^3/ul Monocytes # 1.0 10^3/ul Eosinophils # 0.1 10^3/ul Basophils # 0.1 10^3/ul Nucleated Red Blood Cells # 0.0 10^3/ul Sodium Level 136 mmol/L Potassium Level 4.2 mmol/L Chloride Level 90 mmol/L Carbon Dioxide Level 33 mmol/L Anion Gap 13 Blood Urea Nitrogen 80 mg/dl Creatinine 3.88 mg/dl Est Glomerular Filtrat Rate mL/min 16 mL/min Glucose Level 314 mg/dl Calcium Level 9.5 mg/dl Troponin I 0.051 ng/ml Current Medications Medications Dose Sig/Rehana Start Time Status Last (Trade) Ordered Route PRN Stop Time Admin Dose Reason Admin Morphine 4 mg ONCE STAT 07/04/18 DC 07/04/18 Sulfate IV 18:41 19:19 (morphine) 07/04/18 18:42 Morphine 4 mg ONCE STAT 07/04/18 DC Sulfate IV 20:37 (morphine) 07/04/18 20:38 Ondansetron 4 mg ER BRIDGE 07/04/18 HCl (Zofran PRN IV 21:00 Inj) NAUSEA/VOMITI 07/05/18 20:59 NG 650 mg ER BRIDGE 07/04/18 Acetaminophen PRN PO 21:00 (Tylenol .MILD PAIN 4/17/19 20:59 Tab) 1-3 OR TEMP Procedures/MDM EMERGENT LABS AND DIAGNOSTIC STUDIES: Lab Results above were reviewed and interpreted by me. CBC: Leukocytosis of unclear etiology. BMP: Elevated BUN and creatinine, secondary to ESRD. No evidence of acidosis. Hyperglycemic. Troponin within normal limits, not indicative of cardiac ischemia 12-lead EKG #1 was interpreted by Ivelisse Aguilar MD: Sinus tachycardia at 101 bpm LVH with repolarization abnormality No acute ST or T wave changes suggestive of acute ischemia or STEMI. EKG #2: Rate/Rhythm: Normal sinus rhythm at 93 bpm QRS, ST, T-waves: LVH with repolarization abnormality, No changes consistent w/ acute ischemia Impression: No evidence of ischemia or arrhythmia Radiology Results as interpreted by Radiology below were reviewed by Tashi Aguilar MD: Chest x-ray: No acute abnormalities Initial Nursing notes reviewed. Previous Medical Records requested via the Electronic Health Record. EMERGENCY DEPARTMENT COURSE / MEDICAL DECISION MAKING: Patients symptoms are concerning for a cardiac etiology. Other etiologies considered were PE, aortic dissection, pneumonia, pneumothorax, esophageal rupture, but lower suspicion for these. EKG showed repolarization abnormality but no evidence of acute ischemia.. Initial troponin negative. CXR grossly unremarkable. However, patient has high risk of adverse events. Patient is not safe for discharge and will need inpatient monitoring and further evaluation. Further workup will be deferred to the inpatient team. Accepting Care Team: Current data and ongoing care discussed. Time: Time of admission Primary Provider: Dr. Arlette Ojeda Diagnosis: Primary Impression: Chest pain Chest pain type: unspecified Qualified Codes: R07.9 - Chest pain, unspecified Additional Impressions: Leukocytosis Leukocytosis type: unspecified Qualified Codes: D72.829 - Elevated white blood cell count, unspecified ESRD on hemodialysis Condition: IEK Nava MD Jul 04, 2018 18:59
[2018-07-04] MEDS ORDERED: ACETAMINOPHEN 325 MG TAB PO PRN (21:00)
[2018-07-04] MEDS ORDERED: ONDANSETRON 4 MG INJ IV PRN (21:00)
[2018-07-04] MEDS ORDERED: HYDROmorphONE 0.5 MG/0.5 ML SYG IV STA (22:20)
[2018-07-04 22:52] VITALS: PULSE 97
[2018-07-04 23:00] VITALS: BP 156/75; PULSE 98; RESP 22
[2018-07-04 23:11] VITALS: Ht 152.4 cm; Wt 97.3 kg
[2018-07-05] VITALS (23 sets, daily range): BP systolic 102–160; BP diastolic 54–88; PULSE 80–101; RESP 19–20
[2018-07-05] MEDS ORDERED: LACTULOSE 30ML CUP PO PRN (01:00)
[2018-07-05] MEDS ORDERED: ZOLPIDEM 5 MG TAB PO PRN (01:00)
[2018-07-05] MEDS ORDERED: ACETAMINOPHEN 500 MG TAB PO PRN (01:00)
[2018-07-05] MEDS ORDERED: ALBUTEROL/IPRATROPIUM (NEB) 3 ML AMP HHN PRN (01:00)
[2018-07-05] MEDS ORDERED: ONDANSETRON 4 MG TAB PO PRN (01:00)
[2018-07-05] MEDS: CYCLOBENZAPRINE 10 MG TAB PO SCH ×4 (01:13→18:30)
[2018-07-05] MEDS: morphine 2 MG INJ IV PRN ×5 (01:35→22:14)
[2018-07-05] MEDS ORDERED: VANCOMYCIN 1 GM (PMX) 250 ML IVPB ONE (03:30)
[2018-07-05] MEDS ORDERED: PIPER-TAZO 3.375 GM IV (PMX) 100 ML IVPB ONE (03:30)
[2018-07-05] MEDS: FUROSEMIDE 40 MG TAB PO SCH ×2 (06:20→17:09)
--- NOTE | 2018-07-05 08:22 | CONS ---
Assessment/Plan Assessment/Plan Assessment/Plan Consult dictated 1. CKD, will HD today 2. Admit with chest pain and troponin neg, will need Echo to r/o pericarditis although I hear no rub 3. Elev, WBC, cultures pending, on abx 4. Need for po diuretics? 5. Will need wound care follow up left foot burn and cellulitis 6. Will follow Thank you Consultation Date/Type/Reason Admit Date/Time Jul 04, 2018 at 20:45 Type of Consult Nephrology Date/Time of Note DATE: 07/05/18 TIME: 08:20 Past Medical History Home Meds Reported Medications Econazole Nitrate (Econazole Nitrate) 15 Gm Cream..g., 15 GM TP 06/12/18 Ezetimibe* (Zetia*) 10 Mg Tablet, 10 MG PO, TAB 06/12/18 Ondansetron Hcl* (Ondansetron Hcl*) 8 Mg Tablet, 8 MG PO, TAB 06/12/18 Fluocinonide* (Fluocinonide* Cream) 0.1% - 120 Gm Cream..g., 1 APPLIC TOP, TUB 06/12/18 Ipratropium Lowber* (Atrovent HFA*) 12.9 Gm Aer.w.adap, 2 PUFF INHALATION for SHORTNESS OF BREATH, #1 INHALER 06/12/18 Metolazone* (Metolazone*) 10 Mg Tablet, 10 MG PO, TAB 06/12/18 Promethazine/Phenyleph/Codeine (Vhojtmhreeil-WQ-Tfjyqgu Syrup) 118 Ml Syrup, 118 ML PO 06/12/18 Amitriptyline Hcl* (Amitriptyline Hcl*) 50 Mg Tablet, 50 MG PO, #30 TAB 06/12/18 Duloxetine Hcl* (Duloxetine Hcl*) 60 Mg Capsule.dr, 60 MG PO, #30 CAP 06/12/18 Icosapent Ethyl (VASCEPA) 1 Gm Capsule, 1 GM PO, CAP 06/12/18 Benazepril Hcl* (Benazepril Hcl*) 10 Mg Tablet, 10 MG PO, #60 TAB 06/12/18 Budesonide-Formoterol Fumarate* (Symbicort*) 80-4.5 Mcg Hfa.aer.ad, 2 PUFF INHALATION, BOTTLE 06/12/18 Lactulose* (Lactulose*) 10 Gm/15 Ml Solution, 10 GM PO, ML 06/12/18 Furosemide* (Furosemide*) 80 Mg Tablet, 80 MG PO BID, #60 TAB 04/19/18 Sevelamer Carbonate* (Renvela*) 800 Mg Tablet, 1.6 GM PO WITH MEALS, TAB 03/05/18 Metoprolol Succinate* (Toprol XL*) 50 Mg Tab.er.24h, 50 MG PO DAILY, #30 TAB 03/05/18 Insulin Degludec (Tresiba Flextouch U-100) 100 Unit/1 Ml Insuln.pen, 40 UNIT SQ QHS 03/05/18 Insulin Aspart* (Novolog Insulin Pen*) 100 Unit/Ml Soln, 12 UNIT SC WITH MEALS, EA 03/05/18 Esomeprazole Mag Trihydrate (Nexium) 40 Mg Capsule.dr, 40 MG PO DAILY, #30 CAP 03/05/18 Docusate Sodium* (Colace*) 250 Mg Capsule, 250 MG PO BID, #60 CAP 03/05/18 Cyclobenzaprine Hcl* (Cyclobenzaprine Hcl*) 10 Mg Tablet, 10 MG PO Q6H, #60 TAB 03/05/18 Clopidogrel Bisulfate (Clopidogrel) 75 Mg Tablet, 75 MG PO DAILY, #30 TAB 03/05/18 Atorvastatin* (Atorvastatin*) 80 Mg Tablet, 80 MG PO QHS, #30 TAB 03/05/18 Aspirin* (Aspirin* EC) 81 Mg Tablet.dr, 81 MG PO DAILY, TAB 03/05/18 Apixaban* (Eliquis*) 2.5 Mg Tablet, 2.5 MG PO BID, TAB 03/05/18 Discontinued Reported Medications Fluocinonide* (Fluocinonide* Cream) 0.1% - 120 Gm Cream..g., 1 APPLIC TOP, TUB 06/12/18 Pregabalin* (Lyrica*) 50 Mg Capsule, 50 MG PO BID, CAP 03/05/18 Omeprazole* (Omeprazole*) 40 Mg Capsule.dr, 40 MG PO DAILY, #30 CAP 03/05/18 Zolpidem Tartrate* (Ambien*) 10 Mg Tablet, 10 MG PO QHS PRN for INSOMNIA, TAB 03/05/18 Tamsulosin Hcl* (Tamsulosin Hcl*) 0.4 Mg Cap.er.24h, 0.4 MG PO HS, CAP 03/05/18 Fenofibrate Nanocrystallized* (Fenofibrate*) 145 Mg Tablet, 145 MG PO DAILY, TAB 03/05/18 Duloxetine Hcl* (Cymbalta*) 60 Mg Capsule.dr, 60 MG PO DAILY, CAP 03/05/18 Carvedilol* (Carvedilol*) 12.5 Mg Tablet, 12.5 MG PO DAILY, #60 TAB 03/05/18 Medications Current Medications Ondansetron HCl (Zofran Inj) 4 mg ER BRIDGE PRN IV NAUSEA/VOMITING; Start 07/04/18 at 21:00; Stop 07/05/18 at 20:59 Acetaminophen (Tylenol Tab) 650 mg ER BRIDGE PRN PO .MILD PAIN 1-3 OR TEMP; Start 07/04/18 at 21:00; Stop 07/05/18 at 20:59 Amitriptyline HCl (Elavil) 50 mg DAILY PO ; Start 07/05/18 at 09:00 Apixaban (Eliquis) 2.5 mg BID PO ; Start 07/05/18 at 09:00 Aspirin (Halfprin) 81 mg DAILY PO ; Start 07/05/18 at 09:00 Atorvastatin Calcium (Lipitor) 80 mg QHS PO ; Start 07/05/18 at 21:00 Clopidogrel Bisulfate (plaVIX) 75 mg DAILY PO ; Start 07/05/18 at 09:00 Cyclobenzaprine HCl (Flexeril) 10 mg Q6H PO Last administered on 07/05/18at 06:20; Admin Dose 10 MG; Start 07/05/18 at 00:30 Docusate Sodium (Colace) 250 mg BID PO ; Start 07/05/18 at 09:00 Duloxetine HCl (Cymbalta) 60 mg DAILY PO ; Start 07/05/18 at 09:00 Econazole Nitrate (Spectazole 1% Cr) 15 applic DAILY TOP ; Start 07/05/18 at 09:00 EZETIMIBE (Zetia) 10 mg DAILY PO ; Start 07/05/18 at 09:00 Fluocinonide (Lidex 0.05% Cr) 1 applic DAILY TOP ; Start 07/05/18 at 09:00 Insulin Aspart (Novolog Insulin Pen) 12 unit WITH MEALS SC ; Start 07/05/18 at 07:55 Metolazone (Zaroxolyn) 10 mg DAILY PO ; Start 07/05/18 at 09:00 Sevelamer Carbonate (Renvela) 1.6 gm WITH MEALS PO ; Start 07/05/18 at 07:55 Carvedilol (Coreg) 12.5 mg DAILY PO ; Start 07/05/18 at 09:00 Fenofibrate (Tricor) 145 mg DAILY PO ; Start 07/05/18 at 09:00 Tamsulosin HCl (Flomax) 0.4 mg HS PO ; Start 07/05/18 at 21:00 Zolpidem Tartrate (Ambien) 10 mg HS PRN PO INSOMNIA; Start 07/05/18 at 01:00 Pregabalin (Lyrica) 50 mg BID PO ; Start 07/05/18 at 09:00 Furosemide (Lasix) 80 mg BID DIURETICS PO Last administered on 07/05/18at 06:20; Admin Dose 80 MG; Start 07/05/18 at 06:00 Lactulose (Enulose) 10 gm DAILY PRN PO CONSTIPATION; Start 07/05/18 at 01:00 Benazepril HCl (Lotensin) 10 mg DAILY PO ; Start 07/05/18 at 09:00 Ondansetron HCl (Zofran Tab) 8 mg Q6H PRN PO NAUSEA AND/OR VOMITING; Start 07/05/18 at 01:00 Albuterol/ Ipratropium (Duoneb) 3 ml Q8H RESP THERAPY PRN HHN SHORTNESS OF BREATH; Start 07/05/18 at 01:00 Acetaminophen (Tylenol Tab) 500 mg Q6H PRN PO MILD PAIN(1-3)OR ELEVATED TEMP; Start 07/05/18 at 01:00 Morphine Sulfate (morphine) 2 mg Q3 PRN IV SEVERE PAIN LEVEL 7-10 Last administered on 07/05/18at 01:35; Admin Dose 2 MG; Start 07/05/18 at 01:00 Fluticasone/ Vilanterol (Breo Ellipta 100-25 Mcg Inh) 1 inh DAILY INH ; Start 07/05/18 at 09:00 Fish Oil (Fish Oil) 1,000 mg BID PO ; Start 07/05/18 at 09:00 Non-Formulary Medication 1 ea DAILY PO ; Start 07/05/18 at 09:00; Status UNV Non-Formulary Medication 1 ea HS SC ; Start 07/05/18 at 21:00; Status UNV Allergies: Coded Allergies: No Known Allergies (Unverified Allergy, Mild, 07/04/18) Past Surgical History Past Surgical Hx: other Social History Smoking Status: Former smoker Exam/Review of Systems Vital Signs Vitals Vital Signs Date Temp Pulse Resp B/P (MAP) Pulse Ox O2 O2 Flow FiO2 Time Delivery Rate 07/05/18 81 08:05 07/05/18 98.7 20 133/60 96 Nasal 07:13 (84) Cannula 07/04/18 2.0 23:30 Intake and Output 07/04/18 07/04/18 07/05/18 1515:00 23:00 07:00 IntakeIntake Total 450 ml BalanceBalance 450 ml Labs Result Diagram: 07/04/18 1835 07/04/18 1835 Results 24hrs Laboratory Tests Test 07/04/18 18:35 07/04/18 23:31 07/05/18 01:00 07/05/18 02:52 White Blood Count 17.6 #H Red Blood Count 4.32 #L Hemoglobin 13.1 #L Hematocrit 41.9 L Mean Corpuscular 97.0 Volume Mean Corpuscular 30.3 Hemoglobin Mean Corpuscular 31.3 L Hemoglobin Concent Red Cell 14.6 H Distribution Width Platelet Count 193 # Mean Platelet Volume 11.8 H Immature 0.800 H Granulocytes % Neutrophils % 87.0 H Lymphocytes % 5.6 L Monocytes % 5.9 Eosinophils % 0.4 Basophils % 0.3 Nucleated Red Blood 0.0 Cells % Immature 0.140 H Granulocytes # Neutrophils # 15.3 H Lymphocytes # 1.0 Monocytes # 1.0 H Eosinophils # 0.1 Basophils # 0.1 Nucleated Red Blood 0.0 Cells # Sodium Level 136 Potassium Level 4.2 Chloride Level 90 L Carbon Dioxide Level 33 H Anion Gap 13 Blood Urea Nitrogen 80 H Creatinine 3.88 H Est Glomerular 16 L Filtrat Rate mL/min Glucose Level 314 H Calcium Level 9.5 Troponin I 0.051 0.074 Bedside Glucose 232 H 218 Creatine Kinase 53 Creatine Kinase 3.7 Index Creatinine Kinase MB 1.98 (Mass) Test 07/05/18 06:53 Creatine Kinase 39 Creatine Kinase 3.6 Index Creatinine Kinase MB 1.39 (Mass) Troponin I 0.075 Medications Medications Current Medications Ondansetron HCl (Zofran Inj) 4 mg ER BRIDGE PRN IV NAUSEA/VOMITING; Start 07/04/18 at 21:00; Stop 07/05/18 at 20:59 Acetaminophen (Tylenol Tab) 650 mg ER BRIDGE PRN PO .MILD PAIN 1-3 OR TEMP; Start 07/04/18 at 21:00; Stop 07/05/18 at 20:59 Amitriptyline HCl (Elavil) 50 mg DAILY PO ; Start 07/05/18 at 09:00 Apixaban (Eliquis) 2.5 mg BID PO ; Start 07/05/18 at 09:00 Aspirin (Halfprin) 81 mg DAILY PO ; Start 07/05/18 at 09:00 Atorvastatin Calcium (Lipitor) 80 mg QHS PO ; Start 07/05/18 at 21:00 Clopidogrel Bisulfate (plaVIX) 75 mg DAILY PO ; Start 07/05/18 at 09:00 Cyclobenzaprine HCl (Flexeril) 10 mg Q6H PO Last administered on 07/05/18at 06:20; Admin Dose 10 MG; Start 07/05/18 at 00:30 Docusate Sodium (Colace) 250 mg BID PO ; Start 07/05/18 at 09:00 Duloxetine HCl (Cymbalta) 60 mg DAILY PO ; Start 07/05/18 at 09:00 Econazole Nitrate (Spectazole 1% Cr) 15 applic DAILY TOP ; Start 07/05/18 at 09:00 EZETIMIBE (Zetia) 10 mg DAILY PO ; Start 07/05/18 at 09:00 Fluocinonide (Lidex 0.05% Cr) 1 applic DAILY TOP ; Start 07/05/18 at 09:00 Insulin Aspart (Novolog Insulin Pen) 12 unit WITH MEALS SC ; Start 07/05/18 at 07:55 Metolazone (Zaroxolyn) 10 mg DAILY PO ; Start 07/05/18 at 09:00 Sevelamer Carbonate (Renvela) 1.6 gm WITH MEALS PO ; Start 07/05/18 at 07:55 Carvedilol (Coreg) 12.5 mg DAILY PO ; Start 07/05/18 at 09:00 Fenofibrate (Tricor) 145 mg DAILY PO ; Start 07/05/18 at 09:00 Tamsulosin HCl (Flomax) 0.4 mg HS PO ; Start 07/05/18 at 21:00 Zolpidem Tartrate (Ambien) 10 mg HS PRN PO INSOMNIA; Start 07/05/18 at 01:00 Pregabalin (Lyrica) 50 mg BID PO ; Start 07/05/18 at 09:00 Furosemide (Lasix) 80 mg BID DIURETICS PO Last administered on 07/05/18at 06:20; Admin Dose 80 MG; Start 07/05/18 at 06:00 Lactulose (Enulose) 10 gm DAILY PRN PO CONSTIPATION; Start 07/05/18 at 01:00 Benazepril HCl (Lotensin) 10 mg DAILY PO ; Start 07/05/18 at 09:00 Ondansetron HCl (Zofran Tab) 8 mg Q6H PRN PO NAUSEA AND/OR VOMITING; Start 07/05/18 at 01:00 Albuterol/ Ipratropium (Duoneb) 3 ml Q8H RESP THERAPY PRN HHN SHORTNESS OF BREATH; Start 07/05/18 at 01:00 Acetaminophen (Tylenol Tab) 500 mg Q6H PRN PO MILD PAIN(1-3)OR ELEVATED TEMP; Start 07/05/18 at 01:00 Morphine Sulfate (morphine) 2 mg Q3 PRN IV SEVERE PAIN LEVEL 7-10 Last administered on 07/05/18at 01:35; Admin Dose 2 MG; Start 07/05/18 at 01:00 Fluticasone/ Vilanterol (Breo Ellipta 100-25 Mcg Inh) 1 inh DAILY INH ; Start 07/05/18 at 09:00 Fish Oil (Fish Oil) 1,000 mg BID PO ; Start 07/05/18 at 09:00 Non-Formulary Medication 1 ea DAILY PO ; Start 07/05/18 at 09:00; Status UNV Non-Formulary Medication 1 ea HS SC ; Start 07/05/18 at 21:00; Status UNV SALBADOR SHIRLEY MD Jul 05, 2018 08:22
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
[2018-07-05] MEDS: FLUOCINONIDE 0.05% CR 30GM TUBE TOP SCH (09:00)
[2018-07-05] MEDS ORDERED: ASPIRIN (EC) 81 MG TAB PO SCH (09:00)
[2018-07-05] MEDS: BENAZEPRIL 10 MG TAB PO SCH (09:00)
[2018-07-05] MEDS ORDERED: APIXABAN 5 MG TABLET PO SCH (09:00)
[2018-07-05] MEDS: ECONAZOLE TOP SCH (09:00)
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
[2018-07-05] MEDS: SEVELAMER CARBONATE 0.8 GM PKT PO SCH ×3 (09:49→17:09)
[2018-07-05] MEDS: FLUTICASONE/VILANTEROL 100-25 INH SCH (09:54)
[2018-07-05] MEDS: FISH OIL 1,000 MG CAP PO SCH ×2 (09:55→20:23)
[2018-07-05] MEDS: DOCUSATE SODIUM 250 MG CAP PO SCH ×2 (09:55→20:23)
[2018-07-05] MEDS: AMITRIPTYLINE 50 MG TAB PO SCH (09:56)
[2018-07-05] MEDS: DULOXETINE 30 MG CAP DR PO SCH (09:57)
[2018-07-05] MEDS: CLOPIDOGREL 75 MG TAB PO SCH (10:03)
[2018-07-05] MEDS: PREGABALIN 50 MG CAP PO SCH ×2 (10:03→20:24)
[2018-07-05] MEDS: FENOFIBRATE 145 MG TAB PO SCH (10:03)
[2018-07-05] MEDS: EZETIMIBE 10 MG TAB PO SCH (10:04)
[2018-07-05] MEDS: METOLAZONE 10 MG TAB PO SCH (10:10)
[2018-07-05] MEDS: INSULIN ASPART [NOVOLOG] 3 ML PEN SC SCH ×3 (10:12→17:17)
--- NOTE | 2018-07-05 10:13 | CONS ---
Assessment/Plan Assessment/Plan Hospital Course (Demo Recall) Chest/neck pain: The neck pain may be musculoskeletal and though the chest pain started after and may be referred pain, there is a good chance that they are separate from each other. Currently he has neck pain when he moves his head but no chest pain. He has known CAD with at least one vessel APPRAISER LAND. Unclear what the rest of the anatomy is. His trops are negative which is reassuring. Stress [place] ting with his known severe disease and cardiomyopathy will only yield confusing results. He may be having unstable angina and cardiac cath for coronary evaluation is appropriate and reasonable. The pt agrees and wishes to proceed. He understands the risk and benefits. Chronic systolic heart failure: currently euvolemic Ischemic cardiomyopathy EF 20% s/p ICD for secondary prevention CAD with unclear history: per pt sounds like at least one vessel APPRAISER L[place] Severe PAD s/p prior bypass s/p right transmetatarsal amputation ESRD on HD Uncontrolled DM HTN COPD Burn wound/cellulitis depression Likely noncompliance -cardiac cath tomorrow at 3 pm -can have light breakfast in am, then NPO -hold Eliquis -d/c ASA to avoid triple therapy unless PCI is needed -plavix -coreg 12.5mg BID -benazepril 10mg -lasix 80mg PO BID -lipitor 80mg, zetia -HD per nephrology Consultation Date/Type/Reason Admit Date/Time Jul 04, 2018 at 20:45 Date of Consultation: Jul 05, 2018 Type of Consult Cardiology Reason for Consultation Chest pain Requesting Provider: LAURA AHN MD Date/Time of Note DATE: 07/05/18 TIME: 09:52 Hx of Present Illness 63 yo M with a h/o ischemic cardiomyopathy EF 20%, s/p ICD for secondary prevention, chronic systolic heart failure, CAD with unclear history, severe PAD s/p prior bypass, s/p right transmetatarsal amputation, ESRD on HD, uncontrolled DM, HTN, COPD, depression, recent admission for cellulitis and burn wound, who was admitted for chest pain. He was apparently at home when he started to have left sided neck pain which then started to cause severe substernal chest pressure. The pain did not improve so he called out to his son who called paramedics. The pain did not improve with NTG but did eventually improve with morphine. The chest pain has resolved but the neck pain is still present though less. The neck pain is worse with moving his head but the chest pain is not related. He notes that 3 years ago he had a cardiac cath somewhere in [place] and he was told his main artery was 100% occluded with small arteries and nothin g could be done. Sounds like possibly an LAD APPRAISER L[place]. Unclear what the other coronaries had but he was not offered CABG or PCI. He is not very active due to his multiple issues but he can walk independently. Past Medical History per [facility] Med[facility] Reported Medications Econazole Nitrate (Econazole Nitrate) 15 Gm Cream..g., 15 GM TP 06/12/18 Ezetimibe* (Zetia*) 10 Mg Tablet, 10 MG PO, TAB 06/12/18 Ondansetron Hcl* (Ondansetron Hcl*) 8 Mg Tablet, 8 MG PO, TAB 06/12/18 Fluocinonide* (Fluocinonide* Cream) 0.1% - 120 Gm Cream..g., 1 APPLIC TOP, TUB 06/12/18 Ipratropium [place]* (Atrovent HFA*) 12.9 Gm Aer.w.adap, 2 PUFF INHALATION for SHORTNESS OF BREATH, #1 INHALER 06/12/18 Metolazone* (Metolazone*) 10 Mg Tablet, 10 MG PO, TAB 06/12/18 Promethazine/Phenyleph/Codeine (Fkcfntmcfyaq-QD-Mmfktbz Syrup) 118 Ml Syrup, 118 ML PO 06/12/18 Amitriptyline Hcl* (Amitriptyline Hcl*) 50 Mg Tablet, 50 MG PO, #30 TAB 06/12/18 Duloxetine Hcl* (Duloxetine Hcl*) 60 Mg Capsule.dr, 60 MG PO, #30 CAP 06/12/18 Icosapent Ethyl (VASCEPA) 1 Gm Capsule, 1 GM PO, CAP 06/12/18 Benazepril Hcl* (Benazepril Hcl*) 10 Mg Tablet, 10 MG PO, #60 TAB 06/12/18 Budesonide-Formoterol Fumarate* (Symbicort*) 80-4.5 Mcg Hfa.aer.ad, 2 PUFF INHALATION, BOTTLE 06/12/18 Lactulose* (Lactulose*) 10 Gm/15 Ml Solution, 10 GM PO, ML 06/12/18 Furosemide* (Furosemide*) 80 Mg Tablet, 80 MG PO BID, #60 TAB 04/19/18 Sevelamer Carbonate* (Renvela*) 800 Mg Tablet, 1.6 GM PO WITH MEALS, TAB 03/05/18 Metoprolol Succinate* (Toprol XL*) 50 Mg Tab.er.24h, 50 MG PO DAILY, #30 TAB 03/05/18 Insulin Degludec (Tresiba Flextouch U-100) 100 Unit/1 Ml Insuln.pen, 40 UNIT SQ QHS 03/05/18 Insulin Aspart* (Novolog Insulin Pen*) 100 Unit/Ml Soln, 12 UNIT SC WITH MEALS, EA 03/05/18 Esomeprazole Mag Trihydrate (Nexium) 40 Mg Capsule.dr, 40 MG PO DAILY, #30 CAP 03/05/18 Docusate Sodium* (Colace*) 250 Mg Capsule, 250 MG PO BID, #60 CAP 03/05/18 Cyclobenzaprine Hcl* (Cyclobenzaprine Hcl*) 10 Mg Tablet, 10 MG PO Q6H, #60 TAB 03/05/18 Clopidogrel Bisulfate (Clopidogrel) 75 Mg Tablet, 75 MG PO DAILY, #30 TAB 03/05/18 Atorvastatin* (Atorvastatin*) 80 Mg Tablet, 80 MG PO QHS, #30 TAB 03/05/18 Aspirin* (Aspirin* EC) 81 Mg Tablet.dr, 81 MG PO DAILY, TAB 03/05/18 Apixaban* (Eliquis*) 2.5 Mg Tablet, 2.5 MG PO BID, TAB 03/05/18 Discontinued Reported Medications Fluocinonide* (Fluocinonide* Cream) 0.1% - 120 Gm Cream..g., 1 APPLIC TOP, TUB 06/12/18 Pregabalin* (Lyrica*) 50 Mg Capsule, 50 MG PO BID, CAP 03/05/18 Omeprazole* (Omeprazole*) 40 Mg Capsule.dr, 40 MG PO DAILY, #30 CAP 03/05/18 Zolpidem Tartrate* (Ambien*) 10 Mg Tablet, 10 MG PO QHS PRN for INSOMNIA, TAB 03/05/18 Tamsulosin Hcl* (Tamsulosin Hcl*) 0.4 Mg Cap.er.24h, 0.4 MG PO HS, CAP 03/05/18 Fenofibrate Nanocrystallized* (Fenofibrate*) 145 Mg Tablet, 145 MG PO DAILY, TAB 03/05/18 Duloxetine Hcl* (Cymbalta*) 60 Mg Capsule.dr, 60 MG PO DAILY, CAP 03/05/18 Carvedilol* (Carvedilol*) 12.5 Mg Tablet, 12.5 MG PO DAILY, #60 TAB 03/05/18 Medications Current Medications Ondansetron HCl (Zofran Inj) 4 mg ER BRIDGE PRN IV NAUSEA/VOMITING; Start 07/04/18 at 21:00; Stop 07/05/18 at 20:59 Acetaminophen (Tylenol Tab) 650 mg ER BRIDGE PRN PO .MILD PAIN 1-3 OR TEMP; Start 07/04/18 at 21:00; Stop 07/05/18 at 20:59 Amitriptyline HCl (Elavil) 50 mg DAILY PO ; Start 07/05/18 at 09:00 Apixaban (Eliquis) 2.5 mg BID PO ; Start 07/05/18 at 09:00 Aspirin (Halfprin) 81 mg DAILY PO ; Start 07/05/18 at 09:00 Atorvastatin Calcium (Lipitor) 80 mg QHS PO ; Start 07/05/18 at 21:00 Clopidogrel Bisulfate (plaVIX) 75 mg DAILY PO ; Start 07/05/18 at 09:00 Cyclobenzaprine HCl (Flexeril) 10 mg Q6H PO Last administered on 07/05/18at 06:20; Admin Dose 10 MG; Start 07/05/18 at 00:30 Docusate Sodium (Colace) 250 mg BID PO ; Start 07/05/18 at 09:00 Duloxetine HCl (Cymbalta) 60 mg DAILY PO ; Start 07/05/18 at 09:00 Econazole Nitrate (Spectazole 1% Cr) 15 applic DAILY TOP ; Start 07/05/18 at 09:00 EZETIMIBE (Zetia) 10 mg DAILY PO ; Start 07/05/18 at 09:00 Fluocinonide (Lidex 0.05% Cr) 1 applic DAILY TOP ; Start 07/05/18 at 09:00 Insulin Aspart (Novolog Insulin Pen) 12 unit WITH MEALS SC ; Start 07/05/18 at 07:55 Metolazone (Zaroxolyn) 10 mg DAILY PO ; Start 07/05/18 at 09:00 Sevelamer Carbonate (Renvela) 1.6 gm WITH MEALS PO ; Start 07/05/18 at 07:55 Carvedilol (Coreg) 12.5 mg DAILY PO ; Start 07/05/18 at 09:00 Fenofibrate (Tricor) 145 mg DAILY PO ; Start 07/05/18 at 09:00 Tamsulosin HCl (Flomax) 0.4 mg HS PO ; Start 07/05/18 at 21:00 Zolpidem Tartrate (Ambien) 10 mg HS PRN PO INSOMNIA; Start 07/05/18 at 01:00 Pregabalin (Lyrica) 50 mg BID PO ; Start 07/05/18 at 09:00 Furosemide (Lasix) 80 mg BID DIURETICS PO Last administered on 07/05/18at 06:20; Admin Dose 80 MG; Start 07/05/18 at 06:00 Lactulose (Enulose) 10 gm DAILY PRN PO CONSTIPATION; Start 07/05/18 at 01:00 Benazepril HCl (Lotensin) 10 mg DAILY PO ; Start 07/05/18 at 09:00 Ondansetron HCl (Zofran Tab) 8 mg Q6H PRN PO NAUSEA AND/OR VOMITING; Start 07/05/18 at 01:00 Albuterol/ Ipratropium (Duoneb) 3 ml Q8H RESP THERAPY PRN HHN SHORTNESS OF BREATH; Start 07/05/18 at 01:00 Acetaminophen (Tylenol Tab) 500 mg Q6H PRN PO MILD PAIN(1-3)OR ELEVATED TEMP; Start 07/05/18 at 01:00 Morphine Sulfate (morphine) 2 mg Q3 PRN IV SEVERE PAIN LEVEL 7-10 Last administered on 07/05/18at 01:35; Admin Dose 2 MG; Start 07/05/18 at 01:00 Fluticasone/ Vilanterol (Breo Ellipta 100-25 Mcg Inh) 1 inh DAILY INH ; Start 07/05/18 at 09:00 Fish Oil (Fish Oil) 1,000 mg BID PO ; Start 07/05/18 at 09:00 Non-Formulary Medication 1 ea DAILY PO ; Start 07/05/18 at 09:00; Status UNV Non-Formulary Medication 1 ea HS SC ; Start 07/05/18 at 21:00; Status UNV Allergies: Coded Allergies: No Known Allergies (Unverified Allergy, Mild, 07/04/18) Past Surgical History Past Surgical Hx: noncontributory, coronary bypass surgery, endoscopy, other Social History Alcohol Use: none Smoking Status: Former smoker Drug Use: none, other (High probability of being addicted to the opioids.) Exam/Review of Systems Vital Signs Vitals Vital Signs Date Temp Pulse Resp B/P (MAP) Pulse Ox O2 O2 Flow FiO2 Time Delivery Rate 07/05/18 81 08:05 07/05/18 98.7 20 133/60 96 Nasal 07:13 (84) Cannula 07/04/18 2.0 23:30 Intake and Output 07/04/18 07/04/18 07/05/18 1414:59 22:59 06:59 IntakeIntake Total 450 ml BalanceBalance 450 ml Exam Constitutional: alert, oriented Psych: no complaints, nl mood/affect Head: normocephalic, atraumatic Neck: supple; No jvd Respiratory: wheezing (mild); No clear to auscultation Cardiovascular: regular rate and rhythm, edema (trace), systolic murmur (2/6 [place]) Gastrointestinal: soft, non-tender; No distended Extremities: No normal pulses Neurological: nl mental status, nl speech Skin: No rash or lesions Labs Result Diagram: 07/04/18 1835 07/04/18 1835 Results 24hrs Laboratory Tests Test 07/04/18 18:35 07/04/18 23:31 07/05/18 01:00 07/05/18 02:52 White Blood Count 17.6 #H Red Blood Count 4.32 #L Hemoglobin 13.1 #L Hematocrit 41.9 L Mean Corpuscular 97.0 Volume Mean Corpuscular 30.3 Hemoglobin Mean Corpuscular 31.3 L Hemoglobin Concent Red Cell 14.6 H Distribution Width Platelet Count 193 # Mean Platelet Volume 11.8 H Immature 0.800 H Granulocytes % Neutrophils % 87.0 H Lymphocytes % 5.6 L Monocytes % 5.9 Eosinophils % 0.4 Basophils % 0.3 Nucleated Red Blood 0.0 Cells % Immature 0.140 H Granulocytes # Neutrophils # 15.3 H Lymphocytes # 1.0 Monocytes # 1.0 H Eosinophils # 0.1 Basophils # 0.1 Nucleated Red Blood 0.0 Cells # Sodium Level 136 Potassium Level 4.2 Chloride Level 90 L Carbon Dioxide Level 33 H Anion Gap 13 Blood Urea Nitrogen 80 H Creatinine 3.88 H Est Glomerular 16 L Filtrat Rate mL/min Glucose Level 314 H Calcium Level 9.5 Troponin I 0.051 0.074 Bedside Glucose 232 H 218 Creatine Kinase 53 Creatine Kinase 3.7 Index Creatinine Kinase MB 1.98 (Mass) Test 07/05/18 06:53 07/05/18 09:34 Creatine Kinase 39 Creatine Kinase 3.6 Index Creatinine Kinase MB 1.39 (Mass) Troponin I 0.075 Bedside Glucose 189 Medications Medications Current Medications Ondansetron HCl (Zofran Inj) 4 mg ER BRIDGE PRN IV NAUSEA/VOMITING; Start 07/04/18 at 21:00; Stop 07/05/18 at 20:59 Acetaminophen (Tylenol Tab) 650 mg ER BRIDGE PRN PO .MILD PAIN 1-3 OR TEMP; Start 07/04/18 at 21:00; Stop 07/05/18 at 20:59 Amitriptyline HCl (Elavil) 50 mg DAILY PO ; Start 07/05/18 at 09:00 Apixaban (Eliquis) 2.5 mg BID PO ; Start 07/05/18 at 09:00 Aspirin (Halfprin) 81 mg DAILY PO ; Start 07/05/18 at 09:00 Atorvastatin Calcium (Lipitor) 80 mg QHS PO ; Start 07/05/18 at 21:00 Clopidogrel Bisulfate (plaVIX) 75 mg DAILY PO ; Start 07/05/18 at 09:00 Cyclobenzaprine HCl (Flexeril) 10 mg Q6H PO Last administered on 07/05/18at 06:20; Admin Dose 10 MG; Start 07/05/18 at 00:30 Docusate Sodium (Colace) 250 mg BID PO ; Start 07/05/18 at 09:00 Duloxetine HCl (Cymbalta) 60 mg DAILY PO ; Start 07/05/18 at 09:00 Econazole Nitrate (Spectazole 1% Cr) 15 applic DAILY TOP ; Start 07/05/18 at 09:00 EZETIMIBE (Zetia) 10 mg DAILY PO ; Start 07/05/18 at 09:00 Fluocinonide (Lidex 0.05% Cr) 1 applic DAILY TOP ; Start 07/05/18 at 09:00 Insulin Aspart (Novolog Insulin Pen) 12 unit WITH MEALS SC ; Start 07/05/18 at 07:55 Metolazone (Zaroxolyn) 10 mg DAILY PO ; Start 07/05/18 at 09:00 Sevelamer Carbonate (Renvela) 1.6 gm WITH MEALS PO ; Start 07/05/18 at 07:55 Carvedilol (Coreg) 12.5 mg DAILY PO ; Start 07/05/18 at 09:00 Fenofibrate (Tricor) 145 mg DAILY PO ; Start 07/05/18 at 09:00 Tamsulosin HCl (Flomax) 0.4 mg HS PO ; Start 07/05/18 at 21:00 Zolpidem Tartrate (Ambien) 10 mg HS PRN PO INSOMNIA; Start 07/05/18 at 01:00 Pregabalin (Lyrica) 50 mg BID PO ; Start 07/05/18 at 09:00 Furosemide (Lasix) 80 mg BID DIURETICS PO Last administered on 07/05/18at 06: 20; Admin Dose 80 MG; Start 07/05/18 at 06:00 Lactulose (Enulose) 10 gm DAILY PRN PO CONSTIPATION; Start 07/05/18 at 01:00 Benazepril HCl (Lotensin) 10 mg DAILY PO ; Start 07/05/18 at 09:00 Ondansetron HCl (Zofran Tab) 8 mg Q6H PRN PO NAUSEA AND/OR VOMITING; Start 07/05/18 at 01:00 Albuterol/ Ipratropium (Duoneb) 3 ml Q8H RESP THERAPY PRN HHN SHORTNESS OF BREATH; Start 07/05/18 at 01:00 Acetaminophen (Tylenol Tab) 500 mg Q6H PRN PO MILD PAIN(1-3)OR ELEVATED TEMP; Start 07/05/18 at 01:00 Morphine Sulfate (morphine) 2 mg Q3 PRN IV SEVERE PAIN LEVEL 7-10 Last administered on 07/05/18at 01:35; Admin Dose 2 MG; Start 07/05/18 at 01:00 Fluticasone/ Vilanterol (Breo Ellipta 100-25 Mcg Inh) 1 inh DAILY INH ; Start 07/05/18 at 09:00 Fish Oil (Fish Oil) 1,000 mg BID PO ; Start 07/05/18 at 09:00 Non-Formulary Medication 1 ea DAILY PO ; Start 07/05/18 at 09:00; Status UNV Non-Formulary Medication 1 ea HS SC ; Start 07/05/18 at 21:00; Status UNV TAHIRA BUCHANAN Jul 05, 2018 10:02
[2018-07-05] MEDS: TAMSULOSIN (SR) 0.4 MG CAP PO SCH (20:23)
[2018-07-05] MEDS: ATORVASTATIN 80 MG TAB PO SCH (20:24)
[2018-07-05] MEDS ORDERED: SPECIAL NON-STANDARD MEDICATION SC SCH (21:00)
[2018-07-06] VITALS (33 sets, daily range): BP systolic 65–148; BP diastolic 28–104; PULSE 72–107; RESP 14–22
[2018-07-06] MEDS: CYCLOBENZAPRINE 10 MG TAB PO SCH ×4 (00:28→21:48)
[2018-07-06] MEDS: FUROSEMIDE 40 MG TAB PO SCH ×2 (06:16→18:00)
[2018-07-06] MEDS: INSULIN ASPART [NOVOLOG] 3 ML PEN SC SCH ×4 (08:18→21:04)
--- NOTE | 2018-07-06 08:21 | CONS ---
Assessment/Plan Assessment/Plan Assessment/Plan (Daily) 1. CKD, will plan on HD tomm now without clinical chf. 2. Chest pain persists, card eval noted, I apprec no pericardial rub, cath is being considered, echo done ? 3. Left foot burn/cellulitis much improved 4. BP, controlled Consultation Date/Type/Reason Admit Date/Time Jul 04, 2018 at 20:45 Initial Consult Date 07/05/18 Requesting Provider: LAURA AHN MD Date/Time of Note DATE: 07/06/18 TIME: 08:18 Detailed Summary Respiratory: No cough, No shortness of breath Cardiovascular: chest pain (persists with some discomfort in his left neck) Gastrointestinal: no complaints Genitourinary: no complaints Exam/Review of Systems Exam Vitals Vital Signs Date Temp Pulse Resp B/P (MAP) Pulse Ox O2 O2 Flow FiO2 Time Delivery Rate 07/06/18 93 08:08 07/06/18 97.9 22 134/60 97 Nasal 07:24 (84) Cannula 07/05/18 2.0 20:15 Intake and Output 07/05/18 07/05/18 07/06/18 1515:00 23:00 07:00 IntakeIntake Total 720 ml OutputOutput Total 2400 ml BalanceBalance -1680 ml Neck: No jvd Respiratory: No diminished breath sounds Cardiovascular: regular rate and rhythm Gastrointestinal: soft Extremities: edema, other (left foot wound noted (much improved)) Results Result Diagram: 07/05/18 1306 07/05/18 1306 Results 24hrs Laboratory Tests Test 07/05/18 09:34 07/05/18 12:05 07/05/18 13:00 07/05/18 13:06 Bedside Glucose 189 202 Hemoglobin A1c 10.6 H White Blood Count 10.6 # Red Blood Count 4.12 L Hemoglobin 12.4 L Hematocrit 40.5 L Mean Corpuscular 98.3 Volume Mean Corpuscular 30.1 Hemoglobin Mean Corpuscular 30.6 L Hemoglobin Concent Red Cell 14.5 Distribution Width Platelet Count 157 Mean Platelet Volume 11.4 H Immature 1.000 H Granulocytes % Neutrophils % 82.7 H Lymphocytes % 9.2 L Monocytes % 5.7 Eosinophils % 0.8 Basophils % 0.6 Nucleated Red Blood 0.0 Cells % Immature 0.110 H Granulocytes # Neutrophils # 8.7 H Lymphocytes # 1.0 Monocytes # 0.6 Eosinophils # 0.1 Basophils # 0.1 Nucleated Red Blood 0.0 Cells # Sodium Level 134 L Potassium Level 4.6 Chloride Level 90 L Carbon Dioxide Level 29 Anion Gap 15 H Blood Urea Nitrogen 91 H Creatinine 4.04 H Est Glomerular 15 L Filtrat Rate mL/min Glucose Level 186 # Calcium Level 9.1 Test 07/05/18 17:12 07/05/18 19:17 07/06/18 08:08 Bedside Glucose 76 151 338 H Medications Medication Current Medications Amitriptyline HCl (Elavil) 50 mg DAILY PO Last administered on 07/05/18at 09:56; Admin Dose 50 MG; Start 07/05/18 at 09:00 Atorvastatin Calcium (Lipitor) 80 mg QHS PO ; Start 07/05/18 at 21:00 Clopidogrel Bisulfate (plaVIX) 75 mg DAILY PO Last administered on 07/05/18at 10:03; Admin Dose 75 MG; Start 07/05/18 at 09:00 Cyclobenzaprine HCl (Flexeril) 10 mg Q6H PO Last administered on 07/06/18at 06:16; Admin Dose 10 MG; Start 07/05/18 at 00:30 Docusate Sodium (Colace) 250 mg BID PO Last administered on 07/05/18at 09:55; Admin Dose 250 MG; Start 07/05/18 at 09:00 Duloxetine HCl (Cymbalta) 60 mg DAILY PO Last administered on 07/05/18at 09:57; Admin Dose 60 MG; Start 07/05/18 at 09:00 Econazole Nitrate (Spectazole 1% Cr) 15 applic DAILY TOP ; Start 07/05/18 at 09:00 EZETIMIBE (Zetia) 10 mg DAILY PO Last administered on 07/05/18at 10:04; Admin Dose 10 MG; Start 07/05/18 at 09:00 Fluocinonide (Lidex 0.05% Cr) 1 applic DAILY TOP ; Start 07/05/18 at 09:00 Insulin Aspart (Novolog Insulin Pen) 12 unit WITH MEALS SC Last administered on 07/05/18at 12:20; Admin Dose 12 UNIT; Start 07/05/18 at 07:55 Metolazone (Zaroxolyn) 10 mg DAILY PO Last administered on 07/05/18at 10:10; Admin Dose 10 MG; Start 07/05/18 at 09:00 Sevelamer Carbonate (Renvela) 1.6 gm WITH MEALS PO Last administered on 07/05/18at 17:09; Admin Dose 1.6 GM; Start 07/05/18 at 07:55 Carvedilol (Coreg) 12.5 mg DAILY PO ; Start 07/05/18 at 09:00 Fenofibrate (Tricor) 145 mg DAILY PO Last administered on 07/05/18at 10:03; Admin Dose 145 MG; Start 07/05/18 at 09:00 Tamsulosin HCl (Flomax) 0.4 mg HS PO ; Start 07/05/18 at 21:00 Zolpidem Tartrate (Ambien) 10 mg HS PRN PO INSOMNIA; Start 07/05/18 at 01:00 Pregabalin (Lyrica) 50 mg BID PO Last administered on 07/05/18at 10:03; Admin Dose 50 MG; Start 07/05/18 at 09:00 Furosemide (Lasix) 80 mg BID DIURETICS PO Last administered on 07/06/18at 06:16; Admin Dose 80 MG; Start 07/05/18 at 06:00 Lactulose (Enulose) 10 gm DAILY PRN PO CONSTIPATION; Start 07/05/18 at 01:00 Benazepril HCl (Lotensin) 10 mg DAILY PO ; Start 07/05/18 at 09:00 Ondansetron HCl (Zofran Tab) 8 mg Q6H PRN PO NAUSEA AND/OR VOMITING; Start 07/05/18 at 01:00 Albuterol/ Ipratropium (Duoneb) 3 ml Q8H RESP THERAPY PRN HHN SHORTNESS OF BREATH; Start 07/05/18 at 01:00 Acetaminophen (Tylenol Tab) 500 mg Q6H PRN PO MILD PAIN(1-3)OR ELEVATED TEMP; Start 07/05/18 at 01:00 Morphine Sulfate (morphine) 2 mg Q3 PRN IV SEVERE PAIN LEVEL 7-10 Last administ ered on 07/05/18at 22:14; Admin Dose 2 MG; Start 07/05/18 at 01:00 Fluticasone/ Vilanterol (Breo Ellipta 100-25 Mcg Inh) 1 inh DAILY INH Last administered on 07/05/18at 09:54; Admin Dose 1 INH; Start 07/05/18 at 09:00 Fish Oil (Fish Oil) 1,000 mg BID PO Last administered on 07/05/18at 09:55; Admin Dose 1,000 MG; Start 07/05/18 at 09:00 Non-Formulary Medication 1 ea DAILY PO ; Start 07/05/18 at 09:00; Status UNV Non-Formulary Medication 1 ea HS SC ; Start 07/05/18 at 21:00; Status UNV SALBADOR SHIRLEY MD Jul 06, 2018 08:21
[2018-07-06] MEDS: DULOXETINE 30 MG CAP DR PO SCH (08:31)
[2018-07-06] MEDS: EZETIMIBE 10 MG TAB PO SCH (08:31)
[2018-07-06] MEDS: FISH OIL 1,000 MG CAP PO SCH ×2 (08:31→20:26)
[2018-07-06] MEDS: BENAZEPRIL 10 MG TAB PO SCH (08:31)
[2018-07-06] MEDS: METOLAZONE 10 MG TAB PO SCH (08:31)
[2018-07-06] MEDS: CLOPIDOGREL 75 MG TAB PO SCH (08:31)
[2018-07-06] MEDS: DOCUSATE SODIUM 250 MG CAP PO SCH ×2 (08:31→21:48)
[2018-07-06] MEDS: AMITRIPTYLINE 50 MG TAB PO SCH (08:32)
[2018-07-06] MEDS: FENOFIBRATE 145 MG TAB PO SCH (08:32)
[2018-07-06] MEDS: PREGABALIN 50 MG CAP PO SCH ×2 (08:32→20:26)
[2018-07-06] MEDS: SEVELAMER CARBONATE 0.8 GM PKT PO SCH ×3 (08:32→20:26)
[2018-07-06] MEDS: FLUTICASONE/VILANTEROL 100-25 INH SCH (08:33)
[2018-07-06] MEDS: ECONAZOLE TOP SCH (08:34)
[2018-07-06] MEDS: FLUOCINONIDE 0.05% CR 30GM TUBE TOP SCH (08:35)
[2018-07-06] MEDS: morphine 2 MG INJ IV PRN ×2 (08:35→12:49)
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
[2018-07-06] MEDS: SOD FERRIC GLUC COMPLX 125 MG in SOD CHLORIDE 0.9% 100 ML IVPB SCH (12:48)
[2018-07-06] MEDS ORDERED: FENTAnyl 50 MCG/ML VIAL ONE (16:18)
[2018-07-06] MEDS ORDERED: NORepinephrine 8MG/250 ML (PMX 250 ML ONE ×2 (16:49→19:13)
[2018-07-06] MEDS ORDERED: LIDOCAINE 1% (MDV) 20 ML INJ ONE (16:50)
[2018-07-06] MEDS ORDERED: IODIXANOL LOCM 100 ML BTL ONE (16:50)
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
--- NOTE | 2018-07-06 17:04 | RADRPT ---
Echocardiogram Report Patient Name: Helen QUINONES ID: [id number] : 1955 (63y 2m)Study Date: 07/05/2018 10:44:15 AM Gender: MAccession #: [id number] Tech: Allan Perez [facility] Location: 510-A Ref.Physician: TAHIRA BUCHANAN Height(Cm): BSA: Weight(Kg): Quality: AdequateAccount #: Procedures: Echocardiographic Report: Transthoracic echocardiogram with complete 2D, M-Mode, and doppler examination. Indications: Cardiomyopathy, Chest Pain, and Dyspnea. Measurements: 2D/M Mode Doppler Measurement Value Normal Range Measurement Value Normal Range LVIDd 2D 5.9 [ 4.2 - 5.8 ] cm AV Peak [place] 1.2 [ 100.0 - 170.0 ] cm/sec LVIDs 2D 4.8 [ 2.5 - 4.0 ] cm AV Peak PG 5.0 [ 2.0 - 9.0 ] mmHg LVPWd 2D 1.1 [ 0.6 - 1.0 ] cm LVOT Peak [place] 0.7 [ 70.0 - 110.0 ] cm/sec IVSd 2D 1.2 [ 0.6 - 1.0 ] cm LVOT Peak PG 2.0 [ 2.0 - 6.0 ] mmHg AoR Diam 2D 3.2 [ 2.6 - 3.4 ] cm MV E Peak [place] 0.9 [ 60.0 - 130.0 ] cm/sec EDV 2D 171.0 [ 62.0 - 150.0 ] ml MV A Peak [place] 0.7 [ 100.0 - 120.0 ] cm/sec ESV 2D 105.0 [ 21.0 - 61.0 ] ml MV E/A 1.2 [ 0.8 - 1.5 ] ratio EF 2D 38.6 [ 52.0 - 72.0 ] percent MV Decel Time 197 [ 104 - 258 ] msec LA Dimen 2D 3.8 [ 3.0 - 4.0 ] cm Lat E` [place] 0.1 [ 10.0 - 15.0 ] cm/sec Lateral E/E` 14.5 [ 1.0 - 2.0 ] ratio MV E/A 1.2 [ 0.8 - 1.5 ] ratio RA Pressure 8.0 mmHg Findings: Left Ventricle: Normal left ventricular cavity size. Normal left ventricular wall thickness. Moderate global left ventricular systolic dysfunction. Ejection fraction is visually estimated at 35-40 %. Tissue Doppler/Mitral Doppler indices are consistent with pseudonormalization with mildly elevated left atrial pressure (Stage II diastolic dysfunction). Akinesis of the basal inferolateral and inferior durbin with otherwise global hypokinesis. Right Ventricle: Normal right ventricular size. Normal right ventricular systolic function. Linear artifact in right ventricle suggestive of catheter, pacer lead, or ICD lead. Left Atrium: There is moderate enlargement of left atrium. Right Atrium: There is mild enlargement of right atrium. Mitral Valve: Mild mitral annular calcification. Trace mitral regurgitation. Aortic Valve: Aortic sclerosis without significant stenosis. Aortic cusps appear mildly calcified. No aortic regurgitation. Tricuspid Valve: Normal appearance of the tricuspid valve. Unable to obtain RVSP due to minimal presence of tricuspid regurgitation. There is trace tricuspid regurgitation. Pericardium: Small posterior pericardial effusion. Left pleural effusion seen. Aorta: Normal aortic root. IVC: Dilated IVC with respiratory collapse consistent with elevated right atrial pressure. Conclusions: Normal left ventricular cavity size. Normal left ventricular wall thickness. Moderate global left ventricular systolic dysfunction. Ejection fraction is visually estimated at 35-40 %. Tissue Doppler/Mitral Doppler indices are consistent with pseudonormalization with mildly elevated left atrial pressure (Stage II diastolic dysfunction). Akinesis of the basal inferolateral and inferior durbin with otherwise global hypokinesis. Aortic sclerosis without significant stenosis. Aortic cusps appear mildly calcified. No aortic regurgitation. Unable to obtain RVSP due to minimal presence of tricuspid regurgitation.Dilated IVC with respiratory collapse consistent with elevated right atrial pressure. Electronically Signed By: Tahira Buchanan 2018-07-06 17:04:31 PDT
--- NOTE | 2018-07-06 17:16 | CONS ---
Assessment/Plan Assessment/Plan Hospital Course (Demo Recall) Unstable angina/CAD: complex three vessel CAD with ostial LAD, ostial OM, and occluded prox RCA [employer]ARE[employer] ADMIN. In setting of DM, cardiomyopathy, and three vessel CAD, eval for CABG is appropriate. Neck pain: may be musculoskeletal Chronic systolic heart failure: currently euvolemic Ischemic cardiomyopathy EF 20% prior report but echo here shows EF 35-40% s/p ICD for secondary prevention Paroxysmal atrial fibrillation Severe PAD s/p prior bypass: occluded bypass on cath 07/06/18 s/p right transmetatarsal amputation ESRD on HD Uncontrolled DM HTN COPD Burn wound/cellulitis depression Likely noncompliance -CABG eval -start ASA -d/c plavix -continue to hold Eliquis -decrease to coreg 6.25mg BID with holding parameters -d/c benazepril 10mg -lasix 80mg PO BID -lipitor 80mg, zetia -HD per nephrology Consultation Date/Type/Reason Admit Date/Time Jul 04, 2018 at 20:45 Initial Consult Date 07/05/18 Type of Consult Cardiology Requesting Provider: LAURA AHN MD Date/Time of Note DATE: 07/06/18 TIME: 17:13 24 HR Interval Summary Free Text/Dictation s/p cardiac cath today with details as noted. No chest pain. Still with left neck pain. BP low today even before the case. Exam/Review of Systems Vital Signs Vitals Vital Signs Date Temp Pulse Resp B/P (MAP) Pulse Ox O2 O2 Flow FiO2 Time Delivery Rate 07/06/18 86 13:36 07/06/18 98.2 20 124/58 97 Nasal 11:26 (80) Cannula 07/05/18 2.0 20:15 Intake and Output 07/05/18 07/05/18 07/06/18 1414:59 22:59 06:59 IntakeIntake Total 720 ml OutputOutput Total 2400 ml BalanceBalance -1680 ml Exam Constitutional: alert, oriented Psych: no complaints, nl mood/affect Head: normocephalic, atraumatic Neck: No jvd Respiratory: clear to auscultation; No crackles/rales Cardiovascular: regular rate and rhythm, systolic murmur (2/6 [place]); No edema Gastrointestinal: soft, non-tender; No distended Neurological: nl mental status, nl speech Labs Result Diagram: 07/06/18 0740 07/06/18 0740 Results 24hrs Laboratory Tests Test 07/05/18 19:17 07/06/18 07:40 07/06/18 08:08 07/06/18 12:03 Bedside Glucose 151 338 H 348 H White Blood Count 11.8 H Red Blood Count 3.96 L Hemoglobin 11.7 L Hematocrit 38.8 L Mean Corpuscular 98.0 Volume Mean Corpuscular 29.5 Hemoglobin Mean Corpuscular 30.2 L Hemoglobin Concent Red Cell 14.6 H Distribution Width Platelet Count 203 # Mean Platelet Volume 11.6 H Immature 0.800 H Granulocytes % Neutrophils % 81.0 H Lymphocytes % 9.5 L Monocytes % 7.4 Eosinophils % 0.8 Basophils % 0.5 Nucleated Red Blood 0.0 Cells % Immature 0.100 H Granulocytes # Neutrophils # 9.5 H Lymphocytes # 1.1 Monocytes # 0.9 Eosinophils # 0.1 Basophils # 0.1 Nucleated Red Blood 0.0 Cells # Sodium Level 134 L Potassium Level 4.9 Chloride Level 89 L Carbon Dioxide Level 32 H Anion Gap 13 Blood Urea Nitrogen 60 #H Creatinine 3.88 H Est Glomerular 16 L Filtrat Rate mL/min Glucose Level 360 #H Calcium Level 9.3 Phosphorus Level 4.8 Iron Level 25 L Total Iron Binding 298 Capacity Percent Iron 8 L Saturation Ferritin 1420.0 H Medications Medications Current Medications Amitriptyline HCl (Elavil) 50 mg DAILY PO Last administered on 07/06/18at 08:32; Admin Dose 50 MG; Start 07/05/18 at 09:00 Atorvastatin Calcium (Lipitor) 80 mg QHS PO ; Start 07/05/18 at 21:00 Clopidogrel Bisulfate (plaVIX) 75 mg DAILY PO Last administered on 07/06/18at 08:31; Admin Dose 75 MG; Start 07/05/18 at 09:00 Cyclobenzaprine HCl (Flexeril) 10 mg Q6H PO Last administered on 07/06/18at 06:16; Admin Dose 10 MG; Start 07/05/18 at 00:30 Docusate Sodium (Colace) 250 mg BID PO Last administered on 07/06/18at 08:31; Admin Dose 250 MG; Start 07/05/18 at 09:00 Duloxetine HCl (Cymbalta) 60 mg DAILY PO Last administered on 07/06/18 08:31; Admin Dose 60 MG; Start 07/05/18 at 09:00 Econazole Nitrate (Spectazole 1% Cr) 15 applic DAILY TOP Last administered on 07/06/18 08:34; Admin Dose 15 APPLIC; Start 07/05/18 at 09:00 EZETIMIBE (Zetia) 10 mg DAILY PO Last administered on 07/06/18 08:31; Admin Dose 10 MG; Start 07/05/18 at 09:00 Fluocinonide (Lidex 0.05% Cr) 1 applic DAILY TOP Last administered on 07/06/18 08:35; Admin Dose 1 APPLIC; Start 07/05/18 at 09:00 Insulin Aspart (Novolog Insulin Pen) 12 unit WITH MEALS SC Last administered on 07/06/18 12:06; Admin Dose 12 UNIT; Start 07/05/18 at 07:55 Metolazone (Zaroxolyn) 10 mg DAILY PO Last administered on 07/06/18 08:31; Admin Dose 10 MG; Start 07/05/18 at 09:00 Sevelamer Carbonate (Renvela) 1.6 gm WITH MEALS PO Last administered on 9at 08:32; Admin Dose 1.6 GM; Start 07/05/18 at 07:55 Carvedilol (Coreg) 12.5 mg DAILY PO Last administered on 07/06/18 08:32; Admin Dose 12.5 MG; Start 07/05/18 at 09:00 Fenofibrate (Tricor) 145 mg DAILY PO Last administered on 07/06/18 08:32; Admin Dose 145 MG; Start 07/05/18 at 09:00 Tamsulosin HCl (Flomax) 0.4 mg HS PO ; Start 07/05/18 at 21:00 Zolpidem Tartrate (Ambien) 10 mg HS PRN PO INSOMNIA; Start 07/05/18 at 01:00 Pregabalin (Lyrica) 50 mg BID PO Last administered on 07/06/18 08:32; Admin Dose 50 MG; Start 07/05/18 at 09:00 Furosemide (Lasix) 80 mg BID DIURETICS PO Last administered on 07/06/18 06:16; Admin Dose 80 MG; Start 07/05/18 at 06:00 Lactulose (Enulose) 10 gm DAILY PRN PO CONSTIPATION; Start 07/05/18 at 01:00 Benazepril HCl (Lotensin) 10 mg DAILY PO Last administered on 07/06/18at 08:31; Admin Dose 10 MG; Start 07/05/18 at 09:00 Ondansetron HCl (Zofran Tab) 8 mg Q6H PRN PO NAUSEA AND/OR VOMITING; Start 07/05/18 at 01:00 Albuterol/ Ipratropium (Duoneb) 3 ml Q8H RESP THERAPY PRN HHN SHORTNESS OF BREATH; Start 07/05/18 at 01:00 Acetaminophen (Tylenol Tab) 500 mg Q6H PRN PO MILD PAIN(1-3)OR ELEVATED TEMP; Start 07/05/18 at 01:00 Morphine Sulfate (morphine) 2 mg Q3 PRN IV SEVERE PAIN LEVEL 7-10 Last administered on 07/06/18at 12:49; Admin Dose 2 MG; Start 07/05/18 at 01:00 Fluticasone/ Vilanterol (Breo Ellipta 100-25 Mcg Inh) 1 inh DAILY INH Last ad ministered on 07/06/18at 08:33; Admin Dose 1 INH; Start 07/05/18 at 09:00 Fish Oil (Fish Oil) 1,000 mg BID PO Last administered on 07/06/18 08:31; Admin Dose 1,000 MG; Start 07/05/18 at 09:00 Non-Formulary Medication 1 ea DAILY PO ; Start 07/05/18 at 09:00; Status UNV Non-Formulary Medication 1 ea HS SC ; Start 07/05/18 at 21:00; Status UNV Ferric Sodium Gluconate Complex 125 mg/Sodium Chloride 100 ml @ 100 mls/hr DAILY@1300 IVPB Last administered on 07/06/18at 12:48; Admin Dose 100 MLS/HR; Start 07/06/18 at 13:00; Stop 07/08/18 at 13:59 TAHIRA BUCHANAN Jul 06, 2018 17:16
--- NOTE | 2018-07-06 18:15 | CONS ---
Consultation Date/Type/Reason Admit Date/Time Jul 04, 2018 at 20:45 Initial Consult Date 07/05/18 Requesting Provider: LAURA AHN MD Date/Time of Note DATE: 07/06/18 TIME: 18:15 Exam/Review of Systems Exam Vitals Vital Signs Date Temp Pulse Resp B/P (MAP) Pulse Ox O2 O2 Flow FiO2 Time Delivery Rate 07/06/18 73 17:53 07/06/18 98.2 20 124/58 97 Nasal 11:26 (80) Cannula 07/05/18 2.0 20:15 Intake and Output 07/05/18 07/05/18 07/06/18 1515:00 23:00 07:00 IntakeIntake Total 720 ml OutputOutput Total 2400 ml BalanceBalance -1680 ml Results Result Diagram: 07/06/18 0740 07/06/18 0740 Results 24hrs Laboratory Tests Test 07/05/18 19:17 07/06/18 07:40 07/06/18 08:08 07/06/18 12:03 Bedside Glucose 151 338 H 348 H White Blood Count 11.8 H Red Blood Count 3.96 L Hemoglobin 11.7 L Hematocrit 38.8 L Mean Corpuscular 98.0 Volume Mean Corpuscular 29.5 Hemoglobin Mean Corpuscular 30.2 L Hemoglobin Concent Red Cell 14.6 H Distribution Width Platelet Count 203 # Mean Platelet Volume 11.6 H Immature 0.800 H Granulocytes % Neutrophils % 81.0 H Lymphocytes % 9.5 L Monocytes % 7.4 Eosinophils % 0.8 Basophils % 0.5 Nucleated Red Blood 0.0 Cells % Immature 0.100 H Granulocytes # Neutrophils # 9.5 H Lymphocytes # 1.1 Monocytes # 0.9 Eosinophils # 0.1 Basophils # 0.1 Nucleated Red Blood 0.0 Cells # Sodium Level 134 L Potassium Level 4.9 Chloride Level 89 L Carbon Dioxide Level 32 H Anion Gap 13 Blood Urea Nitrogen 60 #H Creatinine 3.88 H Est Glomerular 16 L Filtrat Rate mL/min Glucose Level 360 #H Calcium Level 9.3 Phosphorus Level 4.8 Iron Level 25 L Total Iron Binding 298 Capacity Percent Iron 8 L Saturation Ferritin 1420.0 H Medications Medication Current Medications Amitriptyline HCl (Elavil) 50 mg DAILY PO Last administered on 07/06/18at 08:32; Admin Dose 50 MG; Start 07/05/18 at 09:00 Atorvastatin Calcium (Lipitor) 80 mg QHS PO ; Start 07/05/18 at 21:00 Cyclobenzaprine HCl (Flexeril) 10 mg Q6H PO Last administered on 07/06/18at 06:16; Admin Dose 10 MG; Start 07/05/18 at 00:30 Docusate Sodium (Colace) 250 mg BID PO Last administered on 07/06/18 08:31; Admin Dose 250 MG; Start 07/05/18 at 09:00 Duloxetine HCl (Cymbalta) 60 mg DAILY PO Last administered on 07/06/18 08:31; Admin Dose 60 MG; Start 07/05/18 at 09:00 Econazole Nitrate (Spectazole 1% Cr) 15 applic DAILY TOP Last administered on 07/06/18 08:34; Admin Dose 15 APPLIC; Start 07/05/18 at 09:00 EZETIMIBE (Zetia) 10 mg DAILY PO Last administered on 07/06/18 08:31; Admin Dose 10 MG; Start 07/05/18 at 09:00 Fluocinonide (Lidex 0.05% Cr) 1 applic DAILY TOP Last administered on 07/06/18at 08:35; Admin Dose 1 APPLIC; Start 07/05/18 at 09:00 Insulin Aspart (Novolog Insulin Pen) 12 unit WITH MEALS SC Last administered on 07/06/18at 12:06; Admin Dose 12 UNIT; Start 07/05/18 at 07:55 Metolazone (Zaroxolyn) 10 mg DAILY PO Last administered on 07/06/18 08:31; Admin Dose 10 MG; Start 07/05/18 at 09:00 Sevelamer Carbonate (Renvela) 1.6 gm WITH MEALS PO Last administered on 07/06/18 08:32; Admin Dose 1.6 GM; Start 07/05/18 at 07:55 Fenofibrate (Tricor) 145 mg DAILY PO Last administered on 07/06/18 08:32; A dmin Dose 145 MG; Start 07/05/18 at 09:00 Tamsulosin HCl (Flomax) 0.4 mg HS PO ; Start 07/05/18 at 21:00 Zolpidem Tartrate (Ambien) 10 mg HS PRN PO INSOMNIA; Start 07/05/18 at 01:00 Pregabalin (Lyrica) 50 mg BID PO Last administered on 07/06/18at 08:32; Admin Dose 50 MG; Start 07/05/18 at 09:00 Furosemide (Lasix) 80 mg BID DIURETICS PO Last administered on 07/06/18at 06:16; Admin Dose 80 MG; Start 07/05/18 at 06:00 Lactulose (Enulose) 10 gm DAILY PRN PO CONSTIPATION; Start 07/05/18 at 01:00 Ondansetron HCl (Zofran Tab) 8 mg Q6H PRN PO NAUSEA AND/OR VOMITING; Start 07/05/18 at 01:00 Albuterol/ Ipratropium (Duoneb) 3 ml Q8H RESP THERAPY PRN HHN SHORTNESS OF BREATH; Start 07/05/18 at 01:00 Acetaminophen (Tylenol Tab) 500 mg Q6H PRN PO MILD PAIN(1-3)OR ELEVATED TEMP; Start 07/05/18 at 01:00 Morphine Sulfate (morphine) 2 mg Q3 PRN IV SEVERE PAIN LEVEL 7-10 Last administered on 07/06/18at 12:49; Admin Dose 2 MG; Start 07/05/18 at 01:00 Fluticasone/ Vilanterol (Breo Ellipta 100-25 Mcg Inh) 1 inh DAILY INH Last administered on 07/06/18at 08:33; Admin Dose 1 INH; Start 07/05/18 at 09:00 Fish Oil (Fish Oil) 1,000 mg BID PO Last administered on 07/06/18 08:31; Admin Dose 1,000 MG; Start 07/05/18 at 09:00 Non-Formulary Medication 1 ea DAILY PO ; Start 07/05/18 at 09:00; Status UNV Non-Formulary Medication 1 ea HS SC ; Start 07/05/18 at 21:00; Status UNV Ferric Sodium Gluconate Complex 125 mg/Sodium Chloride 100 ml @ 100 mls/hr DAILY@1300 IVPB Last administered on 07/06/18at 12:48; Admin Dose 100 MLS/HR; Start 07/06/18 at 13:00; Stop 07/08/18 at 13:59 Carvedilol (Coreg) 6.25 mg BID PO ; Start 07/06/18 at 21:00 Aspirin (Aspirin) 81 mg DAILY PO ; Start 07/07/18 at 09:00 Norepinephrine 250 ml @ 1.875 mls/ hr TITRATE IV ; Start 07/06/18 at 18:30; Status UNV EVA PERRY MD Jul 06, 2018 18:15
--- NOTE | 2018-07-06 18:25 | CONS ---
Assessment/Plan Assessment/Plan Hospital Course (Demo Recall) 1. Cellulitis left foot 2. Angina 3. CAD 4. hx of right TMA 5. multiple medical probmes as outline per hpi R: Cefazolin; potentially short course f/u cardiac cath will continue to follow closely with you ty Consultation Date/Type/Reason Admit Date/Time Jul 04, 2018 at 20:45 Date of Consultation: Jul 06, 2018 Type of Consult ID Reason for Consultation ABX RECS; CELLULITIS Requesting Provider: LAURA AHN MD Date/Time of Note DATE: 07/06/18 TIME: 12:00 Hx of Present Illness 63 yo male with pmh of CAD, DM, diabetic neuropathy, right TMA, CKD, vascular disease, revascularizations,syncopal episodes,chf, multiple medical problems, admitted with persistent cp despite nitroglycerin. He was noted to have a wound on left foot. He has been receiving Vanco/Zosyn. He is scheduled for a cardiac cath today. pain in neck, left side. otherwise no other major complaints Past Medical History Medical History: angina, colitis, congestive heart failure, coronary artery disease, diabetes, GERD, GI bleed, high cholesterol, hypertension, pancreatitis, renal disease, urinary tract infection Home Meds Reported Medications Econazole Nitrate (Econazole Nitrate) 15 Gm Cream..g., 15 GM TP 06/12/18 Ezetimibe* (Zetia*) 10 Mg Tablet, 10 MG PO, TAB 06/12/18 Ondansetron Hcl* (Ondansetron Hcl*) 8 Mg Tablet, 8 MG PO, TAB 06/12/18 Fluocinonide* (Fluocinonide* Cream) 0.1% - 120 Gm Cream..g., 1 APPLIC TOP, TUB 06/12/18 Ipratropium [place]* (Atrovent HFA*) 12.9 Gm Aer.w.adap, 2 PUFF INHALATION for SHORTNESS OF BREATH, #1 INHALER 06/12/18 Metolazone* (Metolazone*) 10 Mg Tablet, 10 MG PO, TAB 06/12/18 Promethazine/Phenyleph/Codeine (Bgjamfjknmki-GY-Uiukqwg Syrup) 118 Ml Syrup, 118 ML PO 06/12/18 Amitriptyline Hcl* (Amitriptyline Hcl*) 50 Mg Tablet, 50 MG PO, #30 TAB 06/12/18 Duloxetine Hcl* (Duloxetine Hcl*) 60 Mg Capsule.dr, 60 MG PO, #30 CAP 06/12/18 Icosapent Ethyl (VASCEPA) 1 Gm Capsule, 1 GM PO, CAP 06/12/18 Benazepril Hcl* (Benazepril Hcl*) 10 Mg Tablet, 10 MG PO, #60 TAB 06/12/18 Budesonide-Formoterol Fumarate* (Symbicort*) 80-4.5 Mcg Hfa.aer.ad, 2 PUFF INHALATION, BOTTLE 06/12/18 Lactulose* (Lactulose*) 10 Gm/15 Ml Solution, 10 GM PO, ML 06/12/18 Furosemide* (Furosemide*) 80 Mg Tablet, 80 MG PO BID, #60 TAB 04/19/18 Sevelamer Carbonate* (Renvela*) 800 Mg Tablet, 1.6 GM PO WITH MEALS, TAB 03/05/18 Metoprolol Succinate* (Toprol XL*) 50 Mg Tab.er.24h, 50 MG PO DAILY, #30 TAB 03/05/18 Insulin Degludec (Tresiba Flextouch U-100) 100 Unit/1 Ml Insuln.pen, 40 UNIT SQ QHS 03/05/18 Insulin Aspart* (Novolog Insulin Pen*) 100 Unit/Ml Soln, 12 UNIT SC WITH MEALS, EA 03/05/18 Esomeprazole Mag Trihydrate (Nexium) 40 Mg Capsule.dr, 40 MG PO DAILY, #30 CAP 03/05/18 Docusate Sodium* (Colace*) 250 Mg Capsule, 250 MG PO BID, #60 CAP 03/05/18 Cyclobenzaprine Hcl* (Cyclobenzaprine Hcl*) 10 Mg Tablet, 10 MG PO Q6H, #60 TAB 03/05/18 Clopidogrel Bisulfate (Clopidogrel) 75 Mg Tablet, 75 MG PO DAILY, #30 TAB 03/05/18 Atorvastatin* (Atorvastatin*) 80 Mg Tablet, 80 MG PO QHS, #30 TAB 03/05/18 Aspirin* (Aspirin* EC) 81 Mg Tablet.dr, 81 MG PO DAILY, TAB 03/05/18 Apixaban* (Eliquis*) 2.5 Mg Tablet, 2.5 MG PO BID, TAB 03/05/18 Discontinued Reported Medications Fluocinonide* (Fluocinonide* Cream) 0.1% - 120 Gm Cream..g., 1 APPLIC TOP, TUB 06/12/18 Pregabalin* (Lyrica*) 50 Mg Capsule, 50 MG PO BID, CAP 03/05/18 Omeprazole* (Omeprazole*) 40 Mg Capsule.dr, 40 MG PO DAILY, #30 CAP 03/05/18 Zolpidem Tartrate* (Ambien*) 10 Mg Tablet, 10 MG PO QHS PRN for INSOMNIA, TAB 03/05/18 Tamsulosin Hcl* (Tamsulosin Hcl*) 0.4 Mg Cap.er.24h, 0.4 MG PO HS, CAP 03/05/18 Fenofibrate Nanocrystallized* (Fenofibrate*) 145 Mg Tablet, 145 MG PO DAILY, TAB 03/05/18 Duloxetine Hcl* (Cymbalta*) 60 Mg Capsule.dr, 60 MG PO DAILY, CAP 03/05/18 Carvedilol* (Carvedilol*) 12.5 Mg Tablet, 12.5 MG PO DAILY, #60 TAB 03/05/18 Medications Current Medications Amitriptyline HCl (Elavil) 50 mg DAILY PO Last administered on 07/06/18at 08:32; Admin Dose 50 MG; Start 07/05/18 at 09:00 Atorvastatin Calcium (Lipitor) 80 mg QHS PO ; Start 07/05/18 at 21:00 Cyclobenzaprine HCl (Flexeril) 10 mg Q6H PO Last administered on 07/06/18at 06:16; Admin Dose 10 MG; Start 07/05/18 at 00:30 Docusate Sodium (Colace) 250 mg BID PO Last administered on 07/06/18at 08:31; Admin Dose 250 MG; Start 07/05/18 at 09:00 Duloxetine HCl (Cymbalta) 60 mg DAILY PO Last administered on 07/06/18at 08:31; Admin Dose 60 MG; Start 07/05/18 at 09:00 Econazole Nitrate (Spectazole 1% Cr) 15 applic DAILY TOP Last administered on 07/06/18at 08:34; Admin Dose 15 APPLIC; Start 07/05/18 at 09:00 EZETIMIBE (Zetia) 10 mg DAILY PO Last administered on 07/06/18at 08:31; Admin Dose 10 MG; Start 07/05/18 at 09:00 Fluocinonide (Lidex 0.05% Cr) 1 applic DAILY TOP Last administered on 07/06/18at 08:35; Admin Dose 1 APPLIC; Start 07/05/18 at 09:00 Insulin Aspart (Novolog Insulin Pen) 12 unit WITH MEALS SC Last administered on 07/06/18at 12:06; Admin Dose 12 UNIT; Start 07/05/18 at 07:55 Metolazone (Zaroxolyn) 10 mg DAILY PO Last administered on 07/06/18at 08:31; Admin Dose 10 MG; Start 07/05/18 at 09:00 Sevelamer Carbonate (Renvela) 1.6 gm WITH MEALS PO Last administered on 07/06/18 08:32; Admin Dose 1.6 GM; Start 07/05/18 at 07:55 Fenofibrate (Tricor) 145 mg DAILY PO Last administered on 07/06/18at 08:32; Admin Dose 145 MG; Start 07/05/18 at 09:00 Tamsulosin HCl (Flomax) 0.4 mg HS PO ; Start 07/05/18 at 21:00 Zolpidem Tartrate (Ambien) 10 mg HS PRN PO INSOMNIA; Start 07/05/18 at 01:00 Pregabalin (Lyrica) 50 mg BID PO Last administered on 07/06/18at 08:32; Admin Dose 50 MG; Start 07/05/18 at 09:00 Furosemide (Lasix) 80 mg BID DIURETICS PO Last administered on 07/06/18at 06:1 6; Admin Dose 80 MG; Start 07/05/18 at 06:00 Lactulose (Enulose) 10 gm DAILY PRN PO CONSTIPATION; Start 07/05/18 at 01:00 Ondansetron HCl (Zofran Tab) 8 mg Q6H PRN PO NAUSEA AND/OR VOMITING; Start 07/05/18 at 01:00 Albuterol/ Ipratropium (Duoneb) 3 ml Q8H RESP THERAPY PRN HHN SHORTNESS OF BREATH; Start 07/05/18 at 01:00 Acetaminophen (Tylenol Tab) 500 mg Q6H PRN PO MILD PAIN(1-3)OR ELEVATED TEMP; Start 07/05/18 at 01:00 Morphine Sulfate (morphine) 2 mg Q3 PRN IV SEVERE PAIN LEVEL 7-10 Last administered on 07/06/18at 12:49; Admin Dose 2 MG; Start 07/05/18 at 01:00 Fluticasone/ Vilanterol (Breo Ellipta 100-25 Mcg Inh) 1 inh DAILY INH Last administered on 07/06/18 08:33; Admin Dose 1 INH; Start 07/05/18 at 09:00 Fish Oil (Fish Oil) 1,000 mg BID PO Last administered on 07/06/18at 08:31; Admin Dose 1,000 MG; Start 07/05/18 at 09:00 Non-Formulary Medication 1 ea DAILY PO ; Start 07/05/18 at 09:00; Status UNV Non-Formulary Medication 1 ea HS SC ; Start 07/05/18 at 21:00; Status UNV Ferric Sodium Gluconate Complex 125 mg/Sodium Chloride 100 ml @ 100 mls/hr DAILY@1300 IVPB Last administered on 07/06/18at 12:48; Admin Dose 100 MLS/HR; Start 07/06/18 at 13:00; Stop 07/08/18 at 13:59 Carvedilol (Coreg) 6.25 mg BID PO ; Start 07/06/18 at 21:00 Aspirin (Aspirin) 81 mg DAILY PO ; Start 07/07/18 at 09:00 Norepinephrine 250 ml @ 1.875 mls/ hr TITRATE IV ; Start 07/06/18 at 18:30; Status UNV Allergies: Coded Allergies: No Known Allergies (Unverified Allergy, Mild, 07/04/18) Past Surgical History Past Surgical Hx: noncontributory, coronary bypass surgery, endoscopy, other Social History Alcohol Use: none Smoking Status: Former smoker Drug Use: none, other (High probability of being addicted to the opioids.) Exam/Review of Systems Exam Vitals Vital Signs Date Temp Pulse Resp B/P (MAP) Pulse Ox O2 O2 Flow FiO2 Time Delivery Rate 07/06/18 73 17:53 07/06/18 98.2 20 124/58 97 Nasal 11:26 (80) Cannula 07/05/18 2.0 20:15 Intake and Output 07/05/18 07/05/18 07/06/18 1515:00 23:00 07:00 IntakeIntake Total 720 ml OutputOutput Total 2400 ml BalanceBalance -1680 ml Constitutional: alert, oriented, well developed Psych: nl mood/affect, anxiety Head: normocephalic, atraumatic Eyes: EOMI Respiratory: clear to auscultation Cardiovascular: regular rate and rhythm Gastrointestinal: soft 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 Skin: other (CELLULITIC CHANGES RIGHT FOOT WITH OPEN WOUND, NO PURULENT DRAIONAGE NOTED) Results Result Diagram: 07/06/18 0740 07/06/18 0740 Results 24hrs Laboratory Tests Test 07/05/18 19:17 07/06/18 07:40 07/06/18 08:08 07/06/18 12:03 Bedside Glucose 151 338 H 348 H White Blood Count 11.8 H Red Blood Count 3.96 L Hemoglobin 11.7 L Hematocrit 38.8 L Mean Corpuscular 98.0 Volume Mean Corpuscular 29.5 Hemoglobin Mean Corpuscular 30.2 L Hemoglobin Concent Red Cell 14.6 H Distribution Width Platelet Count 203 # Mean Platelet Volume 11.6 H Immature 0.800 H Granulocytes % Neutrophils % 81.0 H Lymphocytes % 9.5 L Monocytes % 7.4 Eosinophils % 0.8 Basophils % 0.5 Nucleated Red Blood 0.0 Cells % Immature 0.100 H Granulocytes # Neutrophils # 9.5 H Lymphocytes # 1.1 Monocytes # 0.9 Eosinophils # 0.1 Basophils # 0.1 Nucleated Red Blood 0.0 Cells # Sodium Level 134 L Potassium Level 4.9 Chloride Level 89 L Carbon Dioxide Level 32 H Anion Gap 13 Blood Urea Nitrogen 60 #H Creatinine 3.88 H Est Glomerular 16 L Filtrat Rate mL/min Glucose Level 360 #H Calcium Level 9.3 Phosphorus Level 4.8 Iron Level 25 L Total Iron Binding 298 Capacity Percent Iron 8 L Saturation Ferritin 1420.0 H Medications Medication Current Medications Amitriptyline HCl (Elavil) 50 mg DAILY PO Last administered on 07/06/18at 08:32; Admin Dose 50 MG; Start 07/05/18 at 09:00 Atorvastatin Calcium (Lipitor) 80 mg QHS PO ; Start 07/05/18 at 21:00 Cyclobenzaprine HCl (Flexeril) 10 mg Q6H PO Last administered on 07/06/18at 06:16; Admin Dose 10 MG; Start 07/05/18 at 00:30 Docusate Sodium (Colace) 250 mg BID PO Last administered on 07/06/18 08:31; Ad min Dose 250 MG; Start 07/05/18 at 09:00 Duloxetine HCl (Cymbalta) 60 mg DAILY PO Last administered on 07/06/18 08:31; Admin Dose 60 MG; Start 07/05/18 at 09:00 Econazole Nitrate (Spectazole 1% Cr) 15 applic DAILY TOP Last administered on 07/06/18 08:34; Admin Dose 15 APPLIC; Start 07/05/18 at 09:00 EZETIMIBE (Zetia) 10 mg DAILY PO Last administered on 07/06/18 08:31; Admin Dose 10 MG; Start 07/05/18 at 09:00 Fluocinonide (Lidex 0.05% Cr) 1 applic DAILY TOP Last administered on 07/06/18 08:35; Admin Dose 1 APPLIC; Start 07/05/18 at 09:00 Insulin Aspart (Novolog Insulin Pen) 12 unit WITH MEALS SC Last administered on 07/06/18 12:06; Admin Dose 12 UNIT; Start 07/05/18 at 07:55 Metolazone (Zaroxolyn) 10 mg DAILY PO Last administered on 07/06/18 08:31; Admin Dose 10 MG; Start 07/05/18 at 09:00 Sevelamer Carbonate (Renvela) 1.6 gm WITH MEALS PO Last administered on 07/06/18 08:32; Admin Dose 1.6 GM; Start 07/05/18 at 07:55 Fenofibrate (Tricor) 145 mg DAILY PO Last administered on 07/06/18 08:32; Admin Dose 145 MG; Start 07/05/18 at 09:00 Tamsulosin HCl (Flomax) 0.4 mg HS PO ; Start 07/05/18 at 21:00 Zolpidem Tartrate (Ambien) 10 mg HS PRN PO INSOMNIA; Start 07/05/18 at 01:00 Pregabalin (Lyrica) 50 mg BID PO Last administered on 07/06/18 08:32; Admin Dose 50 MG; Start 07/05/18 at 09:00 Furosemide (Lasix) 80 mg BID DIURETICS PO Last administered on 07/06/18 06: 16; Admin Dose 80 MG; Start 07/05/18 at 06:00 Lactulose (Enulose) 10 gm DAILY PRN PO CONSTIPATION; Start 07/05/18 at 01:00 Ondansetron HCl (Zofran Tab) 8 mg Q6H PRN PO NAUSEA AND/OR VOMITING; Start 07/05/18 at 01:00 Albuterol/ Ipratropium (Duoneb) 3 ml Q8H RESP THERAPY PRN HHN SHORTNESS OF BREATH; Start 07/05/18 at 01:00 Acetaminophen (Tylenol Tab) 500 mg Q6H PRN PO MILD PAIN(1-3)OR ELEVATED TEMP; Start 07/05/18 at 01:00 Morphine Sulfate (morphine) 2 mg Q3 PRN IV SEVERE PAIN LEVEL 7-10 Last administered on 07/06/18at 12:49; Admin Dose 2 MG; Start 07/05/18 at 01:00 Fluticasone/ Vilanterol (Breo Ellipta 100-25 Mcg Inh) 1 inh DAILY INH Last administered on 07/06/18 08:33; Admin Dose 1 INH; Start 07/05/18 at 09:00 Fish Oil (Fish Oil) 1,000 mg BID PO Last administered on 07/06/18 08:31; Admin Dose 1,000 MG; Start 07/05/18 at 09:00 Non-Formulary Medication 1 ea DAILY PO ; Start 07/05/18 at 09:00; Status UNV Non-Formulary Medication 1 ea HS SC ; Start 07/05/18 at 21:00; Status UNV Ferric Sodium Gluconate Complex 125 mg/Sodium Chloride 100 ml @ 100 mls/hr DAILY@1300 IVPB Last administered on 07/06/18at 12:48; Admin Dose 100 MLS/HR; Start 07/06/18 at 13:00; Stop 07/08/18 at 13:59 Carvedilol (Coreg) 6.25 mg BID PO ; Start 07/06/18 at 21:00 Aspirin (Aspirin) 81 mg DAILY PO ; Start 07/07/18 at 09:00 Norepinephrine 250 ml @ 1.875 mls/ hr TITRATE IV ; Start 07/06/18 at 18:30; [facility] UNV EVA PERRY MD Jul 06, 2018 18:25
[2018-07-06] MEDS ORDERED: NORepinephrine 8MG/250 ML (PMX 250 ML IV SCH (18:30)
--- NOTE | 2018-07-06 19:38 | QN ---
Documentation Comment Central Line Placement by me: Patient consented, sterilely draped, full prep, gown, glove, mask, time out performed. Anesthesia: 1% lidocaine locally Location: Right IJ Device: Multiple lumen Technique: Seldinger technique. Secured with suture. Results: Venous return from all ports with easy saline flush. No c omplications. Guide wire retrieved and disposed of. ED Ultrasound: Central line placed by me using concurrent ultrasound guidance. Unfortunately putting function on the ultrasound machine is not working at this time. X-ray pending. TERRANCE ARIAS MD Jul 06, 2018 19:38
[2018-07-06] MEDS: ATORVASTATIN 80 MG TAB PO SCH (20:27)
[2018-07-06] MEDS: TAMSULOSIN (SR) 0.4 MG CAP PO SCH (20:27)
[2018-07-06] MEDS: CEFAZOLIN 1 GM/50 ML (PMX) 50 ML IVPB SCH (20:27)
[2018-07-07] VITALS (98 sets, daily range): BP systolic 64–165; BP diastolic 31–121; PULSE 72–103; RESP 12–25
[2018-07-07] MEDS: CYCLOBENZAPRINE 10 MG TAB PO SCH ×5 (00:39→22:56)
[2018-07-07] MEDS: FUROSEMIDE 40 MG TAB PO SCH (05:51)
[2018-07-07] MEDS: SEVELAMER CARBONATE 0.8 GM PKT PO SCH ×3 (08:00→19:03)
--- NOTE | 2018-07-07 08:45 | CONS ---
Assessment/Plan Assessment/Plan Assessment/Plan (Daily) 1. CKD, now being HD 2. Hypotension on pressors, will not UF and give NS if needed for lower BP 3. Heart cath noted, Cardiac surgery consult pending 4. Will dc diuretics as effect minimal with ESRD Consultation Date/Type/Reason Admit Date/Time Jul 04, 2018 at 20:45 Initial Consult Date 07/05/18 Requesting Provider: LAURA AHN MD Date/Time of Note DATE: 07/07/18 TIME: 08:43 Detailed Summary Respiratory: shortness of breath; No cough Cardiovascular: chest pain Gastrointestinal: no complaints Exam/Review of Systems Exam Vitals Vital Signs Date Temp Pulse Resp B/P (MAP) Pulse Ox O2 O2 Flow FiO2 Time Delivery Rate 07/07/18 98.3 80 17 146/56 96 Nasal 4.0 08:30 (86) Cannula Intake and Output 07/06/18 07/06/18 07/07/18 1515:00 23:00 07:00 IntakeIntake Total 50 ml 543.125 ml 18.125 ml BalanceBalance 50 ml 543.125 ml 18.125 ml Neck: No jvd Respiratory: clear to auscultation, diminished breath sounds Cardiovascular: regular rate and rhythm; No gallop Gastrointestinal: soft Extremities: No edema Results Result Diagram: 07/07/18 0500 07/07/18 0500 Results 24hrs Laboratory Tests Test 07/06/18 12:03 07/06/18 19:59 07/07/18 05:00 Bedside Glucose 348 H 205 White Blood Count 12.1 H Red Blood Count 3.54 L Hemoglobin 10.6 L Hematocrit 34.7 L Mean Corpuscular Volume 98.0 Mean Corpuscular Hemoglobin 29.9 Mean Corpuscular Hemoglobin Concent 30.5 L Red Cell Distribution Width 14.6 H Platelet Count 237 Mean Platelet Volume 11.2 H Immature Granulocytes % 0.800 H Neutrophils % 75.7 Lymphocytes % 12.5 L Monocytes % 9.1 Eosinophils % 1.6 Basophils % 0.3 Nucleated Red Blood Cells % 0.0 Immature Granulocytes # 0.100 H Neutrophils # 9.2 H Lymphocytes # 1.5 Monocytes # 1.1 H Eosinophils # 0.2 Basophils # 0.0 Nucleated Red Blood Cells # 0.0 Sodium Level 134 L Potassium Level 4.4 Chloride Level 93 L Carbon Dioxide Level 26 Anion Gap 15 H Blood Urea Nitrogen 80 H Creatinine 6.10 #H Est Glomerular Filtrat Rate mL/min 9 L Glucose Level 177 # Calcium Level 9.3 Medications Medication Current Medications Amitriptyline HCl (Elavil) 50 mg DAILY PO Last administered on 07/06/18 08:32; Admin Dose 50 MG; Start 07/05/18 at 09:00 Atorvastatin Calcium (Lipitor) 80 mg QHS PO Last administered on 07/06/18 20:27; Admin Dose 80 MG; Start 07/05/18 at 21:00 Cyclobenzaprine HCl (Flexeril) 10 mg Q6H PO Last administered on 07/07/18 05:51; Admin Dose 10 MG; Start 07/05/18 at 00:30 Docusate Sodium (Colace) 250 mg BID PO Last administered on 07/06/18 21:48; Admin Dose 250 MG; Start 07/05/18 at 09:00 Duloxetine HCl (Cymbalta) 60 mg DAILY PO Last administered on 07/06/18 08:31; Admin Dose 60 MG; Start 07/05/18 at 09:00 Econazole Nitrate (Spectazole 1% Cr) 15 applic DAILY TOP Last administered on 07/06/18 08:34; Admin Dose 15 APPLIC; Start 07/05/18 at 09:00 EZETIMIBE (Zetia) 10 mg DAILY PO Last administered on 07/06/18 08:31; Admin Dose 10 MG; Start 07/05/18 at 09:00 Fluocinonide (Lidex 0.05% Cr) 1 applic DAILY TOP Last administered on 07/06/18 08:35; Admin Dose 1 APPLIC; Start 07/05/18 at 09:00 Insulin Aspart (Novolog Insulin Pen) 12 unit WITH MEALS SC Last administered on 07/06/18 12:06; Admin Dose 12 UNIT; Start 07/05/18 at 07:55 Sevelamer Carbonate (Renvela) 1.6 gm WITH MEALS PO Last administered on 07/06/18 20:26; Admin Dose 1.6 GM; Start 07/05/18 at 07:55 Fenofibrate (Tricor) 145 mg DAILY PO Last administered on 07/06/18 08:32; Admin Dose 145 MG; Start 07/05/18 at 09:00 Tamsulosin HCl (Flomax) 0.4 mg HS PO Last administered on 07/06/18 20:27; Admin Dose 0.4 MG; Start 07/05/18 at 21:00 Zolpidem Tartrate (Ambien) 10 mg HS PRN PO INSOMNIA; Start 07/05/18 at 01:00 Pregabalin (Lyrica) 50 mg BID PO Last administered on 07/06/18 20:26; Admin Dose 50 MG; Start 07/05/18 at 09:00 Furosemide (Lasix) 80 mg BID DIURETICS PO Last administered on 07/07/18at 0 5:51; Admin Dose 80 MG; Start 07/05/18 at 06:00 Lactulose (Enulose) 10 gm DAILY PRN PO CONSTIPATION; Start 07/05/18 at 01:00 Ondansetron HCl (Zofran Tab) 8 mg Q6H PRN PO NAUSEA AND/OR VOMITING; Start 07/05/18 at 01:00 Albuterol/ Ipratropium (Duoneb) 3 ml Q8H RESP THERAPY PRN HHN SHORTNESS OF KIMI TH; Start 07/05/18 at 01:00 Acetaminophen (Tylenol Tab) 500 mg Q6H PRN PO MILD PAIN(1-3)OR ELEVATED TEMP; Start 07/05/18 at 01:00 Morphine Sulfate (morphine) 2 mg Q3 PRN IV SEVERE PAIN LEVEL 7-10 Last administered on 07/06/18 12:49; Admin Dose 2 MG; Start 07/05/18 at 01:00 Fluticasone/ Vilanterol (Breo Ellipta 100-25 Mcg Inh) 1 inh DAILY INH Last administered on 07/06/18at 08:33; Admin Dose 1 INH; Start 07/05/18 at 09:00 Fish Oil (Fish Oil) 1,000 mg BID PO Last administered on 07/06/18 20:26; Admin Dose 1,000 MG; Start 07/05/18 at 09:00 Non-Formulary Medication 1 ea DAILY PO ; Start 07/05/18 at 09:00; Status UNV Non-Formulary Medication 1 ea HS SC ; Start 07/05/18 at 21:00; Status UNV Ferric Sodium Gluconate Complex 125 mg/Sodium Chloride 100 ml @ 100 mls/hr DAILY@1300 IVPB Last administered on 07/06/18at 12:48; Admin Dose 100 MLS/HR; Start 07/06/18 at 13:00; Stop 07/08/18 at 13:59 Aspirin (Aspirin) 81 mg DAILY PO ; Start 07/07/18 at 09:00 Norepinephrine 250 ml @ 1.875 mls/ hr TITRATE IV Last administered on 07/06/18at 20:40; Admin Dose 5.625 MLS/HR; Start 07/06/18 at 18:30 Cefazolin Sodium 50 ml @ 100 mls/hr Q12 IVPB Last administered on 07/06/18at 20:27; Admin Dose 100 MLS/HR; Start 07/06/18 at 21:00 Metolazone (Zaroxolyn) 10 mg DAILY PO ; Start 07/07/18 at 09:00 SALBADOR SHIRLEY MD Jul 07, 2018 08:45
--- NOTE | 2018-07-07 08:54 | CONS ---
Assessment/Plan Assessment/Plan Hospital Course (Demo Recall) Unstable angina/CAD: complex three vessel CAD with ostial LAD, ostial OM, and occluded prox RCA MUFFLER HAND. In setting of DM, cardiomyopathy, and three vessel CAD, CABG is appropriate. Hypotension: unclear etiology. I do not think it is cardiac. Neck pain: may be musculoskeletal Chronic systolic heart failure: currently euvolemic Ischemic cardiomyopathy EF 20% prior report but echo here shows EF 35-40% s/p ICD for secondary prevention Paroxysmal atrial fibrillation Severe PAD s/p prior bypass: occluded bypass on cath 07/06/18 s/p right transmetatarsal amputation ESRD on HD Uncontrolled DM HTN COPD Burn wound/cellulitis depression Likely noncompliance -f/u cardiac surgery for timing of CABG -wean off levophed. Keep SBP >100 -start ASA -hold plavix -continue to hold Eliquis -hold coreg and coreg benazepril 10mg -lasix 80mg PO BID -lipitor 80mg, zetia -HD per nephrology Consultation Date/Type/Reason Admit Date/Time Jul 04, 2018 at 20:45 Initial Consult Date 07/05/18 Type of Consult Cardiology Requesting Provider: LAURA AHN MD Date/Time of Note DATE: 07/07/18 TIME: 08:51 24 HR Interval Summary Free Text/Dictation On low dose levophed and getting HD now but BP 140s. No complaints. Neck pain mild. No chest pain. Seen by cardiac surgery Exam/Review of Systems Vital Signs Vitals Vital Signs Date Temp Pulse Resp B/P (MAP) Pulse Ox O2 O2 Flow FiO2 Time Delivery Rate 07/07/18 82 08:50 07/07/18 98.3 17 146/56 96 Nasal 4.0 08:30 (86) Cannula Intake and Output 07/06/18 07/06/18 07/07/18 1515:00 23:00 07:00 IntakeIntake Total 50 ml 543.125 ml 18.125 ml BalanceBalance 50 ml 543.125 ml 18.125 ml Exam Constitutional: alert, oriented Psych: no complaints, nl mood/affect Head: normocephalic, atraumatic Neck: supple; No jvd Respiratory: diminished breath sounds; No clear to auscultation Cardiovascular: regular rate and rhythm, other (left groin no hematoma ); No edema Gastrointestinal: soft, non-tender Musculoskeletal: No nl extremities to inspection Neurological: nl mental status, nl speech Labs Result Diagram: 07/07/18 0500 07/07/18 0500 Results 24hrs Laboratory Tests Test 07/06/18 12:03 07/06/18 19:59 07/07/18 05:00 Bedside Glucose 348 H 205 White Blood Count 12.1 H Red Blood Count 3.54 L Hemoglobin 10.6 L Hematocrit 34.7 L Mean Corpuscular Volume 98.0 Mean Corpuscular Hemoglobin 29.9 Mean Corpuscular Hemoglobin Concent 30.5 L Red Cell Distribution Width 14.6 H Platelet Count 237 Mean Platelet Volume 11.2 H Immature Granulocytes % 0.800 H Neutrophils % 75.7 Lymphocytes % 12.5 L Monocytes % 9.1 Eosinophils % 1.6 Basophils % 0.3 Nucleated Red Blood Cells % 0.0 Immature Granulocytes # 0.100 H Neutrophils # 9.2 H Lymphocytes # 1.5 Monocytes # 1.1 H Eosinophils # 0.2 Basophils # 0.0 Nucleated Red Blood Cells # 0.0 Sodium Level 134 L Potassium Level 4.4 Chloride Level 93 L Carbon Dioxide Level 26 Anion Gap 15 H Blood Urea Nitrogen 80 H Creatinine 6.10 #H Est Glomerular Filtrat Rate mL/min 9 L Glucose Level 177 # Calcium Level 9.3 Medications Medications Current Medications Amitriptyline HCl (Elavil) 50 mg DAILY PO Last administered on 07/06/18at 08:32; Admin Dose 50 MG; Start 07/05/18 at 09:00 Atorvastatin Calcium (Lipitor) 80 mg QHS PO Last administered on 07/06/18at 20:27; Admin Dose 80 MG; Start 07/05/18 at 21:00 Cyclobenzaprine HCl (Flexeril) 10 mg Q6H PO Last administered on 07/07/18at 05:51; Admin Dose 10 MG; Start 07/05/18 at 00:30 Docusate Sodium (Colace) 250 mg BID PO Last administered on 07/06/18at 21:48; Admin Dose 250 MG; Start 07/05/18 at 09:00 Duloxetine HCl (Cymbalta) 60 mg DAILY PO Last administered on 07/06/18at 08:31; Admin Dose 60 MG; Start 07/05/18 at 09:00 Econazole Nitrate (Spectazole 1% Cr) 15 applic DAILY TOP Last administered on 07/06/18 08:34; Admin Dose 15 APPLIC; Start 07/05/18 at 09:00 EZETIMIBE (Zetia) 10 mg DAILY PO Last administered on 07/06/18 08:31; Admin Dose 10 MG; Start 07/05/18 at 09:00 Fluocinonide (Lidex 0.05% Cr) 1 applic DAILY TOP Last administered on 07/06/18 08:35; Admin Dose 1 APPLIC; Start 07/05/18 at 09:00 Insulin Aspart (Novolog Insulin Pen) 12 unit WITH MEALS SC Last administered on 07/06/18 12:06; Admin Dose 12 UNIT; Start 07/05/18 at 07:55 Sevelamer Carbonate (Renvela) 1.6 gm WITH MEALS PO Last administered on 07/06/18 20:26; Admin Dose 1.6 GM; Start 07/05/18 at 07:55 Fenofibrate (Tricor) 145 mg DAILY PO Last administered on 07/06/18 08:32; Admin Dose 145 MG; Start 07/05/18 at 09:00 Tamsulosin HCl (Flomax) 0.4 mg HS PO Last administered on 07/06/18 20:27; Admin Dose 0.4 MG; Start 07/05/18 at 21:00 Zolpidem Tartrate (Ambien) 10 mg HS PRN PO INSOMNIA; Start 07/05/18 at 01:00 Pregabalin (Lyrica) 50 mg BID PO Last administered on 07/06/18 20:26; Admin Dose 50 MG; Start 07/05/18 at 09:00 Lactulose (Enulose) 10 gm DAILY PRN PO CONSTIPATION; Start 07/05/18 at 01:00 Ondansetron HCl (Zofran Tab) 8 mg Q6H PRN PO NAUSEA AND/OR VOMITING; Start 07/05/18 at 01:00 Albuterol/ Ipratropium (Duoneb) 3 ml Q8H RESP THERAPY PRN HHN SHORTNESS OF BREATH; Start 07/05/18 at 01:00 Acetaminophen (Tylenol Tab) 500 mg Q6H PRN PO MILD PAIN(1-3)OR ELEVATED TEMP; Start 07/05/18 at 01:00 Morphine Sulfate (morphine) 2 mg Q3 PRN IV SEVERE PAIN LEVEL 7-10 Last administered on 07/06/18 12:49; Admin Dose 2 MG; Start 07/05/18 at 01:00 Fluticasone/ Vilanterol (Breo Ellipta 100-25 Mcg Inh) 1 inh DAILY INH Last administered on 07/06/18 08:33; Admin Dose 1 INH; Start 07/05/18 at 09:00 Fish Oil (Fish Oil) 1,000 mg BID PO Last administered on 07/06/18 20:26; Admin Dose 1,000 MG; Start 07/05/18 at 09:00 Non-Formulary Medication 1 ea DAILY PO ; Start 07/05/18 at 09:00; Status UNV Non-Formulary Medication 1 ea HS SC ; Start 07/05/18 at 21:00; Status UNV Ferric Sodium Gluconate Complex 125 mg/Sodium Chloride 100 ml @ 100 mls/hr DAILY@1300 IVPB Last administered on 07/06/18 12:48; Admin Dose 100 MLS/HR; Start 07/06/18 at 13:00; Stop 07/08/18 at 13:59 Aspirin (Aspirin) 81 mg DAILY PO ; Start 07/07/18 at 09:00 Norepinephrine 250 ml @ 1.875 mls/ hr TITRATE IV Last administered on 07/06/18 20:40; Admin Dose 5.625 MLS/HR; Start 07/06/18 at 18:30 Cefazolin Sodium 50 ml @ 100 mls/hr Q12 IVPB Last administered on 07/06/18 20:27; Admin Dose 100 MLS/HR; Start 07/06/18 at 21:00 TAHIRA BUCHANAN Jul 07, 2018 08:54
[2018-07-07] MEDS: AMITRIPTYLINE 50 MG TAB PO SCH (09:00)
[2018-07-07] MEDS ORDERED: METOLAZONE 5 MG TAB PO SCH (09:00)
[2018-07-07] MEDS: INSULIN ASPART [NOVOLOG] 3 ML PEN SC SCH ×3 (09:06→19:00)
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
[2018-07-07] MEDS ORDERED: SOD CHLORIDE 0.9% 500 ML IV ONE (09:30)
[2018-07-07] MEDS: DOCUSATE SODIUM 250 MG CAP PO SCH ×2 (09:49→20:33)
[2018-07-07] MEDS: ASPIRIN 81 MG TAB PO SCH (09:49)
[2018-07-07] MEDS: EZETIMIBE 10 MG TAB PO SCH (09:49)
[2018-07-07] MEDS: FENOFIBRATE 145 MG TAB PO SCH (09:49)
[2018-07-07] MEDS: FISH OIL 1,000 MG CAP PO SCH ×2 (09:49→20:33)
[2018-07-07] MEDS: PREGABALIN 50 MG CAP PO SCH ×2 (09:49→20:33)
[2018-07-07] MEDS: DULOXETINE 30 MG CAP DR PO SCH (09:49)
[2018-07-07] MEDS: ECONAZOLE TOP SCH (09:50)
[2018-07-07] MEDS: FLUOCINONIDE 0.05% CR 30GM TUBE TOP SCH (09:50)
[2018-07-07] MEDS: FLUTICASONE/VILANTEROL 100-25 INH SCH (09:50)
[2018-07-07] MEDS: morphine 2 MG INJ IV PRN ×3 (10:00→23:00)
[2018-07-07] MEDS: CEFAZOLIN 1 GM/50 ML (PMX) 50 ML IVPB SCH ×2 (11:01→20:33)
--- NOTE | 2018-07-07 14:29 | CONS ---
[facility] HCIS Consult Follow-up Patient Name: Whitley Quiroz Unit Number: [id number] Date of : 1955 Patient Status: Admitted Inpatient Attending Doctor: Laura Chong MD Edit: JEREMIAH PEDERSON M.D. on 07/10/18 @ 04:47 Bg: I discussed the management with RPG PROGRAMMER ANALYST and agree Assessment/Plan Assessment/Plan Hospital Course (Demo Recall) - Cellulitis left foot - Angina - complex three vessel CAD with ostial LAD, ostial OM, and occluded prox RCA SEPHORA OPERATIONS CONSULTANT 07/06/18 - CAD - HLD - HTN - uncontrolled DM with diabetic neuropathy - ESRD on HD - PAD s/p L fem bypass grafting 2011, occluded bypass on cath 07/06/18 - P Afib - CHF - Colitis - GERD - Vascular disease s/p revascularization and debridement surgeries of the feet - Pain syndrome - Depression - Morbid obesity - s/p ICD placement - Hx right TMA - Hx GIB - Hx pancreatitis - Hx UTI - Hx OM ofthe metatarsal on the Right foot - Hx L thigh abscess 2012 - Hx MRSA nares 01/23/2013 Recommendations: - Continue Cefazolin (07/06/18 - ); potentially short course - pt's awaiting a CABG eval will continue to follow closely with you Plan was d/w the RN at the bedside and with Dr. Pederson. Thank you Total critical care time spent: 45 minutes. Consultation Date/Type/Reason Admit Date/Time Jul 04, 2018 at 20:45 Initial Consult Date 07/06/18 Requesting Provider: LAURA CHONG MD Date/Time of Note DATE: 07/07/18 TIME: 14:20 24 HR Interval Summary Free Text/Dictation Per d/w nsg the patient has remained afebrile with no acute issues reported today. Noted increase in wbc 12.1 today. Blood cultures are ngtd. Awaiting eval for CABG. The patient denied all ROS on a 10pt ROS. Exam/Review of Systems Exam Vitals Vital Signs Date Temp Pulse Resp B/P (MAP) Pulse Ox O2 O2 Flow FiO2 Time Delivery Rate 07/07/18 78 10:38 07/07/18 98.3 17 146/56 96 Nasal 4.0 08:30 (86) Cannula Intake and Output 07/06/18 07/06/18 07/07/18 1515:00 23:00 07:00 IntakeIntake Total 50 ml 543.125 ml 18.125 ml BalanceBalance 50 ml 543.125 ml 18.125 ml Allergies Coded Allergies No Known Allergies (Unverified Allergy, Mild, 07/04/18) Constitutional: alert, oriented, well developed, obese Psych: no complaints, nl mood/affect, other (sitting up in bed eating strawberries ) Head: normocephalic, atraumatic Eyes: nl conjunctiva, nl lids, nl sclera ENMT: nl external ears & nose, nl nasal mucosa & septum, mucosa pink and moist (no thrush) Neck: supple, non-tender, other (R IJ central line site is c/d/i) Respiratory: clear to auscultation, normal air movement, diminished breath sounds Cardiovascular: regular rate and rhythm, nl pulses Gastrointestinal: soft, non-tender, bowel sounds (normoactive ); No distended, No tender Musculoskeletal: nl extremities to inspection Extremities: normal pulses Neurological: nl mental status, nl speech, nl strength Skin: nl turgor; No rash or lesions Results Result Diagram: 07/07/18 0500 07/07/18 0500 Results 24hrs Laboratory Tests Test 07/06/18 19:59 07/07/18 05:00 07/07/18 09:06 07/07/18 12:26 Bedside Glucose 205 136 133 White Blood Count 12.1 H Red Blood Count 3.54 L Hemoglobin 10.6 L Hematocrit 34.7 L Mean Corpuscular 98.0 Volume Mean Corpuscular 29.9 Hemoglobin Mean Corpuscular 30.5 L Hemoglobin Concent Red Cell 14.6 H Distribution Width Platelet Count 237 Mean Platelet Volume 11.2 H Immature 0.800 H Granulocytes % Neutrophils % 75.7 Lymphocytes % 12.5 L Monocytes % 9.1 Eosinophils % 1.6 Basophils % 0.3 Nucleated Red Blood 0.0 Cells % Immature 0.100 H Granulocytes # Neutrophils # 9.2 H Lymphocytes # 1.5 Monocytes # 1.1 H Eosinophils # 0.2 Basophils # 0.0 Nucleated Red Blood 0.0 Cells # Sodium Level 134 L Potassium Level 4.4 Chloride Level 93 L Carbon Dioxide Level 26 Anion Gap 15 H Blood Urea Nitrogen 80 H Creatinine 6.10 #H Est Glomerular 9 L Filtrat Rate mL/min Glucose Level 177 # Calcium Level 9.3 Imaging Imaging CXR 07/06/18 IMPRESSION: 1. Moderate cardiomegaly. 2. Bibasilar atelectasis. 3. Right chest pacemaker AICD. Right internal jugular catheter in place, in the superior vena cava. Medications Medication Current Medications Amitriptyline HCl (Elavil) 50 mg DAILY PO Last administered on 07/06/18 08:32; Admin Dose 50 MG; Start 07/05/18 at 09:00 Atorvastatin Calcium (Lipitor) 80 mg QHS PO Last administered on 07/06/18 20:27; Admin Dose 80 MG; Start 07/05/18 at 21:00 Cyclobenzaprine HCl (Flexeril) 10 mg Q6H PO Last administered on 07/07/18 12:30; Admin Dose 10 MG; Start 07/05/18 at 00:30 Docusate Sodium (Colace) 250 mg BID PO Last administered on 07/07/18 09:49; Admin Dose 250 MG; Start 07/05/18 at 09:00 Duloxetine HCl (Cymbalta) 60 mg DAILY PO Last administered on 07/07/18 09:49; Admin Dose 60 MG; Start 07/05/18 at 09:00 Econazole Nitrate (Spectazole 1% Cr) 15 applic DAILY TOP Last administered on 07/06/18 08:34; Admin Dose 15 APPLIC; Start 07/05/18 at 09:00 EZETIMIBE (Zetia) 10 mg DAILY PO Last administered on 07/07/18 09:49; Admin Dose 10 MG; Start 07/05/18 at 09:00 Fluocinonide (Lidex 0.05% Cr) 1 applic DAILY TOP Last administered on 07/06/18 08:35; Admin Dose 1 APPLIC; Start 07/05/18 at 09:00 Insulin Aspart (Novolog Insulin Pen) 12 unit WITH MEALS SC Last administered on 07/07/18 12:32; Admin Dose 12 UNIT; Start 07/05/18 at 07:55 Sevelamer Carbonate (Renvela) 1.6 gm WITH MEALS PO Last administered on 07/07/18 12:30; Admin Dose 1.6 GM; Start 07/05/18 at 07:55 Fenofibrate (Tricor) 145 mg DAILY PO Last administered on 07/07/18 09:49; Admin Dose 145 MG; Start 07/05/18 at 09:00 Tamsulosin HCl (Flomax) 0.4 mg HS PO Last administered on 07/06/18 20:27; Admin Dose 0.4 MG; Start 07/05/18 at 21:00 Zolpidem Tartrate (Ambien) 10 mg HS PRN PO INSOMNIA; Start 07/05/18 at 01:00 Pregabalin (Lyrica) 50 mg BID PO Last administered on 07/07/18 09:49; Admin Dose 50 MG; Start 07/05/18 at 09:00 Lactulose (Enulose) 10 gm DAILY PRN PO CONSTIPATION; Start 07/05/18 at 01:00 Ondansetron HCl (Zofran Tab) 8 mg Q6H PRN PO NAUSEA AND/OR VOMITING; Start 07/05/18 at 01:00 Albuterol/ Ipratropium (Duoneb) 3 ml Q8H RESP THERAPY PRN HHN SHORTNESS OF BREATH; Start 07/05/18 at 01:00 Acetaminophen (Tylenol Tab) 500 mg Q6H PRN PO MILD PAIN(1-3)OR ELEVATED TEMP; Start 07/05/18 at 01:00 Morphine Sulfate (morphine) 2 mg Q3 PRN IV SEVERE PAIN LEVEL 7-10 Last administered on 07/07/18 10:00; Admin Dose 2 MG; Start 07/05/18 at 01:00 Fluticasone/ Vilanterol (Breo Ellipta 100-25 Mcg Inh) 1 inh DAILY INH Last admi nistered on 07/06/18 08:33; Admin Dose 1 INH; Start 07/05/18 at 09:00 Fish Oil (Fish Oil) 1,000 mg BID PO Last administered on 07/07/18 09:49; Admin Dose 1,000 MG; Start 07/05/18 at 09:00 Non-Formulary Medication 1 ea DAILY PO ; Start 07/05/18 at 09:00; Status UNV Non-Formulary Medication 1 ea HS SC ; Start 07/05/18 at 21:00; Status UNV Ferric Sodium Gluconate Complex 125 mg/Sodium Chloride 100 ml @ 100 mls/hr DAILY@1300 IVPB Last administered on 07/06/18at 12:48; Admin Dose 100 MLS/HR; S tart 07/06/18 at 13:00; Stop 07/08/18 at 13:59 Aspirin (Aspirin) 81 mg DAILY PO Last administered on 07/07/18at 09:49; Admin Dose 81 MG; Start 07/07/18 at 09:00 Norepinephrine 250 ml @ 1.875 mls/ hr TITRATE IV Last administered on 07/06/18at 20:40; Admin Dose 5.625 MLS/HR; Start 07/06/18 at 18:30 Cefazolin Sodium 50 ml @ 100 mls/hr Q12 IVPB Last administered on 07/07/18at 11:01; Admin Dose 100 MLS/HR; Start 07/06/18 at 21:00 OLIVER MATTHEWS NP Jul 07, 2018 14:29
[2018-07-07] MEDS: SOD FERRIC GLUC COMPLX 125 MG in SOD CHLORIDE 0.9% 100 ML IVPB SCH (14:57)
--- NOTE | 2018-07-07 18:46 | RADRPT ---
Vent Rate: 83 bpm RR Interval: 724 msec IA Interval: 163 msec QRS Duration: 102 msec QT Interval: 378 msec QTC Interval: 444 msec P-R-T [place]: 52 - 46 - 76 degrees Sinus rhythm...normal P axis, V-rate 50- 99 NOnspecific STTWA's Baseline artifact affecting accurate interpretation of ECG Electronically Signed By: Chencho Hendrix
[2018-07-07] MEDS: TAMSULOSIN (SR) 0.4 MG CAP PO SCH (20:33)
[2018-07-07] MEDS: ATORVASTATIN 80 MG TAB PO SCH (20:33)
[2018-07-08] VITALS (39 sets, daily range): BP systolic 85–140; BP diastolic 40–113; PULSE 66–90; RESP 12–21
[2018-07-08] MEDS: morphine 2 MG INJ IV PRN ×3 (01:54→20:58)
[2018-07-08] MEDS: CYCLOBENZAPRINE 10 MG TAB PO SCH ×3 (06:29→17:27)
[2018-07-08] MEDS: INSULIN ASPART [NOVOLOG] 3 ML PEN SC SCH ×3 (08:38→17:33)
[2018-07-08] MEDS: ECONAZOLE TOP SCH ×2 (09:15→14:17)
[2018-07-08] MEDS: EZETIMIBE 10 MG TAB PO SCH (09:16)
[2018-07-08] MEDS: ASPIRIN 81 MG TAB PO SCH (09:16)
[2018-07-08] MEDS: FISH OIL 1,000 MG CAP PO SCH ×2 (09:16→20:11)
[2018-07-08] MEDS: FENOFIBRATE 145 MG TAB PO SCH (09:16)
[2018-07-08] MEDS: AMITRIPTYLINE 50 MG TAB PO SCH (09:16)
[2018-07-08] MEDS: FLUTICASONE/VILANTEROL 100-25 INH SCH (09:16)
[2018-07-08] MEDS: SEVELAMER CARBONATE 0.8 GM PKT PO SCH ×3 (09:16→17:28)
[2018-07-08] MEDS: DOCUSATE SODIUM 250 MG CAP PO SCH ×2 (09:16→20:11)
[2018-07-08] MEDS: DULOXETINE 30 MG CAP DR PO SCH (09:17)
[2018-07-08] MEDS: CEFAZOLIN 1 GM/50 ML (PMX) 50 ML IVPB SCH ×2 (09:18→20:11)
[2018-07-08] MEDS: PREGABALIN 50 MG CAP PO SCH ×2 (09:19→20:12)
[2018-07-08] MEDS: SOD FERRIC GLUC COMPLX 125 MG in SOD CHLORIDE 0.9% 100 ML IVPB SCH (13:30)
[2018-07-08] MEDS: FLUOCINONIDE 0.05% CR 30GM TUBE TOP SCH (14:17)
--- NOTE | 2018-07-08 14:21 | CONS ---
[facility] HCIS Consult Follow-up Patient Name: Whitley Quiroz Unit Number: [id number] Date of : 1955 Patient Status: Admitted Inpatient Attending Doctor: Laura Chong MD Edit: JEREMIAH PEDERSON M.D. on 07/10/18 @ 04:49 Bg: I discussed the management with SURVEY COMPILER and agree Assessment/Plan Assessment/Plan Hospital Course (Demo Recall) - Cellulitis left foot - s/p burn injury at home while cooking per patient - improving - Angina - complex three vessel CAD with ostial LAD, ostial OM, and occluded prox RCA ERADICATOR 07/06/18 - CAD - HLD - HTN - uncontrolled DM with diabetic neuropathy - ESRD on HD - PAD s/p L fem bypass grafting 2011, occluded bypass on cath 07/06/18 - P Afib - CHF - Colitis - GERD - Vascular disease s/p revascularization and debridement surgeries of the feet - Pain syndrome - Depression - Morbid obesity - s/p ICD placement - Hx right TMA - Hx GIB - Hx pancreatitis - Hx UTI - Hx OM ofthe metatarsal on the Right foot - Hx L thigh abscess 2012 - 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 Pederson. Thank you Total critical care time spent: 40 minutes. Consultation Date/Type/Reason Admit Date/Time Jul 04, 2018 at 20:45 Initial Consult Date 07/06/18 Type of Consult ID Requesting Provider: LAURA CHONG MD Date/Time of Note DATE: 07/08/18 TIME: 14:21 24 HR Interval Summary Free Text/Dictation patient will be transferring out of ICU when a bed is available. Left foot improving. D/w patient's RN Lavelle. Detailed Summary Eyes: no complaints ENT: no complaints Respiratory: shortness of breath (with exertion); No cough Cardiovascular: no complaints Gastrointestinal: constipation, other (distention) Genitourinary: no complaints Musculoskeletal: no complaints Skin: no complaints Neurologic: no complaints Endocrine: no complaints Lymphatic: no complaints Psychological: no complaints Immunologic: no complaints Exam/Review of Systems Exam Vitals Vital Signs Date Temp Pulse Resp B/P (MAP) Pulse Ox O2 O2 Flow FiO2 Time Delivery Rate 07/08/18 66 12:00 07/08/18 17 106/45 100 Nasal 4.0 10:02 (65) Cannula 07/08/18 97.6 08:00 07/08/18 27 01:30 Intake and Output 07/07/18 07/07/18 07/08/18 1515:00 23:00 07:00 IntakeIntake Total 51.085 ml 563.7475 ml 3.75 ml OutputOutput Total 1700 ml 0 ml BalanceBalance -1648.915 ml 563.7475 ml 3.75 ml Allergies Coded Allergies No Known Allergies (Unverified Allergy, Mild, 07/04/18) Exam Constitutional: alert, oriented, well developed, obese Psych: no complaints, nl mood/affect, other (sitting up in a chair at the bedside) Head: normocephalic, atraumatic Eyes: nl conjunctiva, nl lids, nl sclera ENMT: nl external ears & nose, nl nasal mucosa & septum, mucosa pink and moist (no thrush) Neck: supple, non-tender, other (R IJ central line site is c/d/i) Respiratory: clear to auscultation, normal air movement, diminished breath sounds Cardiovascular: regular rate and rhythm, nl pulses Gastrointestinal: soft, non-tender, distended, bowel sounds (normoactive ); No distended, No tender Musculoskeletal: nl extremities to inspection Extremities: normal pulses Neurological: nl mental status, nl speech, nl strength Skin: nl turgor; No rash or lesions Results Result Diagram: 07/08/188 07/08/18 0408 Results 24hrs Laboratory Tests Test 07/07/18 18:57 07/08/18 04:08 07/08/18 08:35 07/08/18 12:19 Bedside Glucose 254 H 204 201 White Blood Count 8.4 # Red Blood Count 3.26 L Hemoglobin 9.6 L Hematocrit 32.1 L Mean Corpuscular 98.5 Volume Mean Corpuscular 29.4 Hemoglobin Mean Corpuscular 29.9 L Hemoglobin Concent Red Cell 14.6 H Distribution Width Platelet Count 236 Mean Platelet Volume 11.3 H Immature 1.000 H Granulocytes % Neutrophils % 69.0 Lymphocytes % 16.3 Monocytes % 9.3 Eosinophils % 3.6 Basophils % 0.8 Nucleated Red Blood 0.0 Cells % Immature 0.080 H Granulocytes # Neutrophils # 5.8 Lymphocytes # 1.4 Monocytes # 0.8 Eosinophils # 0.3 Basophils # 0.1 Nucleated Red Blood 0.0 Cells # Sodium Level 136 Potassium Level 4.3 Chloride Level 96 L Carbon Dioxide Level 31 Anion Gap 9 # Blood Urea Nitrogen 59 H Creatinine 4.65 #H Est Glomerular 13 L Filtrat Rate mL/min Glucose Level 195 Calcium Level 9.1 Phosphorus Level 5.9 H Medications Medication Current Medications Amitriptyline HCl (Elavil) 50 mg DAILY PO Last administered on 07/08/18 09:16; Admin Dose 50 MG; Start 07/05/18 at 09:00 Atorvastatin Calcium (Lipitor) 80 mg QHS PO Last administered on 07/07/18 20:33; Admin Dose 80 MG; Start 07/05/18 at 21:00 Cyclobenzaprine HCl (Flexeril) 10 mg Q6H PO Last administered on 07/08/18 12:22; Admin Dose 10 MG; Start 07/05/18 at 00:30 Docusate Sodium (Colace) 250 mg BID PO Last administered on 07/08/18 09:16; Admin Dose 250 MG; Start 07/05/18 at 09:00 Duloxetine HCl (Cymbalta) 60 mg DAILY PO Last administered on 07/08/18 09:17; Admin Dose 60 MG; Start 07/05/18 at 09:00 Econazole Nitrate (Spectazole 1% Cr) 15 applic DAILY TOP Last administered on 07/08/18 14:17; Admin Dose 15 APPLIC; Start 07/05/18 at 09:00 EZETIMIBE (Zetia) 10 mg DAILY PO Last administered on 07/08/18 09:16; Admin Dose 10 MG; Start 07/05/18 at 09:00 Fluocinonide (Lidex 0.05% Cr) 1 applic DAILY TOP Last administered on 07/08/18 14:17; Admin Dose 1 APPLIC; Start 07/05/18 at 09:00 Insulin Aspart (Novolog Insulin Pen) 12 unit WITH MEALS SC Last administered on 07/08/18 12:25; Admin Dose 12 UNIT; Start 07/05/18 at 07:55 Sevelamer Carbonate (Renvela) 1.6 gm WITH MEALS PO Last administered on 07/08/18 12:22; Admin Dose 1.6 GM; Start 07/05/18 at 07:55 Fenofibrate (Tricor) 145 mg DAILY PO Last administered on 07/08/18 09:16; Admin Dose 145 MG; Start 07/05/18 at 09:00 Tamsulosin HCl (Flomax) 0.4 mg HS PO Last administered on 07/07/18at 20:33; Admin Dose 0.4 MG; Start 07/05/18 at 21:00 Zolpidem Tartrate (Ambien) 10 mg HS PRN PO INSOMNIA; Start 07/05/18 at 01:00 Pregabalin (Lyrica) 50 mg BID PO Last administered on 07/08/18 09:19; Admin Dose 50 MG; Start 07/05/18 at 09:00 Lactulose (Enulose) 10 gm DAILY PRN PO CONSTIPATION; Start 07/05/18 at 01:00 Ondansetron HCl (Zofran Tab) 8 mg Q6H PRN PO NAUSEA AND/OR VOMITING; Start 07/05/18 at 01:00 Albuterol/ Ipratropium (Duoneb) 3 ml Q8H RESP THERAPY PRN HHN SHORTNESS OF BREATH; Start 07/05/18 at 01:00 Acetaminophen (Tylenol Tab) 500 mg Q6H PRN PO MILD PAIN(1-3)OR ELEVATED TEMP; Start 07/05/18 at 01:00 Morphine Sulfate (morphine) 2 mg Q3 PRN IV SEVERE PAIN LEVEL 7-10 Last administered on 07/08/18 14:18; Admin Dose 2 MG; Start 07/05/18 at 01:00 Fluticasone/ Vilanterol (Breo Ellipta 100-25 Mcg Inh) 1 inh DAILY INH Last administered on 07/08/18 09:16; Admin Dose 1 INH; Start 07/05/18 at 09:00 Fish Oil (Fish Oil) 1,000 mg BID PO Last administered on 07/08/18 09:16; Admin Dose 1,000 MG; Start 07/05/18 at 09:00 Non-Formulary Medication 1 ea DAILY PO ; Start 07/05/18 at 09:00; Status UNV Non-Formulary Medication 1 ea HS SC ; Start 07/05/18 at 21:00; Status UNV Aspirin (Aspirin) 81 mg DAILY PO Last administered on 07/08/18 09:16; Admin Dose 81 MG; Start 07/07/18 at 09:00 Cefazolin Sodium 50 ml @ 100 mls/hr Q12 IVPB Last administered on 07/08/18 09:18; Admin Dose 100 MLS/HR; Start 07/06/18 at 21:00 OLIVER MATTHEWS NP Jul 08, 2018 14:21
--- NOTE | 2018-07-08 16:16 | CONS ---
Assessment/Plan Assessment/Plan Assessment/Plan (Daily) 63 m with complicated PMH as detailed below: * ESRD: s/p hd yesterday. no UF due to hypotension. now off pressors and will plan hd in am * Cellulitis left foot - s/p burn injury at home while cooking per patient - improving * complex three vessel CAD with ostial LAD, ostial OM, and occluded prox RCA INVOICE MACHINE OPERATOR 07/06/18: awaiting decision regarding possible cabg * hypotension: off pressors * - uncontrolled DM with diabetic neuropathy: cont iss * -PAD s/p L fem bypass grafting 2011, occluded bypass on cath 07/06/18 * Afib: rate control per cardiology * CHF: attempt Uf with hd in * Morbid obesity : no change * s/p ICD placement prognosis very gaurded Consultation Date/Type/Reason Admit Date/Time Jul 04, 2018 at 20:45 Initial Consult Date 07/06/18 Requesting Provider: LAURA AHN MD Date/Time of Note DATE: 07/08/18 TIME: 16:11 24 HR Interval Summary Free Text/Dictation off pressors. no new events. awaiting cardiac surgery eval Exam/Review of Systems Exam Vitals Vital Signs Date Temp Pulse Resp B/P (MAP) Pulse Ox O2 O2 Flow FiO2 Time Delivery Rate 07/08/18 66 12:00 07/08/18 17 106/45 100 Nasal 4.0 10:02 (65) Cannula 07/08/18 97.6 08:00 07/08/18 27 01:30 Intake and Output 07/07/18 07/07/18 07/08/18 1515:00 23:00 07:00 IntakeIntake Total 51.085 ml 563.7475 ml 3.75 ml OutputOutput Total 1700 ml 0 ml BalanceBalance -1648.915 ml 563.7475 ml 3.75 ml Head: normocephalic Eyes: nl conjunctiva Neck: supple, non-tender Respiratory: diminished breath sounds Cardiovascular: regular rate and rhythm, edema Gastrointestinal: soft (orally intubated) Results Result Diagram: 07/08/18 0408 07/08/18 0408 Results 24hrs Laboratory Tests Test 07/07/18 18:57 07/08/18 04:08 07/08/18 08:35 07/08/18 12:19 Bedside Glucose 254 H 204 201 White Blood Count 8.4 # Red Blood Count 3.26 L Hemoglobin 9.6 L Hematocrit 32.1 L Mean Corpuscular 98.5 Volume Mean Corpuscular 29.4 Hemoglobin Mean Corpuscular 29.9 L Hemoglobin Concent Red Cell 14.6 H Distribution Width Platelet Count 236 Mean Platelet Volume 11.3 H Immature 1.000 H Granulocytes % Neutrophils % 69.0 Lymphocytes % 16.3 Monocytes % 9.3 Eosinophils % 3.6 Basophils % 0.8 Nucleated Red Blood 0.0 Cells % Immature 0.080 H Granulocytes # Neutrophils # 5.8 Lymphocytes # 1.4 Monocytes # 0.8 Eosinophils # 0.3 Basophils # 0.1 Nucleated Red Blood 0.0 Cells # Sodium Level 136 Potassium Level 4.3 Chloride Level 96 L Carbon Dioxide Level 31 Anion Gap 9 # Blood Urea Nitrogen 59 H Creatinine 4.65 #H Est Glomerular 13 L Filtrat Rate mL/min Glucose Level 195 Calcium Level 9.1 Phosphorus Level 5.9 H Medications Medication Current Medications Amitriptyline HCl (Elavil) 50 mg DAILY PO Last administered on 07/08/18 09:16; Admin Dose 50 MG; Start 07/05/18 at 09:00 Atorvastatin Calcium (Lipitor) 80 mg QHS PO Last administered on 07/07/18 20:33; Admin Dose 80 MG; Start 07/05/18 at 21:00 Cyclobenzaprine HCl (Flexeril) 10 mg Q6H PO Last administered on 07/08/18 12:22; Admin Dose 10 MG; Start 07/05/18 at 00:30 Docusate Sodium (Colace) 250 mg BID PO Last administered on 07/08/18 09:16; Admin Dose 250 MG; Start 07/05/18 at 09:00 Duloxetine HCl (Cymbalta) 60 mg DAILY PO Last administered on 07/08/18 09:17; Admin Dose 60 MG; Start 07/05/18 at 09:00 Econazole Nitrate (Spectazole 1% Cr) 15 applic DAILY TOP Last administered on 07/08/18 14:17; Admin Dose 15 APPLIC; Start 07/05/18 at 09:00 EZETIMIBE (Zetia) 10 mg DAILY PO Last administered on 07/08/18 09:16; Admin Dose 10 MG; Start 07/05/18 at 09:00 Fluocinonide (Lidex 0.05% Cr) 1 applic DAILY TOP Last administered on 07/08/18 14:17; Admin Dose 1 APPLIC; Start 07/05/18 at 09:00 Insulin Aspart (Novolog Insulin Pen) 12 unit WITH MEALS SC Last administered on 07/08/18 12:25; Admin Dose 12 UNIT; Start 07/05/18 at 07:55 Sevelamer Carbonate (Renvela) 1.6 gm WITH MEALS PO Last administered on 07/08/18 12:22; Admin Dose 1.6 GM; Start 07/05/18 at 07:55 Fenofibrate (Tricor) 145 mg DAILY PO Last administered on 07/08/18 09:16; Admin Dose 145 MG; Start 07/05/18 at 09:00 Tamsulosin HCl (Flomax) 0.4 mg HS PO Last administered on 07/07/18 20:33; Admin Dose 0.4 MG; Start 07/05/18 at 21:00 Zolpidem Tartrate (Ambien) 10 mg HS PRN PO INSOMNIA; Start 07/05/18 at 01:00 Pregabalin (Lyrica) 50 mg BID PO Last administered on 07/08/18 09:19; Admin Dose 50 MG; Start 07/05/18 at 09:00 Lactulose (Enulose) 10 gm DAILY PRN PO CONSTIPATION; Start 07/05/18 at 01:00 Ondansetron HCl (Zofran Tab) 8 mg Q6H PRN PO NAUSEA AND/OR VOMITING; Start 07/05/18 at 01:00 Albuterol/ Ipratropium (Duoneb) 3 ml Q8H RESP THERAPY PRN HHN SHORTNESS OF BREATH; Start 07/05/18 at 01:00 Acetaminophen (Tylenol Tab) 500 mg Q6H PRN PO MILD PAIN(1-3)OR ELEVATED TEMP; Start 07/05/18 at 01:00 Morphine Sulfate (morphine) 2 mg Q3 PRN IV SEVERE PAIN LEVEL 7-10 Last administ ered on 07/08/18 14:18; Admin Dose 2 MG; Start 07/05/18 at 01:00 Fluticasone/ Vilanterol (Breo Ellipta 100-25 Mcg Inh) 1 inh DAILY INH Last administered on 07/08/18 09:16; Admin Dose 1 INH; Start 07/05/18 at 09:00 Fish Oil (Fish Oil) 1,000 mg BID PO Last administered on 07/08/18 09:16; Admin Dose 1,000 MG; Start 07/05/18 at 09:00 Non-Formulary Medication 1 ea DAILY PO ; Start 07/05/18 at 09:00; Status UNV Non-Formulary Medication 1 ea HS SC ; Start 07/05/18 at 21:00; Status UNV Aspirin (Aspirin) 81 mg DAILY PO Last administered on 07/08/18 09:16; Admin Dose 81 MG; Start 07/07/18 at 09:00 Cefazolin Sodium 50 ml @ 100 mls/hr Q12 IVPB Last administered on 07/08/18 09:18; Admin Dose 100 MLS/HR; Start 07/06/18 at 21:00 LALITHA BENAVIDES MD Jul 08, 2018 16:16
[2018-07-08] MEDS ORDERED: HEPARIN 1000 UNITS/ML 10 ML INJ CATHETER SCH (16:30)
[2018-07-08] MEDS: TAMSULOSIN (SR) 0.4 MG CAP PO SCH (20:11)
[2018-07-08] MEDS: ATORVASTATIN 80 MG TAB PO SCH (20:11)
[2018-07-09] VITALS (29 sets, daily range): BP systolic 83–138; BP diastolic 43–79; PULSE 74–84; RESP 16–24
[2018-07-09] MEDS: CYCLOBENZAPRINE 10 MG TAB PO SCH ×5 (00:11→23:30)
[2018-07-09] MEDS: morphine 2 MG INJ IV PRN ×2 (05:13→12:14)
[2018-07-09] MEDS: INSULIN ASPART [NOVOLOG] 3 ML PEN SC SCH ×3 (08:27→17:25)
[2018-07-09] MEDS: ECONAZOLE TOP SCH (08:59)
[2018-07-09] MEDS: SEVELAMER CARBONATE 0.8 GM PKT PO SCH ×3 (09:00→17:19)
[2018-07-09] MEDS: DOCUSATE SODIUM 250 MG CAP PO SCH ×2 (09:00→21:08)
[2018-07-09] MEDS: AMITRIPTYLINE 50 MG TAB PO SCH (09:00)
[2018-07-09] MEDS: FISH OIL 1,000 MG CAP PO SCH ×2 (09:01→21:07)
[2018-07-09] MEDS: FLUTICASONE/VILANTEROL 100-25 INH SCH (09:01)
[2018-07-09] MEDS: FLUOCINONIDE 0.05% CR 30GM TUBE TOP SCH (09:01)
[2018-07-09] MEDS: EZETIMIBE 10 MG TAB PO SCH (09:01)
[2018-07-09] MEDS: ASPIRIN 81 MG TAB PO SCH (09:01)
[2018-07-09] MEDS: CEFAZOLIN 1 GM/50 ML (PMX) 50 ML IVPB SCH (09:01)
[2018-07-09] MEDS: DULOXETINE 30 MG CAP DR PO SCH (09:01)
[2018-07-09] MEDS: PREGABALIN 50 MG CAP PO SCH ×2 (09:04→21:08)
--- NOTE | 2018-07-09 11:48 | CONS ---
[facility] Whitley Quiro[facility] Unit Number: [id number] Date of : 1955 Patient Status: Admitted Inpatient Attending Doctor: Laura Chong MD Edit: JEREMIAH PEDERSON M.D. on 07/10/18 @ 04:53 Bg: I discussed the management with CHASER HELPER and agree Assessment/Plan Assessment/Plan Hospital Course (Demo Recall) - Cellulitis left foot - s/p burn injury at home while cooking per patient - improving - Angina - complex three vessel CAD with ostial LAD, ostial OM, and occluded prox RCA NURSE CONSULTANT 07/06/18 - CAD - HLD - HTN - uncontrolled DM with diabetic neuropathy - ESRD on HD - PAD s/p L fem bypass grafting 2011, occluded bypass on cath 07/06/18 - P Afib - CHF - Colitis - GERD - Vascular disease s/p revascularization and debridement surgeries of the feet - Pain syndrome - Depression - Morbid obesity - s/p ICD placement - Hx right TMA - Hx GIB - Hx pancreatitis - Hx UTI - Hx OM ofthe metatarsal on the Right foot - Hx L thigh abscess 2012 - 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 Pederson. Thank you Consultation Date/Type/Reason Admit Date/Time Jul 04, 2018 at 20:45 Initial Consult Date 07/06/18 Type of Consult ID Requesting Provider: LAURA CHONG MD Date/Time of Note DATE: 07/09/18 TIME: 11:43 Detailed Summary Eyes: no complaints ENT: no complaints Respiratory: shortness of breath (with exertion); No cough, No sputum, No wheezing Cardiovascular: no complaints Gastrointestinal: constipation, other (distention) Genitourinary: no complaints Musculoskeletal: other (rosemarie shoulder pain) Skin: no complaints Neurologic: no complaints Endocrine: no complaints Lymphatic: no complaints Psychological: no complaints, other (sleepy) Immunologic: no complaints Exam/Review of Systems Exam Vitals Vital Signs Date Temp Pulse Resp B/P (MAP) Pulse Ox O2 O2 Flow FiO2 Time Delivery Rate 07/09/18 98.6 79 20 105/53 95 Nasal 11:27 (70) Cannula 07/09/18 4.0 08:45 07/08/18 27 01:30 Intake and Output 07/08/18 07/08/18 07/09/18 1515:00 23:00 07:00 IntakeIntake Total 1000 ml 710 ml OutputOutput Total 0 ml 0 ml 0 ml BalanceBalance 1000 ml 710 ml 0 ml Allergies Coded Allergies No Known Allergies (Unverified Allergy, Mild, 07/04/18) Exam Constitutional: alert, oriented, well developed, obese Psych: no complaints, nl mood/affect, other (sitting up in bed) Head: normocephalic, atraumatic Eyes: nl conjunctiva, nl lids, nl sclera ENMT: nl external ears & nose, nl nasal mucosa & septum, mucosa pink and moist (no thrush) Neck: supple, non-tender, other (R IJ central line site is c/d/i) Respiratory: clear to auscultation, normal air movement, diminished breath sounds Cardiovascular: regular rate and rhythm, nl pulses Gastrointestinal: soft, non-tender, distended, bowel sounds (normoactive); No distended, No tender Musculoskeletal: nl extremities to inspection Extremities: normal pulses Neurological: nl mental status, nl speech, nl strength Skin: nl turgor; No rash or lesions Results Result Diagram: 07/09/18 0400 07/09/18 0400 Results 24hrs Laboratory Tests Test 07/08/18 12:19 07/08/18 17:23 07/08/18 20:09 07/09/18 04:00 Bedside Glucose 201 128 176 White Blood Count 8.0 Red Blood Count 3.17 L Hemoglobin 9.4 L Hematocrit 31.6 L Mean Corpuscular 99.7 Volume Mean Corpuscular 29.7 Hemoglobin Mean Corpuscular 29.7 L Hemoglobin Concent Red Cell 14.4 Distribution Width Platelet Count 245 Mean Platelet Volume 11.0 H Immature 1.000 H Granulocytes % Neutrophils % 70.7 Lymphocytes % 15.2 Monocytes % 7.8 Eosinophils % 4.6 Basophils % 0.7 Nucleated Red Blood 0.0 Cells % Immature 0.080 H Granulocytes # Neutrophils # 5.7 Lymphocytes # 1.2 Monocytes # 0.6 Eosinophils # 0.4 Basophils # 0.1 Nucleated Red Blood 0.0 Cells # Sodium Level 135 Potassium Level 4.7 Chloride Level 91 L Carbon Dioxide Level 30 Anion Gap 14 H Blood Urea Nitrogen 73 H Creatinine 6.30 H Est Glomerular 9 L Filtrat Rate mL/min Glucose Level 179 Calcium Level 8.8 Total Bilirubin 0.1 L Direct Bilirubin 0.00 Indirect Bilirubin 0.1 Aspartate Amino 27 Transf (AST/SGOT) Alanine 6 L Aminotransferase (AL T/SGPT) Alkaline Phosphatase 88 Total Protein 7.0 Albumin 3.8 Globulin 3.20 Albumin/Globulin 1.18 Ratio Test 07/09/18 08:20 Bedside Glucose 220 Imaging Imaging Thoracic spine xray 07/09/18 IMPRESSION: Degenerative changes without acute fractures or subluxations. Shoulder Xray 07/09/18 IMPRESSION: No evidence of acute fracture dislocation or AC separation. Lumbar Spine Xray 07/09/18 IMPRESSION: Degenerate changes as above without evidence of acute fractures or subluxations. Cervical Spine Xray 07/09/18 IMPRESSION: Limited evaluation of the cervical spine as above without acute fractures or subluxations. Medications Medication Current Medications Amitriptyline HCl (Elavil) 50 mg DAILY PO Last administered on 07/09/18at 09:00; Admin Dose 50 MG; Start 07/05/18 at 09:00 Atorvastatin Calcium (Lipitor) 80 mg QHS PO Last administered on 07/08/18at 20:11; Admin Dose 80 MG; Start 07/05/18 at 21:00 Cyclobenzaprine HCl (Flexeril) 10 mg Q6H PO Last administered on 07/09/18at 05:14; Admin Dose 10 MG; Start 07/05/18 at 00:30 Docusate Sodium (Colace) 250 mg BID PO Last administered on 07/09/18at 09:00; Admin Dose 250 MG; Start 07/05/18 at 09:00 Duloxetine HCl (Cymbalta) 60 mg DAILY PO Last administered on 07/09/18 09:01; Admin Dose 60 MG; Start 07/05/18 at 09:00 Econazole Nitrate (Spectazole 1% Cr) 15 applic DAILY TOP Last administered on 07/09/18 08:59; Admin Dose 15 APPLIC; Start 07/05/18 at 09:00 EZETIMIBE (Zetia) 10 mg DAILY PO Last administered on 07/09/18 09:01; Admin Dose 10 MG; Start 07/05/18 at 09:00 Fluocinonide (Lidex 0.05% Cr) 1 applic DAILY TOP Last administered on 07/09/18 09:01; Admin Dose 1 APPLIC; Start 07/05/18 at 09:00 Insulin Aspart (Novolog Insulin Pen) 12 unit WITH MEALS SC Last administered on 07/09/18 08:27; Admin Dose 12 UNIT; Start 07/05/18 at 07:55 Sevelamer Carbonate (Renvela) 1.6 gm WITH MEALS PO Last administered on 07/09/18 09:00; Admin Dose 1.6 GM; Start 07/05/18 at 07:55 Fenofibrate (Tricor) 145 mg DAILY PO Last administered on 07/08/18 09:16; Admin Dose 145 MG; Start 07/05/18 at 09:00 Tamsulosin HCl (Flomax) 0.4 mg HS PO Last administered on 07/08/18 20:11; Admin Dose 0.4 MG; Start 07/05/18 at 21:00 Zolpidem Tartrate (Ambien) 10 mg HS PRN PO INSOMNIA; Start 07/05/18 at 01:00 Pregabalin (Lyrica) 50 mg BID PO Last administered on 07/09/18at 09:04; Admin Dose 50 MG; Start 07/05/18 at 09:00 Lactulose (Enulose) 10 gm DAILY PRN PO CONSTIPATION; Start 07/05/18 at 01:00 Ondansetron HCl (Zofran Tab) 8 mg Q6H PRN PO NAUSEA AND/OR VOMITING; Start 07/05/18 at 01:00 Albuterol/ Ipratropium (Duoneb) 3 ml Q8H RESP THERAPY PRN HHN SHORTNESS OF BREATH; Start 07/05/18 at 01:00 Acetaminophen (Tylenol Tab) 500 mg Q6H PRN PO MILD PAIN(1-3)OR ELEVATED TEMP; Start 07/05/18 at 01:00 Morphine Sulfate (morphine) 2 mg Q3 PRN IV SEVERE PAIN LEVEL 7-10 Last administered on 07/09/18 05:13; Admin Dose 2 MG; Start 07/05/18 at 01:00 Fluticasone/ Vilanterol (Breo Ellipta 100-25 Mcg Inh) 1 inh DAILY INH Last administered on 07/09/18 09:01; Admin Dose 1 INH; Start 07/05/18 at 09:00 Fish Oil (Fish Oil) 1,000 mg BID PO Last administered on 07/09/18 09:01; Admin Dose 1,000 MG; Start 07/05/18 at 09:00 Non-Formulary Medication 1 ea DAILY PO ; Start 07/05/18 at 09:00; Status UNV Non-Formulary Medication 1 ea HS SC ; Start 07/05/18 at 21:00; Status UNV Aspirin (Aspirin) 81 mg DAILY PO Last administered on 07/09/18 09:01; Admin Dose 81 MG; Start 07/07/18 at 09:00 Cefazolin Sodium 50 ml @ 100 mls/hr Q12 IVPB Last administered on 07/09/18 09:01; Admin Dose 100 MLS/HR; Start 07/06/18 at 21:00 Heparin Sodium (Porcine) (Heparin (1000 Units/ml)) 4,000 unit AFTER DIALYSIS CATHETER ; Start 07/08/18 at 16:30 Albumin Human 50 ml @ 100 mls/hr WITH DIALYSIS PRN IV SBP < 90 DURING DIALYSIS; Start 07/08/18 at 16:30 OLIVER MATTHEWS CHASER HELPER Jul 09, 2018 11:48
[2018-07-09] MEDS: FENOFIBRATE 145 MG TAB PO SCH (12:07)
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
[2018-07-09] MEDS: ALBUMIN HUMAN 25% 50 ML IV PRN (14:07)
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
[2018-07-09] MEDS ORDERED: PROMETHAZINE/DM (CUP) PO PRN (15:00)
--- NOTE | 2018-07-09 17:09 | CONS ---
Assessment/Plan Assessment/Plan Assessment/Plan (Daily) 63 m with complicated PMH as detailed below: * ESRD: scheduled for hd today. 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 monitor and albumin prn with hd * uncontrolled DM with diabetic neuropathy: cont iss * PAD s/p L fem bypass grafting 2011, occluded bypass on cath 07/06/18 * Afib: rate control per cardiology * CHF: cont aggressive UF as tolerated with hd. EF reportedly 20% * Morbid obesity : no change * s/p ICD placement Consultation Date/Type/Reason Admit Date/Time Jul 04, 2018 at 20:45 Initial Consult Date 07/06/18 Date/Time of Note DATE: 07/09/18 TIME: 17:07 24 HR Interval Summary Free Text/Dictation looks more comfortable. denies cp/ sob . more alert Exam/Review of Systems Exam Vitals Vital Signs Date Temp Pulse Resp B/P (MAP) Pulse Ox O2 O2 Flow FiO2 Time Delivery Rate 07/09/18 77 16:01 07/09/18 98.2 18 93/49 (64) 92 Nasal 15:52 Cannula 07/09/18 4.0 08:45 07/08/18 27 01:30 Intake and Output 07/08/18 07/08/18 07/09/18 1515:00 23:00 07:00 IntakeIntake Total 1000 ml 710 ml OutputOutput Total 0 ml 0 ml 0 ml BalanceBalance 1000 ml 710 ml 0 ml Constitutional: alert, frail Psych: no complaints Head: normocephalic Eyes: nl conjunctiva ENMT: nl external ears & nose Neck: supple, non-tender, jvd Respiratory: diminished breath sounds Cardiovascular: regular rate and rhythm, edema Gastrointestinal: soft Results Result Diagram: 07/09/18 0400 07/09/18 0400 Results 24hrs Laboratory Tests Test 07/08/18 17:23 07/08/18 20:09 07/09/18 04:00 07/09/18 08:20 Bedside Glucose 128 176 220 White Blood Count 8.0 Red Blood Count 3.17 L Hemoglobin 9.4 L Hematocrit 31.6 L Mean Corpuscular 99.7 Volume Mean Corpuscular 29.7 Hemoglobin Mean Corpuscular 29.7 L Hemoglobin Concent Red Cell 14.4 Distribution Width Platelet Count 245 Mean Platelet Volume 11.0 H Immature 1.000 H Granulocytes % Neutrophils % 70.7 Lymphocytes % 15.2 Monocytes % 7.8 Eosinophils % 4.6 Basophils % 0.7 Nucleated Red Blood 0.0 Cells % Immature 0.080 H Granulocytes # Neutrophils # 5.7 Lymphocytes # 1.2 Monocytes # 0.6 Eosinophils # 0.4 Basophils # 0.1 Nucleated Red Blood 0.0 Cells # Sodium Level 135 Potassium Level 4.7 Chloride Level 91 L Carbon Dioxide Level 30 Anion Gap 14 H Blood Urea Nitrogen 73 H Creatinine 6.30 H Est Glomerular 9 L Filtrat Rate mL/min Glucose Level 179 Calcium Level 8.8 Total Bilirubin 0.1 L Direct Bilirubin 0.00 Indirect Bilirubin 0.1 Aspartate Amino 27 Transf (AST/SGOT) Alanine 6 L Aminotransferase (AL T/SGPT) Alkaline Phosphatase 88 Total Protein 7.0 Albumin 3.8 Globulin 3.20 Albumin/Globulin 1.18 Ratio Test 07/09/18 12:04 Bedside Glucose 116 Medications Medication Current Medications Amitriptyline HCl (Elavil) 50 mg DAILY PO Last administered on 07/09/18 09:00; Admin Dose 50 MG; Start 07/05/18 at 09:00 Atorvastatin Calcium (Lipitor) 80 mg QHS PO Last administered on 07/08/18at 20:11; Admin Dose 80 MG; Start 07/05/18 at 21:00 Cyclobenzaprine HCl (Flexeril) 10 mg Q6H PO Last administered on 07/09/18at 12:08; Admin Dose 10 MG; Start 07/05/18 at 00:30 Docusate Sodium (Colace) 250 mg BID PO Last administered on 07/09/18at 09:00; Admin Dose 250 MG; Start 07/05/18 at 09:00 Duloxetine HCl (Cymbalta) 60 mg DAILY PO Last administered on 07/09/18at 09:01; Admin Dose 60 MG; Start 07/05/18 at 09:00 Econazole Nitrate (Spectazole 1% Cr) 15 applic DAILY TOP Last administered on 07/09/18at 08:59; Admin Dose 15 APPLIC; Start 07/05/18 at 09:00 EZETIMIBE (Zetia) 10 mg DAILY PO Last administered on 07/09/18 09:01; Admin Dose 10 MG; Start 07/05/18 at 09:00 Fluocinonide (Lidex 0.05% Cr) 1 applic DAILY TOP Last administered on 07/09/18 09:01; Admin Dose 1 APPLIC; Start 07/05/18 at 09:00 Insulin Aspart (Novolog Insulin Pen) 12 unit WITH MEALS SC Last administered on 07/09/18 12:11; Admin Dose 12 UNIT; Start 07/05/18 at 07:55 Sevelamer Carbonate (Renvela) 1.6 gm WITH MEALS PO Last administered on 07/09/18 12:07; Admin Dose 1.6 GM; Start 07/05/18 at 07:55 Fenofibrate (Tricor) 145 mg DAILY PO Last administered on 07/09/18 12:07; Admin Dose 145 MG; Start 07/05/18 at 09:00 Tamsulosin HCl (Flomax) 0.4 mg HS PO Last administered on 07/08/18at 20:11; Admin Dose 0.4 MG; Start 07/05/18 at 21:00 Zolpidem Tartrate (Ambien) 10 mg HS PRN PO INSOMNIA; Start 07/05/18 at 01:00 Pregabalin (Lyrica) 50 mg BID PO Last administered on 07/09/18 09:04; Admin Dose 50 MG; Start 07/05/18 at 09:00 Lactulose (Enulose) 10 gm DAILY PRN PO CONSTIPATION; Start 07/05/18 at 01:00 Ondansetron HCl (Zofran Tab) 8 mg Q6H PRN PO NAUSEA AND/OR VOMITING; Start 07/05/18 at 01:00 Albuterol/ Ipratropium (Duoneb) 3 ml Q8H RESP THERAPY PRN HHN SHORTNESS OF BREATH; Start 07/05/18 at 01:00 Acetaminophen (Tylenol Tab) 500 mg Q6H PRN PO MILD PAIN(1-3)OR ELEVATED TEMP; Start 07/05/18 at 01:00 Morphine Sulfate (morphine) 2 mg Q3 PRN IV SEVERE PAIN LEVEL 7-10 Last administered on 07/09/18 12:14; Admin Dose 2 MG; Start 07/05/18 at 01:00 Fluticasone/ Vilanterol (Breo Ellipta 100-25 Mcg Inh) 1 inh DAILY INH Last administered on 07/09/18at 09:01; Admin Dose 1 INH; Start 07/05/18 at 09:00 Fish Oil (Fish Oil) 1,000 mg BID PO Last administered on 07/09/18 09:01; Admin Dose 1,000 MG; Start 07/05/18 at 09:00 Promethazine HCl/ Dextromethorphan (Phenergan-Dm) 5 ml Q4H PRN PO COUGH; Start 07/09/18 at 15:00 Aspirin (Aspirin) 81 mg DAILY PO Last administered on 07/09/18 09:01; Admin Dose 81 MG; Start 07/07/18 at 09:00 Heparin Sodium (Porcine) (Heparin (1000 Units/ml)) 4,000 unit AFTER DIALYSIS CATHETER ; Start 07/08/18 at 16:30 Albumin Human 50 ml @ 100 mls/hr WITH DIALYSIS PRN IV SBP < 90 DURING DIALYSIS Last administered on 07/09/18at 14:07; Admin Dose 100 MLS/HR; Start 07/08/18 at 16:30 Insulin Glargine (Lantus) 38 units QHS SC ; Start 07/09/18 at 21:00 LALITHA BENAVIDES MD Jul 09, 2018 17:09
[2018-07-09] MEDS: TAMSULOSIN (SR) 0.4 MG CAP PO SCH (21:07)
[2018-07-09] MEDS: ATORVASTATIN 80 MG TAB PO SCH (21:08)
[2018-07-09] MEDS: INSULIN GLARGINE [LANTus] (100 UNITS/ML) SYG SC SCH (21:12)
[2018-07-10] VITALS (12 sets, daily range): BP systolic 124–150; BP diastolic 54–67; PULSE 76–125; RESP 18–20
[2018-07-10] MEDS: morphine 2 MG INJ IV PRN ×3 (02:57→23:52)
[2018-07-10] MEDS: CYCLOBENZAPRINE 10 MG TAB PO SCH ×3 (05:34→17:44)
[2018-07-10] MEDS: SEVELAMER CARBONATE 0.8 GM PKT PO SCH ×3 (08:14→17:43)
[2018-07-10] MEDS: DOCUSATE SODIUM 250 MG CAP PO SCH ×2 (08:14→21:56)
[2018-07-10] MEDS: EZETIMIBE 10 MG TAB PO SCH (08:14)
[2018-07-10] MEDS: FENOFIBRATE 145 MG TAB PO SCH (08:14)
[2018-07-10] MEDS: AMITRIPTYLINE 50 MG TAB PO SCH (08:14)
[2018-07-10] MEDS: FISH OIL 1,000 MG CAP PO SCH ×2 (08:15→21:56)
[2018-07-10] MEDS: FLUTICASONE/VILANTEROL 100-25 INH SCH (08:15)
[2018-07-10] MEDS: FLUOCINONIDE 0.05% CR 30GM TUBE TOP SCH (08:15)
[2018-07-10] MEDS: DULOXETINE 30 MG CAP DR PO SCH (08:15)
[2018-07-10] MEDS: ECONAZOLE TOP SCH (08:15)
[2018-07-10] MEDS: ASPIRIN 81 MG TAB PO SCH (08:15)
--- NOTE | 2018-07-10 08:16 | CONS ---
Assessment/Plan Assessment/Plan Assessment/Plan (Daily) 1. CKD with next HD planned tomm 2. BP is controlled 3. 3 Vessel CAD, await Cardiac surgery eval 4. Cellulitis and burn to left foot resolved Consultation Date/Type/Reason Admit Date/Time Jul 04, 2018 at 20:45 Initial Consult Date 07/05/18 Date/Time of Note DATE: 07/10/18 TIME: 08:14 Detailed Summary Respiratory: No shortness of breath Cardiovascular: No chest pain Gastrointestinal: no complaints Genitourinary: no complaints Exam/Review of Systems Exam Vitals Vital Signs Date Temp Pulse Resp B/P (MAP) Pulse Ox O2 O2 Flow FiO2 Time Delivery Rate 07/10/18 98.3 84 20 137/63 98 07:12 (87) 07/10/18 Nasal 04:22 Cannula 07/10/18 3.0 01:54 07/08/18 27 01:30 Intake and Output 07/09/18 07/09/18 07/10/18 1414:59 22:59 06:59 IntakeIntake Total 450 ml 571 ml OutputOutput Total 5300 ml BalanceBalance -4850 ml 571 ml Neck: No jvd Respiratory: clear to auscultation, diminished breath sounds Cardiovascular: regular rate and rhythm Gastrointestinal: soft Results Result Diagram: 07/10/18 0650 07/10/18 0650 Results 24hrs Laboratory Tests Test 07/09/18 08:20 07/09/18 12:04 07/09/18 17:11 07/09/18 21:06 Bedside Glucose 220 116 124 119 Test 07/10/18 06:50 White Blood Count 9.0 Red Blood Count 3.39 L Hemoglobin 10.1 L Hematocrit 33.9 L Mean Corpuscular 100.0 Volume Mean Corpuscular 29.8 Hemoglobin Mean Corpuscular 29.8 L Hemoglobin Concent Red Cell 14.5 Distribution Width Platelet Count 254 Mean Platelet Volume 10.5 H Immature 1.100 H Granulocytes % Neutrophils % 75.6 Lymphocytes % 11.1 L Monocytes % 8.2 Eosinophils % 3.4 Basophils % 0.6 Nucleated Red Blood 0.0 Cells % Immature 0.100 H Granulocytes # Neutrophils # 6.8 Lymphocytes # 1.0 Monocytes # 0.7 Eosinophils # 0.3 Basophils # 0.1 Nucleated Red Blood 0.0 Cells # Sodium Level 137 Potassium Level 4.6 Chloride Level 96 L Carbon Dioxide Level 28 Anion Gap 13 Blood Urea Nitrogen 55 H Creatinine 5.45 H Est Glomerular 11 L Filtrat Rate mL/min Glucose Level 114 # Calcium Level 9.6 Total Bilirubin 0.2 Direct Bilirubin 0.00 Indirect Bilirubin 0.2 Aspartate Amino 28 Transf (AST/SGOT) Alanine < 6 L Aminotransferase (AL T/SGPT) Alkaline Phosphatase 89 Total Protein 7.7 Albumin 4.0 Globulin 3.70 H Albumin/Globulin 1.08 Ratio Medications Medication Current Medications Amitriptyline HCl (Elavil) 50 mg DAILY PO Last administered on 07/09/18 09:00; Admin Dose 50 MG; Start 07/05/18 at 09:00 Atorvastatin Calcium (Lipitor) 80 mg QHS PO Last administered on 07/09/18 21:08; Admin Dose 80 MG; Start 07/05/18 at 21:00 Cyclobenzaprine HCl (Flexeril) 10 mg Q6H PO Last administered on 07/10/18 05:34; Admin Dose 10 MG; Start 07/05/18 at 00:30 Docusate Sodium (Colace) 250 mg BID PO Last administered on 07/09/18 21:08; Admin Dose 250 MG; Start 07/05/18 at 09:00 Duloxetine HCl (Cymbalta) 60 mg DAILY PO Last administered on 07/09/18 09:01; Admin Dose 60 MG; Start 07/05/18 at 09:00 Econazole Nitrate (Spectazole 1% Cr) 15 applic DAILY TOP Last administered on 07/09/18 08:59; Admin Dose 15 APPLIC; Start 07/05/18 at 09:00 EZETIMIBE (Zetia) 10 mg DAILY PO Last administered on 07/09/18 09:01; Admin Dose 10 MG; Start 07/05/18 at 09:00 Fluocinonide (Lidex 0.05% Cr) 1 applic DAILY TOP Last administered on 07/09/18 09:01; Admin Dose 1 APPLIC; Start 07/05/18 at 09:00 Insulin Aspart (Novolog Insulin Pen) 12 unit WITH MEALS SC Last administered on 07/09/18at 17:25; Admin Dose 12 UNIT; Start 07/05/18 at 07:55 Sevelamer Carbonate (Renvela) 1.6 gm WITH MEALS PO Last administered on 07/09/18at 17:19; Admin Dose 1.6 GM; Start 07/05/18 at 07:55 Fenofibrate (Tricor) 145 mg DAILY PO Last administered on 07/09/18at 12:07; Admin Dose 145 MG; Start 07/05/18 at 09:00 Tamsulosin HCl (Flomax) 0.4 mg HS PO Last administered on 07/09/18at 21:07; Admin Dose 0.4 MG; Start 07/05/18 at 21:00 Zolpidem Tartrate (Ambien) 10 mg HS PRN PO INSOMNIA; Start 07/05/18 at 01:00 Pregabalin (Lyrica) 50 mg BID PO Last administered on 07/09/18at 21:08; Admin Dose 50 MG; Start 07/05/18 at 09:00 Lactulose (Enulose) 10 gm DAILY PRN PO CONSTIPATION; Start 07/05/18 at 01:00 Ondansetron HCl (Zofran Tab) 8 mg Q6H PRN PO NAUSEA AND/OR VOMITING; Start 07/05/18 at 01:00 Albuterol/ Ipratropium (Duoneb) 3 ml Q8H RESP THERAPY PRN HHN SHORTNESS OF BREATH; Start 07/05/18 at 01:00 Acetaminophen (Tylenol Tab) 500 mg Q6H PRN PO MILD PAIN(1-3)OR ELEVATED TEMP; Start 07/05/18 at 01:00 Morphine Sulfate (morphine) 2 mg Q3 PRN IV SEVERE PAIN LEVEL 7-10 Last administered on 07/10/18at 07:58; Admin Dose 2 MG; Start 07/05/18 at 01:00 Fluticasone/ Vilanterol (Breo Ellipta 100-25 Mcg Inh) 1 inh DAILY INH Last administered on 07/09/18at 09:01; Admin Dose 1 INH; Start 07/05/18 at 09:00 Fish Oil (Fish Oil) 1,000 mg BID PO Last administered on 07/09/18at 21:07; Admin Dose 1,000 MG; Start 07/05/18 at 09:00 Promethazine HCl/ Dextromethorphan (Phenergan-Dm) 5 ml Q4H PRN PO COUGH; Start 07/09/18 at 15:00 Aspirin (Aspirin) 81 mg DAILY PO Last administered on 07/09/18at 09:01; Admin Dose 81 MG; Start 07/07/18 at 09:00 Heparin Sodium (Porcine) (Heparin (1000 Units/ml)) 4,000 unit AFTER DIALYSIS CATHETER ; Start 07/08/18 at 16:30 Albumin Human 50 ml @ 100 mls/hr WITH DIALYSIS PRN IV SBP < 90 DURING DIALYSIS Last administered on 07/09/18at 14:07; Admin Dose 100 MLS/HR; Start 07/08/18 at 16:30 Insulin Glargine (Lantus) 38 units QHS SC Last administered on 07/09/18at 21:12; Admin Dose 38 UNITS; Start 07/09/18 at 21:00 SALBADOR SHIRLEY MD Jul 10, 2018 08:16
[2018-07-10] MEDS: INSULIN ASPART [NOVOLOG] 3 ML PEN SC SCH ×3 (08:19→17:44)
[2018-07-10] MEDS: PREGABALIN 50 MG CAP PO SCH ×2 (08:19→21:56)
--- NOTE | 2018-07-10 08:21 | CONS ---
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 In setting of DM, cardiomyopathy, and three vessel CAD, CABG is appropriate. Awaiting surgical decision Hypotension:Resolved Neck pain: may be musculoskeletal. Improved Chronic systolic heart failure: currently euvolemic Ischemic cardiomyopathy EF 20% prior report but echo here shows EF 35-40% s/p ICD for secondary prevention Paroxysmal atrial fibrillation Severe PAD s/p prior bypass: occluded bypass on cath 07/06/18 s/p right transmetatarsal amputation ESRD on HD Uncontrolled DM HTN COPD Burn wound/cellulitis depression Likely noncompliance -I will contact cardiac surgery for timing of CABG -ASA -continue to hold plavix -continue to hold Eliquis -hold coreg and benazepril 10mg -lasix 80mg PO BID was d/c-ed -lipitor 80mg, zetia -HD per nephrology Consultation Date/Type/Reason Admit Date/Time Jul 04, 2018 at 20:45 Initial Consult Date 07/05/18 Type of Consult Cardiology Date/Time of Note DATE: 07/10/18 TIME: 08:19 24 HR Interval Summary Free Text/Dictation No events. Neck pain improved. No chest pain. Exam/Review of Systems Vital Signs Vitals Vital Signs Date Temp Pulse Resp B/P (MAP) Pulse Ox O2 O2 Flow FiO2 Time Delivery Rate 07/10/18 98.3 84 20 137/63 98 07:12 (87) 07/10/18 Nasal 04:22 Cannula 07/10/18 3.0 01:54 07/08/18 27 01:30 Intake and Output 07/09/18 07/09/18 07/10/18 1515:00 23:00 07:00 IntakeIntake Total 450 ml 571 ml OutputOutput Total 5300 ml BalanceBalance -4850 ml 571 ml Exam Constitutional: alert, oriented Head: normocephalic, atraumatic Neck: No jvd Respiratory: diminished breath sounds; No clear to auscultation Cardiovascular: regular rate and rhythm; No edema Gastrointestinal: soft, non-tender; No distended Neurological: nl mental status, nl speech Labs Result Diagram: 07/10/18 0650 07/10/18 0650 Results 24hrs Laboratory Tests Test 07/09/18 08:20 07/09/18 12:04 07/09/18 17:11 07/09/18 21:06 Bedside Glucose 220 116 124 119 Test 07/10/18 06:50 07/10/18 07:57 White Blood Count 9.0 Red Blood Count 3.39 L Hemoglobin 10.1 L Hematocrit 33.9 L Mean Corpuscular 100.0 Volume Mean Corpuscular 29.8 Hemoglobin Mean Corpuscular 29.8 L Hemoglobin Concent Red Cell 14.5 Distribution Width Platelet Count 254 Mean Platelet Volume 10.5 H Immature 1.100 H Granulocytes % Neutrophils % 75.6 Lymphocytes % 11.1 L Monocytes % 8.2 Eosinophils % 3.4 Basophils % 0.6 Nucleated Red Blood 0.0 Cells % Immature 0.100 H Granulocytes # Neutrophils # 6.8 Lymphocytes # 1.0 Monocytes # 0.7 Eosinophils # 0.3 Basophils # 0.1 Nucleated Red Blood 0.0 Cells # Sodium Level 137 Potassium Level 4.6 Chloride Level 96 L Carbon Dioxide Level 28 Anion Gap 13 Blood Urea Nitrogen 55 H Creatinine 5.45 H Est Glomerular 11 L Filtrat Rate mL/min Glucose Level 114 # Calcium Level 9.6 Total Bilirubin 0.2 Direct Bilirubin 0.00 Indirect Bilirubin 0.2 Aspartate Amino 28 Transf (AST/SGOT) Alanine < 6 L Aminotransferase (AL T/SGPT) Alkaline Phosphatase 89 Total Protein 7.7 Albumin 4.0 Globulin 3.70 H Albumin/Globulin 1.08 Ratio Bedside Glucose 121 Medications Medications Current Medications Amitriptyline HCl (Elavil) 50 mg DAILY PO Last administered on 07/09/18at 09:00; Admin Dose 50 MG; Start 07/05/18 at 09:00 Atorvastatin Calcium (Lipitor) 80 mg QHS PO Last administered on 07/09/18at 21:08; Admin Dose 80 MG; Start 07/05/18 at 21:00 Cyclobenzaprine HCl (Flexeril) 10 mg Q6H PO Last administered on 07/10/18at 05:34; Admin Dose 10 MG; Start 07/05/18 at 00:30 Docusate Sodium (Colace) 250 mg BID PO Last administered on 07/09/18at 21:08; Admin Dose 250 MG; Start 07/05/18 at 09:00 Duloxetine HCl (Cymbalta) 60 mg DAILY PO Last administered on 07/09/18 09:01; Admin Dose 60 MG; Start 07/05/18 at 09:00 Econazole Nitrate (Spectazole 1% Cr) 15 applic DAILY TOP Last administered on 07/09/18at 08:59; Admin Dose 15 APPLIC; Start 07/05/18 at 09:00 EZETIMIBE (Zetia) 10 mg DAILY PO Last administered on 07/09/18 09:01; Admin Dose 10 MG; Start 07/05/18 at 09:00 Fluocinonide (Lidex 0.05% Cr) 1 applic DAILY TOP Last administered on 07/09/18 09:01; Admin Dose 1 APPLIC; Start 07/05/18 at 09:00 Insulin Aspart (Novolog Insulin Pen) 12 unit WITH MEALS SC Last administered on 07/09/18 17:25; Admin Dose 12 UNIT; Start 07/05/18 at 07:55 Sevelamer Carbonate (Renvela) 1.6 gm WITH MEALS PO Last administered on 07/09/18 17:19; Admin Dose 1.6 GM; Start 07/05/18 at 07:55 Fenofibrate (Tricor) 145 mg DAILY PO Last administered on 07/09/18 12:07; Admin Dose 145 MG; Start 07/05/18 at 09:00 Tamsulosin HCl (Flomax) 0.4 mg HS PO Last administered on 07/09/18 21:07; Admin Dose 0.4 MG; Start 07/05/18 at 21:00 Zolpidem Tartrate (Ambien) 10 mg HS PRN PO INSOMNIA; Start 07/05/18 at 01:00 Pregabalin (Lyrica) 50 mg BID PO Last administered on 07/09/18at 21:08; Admin Dose 50 MG; Start 07/05/18 at 09:00 Lactulose (Enulose) 10 gm DAILY PRN PO CONSTIPATION; Start 07/05/18 at 01:00 Ondansetron HCl (Zofran Tab) 8 mg Q6H PRN PO NAUSEA AND/OR VOMITING; Start 07/05/18 at 01:00 Albuterol/ Ipratropium (Duoneb) 3 ml Q8H RESP THERAPY PRN HHN SHORTNESS OF BREATH; Start 07/05/18 at 01:00 Acetaminophen (Tylenol Tab) 500 mg Q6H PRN PO MILD PAIN(1-3)OR ELEVATED TEMP; Start 07/05/18 at 01:00 Morphine Sulfate (morphine) 2 mg Q3 PRN IV SEVERE PAIN LEVEL 7-10 Last administered on 07/10/18at 07:58; Admin Dose 2 MG; Start 07/05/18 at 01:00 Fluticasone/ Vilanterol (Breo Ellipta 100-25 Mcg Inh) 1 inh DAILY INH Last administered on 07/09/18 09:01; Admin Dose 1 INH; Start 07/05/18 at 09:00 Fish Oil (Fish Oil) 1,000 mg BID PO Last administered on 07/09/18 21:07; Admin Dose 1,000 MG; Start 07/05/18 at 09:00 Promethazine HCl/ Dextromethorphan (Phenergan-Dm) 5 ml Q4H PRN PO COUGH; Start 07/09/18 at 15:00 Aspirin (Aspirin) 81 mg DAILY PO Last administered on 07/09/18 09:01; Admin Dose 81 MG; Start 07/07/18 at 09:00 Heparin Sodium (Porcine) (Heparin (1000 Units/ml)) 4,000 unit AFTER DIALYSIS CATHETER ; Start 07/08/18 at 16:30 Albumin Human 50 ml @ 100 mls/hr WITH DIALYSIS PRN IV SBP < 90 DURING DIALYSIS Last administered on 07/09/18at 14:07; Admin Dose 100 MLS/HR; Start 07/08/18 at 16:30 Insulin Glargine (Lantus) 38 units QHS SC Last administered on 07/09/18at 21:12; Admin Dose 38 UNITS; Start 07/09/18 at 21:00 TAHIRA BUCHANAN Jul 10, 2018 08:21
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
--- NOTE | 2018-07-10 15:31 | PN ---
Date/Time of Note Date/Time of Note DATE: 07/10/18 TIME: 15:29 Assessment/Plan Lines/Catheters IV Catheter Type (from [facility]): Central Line Raymundo in Place (from [facility]): No Assessment/Plan Assessment/Plan 63 year old with multiple medical problems, PVD with previous LE bypasses, TMAs, with ischemic cardiomyopathy and recent cath showing ostial Cx and LAD disease. He is a very poor candidate for surgical revascularization and his STS risk of mortality is over 7%. I would recommend high risk PCI at tertiary center. Exam/Review of Systems Vital Signs Vitals Vital Signs Date Temp Pulse Resp B/P (MAP) Pulse Ox O2 O2 Flow FiO2 Time Delivery Rate 07/10/18 85 12:01 07/10/18 98.8 20 124/54 98 11:57 (77) 07/10/18 Nasal 4.0 08:15 Cannula 07/08/18 27 01:30 Intake and Output 07/09/18 07/09/18 07/10/18 1515:00 23:00 07:00 IntakeIntake Total 450 ml 571 ml OutputOutput Total 5300 ml BalanceBalance -4850 ml 571 ml Results Result Diagram: 07/10/18 0650 07/10/18 0650 NEELAM NORIEGA MD Jul 10, 2018 15:31
--- NOTE | 2018-07-10 20:52 | CONS ---
Assessment/Plan Assessment/Plan Assessment/Plan (Daily) The pt has 3 VD CAD, PAD HTN ICD in situ HLD The pt will need higher level of care -- the family wants it at [facility] Consultation Date/Type/Reason Admit Date/Time Jul 04, 2018 at 20:45 Type of Consult Cardiology Date/Time of Note DATE: 07/10/18 TIME: 20:47 Hx of [address] Lim and the family called The pt is well known to me. he is status post Cardiac Cath Dr. Lim mentioned and recommended for the pt to have stents at a higher level of care hospital The family understands and wants it at [facility] Past Medical History Home Meds Reported Medications Econazole Nitrate (Econazole Nitrate) 15 Gm Cream..g., 15 GM TP 06/12/18 Ezetimibe* (Zetia*) 10 Mg Tablet, 10 MG PO, TAB 06/12/18 Ondansetron Hcl* (Ondansetron Hcl*) 8 Mg Tablet, 8 MG PO, TAB 06/12/18 Fluocinonide* (Fluocinonide* Cream) 0.1% - 120 Gm Cream..g., 1 APPLIC TOP, TUB 06/12/18 Ipratropium [place]* (Atrovent HFA*) 12.9 Gm Aer.w.adap, 2 PUFF INHALATION for SHORTNESS OF BREATH, #1 INHALER 06/12/18 Metolazone* (Metolazone*) 10 Mg Tablet, 10 MG PO, TAB 06/12/18 Promethazine/Phenyleph/Codeine (Qkxprdeofmcf-YL-Dykojzb Syrup) 118 Ml Syrup, 118 ML PO 06/12/18 Amitriptyline Hcl* (Amitriptyline Hcl*) 50 Mg Tablet, 50 MG PO, #30 TAB 06/12/18 Duloxetine Hcl* (Duloxetine Hcl*) 60 Mg Capsule.dr, 60 MG PO, #30 CAP 06/12/18 Icosapent Ethyl (VASCEPA) 1 Gm Capsule, 1 GM PO, CAP 06/12/18 Benazepril Hcl* (Benazepril Hcl*) 10 Mg Tablet, 10 MG PO, #60 TAB 06/12/18 Budesonide-Formoterol Fumarate* (Symbicort*) 80-4.5 Mcg Hfa.aer.ad, 2 PUFF INHALATION, BOTTLE 06/12/18 Lactulose* (Lactulose*) 10 Gm/15 Ml Solution, 10 GM PO, ML 06/12/18 Furosemide* (Furosemide*) 80 Mg Tablet, 80 MG PO BID, #60 TAB 04/19/18 Sevelamer Carbonate* (Renvela*) 800 Mg Tablet, 1.6 GM PO WITH MEALS, TAB 03/05/18 Metoprolol Succinate* (Toprol XL*) 50 Mg Tab.er.24h, 50 MG PO DAILY, #30 TAB 03/05/18 Insulin Degludec (Tresiba Flextouch U-100) 100 Unit/1 Ml Insuln.pen, 40 UNIT SQ QHS 03/05/18 Insulin Aspart* (Novolog Insulin Pen*) 100 Unit/Ml Soln, 12 UNIT SC WITH MEALS, EA 03/05/18 Esomeprazole Mag Trihydrate (Nexium) 40 Mg Capsule.dr, 40 MG PO DAILY, #30 CAP 03/05/18 Docusate Sodium* (Colace*) 250 Mg Capsule, 250 MG PO BID, #60 CAP 03/05/18 Cyclobenzaprine Hcl* (Cyclobenzaprine Hcl*) 10 Mg Tablet, 10 MG PO Q6H, #60 TAB 03/05/18 Clopidogrel Bisulfate (Clopidogrel) 75 Mg Tablet, 75 MG PO DAILY, #30 TAB 03/05/18 Atorvastatin* (Atorvastatin*) 80 Mg Tablet, 80 MG PO QHS, #30 TAB 03/05/18 Aspirin* (Aspirin* EC) 81 Mg Tablet.dr, 81 MG PO DAILY, TAB 03/05/18 Apixaban* (Eliquis*) 2.5 Mg Tablet, 2.5 MG PO BID, TAB 03/05/18 Discontinued Reported Medications Fluocinonide* (Fluocinonide* Cream) 0.1% - 120 Gm Cream..g., 1 APPLIC TOP, TUB 06/12/18 Pregabalin* (Lyrica*) 50 Mg Capsule, 50 MG PO BID, CAP 03/05/18 Omeprazole* (Omeprazole*) 40 Mg Capsule.dr, 40 MG PO DAILY, #30 CAP 03/05/18 Zolpidem Tartrate* (Ambien*) 10 Mg Tablet, 10 MG PO QHS PRN for INSOMNIA, TAB 12/16/18 Tamsulosin Hcl* (Tamsulosin Hcl*) 0.4 Mg Cap.er.24h, 0.4 MG PO HS, CAP 03/05/18 Fenofibrate Nanocrystallized* (Fenofibrate*) 145 Mg Tablet, 145 MG PO DAILY, TAB 03/05/18 Duloxetine Hcl* (Cymbalta*) 60 Mg Capsule.dr, 60 MG PO DAILY, CAP 03/05/18 Carvedilol* (Carvedilol*) 12.5 Mg Tablet, 12.5 MG PO DAILY, #60 TAB 03/05/18 Medications Current Medications Amitriptyline HCl (Elavil) 50 mg DAILY PO Last administered on 07/10/18 08:14; Admin Dose 50 MG; Start 07/05/18 at 09:00 Atorvastatin Calcium (Lipitor) 80 mg QHS PO Last administered on 07/09/18at 21:08; Admin Dose 80 MG; Start 07/05/18 at 21:00 Cyclobenzaprine HCl (Flexeril) 10 mg Q6H PO Last administered on 07/10/18at 17:44; Admin Dose 10 MG; Start 07/05/18 at 00:30 Docusate Sodium (Colace) 250 mg BID PO Last administered on 07/10/18 08:14; Admin Dose 250 MG; Start 07/05/18 at 09:00 Duloxetine HCl (Cymbalta) 60 mg DAILY PO Last administered on 07/10/18 08:15; Admin Dose 60 MG; Start 07/05/18 at 09:00 Econazole Nitrate (Spectazole 1% Cr) 15 applic DAILY TOP Last administered on 07/10/18at 08:15; Admin Dose 15 APPLIC; Start 07/05/18 at 09:00 EZETIMIBE (Zetia) 10 mg DAILY PO Last administered on 07/10/18 08:14; Admin Dose 10 MG; Start 07/05/18 at 09:00 Fluocinonide (Lidex 0.05% Cr) 1 applic DAILY TOP Last administered on 07/10/18 08:15; Admin Dose 1 APPLIC; Start 07/05/18 at 09:00 Insulin Aspart (Novolog Insulin Pen) 12 unit WITH MEALS SC Last administered on 07/10/18at 08:19; Admin Dose 12 UNIT; Start 07/05/18 at 07:55 Sevelamer Carbonate (Renvela) 1.6 gm WITH MEALS PO Last administered on 07/10/18 17:43; Admin Dose 1.6 GM; Start 07/05/18 at 07:55 Fenofibrate (Tricor) 145 mg DAILY PO Last administered on 07/10/18at 08:14; Admin Dose 145 MG; Start 07/05/18 at 09:00 Tamsulosin HCl (Flomax) 0.4 mg HS PO Last administered on 07/09/18at 21:07; Admin Dose 0.4 MG; Start 07/05/18 at 21:00 Zolpidem Tartrate (Ambien) 10 mg HS PRN PO INSOMNIA; Start 07/05/18 at 01:00 Pregabalin (Lyrica) 50 mg BID PO Last administered on 07/10/18 08:19; Admin Dose 50 MG; Start 07/05/18 at 09:00 Lactulose (Enulose) 10 gm DAILY PRN PO CONSTIPATION; Start 07/05/18 at 01:00 Ondansetron HCl (Zofran Tab) 8 mg Q6H PRN PO NAUSEA AND/OR VOMITING; Start 07/05/18 at 01:00 Albuterol/ Ipratropium (Duoneb) 3 ml Q8H RESP THERAPY PRN HHN SHORTNESS OF BREATH; Start 07/05/18 at 01:00 Acetaminophen (Tylenol Tab) 500 mg Q6H PRN PO MILD PAIN(1-3)OR ELEVATED TEMP; Start 07/05/18 at 01:00 Morphine Sulfate (morphine) 2 mg Q3 PRN IV SEVERE PAIN LEVEL 7-10 Last administered on 07/10/18at 07:58; Admin Dose 2 MG; Start 07/05/18 at 01:00 Fluticasone/ Vilanterol (Breo Ellipta 100-25 Mcg Inh) 1 inh DAILY INH Last administered on 07/10/18 08:15; Admin Dose 1 INH; Start 07/05/18 at 09:00 Fish Oil (Fish Oil) 1,000 mg BID PO Last administered on 07/10/18at 08:15; Admin Dose 1,000 MG; Start 07/05/18 at 09:00 Promethazine HCl/ Dextromethorphan (Phenergan-Dm) 5 ml Q4H PRN PO COUGH; Start 07/09/18 at 15:00 Aspirin (Aspirin) 81 mg DAILY PO Last administered on 07/10/18at 08:15; Admin Dose 81 MG; Start 07/07/18 at 09:00 Heparin Sodium (Porcine) (Heparin (1000 Units/ml)) 4,000 unit AFTER DIALYSIS CATHETER ; Start 07/08/18 at 16:30 Albumin Human 50 ml @ 100 mls/hr WITH DIALYSIS PRN IV SBP < 90 DURING DIALYSIS Last administered on 07/09/18at 14:07; Admin Dose 100 MLS/HR; Start 07/08/18 at 16:30 Insulin Glargine (Lantus) 38 units QHS SC Last administered on 07/09/18at 21:12; Admin Dose 38 UNITS; Start 07/09/18 at 21:00 Allergies: Coded Allergies: No Known Allergies (Unverified Allergy, Mild, 07/04/18) Past Surgical History Past Surgical Hx: noncontributory, coronary bypass surgery, endoscopy, other Social History Alcohol Use: none Smoking Status: Former smoker Drug Use: none, other (High probability of being addicted to the opioids.) Exam/Review of Systems Vital Signs Vitals Vital Signs Date Temp Pulse Resp B/P (MAP) Pulse Ox O2 O2 Flow FiO2 Time Delivery Rate 07/10/18 98.0 82 18 149/67 97 20:20 (94) 07/10/18 3.0 16:21 07/10/18 Nasal 08:15 Cannula 07/08/18 27 01:30 Intake and Output 07/09/18 07/09/18 07/10/18 1515:00 23:00 07:00 IntakeIntake Total 450 ml 571 ml OutputOutput Total 5300 ml BalanceBalance -4850 ml 571 ml Labs Result Diagram: 07/10/18 0650 07/10/18 0650 Results 24hrs Laboratory Tests Test 07/09/18 21:06 07/10/18 06:50 07/10/18 07:57 07/10/18 11:41 Bedside Glucose 119 121 77 White Blood Count 9.0 Red Blood Count 3.39 L Hemoglobin 10.1 L Hematocrit 33.9 L Mean Corpuscular 100.0 Volume Mean Corpuscular 29.8 Hemoglobin Mean Corpuscular 29.8 L Hemoglobin Concent Red Cell 14.5 Distribution Width Platelet Count 254 Mean Platelet Volume 10.5 H Immature 1.100 H Granulocytes % Neutrophils % 75.6 Lymphocytes % 11.1 L Monocytes % 8.2 Eosinophils % 3.4 Basophils % 0.6 Nucleated Red Blood 0.0 Cells % Immature 0.100 H Granulocytes # Neutrophils # 6.8 Lymphocytes # 1.0 Monocytes # 0.7 Eosinophils # 0.3 Basophils # 0.1 Nucleated Red Blood 0.0 Cells # Sodium Level 137 Potassium Level 4.6 Chloride Level 96 L Carbon Dioxide Level 28 Anion Gap 13 Blood Urea Nitrogen 55 H Creatinine 5.45 H Est Glomerular 11 L Filtrat Rate mL/min Glucose Level 114 # Calcium Level 9.6 Total Bilirubin 0.2 Direct Bilirubin 0.00 Indirect Bilirubin 0.2 Aspartate Amino 28 Transf (AST/SGOT) Alanine < 6 L Aminotransferase (AL T/SGPT) Alkaline Phosphatase 89 Total Protein 7.7 Albumin 4.0 Globulin 3.70 H Albumin/Globulin 1.08 Ratio Test 07/10/18 17:17 Bedside Glucose 81 Medications Medications Current Medications Amitriptyline HCl (Elavil) 50 mg DAILY PO Last administered on 07/10/18 08:14; Admin Dose 50 MG; Start 07/05/18 at 09:00 Atorvastatin Calcium (Lipitor) 80 mg QHS PO Last administered on 07/09/18 21:08; Admin Dose 80 MG; Start 07/05/18 at 21:00 Cyclobenzaprine HCl (Flexeril) 10 mg Q6H PO Last administered on 07/10/18 17:44; Admin Dose 10 MG; Start 07/05/18 at 00:30 Docusate Sodium (Colace) 250 mg BID PO Last administered on 07/10/18 08:14; Admin Dose 250 MG; Start 07/05/18 at 09:00 Duloxetine HCl (Cymbalta) 60 mg DAILY PO Last administered on 07/10/18 08:15; Admin Dose 60 MG; Start 07/05/18 at 09:00 Econazole Nitrate (Spectazole 1% Cr) 15 applic DAILY TOP Last administered on 07/10/18 08:15; Admin Dose 15 APPLIC; Start 07/05/18 at 09:00 EZETIMIBE (Zetia) 10 mg DAILY PO Last administered on 07/10/18 08:14; Admin Dose 10 MG; Start 07/05/18 at 09:00 Fluocinonide (Lidex 0.05% Cr) 1 applic DAILY TOP Last administered on 07/10/18 08:15; Admin Dose 1 APPLIC; Start 07/05/18 at 09:00 Insulin Aspart (Novolog Insulin Pen) 12 unit WITH MEALS SC Last administered on 07/10/18 08:19; Admin Dose 12 UNIT; Start 07/05/18 at 07:55 Sevelamer Carbonate (Renvela) 1.6 gm WITH MEALS PO Last administered on 07/10/18at 17:43; Admin Dose 1.6 GM; Start 07/05/18 at 07:55 Fenofibrate (Tricor) 145 mg DAILY PO Last administered on 07/10/18 08:14; Admin Dose 145 MG; Start 07/05/18 at 09:00 Tamsulosin HCl (Flomax) 0.4 mg HS PO Last administered on 07/09/18at 21:07; Admin Dose 0.4 MG; Start 07/05/18 at 21:00 Zolpidem Tartrate (Ambien) 10 mg HS PRN PO INSOMNIA; Start 07/05/18 at 01:00 Pregabalin (Lyrica) 50 mg BID PO Last administered on 07/10/18 08:19; Admin Dose 50 MG; Start 07/05/18 at 09:00 Lactulose (Enulose) 10 gm DAILY PRN PO CONSTIPATION; Start 07/05/18 at 01:00 Ondansetron HCl (Zofran Tab) 8 mg Q6H PRN PO NAUSEA AND/OR VOMITING; Start 07/05/18 at 01:00 Albuterol/ Ipratropium (Duoneb) 3 ml Q8H RESP THERAPY PRN HHN SHORTNESS OF BREATH; Start 07/05/18 at 01:00 Acetaminophen (Tylenol Tab) 500 mg Q6H PRN PO MILD PAIN(1-3)OR ELEVATED TEMP; Start 07/05/18 at 01:00 Morphine Sulfate (morphine) 2 mg Q3 PRN IV SEVERE PAIN LEVEL 7-10 Last administered on 07/10/18at 07:58; Admin Dose 2 MG; Start 07/05/18 at 01:00 Fluticasone/ Vilanterol (Breo Ellipta 100-25 Mcg Inh) 1 inh DAILY INH Last administered on 07/10/18 08:15; Admin Dose 1 INH; Start 07/05/18 at 09:00 Fish Oil (Fish Oil) 1,000 mg BID PO Last administered on 07/10/18 08:15; Admin Dose 1,000 MG; Start 07/05/18 at 09:00 Promethazine HCl/ Dextromethorphan (Phenergan-Dm) 5 ml Q4H PRN PO COUGH; Start 07/09/18 at 15:00 Aspirin (Aspirin) 81 mg DAILY PO Last administered on 07/10/18at 08:15; Admin Dose 81 MG; Start 07/07/18 at 09:00 Heparin Sodium (Porcine) (Heparin (1000 Units/ml)) 4,000 unit AFTER DIALYSIS CATHETER ; Start 07/08/18 at 16:30 Albumin Human 50 ml @ 100 mls/hr WITH DIALYSIS PRN IV SBP < 90 DURING DIALYSIS Last administered on 07/09/18at 14:07; Admin Dose 100 MLS/HR; Start 07/08/18 at 16:30 Insulin Glargine (Lantus) 38 units QHS SC Last administered on 07/09/18at 21:12; Admin Dose 38 UNITS; Start 07/09/18 at 21:00 MILLY ROA MD Jul 10, 2018 20:52
[2018-07-10] MEDS: TAMSULOSIN (SR) 0.4 MG CAP PO SCH (21:56)
[2018-07-10] MEDS: ATORVASTATIN 80 MG TAB PO SCH (21:56)
[2018-07-10] MEDS: ISOSORBIDE MONONITRATE(SR)30 MG TAB PO SCH (21:57)
[2018-07-10] MEDS: INSULIN GLARGINE [LANTus] (100 UNITS/ML) SYG SC SCH (22:02)
[2018-07-11] VITALS (27 sets, daily range): BP systolic 102–140; BP diastolic 49–76; PULSE 77–94; RESP 18–22
[2018-07-11] MEDS: CYCLOBENZAPRINE 10 MG TAB PO SCH ×5 (01:02→21:23)
[2018-07-11] MEDS: morphine 2 MG INJ IV PRN ×2 (06:41→21:34)
--- NOTE | 2018-07-11 08:22 | CONS ---
Assessment/Plan Assessment/Plan Assessment/Plan (Daily) 1. CKD, to be dialyzed today. 2. Severe CAD, cardiac surgery note rev->rec percutaneous intervention at [facility] 3. DM, sugars are reasonable 4. Elev phosp, was nl on admit, observe for now 5. Remove central catheter Consultation Date/Type/Reason Admit Date/Time Jul 04, 2018 at 20:45 Initial Consult Date 07/05/18 Date/Time of Note DATE: 07/11/18 TIME: 08:19 Detailed Summary Respiratory: No cough, No shortness of breath Cardiovascular: chest pain Gastrointestinal: no complaints Genitourinary: no complaints Musculoskeletal: other (c/o pain at site of central line (right neck)) Exam/Review of Systems Exam Vitals Vital Signs Date Temp Pulse Resp B/P (MAP) Pulse Ox O2 O2 Flow FiO2 Time Delivery Rate 07/11/18 97.6 85 22 123/57 96 Room Air 2.0 08:04 (79) 07/08/18 27 01:30 Intake and Output 07/10/18 07/10/18 07/11/18 1515:00 23:00 07:00 IntakeIntake Total 360 ml 500 ml BalanceBalance 360 ml 500 ml Neck: other (tenderness naun right central neck catheter); No jvd Respiratory: diminished breath sounds Cardiovascular: regular rate and rhythm; No S3 Gastrointestinal: soft Extremities: No edema Results Result Diagram: 07/11/18 0633 07/11/18 0633 Results 24hrs Laboratory Tests Test 07/10/18 11:41 07/10/18 17:17 07/10/18 21:31 07/11/18 06:33 Bedside Glucose 77 81 115 White Blood Count 8.8 Red Blood Count 3.32 L Hemoglobin 9.9 L Hematocrit 33.1 L Mean Corpuscular 99.7 Volume Mean Corpuscular 29.8 Hemoglobin Mean Corpuscular 29.9 L Hemoglobin Concent Red Cell 14.5 Distribution Width Platelet Count 255 Mean Platelet Volume 10.5 H Immature 1.600 H Granulocytes % Neutrophils % 72.8 Lymphocytes % 13.5 L Monocytes % 8.2 Eosinophils % 3.0 Basophils % 0.9 Nucleated Red Blood 0.0 Cells % Immature 0.140 H Granulocytes # Neutrophils # 6.4 Lymphocytes # 1.2 Monocytes # 0.7 Eosinophils # 0.3 Basophils # 0.1 Nucleated Red Blood 0.0 Cells # Sodium Level 137 Potassium Level 5.0 Chloride Level 96 L Carbon Dioxide Level 28 Anion Gap 13 Blood Urea Nitrogen 72 H Creatinine 6.14 H Est Glomerular 9 L Filtrat Rate mL/min Glucose Level 107 Calcium Level 9.5 Phosphorus Level 8.0 H Medications Medication Current Medications Amitriptyline HCl (Elavil) 50 mg DAILY PO Last administered on 07/10/18 08:14; Admin Dose 50 MG; Start 07/05/18 at 09:00 Atorvastatin Calcium (Lipitor) 80 mg QHS PO Last administered on 07/10/18 21:56; Admin Dose 80 MG; Start 07/05/18 at 21:00 Cyclobenzaprine HCl (Flexeril) 10 mg Q6H PO Last administered on 07/11/18 06:18; Admin Dose 10 MG; Start 07/05/18 at 00:30 Docusate Sodium (Colace) 250 mg BID PO Last administered on 07/10/18 21:56; Admin Dose 250 MG; Start 07/05/18 at 09:00 Duloxetine HCl (Cymbalta) 60 mg DAILY PO Last administered on 07/10/18 08:15; Admin Dose 60 MG; Start 07/05/18 at 09:00 Econazole Nitrate (Spectazole 1% Cr) 15 applic DAILY TOP Last administered on 07/10/18 08:15; Admin Dose 15 APPLIC; Start 07/05/18 at 09:00 EZETIMIBE (Zetia) 10 mg DAILY PO Last administered on 07/10/18 08:14; Admin Dose 10 MG; Start 07/05/18 at 09:00 Fluocinonide (Lidex 0.05% Cr) 1 applic DAILY TOP Last administered on 07/10/18 08:15; Admin Dose 1 APPLIC; Start 07/05/18 at 09:00 Insulin Aspart (Novolog Insulin Pen) 12 unit WITH MEALS SC Last administered on 07/10/18 08:19; Admin Dose 12 UNIT; Start 07/05/18 at 07:55 Sevelamer Carbonate (Renvela) 1.6 gm WITH MEALS PO Last administered on 07/10/18 17:43; Admin Dose 1.6 GM; Start 07/05/18 at 07:55 Fenofibrate (Tricor) 145 mg DAILY PO Last administered on 07/10/18 08:14; Admin Dose 145 MG; Start 07/05/18 at 09:00 Tamsulosin HCl (Flomax) 0.4 mg HS PO Last administered on 07/10/18 21:56; Admin Dose 0.4 MG; Start 07/05/18 at 21:00 Zolpidem Tartrate (Ambien) 10 mg HS PRN PO INSOMNIA; Start 07/05/18 at 01:00 Pregabalin (Lyrica) 50 mg BID PO Last administered on 07/10/18 21:56; Admin Dose 50 MG; Start 07/05/18 at 09:00 Lactulose (Enulose) 10 gm DAILY PRN PO CONSTIPATION; Start 07/05/18 at 01:00 Ondansetron HCl (Zofran Tab) 8 mg Q6H PRN PO NAUSEA AND/OR VOMITING; Start 07/05/18 at 01:00 Albuterol/ Ipratropium (Duoneb) 3 ml Q8H RESP THERAPY PRN HHN SHORTNESS OF BREATH; Start 07/05/18 at 01:00 Acetaminophen (Tylenol Tab) 500 mg Q6H PRN PO MILD PAIN(1-3)OR ELEVATED TEMP; Start 07/05/18 at 01:00 Morphine Sulfate (morphine) 2 mg Q3 PRN IV SEVERE PAIN LEVEL 7-10 Last administered on 07/11/18 06:41; Admin Dose 2 MG; Start 07/05/18 at 01:00 Fluticasone/ Vilanterol (Breo Ellipta 100-25 Mcg Inh) 1 inh DAILY INH Last administered on 07/10/18 08:15; Admin Dose 1 INH; Start 07/05/18 at 09:00 Fish Oil (Fish Oil) 1,000 mg BID PO Last administered on 07/10/18 21:56; Admin Dose 1,000 MG; Start 07/05/18 at 09:00 Promethazine HCl/ Dextromethorphan (Phenergan-Dm) 5 ml Q4H PRN PO COUGH; Start 07/09/18 at 15:00 Aspirin (Aspirin) 81 mg DAILY PO Last administered on 07/10/18 08:15; Admin Do se 81 MG; Start 07/07/18 at 09:00 Heparin Sodium (Porcine) (Heparin (1000 Units/ml)) 4,000 unit AFTER DIALYSIS CATHETER ; Start 07/08/18 at 16:30 Albumin Human 50 ml @ 100 mls/hr WITH DIALYSIS PRN IV SBP < 90 DURING DIALYSIS Last administered on 07/09/18at 14:07; Admin Dose 100 MLS/HR; Start 07/08/18 at 16:30 Insulin Glargine (Lantus) 38 units QHS SC Last administered on 07/10/18at 22:02; Admin Dose 38 UNITS; Start 07/09/18 at 21:00 Isosorbide Mononitrate (Imdur) 30 mg DAILY PO Last administered on 07/10/18at 21:57; Admin Dose 30 MG; Start 07/10/18 at 21:00 Clopidogrel Bisulfate (plaVIX) 75 mg DAILY PO ; Start 07/11/18 at 09:00; Status UNSALBADOR WEEMS MD Jul 11, 2018 08:22
--- NOTE | 2018-07-11 08:26 | CONS ---
Assessment/Plan Assessment/Plan Hospital Course (Demo Recall) Unstable angina/CAD: complex three vessel CAD with ostial LAD, ostial OM, and occluded prox RCA [employer] SW[employer]. In setting of DM, cardiomyopathy, and three vessel CAD, CABG would generally be appropriate. However decision made that pt is too high risk for CABG and should have PCI at a tertiary center should he need Impella or mechanical support. Hypotension:Resolved Neck pain: may be musculoskeletal. Improved Chronic systolic heart failure: currently euvolemic Ischemic cardiomyopathy EF 20% prior report but echo here shows EF 35-40% s/p ICD for secondary prevention Paroxysmal atrial fibrillation Severe PAD s/p prior bypass: occluded bypass on cath 07/06/18 s/p right transmetatarsal amputation ESRD on HD Uncontrolled DM HTN COPD Burn wound/cellulitis depression Likely noncompliance -will arrange for transfer to [facility] for high risk PCI. creative resource manager will be notified -ASA -restart plavix -continue to hold Eliquis -hold coreg and benazepril 10mg -lasix 80mg PO BID was d/c-ed -lipitor 80mg, zetia -HD per nephrology Consultation Date/Type/Reason Admit Date/Time Jul 04, 2018 at 20:45 Initial Consult Date 07/05/18 Type of Consult Cardiology Date/Time of Note DATE: 07/11/18 TIME: 08:23 24 HR Interval Summary Free Text/Dictation Decision made that pt is too high risk for CABG and should have PCI at a tertiary center should he need Impella or mechanical support. Exam/Review of Systems Vital Signs Vitals Vital Signs Date Temp Pulse Resp B/P (MAP) Pulse Ox O2 O2 Flow FiO2 Time Delivery Rate 07/11/18 97.6 85 22 123/57 96 Room Air 2.0 08:04 (79) 07/08/18 27 01:30 Intake and Output 07/10/18 07/10/18 07/11/18 1515:00 23:00 07:00 IntakeIntake Total 360 ml 500 ml BalanceBalance 360 ml 500 ml Exam Constitutional: alert, oriented Psych: no complaints, nl mood/affect Neck: No jvd Respiratory: diminished breath sounds; No clear to auscultation Cardiovascular: regular rate and rhythm, edema (trace) Gastrointestinal: soft, non-tender; No distended Musculoskeletal: No nl extremities to inspection Neurological: nl mental status, nl speech Labs Result Diagram: 07/11/18 0633 07/11/18 0633 Results 24hrs Laboratory Tests Test 07/10/18 11:41 07/10/18 17:17 07/10/18 21:31 07/11/18 06:33 Bedside Glucose 77 81 115 White Blood Count 8.8 Red Blood Count 3.32 L Hemoglobin 9.9 L Hematocrit 33.1 L Mean Corpuscular 99.7 Volume Mean Corpuscular 29.8 Hemoglobin Mean Corpuscular 29.9 L Hemoglobin Concent Red Cell 14.5 Distribution Width Platelet Count 255 Mean Platelet Volume 10.5 H Immature 1.600 H Granulocytes % Neutrophils % 72.8 Lymphocytes % 13.5 L Monocytes % 8.2 Eosinophils % 3.0 Basophils % 0.9 Nucleated Red Blood 0.0 Cells % Immature 0.140 H Granulocytes # Neutrophils # 6.4 Lymphocytes # 1.2 Monocytes # 0.7 Eosinophils # 0.3 Basophils # 0.1 Nucleated Red Blood 0.0 Cells # Sodium Level 137 Potassium Level 5.0 Chloride Level 96 L Carbon Dioxide Level 28 Anion Gap 13 Blood Urea Nitrogen 72 H Creatinine 6.14 H Est Glomerular 9 L Filtrat Rate mL/min Glucose Level 107 Calcium Level 9.5 Phosphorus Level 8.0 H Test 07/11/18 08:06 Bedside Glucose 110 Medications Medications Current Medications Amitriptyline HCl (Elavil) 50 mg DAILY PO Last administered on 07/10/18 08:14; Admin Dose 50 MG; Start 07/05/18 at 09:00 Atorvastatin Calcium (Lipitor) 80 mg QHS PO Last administered on 07/10/18 21:56; Admin Dose 80 MG; Start 07/05/18 at 21:00 Cyclobenzaprine HCl (Flexeril) 10 mg Q6H PO Last administered on 07/11/18 06:18; Admin Dose 10 MG; Start 07/05/18 at 00:30 Docusate Sodium (Colace) 250 mg BID PO Last administered on 07/10/18at 21:56; Admin Dose 250 MG; Start 07/05/18 at 09:00 Duloxetine HCl (Cymbalta) 60 mg DAILY PO Last administered on 07/10/18at 08:15; Admin Dose 60 MG; Start 07/05/18 at 09:00 Econazole Nitrate (Spectazole 1% Cr) 15 applic DAILY TOP Last administered on 07/10/18 08:15; Admin Dose 15 APPLIC; Start 07/05/18 at 09:00 EZETIMIBE (Zetia) 10 mg DAILY PO Last administered on 07/10/18 08:14; Admin Dose 10 MG; Start 07/05/18 at 09:00 Fluocinonide (Lidex 0.05% Cr) 1 applic DAILY TOP Last administered on 07/10/18 08:15; Admin Dose 1 APPLIC; Start 07/05/18 at 09:00 Insulin Aspart (Novolog Insulin Pen) 12 unit WITH MEALS SC Last administered on 07/10/18 08:19; Admin Dose 12 UNIT; Start 07/05/18 at 07:55 Sevelamer Carbonate (Renvela) 1.6 gm WITH MEALS PO Last administered on 07/10/18 17:43; Admin Dose 1.6 GM; Start 07/05/18 at 07:55 Fenofibrate (Tricor) 145 mg DAILY PO Last administered on 07/10/18 08:14; Admin Dose 145 MG; Start 07/05/18 at 09:00 Tamsulosin HCl (Flomax) 0.4 mg HS PO Last administered on 07/10/18 21:56; Admin Dose 0.4 MG; Start 07/05/18 at 21:00 Zolpidem Tartrate (Ambien) 10 mg HS PRN PO INSOMNIA; Start 07/05/18 at 01:00 Pregabalin (Lyrica) 50 mg BID PO Last administered on 07/10/18 21:56; Admin Dose 50 MG; Start 07/05/18 at 09:00 Lactulose (Enulose) 10 gm DAILY PRN PO CONSTIPATION; Start 07/05/18 at 01:00 Ondansetron HCl (Zofran Tab) 8 mg Q6H PRN PO NAUSEA AND/OR VOMITING; Start 07/05/18 at 01:00 Albuterol/ Ipratropium (Duoneb) 3 ml Q8H RESP THERAPY PRN HHN SHORTNESS OF BREATH; Start 07/05/18 at 01:00 Acetaminophen (Tylenol Tab) 500 mg Q6H PRN PO MILD PAIN(1-3)OR ELEVATED TEMP; Start 07/05/18 at 01:00 Morphine Sulfate (morphine) 2 mg Q3 PRN IV SEVERE PAIN LEVEL 7-10 Last administered on 07/11/18 06:41; Admin Dose 2 MG; Start 07/05/18 at 01:00 Fluticasone/ Vilanterol (Breo Ellipta 100-25 Mcg Inh) 1 inh DAILY INH Last administered on 07/10/18 08:15; Admin Dose 1 INH; Start 07/05/18 at 09:00 Fish Oil (Fish Oil) 1,000 mg BID PO Last administered on 07/10/18 21:56; Admin Dose 1,000 MG; Start 07/05/18 at 09:00 Promethazine HCl/ Dextromethorphan (Phenergan-Dm) 5 ml Q4H PRN PO COUGH; Start 07/09/18 at 15:00 Aspirin (Aspirin) 81 mg DAILY PO Last administered on 07/10/18 08:15; Admin Dose 81 MG; Start 07/07/18 at 09:00 Heparin Sodium (Porcine) (Heparin (1000 Units/ml)) 4,000 unit AFTER DIALYSIS CATHETER ; Start 07/08/18 at 16:30 Albumin Human 50 ml @ 100 mls/hr WITH DIALYSIS PRN IV SBP < 90 DURING DIALYSIS Last administered on 07/09/18 14:07; Admin Dose 100 MLS/HR; Start 07/08/18 at 16:30 Insulin Glargine (Lantus) 38 units QHS SC Last administered on 07/10/18 22:02; Admin Dose 38 UNITS; Start 07/09/18 at 21:00 Isosorbide Mononitrate (Imdur) 30 mg DAILY PO Last administered on 07/10/18at 21:57; Admin Dose 30 MG; Start 07/10/18 at 21:00 Clopidogrel Bisulfate (plaVIX) 75 mg DAILY PO ; Start 07/11/18 at 09:00 TAHIRA BUCHANAN Jul 11, 2018 08:26
[2018-07-11] MEDS: ECONAZOLE TOP SCH (08:49)
[2018-07-11] MEDS: FLUTICASONE/VILANTEROL 100-25 INH SCH (08:49)
[2018-07-11] MEDS: PREGABALIN 50 MG CAP PO SCH ×2 (08:50→21:25)
[2018-07-11] MEDS: DULOXETINE 30 MG CAP DR PO SCH (08:50)
[2018-07-11] MEDS: FENOFIBRATE 145 MG TAB PO SCH (08:50)
[2018-07-11] MEDS: CLOPIDOGREL 75 MG TAB PO SCH (08:50)
[2018-07-11] MEDS: ASPIRIN 81 MG TAB PO SCH (08:50)
[2018-07-11] MEDS: AMITRIPTYLINE 50 MG TAB PO SCH (08:50)
[2018-07-11] MEDS: SEVELAMER CARBONATE 0.8 GM PKT PO SCH ×3 (08:50→17:23)
[2018-07-11] MEDS: DOCUSATE SODIUM 250 MG CAP PO SCH ×2 (08:50→21:23)
[2018-07-11] MEDS: EZETIMIBE 10 MG TAB PO SCH (08:50)
[2018-07-11] MEDS: ISOSORBIDE MONONITRATE(SR)30 MG TAB PO SCH (08:51)
[2018-07-11] MEDS: FISH OIL 1,000 MG CAP PO SCH ×2 (08:51→21:23)
[2018-07-11] MEDS: FLUOCINONIDE 0.05% CR 30GM TUBE TOP SCH (08:51)
[2018-07-11] MEDS: INSULIN ASPART [NOVOLOG] 3 ML PEN SC SCH ×3 (08:56→17:24)
[2018-07-11] MEDS ORDERED: HYDROmorphONE 1 MG/ML SYG IV ONE (09:00)
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
[2018-07-11] MEDS: INSULIN GLARGINE [LANTus] (100 UNITS/ML) SYG SC SCH (21:00)
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
[2018-07-11] MEDS: TAMSULOSIN (SR) 0.4 MG CAP PO SCH (21:23)
[2018-07-11] MEDS: ATORVASTATIN 80 MG TAB PO SCH (21:23)
[2018-07-12] VITALS (11 sets, daily range): BP systolic 98–145; BP diastolic 54–80; PULSE 85–96; RESP 18–22
[2018-07-12] MEDS: morphine 2 MG INJ IV PRN ×3 (01:00→20:52)
[2018-07-12] MEDS: CYCLOBENZAPRINE 10 MG TAB PO SCH ×3 (06:12→18:12)
[2018-07-12] MEDS: INSULIN ASPART [NOVOLOG] 3 ML PEN SC SCH ×3 (07:55→17:55)
--- NOTE | 2018-07-12 08:33 | CONS ---
Assessment/Plan Assessment/Plan Assessment/Plan (Daily) 1. CKD with next HD scheduled tomm 2. Sl inc K, will repeat later 3. Severe coronary dz, transferred planned to [facility] 4. BP controlled 5. CHO control is acceptable Consultation Date/Type/Reason Admit Date/Time Jul 04, 2018 at 20:45 Initial Consult Date 07/05/18 Date/Time of Note DATE: 07/12/18 TIME: 08:31 Detailed Summary Respiratory: No shortness of breath Cardiovascular: lightheadedness; No chest pain Gastrointestinal: no complaints Genitourinary: no complaints Exam/Review of Systems Exam Vitals Vital Signs Date Temp Pulse Resp B/P (MAP) Pulse Ox O2 O2 Flow FiO2 Time Delivery Rate 07/12/18 98.6 94 18 124/73 94 Nasal 07:26 (90) Cannula 07/12/18 3.0 02:07 Intake and Output 07/11/18 07/11/18 07/12/18 1515:00 23:00 07:00 IntakeIntake Total 480 ml 400 ml OutputOutput Total 1900 ml 1500 ml BalanceBalance -1900 ml -1020 ml 400 ml Neck: No jvd Respiratory: clear to auscultation Cardiovascular: regular rate and rhythm Gastrointestinal: soft, distended; No tender Extremities: No edema Results Result Diagram: 07/12/18 0631 07/12/18 0631 Results 24hrs Laboratory Tests Test 07/11/18 12:39 07/11/18 17:19 07/11/18 21:22 07/12/18 06:31 Bedside Glucose 108 100 151 White Blood Count 10.7 # Red Blood Count 3.24 L Hemoglobin 9.6 L Hematocrit 33.0 L Mean Corpuscular 101.9 H Volume Mean Corpuscular 29.6 Hemoglobin Mean Corpuscular 29.1 L Hemoglobin Concent Red Cell 14.6 H Distribution Width Platelet Count 264 Mean Platelet Volume 10.2 Immature 1.400 H Granulocytes % Neutrophils % 74.7 Lymphocytes % 13.0 L Monocytes % 8.0 Eosinophils % 2.2 Basophils % 0.7 Nucleated Red Blood 0.0 Cells % Immature 0.150 H Granulocytes # Neutrophils # 8.0 H Lymphocytes # 1.4 Monocytes # 0.9 Eosinophils # 0.2 Basophils # 0.1 Nucleated Red Blood 0.0 Cells # Sodium Level 141 Potassium Level 5.5 H Chloride Level 100 Carbon Dioxide Level 29 Anion Gap 12 Blood Urea Nitrogen 54 H Creatinine 4.97 #H Est Glomerular 12 L Filtrat Rate mL/min Glucose Level 109 Calcium Level 9.7 Test 07/12/18 07:51 Bedside Glucose 97 Medications Medication Current Medications Amitriptyline HCl (Elavil) 50 mg DAILY PO Last administered on 07/11/18 08:50; Admin Dose 50 MG; Start 07/05/18 at 09:00 Atorvastatin Calcium (Lipitor) 80 mg QHS PO Last administered on 07/11/18 21:23; Admin Dose 80 MG; Start 07/05/18 at 21:00 Cyclobenzaprine HCl (Flexeril) 10 mg Q6H PO Last administered on 07/12/18 06:12; Admin Dose 10 MG; Start 07/05/18 at 00:30 Docusate Sodium (Colace) 250 mg BID PO Last administered on 07/11/18 21:23; Admin Dose 250 MG; Start 07/05/18 at 09:00 Duloxetine HCl (Cymbalta) 60 mg DAILY PO Last administered on 07/11/18 08:50; Admin Dose 60 MG; Start 07/05/18 at 09:00 Econazole Nitrate (Spectazole 1% Cr) 15 applic DAILY TOP Last administered on 07/11/18 08:49; Admin Dose 15 APPLIC; Start 07/05/18 at 09:00 EZETIMIBE (Zetia) 10 mg DAILY PO Last administered on 07/11/18 08:50; Admin Dose 10 MG; Start 07/05/18 at 09:00 Fluocinonide (Lidex 0.05% Cr) 1 applic DAILY TOP Last administered on 07/11/18 08:51; Admin Dose 1 APPLIC; Start 07/05/18 at 09:00 Insulin Aspart (Novolog Insulin Pen) 12 unit WITH MEALS SC Last administered on 07/11/18 08:56; Admin Dose 12 UNIT; Start 07/05/18 at 07:55 Sevelamer Carbonate (Renvela) 1.6 gm WITH MEALS PO Last administered on 07/11/18 17:23; Admin Dose 1.6 GM; Start 07/05/18 at 07:55 Fenofibrate (Tricor) 145 mg DAILY PO Last administered on 07/11/18 08:50; Admin Dose 145 MG; Start 07/05/18 at 09:00 Tamsulosin HCl (Flomax) 0.4 mg HS PO Last administered on 07/11/18 21:23; Admin Dose 0.4 MG; Start 07/05/18 at 21:00 Zolpidem Tartrate (Ambien) 10 mg HS PRN PO INSOMNIA Last administered on 07/12/18 02:47; Admin Dose 10 MG; Start 07/05/18 at 01:00 Pregabalin (Lyrica) 50 mg BID PO Last administered on 07/11/18 21:25; Admin Dose 50 MG; Start 07/05/18 at 09:00 Lactulose (Enulose) 10 gm DAILY PRN PO CONSTIPATION; Start 07/05/18 at 01:00 Ondansetron HCl (Zofran Tab) 8 mg Q6H PRN PO NAUSEA AND/OR VOMITING; Start 07/05/18 at 01:00 Albuterol/ Ipratropium (Duoneb) 3 ml Q8H RESP THERAPY PRN HHN SHORTNESS OF BREATH; Start 07/05/18 at 01:00 Acetaminophen (Tylenol Tab) 500 mg Q6H PRN PO MILD PAIN(1-3)OR ELEVATED TEMP Last administered on 07/11/18 08:49; Admin Dose 500 MG; Start 07/05/18 at 01:00 Morphine Sulfate (morphine) 2 mg Q3 PRN IV SEVERE PAIN LEVEL 7-10 Last administered on 07/12/18 03:56; Admin Dose 2 MG; Start 07/05/18 at 01:00 Fluticasone/ Vilanterol (Breo Ellipta 100-25 Mcg Inh) 1 inh DAILY INH Last administered on 07/11/18 08:49; Admin Dose 1 INH; Start 07/05/18 at 09:00 Fish Oil (Fish Oil) 1,000 mg BID PO Last administered on 07/11/18 21:23; Admin Dose 1,000 MG; Start 07/05/18 at 09:00 Promethazine HCl/ Dextromethorphan (Phenergan-Dm) 5 ml Q4H PRN PO COUGH; Start 07/09/18 at 15:00 Aspirin (Aspirin) 81 mg DAILY PO Last administered on 07/11/18 08:50; Admin Dose 81 MG; Start 07/07/18 at 09:00 Heparin Sodium (Porcine) (Heparin (1000 Units/ml)) 4,000 unit AFTER DIALYSIS CATHETER ; Start 07/08/18 at 16:30 Albumin Human 50 ml @ 100 mls/hr WITH DIALYSIS PRN IV SBP < 90 DURING DIALYSIS Last administered on 07/09/18 14:07; Admin Dose 100 MLS/HR; Start 07/08/18 at 16:30 Insulin Glargine (Lantus) 38 units QHS SC Last administered on 07/11/18 21:00; Admin Dose 38 UNITS; Start 07/09/18 at 21:00 Isosorbide Mononitrate (Imdur) 30 mg DAILY PO Last administered on 07/11/18 08:51; Admin Dose 30 MG; Start 07/10/18 at 21:00 Clopidogrel Bisulfate (plaVIX) 75 mg DAILY PO Last administered on 07/11/18 08:50; Admin Dose 75 MG; Start 07/11/18 at 09:00 SALBADOR SHIRLEY MD Jul 12, 2018 08:33
--- NOTE | 2018-07-12 08:55 | CONS ---
Assessment/Plan Assessment/Plan Hospital Course (Demo Recall) Unstable angina/CAD: complex three vessel CAD with ostial LAD, ostial OM, and occluded prox RCA [employer]. In setting of DM, cardiomyopathy, and three vessel CAD, CABG would generally be appropriate. However decision made that pt is too high risk for CABG and should have PCI at a tertiary center should he need Impella or mechanical support. Hypotension:Resolved Neck pain: may be musculoskeletal. Improved Chronic systolic heart failure: currently euvolemic Ischemic cardiomyopathy EF 20% prior report but echo here shows EF 35-40% s/p ICD for secondary prevention Paroxysmal atrial fibrillation Severe PAD s/p prior bypass: occluded bypass on cath 07/06/18 s/p right transmetatarsal amputation ESRD on HD Uncontrolled DM HTN COPD Burn wound/cellulitis depression Likely noncompliance -awaiting transfer to [facility] for high risk PCI -ASA -plavix -continue to hold Eliquis for now -hold coreg and benazepril 10mg -lasix 80mg PO BID was d/c-ed -lipitor 80mg, zetia -HD per nephrology Consultation Date/Type/Reason Admit Date/Time Jul 04, 2018 at 20:45 Initial Consult Date 07/05/18 Type of Consult Cardiology Date/Time of Note DATE: 07/12/18 TIME: 08:54 24 HR Interval Summary Free Text/Dictation No events. Awaiting transfer to [facility] Has not had a BM in 3 days Exam/Review of Systems Vital Signs Vitals Vital Signs Date Temp Pulse Resp B/P (MAP) Pulse Ox O2 O2 Flow FiO2 Time Delivery Rate 07/12/18 92 08:31 07/12/18 98.6 18 124/73 94 Nasal 07:26 (90) Cannula 07/12/18 3.0 02:07 Intake and Output 07/11/18 07/11/18 07/12/18 1515:00 23:00 07:00 IntakeIntake Total 480 ml 400 ml OutputOutput Total 1900 ml 1500 ml BalanceBalance -1900 ml -1020 ml 400 ml Exam Constitutional: alert Psych: no complaints, nl mood/affect Head: normocephalic, atraumatic Neck: No jvd Respiratory: diminished breath sounds; No clear to auscultation Cardiovascular: regular rate and rhythm; No edema Gastrointestinal: soft, non-tender, distended Neurological: nl mental status, nl speech Labs Result Diagram: 07/12/18 0631 07/12/18 0631 Results 24hrs Laboratory Tests Test 07/11/18 12:39 07/11/18 17:19 07/11/18 21:22 07/12/18 06:31 Bedside Glucose 108 100 151 White Blood Count 10.7 # Red Blood Count 3.24 L Hemoglobin 9.6 L Hematocrit 33.0 L Mean Corpuscular 101.9 H Volume Mean Corpuscular 29.6 Hemoglobin Mean Corpuscular 29.1 L Hemoglobin Concent Red Cell 14.6 H Distribution Width Platelet Count 264 Mean Platelet Volume 10.2 Immature 1.400 H Granulocytes % Neutrophils % 74.7 Lymphocytes % 13.0 L Monocytes % 8.0 Eosinophils % 2.2 Basophils % 0.7 Nucleated Red Blood 0.0 Cells % Immature 0.150 H Granulocytes # Neutrophils # 8.0 H Lymphocytes # 1.4 Monocytes # 0.9 Eosinophils # 0.2 Basophils # 0.1 Nucleated Red Blood 0.0 Cells # Sodium Level 141 Potassium Level 5.5 H Chloride Level 100 Carbon Dioxide Level 29 Anion Gap 12 Blood Urea Nitrogen 54 H Creatinine 4.97 #H Est Glomerular 12 L Filtrat Rate mL/min Glucose Level 109 Calcium Level 9.7 Test 07/12/18 07:51 Bedside Glucose 97 Medications Medications Current Medications Amitriptyline HCl (Elavil) 50 mg DAILY PO Last administered on 07/11/18 08:50; Admin Dose 50 MG; Start 07/05/18 at 09:00 Atorvastatin Calcium (Lipitor) 80 mg QHS PO Last administered on 07/11/18 21:23; Admin Dose 80 MG; Start 07/05/18 at 21:00 Cyclobenzaprine HCl (Flexeril) 10 mg Q6H PO Last administered on 07/12/18 06:12; Admin Dose 10 MG; Start 07/05/18 at 00:30 Docusate Sodium (Colace) 250 mg BID PO Last administered on 07/11/18 21:23; Admin Dose 250 MG; Start 07/05/18 at 09:00 Duloxetine HCl (Cymbalta) 60 mg DAILY PO Last administered on 07/11/18at 08:50; Admin Dose 60 MG; Start 07/05/18 at 09:00 Econazole Nitrate (Spectazole 1% Cr) 15 applic DAILY TOP Last administered on 07/11/18 08:49; Admin Dose 15 APPLIC; Start 07/05/18 at 09:00 EZETIMIBE (Zetia) 10 mg DAILY PO Last administered on 07/11/18 08:50; Admin Dose 10 MG; Start 07/05/18 at 09:00 Fluocinonide (Lidex 0.05% Cr) 1 applic DAILY TOP Last administered on 07/11/18 08:51; Admin Dose 1 APPLIC; Start 07/05/18 at 09:00 Insulin Aspart (Novolog Insulin Pen) 12 unit WITH MEALS SC Last administered on 07/11/18 08:56; Admin Dose 12 UNIT; Start 07/05/18 at 07:55 Sevelamer Carbonate (Renvela) 1.6 gm WITH MEALS PO Last administered on 07/11/18 17:23; Admin Dose 1.6 GM; Start 07/05/18 at 07:55 Fenofibrate (Tricor) 145 mg DAILY PO Last administered on 07/11/18 08:50; Admin Dose 145 MG; Start 07/05/18 at 09:00 Tamsulosin HCl (Flomax) 0.4 mg HS PO Last administered on 07/11/18 21:23; Admin Dose 0.4 MG; Start 07/05/18 at 21:00 Zolpidem Tartrate (Ambien) 10 mg HS PRN PO INSOMNIA Last administered on 07/12/18 02:47; Admin Dose 10 MG; Start 07/05/18 at 01:00 Pregabalin (Lyrica) 50 mg BID PO Last administered on 07/11/18 21:25; Admin Dose 50 MG; Start 07/05/18 at 09:00 Lactulose (Enulose) 10 gm DAILY PRN PO CONSTIPATION; Start 07/05/18 at 01:00 Ondansetron HCl (Zofran Tab) 8 mg Q6H PRN PO NAUSEA AND/OR VOMITING; Start 07/05/18 at 01:00 Albuterol/ Ipratropium (Duoneb) 3 ml Q8H RESP THERAPY PRN HHN SHORTNESS OF BREATH; Start 07/05/18 at 01:00 Acetaminophen (Tylenol Tab) 500 mg Q6H PRN PO MILD PAIN(1-3)OR ELEVATED TEMP Last administered on 07/11/18 08:49; Admin Dose 500 MG; Start 07/05/18 at 01:00 Morphine Sulfate (morphine) 2 mg Q3 PRN IV SEVERE PAIN LEVEL 7-10 Last administered on 07/12/18 03:56; Admin Dose 2 MG; Start 07/05/18 at 01:00 Fluticasone/ Vilanterol (Breo Ellipta 100-25 Mcg Inh) 1 inh DAILY INH Last administered on 07/11/18 08:49; Admin Dose 1 INH; Start 07/05/18 at 09:00 Fish Oil (Fish Oil) 1,000 mg BID PO Last administered on 07/11/18 21:23; Admin Dose 1,000 MG; Start 07/05/18 at 09:00 Promethazine HCl/ Dextromethorphan (Phenergan-Dm) 5 ml Q4H PRN PO COUGH; Start 07/09/18 at 15:00 Aspirin (Aspirin) 81 mg DAILY PO Last administered on 07/11/18 08:50; Admin Dose 81 MG; Start 07/07/18 at 09:00 Heparin Sodium (Porcine) (Heparin (1000 Units/ml)) 4,000 unit AFTER DIALYSIS CATHETER ; Start 07/08/18 at 16:30 Albumin Human 50 ml @ 100 mls/hr WITH DIALYSIS PRN IV SBP < 90 DURING DIALYSIS Last administered on 07/09/18 14:07; Admin Dose 100 MLS/HR; Start 07/08/18 at 16:30 Insulin Glargine (Lantus) 38 units QHS SC Last administered on 07/11/18 21:00; Admin Dose 38 UNITS; Start 07/09/18 at 21:00 Isosorbide Mononitrate (Imdur) 30 mg DAILY PO Last administered on 07/11/18 08:51; Admin Dose 30 MG; Start 07/10/18 at 21:00 Clopidogrel Bisulfate (plaVIX) 75 mg DAILY PO Last administered on 07/11/18 08:50; Admin Dose 75 MG; Start 07/11/18 at 09:00 TAHIRA BUCHANAN Jul 12, 2018 08:55
[2018-07-12] MEDS: SEVELAMER CARBONATE 0.8 GM PKT PO SCH ×3 (08:58→18:12)
[2018-07-12] MEDS: ISOSORBIDE MONONITRATE(SR)30 MG TAB PO SCH (08:59)
[2018-07-12] MEDS: ASPIRIN 81 MG TAB PO SCH (08:59)
[2018-07-12] MEDS: EZETIMIBE 10 MG TAB PO SCH (08:59)
[2018-07-12] MEDS: DULOXETINE 30 MG CAP DR PO SCH (08:59)
[2018-07-12] MEDS: CLOPIDOGREL 75 MG TAB PO SCH (08:59)
[2018-07-12] MEDS: PREGABALIN 50 MG CAP PO SCH ×2 (08:59→20:49)
[2018-07-12] MEDS: AMITRIPTYLINE 50 MG TAB PO SCH (09:00)
[2018-07-12] MEDS: DOCUSATE SODIUM 250 MG CAP PO SCH ×2 (09:00→20:49)
[2018-07-12] MEDS: FISH OIL 1,000 MG CAP PO SCH ×2 (09:00→20:49)
[2018-07-12] MEDS: FENOFIBRATE 145 MG TAB PO SCH (09:00)
[2018-07-12] MEDS: FLUTICASONE/VILANTEROL 100-25 INH SCH (09:00)
[2018-07-12] MEDS: ECONAZOLE TOP SCH (09:01)
[2018-07-12] MEDS: FLUOCINONIDE 0.05% CR 30GM TUBE TOP SCH (09:01)
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
[2018-07-12] MEDS ORDERED: GLUCOSE GEL 15 GRAM TUBE ONE (17:47)
[2018-07-12] MEDS: TAMSULOSIN (SR) 0.4 MG CAP PO SCH (20:49)
[2018-07-12] MEDS: ATORVASTATIN 80 MG TAB PO SCH (20:49)
[2018-07-12] MEDS: INSULIN GLARGINE [LANTus] (100 UNITS/ML) SYG SC SCH (20:57)
[2018-07-13] VITALS (32 sets, daily range): BP systolic 88–164; BP diastolic 40–100; PULSE 77–101; RESP 18–20
[2018-07-13] MEDS: CYCLOBENZAPRINE 10 MG TAB PO SCH ×4 (00:59→17:30)
[2018-07-13] MEDS: morphine 2 MG INJ IV PRN ×3 (01:14→08:59)
[2018-07-13] MEDS: INSULIN ASPART [NOVOLOG] 3 ML PEN SC SCH ×3 (07:55→17:09)
--- NOTE | 2018-07-13 08:10 | CONS ---
Assessment/Plan Assessment/Plan Hospital Course (Demo Recall) 1. CKD, to be dialyzed today. 2. Severe CAD, cardiac surgery note rev->rec percutaneous intervention at [facility] 3. DM, sugars are reasonable 4. He has an elevated potassium but is due for dialysis today. 5. Remove central catheter Consultation Date/Type/Reason Admit Date/Time Jul 04, 2018 at 20:45 Initial Consult Date 07/06/18 Type of Consult Nephrology Date/Time of Note DATE: 07/13/18 TIME: 08:06 24 HR Interval Summary Free Text/Dictation Whitley is awake and alert. He is complaining of some discomfort where the nasal cannula comes up against his neck. He is not complaining of chest pain. He is due for dialysis today. Exam/Review of Systems Exam Vitals Vital Signs Date Temp Pulse Resp B/P (MAP) Pulse Ox O2 O2 Flow FiO2 Time Delivery Rate 07/13/18 98.2 95 19 116/74 93 08:03 (88) 07/12/18 3.0 21:06 07/12/18 Nasal 20:40 Cannula Intake and Output 07/12/18 07/12/18 07/13/18 1515:00 23:00 07:00 IntakeIntake Total 780 ml 500 ml BalanceBalance 780 ml 500 ml Constitutional: alert, oriented, frail Respiratory: clear to auscultation, normal air movement Cardiovascular: regular rate and rhythm Gastrointestinal: soft, non-tender Musculoskeletal: nl extremities to inspection Results Result Diagram: 07/13/18 0629 07/13/18 0629 Results 24hrs Laboratory Tests Test 07/12/18 11:52 07/12/18 12:43 07/12/18 17:45 07/12/18 17:51 Bedside Glucose 74 47 *L 50 L Potassium Level 5.4 H Test 07/12/18 18:17 07/12/18 20:07 07/12/18 20:46 07/13/18 01:01 Bedside Glucose 85 219 150 Glucose Level 214 # Test 07/13/18 02:49 07/13/18 06:29 07/13/18 07:52 Bedside Glucose 106 101 White Blood Count 10.1 Red Blood Count 3.26 L Hemoglobin 9.8 L Hematocrit 33.1 L Mean Corpuscular 101.5 H Volume Mean Corpuscular 30.1 Hemoglobin Mean Corpuscular 29.6 L Hemoglobin Concent Red Cell 14.7 H Distribution Width Platelet Count 261 Mean Platelet Volume 10.4 Immature 1.900 H Granulocytes % Neutrophils % 75.8 Lymphocytes % 12.5 L Monocytes % 7.4 Eosinophils % 1.7 Basophils % 0.7 Nucleated Red Blood 0.0 Cells % Immature 0.190 H Granulocytes # Neutrophils # 7.7 H Lymphocytes # 1.3 Monocytes # 0.8 Eosinophils # 0.2 Basophils # 0.1 Nucleated Red Blood 0.0 Cells # Sodium Level 139 Potassium Level 6.2 *H Chloride Level 99 Carbon Dioxide Level 25 Anion Gap 15 H Blood Urea Nitrogen 70 H Creatinine 6.22 H Est Glomerular 9 L Filtrat Rate mL/min Glucose Level 105 # Calcium Level 9.8 Phosphorus Level 8.5 H Medications Medication Current Medications Amitriptyline HCl (Elavil) 50 mg DAILY PO Last administered on 07/12/18 09:00; Admin Dose 50 MG; Start 07/05/18 at 09:00 Atorvastatin Calcium (Lipitor) 80 mg QHS PO Last administered on 07/12/18 20:49; Admin Dose 80 MG; Start 07/05/18 at 21:00 Cyclobenzaprine HCl (Flexeril) 10 mg Q6H PO Last administered on 07/13/18 06:37; Admin Dose 10 MG; Start 07/05/18 at 00:30 Docusate Sodium (Colace) 250 mg BID PO Last administered on 07/12/18 20:49; Admin Dose 250 MG; Start 07/05/18 at 09:00 Duloxetine HCl (Cymbalta) 60 mg DAILY PO Last administered on 07/12/18 08:59; Admin Dose 60 MG; Start 07/05/18 at 09:00 Econazole Nitrate (Spectazole 1% Cr) 15 applic DAILY TOP Last administered on 07/12/18 09:01; Admin Dose 15 APPLIC; Start 07/05/18 at 09:00 EZETIMIBE (Zetia) 10 mg DAILY PO Last administered on 07/12/18 08:59; Admin Dose 10 MG; Start 07/05/18 at 09:00 Fluocinonide (Lidex 0.05% Cr) 1 applic DAILY TOP Last administered on 07/12/18 09:01; Admin Dose 1 APPLIC; Start 07/05/18 at 09:00 Sevelamer Carbonate (Renvela) 1.6 gm WITH MEALS PO Last administered on 07/12/18 18:12; Admin Dose 1.6 GM; Start 07/05/18 at 07:55 Fenofibrate (Tricor) 145 mg DAILY PO Last administered on 07/12/18 09:00; Admin Dose 145 MG; Start 07/05/18 at 09:00 Tamsulosin HCl (Flomax) 0.4 mg HS PO Last administered on 07/12/18 20:49; Admin Dose 0.4 MG; Start 07/05/18 at 21:00 Zolpidem Tartrate (Ambien) 10 mg HS PRN PO INSOMNIA Last administered on 07/12/18 02:47; Admin Dose 10 MG; Start 07/05/18 at 01:00 Pregabalin (Lyrica) 50 mg BID PO Last administered on 07/12/18 20:49; Admin Dose 50 MG; Start 07/05/18 at 09:00 Lactulose (Enulose) 10 gm DAILY PRN PO CONSTIPATION; Start 07/05/18 at 01:00 Ondansetron HCl (Zofran Tab) 8 mg Q6H PRN PO NAUSEA AND/OR VOMITING; Start 07/05/18 at 01:00 Albuterol/ Ipratropium (Duoneb) 3 ml Q8H RESP THERAPY PRN HHN SHORTNESS OF BREATH; Start 07/05/18 at 01:00 Acetaminophen (Tylenol Tab) 500 mg Q6H PRN PO MILD PAIN(1-3)OR ELEVATED TEMP Last administered on 07/11/18 08:49; Admin Dose 500 MG; Start 07/05/18 at 01:00 Morphine Sulfate (morphine) 2 mg Q3 PRN IV SEVERE PAIN LEVEL 7-10 Last administered on 07/13/18 04:04; Admin Dose 2 MG; Start 07/05/18 at 01:00 Fluticasone/ Vilanterol (Breo Ellipta 100-25 Mcg Inh) 1 inh DAILY INH Last administered on 07/12/18 09:00; Admin Dose 1 INH; Start 07/05/18 at 09:00 Fish Oil (Fish Oil) 1,000 mg BID PO Last administered on 07/12/18 20:49; Admin Dose 1,000 MG; Start 07/05/18 at 09:00 Promethazine HCl/ Dextromethorphan (Phenergan-Dm) 5 ml Q4H PRN PO COUGH; Start 07/09/18 at 15:00 Aspirin (Aspirin) 81 mg DAILY PO Last administered on 07/12/18 08:59; Admin Dose 81 MG; Start 07/07/18 at 09:00 Heparin Sodium (Porcine) (Heparin (1000 Units/ml)) 4,000 unit AFTER DIALYSIS CATHETER ; Start 07/08/18 at 16:30 Albumin Human 50 ml @ 100 mls/hr WITH DIALYSIS PRN IV SBP < 90 DURING DIALYSIS Last administered on 07/09/18 14:07; Admin Dose 100 MLS/HR; Start 07/08/18 at 16:30 Isosorbide Mononitrate (Imdur) 30 mg DAILY PO Last administered on 07/12/18 08:59; Admin Dose 30 MG; Start 07/10/18 at 21:00 Clopidogrel Bisulfate (plaVIX) 75 mg DAILY PO Last administered on 07/12/18 08:59; Admin Dose 75 MG; Start 07/11/18 at 09:00 Insulin Aspart (Novolog Insulin Pen) 10 unit WITH MEALS SC ; Start 07/12/18 at 17:55 Insulin Glargine (Lantus) 32 units QHS SC Last administered on 07/12/18 20:57; Admin Dose 32 UNITS; Start 07/12/18 at 21:00 TABITHA COVINGTON MD Jul 13, 2018 08:10
[2018-07-13] MEDS: DULOXETINE 30 MG CAP DR PO SCH (08:35)
[2018-07-13] MEDS: FENOFIBRATE 145 MG TAB PO SCH (08:44)
[2018-07-13] MEDS: SEVELAMER CARBONATE 0.8 GM PKT PO SCH ×3 (08:44→17:30)
[2018-07-13] MEDS: DOCUSATE SODIUM 250 MG CAP PO SCH ×2 (08:44→21:00)
[2018-07-13] MEDS: EZETIMIBE 10 MG TAB PO SCH (08:44)
[2018-07-13] MEDS: ASPIRIN 81 MG TAB PO SCH (08:44)
[2018-07-13] MEDS: FISH OIL 1,000 MG CAP PO SCH ×2 (08:44→21:00)
[2018-07-13] MEDS: CLOPIDOGREL 75 MG TAB PO SCH (08:45)
[2018-07-13] MEDS: ECONAZOLE TOP SCH (08:47)
[2018-07-13] MEDS: FLUTICASONE/VILANTEROL 100-25 INH SCH (08:47)
[2018-07-13] MEDS: ISOSORBIDE MONONITRATE(SR)30 MG TAB PO SCH (08:48)
[2018-07-13] MEDS: AMITRIPTYLINE 50 MG TAB PO SCH (08:52)
[2018-07-13] MEDS: PREGABALIN 50 MG CAP PO SCH ×2 (08:53→21:00)
[2018-07-13] MEDS: FLUOCINONIDE 0.05% CR 30GM TUBE TOP SCH (09:00)
--- NOTE | 2018-07-13 09:15 | CONS ---
Assessment/Plan Assessment/Plan Hospital Course (Demo Recall) Unstable angina/CAD: complex three vessel CAD with ostial LAD, ostial OM, and occluded prox [employer]. In setting of DM, cardiomyopathy, and three vessel CAD, CABG would generally be appropriate. However decision made that pt is too high risk for CABG and should have PCI at a tertiary center should he need Impella or mechanical support. Hypotension:Resolved Neck pain: may be musculoskeletal. Improved Chronic systolic heart failure: currently euvolemic Ischemic cardiomyopathy EF 20% prior report but echo here shows EF 35-40% s/p ICD for secondary prevention Paroxysmal atrial fibrillation Severe PAD s/p prior bypass: occluded bypass on cath 07/06/18 s/p right transmetatarsal amputation ESRD on HD Uncontrolled DM HTN COPD Burn wound/cellulitis depression Likely noncompliance -awaiting transfer to [facility] for high risk PCI -ASA -plavix -continue to hold Eliquis for now -hold coreg and benazepril 10mg -lasix 80mg PO BID was d/c-ed -lipitor 80mg, zetia -HD per nephrology Consultation Date/Type/Reason Admit Date/Time Jul 04, 2018 at 20:45 Initial Consult Date 07/05/18 Type of Consult Cardiology Date/Time of Note DATE: 07/13/18 TIME: 09:14 24 HR Interval Summary Free Text/Dictation No events. Waiting for transfer. K 6.2 this am. Will have HD Exam/Review of Systems Vital Signs Vitals Vital Signs Date Temp Pulse Resp B/P (MAP) Pulse Ox O2 O2 Flow FiO2 Time Delivery Rate 07/13/18 98.2 95 19 116/74 93 08:03 (88) 07/12/18 3.0 21:06 07/12/18 Nasal 20:40 Cannula Intake and Output 07/12/18 07/12/18 07/13/18 1414:59 22:59 06:59 IntakeIntake Total 780 ml 500 ml BalanceBalance 780 ml 500 ml Exam Constitutional: alert, oriented Psych: no complaints, nl mood/affect Head: normocephalic, atraumatic Neck: No jvd Respiratory: diminished breath sounds; No clear to auscultation Cardiovascular: regular rate and rhythm; No edema Gastrointestinal: soft, non-tender, distended Neurological: nl mental status, nl speech Labs Result Diagram: 07/13/18 0629 07/13/18 0629 Results 24hrs Laboratory Tests Test 07/12/18 11:52 07/12/18 12:43 07/12/18 17:45 07/12/18 17:51 Bedside Glucose 74 47 *L 50 L Potassium Level 5.4 H Test 07/12/18 18:17 07/12/18 20:07 07/12/18 20:46 07/13/18 01:01 Bedside Glucose 85 219 150 Glucose Level 214 # Test 07/13/18 02:49 07/13/18 06:29 07/13/18 07:52 Bedside Glucose 106 101 White Blood Count 10.1 Red Blood Count 3.26 L Hemoglobin 9.8 L Hematocrit 33.1 L Mean Corpuscular 101.5 H Volume Mean Corpuscular 30.1 Hemoglobin Mean Corpuscular 29.6 L Hemoglobin Concent Red Cell 14.7 H Distribution Width Platelet Count 261 Mean Platelet Volume 10.4 Immature 1.900 H Granulocytes % Neutrophils % 75.8 Lymphocytes % 12.5 L Monocytes % 7.4 Eosinophils % 1.7 Basophils % 0.7 Nucleated Red Blood 0.0 Cells % Immature 0.190 H Granulocytes # Neutrophils # 7.7 H Lymphocytes # 1.3 Monocytes # 0.8 Eosinophils # 0.2 Basophils # 0.1 Nucleated Red Blood 0.0 Cells # Sodium Level 139 Potassium Level 6.2 *H Chloride Level 99 Carbon Dioxide Level 25 Anion Gap 15 H Blood Urea Nitrogen 70 H Creatinine 6.22 H Est Glomerular 9 L Filtrat Rate mL/min Glucose Level 105 # Calcium Level 9.8 Phosphorus Level 8.5 H Medications Medications Current Medications Amitriptyline HCl (Elavil) 50 mg DAILY PO Last administered on 07/13/18at 08:52; Admin Dose 50 MG; Start 07/05/18 at 09:00 Atorvastatin Calcium (Lipitor) 80 mg QHS PO Last administered on 07/12/18 20:49; Admin Dose 80 MG; Start 07/05/18 at 21:00 Cyclobenzaprine HCl (Flexeril) 10 mg Q6H PO Last administered on 07/13/18 06:37; Admin Dose 10 MG; Start 07/05/18 at 00:30 Docusate Sodium (Colace) 250 mg BID PO Last administered on 07/13/18at 08:44; Admin Dose 250 MG; Start 07/05/18 at 09:00 Duloxetine HCl (Cymbalta) 60 mg DAILY PO Last administered on 07/13/18 08:35; Admin Dose 60 MG; Start 07/05/18 at 09:00 Econazole Nitrate (Spectazole 1% Cr) 15 applic DAILY TOP Last administered on 07/13/18 08:47; Admin Dose 15 APPLIC; Start 07/05/18 at 09:00 EZETIMIBE (Zetia) 10 mg DAILY PO Last administered on 07/13/18 08:44; Admin Dose 10 MG; Start 07/05/18 at 09:00 Fluocinonide (Lidex 0.05% Cr) 1 applic DAILY TOP Last administered on 07/12/18 09:01; Admin Dose 1 APPLIC; Start 07/05/18 at 09:00 Sevelamer Carbonate (Renvela) 1.6 gm WITH MEALS PO Last administered on 07/13/18 08:44; Admin Dose 1.6 GM; Start 07/05/18 at 07:55 Fenofibrate (Tricor) 145 mg DAILY PO Last administered on 07/13/18 08:44; Admin Dose 145 MG; Start 07/05/18 at 09:00 Tamsulosin HCl (Flomax) 0.4 mg HS PO Last administered on 07/12/18 20:49; Admin Dose 0.4 MG; Start 07/05/18 at 21:00 Zolpidem Tartrate (Ambien) 10 mg HS PRN PO INSOMNIA Last administered on 07/12/18 02:47; Admin Dose 10 MG; Start 07/05/18 at 01:00 Pregabalin (Lyrica) 50 mg BID PO Last administered on 07/13/18 08:53; Admin Dose 50 MG; Start 07/05/18 at 09:00 Lactulose (Enulose) 10 gm DAILY PRN PO CONSTIPATION; Start 07/05/18 at 01:00 Ondansetron HCl (Zofran Tab) 8 mg Q6H PRN PO NAUSEA AND/OR VOMITING; Start 07/05/18 at 01:00 Albuterol/ Ipratropium (Duoneb) 3 ml Q8H RESP THERAPY PRN HHN SHORTNESS OF BREATH; Start 07/05/18 at 01:00 Acetaminophen (Tylenol Tab) 500 mg Q6H PRN PO MILD PAIN(1-3)OR ELEVATED TEMP Last administered on 07/11/18 08:49; Admin Dose 500 MG; Start 07/05/18 at 01:00 Morphine Sulfate (morphine) 2 mg Q3 PRN IV SEVERE PAIN LEVEL 7-10 Last administered on 07/13/18 08:59; Admin Dose 2 MG; Start 07/05/18 at 01:00 Fluticasone/ Vilanterol (Breo Ellipta 100-25 Mcg Inh) 1 inh DAILY INH Last administered on 07/13/18 08:47; Admin Dose 1 INH; Start 07/05/18 at 09:00 Fish Oil (Fish Oil) 1,000 mg BID PO Last administered on 07/13/18 08:44; Admin Dose 1,000 MG; Start 07/05/18 at 09:00 Promethazine HCl/ Dextromethorphan (Phenergan-Dm) 5 ml Q4H PRN PO COUGH; Start 07/09/18 at 15:00 Aspirin (Aspirin) 81 mg DAILY PO Last administered on 07/13/18 08:44; Admin Dose 81 MG; Start 07/07/18 at 09:00 Heparin Sodium (Porcine) (Heparin (1000 Units/ml)) 4,000 unit AFTER DIALYSIS CATHETER ; Start 07/08/18 at 16:30 Albumin Human 50 ml @ 100 mls/hr WITH DIALYSIS PRN IV SBP < 90 DURING DIALYSIS Last administered on 07/09/18 14:07; Admin Dose 100 MLS/HR; Start 07/08/18 at 16:30 Isosorbide Mononitrate (Imdur) 30 mg DAILY PO Last administered on 07/12/18 08:59; Admin Dose 30 MG; Start 07/10/18 at 21:00 Clopidogrel Bisulfate (plaVIX) 75 mg DAILY PO Last administered on 07/13/18 08:45; Admin Dose 75 MG; Start 07/11/18 at 09:00 Insulin Aspart (Novolog Insulin Pen) 10 unit WITH MEALS SC ; Start 07/12/18 at 17:55 Insulin Glargine (Lantus) 32 units QHS SC Last administered on 07/12/18 20:57; Admin Dose 32 UNITS; Start 07/12/18 at 21:00 TAHIRA BUCHANAN Jul 13, 2018 09:15
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
[2018-07-13] MEDS ORDERED: AMIODARONE 150MG/D5W BOLUS 100 ML ONE (19:03)
[2018-07-13] MEDS ORDERED: HEPARIN 1000 UNITS/ML 10 ML INJ ONE (19:38)
[2018-07-13] MEDS ORDERED: MIDAZOLAM 1 MG/ML 2 ML INJ ONE (19:38)
[2018-07-13] MEDS ORDERED: IOHEXOL 350MG/ML 50 ML BTL ONE (19:38)
[2018-07-13] MEDS ORDERED: LIDOCAINE 1% (MDV) 20 ML INJ ONE (19:38)
[2018-07-13] MEDS ORDERED: IODIXANOL LOCM 100 ML BTL ONE (19:38)
[2018-07-13] MEDS ORDERED: HEPARIN 1000 UNITS/NS (A-LINE) 2,000 ML ONE (19:38)
[2018-07-13] MEDS ORDERED: FENTAnyl 50 MCG/ML VIAL ONE (19:38)
[2018-07-13] MEDS ORDERED: VERAPAMIL 5 MG INJ ONE (19:39)
[2018-07-13] MEDS ORDERED: NITROGLYCERIN (IC) 100 MCG/ML INJ ONE (19:39)
[2018-07-13] MEDS ORDERED: SOD CHLORIDE 0.9% 1,000 ML ONE (19:39)
[2018-07-13] MEDS ORDERED: TICAGRELOR 90 MG TABLET ONE (20:05)
--- NOTE | 2018-07-13 20:21 | EN ---
Date/Time of Note Date/Time of Note DATE: 07/13/18 TIME: 20:14 ER Progress Note I was called to the patient's bedside because of a CODE BLUE. In short: I was called to the patient's bedside because of a CODE BLUE. The patient has a history of severe coronary disease and was being transferred to [facility] for complex cardiac revascularization. The patient had asystolic cardiac arrest. Upon my arrival ACLS was initiated. The patient did not have an a irway. General: Unresponsive, patient getting chest compressions Head: Normocephalic, atraumatic Eyes: Fixed and dilated pupils ENT: Moist mucous membranes Neck: Supple, no lymphadenopathy Respiratory: No spontaneous respiratory activity Cardiovascular: No spontaneous cardiac activity Abdominal: Soft, non-protuberant, no pulsatile mass : Deferred MSK: No spontaneous motor activity Neurologic: No spontaneous neurologic activity Skin: No evidence of trauma Cardiopulmonary Resuscitation by me: See code documentation for specific details. ACLS and BLS were performed with high quality chest compressions and minimal interruptions. Reversible causes were assessed and treated. PROCEDURE(S): Intubation Note: Indication: Airway protection Consent: This was an emergent situation, implied consent was observed RSI Medications: Not required Tube size: 7.5 Secured at: 23 of the corner of the mouth Procedure: Endotracheal intubation was performed. The patient was preoxygenated with supplemental oxygen, the room was set up with emergency airway equipment including [id number], suction, and adjunct airways. Direct visualization of the cords was performed with direct laryngoscopy using video laryngoscope, insertion of the endotracheal tube through the cords was vi sualized. Bilateral breath sounds were auscultated, color change was observed. The tube was then secured in a postintubation chest x-ray was ordered. The patient tolerated the procedure well there were no complications. Central Line Note: Consent: Critical patient, unable to obtain informed consent Indication: Critically ill patient requiring specialized vascular access for f luid or pressor management Location: Left femoral vein access Indication: No IV, difficult access Procedure: The patient had extremely difficult anatomy, significant scarring in the bilateral groins. Left groin access was attempted because of patient likely going to the Flight Engineer Inspector. Using anatomic technique unfortunately the patient had very difficult anatomy. There was arterial puncture x2 without dilation, pressure was held without significant hematoma. Venipuncture was obtained x1, wire was threaded without difficulty but I was unable to dilate past the dermal layer. There is significant scar tissue in the central line was aborted. Wire was removed intact. Pressure held. No hematoma. Intraosseous Line Placement by me: Anesthesia: None Location: Anteromedial, Proximal Tibia 1-3 cm below Tibial tuberosity on left leg Device: EZ-IO Needle blue 2.5 cm, Technique: EZ-IO Drill Results: Bone Marrow Aspirated, No extravasation Complications: No evidence of extravasation, compartment syndrome, growth plate damage, or fat embolism Emergency Bedside Ultrasound: Indication: Central line Probe Type: Linear Findings: Dynamic ultrasound utilizing compressive technique with both linear and horizontal views. The patient tolerated the procedure well and there were no complications. CODE BLUE events: * The patient was a very difficult code. He was initially asystole. The patient received multiple doses of medication including epinephrine, calcium, bicarbonate. * The patient continued to evolve into PEA. The patient was given magnesium. * Eventually the patient seems to evolve into ventricular fibrillation and was defibrillated 200 J several times. Approximately 3 but see nursing documentation for actual event. * The patient seemed to be continually defibrillated by his own defibrillator with multiple shocks observed at the bedside. * The patient was intubated early in the code. See above documentation. * Intermittently we would have return of spontaneous circulation with the patient would quickly devolve into ventricular fibrillation requiring defibrillation and resumption of chest compressions and ACLS. * I was able to contact Dr. Parks, the patient's corrugator, we discussed the case. I decision was that if the patient stabilized for period of time we would activate the Flight Engineer Inspector as his only chance of survival was potentially opening up a large vessel. * We had return of spontaneous circulation. The patient had a central line that was aborted as documented above given difficult anatomy. An A-line was placed. * The patient had been given amio bolus during code resuscitation. Magnesium x2. Multiple doses of calcium and bicarbonate. Amio drip initiated. * Patient is a hypothermia candidate if he survives. The patient's most pressing need is to go to the Flight Engineer Inspector. Dr. Parks notified, to the bedside and will take the patient to the Flight Engineer Inspector. * The family was updated and informed. They understand significant risk for mortality. Disposition: Patient emergently taken to the Flight Engineer Inspector Diagnostic impression: Ventricular fibrillation Cardiac arrest Acute respiratory failure Critical Care Note: Total time: 45 minutes Indication/Organ System Threat: Cardiac arrest I spent the above amount of critical care time with the patient, not including billable procedures. This included chart review, consultations, repeat bedside evaluations, and titration of appropriate medications to prevent cardiopulmonary or respiratory collapse. TABITHA EMERY MD Jul 13, 2018 20:21
[2018-07-13] MEDS ORDERED: BIVALIRUDIN 250MG /NS 50 ML 50 ML IVPB ONE ×2 (20:31→21:09)
[2018-07-13] MEDS: INSULIN GLARGINE [LANTus] (100 UNITS/ML) SYG SC SCH (21:00)
[2018-07-13] MEDS: TAMSULOSIN (SR) 0.4 MG CAP PO SCH (21:00)
[2018-07-13] MEDS: ATORVASTATIN 80 MG TAB PO SCH (21:00)
--- NOTE | 2018-07-13 21:40 | OPR ---
Date/Time of Note Date/Time of Note DATE: 07/13/18 TIME: 21:37 Operative Report Preoperative Diagnosis VF cardiac arrest Postoperative Diagnosis same s/p PCI of OM and distal left main into proximal LAD. Operation/Procedure Performed see details Surgeon see signature line Real Estate Office Supervisor none Anesthesia Type: moderate sedation Estimated Blood Loss: minimal Transfusion none Specimen none Grafts/Implants none Complications none Procedure Description Procedure Date:07/13/2018 Director Of Employer Services/surgeon: Napoleon Parks MD. Procedures Performed: 1)Emergent Left heart catheterization with selective left coronary angiography. 2)Balloon angioplasty and stenting of the prox OM with a Synergy 2.5 x 12 stent. 3)Balloon angioplasty and stenting of the distal left main extending into the prox LAD with a Xience 3.0 x 18 stent. 4)Placement of central venous catheter right femoral vein 5)Insertion of intraaortic balloon pump Pre-operative Diagnosis: cardiac arrest, VFib Post-operative Diagnosis:same s/p high risk PCI Indications: 63 yo M who had presented with chest pain with normal troponins. Workup revealed previously known occluded RCA as well as new finding of ostial LAD 95% and OM 80%. He was referred for CABG. He was thought to be a poor candidate for CABG and recommended to have high risk PCI and arrangements had been made for transfer to [facility] per pt and family request. The patient had been asymptomatic. While awaiting transfer, the pt had VF cardiac arrest requiring prolonged CPR and multiple defibrillations. Post ROSC EKG showed diffuse ST depressions consistent with global ischemia. The decision was made to proceed with emergent cardiac cath for revascularization Description of Procedure: The procedure site was prepped and draped in usual manner. A right femoral vein central venous triple lumen catheter was placed. Next using the Seldinger technique, the 7 dutch sheath was inserted into the left femoral artery. Next using the 7 dutch Voda 3.5 guide, selective an giography of the left coronary artery was obtained. The anatomy was unchanged from prior. After appropriate anticoagulation and antiplatelets were given, the BMW angioplasty wire was advanced past the OM lesion and a PT moderate wire across the LAD lesion. Next the 2.0 X 8 balloon was used to dilate the OM lesion. Subsequently, the Synergy 2.5 x 12 stent was advanced to the lesion and deployed at 12 navin. Next the stent was post dilated with the 2.75 X 8 noncompliant balloon. Next attention was directed to the ostial LAD. It was dilated with the 2.0 x 12 balloon. Then the Xience 3.0 x 18 stent was advanced to the lesion. The BMW wire was removed from the Cx/OM. The stent was deployed covering from the mid left main into the proximal LAD. Angiography revealed YADIRA 3 flow both in the LAD and Cx. Next the prox LAD and ostial LAD portions were dilated with the NC 3.25 x 8 balloon x 2 and the left main portion with the NC 3.5 x 8 balloon. Final angiography revealed YADIRA 3 flow, no edge dissection, and appropriate stent expansion. LVEDP was checked with a pigtail catheter. It was elevated at 33 mmHg. Therefore, the left femoral artery sheath was exchanged for an IABP sheath and through this the IABP was positioned at the aortic arch. IABP was augmenting appropriately. Findings: Anatomy/Hemodynamics: From prior diagnostic cath Left main:distal 30% LAD: ostial eccentric hazy 95%, prox stent patent Diagonal: ostial 60% jailed by LAD stent Circumflex:prox 50-60% at OM takeoff Obtuse marginal: ostial 70-80% immediately before patent prox stent RCA known occluded with left-right collaterals LVEDP: 33mmHg Contrast used:130 mL Medications used: Angiomax Brilinta 180mg Equipment used: 7 dutch Voda 3.5 guide BMW and PT moderate angioplasty wire 2 x 8 and 2 x 12 balloon Synergy 2.5 x 12 drug eluting stent (OM) Xience 3.0 x 18 drug eluting stent (distal left main into LAD) 2.75 x 8, 3.25 x 8, 3.5 x 8 noncompliant balloons Estimated blood loss<10 mL. Specimen: none Grafts/implants: none Complications: none Assessment: VF cardiac arrest due to ischemia: s/p PCI of OM and left main into LAD. Cardiogenic shock: pressures ok but elevated LVEDP and ischemia induced VF so IABP placed Acute respiratory failure Plan: -hypothermia per protocol -angiomax x 4 hours, will be treated as a STEMI equivalent and as it was a high risk PCI -brilinta 90mg BID at least one year, possibly longer with left main stent -ASA -further management depending on hospital course NAPOLEON PARKS Jul 13, 2018 21:40
[2018-07-13] MEDS ORDERED: VECURONIUM 100 MG in DEXTROSE 5% 100 ML IV SCH (23:00)
[2018-07-13] MEDS: PROPOFOL 100 ML IV PRN (23:15)
[2018-07-14] VITALS (100 sets, daily range): BP systolic 84–190; BP diastolic 26–94; PULSE 60–81; RESP 17–18
[2018-07-14] MEDS ORDERED: INSULIN HUMAN REGULAR 100 UNIT in SOD CHLORIDE 0.9% 99 ML IV SCH ×2
[2018-07-14] MEDS ORDERED: DEXTROSE 50% 50 ML SYRINGE IV PRN
[2018-07-14] MEDS: ACCU-CHEK XX SCH ×24 (00:03→23:00)
[2018-07-14] MEDS: FENTAnyl (DRIP) 1000 mcg/100mL 100 ML IV PRN ×2 (00:04→18:49)
[2018-07-14] MEDS: CYCLOBENZAPRINE 10 MG TAB PO SCH ×4 (00:30→18:30)
[2018-07-14] MEDS: AMIODARONE 900 MG in DEXTROSE 5% 482 ML IV SCH (01:18)
[2018-07-14] MEDS ORDERED: ACETAMINOPHEN 650 MG SUPP PR PRN (03:00)
[2018-07-14] MEDS ORDERED: ACETAMINOPHEN 650MG/20.3ML CUP NGT PRN (03:00)
[2018-07-14] MEDS ORDERED: MEPERIDINE 25 MG INJ IV PRN ×2 (03:00)
[2018-07-14] MEDS: PROPOFOL 100 ML IV PRN ×3 (05:32→18:55)
[2018-07-14] MEDS: ARTIFICIAL TEARS 15 ML OPH BOTH EYES SCH ×6 (05:35→21:37)
[2018-07-14] MEDS: OCULAR LUBRICANT 3.5 GM OPH OINT BOTH EYES SCH ×3 (05:35→18:34)
[2018-07-14] MEDS ORDERED: NORepinephrine 8MG/250 ML (PMX 250 ML ONE (06:09)
[2018-07-14] MEDS: NORepinephrine 8MG/250 ML (PMX 250 ML IV PRN (06:19)
[2018-07-14] MEDS: SEVELAMER CARBONATE 0.8 GM PKT PO SCH (07:35)
--- NOTE | 2018-07-14 08:31 | CONS ---
Assessment/Plan Assessment/Plan Hospital Course (Demo Recall) Cardiac arrest: initial rhythm PEA and then VT/VF during code. Unclear what incited the initial event, possibly still global ischemia or hypoxia. Now s/p emergent PCI and on hypothermia protocol Cardiogenic shock: IABP placed during cath Acute respiratory failure: intubated during code Unstable angina/CAD: complex three vessel CAD with ostial LAD, ostial OM, and occluded prox RCA [employer]. In setting of DM, cardiomyopathy, and three vessel CAD, CABG would generally be appropriate. However decision made that pt is too high risk for CABG and should have PCI at a tertiary center should he need Impella or mechanical support. Unfortunately he had cardiac arrest while awaiting transfer and had to have emergent PCI with complete revascularization of his left system with PCI to OM and left main into LAD. 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 Chronic systolic heart failure Ischemic cardiomyopathy EF 20% prior report but echo here shows EF 35-40% s/p ICD for secondary prevention Paroxysmal atrial fibrillation Severe PAD s/p prior bypass: occluded bypass on cath 07/06/18 s/p right transmetatarsal amputation ESRD on HD Uncontrolled DM HTN COPD Burn wound/cellulitis depression Likely noncompliance -continue IABP -levophed as needed to maintain augmentation >100 -hypothermia per protocol -continue amiodarone drip at 0.5 -ASA -Brilinta 90mg BID -continue to hold Eliquis for now -hold coreg and benazepril 10mg -lipitor 80mg, zetia -HD per nephrology >40 min CC time Consultation Date/Type/Reason Admit Date/Time Jul 04, 2018 at 20:45 Initial Consult Date 07/05/18 Type of Consult Cardiology Date/Time of Note DATE: 07/14/18 TIME: 08:17 24 HR Interval Summary Free Text/Dictation Yesterday pt had PEA arrest as initiating event then had multiple VF/VT episodes requiring defibrillation. After ROSC was achieved, he was emergently taken [facility] and had PCI of OM and LM/LAD. IABP was placed and hypothermia initiated. Overnight he is stable. On just 1mcg levophed, augmenting well on IABP. Trops rising to 9 as expected. Lactate improved Exam/Review of Systems Vital Signs Vitals Vital Signs Date Temp Pulse Resp B/P (MAP) Pulse Ox O2 O2 Flow FiO2 Time Delivery Rate 07/14/18 89.5 60 18 105/47 100 07:00 (66) 07/14/18 Mechanical 06:45 Ventilator 07/14/18 50 05:40 07/13/18 3.0 12:15 Intake and Output 07/13/18 07/13/18 07/14/18 1414:59 22:59 06:59 IntakeIntake Total 213.037 ml OutputOutput Total 2400 ml 200 ml BalanceBalance -2400 ml 13.037 ml Exam Constitutional: No alert ENMT: intubated Neck: supple; No jvd (unabel to assess) Respiratory: No clear to auscultation Cardiovascular: regular rate and rhythm; No edema Gastrointestinal: soft; No distended Neurological: No nl mental status, No nl speech Labs Result Diagram: 07/14/18 0453 07/14/18 0453 Results 24hrs Laboratory Tests Test 07/13/18 11:44 07/13/18 13:18 07/13/18 17:08 07/13/18 18:38 Bedside Glucose 72 86 97 101 Test 07/13/18 19:42 07/13/18 20:45 07/13/18 23:46 07/14/18 00:21 White Blood 13.2 #H 16.3 #H Count Red Blood Count 3.28 L 3.18 L Hemoglobin 9.8 L 9.5 L Hematocrit 34.2 L 31.5 L Mean Corpuscular 104.3 H 99.1 Volume Mean Corpuscular 29.9 29.9 Hemoglobin Mean Corpuscular 28.7 L 30.2 L Hemoglobin Irma nt Red Cell 14.7 H 14.6 H Distribution Width Platelet Count 266 259 Mean Platelet 10.9 H 10.8 H Volume Immature 6.100 H 4.400 H Granulocytes % Neutrophils % 65.0 87.3 H Lymphocytes % 21.9 2.9 L Monocytes % 5.2 4.8 Eosinophils % 1.0 0.2 Basophils % 0.8 0.4 Nucleated Red 0.0 0.0 Blood Cells % Immature 0.800 H 0.720 H Granulocytes # Neutrophils # 8.6 H 14.3 H Lymphocytes # 2.9 0.5 L Monocytes # 0.7 0.8 Eosinophils # 0.1 0.0 Basophils # 0.1 0.1 Nucleated Red 0.0 0.0 Blood Cells # Sodium Level 139 135 Potassium Level 4.9 5.6 H Chloride Level 92 L 93 L Carbon Dioxide 27 22 Level Anion Gap 20 H 20 H Blood Urea 38 #H 49 #H Nitrogen Creatinine 4.20 #H 4.43 H Est Glomerular 15 L 14 L Filtrat Rate mL/min Glucose Level 168 240 H Lactic Acid 7.8 *H 1.4 Level Calcium Level 10.7 H 9.6 Phosphorus Level 10.0 H 8.0 #H Magnesium Level 3.5 H 2.8 H Total Bilirubin 0.2 Direct Bilirubin 0.00 Indirect 0.2 Bilirubin Aspartate Amino 294 H Transf (AST/SGOT ) Alanine 66 Aminotransferase (ALT/SGPT) Alkaline 113 Phosphatase Creatine Kinase 85 Creatine Kinase 7.4 Index Creatinine 6.25 H Kinase MB (Mass) Troponin I 0.111 3.910 *H Total Protein 6.9 Albumin 4.0 Globulin 2.90 Albumin/Globulin 1.37 Ratio Blood Gas Blood arterial Specimen Source Arterial Blood 07/13/2018 8:55: Date Drawn 48 PM Arterial Blood 7.413 pH (Temp corrected) Arterial Blood 44.3 pCO2 (Temp correct) Arterial Blood 86.7 pO2 (Temp corrected) Arterial Blood 27.6 H HCO3 Arterial Blood 2.7 Base Excess Arterial Blood 95.9 Oxygen Saturatio n Vin Test N/A Arterial Blood A-Line Gas Puncture Site Arterial 0.1 Blood Carboxyhem oglobin Arterial Blood 0.3 Methemoglobin Blood Gas A-a O2 292.4 H Differential Oxyhemoglobin 95.5 Percent Blood Gas 37.0 Temperature Blood Gas 18.0 Respiration Rate Blood Gas Actual 18 Respiration Rate Blood Gas VENT - AC Modality FiO2 60.0 Blood Gas Tidal 550.0 Volume Blood Gas Low 5.0 PEEP Setting Blood Gas RI Notified Whom Blood Gas 07/13/2018 9:04: Notified Time 46 PM Bedside Glucose 235 H Prothrombin Time 31.6 #H Prothrombin Time 2.5 Ratio INR 3.05 International Normalized Ratio Activated > 180.0 *H Partial Thrombop last Time Fibrinogen 660.0 H Amylase Level 40 Lipase 55 Test 07/14/18 00:40 07/14/18 01:48 07/14/18 02:00 07/14/18 02:52 Bedside Glucose 200 243 H 206 Blood Gas Blood arterial Specimen Source Arterial Blood 07/14/2018 2:20: Date Drawn 29 AM Arterial Blood 7.361 pH (Temp corrected) Arterial Blood 41.2 pCO2 (Temp correct) Arterial Blood 106.7 H pO2 (Temp corrected) Arterial Blood 23.4 HCO3 Arterial Blood -2.6 Base Excess Arterial Blood 97.6 Oxygen Saturatio n Vin Test N/A Arterial Blood A-Line Gas Puncture Site Arterial 0.1 Blood Carboxyhem oglobin Arterial Blood 0 Methemoglobin Blood Gas A-a O2 206.3 H Differential Oxyhemoglobin 97.5 Percent Blood Gas 34.6 Temperature Blood Gas 18.0 Respiration Rate Blood Gas Actual 18 Respiration Rate Blood Gas VENT - AC Modality FiO2 50.0 Blood Gas Tidal 550.0 Volume Blood Gas Low 5.0 PEEP Setting Blood Gas D [facility] Notified Whom Blood Gas 07/14/2018 2:27: Notified Time 03 AM Test 07/14/18 03:49 07/14/18 04:53 07/14/18 04:55 07/14/18 05:57 Bedside Glucose 178 213 155 White Blood 14.4 H Count Red Blood Count 3.23 L Hemoglobin 9.7 L Hematocrit 32.1 L Mean Corpuscular 99.4 Volume Mean Corpuscular 30.0 Hemoglobin Mean Corpuscular 30.2 L Hemoglobin Irma nt Red Cell 14.7 H Distribution Width Platelet Count 234 Mean Platelet 10.8 H Volume Immature 4.500 H Granulocytes % Neutrophils % 84.7 H Lymphocytes % 6.6 L Monocytes % 3.8 Eosinophils % 0.2 Basophils % 0.2 Nucleated Red 0.0 Blood Cells % Immature 0.650 H Granulocytes # Neutrophils # 12.2 H Lymphocytes # 0.9 Monocytes # 0.6 Eosinophils # 0.0 Basophils # 0.0 Nucleated Red 0.0 Blood Cells # Prothrombin Time 26.0 H Prothrombin Time 2.0 Ratio INR 2.37 International Normalized Ratio Activated 157.4 *H Partial Thrombop last Time Fibrinogen 678.0 H Sodium Level 138 Potassium Level 5.2 H Chloride Level 93 L Carbon Dioxide 30 Level Anion Gap 15 H Blood Urea 51 H Nitrogen Creatinine 4.92 H Est Glomerular 12 L Filtrat Rate mL/min Glucose Level 154 Lactic Acid 2.4 *H Level Calcium Level 9.7 Phosphorus Level 8.7 H Magnesium Level 2.9 H Troponin I 9.150 *H Amylase Level 42 Lipase 80 Test 07/14/18 06:50 07/14/18 08:00 Bedside Glucose 136 Blood Gas Blood arterial Specimen Source Arterial Blood 07/14/2018 8:04: Date Drawn 33 AM Arterial Blood 7.563 *H pH (Temp corrected) Arterial Blood 30.6 L pCO2 (Temp correct) Arterial Blood 103.5 H pO2 (Temp corrected) Arterial Blood 28.2 H HCO3 Arterial Blood 4.5 H Base Excess Arterial Blood 98.0 Oxygen Saturatio n Vin Test N/A Arterial Blood A-Line Gas Puncture Site Arterial 0.3 Blood Carboxyhem oglobin Arterial Blood 0.3 Methemoglobin Blood Gas A-a O2 224.3 H Differential Oxyhemoglobin 97.4 Percent Blood Gas 31.9 Temperature Blood Gas 18.0 Respiration Rate Blood Gas Actual 18 Respiration Rate Blood Gas VENT - AC Modality FiO2 50.0 Blood Gas Tidal 550.0 Volume Blood Gas Low 5.0 PEEP Setting Blood Gas G. TAGUBA RN Critical Value Read Back Blood Gas M.Lynn Notified Whom Blood Gas 07/14/2018 8:15: Notified Time 47 AM Medications Medications Current Medications Amitriptyline HCl (Elavil) 50 mg DAILY PO Last administered on 07/13/18 08:52; Admin Dose 50 MG; Start 07/05/18 at 09:00 Atorvastatin Calcium (Lipitor) 80 mg QHS PO Last administered on 07/12/18 20:49; Admin Dose 80 MG; Start 07/05/18 at 21:00 Cyclobenzaprine HCl (Flexeril) 10 mg Q6H PO Last administered on 07/13/18 17:30; Admin Dose 10 MG; Start 07/05/18 at 00:30 Docusate Sodium (Colace) 250 mg BID PO Last administered on 07/13/18 08:44; Admin Dose 250 MG; Start 07/05/18 at 09:00 Duloxetine HCl (Cymbalta) 60 mg DAILY PO Last administered on 07/13/18 08:35; Admin Dose 60 MG; Start 07/05/18 at 09:00 Econazole Nitrate (Spectazole 1% Cr) 15 applic DAILY TOP Last administered on 07/13/18 08:47; Admin Dose 15 APPLIC; Start 07/05/18 at 09:00 EZETIMIBE (Zetia) 10 mg DAILY PO Last administered on 07/13/18 08:44; Admin Dose 10 MG; Start 07/05/18 at 09:00 Fluocinonide (Lidex 0.05% Cr) 1 applic DAILY TOP Last administered on 07/13/18 09:00; Admin Dose 1 APPLIC; Start 07/05/18 at 09:00 Sevelamer Carbonate (Renvela) 1.6 gm WITH MEALS PO Last administered on 07/13/18 17:30; Admin Dose 1.6 GM; Start 07/05/18 at 07:55 Fenofibrate (Tricor) 145 mg DAILY PO Last administered on 07/13/18 08:44; Admin Dose 145 MG; Start 07/05/18 at 09:00 Tamsulosin HCl (Flomax) 0.4 mg HS PO Last administered on 07/12/18 20:49; Admin Dose 0.4 MG; Start 07/05/18 at 21:00 Zolpidem Tartrate (Ambien) 10 mg HS PRN PO INSOMNIA Last administered on 07/12/18 02:47; Admin Dose 10 MG; Start 07/05/18 at 01:00 Pregabalin (Lyrica) 50 mg BID PO Last administered on 07/13/18 08:53; Admin Dose 50 MG; Start 07/05/18 at 09:00 Lactulose (Enulose) 10 gm DAILY PRN PO CONSTIPATION; Start 07/05/18 at 01:00 Ondansetron HCl (Zofran Tab) 8 mg Q6H PRN PO NAUSEA AND/OR VOMITING; Start 07/05/18 at 01:00 Albuterol/ Ipratropium (Duoneb) 3 ml Q8H RESP THERAPY PRN HHN SHORTNESS OF BREATH; Start 07/05/18 at 01:00 Acetaminophen (Tylenol Tab) 500 mg Q6H PRN PO MILD PAIN(1-3)OR ELEVATED TEMP Last administered on 07/11/18 08:49; Admin Dose 500 MG; Start 07/05/18 at 01:00 Morphine Sulfate (morphine) 2 mg Q3 PRN IV SEVERE PAIN LEVEL 7-10 Last administered on 07/13/18 08:59; Admin Dose 2 MG; Start 07/05/18 at 01:00 Fluticasone/ Vilanterol (Breo Ellipta 100-25 Mcg Inh) 1 inh DAILY INH Last administered on 07/13/18 08:47; Admin Dose 1 INH; Start 07/05/18 at 09:00 Fish Oil (Fish Oil) 1,000 mg BID PO Last administered on 07/13/18 08:44; Admin Dose 1,000 MG; Start 07/05/18 at 09:00 Promethazine HCl/ Dextromethorphan (Phenergan-Dm) 5 ml Q4H PRN PO COUGH; Start 07/09/18 at 15:00 Aspirin (Aspirin) 81 mg DAILY PO Last administered on 07/13/18 08:44; Admin Dose 81 MG; Start 07/07/18 at 09:00 Heparin Sodium (Porcine) (Heparin (1000 Units/ml)) 4,000 unit AFTER DIALYSIS CATHETER ; Start 07/08/18 at 16:30 Albumin Human 50 ml @ 100 mls/hr WITH DIALYSIS PRN IV SBP < 90 DURING DIALYSIS Last administered on 07/09/18at 14:07; Admin Dose 100 MLS/HR; Start 07/08/18 at 16:30 Amiodarone HCl 900 mg/Dextrose 500 ml @ 0 mls/hr Q0M IV Last administered on 07/14/18 01:18; Admin Dose 16.6 MLS/HR; Start 07/13/18 at 19:30 Ticagrelor (Brilinta) 90 mg BID PO ; Start 07/14/18 at 09:00 Propofol 100 ml @ 2.919 mls/ hr Q12H PRN IV AGITATION Last administered on 07/14/18 05:32; Admin Dose 14.57 MLS/HR; Start 07/13/18 at 23:00 Vecuronium [place] 100 mg/ Dextrose 100 ml @ 4.87 mls/hr TITRATE IV ; Start 07/13/18 at 23:00 Fentanyl 100 ml @ 2.5 mls/hr TITRATE PRN IV PAIN Last administered on 07/14/18 t 00:04; Admin Dose 5 MLS/HR; Start 07/13/18 at 23:30 Diagnostic Test (Pha) (Accu-Chek) 1 ea Q1H XX Last administered on 07/14/18at 06:52; Admin Dose 1 EA; Start 07/14/18 at 00:00 Insulin Human Regular 100 unit/ Sodium Chloride 100 ml @ 0 mls/hr PER PROTOCOL IV Last administered on 07/14/18at 00:49; Admin Dose 2 MLS/HR; Start 07/14/18 at 00:00 Miscellaneous Information (* Miscellaneous Pharmacy Order) Treatment of Hypoglycemia: 1.BG 51... Per protocol XX ; Start 07/14/18 at 00:00 Dextrose (D50w Syringe) 25 ml Q15M PRN IV .DECREASED GLUCOSE; Start 07/14/18 at 00:00 Dextrose (D50w Syringe) 50 ml Q15M PRN IV .DECREASED GLUCOSE; Start 07/14/18 at 00:00 Eye Lubricant (Artificial Tears Oph) 2 drop QID BOTH EYES Last administered on 07/14/18at 05:35; Admin Dose 2 DROP; Start 07/14/18 at 06:00 Eye Lubricant ([place]wa Oint) 1 applic Q6H BOTH EYES Last administered on 07/14/18at 05:35; Admin Dose 1 APPLIC; Start 07/14/18 at 06:00 Acetaminophen (Tylenol Supp) 650 mg Q4H PRN MO TEMP > 37C; Start 07/14/18 at 03:00 Acetaminophen (Tylenol Liquid) 650 mg Q4H PRN NGT TEMP > 37C; Start 07/14/18 at 03:00 Acetaminophen (Tylenol Supp) 500 mg Q6H MO ; Start 07/15/18 at 03:00 Acetaminophen (Tylenol Liquid) 500 mg Q6H NGT ; Start 07/15/18 at 03:00 Meperidine HCl (Demerol) 12.5 mg Q4H PRN IV POST OPERATIVE SHIVERING; Start 07/14/18 at 03:00 Meperidine HCl (Demerol) 25 mg Q4H PRN IV POST OPERATIVE SHIVERING; Start 07/14/18 at 03:00 Norepinephrine 250 ml @ 1.875 mls/ hr TITRATE PRN IV BLOOD PRESSURE SUPPORT Last administered on 07/14/18at 06:19; Admin Dose 9.375 MLS/HR; Start 07/14/18 at 06:30 TAHIRA BUCHANAN Jul 14, 2018 08:28
[2018-07-14] MEDS: FISH OIL 1,000 MG CAP PO SCH (09:00)
[2018-07-14] MEDS: AMITRIPTYLINE 50 MG TAB PO SCH (09:00)
[2018-07-14] MEDS: PREGABALIN 50 MG CAP PO SCH (09:00)
[2018-07-14] MEDS: FENOFIBRATE 145 MG TAB PO SCH (09:00)
[2018-07-14] MEDS: DOCUSATE SODIUM 250 MG CAP PO SCH ×2 (09:00→21:00)
[2018-07-14] MEDS: EZETIMIBE 10 MG TAB PO SCH (09:00)
[2018-07-14] MEDS: FLUTICASONE/VILANTEROL 100-25 INH SCH (09:00)
[2018-07-14] MEDS: DULOXETINE 30 MG CAP DR PO SCH (09:00)
[2018-07-14] MEDS ORDERED: TICAGRELOR 90 MG TABLET PO SCH (09:00)
--- NOTE | 2018-07-14 09:26 | PN ---
Date/Time of Note Date/Time of Note DATE: 07/14/18 TIME: 09:22 Assessment/Plan VTE Prophylaxis Risk score (from Nsg)>0 risk: 12 SCD applied (from Nsg): Yes SCD contraindicated: other (on.) Pharmacological prophylaxis: heparin Lines/Catheters IV Catheter Type (from Nrsg): A Line Central line still needed: Yes Urinary Cath still in place: No Reason Cath still needed: urinary retention Assessment/Plan Assessment/Plan Comatose intubated on ventilation. With cooling protocol. I was informed that [facility] called on x-ray but expressed willingness to accept the patient. It would be very high risk of the transfer and very high risk surgery. Call the family talk with the stated about poor prognosis but some hope. Her response was to do everything possible to save the life. Discussed with bander and cellophaner helper machine. Result Diagram: 07/14/18 0453 07/14/18 0453 Results 24hrs Laboratory Tests Test 07/13/18 11:44 07/13/18 13:18 07/13/18 17:08 07/13/18 18:38 Bedside Glucose 72 86 97 101 Test 07/13/18 19:42 07/13/18 20:45 07/13/18 23:46 07/14/18 00:21 White Blood 13.2 #H 16.3 #H Count Red Blood Count 3.28 L 3.18 L Hemoglobin 9.8 L 9.5 L Hematocrit 34.2 L 31.5 L Mean Corpuscular 104.3 H 99.1 Volume Mean Corpuscular 29.9 29.9 Hemoglobin Mean Corpuscular 28.7 L 30.2 L Hemoglobin Irma nt Red Cell 14.7 H 14.6 H Distribution Width Platelet Count 266 259 Mean Platelet 10.9 H 10.8 H Volume Immature 6.100 H 4.400 H Granulocytes % Neutrophils % 65.0 87.3 H Lymphocytes % 21.9 2.9 L Monocytes % 5.2 4.8 Eosinophils % 1.0 0.2 Basophils % 0.8 0.4 Nucleated Red 0.0 0.0 Blood Cells % Immature 0.800 H 0.720 H Granulocytes # Neutrophils # 8.6 H 14.3 H Lymphocytes # 2.9 0.5 L Monocytes # 0.7 0.8 Eosinophils # 0.1 0.0 Basophils # 0.1 0.1 Nucleated Red 0.0 0.0 Blood Cells # Sodium Level 139 135 Potassium Level 4.9 5.6 H Chloride Level 92 L 93 L Carbon Dioxide 27 22 Level Anion Gap 20 H 20 H Blood Urea 38 #H 49 #H Nitrogen Creatinine 4.20 #H 4.43 H Est Glomerular 15 L 14 L Filtrat Rate mL/min Glucose Level 168 240 H Lactic Acid 7.8 *H 1.4 Level Calcium Level 10.7 H 9.6 Phosphorus Level 10.0 H 8.0 #H Magnesium Level 3.5 H 2.8 H Total Bilirubin 0.2 Direct Bilirubin 0.00 Indirect 0.2 Bilirubin Aspartate Amino 294 H Transf (AST/SGOT ) Alanine 66 Aminotransferase (ALT/SGPT) Alkaline 113 Phosphatase Creatine Kinase 85 Creatine Kinase 7.4 Index Creatinine 6.25 H Kinase MB (Mass) Troponin I 0.111 3.910 *H Total Protein 6.9 Albumin 4.0 Globulin 2.90 Albumin/Globulin 1.37 Ratio Blood Gas Blood arterial Specimen Source Arterial Blood 07/13/2018 8:55: Date Drawn 48 PM Arterial Blood 7.413 pH (Temp corrected) Arterial Blood 44.3 pCO2 (Temp correct) Arterial Blood 86.7 pO2 (Temp corrected) Arterial Blood 27.6 H HCO3 Arterial Blood 2.7 Base Excess Arterial Blood 95.9 Oxygen Saturatio n Vin Test N/A Arterial Blood A-Line Gas Puncture Site Arterial 0.1 Blood Carboxyhem oglobin Arterial Blood 0.3 Methemoglobin Blood Gas A-a O2 292.4 H Differential Oxyhemoglobin 95.5 Percent Blood Gas 37.0 Temperature Blood Gas 18.0 Respiration Rate Blood Gas Actual 18 Respiration Rate Blood Gas VENT - AC Modality FiO2 60.0 Blood Gas Tidal 550.0 Volume Blood Gas Low 5.0 PEEP Setting Blood Gas [place] Notified Whom Blood Gas 07/13/2018 9:04: Notified Time 46 PM Bedside Glucose 235 H Prothrombin Time 31.6 #H Prothrombin Time 2.5 Ratio INR 3.05 International Normalized Ratio Activated > 180.0 *H Partial Thrombop last Time Fibrinogen 660.0 H Amylase Level 40 Lipase 55 Test 07/14/18 00:40 07/14/18 01:48 07/14/18 02:00 07/14/18 02:52 Bedside Glucose 200 243 H 206 Blood Gas Blood arterial Specimen Source Arterial Blood 07/14/2018 2:20: Date Drawn 29 AM Arterial Blood 7.361 pH (Temp corrected) Arterial Blood 41.2 pCO2 (Temp correct) Arterial Blood 106.7 H pO2 (Temp corrected) Arterial Blood 23.4 HCO3 Arterial Blood -2.6 Base Excess Arterial Blood 97.6 Oxygen Saturatio n Vin Test N/A Arterial Blood A-Line Gas Puncture Site Arterial 0.1 Blood Carboxyhem oglobin Arterial Blood 0 Methemoglobin Blood Gas A-a O2 206.3 H Differential Oxyhemoglobin 97.5 Percent Blood Gas 34.6 Temperature Blood Gas 18.0 Respiration Rate Blood Gas Actual 18 Respiration Rate Blood Gas VENT - AC Modality FiO2 50.0 Blood Gas Tidal 550.0 Volume Blood Gas Low 5.0 PEEP Setting Blood Gas [facility] Notified Whom Blood Gas 07/14/2018 2:27: Notified Time 03 AM Test 07/14/18 03:49 07/14/18 04:53 07/14/18 04:55 07/14/18 05:57 Bedside Glucose 178 213 155 White Blood 14.4 H Count Red Blood Count 3.23 L Hemoglobin 9.7 L Hematocrit 32.1 L Mean Corpuscular 99.4 Volume Mean Corpuscular 30.0 Hemoglobin Mean Corpuscular 30.2 L Hemoglobin Irma nt Red Cell 14.7 H Distribution Width Platelet Count 234 Mean Platelet 10.8 H Volume Immature 4.500 H Granulocytes % Neutrophils % 84.7 H Lymphocytes % 6.6 L Monocytes % 3.8 Eosinophils % 0.2 Basophils % 0.2 Nucleated Red 0.0 Blood Cells % Immature 0.650 H Granulocytes # Neutrophils # 12.2 H Lymphocytes # 0.9 Monocytes # 0.6 Eosinophils # 0.0 Basophils # 0.0 Nucleated Red 0.0 Blood Cells # Prothrombin Time 26.0 H Prothrombin Time 2.0 Ratio INR 2.37 International Normalized Ratio Activated 157.4 *H Partial Thrombop last Time Fibrinogen 678.0 H Sodium Level 138 Potassium Level 5.2 H Chloride Level 93 L Carbon Dioxide 30 Level Anion Gap 15 H Blood Urea 51 H Nitrogen Creatinine 4.92 H Est Glomerular 12 L Filtrat Rate mL/min Glucose Level 154 Lactic Acid 2.4 *H Level Calcium Level 9.7 Phosphorus Level 8.7 H Magnesium Level 2.9 H Troponin I 9.150 *H Amylase Level 42 Lipase 80 Test 07/14/18 06:50 4/26/19 08:00 07/14/18 08:16 07/14/18 09:09 Bedside Glucose 136 74 72 Blood Gas Blood arterial Specimen Source Arterial Blood 07/14/2018 8:04: Date Drawn 33 AM Arterial Blood 7.563 *H pH (Temp corrected) Arterial Blood 30.6 L pCO2 (Temp correct) Arterial Blood 103.5 H pO2 (Temp corrected) Arterial Blood 28.2 H HCO3 Arterial Blood 4.5 H Base Excess Arterial Blood 98.0 Oxygen Saturatio n Vin Test N/A Arterial Blood A-Line Gas Puncture Site Arterial 0.3 Blood Carboxyhem oglobin Arterial Blood 0.3 Methemoglobin Blood Gas A-a O2 224.3 H Differential Oxyhemoglobin 97.4 Percent Blood Gas 31.9 Temperature Blood Gas 18.0 Respiration Rate Blood Gas Actual 18 Respiration Rate Blood Gas VENT - AC Modality FiO2 50.0 Blood Gas Tidal 550.0 Volume Blood Gas Low 5.0 PEEP Setting Blood Gas G. TAGUBA RN Critical Value Read Back Blood Gas Richard Notified Whom Blood Gas 07/14/2018 8:15: Notified Time 47 AM Subjective 24 Hr Interval Summary Free Text/Dictation Received a call from the nurse yesterday at about 7:00 PM that patient was coded. performed in the emergency PTCA successfully with inability to stent the right coronary artery. At this time of dictation exact cause of his loss of consciousness is not fully clear. Having a history of seizure disorder, having hypoglycemic episodes, having severe pelvic arterial disease, COPD with a history of CO2 retention and refusal of her ABG, end-stage renal disease on hemodialysis with electrolyte disturbances with low ejection fraction on ICD among other factors are in the center of attention. Subjective hx not possible: pt critical, other (Not obtainable.) Exam/Review of Systems Exam Vitals Vital Signs Date Temp Pulse Resp B/P (MAP) Pulse Ox O2 O2 Flow FiO2 Time Delivery Rate 07/14/18 60 08:00 07/14/18 50 08:00 07/14/18 89.5 18 105/47 100 07:00 (66) 07/14/18 Mechanical 06:45 Ventilator 07/13/18 3.0 12:15 Intake and Output 07/13/18 07/13/18 07/14/18 1414:59 22:59 06:59 IntakeIntake Total 213.037 ml OutputOutput Total 2400 ml 200 ml BalanceBalance -2400 ml 13.037 ml Constitutional: well developed, frail, obese, other (Intubated on mechanical ventilation in ICU.); No alert, No oriented, No non-verbal, No distress Psych: No no complaints, No nl mood/affect, No anxiety, No confusion, No depre ssion, No suicidal, No other Head: normocephalic, atraumatic; No lacerations, No hematomas, No other Eyes: PERRL (Periorbital edema with pinpoint pupils.); No nl conjunctiva, No EOMI, No nl lids, No nl sclera, No icteric, No fundi, disc, No other ENMT: No nl external ears & nose, No nl lips & teeth, No nl nasal mucosa & septum, No mucosa pink and moist, No intubated, No tympanic membranes, No other Neck: jvd, bruits, thyromegaly, nuchal rigidity; No supple, No non-tender, No masses, No other Respiratory: congested cough, diminished breath sounds; No clear to auscultation, No normal air movement, No crackles/rales, No intercostal retraction, No labored breathing, No respirations, No tactile fremitus, No wheezing, No other Cardiovascular: regular rate and rhythm, bruits, edema, systolic murmur; No nl pulses, No diastolic murmur, No gallop, No irregular rhythm, No jugular venous distention (JVD), No murmurs/extra sounds, No rub, No S3, No S4, No other Gastrointestinal: soft, nl liver, spleen, ascites, bowel sounds, distended; No non-tender, No firm, No hepatomegaly, No mass, No rebound or guarding, No splenomegaly, No surgical scars, No tender, No other Genitourinary - Male: nl penis, nl scrotum, other (Raymundo catheter in place.); No CVA tenderness, No discharge Musculoskeletal: muscle tone, muscle weakness; No nl extremities to inspection, No nl gait and stance, No joint tenderness, No range of motion, No spine non-tender, No swelling, No other Extremities: No normal pulses, No calf tenderness, No cyanosis, No clubbing, No edema, No pitting pedal edema, No palpable cord, No tenderness, No other Neurological: NUTRITION ASSOCIATE II-XII intact; No nl mental status, No nl speech, No nl strength, No confused, No DTR's symmetric, No focal weakness, No lethargic, No numbness, No reflexes, No unresponsive, No other Skin: nl turgor, ecchymosis; No rash or lesions, No diaphoresis, No laceration, No puncture, No other Lymph: No nl lymph nodes, No enlarged, No nontender, No other Results Results 24hrs Laboratory Tests Test 07/13/18 11:44 07/13/18 13:18 07/13/18 17:08 07/13/18 18:38 Bedside Glucose 72 86 97 101 Test 07/13/18 19:42 07/13/18 20:45 07/13/18 23:46 07/14/18 00:21 White Blood 13.2 #H 16.3 #H Count Red Blood Count 3.28 L 3.18 L Hemoglobin 9.8 L 9.5 L Hematocrit 34.2 L 31.5 L Mean Corpuscular 104.3 H 99.1 Volume Mean Corpuscular 29.9 29.9 Hemoglobin Mean Corpuscular 28.7 L 30.2 L Hemoglobin Irma nt Red Cell 14.7 H 14.6 H Distribution Width Platelet Count 266 259 Mean Platelet 10.9 H 10.8 H Volume Immature 6.100 H 4.400 H Granulocytes % Neutrophils % 65.0 87.3 H Lymphocytes % 21.9 2.9 L Monocytes % 5.2 4.8 Eosinophils % 1.0 0.2 Basophils % 0.8 0.4 Nucleated Red 0.0 0.0 Blood Cells % Immature 0.800 H 0.720 H Granulocytes # Neutrophils # 8.6 H 14.3 H Lymphocytes # 2.9 0.5 L Monocytes # 0.7 0.8 Eosinophils # 0.1 0.0 Basophils # 0.1 0.1 Nucleated Red 0.0 0.0 Blood Cells # Sodium Level 139 135 Potassium Level 4.9 5.6 H Chloride Level 92 L 93 L Carbon Dioxide 27 22 Level Anion Gap 20 H 20 H Blood Urea 38 #H 49 #H Nitrogen Creatinine 4.20 #H 4.43 H Est Glomerular 15 L 14 L Filtrat Rate mL/min Glucose Level 168 240 H Lactic Acid 7.8 *H 1.4 Level Calcium Level 10.7 H 9.6 Phosphorus Level 10.0 H 8.0 #H Magnesium Level 3.5 H 2.8 H Total Bilirubin 0.2 Direct Bilirubin 0.00 Indirect 0.2 Bilirubin Aspartate Amino 294 H Transf (AST/SGOT ) Alanine 66 Aminotransferase (ALT/SGPT) Alkaline 113 Phosphatase Creatine Kinase 85 Creatine Kinase 7.4 Index Creatinine 6.25 H Kinase MB (Mass) Troponin I 0.111 3.910 *H Total Protein 6.9 Albumin 4.0 Globulin 2.90 Albumin/Globulin 1.37 Ratio Blood Gas Blood arterial Specimen Source Arterial Blood 07/13/2018 8:55: Date Drawn 48 PM Arterial Blood 7.413 pH (Temp corrected) Arterial Blood 44.3 pCO2 (Temp correct) Arterial Blood 86.7 pO2 (Temp corrected) Arterial Blood 27.6 H HCO3 Arterial Blood 2.7 Base Excess Arterial Blood 95.9 Oxygen Saturatio n Vin Test N/A Arterial Blood A-Line Gas Puncture Site Arterial 0.1 Blood Carboxyhem oglobin Arterial Blood 0.3 Methemoglobin Blood Gas A-a O2 292.4 H Differential Oxyhemoglobin 95.5 Percent Blood Gas 37.0 Temperature Blood Gas 18.0 Respiration Rate Blood Gas Actual 18 Respiration Rate Blood Gas VENT - AC Modality FiO2 60.0 Blood Gas Tidal 550.0 Volume Blood Gas Low 5.0 PEEP Setting Blood Gas [place] Notified Whom Blood Gas 07/13/2018 9:04: Notified Time 46 PM Bedside Glucose 235 H Prothrombin Time 31.6 #H Prothrombin Time 2.5 Ratio INR 3.05 International Normalized Ratio Activated > 180.0 *H Partial Thrombop last Time Fibrinogen 660.0 H Amylase Level 40 Lipase 55 Test 07/14/18 00:40 07/14/18 01:48 07/14/18 02:00 07/14/18 02:52 Bedside Glucose 200 243 H 206 Blood Gas Blood arterial Specimen Source Arterial Blood 07/14/2018 2:20: Date Drawn 29 AM Arterial Blood 7.361 pH (Temp corrected) Arterial Blood 41.2 pCO2 (Temp correct) Arterial Blood 106.7 H pO2 (Temp corrected) Arterial Blood 23.4 HCO3 Arterial Blood -2.6 Base Excess Arterial Blood 97.6 Oxygen Saturatio n Vin Test N/A Arterial Blood A-Line Gas Puncture Site Arterial 0.1 Blood Carboxyhem oglobin Arterial Blood 0 Methemoglobin Blood Gas A-a O2 206.3 H Differential Oxyhemoglobin 97.5 Percent Blood Gas 34.6 Temperature Blood Gas 18.0 Respiration Rate Blood Gas Actual 18 Respiration Rate Blood Gas VENT - AC Modality FiO2 50.0 Blood Gas Tidal 550.0 Volume Blood Gas Low 5.0 PEEP Setting Blood Gas [facility] Notified Whom Blood Gas 07/14/2018 2:27: Notified Time 03 AM Test 07/14/18 03:49 07/14/18 04:53 07/14/18 04:55 07/14/18 05:57 Bedside Glucose 178 213 155 White Blood 14.4 H Count Red Blood Count 3.23 L Hemoglobin 9.7 L Hematocrit 32.1 L Mean Corpuscular 99.4 Volume Mean Corpuscular 30.0 Hemoglobin Mean Corpuscular 30.2 L Hemoglobin Irma nt Red Cell 14.7 H Distribution Width Platelet Count 234 Mean Platelet 10.8 H Volume Immature 4.500 H Granulocytes % Neutrophils % 84.7 H Lymphocytes % 6.6 L Monocytes % 3.8 Eosinophils % 0.2 Basophils % 0.2 Nucleated Red 0.0 Blood Cells % Immature 0.650 H Granulocytes # Neutrophils # 12.2 H Lymphocytes # 0.9 Monocytes # 0.6 Eosinophils # 0.0 Basophils # 0.0 Nucleated Red 0.0 Blood Cells # Prothrombin Time 26.0 H Prothrombin Time 2.0 Ratio INR 2.37 International Normalized Ratio Activated 157.4 *H Partial Thrombop last Time Fibrinogen 678.0 H Sodium Level 138 Potassium Level 5.2 H Chloride Level 93 L Carbon Dioxide 30 Level Anion Gap 15 H Blood Urea 51 H Nitrogen Creatinine 4.92 H Est Glomerular 12 L Filtrat Rate mL/min Glucose Level 154 Lactic Acid 2.4 *H Level Calcium Level 9.7 Phosphorus Level 8.7 H Magnesium Level 2.9 H Troponin I 9.150 *H Amylase Level 42 Lipase 80 Test 07/14/18 06:50 07/14/18 08:00 07/14/18 08:16 07/14/18 09:09 Bedside Glucose 136 74 72 Blood Gas Blood arterial Specimen Source Arterial Blood 07/14/2018 8:04: Date Drawn 33 AM Arterial Blood 7.563 *H pH (Temp corrected) Arterial Blood 30.6 L pCO2 (Temp correct) Arterial Blood 103.5 H pO2 (Temp corrected) Arterial Blood 28.2 H HCO3 Arterial Blood 4.5 H Base Excess Arterial Blood 98.0 Oxygen Saturatio n Vin Test N/A Arterial Blood A-Line Gas Puncture Site Arterial 0.3 Blood Carboxyhem oglobin Arterial Blood 0.3 Methemoglobin Blood Gas A-a O2 224.3 H Differential Oxyhemoglobin 97.4 Percent Blood Gas 31.9 Temperature Blood Gas 18.0 Respiration Rate Blood Gas Actual 18 Respiration Rate Blood Gas VENT - AC Modality FiO2 50.0 Blood Gas Tidal 550.0 Volume Blood Gas Low 5.0 PEEP Setting Blood Gas Anjelica PALACIOS RN Critical Value Read Back Blood Gas M.DSherry Notified Whom Blood Gas 07/14/2018 8:15: Notified Time 47 AM Medications Medication Current Medications Amitriptyline HCl (Elavil) 50 mg DAILY PO Last administered on 07/13/18 08:52; Admin Dose 50 MG; Start 07/05/18 at 09:00 Atorvastatin Calcium (Lipitor) 80 mg QHS PO Last administered on 07/12/18 20:49; Admin Dose 80 MG; Start 07/05/18 at 21:00 Cyclobenzaprine HCl (Flexeril) 10 mg Q6H PO Last administered on 07/13/18 17:30; Admin Dose 10 MG; Start 07/05/18 at 00:30 Docusate Sodium (Colace) 250 mg BID PO Last administered on 07/13/18 08:44; Admin Dose 250 MG; Start 07/05/18 at 09:00 Duloxetine HCl (Cymbalta) 60 mg DAILY PO Last administered on 07/13/18 08:35; Admin Dose 60 MG; Start 07/05/18 at 09:00 Econazole Nitrate (Spectazole 1% Cr) 15 applic DAILY TOP Last administered on 07/13/18 08:47; Admin Dose 15 APPLIC; Start 07/05/18 at 09:00 EZETIMIBE (Zetia) 10 mg DAILY PO Last administered on 07/13/18 08:44; Admin Dose 10 MG; Start 07/05/18 at 09:00 Fluocinonide (Lidex 0.05% Cr) 1 applic DAILY TOP Last administered on 07/13/18 09:00; Admin Dose 1 APPLIC; Start 07/05/18 at 09:00 Sevelamer Carbonate (Renvela) 1.6 gm WITH MEALS PO Last administered on 07/13/18 17:30; Admin Dose 1.6 GM; Start 07/05/18 at 07:55 Fenofibrate (Tricor) 145 mg DAILY PO Last administered on 07/13/18 08:44; Admin Dose 145 MG; Start 07/05/18 at 09:00 Tamsulosin HCl (Flomax) 0.4 mg HS PO Last administered on 07/12/18 20:49; Admin Dose 0.4 MG; Start 07/05/18 at 21:00 Zolpidem Tartrate (Ambien) 10 mg HS PRN PO INSOMNIA Last administered on 07/12/18 02:47; Admin Dose 10 MG; Start 07/05/18 at 01:00 Pregabalin (Lyrica) 50 mg BID PO Last administered on 07/13/18 08:53; Admin Dose 50 MG; Start 07/05/18 at 09:00 Lactulose (Enulose) 10 gm DAILY PRN PO CONSTIPATION; Start 07/05/18 at 01:00 Ondansetron HCl (Zofran Tab) 8 mg Q6H PRN PO NAUSEA AND/OR VOMITING; Start 07/05/18 at 01:00 Albuterol/ Ipratropium (Duoneb) 3 ml Q8H RESP THERAPY PRN HHN SHORTNESS OF ISABEL ATH; Start 07/05/18 at 01:00 Acetaminophen (Tylenol Tab) 500 mg Q6H PRN PO MILD PAIN(1-3)OR ELEVATED TEMP Last administered on 07/11/18 08:49; Admin Dose 500 MG; Start 07/05/18 at 01:00 Morphine Sulfate (morphine) 2 mg Q3 PRN IV SEVERE PAIN LEVEL 7-10 Last administered on 07/13/18 08:59; Admin Dose 2 MG; Start 07/05/18 at 01:00 Fluticasone/ Vilanterol (Breo Ellipta 100-25 Mcg Inh) 1 inh DAILY INH Last administered on 07/13/18 08:47; Admin Dose 1 INH; Start 07/05/18 at 09:00 Fish Oil (Fish Oil) 1,000 mg BID PO Last administered on 07/13/18 08:44; Admin Dose 1,000 MG; Start 07/05/18 at 09:00 Promethazine HCl/ Dextromethorphan (Phenergan-Dm) 5 ml Q4H PRN PO COUGH; Start 07/09/18 at 15:00 Heparin Sodium (Porcine) (Heparin (1000 Units/ml)) 4,000 unit AFTER DIALYSIS CATHETER ; Start 07/08/18 at 16:30 Albumin Human 50 ml @ 100 mls/hr WITH DIALYSIS PRN IV SBP < 90 DURING DIALYSIS Last administered on 07/09/18at 14:07; Admin Dose 100 MLS/HR; Start 07/08/18 at 16:30 Amiodarone HCl 900 mg/Dextrose 500 ml @ 0 mls/hr Q0M IV Last administered on 07/14/18at 01:18; Admin Dose 16.6 MLS/HR; Start 07/13/18 at 19:30 Propofol 100 ml @ 2.919 mls/ hr Q12H PRN IV AGITATION Last administered on 07/14/18at 05:32; Admin Dose 14.57 MLS/HR; Start 07/13/18 at 23:00 Vecuronium Christiana 100 mg/ Dextrose 100 ml @ 4.87 mls/hr TITRATE IV ; Start 07/13/18 at 23:00 Fentanyl 100 ml @ 2.5 mls/hr TITRATE PRN IV PAIN Last administered on 07/14/18at 00:04; Admin Dose 5 MLS/HR; Start 07/13/18 at 23:30 Diagnostic Test (Pha) (Accu-Chek) 1 ea Q1H XX Last administered on 07/14/18at 06:52; Admin Dose 1 EA; Start 07/14/18 at 00:00 Insulin Human Regular 100 unit/ Sodium Chloride 100 ml @ 0 mls/hr PER PROTOCOL IV Last administered on 07/14/18at 00:49; Admin Dose 2 MLS/HR; Start 07/14/18 at 00:00 Miscellaneous Information (* Miscellaneous Pharmacy Order) Treatment of Hypoglycemia: 1.BG 51... Per protocol XX ; Start 07/14/18 at 00:00 Dextrose (D50w Syringe) 25 ml Q15M PRN IV .DECREASED GLUCOSE; Start 07/14/18 at 00:00 Dextrose (D50w Syringe) 50 ml Q15M PRN IV .DECREASED GLUCOSE; Start 07/14/18 at 00:00 Eye Lubricant (Artificial Tears Oph) 2 drop QID BOTH EYES Last administered on 07/14/18at 05:35; Admin Dose 2 DROP; Start 07/14/18 at 06:00 Eye Lubricant (Akwa Oint) 1 applic Q6H BOTH EYES Last administered on 07/14/18at 05:35; Admin Dose 1 APPLIC; Start 07/14/18 at 06:00 Acetaminophen (Tylenol Supp) 650 mg Q4H PRN SC TEMP > 37C; Start 07/14/18 at 03:00 Acetaminophen (Tylenol Liquid) 650 mg Q4H PRN NGT TEMP > 37C; Start 07/14/18 at 03:00 Acetaminophen (Tylenol Supp) 500 mg Q6H SC ; Start 07/15/18 at 03:00 Acetaminophen (Tylenol Liquid) 500 mg Q6H NGT ; Start 07/15/18 at 03:00 Meperidine HCl (Demerol) 12.5 mg Q4H PRN IV POST OPERATIVE SHIVERING; Start 07/14/18 at 03:00 Meperidine HCl (Demerol) 25 mg Q4H PRN IV POST OPERATIVE SHIVERING; Start 07/14/18 at 03:00 Norepinephrine 250 ml @ 1.875 mls/ hr TITRATE PRN IV BLOOD PRESSURE SUPPORT Last administered on 07/14/18at 06:19; Admin Dose 9.375 MLS/HR; Start 07/14/18 at 06:30 Aspirin (Aspirin) 81 mg DAILY NGT ; Start 07/14/18 at 09:00 Ticagrelor (Brilinta) 90 mg BID NGT ; Start 07/14/18 at 09:00 Famotidine (Pepcid Iv) 20 mg DAILY IV ; Start 07/14/18 at 09:00 LAURA AHN MD Jul 14, 2018 09:26
--- NOTE | 2018-07-14 09:32 | CONS ---
Assessment/Plan Assessment/Plan Assessment/Plan (Daily) Chest x-ray showing mild CHF pattern. Ventilator setting; AC of 18, tidal volume 550, PEEP of 5, 50% FiO2. Patient is currently on propofol 25 mics per kilo gram per minute, Levophed 2 mics per minute, fentanyl drip 50 mics per hour, insulin drip 1 unit/h. Assessment and recommendations; 1. patient status post cardiac arrest with CPR lasting about 20 minutes with revival of vital signs, currently on hypothermia protocol. 2. Status post acute coronary intervention. 3. Chronic renal failure, on hemodialysis. 4. Likely underlying cardiomyopathy. 5. History of depression, muscle spasms. 6. Anemia. 7. History of depression 8. History of BPH. 9. At this time difficult to assess for any anoxic brain injury. Continue current supportive care. Decrease tidal volume to 500 mL. Wean down FiO2 as well. Mental status to be assessed once patient is off hypothermia protocol. Obtain follow-up chest x-ray in 24 hours. Hemodialysis per assessment nurse practitioner. Prognosis is guarded. 40 minutes of critical care time was spent evaluating the patient. Consultation Date/Type/Reason Admit Date/Time Jul 04, 2018 at 20:45 Date of Consultation: Jul 14, 2018 Type of Consult Pulmonary/critical care Patient is a 63-year-old gentleman who was admitted to the hospital about 10 days ago with some shortness of breath. The patient was doing fairly well until yesterday evening when he had sudden cardiac arrest event, patient was taken to [facility] immediately and underwent coronary angiography after undergoing CPR prior to that. Obtuse marginal as well as distal LAD were stented. Patient could not be immediately extubated and was transferred to ICU intubated. Patient is currently on hypothermia protocol. Past medical history; 1. History of diabetes. 2. Severe peripheral arterial disease. 3. Hypertension. 4. Obesity. 5. Hyperlipidemia. 6. History of muscle spasms. 7. History of depression. 8. BPH. 9. Apparent chronic anemia. 10. Chronic renal failure, on hemodialysis. Allergies are none. Social history; apparently he does have a remote history of smoking. Family history, occupational history is not available. Review of systems; unable to be obtained. General exam; elderly male, morbidly obese, orally intubated, sedated, on hypothermia protocol. Date/Time of Note DATE: 07/14/18 TIME: 09:28 Past Medical History Medical History: angina, colitis, congestive heart failure, coronary artery disease, diabetes, GERD, GI bleed, high cholesterol, hypertension, pancreatitis, renal disease, urinary tract infection Home Meds Reported Medications Econazole Nitrate (Econazole Nitrate) 15 Gm Cream..g., 15 GM TP 06/12/18 Ezetimibe* (Zetia*) 10 Mg Tablet, 10 MG PO, TAB 06/12/18 Ondansetron Hcl* (Ondansetron Hcl*) 8 Mg Tablet, 8 MG PO, TAB 06/12/18 Fluocinonide* (Fluocinonide* Cream) 0.1% - 120 Gm Cream..g., 1 APPLIC TOP, TUB 06/12/[address]* (Atrovent HFA*) 12.9 Gm Aer.w.adap, 2 PUFF INHALATION for SHORTNESS OF BREATH, #1 INHALER 06/12/18 Metolazone* (Metolazone*) 10 Mg Tablet, 10 MG PO, TAB 06/12/18 Promethazine/Phenyleph/Codeine (Irebfthgktye-YG-Ivawbgm Syrup) 118 Ml Syrup, 118 ML PO 06/12/18 Amitriptyline Hcl* (Amitriptyline Hcl*) 50 Mg Tablet, 50 MG PO, #30 TAB 06/12/18 Duloxetine Hcl* (Duloxetine Hcl*) 60 Mg Capsule.dr, 60 MG PO, #30 CAP 06/12/18 Icosapent Ethyl (VASCEPA) 1 Gm Capsule, 1 GM PO, CAP 06/12/18 Benazepril Hcl* (Benazepril Hcl*) 10 Mg Tablet, 10 MG PO, #60 TAB 06/12/18 Budesonide-Formoterol Fumarate* (Symbicort*) 80-4.5 Mcg Hfa.aer.ad, 2 PUFF INHALATION, BOTTLE 06/12/18 Lactulose* (Lactulose*) 10 Gm/15 Ml Solution, 10 GM PO, ML 06/12/18 Furosemide* (Furosemide*) 80 Mg Tablet, 80 MG PO BID, #60 TAB 04/19/18 Sevelamer Carbonate* (Renvela*) 800 Mg Tablet, 1.6 GM PO WITH MEALS, TAB 03/05/18 Metoprolol Succinate* (Toprol XL*) 50 Mg Tab.er.24h, 50 MG PO DAILY, #30 TAB 03/05/18 Insulin Degludec (Tresiba Flextouch U-100) 100 Unit/1 Ml Insuln.pen, 40 UNIT SQ QHS 03/05/18 Insulin Aspart* (Novolog Insulin Pen*) 100 Unit/Ml Soln, 12 UNIT SC WITH MEALS, EA 03/05/18 Esomeprazole Mag Trihydrate (Nexium) 40 Mg Capsule.dr, 40 MG PO DAILY, #30 CAP 03/05/18 Docusate Sodium* (Colace*) 250 Mg Capsule, 250 MG PO BID, #60 CAP 03/05/18 Cyclobenzaprine Hcl* (Cyclobenzaprine Hcl*) 10 Mg Tablet, 10 MG PO Q6H, #60 TAB 03/05/18 Clopidogrel Bisulfate (Clopidogrel) 75 Mg Tablet, 75 MG PO DAILY, #30 TAB 03/05/18 Atorvastatin* (Atorvastatin*) 80 Mg Tablet, 80 MG PO QHS, #30 TAB 03/05/18 Aspirin* (Aspirin* EC) 81 Mg Tablet.dr, 81 MG PO DAILY, TAB 03/05/18 Apixaban* (Eliquis*) 2.5 Mg Tablet, 2.5 MG PO BID, TAB 03/05/18 Medications Current Medications Amitriptyline HCl (Elavil) 50 mg DAILY PO Last administered on 07/13/18 08:52; Admin Dose 50 MG; Start 07/05/18 at 09:00 Atorvastatin Calcium (Lipitor) 80 mg QHS PO Last administered on 07/12/18at 20:49; Admin Dose 80 MG; Start 07/05/18 at 21:00 Cyclobenzaprine HCl (Flexeril) 10 mg Q6H PO Last administered on 07/13/18 17:30; Admin Dose 10 MG; Start 07/05/18 at 00:30 Docusate Sodium (Colace) 250 mg BID PO Last administered on 07/13/18 08:44; Admin Dose 250 MG; Start 07/05/18 at 09:00 Duloxetine HCl (Cymbalta) 60 mg DAILY PO Last administered on 07/13/18 08:35; Admin Dose 60 MG; Start 07/05/18 at 09:00 Econazole Nitrate (Spectazole 1% Cr) 15 applic DAILY TOP Last administered on 07/13/18 08:47; Admin Dose 15 APPLIC; Start 07/05/18 at 09:00 EZETIMIBE (Zetia) 10 mg DAILY PO Last administered on 07/13/18 08:44; Admin Dose 10 MG; Start 07/05/18 at 09:00 Fluocinonide (Lidex 0.05% Cr) 1 applic DAILY TOP Last administered on 07/13/18 09:00; Admin Dose 1 APPLIC; Start 07/05/18 at 09:00 Sevelamer Carbonate (Renvela) 1.6 gm WITH MEALS PO Last administered on 07/13/18 17:30; Admin Dose 1.6 GM; Start 07/05/18 at 07:55 Fenofibrate (Tricor) 145 mg DAILY PO Last administered on 07/13/18 08:44; Admin Dose 145 MG; Start 07/05/18 at 09:00 Tamsulosin HCl (Flomax) 0.4 mg HS PO Last administered on 07/12/18 20:49; Admin Dose 0.4 MG; Start 07/05/18 at 21:00 Zolpidem Tartrate (Ambien) 10 mg HS PRN PO INSOMNIA Last administered on 07/12/18 02:47; Admin Dose 10 MG; Start 07/05/18 at 01:00 Pregabalin (Lyrica) 50 mg BID PO Last administered on 07/13/18 08:53; Admin D ose 50 MG; Start 07/05/18 at 09:00 Lactulose (Enulose) 10 gm DAILY PRN PO CONSTIPATION; Start 07/05/18 at 01:00 Ondansetron HCl (Zofran Tab) 8 mg Q6H PRN PO NAUSEA AND/OR VOMITING; Start 07/05/18 at 01:00 Albuterol/ Ipratropium (Duoneb) 3 ml Q8H RESP THERAPY PRN HHN SHORTNESS OF BREATH; Start 07/05/18 at 01:00 Acetaminophen (Tylenol Tab) 500 mg Q6H PRN PO MILD PAIN(1-3)OR ELEVATED TEMP Last administered on 07/11/18 08:49; Admin Dose 500 MG; Start 07/05/18 at 01:00 Morphine Sulfate (morphine) 2 mg Q3 PRN IV SEVERE PAIN LEVEL 7-10 Last administered on 07/13/18 08:59; Admin Dose 2 MG; Start 07/05/18 at 01:00 Fluticasone/ Vilanterol (Breo Ellipta 100-25 Mcg Inh) 1 inh DAILY INH Last admi nistered on 07/13/18 08:47; Admin Dose 1 INH; Start 07/05/18 at 09:00 Fish Oil (Fish Oil) 1,000 mg BID PO Last administered on 07/13/18 08:44; Admin Dose 1,000 MG; Start 07/05/18 at 09:00 Promethazine HCl/ Dextromethorphan (Phenergan-Dm) 5 ml Q4H PRN PO COUGH; Start 07/09/18 at 15:00 Heparin Sodium (Porcine) (Heparin (1000 Units/ml)) 4,000 unit AFTER DIALYSIS CATHETER ; Start 07/08/18 at 16:30 Albumin Human 50 ml @ 100 mls/hr WITH DIALYSIS PRN IV SBP < 90 DURING DIALYSIS Last administered on 07/09/18 14:07; Admin Dose 100 MLS/HR; Start 07/08/18 at 16:30 Amiodarone HCl 900 mg/Dextrose 500 ml @ 0 mls/hr Q0M IV Last administered on 07/14/18 01:18; Admin Dose 16.6 MLS/HR; Start 07/13/18 at 19:30 Propofol 100 ml @ 2.919 mls/ hr Q12H PRN IV AGITATION Last administered on 07/14/18 05:32; Admin Dose 14.57 MLS/HR; Start 07/13/18 at 23:[address] 100 mg/ Dextrose 100 ml @ 4.87 mls/hr TITRATE IV ; Start 07/13/18 at 23:00 Fentanyl 100 ml @ 2.5 mls/hr TITRATE PRN IV PAIN Last administered on 07/14/18 00:04; Admin Dose 5 MLS/HR; Start 07/13/18 at 23:30 Diagnostic Test (Pha) (Accu-Chek) 1 ea Q1H XX Last administered on 07/14/18 06:52; Admin Dose 1 EA; Start 07/14/18 at 00:00 Insulin Human Regular 100 unit/ Sodium Chloride 100 ml @ 0 mls/hr PER PROTOCOL IV Last administered on 07/14/18 00:49; Admin Dose 2 MLS/HR; Start 07/14/18 at 00:00 Miscellaneous Information (* Miscellaneous Pharmacy Order) Treatment of Hypoglycemia: 1.BG 51... Per protocol XX ; Start 07/14/18 at 00:00 Dextrose (D50w Syringe) 25 ml Q15M PRN IV .DECREASED GLUCOSE; Start 07/14/18 at 00:00 Dextrose (D50w Syringe) 50 ml Q15M PRN IV .DECREASED GLUCOSE; Start 07/14/18 at 00:00 Eye Lubricant (Artificial Tears Oph) 2 drop QID BOTH EYES Last administered on 07/14/18at 05:35; Admin Dose 2 DROP; Start 07/14/18 at 06:00 Eye Lubricant (Akwa Oint) 1 applic Q6H BOTH EYES Last administered on 07/14/18at 05:35; Admin Dose 1 APPLIC; Start 07/14/18 at 06:00 Acetaminophen (Tylenol Supp) 650 mg Q4H PRN [place] TEMP > 37C; Start 07/14/18 at 03:00 Acetaminophen (Tylenol Liquid) 650 mg Q4H PRN NGT TEMP > 37C; Start 07/14/18 at 03:00 Acetaminophen (Tylenol Supp) 500 mg Q6H [place] ; Start 07/15/18 at 03:00 Acetaminophen (Tylenol Liquid) 500 mg Q6H NGT ; Start 07/15/18 at 03:00 Meperidine HCl (Demerol) 12.5 mg Q4H PRN IV POST OPERATIVE SHIVERING; Start 07/14/18 at 03:00 Meperidine HCl (Demerol) 25 mg Q4H PRN IV POST OPERATIVE SHIVERING; Start 07/14/18 at 03:00 Norepinephrine 250 ml @ 1.875 mls/ hr TITRATE PRN IV BLOOD PRESSURE SUPPORT Last administered on 07/14/18at 06:19; Admin Dose 9.375 MLS/HR; Start 07/14/18 at 06:30 Aspirin (Aspirin) 81 mg DAILY NGT ; Start 07/14/18 at 09:00 Ticagrelor (Brilinta) 90 mg BID NGT ; Start 07/14/18 at 09:00 Famotidine (Pepcid Iv) 20 mg DAILY IV ; Start 07/14/18 at 09:00 Allergies: Coded Allergies: No Known Allergies (Unverified Allergy, Mild, 07/04/18) Past Surgical History Past Surgical Hx: noncontributory, coronary bypass surgery, endoscopy, other Social History Alcohol Use: none Smoking Status: Former smoker Drug Use: none, other (High probability of being addicted to the opioids.) Exam/Review of Systems Exam Vitals Vital Signs Date Temp Pulse Resp B/P (MAP) Pulse Ox O2 O2 Flow FiO2 Time Delivery Rate 07/14/18 60 08:00 07/14/18 50 08:00 07/14/18 89.5 18 105/47 100 07:00 (66) 07/14/18 Mechanical 06:45 Ventilator 07/13/18 3.0 12:15 Intake and Output 07/13/18 07/13/18 07/14/18 1515:00 23:00 07:00 IntakeIntake Total 261.232 ml OutputOutput Total 2400 ml 200 ml BalanceBalance -2400 ml 61.232 ml Exam H EENT exam; supple neck, positive JVD. No lymphadenopathy. Midline trachea. No thyromegaly. Orally intubated. Patient is edentulous. No neck masses. Pupils are small bilaterally. Chest exam; diminished breath sounds bilaterally. S1-S2 audible, no murmurs. Regular rhythm. Abdomen exam; protuberant. No organomegaly. Bowel sounds are absent. Extremity exam; no edema. 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 Results Result Diagram: 07/14/18 0453 07/14/18 0453 Results 24hrs Laboratory Tests Test 07/13/18 11:44 07/13/18 13:18 07/13/18 17:08 07/13/18 18:38 Bedside Glucose 72 86 97 101 Test 07/13/18 19:42 07/13/18 20:45 07/13/18 23:46 07/14/18 00:21 White Blood 13.2 #H 16.3 #H Count Red Blood Count 3.28 L 3.18 L Hemoglobin 9.8 L 9.5 L Hematocrit 34.2 L 31.5 L Mean Corpuscular 104.3 H 99.1 Volume Mean Corpuscular 29.9 29.9 Hemoglobin Mean Corpuscular 28.7 L 30.2 L Hemoglobin Irma nt Red Cell 14.7 H 14.6 H Distribution Width Platelet Count 266 259 Mean Platelet 10.9 H 10.8 H Volume Immature 6.100 H 4.400 H Granulocytes % Neutrophils % 65.0 87.3 H Lymphocytes % 21.9 2.9 L Monocytes % 5.2 4.8 Eosinophils % 1.0 0.2 Basophils % 0.8 0.4 Nucleated Red 0.0 0.0 Blood Cells % Immature 0.800 H 0.720 H Granulocytes # Neutrophils # 8.6 H 14.3 H Lymphocytes # 2.9 0.5 L Monocytes # 0.7 0.8 Eosinophils # 0.1 0.0 Basophils # 0.1 0.1 Nucleated Red 0.0 0.0 Blood Cells # Sodium Level 139 135 Potassium Level 4.9 5.6 H Chloride Level 92 L 93 L Carbon Dioxide 27 22 Level Anion Gap 20 H 20 H Blood Urea 38 #H 49 #H Nitrogen Creatinine 4.20 #H 4.43 H Est Glomerular 15 L 14 L Filtrat Rate mL/min Glucose Level 168 240 H Lactic Acid 7.8 *H 1.4 Level Calcium Level 10.7 H 9.6 Phosphorus Level 10.0 H 8.0 #H Magnesium Level 3.5 H 2.8 H Total Bilirubin 0.2 Direct Bilirubin 0.00 Indirect 0.2 Bilirubin Aspartate Amino 294 H Transf (AST/SGOT ) Alanine 66 Aminotransferase (ALT/SGPT) Alkaline 113 Phosphatase Creatine Kinase 85 Creatine Kinase 7.4 Index Creatinine 6.25 H Kinase MB (Mass) Troponin I 0.111 3.910 *H Total Protein 6.9 Albumin 4.0 Globulin 2.90 Albumin/Globulin 1.37 Ratio Blood Gas Blood arterial Specimen Source Arterial Blood 07/13/2018 8:55: Date Drawn 48 PM Arterial Blood 7.413 pH (Temp corrected) Arterial Blood 44.3 pCO2 (Temp correct) Arterial Blood 86.7 pO2 (Temp corrected) Arterial Blood 27.6 H HCO3 Arterial Blood 2.7 Base Excess Arterial Blood 95.9 Oxygen Saturatio n Vin Test N/A Arterial Blood A-Line Gas Puncture Site Arterial 0.1 Blood Carboxyhem oglobin Arterial Blood 0.3 Methemoglobin Blood Gas A-a O2 292.4 H Differential Oxyhemoglobin 95.5 Percent Blood Gas 37.0 Temperature Blood Gas 18.0 Respiration Rate Blood Gas Actual 18 Respiration Rate Blood Gas VENT - AC Modality FiO2 60.0 Blood Gas Tidal 550.0 Volume Blood Gas Low 5.0 PEEP Setting Blood Gas MA Notified Whom Blood Gas 07/13/2018 9:04: Notified Time 46 PM Bedside Glucose 235 H Prothrombin Time 31.6 #H Prothrombin Time 2.5 Ratio INR 3.05 International Normalized Ratio Activated > 180.0 *H Partial Thrombop last Time Fibrinogen 660.0 H Amylase Level 40 Lipase 55 Test 07/14/18 00:40 07/14/18 01:48 07/14/18 02:00 07/14/18 02:52 Bedside Glucose 200 243 H 206 Blood Gas Blood arterial Specimen Source Arterial Blood 07/14/2018 2:20: Date Drawn 29 AM Arterial Blood 7.361 pH (Temp corrected) Arterial Blood 41.2 pCO2 (Temp correct) Arterial Blood 106.7 H pO2 (Temp corrected) Arterial Blood 23.4 HCO3 Arterial Blood -2.6 Base Excess Arterial Blood 97.6 Oxygen Saturatio n Vin Test N/A Arterial Blood A-Line Gas Puncture Site Arterial 0.1 Blood Carboxyhem oglobin Arterial Blood 0 Methemoglobin Blood Gas A-a O2 206.3 H Differential Oxyhemoglobin 97.5 Percent Blood Gas 34.6 Temperature Blood Gas 18.0 Respiration Rate Blood Gas Actual 18 Respiration Rate Blood Gas VENT - AC Modality FiO2 50.0 Blood Gas Tidal 550.0 Volume Blood Gas Low 5.0 PEEP Setting Blood Gas Fabricio TRUJILLO [employer]PERATOR Notified Whom Blood Gas 07/14/2018 2:27: Notified Time 03 AM Test 07/14/18 03:49 07/14/18 04:53 07/14/18 04:55 07/14/18 05:57 Bedside Glucose 178 213 155 White Blood 14.4 H Count Red Blood Count 3.23 L Hemoglobin 9.7 L Hematocrit 32.1 L Mean Corpuscular 99.4 Volume Mean Corpuscular 30.0 Hemoglobin Mean Corpuscular 30.2 L Hemoglobin Irma nt Red Cell 14.7 H Distribution Width Platelet Count 234 Mean Platelet 10.8 H Volume Immature 4.500 H Granulocytes % Neutrophils % 84.7 H Lymphocytes % 6.6 L Monocytes % 3.8 Eosinophils % 0.2 Basophils % 0.2 Nucleated Red 0.0 Blood Cells % Immature 0.650 H Granulocytes # Neutrophils # 12.2 H Lymphocytes # 0.9 Monocytes # 0.6 Eosinophils # 0.0 Basophils # 0.0 Nucleated Red 0.0 Blood Cells # Prothrombin Time 26.0 H Prothrombin Time 2.0 Ratio INR 2.37 International Normalized Ratio Activated 157.4 *H Partial Thrombop last Time Fibrinogen 678.0 H Sodium Level 138 Potassium Level 5.2 H Chloride Level 93 L Carbon Dioxide 30 Level Anion Gap 15 H Blood Urea 51 H Nitrogen Creatinine 4.92 H Est Glomerular 12 L Filtrat Rate mL/min Glucose Level 154 Lactic Acid 2.4 *H Level Calcium Level 9.7 Phosphorus Level 8.7 H Magnesium Level 2.9 H Troponin I 9.150 *H Amylase Level 42 Lipase 80 Test 07/14/18 06:50 07/14/18 08:00 07/14/18 08:16 07/14/18 09:09 Bedside Glucose 136 74 72 Blood Gas Blood arterial Specimen Source Arterial Blood 07/14/2018 8:04: Date Drawn 33 AM Arterial Blood 7.563 *H pH (Temp corrected) Arterial Blood 30.6 L pCO2 (Temp correct) Arterial Blood 103.5 H pO2 (Temp corrected) Arterial Blood 28.2 H HCO3 Arterial Blood 4.5 H Base Excess Arterial Blood 98.0 Oxygen Saturatio n Vin Test N/A Arterial Blood A-Line Gas Puncture Site Arterial 0.3 Blood Carboxyhem oglobin Arterial Blood 0.3 Methemoglobin Blood Gas A-a O2 224.3 H Differential Oxyhemoglobin 97.4 Percent Blood Gas 31.9 Temperature Blood Gas 18.0 Respiration Rate Blood Gas Actual 18 Respiration Rate Blood Gas VENT - AC Modality FiO2 50.0 Blood Gas Tidal 550.0 Volume Blood Gas Low 5.0 PEEP Setting Blood Gas G. TAGUBA RN Critical Value Read Back Blood Gas Richard Notified Whom Blood Gas 07/14/2018 8:15: Notified Time 47 AM Medications Medication Current Medications Amitriptyline HCl (Elavil) 50 mg DAILY PO Last administered on 07/13/18at 08:52; Admin Dose 50 MG; Start 07/05/18 at 09:00 Atorvastatin Calcium (Lipitor) 80 mg QHS PO Last administered on 07/12/18at 20:49; Admin Dose 80 MG; Start 07/05/18 at 21:00 Cyclobenzaprine HCl (Flexeril) 10 mg Q6H PO Last administered on 07/13/18at 17:30; Admin Dose 10 MG; Start 07/05/18 at 00:30 Docusate Sodium (Colace) 250 mg BID PO Last administered on 07/13/18 08:44; Admin Dose 250 MG; Start 07/05/18 at 09:00 Duloxetine HCl (Cymbalta) 60 mg DAILY PO Last administered on 07/13/18 08:35; Admin Dose 60 MG; Start 07/05/18 at 09:00 Econazole Nitrate (Spectazole 1% Cr) 15 applic DAILY TOP Last administered on 07/13/18 08:47; Admin Dose 15 APPLIC; Start 07/05/18 at 09:00 EZETIMIBE (Zetia) 10 mg DAILY PO Last administered on 07/13/18 08:44; Admin Dose 10 MG; Start 07/05/18 at 09:00 Fluocinonide (Lidex 0.05% Cr) 1 applic DAILY TOP Last administered on 07/13/18 09:00; Admin Dose 1 APPLIC; Start 07/05/18 at 09:00 Sevelamer Carbonate (Renvela) 1.6 gm WITH MEALS PO Last administered on 07/13/18 17:30; Admin Dose 1.6 GM; Start 07/05/18 at 07:55 Fenofibrate (Tricor) 145 mg DAILY PO Last administered on 07/13/18 08:44; Admin Dose 145 MG; Start 07/05/18 at 09:00 Tamsulosin HCl (Flomax) 0.4 mg HS PO Last administered on 07/12/18 20:49; Admin Dose 0.4 MG; Start 07/05/18 at 21:00 Zolpidem Tartrate (Ambien) 10 mg HS PRN PO INSOMNIA Last administered on 07/12 02:47; Admin Dose 10 MG; Start 07/05/18 at 01:00 Pregabalin (Lyrica) 50 mg BID PO Last administered on 07/13/18 08:53; Admin Dose 50 MG; Start 07/05/18 at 09:00 Lactulose (Enulose) 10 gm DAILY PRN PO CONSTIPATION; Start 07/05/18 at 01:00 Ondansetron HCl (Zofran Tab) 8 mg Q6H PRN PO NAUSEA AND/OR VOMITING; Start 07/05/18 at 01:00 Albuterol/ Ipratropium (Duoneb) 3 ml Q8H RESP THERAPY PRN HHN SHORTNESS OF BREATH; Start 07/05/18 at 01:00 Acetaminophen (Tylenol Tab) 500 mg Q6H PRN PO MILD PAIN(1-3)OR ELEVATED TEMP Last administered on 07/11/18 08:49; Admin Dose 500 MG; Start 07/05/18 at 01:00 Morphine Sulfate (morphine) 2 mg Q3 PRN IV SEVERE PAIN LEVEL 7-10 Last administered on 07/13/18 08:59; Admin Dose 2 MG; Start 07/05/18 at 01:00 Fluticasone/ Vilanterol (Breo Ellipta 100-25 Mcg Inh) 1 inh DAILY INH Last administered on 07/13/18 08:47; Admin Dose 1 INH; Start 07/05/18 at 09:00 Fish Oil (Fish Oil) 1,000 mg BID PO Last administered on 07/13/18 08:44; Admin Dose 1,000 MG; Start 07/05/18 at 09:00 Promethazine HCl/ Dextromethorphan (Phenergan-Dm) 5 ml Q4H PRN PO COUGH; Start 07/09/18 at 15:00 Heparin Sodium (Porcine) (Heparin (1000 Units/ml)) 4,000 unit AFTER DIALYSIS CATHETER ; Start 07/08/18 at 16:30 Albumin Human 50 ml @ 100 mls/hr WITH DIALYSIS PRN IV SBP < 90 DURING DIALYSIS Last administered on 07/09/18 14:07; Admin Dose 100 MLS/HR; Start 07/08/18 at 16:30 Amiodarone HCl 900 mg/Dextrose 500 ml @ 0 mls/hr Q0M IV Last administered on 07/14/18 01:18; Admin Dose 16.6 MLS/HR; Start 07/13/18 at 19:30 Propofol 100 ml @ 2.919 mls/ hr Q12H PRN IV AGITATION Last administered on 07/14/18 05:32; Admin Dose 14.57 MLS/HR; Start 07/13/18 at 23:[address] 100 mg/ Dextrose 100 ml @ 4.87 mls/hr TITRATE IV ; Start 07/13/18 at 23:00 Fentanyl 100 ml @ 2.5 mls/hr TITRATE PRN IV PAIN Last administered on 07/14/18 00:04; Admin Dose 5 MLS/HR; Start 07/13/18 at 23:30 Diagnostic Test (Pha) (Accu-Chek) 1 ea Q1H XX Last administered on 07/14/18at 06:52; Admin Dose 1 EA; Start 07/14/18 at 00:00 Insulin Human Regular 100 unit/ Sodium Chloride 100 ml @ 0 mls/hr PER PROTOCOL IV Last administered on 07/14/18at 00:49; Admin Dose 2 MLS/HR; Start 07/14/18 at 00:00 Miscellaneous Information (* Miscellaneous Pharmacy Order) Treatment of Hypoglycemia: 1.BG 51... Per protocol XX ; Start 07/14/18 at 00:00 Dextrose (D50w Syringe) 25 ml Q15M PRN IV .DECREASED GLUCOSE; Start 07/14/18 at 00:00 Dextrose (D50w Syringe) 50 ml Q15M PRN IV .DECREASED GLUCOSE; Start 07/14/18 at 00:00 Eye Lubricant (Artificial Tears Oph) 2 drop QID BOTH EYES Last administered on 07/14/18at 05:35; Admin Dose 2 DROP; Start 07/14/18 at 06:00 Eye Lubricant (Akwa Oint) 1 applic Q6H BOTH EYES Last administered on 07/14/18at 05:35; Admin Dose 1 APPLIC; Start 07/14/18 at 06:00 Acetaminophen (Tylenol Supp) 650 mg Q4H PRN [place] TEMP > 37C; Start 07/14/18 at 03:00 Acetaminophen (Tylenol Liquid) 650 mg Q4H PRN NGT TEMP > 37C; Start 07/14/18 at 03:00 Acetaminophen (Tylenol Supp) 500 mg Q6H [place] ; Start 07/15/18 at 03:00 Acetaminophen (Tylenol Liquid) 500 mg Q6H NGT ; Start 07/15/18 at 03:00 Meperidine HCl (Demerol) 12.5 mg Q4H PRN IV POST OPERATIVE SHIVERING; Start 07/14/18 at 03:00 Meperidine HCl (Demerol) 25 mg Q4H PRN IV POST OPERATIVE SHIVERING; Start 07/14/18 at 03:00 Norepinephrine 250 ml @ 1.875 mls/ hr TITRATE PRN IV BLOOD PRESSURE SUPPORT Last administered on 07/14/18at 06:19; Admin Dose 9.375 MLS/HR; Start 07/14/18 at 06:30 Aspirin (Aspirin) 81 mg DAILY NGT ; Start 07/14/18 at 09:00 Ticagrelor (Brilinta) 90 mg BID NGT ; Start 07/14/18 at 09:00 Famotidine (Pepcid Iv) 20 mg DAILY IV ; Start 07/14/18 at 09:00 KIMBERLY OTTO Jul 14, 2018 09:32
[2018-07-14] MEDS: ASPIRIN 81 MG TAB NGT SCH (09:35)
[2018-07-14] MEDS: FAMOTIDINE 20 MG INJ IV SCH (09:35)
[2018-07-14] MEDS: TICAGRELOR 90 MG TABLET NGT SCH ×2 (09:36→21:37)
--- NOTE | 2018-07-14 10:03 | CONS ---
Assessment/Plan Assessment/Plan Hospital Course (Demo Recall) 1. End-stage renal disease on maintenance hemodialysis. He was dialyzed yesterday. I will order hemodialysis for tomorrow. 2. Severe CAD, he is status post a cardiac arrest yesterday, he underwent a coronary angiogram with PCI and stent placement. 3. DM, 4. He is unresponsive, sedated and on with hypothermic protocol. 5. He has an intra-aortic balloon pump and is on pressors. 6. History of peripheral artery disease. Consultation Date/Type/Reason Admit Date/Time Jul 04, 2018 at 20:45 Initial Consult Date 07/06/18 Type of Consult Nephrology Date/Time of Note DATE: 07/14/18 TIME: 09:56 24 HR Interval Summary Free Text/Dictation This patient is now in the intensive care unit after having a cardiac arrest yesterday. He is sedated, intubated on a ventilator, on a hypothermia protocol, with intra-aortic balloon pump and on pressors. He underwent a coronary angiogram yesterday after the cardiac arrest and underwent a PCI with stenting. 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 Constitutional: non-verbal Respiratory: diminished breath sounds Cardiovascular: regular rate and rhythm Gastrointestinal: soft, distended Results Result Diagram: 07/14/18 0453 07/14/18 0453 Results 24hrs Laboratory Tests Test 07/13/18 11:44 07/13/18 13:18 07/13/18 17:08 07/13/18 18:38 Bedside Glucose 72 86 97 101 Test 07/13/18 19:42 07/13/18 20:45 07/13/18 23:46 07/14/18 00:21 White Blood 13.2 #H 16.3 #H Count Red Blood Count 3.28 L 3.18 L Hemoglobin 9.8 L 9.5 L Hematocrit 34.2 L 31.5 L Mean Corpuscular 104.3 H 99.1 Volume Mean Corpuscular 29.9 29.9 Hemoglobin Mean Corpuscular 28.7 L 30.2 L Hemoglobin Irma nt Red Cell 14.7 H 14.6 H Distribution Width Platelet Count 266 259 Mean Platelet 10.9 H 10.8 H Volume Immature 6.100 H 4.400 H Granulocytes % Neutrophils % 65.0 87.3 H Lymphocytes % 21.9 2.9 L Monocytes % 5.2 4.8 Eosinophils % 1.0 0.2 Basophils % 0.8 0.4 Nucleated Red 0.0 0.0 Blood Cells % Immature 0.800 H 0.720 H Granulocytes # Neutrophils # 8.6 H 14.3 H Lymphocytes # 2.9 0.5 L Monocytes # 0.7 0.8 Eosinophils # 0.1 0.0 Basophils # 0.1 0.1 Nucleated Red 0.0 0.0 Blood Cells # Sodium Level 139 135 Potassium Level 4.9 5.6 H Chloride Level 92 L 93 L Carbon Dioxide 27 22 Level Anion Gap 20 H 20 H Blood Urea 38 #H 49 #H Nitrogen Creatinine 4.20 #H 4.43 H Est Glomerular 15 L 14 L Filtrat Rate mL/min Glucose Level 168 240 H Lactic Acid 7.8 *H 1.4 Level Calcium Level 10.7 H 9.6 Phosphorus Level 10.0 H 8.0 #H Magnesium Level 3.5 H 2.8 H Total Bilirubin 0.2 Direct Bilirubin 0.00 Indirect 0.2 Bilirubin Aspartate Amino 294 H Transf (AST/SGOT ) Alanine 66 Aminotransferase (ALT/SGPT) Alkaline 113 Phosphatase Creatine Kinase 85 Creatine Kinase 7.4 Index Creatinine 6.25 H Kinase MB (Mass) Troponin I 0.111 3.910 *H Total Protein 6.9 Albumin 4.0 Globulin 2.90 Albumin/Globulin 1.37 Ratio Blood Gas Blood arterial Specimen Source Arterial Blood 07/13/2018 8:55: Date Drawn 48 PM Arterial Blood 7.413 pH (Temp corrected) Arterial Blood 44.3 pCO2 (Temp correct) Arterial Blood 86.7 pO2 (Temp corrected) Arterial Blood 27.6 H HCO3 Arterial Blood 2.7 Base Excess Arterial Blood 95.9 Oxygen Saturatio n Vin Test N/A Arterial Blood A-Line Gas Puncture Site Arterial 0.1 Blood Carboxyhem oglobin Arterial Blood 0.3 Methemoglobin Blood Gas A-a O2 292.4 H Differential Oxyhemoglobin 95.5 Percent Blood Gas 37.0 Temperature Blood Gas 18.0 Respiration Rate Blood Gas Actual 18 Respiration Rate Blood Gas VENT - AC Modality FiO2 60.0 Blood Gas Tidal 550.0 Volume Blood Gas Low 5.0 PEEP Setting Blood Gas MA Notified Whom Blood Gas 07/13/2018 9:04: Notified Time 46 PM Bedside Glucose 235 H Prothrombin Time 31.6 #H Prothrombin Time 2.5 Ratio INR 3.05 International Normalized Ratio Activated > 180.0 *H Partial Thrombop last Time Fibrinogen 660.0 H Amylase Level 40 Lipase 55 Test 07/14/18 00:40 07/14/18 01:48 07/14/18 02:00 07/14/18 02:52 Bedside Glucose 200 243 H 206 Blood Gas Blood arterial Specimen Source Arterial Blood 07/14/2018 2:20: Date Drawn 29 AM Arterial Blood 7.361 pH (Temp corrected) Arterial Blood 41.2 pCO2 (Temp correct) Arterial Blood 106.7 H pO2 (Temp corrected) Arterial Blood 23.4 HCO3 Arterial Blood -2.6 Base Excess Arterial Blood 97.6 Oxygen Saturatio n Vin Test N/A Arterial Blood A-Line Gas Puncture Site Arterial 0.1 Blood Carboxyhem oglobin Arterial Blood 0 Methemoglobin Blood Gas A-a O2 206.3 H Differential Oxyhemoglobin 97.5 Percent Blood Gas 34.6 Temperature Blood Gas 18.0 Respiration Rate Blood Gas Actual 18 Respiration Rate Blood Gas VENT - AC Modality FiO2 50.0 Blood Gas Tidal 550.0 Volume Blood Gas Low 5.0 PEEP Setting Blood Gas D CASSANDRA [employer]IGENCE ANALYST Notified Whom Blood Gas 07/14/2018 2:27: Notified Time 03 AM Test 07/14/18 03:49 07/14/18 04:53 07/14/18 04:55 07/14/18 05:57 Bedside Glucose 178 213 155 White Blood 14.4 H Count Red Blood Count 3.23 L Hemoglobin 9.7 L Hematocrit 32.1 L Mean Corpuscular 99.4 Volume Mean Corpuscular 30.0 Hemoglobin Mean Corpuscular 30.2 L Hemoglobin Irma nt Red Cell 14.7 H Distribution Width Platelet Count 234 Mean Platelet 10.8 H Volume Immature 4.500 H Granulocytes % Neutrophils % 84.7 H Lymphocytes % 6.6 L Monocytes % 3.8 Eosinophils % 0.2 Basophils % 0.2 Nucleated Red 0.0 Blood Cells % Immature 0.650 H Granulocytes # Neutrophils # 12.2 H Lymphocytes # 0.9 Monocytes # 0.6 Eosinophils # 0.0 Basophils # 0.0 Nucleated Red 0.0 Blood Cells # Prothrombin Time 26.0 H Prothrombin Time 2.0 Ratio INR 2.37 International Normalized Ratio Activated 157.4 *H Partial Thrombop last Time Fibrinogen 678.0 H Sodium Level 138 Potassium Level 5.2 H Chloride Level 93 L Carbon Dioxide 30 Level Anion Gap 15 H Blood Urea 51 H Nitrogen Creatinine 4.92 H Est Glomerular 12 L Filtrat Rate mL/min Glucose Level 154 Lactic Acid 2.4 *H Level Calcium Level 9.7 Phosphorus Level 8.7 H Magnesium Level 2.9 H Troponin I 9.150 *H Amylase Level 42 Lipase 80 Test 07/14/18 06:50 07/14/18 08:00 07/14/18 08:16 07/14/18 09:09 Bedside Glucose 136 74 72 Blood Gas Blood arterial Specimen Source Arterial Blood 07/14/2018 8:04: Date Drawn 33 AM Arterial Blood 7.563 *H pH (Temp corrected) Arterial Blood 30.6 L pCO2 (Temp correct) Arterial Blood 103.5 H pO2 (Temp corrected) Arterial Blood 28.2 H HCO3 Arterial Blood 4.5 H Base Excess Arterial Blood 98.0 Oxygen Saturatio n Vin Test N/A Arterial Blood A-Line Gas Puncture Site Arterial 0.3 Blood Carboxyhem oglobin Arterial Blood 0.3 Methemoglobin Blood Gas A-a O2 224.3 H Differential Oxyhemoglobin 97.4 Percent Blood Gas 31.9 Temperature Blood Gas 18.0 Respiration Rate Blood Gas Actual 18 Respiration Rate Blood Gas VENT - AC Modality FiO2 50.0 Blood Gas Tidal 550.0 Volume Blood Gas Low 5.0 PEEP Setting Blood Gas GSherry MITCHELLUBA CELSA Critical Value Read Back Blood Gas Richard Notified Whom Blood Gas 07/14/2018 8:15: Notified Time 47 AM Medications Medication Current Medications Amitriptyline HCl (Elavil) 50 mg DAILY PO Last administered on 07/13/18 08:52; Admin Dose 50 MG; Start 07/05/18 at 09:00 Atorvastatin Calcium (Lipitor) 80 mg QHS PO Last administered on 07/12/18 20:49; Admin Dose 80 MG; Start 07/05/18 at 21:00 Cyclobenzaprine HCl (Flexeril) 10 mg Q6H PO Last administered on 07/13/18 17:30; Admin Dose 10 MG; Start 07/05/18 at 00:30 Docusate Sodium (Colace) 250 mg BID PO Last administered on 07/13/18 08:44; Admin Dose 250 MG; Start 07/05/18 at 09:00 Duloxetine HCl (Cymbalta) 60 mg DAILY PO Last administered on 07/13/18 08:35; Admin Dose 60 MG; Start 07/05/18 at 09:00 Econazole Nitrate (Spectazole 1% Cr) 15 applic DAILY TOP Last administered on 07/13/18 08:47; Admin Dose 15 APPLIC; Start 07/05/18 at 09:00 EZETIMIBE (Zetia) 10 mg DAILY PO Last administered on 07/13/18 08:44; Admin Dose 10 MG; Start 07/05/18 at 09:00 Fluocinonide (Lidex 0.05% Cr) 1 applic DAILY TOP Last administered on 07/13/18 09:00; Admin Dose 1 APPLIC; Start 07/05/18 at 09:00 Sevelamer Carbonate (Renvela) 1.6 gm WITH MEALS PO Last administered on 07/13/18 17:30; Admin Dose 1.6 GM; Start 07/05/18 at 07:55 Fenofibrate (Tricor) 145 mg DAILY PO Last administered on 07/13/18 08:44; Admin Dose 145 MG; Start 07/05/18 at 09:00 Tamsulosin HCl (Flomax) 0.4 mg HS PO Last administered on 07/12/18 20:49; Admin Dose 0.4 MG; Start 07/05/18 at 21:00 Zolpidem Tartrate (Ambien) 10 mg HS PRN PO INSOMNIA Last administered on 07/12/18 02:47; Admin Dose 10 MG; Start 07/05/18 at 01:00 Pregabalin (Lyrica) 50 mg BID PO Last administered on 07/13/18 08:53; Admin Do se 50 MG; Start 07/05/18 at 09:00 Lactulose (Enulose) 10 gm DAILY PRN PO CONSTIPATION; Start 07/05/18 at 01:00 Ondansetron HCl (Zofran Tab) 8 mg Q6H PRN PO NAUSEA AND/OR VOMITING; Start 07/05/18 at 01:00 Albuterol/ Ipratropium (Duoneb) 3 ml Q8H RESP THERAPY PRN HHN SHORTNESS OF BREATH; Start 07/05/18 at 01:00 Acetaminophen (Tylenol Tab) 500 mg Q6H PRN PO MILD PAIN(1-3)OR ELEVATED TEMP Last administered on 07/11/18 08:49; Admin Dose 500 MG; Start 07/05/18 at 01:00 Morphine Sulfate (morphine) 2 mg Q3 PRN IV SEVERE PAIN LEVEL 7-10 Last administered on 07/13/18 08:59; Admin Dose 2 MG; Start 07/05/18 at 01:00 Fluticasone/ Vilanterol (Breo Ellipta 100-25 Mcg Inh) 1 inh DAILY INH Last administered on 07/13/18 08:47; Admin Dose 1 INH; Start 07/05/18 at 09:00 Fish Oil (Fish Oil) 1,000 mg BID PO Last administered on 07/13/18 08:44; Admin Dose 1,000 MG; Start 07/05/18 at 09:00 Promethazine HCl/ Dextromethorphan (Phenergan-Dm) 5 ml Q4H PRN PO COUGH; Start 07/09/18 at 15:00 Heparin Sodium (Porcine) (Heparin (1000 Units/ml)) 4,000 unit AFTER DIALYSIS CATHETER ; Start 07/08/18 at 16:30 Albumin Human 50 ml @ 100 mls/hr WITH DIALYSIS PRN IV SBP < 90 DURING DIALYSIS Last administered on 07/09/18at 14:07; Admin Dose 100 MLS/HR; Start 07/08/18 at 16:30 Amiodarone HCl 900 mg/Dextrose 500 ml @ 0 mls/hr Q0M IV Last administered on 07/14/18 01:18; Admin Dose 16.6 MLS/HR; Start 07/13/18 at 19:30 Propofol 100 ml @ 2.919 mls/ hr Q12H PRN IV AGITATION Last administered on 07/14/18at 05:32; Admin Dose 14.57 MLS/HR; Start 07/13/18 at 23:00 Vecuronium [place] 100 mg/ Dextrose 100 ml @ 4.87 mls/hr TITRATE IV ; Start 07/13/18 at 23:00 Fentanyl 100 ml @ 2.5 mls/hr TITRATE PRN IV PAIN Last administered on 07/14/18at 00:04; Admin Dose 5 MLS/HR; Start 07/13/18 at 23:30 Diagnostic Test (Pha) (Accu-Chek) 1 ea Q1H XX Last administered on 07/14/18at 06:52; Admin Dose 1 EA; Start 07/14/18 at 00:00 Insulin Human Regular 100 unit/ Sodium Chloride 100 ml @ 0 mls/hr PER PROTOCOL IV Last administered on 07/14/18at 00:49; Admin Dose 2 MLS/HR; Start 07/14/18 at 00:00 Miscellaneous Information (* Miscellaneous Pharmacy Order) Treatment of Hypoglycemia: 1.BG 51... Per protocol XX ; Start 07/14/18 at 00:00 Dextrose (D50w Syringe) 25 ml Q15M PRN IV .DECREASED GLUCOSE; Start 07/14/18 at 00:00 Dextrose (D50w Syringe) 50 ml Q15M PRN IV .DECREASED GLUCOSE; Start 07/14/18 at 00:00 Eye Lubricant (Artificial Tears Oph) 2 drop QID BOTH EYES Last administered on 07/14/18at 05:35; Admin Dose 2 DROP; Start 07/14/18 at 06:00 Eye Lubricant ([place] Oint) 1 applic Q6H BOTH EYES Last administered on 07/14/18at 05:35; Admin Dose 1 APPLIC; Start 07/14/18 at 06:00 Acetaminophen (Tylenol Supp) 650 mg Q4H PRN [place] TEMP > 37C; Start 07/14/18 at 03:00 Acetaminophen (Tylenol Liquid) 650 mg Q4H PRN NGT TEMP > 37C; Start 07/14/18 at 03:00 Acetaminophen (Tylenol Supp) 500 mg Q6H [place] ; Start 07/15/18 at 03:00 Acetaminophen (Tylenol Liquid) 500 mg Q6H NGT ; Start 07/15/18 at 03:00 Meperidine HCl (Demerol) 12.5 mg Q4H PRN IV POST OPERATIVE SHIVERING; Start 07/14/18 at 03:00 Meperidine HCl (Demerol) 25 mg Q4H PRN IV POST OPERATIVE SHIVERING; Start 07/14/18 at 03:00 Norepinephrine 250 ml @ 1.875 mls/ hr TITRATE PRN IV BLOOD PRESSURE SUPPORT Last administered on 07/14/18at 06:19; Admin Dose 9.375 MLS/HR; Start 07/14/18 at 06:30 Aspirin (Aspirin) 81 mg DAILY NGT Last administered on 07/14/18at 09:35; Admin Dose 81 MG; Start 07/14/18 at 09:00 Ticagrelor (Brilinta) 90 mg BID NGT Last administered on 07/14/18at 09:36; Admin Dose 90 MG; Start 07/14/18 at 09:00 Famotidine (Pepcid Iv) 20 mg DAILY IV Last administered on 07/14/18at 09:35; Admin Dose 20 MG; Start 07/14/18 at 09:00 TABITHA COVINGTON MD Jul 14, 2018 10:03
[2018-07-14] MEDS: DEXTROSE 50% 50 ML SYRINGE IV PRN (10:26)
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
[2018-07-14] MEDS: ECONAZOLE TOP SCH (13:10)
[2018-07-14] MEDS: FLUOCINONIDE 0.05% CR 30GM TUBE TOP SCH (13:12)
--- NOTE | 2018-07-14 20:18 | CONS ---
DATE OF ADMISSION: 07/04/2018 DATE OF CONSULTATION: REFERRING PHYSICIAN: Laura Ahn MD Thank you so much Dr. Ahn for asking me to see the patient with you. HISTORY OF PRESENT ILLNESS: The patient is 63 years old, in which I got a call about him today for e valuation. The patient is unresponsive, decreased mini mental status. The patient has multiple medi amanda problems, in which the patient had a code blue yesterday which was intubated and sent to intensiv e care unit, in which the patient is unresponsive, does not follow any verbal commands. The patient has a past medical history of end-stage renal disease and dialysis, has a bypass graft. The patient was having coronary artery disease, in which the patient is scheduled to transfer to [place]. Before h e goes, the patient had a code blue, in which the patient is unresponsive and sent to intensive care unit. MEDICATIONS: The patient has multiple medications include: 1. Tylenol 500 as needed. 2. Aspirin 81 mg once a day in G-tube. 3. Brilinta 90 mg twice a day. 4. Pepcid 20 mg once a day. 5. Norepinephrine as needed. 6. Propofol by titration. 7. Amiodarone 900 mg. 8. Heparin 4000 units after dialysis catheter. 9. Albumin human. 10. Lipitor 80 mg at night. 11. Elavil 50 mg once a day. 12. Colace 250 mg twice a day. 13. Cymbalta 60 mg. 14. Morphine 2 mg every 3 hours as needed. 15. Flexeril 10 mg every 6 hours as needed. 16. Albuterol inhaler as needed. PAST MEDICAL HISTORY: In the form of hypertension, coronary artery disease, dyslipidemia, end-stage renal disease, dialysis, insomnia, depression and anxiety. PHYSICAL EXAMINATION: GENERAL: Today, the patient does not follow any verbal commands. CRANIAL NERVES: Cranial II: Pupils are 3 mm with sluggish reaction to light. Cranial nerves V and VII: Intact corneal reflex. Cranial VIII through XII: Could not assess. MOTOR: Slight movement for painful stimuli to the right arm. Sensation, coordination and gait could not assess. HEART: Regular rate and rhythm. LUNGS: Equal breath sounds. ABDOMEN: Soft, relaxed, nondistended, no tenderness. ASSESSMENT AND PLAN: 1. The patient is 63 years old status post decreased mini mental status. 2. Status post coma. 3. Acute encephalopathy. 4. Anoxic brain injury, probably secondary to code blue. Follow up the patient with EEG over as well as CT scan. 5. Keep the patient under deep venous thrombosis prophylaxis and decubitus ulcer prophylaxis. 6. Possibility of underlying stroke in which the patient is already on aspirin and Brilinta. 7. Dyslipidemia. Continue the patient on Lipitor 80. 8. Status post respiratory failure in which the patient is intubated. 9. End-stage renal disease in which the patient is on dialysis. Again, thank you, Dr. Ahn, for asking me to see the patient with you. Dictated By: CELESTINA BORGES MD NA/NTS Conf#: [id number] DID#: [id number] CC: ANDREI ODELL MD; LAURA AHN MD;*EndCC*
[2018-07-14] MEDS: ATORVASTATIN 80 MG TAB PO SCH (21:00)
[2018-07-15] VITALS (93 sets, daily range): BP systolic 50–211; BP diastolic -4–152; PULSE 0–81; RESP 0–35
[2018-07-15] MEDS: AMIODARONE 900 MG in DEXTROSE 5% 482 ML IV SCH (00:12)
[2018-07-15] MEDS: ACCU-CHEK XX SCH ×12 (00:18→11:11)
[2018-07-15] MEDS: CYCLOBENZAPRINE 10 MG TAB PO SCH ×3 (00:30→12:21)
[2018-07-15] MEDS: OCULAR LUBRICANT 3.5 GM OPH OINT BOTH EYES SCH ×3 (00:36→12:23)
[2018-07-15] MEDS: PROPOFOL 100 ML IV PRN (01:38)
[2018-07-15] MEDS: ALBUMIN HUMAN 25% 50 ML IV PRN ×2 (02:27→12:00)
[2018-07-15] MEDS: ACETAMINOPHEN 650 MG SUPP PR SCH ×3 (03:00→15:00)
[2018-07-15] MEDS: ACETAMINOPHEN 650MG/20.3ML CUP NGT SCH ×3 (03:00→15:00)
[2018-07-15] MEDS: NORepinephrine 8MG/250 ML (PMX 250 ML IV PRN ×3 (04:11→13:38)
[2018-07-15] MEDS ORDERED: EPINEPHrine 0.1 MG/ML SYG ONE (07:00)
[2018-07-15] MEDS ORDERED: NA BICARBONATE 8.4% 50 ML SYG ONE ×2 (07:00→08:30)
[2018-07-15] MEDS ORDERED: CA GLUCONATE (GM) 10% 10ML INJ ONE (07:00)
[2018-07-15] MEDS ORDERED: PHENYLephrine 20MG IN 250 ML 250 ML ONE (08:16)
[2018-07-15] MEDS ORDERED: ATROPINE 1 MG/10 ML SYRINGE ONE (08:23)
[2018-07-15] MEDS ORDERED: NA BICARBONATE 8.4% 50 ML SYG IV STA (08:30)
[2018-07-15] MEDS ORDERED: DOPamine-D5W 1.6 MG/ML 250 ML ONE (08:42)
--- NOTE | 2018-07-15 08:45 | PN ---
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 Arterial Blood 37.8 pCO2 (Temp correct) Arterial Blood 86.7 pO2 (Temp corrected ) Arterial Blood 15.4 L HCO3 Arterial Blood -11.4 L Base Excess Arterial Blood 92.5 L Oxygen Saturati on Vin Test N/A Arterial Blood A-Line Gas Puncture Site Arterial 0.5 Blood Carboxyhe moglobin Arterial Blood 0.1 Methemoglobin Blood Gas A-a 118.9 H O2 Differential Oxyhemoglobin 91.9 L Percent Blood Gas 37.0 Temperature Blood Gas 18.0 Respiration Rate Blood Gas 18 Actual Respiration Rat e Blood Gas VENT - AC Modality FiO2 35.0 Blood Gas Tidal 500.0 Volume Blood Gas RLIM R.N. Critical Value Read Back Blood Gas MDA Notified Whom Blood Gas 07/15/2018 8:12: Notified Time 18 AM Medications Medication Current Medications Amitriptyline HCl (Elavil) 50 mg DAILY PO Last administered on 07/13/18 08:52; Admin Dose 50 MG; Start 07/05/18 at 09:00 Atorvastatin Calcium (Lipitor) 80 mg QHS PO Last administered on 07/12/18 20:49; Admin Dose 80 MG; Start 07/05/18 at 21:00 Cyclobenzaprine HCl (Flexeril) 10 mg Q6H PO Last administered on 07/13/18 17:30; Admin Dose 10 MG; Start 07/05/18 at 00:30 Docusate Sodium (Colace) 250 mg BID PO Last administered on 4/25/19at 08:44; Admin Dose 250 MG; Start 07/05/18 at 09:00 Duloxetine HCl (Cymbalta) 60 mg DAILY PO Last administered on 07/13/18 08:35; Admin Dose 60 MG; Start 07/05/18 at 09:00 Econazole Nitrate (Spectazole 1% Cr) 15 applic DAILY TOP Last administered on 07/14/18 13:10; Admin Dose 15 APPLIC; Start 07/05/18 at 09:00 Fluocinonide (Lidex 0.05% Cr) 1 applic DAILY TOP Last administered on 07/14/18 13:12; Admin Dose 1 APPLIC; Start 07/05/18 at 09:00 Albuterol/ Ipratropium (Duoneb) 3 ml Q8H RESP THERAPY PRN HHN SHORTNESS OF BREATH; Start 07/05/18 at 01:00 Acetaminophen (Tylenol Tab) 500 mg Q6H PRN PO MILD PAIN(1-3)OR ELEVATED TEMP [place] administered on 07/11/18 08:49; Admin Dose 500 MG; Start 07/05/18 at 01:00 Morphine Sulfate (morphine) 2 mg Q3 PRN IV SEVERE PAIN LEVEL 7-10 Last administered on 07/13/18 08:59; Admin Dose 2 MG; Start 07/05/18 at 01:00 Fluticasone/ Vilanterol (Breo Ellipta 100-25 Mcg Inh) 1 inh DAILY INH Last administered on 07/13/18 08:47; Admin Dose 1 INH; Start 07/05/18 at 09:00 Promethazine HCl/ Dextromethorphan (Phenergan-Dm) 5 ml Q4H PRN PO COUGH; Start 07/09/18 at 15:00 Heparin Sodium (Porcine) (Heparin (1000 Units/ml)) 4,000 unit AFTER DIALYSIS CATHETER ; Start 07/08/18 at 16:30 Albumin Human 50 ml @ 100 mls/hr WITH DIALYSIS PRN IV SBP < 90 DURING DIALYSIS Last administered on 07/15/18at 02:27; Admin Dose 100 MLS/HR; Start 07/08/18 at 16:30 Amiodarone HCl 900 mg/Dextrose 500 ml @ 0 mls/hr Q0M IV Last administered on 07/15/18at 00:12; Admin Dose 16.6 MLS/HR; Start 07/13/18 at 19:30 Propofol 100 ml @ 2.919 mls/ hr Q12H PRN IV AGITATION Last administered on 07/15/18at 01:38; Admin Dose 14.595 MLS/HR; Start 07/13/18 at 23:00 Vecuronium [place] 100 mg/ Dextrose 100 ml @ 4.87 mls/hr TITRATE IV ; Start 07/13/18 at 23:00 Fentanyl 100 ml @ 2.5 mls/hr TITRATE PRN IV PAIN Last administered on 07/14/18at 18:49; Admin Dose 5 MLS/HR; Start 07/13/18 at 23:30 Diagnostic Test (Pha) (Accu-Chek) 1 ea Q1H XX Last administered on 07/15/18 06:03; Admin Dose 1 EA; Start 07/14/18 at 00:00 Insulin Human Regular 100 unit/ Sodium Chloride 100 ml @ 0 mls/hr PER PROTOCOL IV Last administered on 07/14/18 00:49; Admin Dose 2 MLS/HR; Start 07/14/18 at 00:00 Miscellaneous Information (* Miscellaneous Pharmacy Order) Treatment of Hypoglycemia: 1.BG 51... Per protocol XX ; Start 07/14/18 at 00:00 Dextrose (D50w Syringe) 25 ml Q15M PRN IV .DECREASED GLUCOSE Last administered on 07/14/18at 10:26; Admin Dose 25 ML; Start 07/14/18 at 00:00 Dextrose (D50w Syringe) 50 ml Q15M PRN IV .DECREASED GLUCOSE; Start 07/14/18 at 00:00 Eye Lubricant (Artificial Tears Oph) 2 drop QID BOTH EYES Last administered on 07/14/18at 21:37; Admin Dose 2 DROP; Start 07/14/18 at 06:00 Eye Lubricant (Akwa Oint) 1 applic Q6H BOTH EYES Last administered on 07/15/18at 06:05; Admin Dose 1 APPLIC; Start 07/14/18 at 06:00 Acetaminophen (Tylenol Supp) 650 mg Q4H PRN [place] TEMP > 37C; Start 07/14/18 at 03:00 Acetaminophen (Tylenol Liquid) 650 mg Q4H PRN NGT TEMP > 37C; Start 07/14/18 at 03:00 Acetaminophen (Tylenol Supp) 500 mg Q6H [place] ; Start 07/15/18 at 03:00 Acetaminophen (Tylenol Liquid) 500 mg Q6H NGT ; Start 07/15/18 at 03:00 Norepinephrine 250 ml @ 1.875 mls/ hr TITRATE PRN IV BLOOD PRESSURE SUPPORT Last administered on 07/15/18at 04:11; Admin Dose 18.75 MLS/HR; Start 07/14/18 at 06:30 Aspirin (Aspirin) 81 mg DAILY NGT Last administered on 07/14/18at 09:35; Admin Dose 81 MG; Start 07/14/18 at 09:00 Ticagrelor (Brilinta) 90 mg BID NGT Last administered on 07/14/18at 21:37; Admin Dose 90 MG; Start 07/14/18 at 09:00 Famotidine (Pepcid Iv) 20 mg DAILY IV Last administered on 07/14/18at 09:35; Admin Dose 20 MG; Start 07/14/18 at 09:00 Sodium Bicarbonate 100 meq/Dextrose 1,000 ml @ 75 mls/hr [id number] IV ; Start 07/15/18 at 09:00; Status UNV Dopamine HCl/ Dextrose 250 ml @ 7.298 mls/ hr TITRATE IV ; Start 07/15/18 at 09:00 Phenylephrine HCl 250 ml @ 75 mls/hr TITRATE IV ; Start 07/15/18 at 09:00 LAURA AHN MD Jul 15, 2018 08:45
[2018-07-15] MEDS ORDERED: CA CHLORIDE 10% 10 ML SYRINGE ONE (08:54)
[2018-07-15] MEDS: AMITRIPTYLINE 50 MG TAB PO SCH (09:00)
[2018-07-15] MEDS ORDERED: CA CHLORIDE 10% 10 ML SYRINGE IV ONE (09:00)
[2018-07-15] MEDS ORDERED: SODIUM BICARBONATE (IV ADD) 100 MEQ in DEXTROSE 5% 1,000 ML IV SCH (09:00)
[2018-07-15] MEDS: DULOXETINE 30 MG CAP DR PO SCH (09:00)
[2018-07-15] MEDS: DOCUSATE SODIUM 250 MG CAP PO SCH (09:00)
[2018-07-15] MEDS: ARTIFICIAL TEARS 15 ML OPH BOTH EYES SCH ×2 (09:09→12:23)
--- NOTE | 2018-07-15 09:09 | CONS ---
Assessment/Plan Assessment/Plan Hospital Course (Demo Recall) Cardiac arrest: Initially 07/13 with initial rhythm PEA and then VT/VF during code. Unclear what incited the initial event (though K was 6.2 in the am, he received HD and post code K was 4.9), possibly still global ischemia or hypoxia. Now s/p emergent PCI 07/13. Repeat PEA 07/15 in setting of hyperkalemia with K 6.5. Hyperkalemia: K 6.5 and widening of QRS before code are consistent with reason for PEA. Had bicarb during code and recovered. Awaiting emergent HD Cardiogenic shock: IABP placed during cath. On two pressors Acute respiratory failure: intubated during code Unstable angina/CAD: complex three vessel CAD with ostial LAD, ostial OM, and occluded prox RCA COIL TAPER. In setting of DM, cardiomyopathy, and three vessel CAD, CABG would generally be appropriate. However decision made that pt is too high risk for CABG and should have PCI at a tertiary center should he need Impella or mechanical support. Unfortunately he had cardiac arrest while awaiting transfer and had to have emergent PCI with complete revascularization of his left system with PCI to OM and left main into LAD. RCA of COIL TAPER will be managed medically as it has been for many years NSTEMI: trop peaked at 18 post arrest. Neck pain: thought to be musculoskeletal as worse with movement and unrelated to his chest pain. Chronic systolic heart failure Ischemic cardiomyopathy EF 20% prior report but echo here shows EF 35-40% s/p ICD for secondary prevention Paroxysmal atrial fibrillation Severe PAD s/p prior bypass: occluded bypass on cath 07/06/18 s/p right transmetatarsal amputation ESRD on HD Uncontrolled DM HTN COPD Burn wound/cellulitis depression Likely noncompliance -I spoke with Dr. Tavera and he will arrange emergent HD -calcium, kayexelate, bicarb drip in the interim -continue IABP -levophed as needed to maintain augmentation >100. Add dopamine instead of phenylephrine. -repeat echo after HD -continue amiodarone drip at 0.5 -ASA -Brilinta 90mg BID -continue to hold Eliquis -hold coreg and benazepril 10mg -lipitor 80mg, zetia >40 min CC time Consultation Date/Type/Reason Admit Date/Time Jul 04, 2018 at 20:45 Initial Consult Date 07/05/18 Type of Consult Cardiology Requesting Provider: LAURA AHN MD Date/Time of Note DATE: 07/15/18 TIME: 09:01 24 HR Interval Summary Free Text/Dictation Overnight had increasing levophed requirements. This am K 6.5. Had PEA arrest again. There is an EKG immediately prior which shows widening QRS and then the pt coded. Apparently there was an attempt at HD last night but were not able to do more than some ultrafiltration according to the RN. Warming is also in process. Exam/Review of Systems Vital Signs Vitals Vital Signs Date Temp Pulse Resp B/P (MAP) Pulse Ox O2 O2 Flow FiO2 Time Delivery Rate 07/15/18 60 08:00 07/15/18 18 87/51 (63) 100 Mechanical 07:30 Ventilator 07/15/18 93.0 07:00 07/15/18 35 05:18 07/13/18 3.0 12:15 Intake and Output 07/14/18 07/14/18 07/15/18 1515:00 23:00 07:00 IntakeIntake Total 409.785 ml 381.935 ml 416.190 ml OutputOutput Total 50 ml 50 ml 850 ml BalanceBalance 359.785 ml 331.935 ml -433.810 ml Exam Constitutional: No alert, No oriented Head: normocephalic, atraumatic ENMT: intubated Neck: supple; No jvd (unabel to assess) Cardiovascular: regular rate and rhythm; No edema Gastrointestinal: soft, non-tender; No distended Musculoskeletal: No nl extremities to inspection Neurological: No nl mental status, No nl speech Labs Result Diagram: 07/15/18 0534 07/15/18 0555 Results 24hrs Laboratory Tests Test 07/14/18 09:09 07/14/18 10:16 07/14/18 10:50 07/14/18 11:20 Bedside Glucose 72 64 L 96 99 Test 07/14/18 12:14 07/14/18 12:15 07/14/18 12:16 07/14/18 13:17 White Blood 13.9 H Count Red Blood Count 3.28 L Hemoglobin 9.9 L Hematocrit 31.5 L Mean 96.0 Corpuscular Volume Mean 30.2 Corpuscular Hemoglobin Mean 31.4 L Corpuscular Hemoglobin Conc ent Red Cell 14.6 H Distribution Width Platelet Count 271 Mean Platelet 10.7 H Volume Immature 6.600 H Granulocytes % Neutrophils % 72.4 Segmented 71 Neutrophils % (Manual) Band 4 Neutrophils % (Manual) Lymphocytes % 12.9 L Lymphocytes % 13 L (Manual) Reactive 3 H Lymphocytes % (Manual) Monocytes % 7.1 Monocytes % 6 (Manual) Eosinophils % 0.3 Basophils % 0.7 Basophils % 1 (Manual) Myelocytes % 2 H (Manual) Nucleated Red 0.0 Blood Cells % Immature 0.920 H Granulocytes # Neutrophils # 10.0 H Neutrophils # 9.9 H (Manual) Band 0.5 Neutrophils # Lymphocytes 1.8 (Manual) Lymphocytes # 1.8 Reactive 0.4 H Lymphocytes # Monocytes # 1.0 H Monocytes # 0.8 (Manual) Eosinophils # 0.0 Basophils # 0.1 Basophils # 0.1 H (Manual) Myelocytes # 0.2 H Nucleated Red 0.0 Blood Cells # Platelet NORMAL Estimate Giant Platelets 2 H Polychromasia 3+ Poikilocytosis 1+ Anisocytosis 1+ Sodium Level 135 Potassium Level 5.6 H Chloride Level 94 L Carbon Dioxide 26 Level Anion Gap 15 H Blood Urea 56 H Nitrogen Creatinine 5.14 H Est Glomerular 11 L Filtrat Rate mL/min Glucose Level 163 Calcium Level 9.7 Phosphorus 8.6 H Level Magnesium Level 2.9 H Troponin I 14.400 *H Lactic Acid 2.2 *H Level Bedside Glucose 161 106 Test 07/14/18 14:00 07/14/18 15:00 07/14/18 16:22 07/14/18 17:57 Blood Gas Blood arterial Specimen Source Arterial Blood 07/14/2018 2:23: Date Drawn 23 PM Arterial Blood 7.433 pH (Temp corrected ) Arterial Blood 35.7 pCO2 (Temp correct) Arterial Blood 145.2 H pO2 (Temp corrected ) Arterial Blood 24.3 HCO3 Arterial Blood -0.9 Base Excess Arterial Blood 98.6 H Oxygen Saturati on Vin Test N/A Arterial Blood A-Line Gas Puncture Site Arterial 0.3 Blood Carboxyhe moglobin Arterial Blood 0.1 Methemoglobin Blood Gas A-a 175.7 H O2 Differential Oxyhemoglobin 98.2 Percent Blood Gas 33.1 Temperature Blood Gas 18.0 Respiration Rate Blood Gas 18 Actual Respiration Rat e Blood Gas VENT - AC Modality FiO2 50.0 Blood Gas Tidal 500.0 Volume Blood Gas Low 5.0 PEEP Setting Blood Gas M.D. Notified Whom Blood Gas 07/14/2018 2:42: Notified Time 11 PM Bedside Glucose 114 135 127 138 Test 07/14/18 18:00 07/14/18 20:00 07/14/18 20:05 07/14/18 22:06 White Blood 15.0 H Count Red Blood Count 3.32 L Hemoglobin 10.0 L Hematocrit 31.9 L Mean 96.1 Corpuscular Volume Mean 30.1 Corpuscular Hemoglobin Mean 31.3 L Corpuscular Hemoglobin Conc ent Red Cell 14.7 H Distribution Width Platelet Count 261 Mean Platelet 10.5 H Volume Immature 7.600 H Granulocytes % Neutrophils % Segmented 69 Neutrophils % (Manual) Band 5 H Neutrophils % (Manual) Lymphocytes % Lymphocytes % 12 L (Manual) Reactive 1 H Lymphocytes % (Manual) Monocytes % Monocytes % 4 (Manual) Eosinophils % Eosinophils % 2 (Manual) Basophils % Metamyelocytes 3 H % (manual) Myelocytes % 4 H (Manual) Nucleated Red 1 H Blood Cells % Immature 1.140 H Granulocytes # Neutrophils # Neutrophils # 10.5 H (Manual) Band 0.7 H Neutrophils # Lymphocytes 1.8 (Manual) Lymphocytes # Reactive 0.1 H Lymphocytes # Monocytes # Monocytes # 0.6 (Manual) Eosinophils # Basophils # Metamyelocytes 0.4 H # Myelocytes # 0.6 H Nucleated Red Blood Cells # Platelet DECREASED Estimate Giant Platelets 4 H Polychromasia 1+ Poikilocytosis 2+ Anisocytosis 1+ Prothrombin 19.8 #H Time Prothrombin 1.5 Time Ratio INR 1.67 International Normalized Rati o Activated 94.1 *H Partial Thrombo plast Time Fibrinogen 669.0 H Sodium Level 135 Potassium Level 5.7 H Chloride Level 94 L Carbon Dioxide 24 Level Anion Gap 17 H Blood Urea 60 H Nitrogen Creatinine 5.30 H Est Glomerular 11 L Filtrat Rate mL/min Glucose Level 165 Lactic Acid 2.0 Level Calcium Level 9.8 Phosphorus 9.0 H Level Magnesium Level 2.9 H Troponin I 18.000 *H Amylase Level 48 Lipase 498 H Blood Gas Blood arterial Specimen Source Arterial Blood 07/14/2018 8:00: Date Drawn 10 PM Arterial Blood 7.443 pH (Temp corrected ) Arterial Blood 31.2 L pCO2 (Temp correct) Arterial Blood 94.8 pO2 (Temp corrected ) Arterial Blood 21.8 L HCO3 Arterial Blood -2.9 Base Excess Arterial Blood 97.5 Oxygen Saturati on Vin Test N/A Arterial Blood A-Line Gas Puncture Site Arterial 0.3 Blood Carboxyhe moglobin Arterial Blood 0 Methemoglobin Blood Gas A-a 158.6 H O2 Differential Oxyhemoglobin 97.2 Percent Blood Gas 32.6 Temperature Blood Gas 18.0 Respiration Rate Blood Gas 18 Actual Respiration Rat e Blood Gas VENT - AC Modality FiO2 40.0 Blood Gas Tidal 500.0 Volume Blood Gas Low 5.0 PEEP Setting Blood Gas UP Notified Whom Blood Gas 07/14/2018 8:13: Notified Time 32 PM Bedside Glucose 157 126 Test 07/15/18 00:01 07/15/18 00:17 07/15/18 02:00 07/15/18 02:02 White Blood 14.2 H Count Red Blood Count 3.46 L Hemoglobin 10.3 L Hematocrit 32.8 L Mean 94.8 Corpuscular Volume Mean 29.8 Corpuscular Hemoglobin Mean 31.4 L Corpuscular Hemoglobin Conc ent Red Cell 14.7 H Distribution Width Platelet Count 269 Mean Platelet 10.8 H Volume Immature 7.100 H Granulocytes % Neutrophils % 76.0 Lymphocytes % 10.5 L Monocytes % 5.3 Eosinophils % 0.4 Basophils % 0.7 Nucleated Red 0.0 Blood Cells % Immature 1.010 H Granulocytes # Neutrophils # 10.8 H Lymphocytes # 1.5 Monocytes # 0.8 Eosinophils # 0.1 Basophils # 0.1 Nucleated Red 0.0 Blood Cells # Sodium Level 134 L Potassium Level 5.8 H Chloride Level 94 L Carbon Dioxide 22 Level Anion Gap 18 H Blood Urea 62 H Nitrogen Creatinine 5.64 H Est Glomerular 10 L Filtrat Rate mL/min Glucose Level 122 # Lactic Acid 3.9 *H Level Calcium Level 9.5 Phosphorus 9.9 H Level Magnesium Level 3.0 H Troponin I 17.500 *H Bedside Glucose 103 91 Blood Gas Blood Specimen arterial Source Arterial Blood 07/15/2018 1:46 Date Drawn :04 AM Arterial Blood 7.466 H pH (Temp corrected ) Arterial Blood 31.3 L pCO2 (Temp correct) Arterial Blood 94.3 pO2 (Temp corrected ) Arterial Blood 23.1 HCO3 Arterial Blood -1.4 Base Excess Arterial Blood 97.5 Oxygen Saturati on Vin Test N/A Arterial Blood A-Line Gas Puncture Site Arterial 0.3 Blood Carboxyhe moglobin Arterial Blood 0.3 Methemoglobin Blood Gas A-a 122.3 H O2 Differential Oxyhemoglobin 96.9 Percent Blood Gas 32.6 Temperature Blood Gas 18.0 Respiration Rate Blood Gas 18 Actual Respiration Rat e Blood Gas VENT - AC Modality FiO2 35.0 Blood Gas Tidal 500.0 Volume Blood Gas LS[facility] Notified Whom Blood Gas 07/15/2018 1:58 Notified Time :50 AM Test 07/15/18 04:06 07/15/18 05:34 07/15/18 05:52 07/15/18 05:55 Bedside Glucose 96 83 White Blood 11.8 H Count Red Blood Count 3.36 L Hemoglobin 10.2 L Hematocrit 32.3 L Mean 96.1 Corpuscular Volume Mean 30.4 Corpuscular Hemoglobin Mean 31.6 L Corpuscular Hemoglobin Conc ent Red Cell 14.7 H Distribution Width Platelet Count 262 Mean Platelet 11.3 H Volume Immature 9.300 H Granulocytes % Neutrophils % 72.0 Lymphocytes % 11.7 L Monocytes % 5.4 Eosinophils % 0.6 Basophils % 1.0 Nucleated Red 0.5 H Blood Cells % Immature 1.100 H Granulocytes # Neutrophils # 8.5 H Lymphocytes # 1.4 Monocytes # 0.6 Eosinophils # 0.1 Basophils # 0.1 Nucleated Red 0.1 H Blood Cells # Prothrombin 21.6 H Time Prothrombin 1.7 Time Ratio INR 1.87 International Normalized Rati o Activated 58.8 H Partial Thrombo plast Time Fibrinogen 604.0 #H Sodium Level 135 Potassium Level 6.5 *H Chloride Level 96 L Carbon Dioxide 18 L Level Anion Gap 21 H Blood Urea 49 #H Nitrogen Creatinine 4.73 H Est Glomerular 13 L Filtrat Rate mL/min Glucose Level 78 # Lactic Acid 7.6 *H Level Calcium Level 9.1 Phosphorus 9.1 H Level Magnesium Level 2.7 H Troponin I 15.400 *H Amylase Level 205 #H Lipase Pending Test 07/15/18 07:58 07/15/18 08:00 07/15/18 08:05 Bedside Glucose 45 *L 96 Blood Gas Blood arterial Specimen Source Arterial Blood 07/15/2018 8:04: Date Drawn 39 AM Arterial Blood 7.227 *L pH (Temp corrected ) Arterial Blood 37.8 pCO2 (Temp correct) Arterial Blood 86.7 pO2 (Temp corrected ) Arterial Blood 15.4 L HCO3 Arterial Blood -11.4 L Base Excess Arterial Blood 92.5 L Oxygen Saturati on Vin Test N/A Arterial Blood A-Line Gas Puncture Site Arterial 0.5 Blood Carboxyhe moglobin Arterial Blood 0.1 Methemoglobin Blood Gas A-a 118.9 H O2 Differential Oxyhemoglobin 91.9 L Percent Blood Gas 37.0 Temperature Blood Gas 18.0 Respiration Rate Blood Gas 18 Actual Respiration Rat e Blood Gas VENT - AC Modality FiO2 35.0 Blood Gas Tidal 500.0 Volume Blood Gas RLIM R.N. Critical Value Read Back Blood Gas MDA Notified Whom Blood Gas 07/15/2018 8:12: Notified Time 18 AM Medications Medications Current Medications Amitriptyline HCl (Elavil) 50 mg DAILY PO Last administered on 07/13/18 08:52; Admin Dose 50 MG; Start 07/05/18 at 09:00 Atorvastatin Calcium (Lipitor) 80 mg QHS PO Last administered on 07/12/18 20:49; Admin Dose 80 MG; Start 07/05/18 at 21:00 Cyclobenzaprine HCl (Flexeril) 10 mg Q6H PO Last administered on 07/13/18 17:30; Admin Dose 10 MG; Start 07/05/18 at 00:30 Docusate Sodium (Colace) 250 mg BID PO Last administered on 07/13/18 08:44; Admin Dose 250 MG; Start 07/05/18 at 09:00 Duloxetine HCl (Cymbalta) 60 mg DAILY PO Last administered on 07/13/18 08:35; Admin Dose 60 MG; Start 07/05/18 at 09:00 Econazole Nitrate (Spectazole 1% Cr) 15 applic DAILY TOP Last administered on 07/14/18 13:10; Admin Dose 15 APPLIC; Start 07/05/18 at 09:00 Fluocinonide (Lidex 0.05% Cr) 1 applic DAILY TOP Last administered on 07/14/18 13:12; Admin Dose 1 APPLIC; Start 07/05/18 at 09:00 Albuterol/ Ipratropium (Duoneb) 3 ml Q8H RESP THERAPY PRN HHN SHORTNESS OF BREATH; Start 07/05/18 at 01:00 Acetaminophen (Tylenol Tab) 500 mg Q6H PRN PO MILD PAIN(1-3)OR ELEVATED TEMP Last administered on 07/11/18 08:49; Admin Dose 500 MG; Start 07/05/18 at 01:00 Morphine Sulfate (morphine) 2 mg Q3 PRN IV SEVERE PAIN LEVEL 7-10 Last administered on 07/13/18 08:59; Admin Dose 2 MG; Start 07/05/18 at 01:00 Fluticasone/ Vilanterol (Breo Ellipta 100-25 Mcg Inh) 1 inh DAILY INH Last administered on 07/13/18 08:47; Admin Dose 1 INH; Start 07/05/18 at 09:00 Promethazine HCl/ Dextromethorphan (Phenergan-Dm) 5 ml Q4H PRN PO COUGH; Start 07/09/18 at 15:00 Heparin Sodium (Porcine) (Heparin (1000 Units/ml)) 4,000 unit AFTER DIALYSIS CATHETER ; Start 07/08/18 at 16:30 Albumin Human 50 ml @ 100 mls/hr WITH DIALYSIS PRN IV SBP < 90 DURING DIALYSIS Last administered on 07/15/18 02:27; Admin Dose 100 MLS/HR; Start 07/08/18 at 16:30 Amiodarone HCl 900 mg/Dextrose 500 ml @ 0 mls/hr Q0M IV Last administered on 07/15/18 00:12; Admin Dose 16.6 MLS/HR; Start 07/13/18 at 19:30 Propofol 100 ml @ 2.919 mls/ hr Q12H PRN IV AGITATION Last administered on 07/15/18 01:38; Admin Dose 14.595 MLS/HR; Start 07/13/18 at 23:00 Vecuronium [place] 100 mg/ Dextrose 100 ml @ 4.87 mls/hr TITRATE IV ; Start 07/13/18 at 23:00 Fentanyl 100 ml @ 2.5 mls/hr TITRATE PRN IV PAIN Last administered on 07/14/18 18:49; Admin Dose 5 MLS/HR; Start 07/13/18 at 23:30 Diagnostic Test (Pha) (Accu-Chek) 1 ea Q1H XX Last administered on 07/15/18 08:45; Admin Dose 1 EA; Start 07/14/18 at 00:00 Insulin Human Regular 100 unit/ Sodium Chloride 100 ml @ 0 mls/hr PER PROTOCOL IV Last administered on 07/14/18at 00:49; Admin Dose 2 MLS/HR; Start 07/14/18 at 00:00 Miscellaneous Information (* Miscellaneous Pharmacy Order) Treatment of Hypoglycemia: 1.BG 51... Per protocol XX ; Start 07/14/18 at 00:00 Dextrose (D50w Syringe) 25 ml Q15M PRN IV .DECREASED GLUCOSE Last administered on 07/14/18at 10:26; Admin Dose 25 ML; Start 07/14/18 at 00:00 Dextrose (D50w Syringe) 50 ml Q15M PRN IV .DECREASED GLUCOSE; Start 07/14/18 at 00:00 Eye Lubricant (Artificial Tears Oph) 2 drop QID BOTH EYES Last administered on 07/14/18at 21:37; Admin Dose 2 DROP; Start 07/14/18 at 06:00 Eye Lubricant (Akwa Oint) 1 applic Q6H BOTH EYES Last administered on 07/15/18at 06:05; Admin Dose 1 APPLIC; Start 07/14/18 at 06:00 Acetaminophen (Tylenol Supp) 650 mg Q4H PRN [place] TEMP > 37C; Start 07/14/18 at 03:00 Acetaminophen (Tylenol Liquid) 650 mg Q4H PRN NGT TEMP > 37C; Start 07/14/18 at 03:00 Acetaminophen (Tylenol Supp) 500 mg Q6H [place] ; Start 07/15/18 at 03:00 Acetaminophen (Tylenol Liquid) 500 mg Q6H NGT ; Start 07/15/18 at 03:00 Norepinephrine 250 ml @ 1.875 mls/ hr TITRATE PRN IV BLOOD PRESSURE SUPPORT Last administered on 07/15/18at 04:11; Admin Dose 18.75 MLS/HR; Start 07/14/18 at 06:30 Aspirin (Aspirin) 81 mg DAILY NGT Last administered on 07/14/18at 09:35; Admin Dose 81 MG; Start 07/14/18 at 09:00 Ticagrelor (Brilinta) 90 mg BID NGT Last administered on 07/14/18at 21:37; Admin Dose 90 MG; Start 07/14/18 at 09:00 Famotidine (Pepcid Iv) 20 mg DAILY IV Last administered on 07/14/18at 09:35; Admin Dose 20 MG; Start 07/14/18 at 09:00 Sodium Bicarbonate 100 meq/Dextrose 1,000 ml @ 75 mls/hr [id number] IV ; Start 07/15/18 at 09:00 Dopamine HCl/ Dextrose 250 ml @ 7.298 mls/ hr TITRATE IV ; Start 07/15/18 at 09:00 Phenylephrine HCl 250 ml @ 75 mls/hr TITRATE IV ; Start 07/15/18 at 09:00 Calcium Chloride (Ca Chloride 10% Syg) 1,000 mg ONCE ONCE IV ; Start 07/15/18 at 09:00; Stop 07/15/18 at 09:01 TAHIRA BUCHANAN Jul 15, 2018 09:09
[2018-07-15] MEDS: DOPamine-D5W 1.6 MG/ML 250 ML IV SCH ×2 (09:15→12:59)
[2018-07-15] MEDS: PHENYLephrine 20MG IN 250 ML 250 ML IV SCH ×5 (09:16→15:56)
[2018-07-15] MEDS: ASPIRIN 81 MG TAB NGT SCH (09:24)
[2018-07-15] MEDS: TICAGRELOR 90 MG TABLET NGT SCH (09:24)
[2018-07-15] MEDS: FAMOTIDINE 20 MG INJ IV SCH (09:25)
[2018-07-15] MEDS: FLUOCINONIDE 0.05% CR 30GM TUBE TOP SCH (09:28)
[2018-07-15] MEDS: ECONAZOLE TOP SCH (09:28)
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
[2018-07-15] MEDS ORDERED: SODIUM POLYSTYRENE 15 GM KIT (POWDER + SORBITOL) PO ONE (10:00)
[2018-07-15] MEDS: DEXTROSE 50% 50 ML SYRINGE IV PRN (10:01)
[2018-07-15] MEDS ORDERED: GLUCAGON 1 MG INJ IM PRN (12:00)
[2018-07-15] MEDS ORDERED: GLUCOSE GEL 15 GRAM TUBE BUCCAL PRN (12:00)
[2018-07-15] MEDS ORDERED: GLUCOSE GEL 15 GRAM TUBE PO PRN ×2 (12:00)
[2018-07-15] MEDS ORDERED: DEXTROSE 50% 50 ML SYRINGE IV PRN ×2 (12:00)
--- NOTE | 2018-07-15 12:25 | CONS ---
Consult Date/Type/Reason Admit Date/Time Jul 04, 2018 at 20:45 Initial Consult Date 07/14/18 Type of Consultation: Pulm/CCM Requesting Provider: LAURA AHN MD Date/Time of Note DATE: 07/15/18 TIME: 12:17 Subjective s/p PEA arrest earlier this am with CPA and ROSC after 20 minutes. He is now comatose and flaccid on the vent. Objective Vitals Vital Signs Date Temp Pulse Resp B/P (MAP) Pulse Ox O2 O2 Flow FiO2 Time Delivery Rate 07/15/18 78 11:15 07/15/18 18 108/71 98 Mechanical 11:15 (83) Ventilator 07/15/18 95.8 11:00 07/15/18 100 08:30 07/13/18 3.0 12:15 Intake and Output 07/14/18 07/14/18 07/15/18 1515:00 23:00 07:00 IntakeIntake Total 409.785 ml 381.935 ml 497.585 ml OutputOutput Total 50 ml 50 ml 850 ml BalanceBalance 359.785 ml 331.935 ml -352.415 ml Exam HEENT: Neck supple; no JVD; no LAD; + ET tube CVS: RRR, S1 and S2 CHEST: Coarse BS ABD: Obese, NT, + BS EXT: + edema NEURO: Comatose; Pupils fixed and dilated; no GAG reflex; not overbreathing vent. Results/Medications Result Diagram: 07/15/18 0534 07/15/18 0555 Results 24 hrs Laboratory Tests Test 07/14/18 13:17 07/14/18 14:00 07/14/18 15:00 07/14/18 16:22 Bedside Glucose 106 114 135 127 Blood Gas Blood arterial Specimen Source Arterial Blood 07/14/2018 2:23: Date Drawn 23 PM Arterial Blood 7.433 pH (Temp corrected ) Arterial Blood 35.7 pCO2 (Temp correct) Arterial Blood 145.2 H pO2 (Temp corrected ) Arterial Blood 24.3 HCO3 Arterial Blood -0.9 Base Excess Arterial Blood 98.6 H Oxygen Saturati on Vin Test N/A Arterial Blood A-Line Gas Puncture Site Arterial 0.3 Blood Carboxyhe moglobin Arterial Blood 0.1 Methemoglobin Blood Gas A-a 175.7 H O2 Differential Oxyhemoglobin 98.2 Percent Blood Gas 33.1 Temperature Blood Gas 18.0 Respiration Rate Blood Gas 18 Actual Respiration Rat e Blood Gas VENT - AC Modality FiO2 50.0 Blood Gas Tidal 500.0 Volume Blood Gas Low 5.0 PEEP Setting Blood Gas M.DSherry Notified Whom Blood Gas 07/14/2018 2:42: Notified Time 11 PM Test 07/14/18 17:57 07/14/18 18:00 07/14/18 20:00 07/14/18 20:05 Bedside Glucose 138 157 White Blood 15.0 H Count Red Blood Count 3.32 L Hemoglobin 10.0 L Hematocrit 31.9 L Mean 96.1 Corpuscular Volume Mean 30.1 Corpuscular Hemoglobin Mean 31.3 L Corpuscular Hemoglobin Conc ent Red Cell 14.7 H Distribution Width Platelet Count 261 Mean Platelet 10.5 H Volume Immature 7.600 H Granulocytes % Neutrophils % Segmented 69 Neutrophils % (Manual) Band 5 H Neutrophils % (Manual) Lymphocytes % Lymphocytes % 12 L (Manual) Reactive 1 H Lymphocytes % (Manual) Monocytes % Monocytes % 4 (Manual) Eosinophils % Eosinophils % 2 (Manual) Basophils % Metamyelocytes 3 H % (manual) Myelocytes % 4 H (Manual) Nucleated Red 1 H Blood Cells % Immature 1.140 H Granulocytes # Neutrophils # Neutrophils # 10.5 H (Manual) Band 0.7 H Neutrophils # Lymphocytes 1.8 (Manual) Lymphocytes # Reactive 0.1 H Lymphocytes # Monocytes # Monocytes # 0.6 (Manual) Eosinophils # Basophils # Metamyelocytes 0.4 H # Myelocytes # 0.6 H Nucleated Red Blood Cells # Platelet DECREASED Estimate Giant Platelets 4 H Polychromasia 1+ Poikilocytosis 2+ Anisocytosis 1+ Prothrombin 19.8 #H Time Prothrombin 1.5 Time Ratio INR 1.67 International Normalized Rati o Activated 94.1 *H Partial Thrombo plast Time Fibrinogen 669.0 H Sodium Level 135 Potassium Level 5.7 H Chloride Level 94 L Carbon Dioxide 24 Level Anion Gap 17 H Blood Urea 60 H Nitrogen Creatinine 5.30 H Est Glomerular 11 L Filtrat Rate mL/min Glucose Level 165 Lactic Acid 2.0 Level Calcium Level 9.8 Phosphorus 9.0 H Level Magnesium Level 2.9 H Troponin I 18.000 *H Amylase Level 48 Lipase 498 H Blood Gas Blood arterial Specimen Source Arterial Blood 07/14/2018 8:00: Date Drawn 10 PM Arterial Blood 7.443 pH (Temp corrected ) Arterial Blood 31.2 L pCO2 (Temp correct) Arterial Blood 94.8 pO2 (Temp corrected ) Arterial Blood 21.8 L HCO3 Arterial Blood -2.9 Base Excess Arterial Blood 97.5 Oxygen Saturati on Vin Test N/A Arterial Blood A-Line Gas Puncture Site Arterial 0.3 Blood Carboxyhe moglobin Arterial Blood 0 Methemoglobin Blood Gas A-a 158.6 H O2 Differential Oxyhemoglobin 97.2 Percent Blood Gas 32.6 Temperature Blood Gas 18.0 Respiration Rate Blood Gas 18 Actual Respiration Rat e Blood Gas VENT - AC Modality FiO2 40.0 Blood Gas Tidal 500.0 Volume Blood Gas Low 5.0 PEEP Setting Blood Gas UP Notified Whom Blood Gas 07/14/2018 8:13: Notified Time 32 PM Test 07/14/18 22:06 07/15/18 00:01 07/15/18 00:17 07/15/18 02:00 Bedside Glucose 126 103 White Blood 14.2 H Count Red Blood Count 3.46 L Hemoglobin 10.3 L Hematocrit 32.8 L Mean 94.8 Corpuscular Volume Mean 29.8 Corpuscular Hemoglobin Mean 31.4 L Corpuscular Hemoglobin Conc ent Red Cell 14.7 H Distribution Width Platelet Count 269 Mean Platelet 10.8 H Volume Immature 7.100 H Granulocytes % Neutrophils % 76.0 Lymphocytes % 10.5 L Monocytes % 5.3 Eosinophils % 0.4 Basophils % 0.7 Nucleated Red 0.0 Blood Cells % Immature 1.010 H Granulocytes # Neutrophils # 10.8 H Lymphocytes # 1.5 Monocytes # 0.8 Eosinophils # 0.1 Basophils # 0.1 Nucleated Red 0.0 Blood Cells # Sodium Level 134 L Potassium Level 5.8 H Chloride Level 94 L Carbon Dioxide 22 Level Anion Gap 18 H Blood Urea 62 H Nitrogen Creatinine 5.64 H Est Glomerular 10 L Filtrat Rate mL/min Glucose Level 122 # Lactic Acid 3.9 *H Level Calcium Level 9.5 Phosphorus 9.9 H Level Magnesium Level 3.0 H Troponin I 17.500 *H Blood Gas Blood Specimen arterial Source Arterial Blood 07/15/2018 1:46 Date Drawn :04 AM Arterial Blood 7.466 H pH (Temp corrected ) Arterial Blood 31.3 L pCO2 (Temp correct) Arterial Blood 94.3 pO2 (Temp corrected ) Arterial Blood 23.1 HCO3 Arterial Blood -1.4 Base Excess Arterial Blood 97.5 Oxygen Saturati on Vin Test N/A Arterial Blood A-Line Gas Puncture Site Arterial 0.3 Blood Carboxyhe moglobin Arterial Blood 0.3 Methemoglobin Blood Gas A-a 122.3 H O2 Differential Oxyhemoglobin 96.9 Percent Blood Gas 32.6 Temperature Blood Gas 18.0 Respiration Rate Blood Gas 18 Actual Respiration Rat e Blood Gas VENT - AC Modality FiO2 35.0 Blood Gas Tidal 500.0 Volume Blood Gas LSherry [facility] Notified Whom Blood Gas 07/15/2018 1:58 Notified Time :50 AM Test 07/15/18 02:02 07/15/18 04:06 07/15/18 05:34 07/15/18 05:52 Bedside Glucose 91 96 83 White Blood 11.8 H Count Red Blood Count 3.36 L Hemoglobin 10.2 L Hematocrit 32.3 L Mean 96.1 Corpuscular Volume Mean 30.4 Corpuscular Hemoglobin Mean 31.6 L Corpuscular Hemoglobin Conc ent Red Cell 14.7 H Distribution Width Platelet Count 262 Mean Platelet 11.3 H Volume Immature 9.300 H Granulocytes % Neutrophils % 72.0 Segmented 49 Neutrophils % (Manual) Band 21 H Neutrophils % (Manual) Lymphocytes % 11.7 L Lymphocytes % 12 L (Manual) Reactive 9 H Lymphocytes % (Manual) Monocytes % 5.4 Monocytes % 3 (Manual) Eosinophils % 0.6 Eosinophils % 1 (Manual) Basophils % 1.0 Basophils % 1 (Manual) Myelocytes % 2 H (Manual) Promyelocytes % 2 H (Manual) Nucleated Red 0.5 H Blood Cells % Immature 1.100 H Granulocytes # Neutrophils # 8.5 H Neutrophils # 6.1 (Manual) Band 2.4 H Neutrophils # Lymphocytes 1.4 (Manual) Lymphocytes # 1.4 Reactive 1.0 H Lymphocytes # Monocytes # 0.6 Monocytes # 0.3 (Manual) Eosinophils # 0.1 Basophils # 0.1 Basophils # 0.1 H (Manual) Myelocytes # 0.2 H Promyelocytes # 0.2 H Nucleated Red 0.1 H Blood Cells # Platelet NORMAL Estimate Giant Platelets 1 H Polychromasia 2+ Anisocytosis 1+ Macrocytosis 1+ Test 07/15/18 05:55 4/27/19 07:58 07/15/18 08:00 07/15/18 08:05 Prothrombin 21.6 H Time Prothrombin 1.7 Time Ratio INR 1.87 International Normalized Rati o Activated 58.8 H Partial Thrombo plast Time Fibrinogen 604.0 #H Sodium Level 135 Potassium Level 6.5 *H Chloride Level 96 L Carbon Dioxide 18 L Level Anion Gap 21 H Blood Urea 49 #H Nitrogen Creatinine 4.73 H Est Glomerular 13 L Filtrat Rate mL/min Glucose Level 78 # Lactic Acid 7.6 *H Level Calcium Level 9.1 Phosphorus 9.1 H Level Magnesium Level 2.7 H Troponin I 15.400 *H Amylase Level 205 #H Lipase 4742 H Bedside Glucose 45 *L 96 Blood Gas Blood arterial Specimen Source Arterial Blood 07/15/2018 8:04: Date Drawn 39 AM Arterial Blood 7.227 *L pH (Temp corrected ) Arterial Blood 37.8 pCO2 (Temp correct) Arterial Blood 86.7 pO2 (Temp corrected ) Arterial Blood 15.4 L HCO3 Arterial Blood -11.4 L Base Excess Arterial Blood 92.5 L Oxygen Saturati on Vin Test N/A Arterial Blood A-Line Gas Puncture Site Arterial 0.5 Blood Carboxyhe moglobin Arterial Blood 0.1 Methemoglobin Blood Gas A-a 118.9 H O2 Differential Oxyhemoglobin 91.9 L Percent Blood Gas 37.0 Temperature Blood Gas 18.0 Respiration Rate Blood Gas 18 Actual Respiration Rat e Blood Gas VENT - AC Modality FiO2 35.0 Blood Gas Tidal 500.0 Volume Blood Gas RLIM R.N. Critical Value Read Back Blood Gas MDA Notified Whom Blood Gas 07/15/2018 8:12: Notified Time 18 AM Test 07/15/18 09:58 07/15/18 10:16 Bedside Glucose 56 L 179 Home Meds Reported Medications Econazole Nitrate (Econazole Nitrate) 15 Gm Cream..g., 15 GM TP 06/12/18 Ezetimibe* (Zetia*) 10 Mg Tablet, 10 MG PO, TAB 06/12/18 Ondansetron Hcl* (Ondansetron Hcl*) 8 Mg Tablet, 8 MG PO, TAB 06/12/18 Fluocinonide* (Fluocinonide* Cream) 0.1% - 120 Gm Cream..g., 1 APPLIC TOP, TUB 06/12/18 Ipratropium [place]* (Atrovent HFA*) 12.9 Gm Aer.w.adap, 2 PUFF INHALATION for SHORTNESS OF BREATH, #1 INHALER 06/12/18 Metolazone* (Metolazone*) 10 Mg Tablet, 10 MG PO, TAB 06/12/18 Promethazine/Phenyleph/Codeine (Ymorqadjlwrf-LF-Icqdmrw Syrup) 118 Ml Syrup, 118 ML PO 06/12/18 Amitriptyline Hcl* (Amitriptyline Hcl*) 50 Mg Tablet, 50 MG PO, #30 TAB 06/12/18 Duloxetine Hcl* (Duloxetine Hcl*) 60 Mg Capsule.dr, 60 MG PO, #30 CAP 06/12/18 Icosapent Ethyl (VASCEPA) 1 Gm Capsule, 1 GM PO, CAP 06/12/18 Benazepril Hcl* (Benazepril Hcl*) 10 Mg Tablet, 10 MG PO, #60 TAB 06/12/18 Budesonide-Formoterol Fumarate* (Symbicort*) 80-4.5 Mcg Hfa.aer.ad, 2 PUFF INHALATION, BOTTLE 06/12/18 Lactulose* (Lactulose*) 10 Gm/15 Ml Solution, 10 GM PO, ML 06/12/18 Furosemide* (Furosemide*) 80 Mg Tablet, 80 MG PO BID, #60 TAB 04/19/18 Sevelamer Carbonate* (Renvela*) 800 Mg Tablet, 1.6 GM PO WITH MEALS, TAB 03/05/18 Metoprolol Succinate* (Toprol XL*) 50 Mg Tab.er.24h, 50 MG PO DAILY, #30 TAB 03/05/18 Insulin Degludec (Tresiba Flextouch U-100) 100 Unit/1 Ml Insuln.pen, 40 UNIT SQ QHS 03/05/18 Insulin Aspart* (Novolog Insulin Pen*) 100 Unit/Ml Soln, 12 UNIT SC WITH MEALS, EA 03/05/18 Esomeprazole Mag Trihydrate (Nexium) 40 Mg Capsule.dr, 40 MG PO DAILY, #30 CAP 03/05/18 Docusate Sodium* (Colace*) 250 Mg Capsule, 250 MG PO BID, #60 CAP 03/05/18 Cyclobenzaprine Hcl* (Cyclobenzaprine Hcl*) 10 Mg Tablet, 10 MG PO Q6H, #60 TAB 03/05/18 Clopidogrel Bisulfate (Clopidogrel) 75 Mg Tablet, 75 MG PO DAILY, #30 TAB 03/05/18 Atorvastatin* (Atorvastatin*) 80 Mg Tablet, 80 MG PO QHS, #30 TAB 03/05/18 Aspirin* (Aspirin* EC) 81 Mg Tablet.dr, 81 MG PO DAILY, TAB 03/05/18 Apixaban* (Eliquis*) 2.5 Mg Tablet, 2.5 MG PO BID, TAB 03/05/18 Medications Current Medications Amitriptyline HCl (Elavil) 50 mg DAILY PO Last administered on 07/13/18 08:52; Admin Dose 50 MG; Start 07/05/18 at 09:00 Atorvastatin Calcium (Lipitor) 80 mg QHS PO Last administered on 07/12/18 20:49; Admin Dose 80 MG; Start 07/05/18 at 21:00 Cyclobenzaprine HCl (Flexeril) 10 mg Q6H PO Last administered on 07/13/18 17 :30; Admin Dose 10 MG; Start 07/05/18 at 00:30 Docusate Sodium (Colace) 250 mg BID PO Last administered on 07/13/18 08:44; Admin Dose 250 MG; Start 07/05/18 at 09:00 Duloxetine HCl (Cymbalta) 60 mg DAILY PO Last administered on 07/13/18 08:35; Admin Dose 60 MG; Start 07/05/18 at 09:00 Econazole Nitrate (Spectazole 1% Cr) 15 applic DAILY TOP Last administered on 07/15/18 09:28; Admin Dose 15 APPLIC; Start 07/05/18 at 09:00 Fluocinonide (Lidex 0.05% Cr) 1 applic DAILY TOP Last administered on 07/15/18 09:28; Admin Dose 1 APPLIC; Start 07/05/18 at 09:00 Albuterol/ Ipratropium (Duoneb) 3 ml Q8H RESP THERAPY PRN HHN SHORTNESS OF BREATH; Start 07/05/18 at 01:00 Acetaminophen (Tylenol Tab) 500 mg Q6H PRN PO MILD PAIN(1-3)OR ELEVATED TEMP Last administered on 07/11/18 08:49; Admin Dose 500 MG; Start 07/05/18 at 01:00 Morphine Sulfate (morphine) 2 mg Q3 PRN IV SEVERE PAIN LEVEL 7-10 Last administered on 07/13/18 08:59; Admin Dose 2 MG; Start 07/05/18 at 01:00 Fluticasone/ Vilanterol (Breo Ellipta 100-25 Mcg Inh) 1 inh DAILY INH Last administered on 07/13/18 08:47; Admin Dose 1 INH; Start 07/05/18 at 09:00 Promethazine HCl/ Dextromethorphan (Phenergan-Dm) 5 ml Q4H PRN PO COUGH; Start 07/09/18 at 15:00 Heparin Sodium (Porcine) (Heparin (1000 Units/ml)) 4,000 unit AFTER DIALYSIS CATHETER ; Start 07/08/18 at 16:30 Albumin Human 50 ml @ 100 mls/hr WITH DIALYSIS PRN IV SBP < 90 DURING DIALYSIS Last administered on 07/15/18 12:00; Admin Dose 100 MLS/HR; Start 07/08/18 at 16:30 Amiodarone HCl 900 mg/Dextrose 500 ml @ 0 mls/hr Q0M IV Last administered on 07/15/18 00:12; Admin Dose 16.6 MLS/HR; Start 07/13/18 at 19:30 Propofol 100 ml @ 2.919 mls/ hr Q12H PRN IV AGITATION Last administered on 07/15/18 01:38; Admin Dose 14.595 MLS/HR; Start 07/13/18 at 23:00 Vecuronium [place] 100 mg/ Dextrose 100 ml @ 4.87 mls/hr TITRATE IV ; Start 07/13/18 at 23:00 Fentanyl 100 ml @ 2.5 mls/hr TITRATE PRN IV PAIN Last administered on 07/14/18 18:49; Admin Dose 5 MLS/HR; Start 07/13/18 at 23:30 Eye Lubricant (Artificial Tears Oph) 2 drop QID BOTH EYES Last administered on 07/15/18 09:09; Admin Dose 2 DROP; Start 07/14/18 at 06:00 Eye Lubricant ([place] Oint) 1 applic Q6H BOTH EYES Last administered on 07/15/18 06:05; Admin Dose 1 APPLIC; Start 07/14/18 at 06:00 Acetaminophen (Tylenol Supp) 650 mg Q4H PRN PA TEMP > 37C; Start 07/14/18 at 03:00 Acetaminophen (Tylenol Liquid) 650 mg Q4H PRN NGT TEMP > 37C; Start 07/14/18 at 03:00 Acetaminophen (Tylenol Supp) 500 mg Q6H PA ; Start 07/15/18 at 03:00 Acetaminophen (Tylenol Liquid) 500 mg Q6H NGT ; Start 07/15/18 at 03:00 Norepinephrine 250 ml @ 1.875 mls/ hr TITRATE PRN IV BLOOD PRESSURE SUPPORT Last administered on 07/15/18at 09:56; Admin Dose 56.25 MLS/HR; Start 07/14/18 at 06:30 Aspirin (Aspirin) 81 mg DAILY NGT Last administered on 07/15/18at 09:24; Admin Dose 81 MG; Start 07/14/18 at 09:00 Ticagrelor (Brilinta) 90 mg BID NGT Last administered on 07/15/18at 09:24; Admin Dose 90 MG; Start 07/14/18 at 09:00 Famotidine (Pepcid Iv) 20 mg DAILY IV Last administered on 07/15/18at 09:25; Admin Dose 20 MG; Start 07/14/18 at 09:00 Sodium Bicarbonate 100 meq/Dextrose 1,000 ml @ 75 mls/hr [id number] IV Last ad ministered on 07/15/18at 09:27; Admin Dose 75 MLS/HR; Start 07/15/18 at 09:00 Dopamine HCl/ Dextrose 250 ml @ 7.298 mls/ hr TITRATE IV Last administered on 07/15/18at 09:15; Admin Dose 36.488 MLS/HR; Start 07/15/18 at 09:00 Phenylephrine HCl 250 ml @ 75 mls/hr TITRATE IV Last administered on 07/15/18at 11:23; Admin Dose 75 MLS/HR; Start 07/15/18 at 09:00 Insulin Aspart (Novolog Insulin Pen) NOVOLOG *MILD* ALGORI... Q4 SC ; Start 07/15/18 at 13:00 Miscellaneous Information 1 ea NOTE XX ; Start 07/15/18 at 12:00 Glucose (Glutose) 15 gm Q15M PRN PO DECREASED GLUCOSE; Start 07/15/18 at 12:00 Glucose (Glutose) 22.5 gm Q15M PRN PO DECREASED GLUCOSE; Start 07/15/18 at 12:00 Dextrose (D50w Syringe) 25 ml Q15M PRN IV DECREASED GLUCOSE; Start 07/15/18 at 12:00 Dextrose (D50w Syringe) 50 ml Q15M PRN IV DECREASED GLUCOSE; Start 07/15/18 at 12:00 Glucagon (Glucagen) 1 mg Q15M PRN IM DECREASED GLUCOSE; Start 07/15/18 at 12:00 Glucose (Glutose) 15 gm Q15M PRN BUCCAL DECREASED GLUCOSE; Start 07/15/18 at 12:00 Assessment/Plan Assessment/Plan (Daily) IMP: 1. s/p Recurrent Cardiopulmonary Arrest 2. Cardiogenic Shock 3. Severe Anoxic Brain Injury 4. ACS 5. Respiratory Failure 6. ESRD on HD 7. DM RECS: 1. I had a long discussion with patient's and brother about his prognosis especially in view of the recent developments and neurological examination. At the very least, I suggested no further chest compressions given likely futility. 2. Titrate off neosynephrine gtt given increased afterload 3. Continue IABP as per Cards 4. Vasopressor support 5. Vent support; increase rate for the time being 6. HD 7. Prognosis very poor 40 min cc time CELESTINA HERNANDEZ MD Jul 15, 2018 12:25
[2018-07-15] MEDS ORDERED: INSULIN ASPART [NOVOLOG] 3 ML PEN SC SCH (13:00)
--- NOTE | 2018-07-15 15:08 | CONS ---
Assessment/Plan Assessment/Plan Assessment/Plan (Daily) 1. End-stage renal disease HD was done at midnight last night, completed at 0300. Potassium at 0600 was 6.5 likely due to hypotension and metabolic acidosis. He suffered another cardiac arrest this am and was given kayexalate and sodium bicarbonate. HD done again this am, just completed. Continue to monitor labs q 6h. Continue bicarbonate infusion Probably will need HD again tomorrow 2. CAD s/p PCI Cardiogenic shock IABP On 3 pressors 3. DM Was on insulin drip, stopped due to low BS Monitor BS 4. Respiratory failure Ventilator per pulmonary 5. Very poor prognosis Consultation Date/Type/Reason Admit Date/Time Jul 04, 2018 at 20:45 Initial Consult Date 07/14/18 Type of Consult Nephrology Requesting Provider: LAURA AHN MD Date/Time of Note DATE: 07/15/18 TIME: 14:54 24 HR Interval Summary Free Text/Dictation Seen on dialysis. Patient is unresponsive. Discussed with nursing. Exam/Review of Systems Exam Vitals Vital Signs Date Temp Pulse Resp B/P (MAP) Pulse Ox O2 O2 Flow FiO2 Time Delivery Rate 07/15/18 68 14:20 07/15/18 18 90/63 (72) 100 Mechanical 14:15 Ventilator 07/15/18 95.7 13:00 07/15/18 100 08:30 07/13/18 3.0 12:15 Intake and Output 07/14/18 07/14/18 07/15/18 1515:00 23:00 07:00 IntakeIntake Total 409.785 ml 381.935 ml 497.585 ml OutputOutput Total 50 ml 50 ml 850 ml BalanceBalance 359.785 ml 331.935 ml -352.415 ml ENMT: intubated Respiratory: diminished breath sounds Cardiovascular: regular rate and rhythm Gastrointestinal: soft Extremities: other (s/p right foot amp ); No edema Results Result Diagram: 07/15/18 0534 07/15/18 0555 Results 24hrs Laboratory Tests Test 07/14/18 15:00 07/14/18 16:22 07/14/18 17:57 07/14/18 18:00 Bedside Glucose 135 127 138 White Blood 15.0 H Count Red Blood Count 3.32 L Hemoglobin 10.0 L Hematocrit 31.9 L Mean Corpuscular 96.1 Volume Mean Corpuscular 30.1 Hemoglobin Mean Corpuscular 31.3 L Hemoglobin Irma nt Red Cell 14.7 H Distribution Width Platelet Count 261 Mean Platelet 10.5 H Volume Immature 7.600 H Granulocytes % Neutrophils % Segmented 69 Neutrophils % (Manual) Band Neutrophils 5 H % (Manual) Lymphocytes % Lymphocytes % 12 L (Manual) Reactive 1 H Lymphocytes % (Manual) Monocytes % Monocytes % 4 (Manual) Eosinophils % Eosinophils % 2 (Manual) Basophils % Metamyelocytes % 3 H (manual) Myelocytes % 4 H (Manual) Nucleated Red 1 H Blood Cells % Immature 1.140 H Granulocytes # Neutrophils # Neutrophils # 10.5 H (Manual) Band Neutrophils 0.7 H # Lymphocytes 1.8 (Manual) Lymphocytes # Reactive 0.1 H Lymphocytes # Monocytes # Monocytes # 0.6 (Manual) Eosinophils # Basophils # Metamyelocytes # 0.4 H Myelocytes # 0.6 H Nucleated Red Blood Cells # Platelet DECREASED Estimate Giant Platelets 4 H Polychromasia 1+ Poikilocytosis 2+ Anisocytosis 1+ Prothrombin Time 19.8 #H Prothrombin Time 1.5 Ratio INR 1.67 International Normalized Ratio Activated 94.1 *H Partial Thrombop last Time Fibrinogen 669.0 H Sodium Level 135 Potassium Level 5.7 H Chloride Level 94 L Carbon Dioxide 24 Level Anion Gap 17 H Blood Urea 60 H Nitrogen Creatinine 5.30 H Est Glomerular 11 L Filtrat Rate mL/min Glucose Level 165 Lactic Acid 2.0 Level Calcium Level 9.8 Phosphorus Level 9.0 H Magnesium Level 2.9 H Troponin I 18.000 *H Amylase Level 48 Lipase 498 H Test 07/14/18 20:00 07/14/18 20:05 07/14/18 22:06 07/15/18 00:01 Blood Gas Blood arterial Specimen Source Arterial Blood 07/14/2018 8:00: Date Drawn 10 PM Arterial Blood 7.443 pH (Temp corrected) Arterial Blood 31.2 L pCO2 (Temp correct) Arterial Blood 94.8 pO2 (Temp corrected) Arterial Blood 21.8 L HCO3 Arterial Blood -2.9 Base Excess Arterial Blood 97.5 Oxygen Saturatio n Vin Test N/A Arterial Blood A-Line Gas Puncture Site Arterial 0.3 Blood Carboxyhem oglobin Arterial Blood 0 Methemoglobin Blood Gas A-a O2 158.6 H Differential Oxyhemoglobin 97.2 Percent Blood Gas 32.6 Temperature Blood Gas 18.0 Respiration Rate Blood Gas Actual 18 Respiration Rate Blood Gas VENT - AC Modality FiO2 40.0 Blood Gas Tidal 500.0 Volume Blood Gas Low 5.0 PEEP Setting Blood Gas UP Notified Whom Blood Gas 07/14/2018 8:13: Notified Time 32 PM Bedside Glucose 157 126 White Blood 14.2 H Count Red Blood Count 3.46 L Hemoglobin 10.3 L Hematocrit 32.8 L Mean Corpuscular 94.8 Volume Mean Corpuscular 29.8 Hemoglobin Mean Corpuscular 31.4 L Hemoglobin Irma nt Red Cell 14.7 H Distribution Width Platelet Count 269 Mean Platelet 10.8 H Volume Immature 7.100 H Granulocytes % Neutrophils % 76.0 Lymphocytes % 10.5 L Monocytes % 5.3 Eosinophils % 0.4 Basophils % 0.7 Nucleated Red 0.0 Blood Cells % Immature 1.010 H Granulocytes # Neutrophils # 10.8 H Lymphocytes # 1.5 Monocytes # 0.8 Eosinophils # 0.1 Basophils # 0.1 Nucleated Red 0.0 Blood Cells # Sodium Level 134 L Potassium Level 5.8 H Chloride Level 94 L Carbon Dioxide 22 Level Anion Gap 18 H Blood Urea 62 H Nitrogen Creatinine 5.64 H Est Glomerular 10 L Filtrat Rate mL/min Glucose Level 122 # Lactic Acid 3.9 *H Level Calcium Level 9.5 Phosphorus Level 9.9 H Magnesium Level 3.0 H Troponin I 17.500 *H Test 07/15/18 00:17 07/15/18 02:00 07/15/18 02:02 07/15/18 04:06 Bedside Glucose 103 91 96 Blood Gas Blood arterial Specimen Source Arterial Blood 07/15/2018 1:46: Date Drawn 04 AM Arterial Blood 7.466 H pH (Temp corrected) Arterial Blood 31.3 L pCO2 (Temp correct) Arterial Blood 94.3 pO2 (Temp corrected) Arterial Blood 23.1 HCO3 Arterial Blood -1.4 Base Excess Arterial Blood 97.5 Oxygen Saturatio n Vin Test N/A Arterial Blood A-Line Gas Puncture Site Arterial 0.3 Blood Carboxyhem oglobin Arterial Blood 0.3 Methemoglobin Blood Gas A-a O2 122.3 H Differential Oxyhemoglobin 96.9 Percent Blood Gas 32.6 Temperature Blood Gas 18.0 Respiration Rate Blood Gas Actual 18 Respiration Rate Blood Gas VENT - AC Modality FiO2 35.0 Blood Gas Tidal 500.0 Volume Blood Gas LSherry [facility] Notified Whom Blood Gas 07/15/2018 1:58: Notified Time 50 AM Test 07/15/18 05:34 07/15/18 05:52 07/15/18 05:55 07/15/18 07:58 White Blood 11.8 H Count Red Blood Count 3.36 L Hemoglobin 10.2 L Hematocrit 32.3 L Mean Corpuscular 96.1 Volume Mean Corpuscular 30.4 Hemoglobin Mean Corpuscular 31.6 L Hemoglobin Irma nt Red Cell 14.7 H Distribution Width Platelet Count 262 Mean Platelet 11.3 H Volume Immature 9.300 H Granulocytes % Neutrophils % 72.0 Segmented 49 Neutrophils % (Manual) Band Neutrophils 21 H % (Manual) Lymphocytes % 11.7 L Lymphocytes % 12 L (Manual) Reactive 9 H Lymphocytes % (Manual) Monocytes % 5.4 Monocytes % 3 (Manual) Eosinophils % 0.6 Eosinophils % 1 (Manual) Basophils % 1.0 Basophils % 1 (Manual) Myelocytes % 2 H (Manual) Promyelocytes % 2 H (Manual) Nucleated Red 0.5 H Blood Cells % Immature 1.100 H Granulocytes # Neutrophils # 8.5 H Neutrophils # 6.1 (Manual) Band Neutrophils 2.4 H # Lymphocytes 1.4 (Manual) Lymphocytes # 1.4 Reactive 1.0 H Lymphocytes # Monocytes # 0.6 Monocytes # 0.3 (Manual) Eosinophils # 0.1 Basophils # 0.1 Basophils # 0.1 H (Manual) Myelocytes # 0.2 H Promyelocytes # 0.2 H Nucleated Red 0.1 H Blood Cells # Platelet NORMAL Estimate Giant Platelets 1 H Polychromasia 2+ Anisocytosis 1+ Macrocytosis 1+ Bedside Glucose 83 45 *L Prothrombin Time 21.6 H Prothrombin Time 1.7 Ratio INR 1.87 International Normalized Ratio Activated 58.8 H Partial Thrombop last Time Fibrinogen 604.0 #H Sodium Level 135 Potassium Level 6.5 *H Chloride Level 96 L Carbon Dioxide 18 L Level Anion Gap 21 H Blood Urea 49 #H Nitrogen Creatinine 4.73 H Est Glomerular 13 L Filtrat Rate mL/min Glucose Level 78 # Lactic Acid 7.6 *H Level Calcium Level 9.1 Phosphorus Level 9.1 H Magnesium Level 2.7 H Troponin I 15.400 *H Amylase Level 205 #H Lipase 4742 H Test 07/15/18 08:00 07/15/18 08:05 07/15/18 09:58 07/15/18 10:16 Blood Gas Blood arterial Specimen Source Arterial Blood 07/15/2018 8:04: Date Drawn 39 AM Arterial Blood 7.227 *L pH (Temp corrected) Arterial Blood 37.8 pCO2 (Temp correct) Arterial Blood 86.7 pO2 (Temp corrected) Arterial Blood 15.4 L HCO3 Arterial Blood -11.4 L Base Excess Arterial Blood 92.5 L Oxygen Saturatio n Vin Test N/A Arterial Blood A-Line Gas Puncture Site Arterial 0.5 Blood Carboxyhem oglobin Arterial Blood 0.1 Methemoglobin Blood Gas A-a O2 118.9 H Differential Oxyhemoglobin 91.9 L Percent Blood Gas 37.0 Temperature Blood Gas 18.0 Respiration Rate Blood Gas Actual 18 Respiration Rate Blood Gas VENT - AC Modality FiO2 35.0 Blood Gas Tidal 500.0 Volume Blood Gas RLIM R.N. Critical Value Read Back Blood Gas MDA Notified Whom Blood Gas 07/15/2018 8:12: Notified Time 18 AM Bedside Glucose 96 56 L 179 Test 07/15/18 12:49 07/15/18 14:47 Bedside Glucose 158 White Blood Pending Count Red Blood Count Pending Hemoglobin Pending Hematocrit Pending Mean Corpuscular Pending Volume Mean Corpuscular Pending Hemoglobin Mean Corpuscular Pending Hemoglobin Irma nt Red Cell Pending Distribution Width Platelet Count Pending Mean Platelet Pending Volume Medications Medication Current Medications Amitriptyline HCl (Elavil) 50 mg DAILY PO Last administered on 07/13/18at 08:52; Admin Dose 50 MG; Start 07/05/18 at 09:00 Atorvastatin Calcium (Lipitor) 80 mg QHS PO Last administered on 07/12/18at 20:49; Admin Dose 80 MG; Start 07/05/18 at 21:00 Cyclobenzaprine HCl (Flexeril) 10 mg Q6H PO Last administered on 07/13/18at 17:30; Admin Dose 10 MG; Start 07/05/18 at 00:30 Docusate Sodium (Colace) 250 mg BID PO Last administered on 07/13/18at 08:44; Admin Dose 250 MG; Start 07/05/18 at 09:00 Duloxetine HCl (Cymbalta) 60 mg DAILY PO Last administered on 07/13/18 08:35; Admin Dose 60 MG; Start 07/05/18 at 09:00 Econazole Nitrate (Spectazole 1% Cr) 15 applic DAILY TOP Last administered on 07/15/18 09:28; Admin Dose 15 APPLIC; Start 07/05/18 at 09:00 Fluocinonide (Lidex 0.05% Cr) 1 applic DAILY TOP Last administered on 07/15/18 09:28; Admin Dose 1 APPLIC; Start 07/05/18 at 09:00 Albuterol/ Ipratropium (Duoneb) 3 ml Q8H RESP THERAPY PRN HHN SHORTNESS OF BREATH; Start 07/05/18 at 01:00 Acetaminophen (Tylenol Tab) 500 mg Q6H PRN PO MILD PAIN(1-3)OR ELEVATED TEMP Last administered on 07/11/18 08:49; Admin Dose 500 MG; Start 07/05/18 at 01:00 Morphine Sulfate (morphine) 2 mg Q3 PRN IV SEVERE PAIN LEVEL 7-10 Last administered on 07/13/18 08:59; Admin Dose 2 MG; Start 07/05/18 at 01:00 Promethazine HCl/ Dextromethorphan (Phenergan-Dm) 5 ml Q4H PRN PO COUGH; Start 07/09/18 at 15:00 Heparin Sodium (Porcine) (Heparin (1000 Units/ml)) 4,000 unit AFTER DIALYSIS CATHETER ; Start 07/08/18 at 16:30 Albumin Human 50 ml @ 100 mls/hr WITH DIALYSIS PRN IV SBP < 90 DURING DIALYSIS Last administered on 07/15/18 12:00; Admin Dose 100 MLS/HR; Start 07/08/18 at 16:30 Amiodarone HCl 900 mg/Dextrose 500 ml @ 0 mls/hr Q0M IV Last administered on 07/15/18 00:12; Admin Dose 16.6 MLS/HR; Start 07/13/18 at 19:30 Propofol 100 ml @ 2.919 mls/ hr Q12H PRN IV AGITATION Last administered on 07/15/18 01:38; Admin Dose 14.595 MLS/HR; Start 07/13/18 at 23:00 Vecuronium [place] 100 mg/ Dextrose 100 ml @ 4.87 mls/hr TITRATE IV ; Start 07/13/18 at 23:00 Fentanyl 100 ml @ 2.5 mls/hr TITRATE PRN IV PAIN Last administered on 07/14/18 18:49; Admin Dose 5 MLS/HR; Start 07/13/18 at 23:30 Eye Lubricant (Artificial Tears Oph) 2 drop QID BOTH EYES Last administered on 07/15/18 12:23; Admin Dose 2 DROP; Start 07/14/18 at 06:00 Eye Lubricant (Akwa Oint) 1 applic Q6H BOTH EYES Last administered on 07/15/18 12:23; Admin Dose 1 APPLIC; Start 07/14/18 at 06:00 Acetaminophen (Tylenol Supp) 650 mg Q4H PRN [place] TEMP > 37C; Start 07/14/18 at 03:00 Acetaminophen (Tylenol Liquid) 650 mg Q4H PRN NGT TEMP > 37C; Start 07/14/18 at 03:00 Acetaminophen (Tylenol Supp) 500 mg Q6H [place] ; Start 07/15/18 at 03:00 Acetaminophen (Tylenol Liquid) 500 mg Q6H NGT ; Start 07/15/18 at 03:00 Norepinephrine 250 ml @ 1.875 mls/ hr TITRATE PRN IV BLOOD PRESSURE SUPPORT Last administered on 07/15/18 13:38; Admin Dose 56.25 MLS/HR; Start 07/14/18 at 06:30 Aspirin (Aspirin) 81 mg DAILY NGT Last administered on 07/15/18 09:24; Admin Dose 81 MG; Start 07/14/18 at 09:00 Ticagrelor (Brilinta) 90 mg BID NGT Last administered on 07/15/18 09:24; Admin Dose 90 MG; Start 07/14/18 at 09:00 Famotidine (Pepcid Iv) 20 mg DAILY IV Last administered on 07/15/18 09:25; Admin Dose 20 MG; Start 07/14/18 at 09:00 Sodium Bicarbonate 100 meq/Dextrose 1,000 ml @ 75 mls/hr [id number] IV Last administered on 07/15/18 09:27; Admin Dose 75 MLS/HR; Start 07/15/18 at 09:00 Dopamine HCl/ Dextrose 250 ml @ 7.298 mls/ hr TITRATE IV Last administered on 07/15/18at 12:59; Admin Dose 72.975 MLS/HR; Start 07/15/18 at 09:00 Phenylephrine HCl 250 ml @ 75 mls/hr TITRATE IV Last administered on 07/15/18at 13:37; Admin Dose 210 MLS/HR; Start 07/15/18 at 09:00 Insulin Aspart (Novolog Insulin Pen) NOVOLOG *MILD* ALGORI... Q4 SC Last administered on 07/15/18at 12:58; Admin Dose 1 UNIT; Start 07/15/18 at 13:00 Miscellaneous Information 1 ea NOTE XX ; Start 07/15/18 at 12:00 Glucose (Glutose) 15 gm Q15M PRN PO DECREASED GLUCOSE; Start 07/15/18 at 12:00 Glucose (Glutose) 22.5 gm Q15M PRN PO DECREASED GLUCOSE; Start 07/15/18 at 12:00 Dextrose (D50w Syringe) 25 ml Q15M PRN IV DECREASED GLUCOSE; Start 07/15/18 at 12:00 Dextrose (D50w Syringe) 50 ml Q15M PRN IV DECREASED GLUCOSE; Start 07/15/18 at 12:00 Glucagon (Glucagen) 1 mg Q15M PRN IM DECREASED GLUCOSE; Start 07/15/18 at 12:00 Glucose (Glutose) 15 gm Q15M PRN BUCCAL DECREASED GLUCOSE; Start 07/15/18 at 12:00 ALEJANDRO GOMEZ MD Jul 15, 2018 15:07
--- NOTE | 2018-07-15 17:49 | EN ---
Date/Time of Note Date/Time of Note DATE: 07/15/18 TIME: 17:47 Event Note Medicine Medicine Event Note Patient taken off of life support as per family wishes. No brain stem reflexes noted; no cardiac pulsations; no spontaneous respiration. Patient pronounced at 17:30. Family at bedside. CELESTINA HERNANDEZ MD Jul 15, 2018 17:49
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
--- NOTE | 2018-07-17 01:07 | RADRPT ---
Vent Rate: 76 bpm RR Interval: 788 msec [place] Interval: 233 msec QRS Duration: 170 msec QT Interval: 444 msec QTC Interval: 500 msec P-R-T [place]: 74 - 56 - 79 degrees Sinus rhythm...normal P axis, V-rate 50- 99 Prolonged W[place] interval...WY >220, V-rate 50- 90 IVCD, consider LBBB...QRSd>120, notch/slur R I aVL V5-6 Inferolateral infarct, acute...ST>.10mV, inf-lat leads Anterior infarct, acute...ST >0.25mV, V2-V5 Probable acute infarct and LBBB...concordant ST Electronically Signed By: Power Muhammad
--- NOTE | 2018-07-17 01:08 | RADRPT ---
Vent Rate: 63 bpm RR Interval: 949 msec [place] Interval: 129 msec QRS Duration: 197 msec QT Interval: 549 msec QTC Interval: 564 msec P-R-T [place]: -90 - 31 - 77 degrees Pacemaker spikes or artifacts...timing non-diagnostic Sinus or ectopic atrial rhythm...P axis (-45,135) Multiple premature complexes, vent & supraven...V and SV complexes w/ short R-R Sinus pause...long R-R interval, normal QRSd Nonspecific intraventricular conduction delay...QRSd >115mS, not LBBB/RBBB ST elevation secondary to IVCD...Multiple VCG criteria Prolonged QT interval...QTc >500mS Electronically Signed By: Power Muhammad
--- NOTE | 2018-07-17 01:09 | RADRPT ---
Vent Rate: 60 bpm RR Interval: 0 msec [place] Interval: 216 msec QRS Duration: 118 msec QT Interval: 462 msec QTC Interval: 462 msec P-R-T [place]: 0 - 79 - 68 degrees Electronic atrial pacemaker Nonspecific intraventricular conduction delay ST elevation, consider anterolateral injury or acute infarct ST elevation, consider inferior injury or acute infarct ACUTE [place] Abnormal ECG Electronically Signed By: Power Muhammad
--- NOTE | 2018-07-17 01:14 | RADRPT ---
Vent Rate: 80 bpm RR Interval: 0 msec [place] Interval: 156 msec QRS Duration: 122 msec QT Interval: 384 msec QTC Interval: 442 msec P-R-T [place]: 31 - 59 - 66 degrees Normal sinus rhythm Nonspecific intraventricular conduction delay ST elevation, consider inferolateral injury or acute infarct ACUTE [place] Abnormal ECG Electronically Signed By: Power Muhammad
--- NOTE | 2018-07-17 01:14 | RADRPT ---
Vent Rate: 106 bpm RR Interval: 0 msec [place] Interval: 196 msec QRS Duration: 142 msec QT Interval: 352 msec QTC Interval: 467 msec P-R-T [place]: 31 - 0 - 5 degrees Electronic ventricular pacemaker Electronically Signed By: Power Muhammad
== END 2018-07-15 17:30 | disposition expired | DRG 270 ==
LOC: E/R 18:13 → TEL 20:45 → ICU 07-06 17:26 → TEL 07-09 05:33 → ICU 07-13 19:50
PROVIDERS: ADMIT Family Medicine; ATTEND Family Medicine
PROC: 5A1D70Z Performance of Urinary Filtration, Intermittent, Less than 6 Hours Per Day (ICD-10-PCS; 2018-07-05)
PROC: B211YZZ Fluoroscopy of Multiple Coronary Arteries using Other Contrast (ICD-10-PCS; 2018-07-06)
PROC: B215YZZ Fluoroscopy of Left Heart using Other Contrast (ICD-10-PCS; 2018-07-06)
PROC: B312YZZ Fluoroscopy of Left Subclavian Artery using Other Contrast (ICD-10-PCS; 2018-07-06)
PROC: B41GYZZ Fluoroscopy of Left Lower Extremity Arteries using Other Contrast (ICD-10-PCS; 2018-07-06)
PROC: 02HV33Z Insertion of Infusion Device into Superior Vena Cava, Percutaneous Approach (ICD-10-PCS; 2018-07-06)
PROC: 4A023N7 Measurement of Cardiac Sampling and Pressure, Left Heart, Percutaneous Approach (ICD-10-PCS; principal; 2018-07-06 15:00)
PROC: 027235Z Dilation of Coronary Artery, Three Arteries with Two Drug-eluting Intraluminal Devices, Percutaneous Approach (ICD-10-PCS; 2018-07-13)
PROC: 5A12012 Performance of Cardiac Output, Single, Manual (ICD-10-PCS; 2018-07-13)
PROC: 0BH17EZ Insertion of Endotracheal Airway into Trachea, Via Natural or Artificial Opening (ICD-10-PCS; 2018-07-13)
PROC: 0YHJ33Z Insertion of Infusion Device into Left Lower Leg, Percutaneous Approach (ICD-10-PCS; 2018-07-13)
PROC: 3E0A3GC Introduction of Other Therapeutic Substance into Bone Marrow, Percutaneous Approach (ICD-10-PCS; 2018-07-13)
PROC: 5A2204Z Restoration of Cardiac Rhythm, Single (ICD-10-PCS; 2018-07-13)
PROC: 5A1945Z Respiratory Ventilation, 24-96 Consecutive Hours (ICD-10-PCS; 2018-07-13)
PROC: 4A023N7 Measurement of Cardiac Sampling and Pressure, Left Heart, Percutaneous Approach (ICD-10-PCS; 2018-07-13)
PROC: B211YZZ Fluoroscopy of Multiple Coronary Arteries using Other Contrast (ICD-10-PCS; 2018-07-13)
PROC: 06HY33Z Insertion of Infusion Device into Lower Vein, Percutaneous Approach (ICD-10-PCS; 2018-07-13)
PROC: 5A02210 Assistance with Cardiac Output using Balloon Pump, Continuous (ICD-10-PCS; 2018-07-13 19:00)
DX: I25.110 Atherosclerotic heart disease of native coronary artery with unstable angina pectoris (principal); N18.6 End stage renal disease; R65.11 Systemic inflammatory response syndrome (SIRS) of non-infectious origin with acute organ dysfunction; J96.01 Acute respiratory failure with hypoxia; I50.22 Chronic systolic (congestive) heart failure; I13.2 Hypertensive heart and chronic kidney disease with heart failure and with stage 5 chronic kidney disease, or end stage renal disease; L03.116 Cellulitis of left lower limb; Z68.41 Body mass index [BMI] 40.0-44.9, adult; I74.3 Embolism and thrombosis of arteries of the lower extremities; G93.1 Anoxic brain damage, not elsewhere classified; I49.01 Ventricular fibrillation; I46.2 Cardiac arrest due to underlying cardiac condition; E11.649 Type 2 diabetes mellitus with hypoglycemia without coma; E11.22 Type 2 diabetes mellitus with diabetic chronic kidney disease; E66.01 Morbid (severe) obesity due to excess calories; E11.65 Type 2 diabetes mellitus with hyperglycemia; E78.5 Hyperlipidemia, unspecified; E11.51 Type 2 diabetes mellitus with diabetic peripheral angiopathy without gangrene; E87.5 Hyperkalemia; E11.40 Type 2 diabetes mellitus with diabetic neuropathy, unspecified; F32.9 Major depressive disorder, single episode, unspecified; G40.909 Epilepsy, unspecified, not intractable, without status epilepticus; I25.5 Ischemic cardiomyopathy; I48.0 Paroxysmal atrial fibrillation; I25.82 Chronic total occlusion of coronary artery; I95.9 Hypotension, unspecified; J44.9 Chronic obstructive pulmonary disease, unspecified; K52.9 Noninfective gastroenteritis and colitis, unspecified; K21.9 Gastro-esophageal reflux disease without esophagitis; K59.00 Constipation, unspecified; M54.2 Cervicalgia; R57.0 Cardiogenic shock; Z66 Do not resuscitate; T25.022A Burn of unspecified degree of left foot, initial encounter; T31.0 Burns involving less than 10% of body surface; X12.XXXA Contact with other hot fluids, initial encounter; Y93.G3 Activity, cooking and baking; Z87.891 Personal history of nicotine dependence; Z99.2 Dependence on renal dialysis; Z89.431 Acquired absence of right foot; Z95.810 Presence of automatic (implantable) cardiac defibrillator; Z79.4 Long term (current) use of insulin; Z79.01 Long term (current) use of anticoagulants; Z79.02 Long term (current) use of antithrombotics/antiplatelets; Z79.82 Long term (current) use of aspirin
CPT/HCPCS: 31500; 36415; 36556; 36600; 71045; 72040; 72072; 72100; 73030; 80048; 80053; 82150; 82550; 82553; 82728; 82803; 82947; 82962; 83036; 83540; 83605; 83690; 83735; 84100; 84132; 84484; 85025; 85384; 85610; 85730; 87070; 87081; 87340; 89220; 90935; 92941; 92950; 93005; 93306; 93454; 93458; 93970; 94002; 94003; 94770; 96374; C1725; C1751; C1874; C1887; C1894; J0171; J0282; J0461; J0583; J0610; J0690; J1170; J1265; J1644; J1815; J2250; J2270; J2370; J2543; J2916; J3010; J3370; J7040; J7060; J7070; P9047; Q9967